=== PATIENT | male | born 1970 | race Caucasian/White ===

== ENCOUNTER → 2018-07-26 | Outpatient (CLI) | payer MEDICARE ==
[~2018-07-26] MED LIST: ISOVUE-370 76% 100ML VIAL (Q9967) As Ordered
[2018-07-26 11:50] LABS: BASO % 0.3 % (0.0-1.0); EOS % 0.3 % (0.0-3.0); HEMATOCRIT 41.9 % (42.0-52.0); IMMATURE GRANULOCYTE % 0.3 % (0-3.0); LYMPH # 2.7 10^3/uL (1.5-4.5); LYMPH % 28.6 % (24.0-44.0); MEAN CORPUSCULAR HEMOGLOBIN 30.5 pg (27.0-33.0); MEAN CORPUSCULAR VOLUME 98.4 fl (80.0-96.0); MONO # 0.5 10^3/uL (0.0-0.8); MONO % 5.4 % (0.0-5.0); NEUTROPHILS # 6.2 10^3/uL (1.8-7.7); NEUTROPHILS % 65.1 % (36.0-66.0); PLATELET COUNT, AUTOMATED 214 10^3/uL (150-450); RED BLOOD COUNT 4.26 10^6/uL (4.30-6.10); RED CELL DISTRIBUTION WIDTH 13.6 % (11.5-14.5); WHITE BLOOD COUNT 9.5 10^3/uL (4.0-10.0)
[2018-07-26 12:19] LABS: ERYTHROCYTE SEDIMENTATION RATE 32 mm/hr (0-15)
[2018-07-26 12:20] LABS: ALBUMIN 3.7 GM/DL (3.2-5.2); ALBUMIN/GLOBULIN RATIO 0.86 (1.00-1.93); ALKALINE PHOSPHATASE 146 U/L (45-117); ALT/SGPT 15 U/L (12-78); ANION GAP 6 MEQ/L (8-16); AST/SGOT 11 U/L (7-37); BILIRUBIN,TOTAL 0.3 MG/DL (0.2-1.0); BLOOD UREA NITROGEN 18 MG/DL (7-18); C REACTIVE PROTEIN QUANTITATIV 2.27 MG/DL (0.00-0.30); CALCIUM LEVEL 9.2 MG/DL (8.5-10.1); CARBON DIOXIDE LEVEL 24 MEQ/L (21-32); CHLORIDE LEVEL 109 MEQ/L (98-107); CREATININE FOR GFR 1.39 MG/DL (0.70-1.30); GLOMERULAR FILTRATION RATE 57.8 (>60); GLUCOSE, FASTING 90 MG/DL (70-100); POTASSIUM SERUM 3.7 MEQ/L (3.5-5.1); SODIUM LEVEL 139 MEQ/L (136-145)
== END ==
LOC: M RAD 11:25
DX: M51.26 Other intervertebral disc displacement, lumbar region (principal); M51.24 Other intervertebral disc displacement, thoracic region; M51.27 Other intervertebral disc displacement, lumbosacral region; M12.88 Other specific arthropathies, not elsewhere classified, other specified site; M54.41 Lumbago with sciatica, right side; Z96.89 Presence of other specified functional implants
CPT/HCPCS: Q9967

== ENCOUNTER → 2018-12-08 | Outpatient (CLI) | payer MEDICARE ==
[~2018-12-08] MED LIST changes: +AMIT25TA2 OR; -ISOVUE-370 76% 100ML VIAL (Q9967) As Ordered; +MELOPOW PO; +NEUR100C OR; +hydrocodone PO
--- NOTE | 2018-12-08 20:10 | REP ---
Low: Exertional chest pain. Technique: PA and lateral. Comparison: 08/18/2013. Findings: Mediastinum and cardiac silhouette are within normal limits and stable. Lung mayorga demonstrate chronic changes without acute consolidation, effusion, or pneumothorax. Impression: Chronic stable changes. No acute cardiopulmonary process or focal consolidation appreciated. Electronically Signed by Reg Costello MD 12/08/2018 08:01 P
--- NOTE | 2018-12-08 20:40 | REP ---
Clinical: Acute thoracic pain. Technique: AP, lateral, swimmers views of the thoracic spine. Findings: Chronic dextroconvex scoliosis and mild/moderate multilevel degenerative changes include endplate sclerosis and disc space narrowing. Alignment and kyphosis maintained. No acute fracture / compression injury or subluxation identified. Neural stimulator in the mid/lower thoracic epidural space. Impression: Mild/moderate multilevel degenerative changes. No acute fracture / compression injury or subluxation. Electronically Signed by Reg Costello MD 12/08/2018 08:32 P
== END ==
LOC: M ADAMS 16:09
PROVIDERS: ATTEND Physician Assistant
DX: R07.9 Chest pain, unspecified (principal); M41.9 Scoliosis, unspecified; M51.34 Other intervertebral disc degeneration, thoracic region
CPT/HCPCS: 71046; 72070; 80053; 80061; 82607; 82746; 84439; 84443; 85027; G0463

== ENCOUNTER → 2019-05-23 | Outpatient (REF) | payer MEDICARE ==
[2019-05-23 16:39] LABS: BASO % 0.5 % (0.0-1.0); EOS % 0.7 % (0.0-3.0); HEMOGLOBIN 13.1 g/dl (13.5-17.5); LYMPH # 2.2 10^3/uL (1.5-5.0); LYMPH % 37.5 % (24.0-44.0); MEAN CORPUSCULAR HEMOGLOBIN 30.4 pg (27.0-33.0); MEAN CORPUSCULAR HGB CONC 31.2 g/dl (32.0-36.5); MEAN CORPUSCULAR VOLUME 97.4 fl (80.0-96.0); MONO # 0.3 10^3/uL (0.0-0.8); MONO % 5.8 % (0.0-5.0); NEUTROPHILS # 3.2 10^3/uL (1.5-8.5); NEUTROPHILS % 55.3 % (36.0-66.0); PLATELET COUNT, AUTOMATED 237 10^3/uL (150-450); RED BLOOD COUNT 4.31 10^6/uL (4.30-6.10); WHITE BLOOD COUNT 5.7 10^3/uL (4.0-10.0)
[2019-05-23 16:56] LABS: APPEARANCE, URINE CLEAR (CLEAR); BACTERIA, URINE AUTO NEGATIVE (NEGATIVE); BILIRUBIN, URINE AUTO NEGATIVE (NEGATIVE); BLOOD, URINE BLOOD NEGATIVE (NEGATIVE); COLOR, URINE YELLOW (YELLOW); GLUCOSE, URINE (UA) AUTO NEGATIVE (NEGATIVE); KETONE, URINE AUTO NEGATIVE (NEGATIVE); LEUKOCYTE ESTERASE, URINE AUTO NEGATIVE (NEGATIVE); MUCUS, URINE SMALL (NEGATIVE); NITRITE, URINE AUTO NEGATIVE (NEGATIVE); PROTEIN, URINE AUTO NEGATIVE (NEGATIVE); RBC, URINE AUTO 0 /HPF (0-3); SPECIFIC GRAVITY URINE AUTO 1.006 (1.002-1.035); SQUAMOUS EPITHELIAL CELL UR AU 0 /HPF (0-6); UROBILINOGEN, URINE AUTO 0.2 mg/dL (0.0-2.0); WBC, URINE AUTO 0 /HPF (0-3)
[2019-05-23 17:07] LABS: ALBUMIN 3.8 GM/DL (3.2-5.2); ALT/SGPT 21 U/L (12-78); BILIRUBIN,TOTAL 0.3 MG/DL (0.2-1.0); BLOOD UREA NITROGEN 7 MG/DL (7-18); CALCIUM LEVEL 9.1 MG/DL (8.5-10.1); CARBON DIOXIDE LEVEL 26 MEQ/L (21-32); CHLORIDE LEVEL 104 MEQ/L (98-107); CREATININE FOR GFR 1.34 MG/DL (0.70-1.30); GLOMERULAR FILTRATION RATE > 60.0 (>56); GLUCOSE, FASTING 106 MG/DL (70-100); POTASSIUM SERUM 4.1 MEQ/L (3.5-5.1); SODIUM LEVEL 138 MEQ/L (136-145); TOTAL PROTEIN 7.6 GM/DL (6.4-8.2)
== END ==
LOC: M SFHCPLAZ 14:01
PROVIDERS: ATTEND Physician Assistant Medical
DX: N20.0 Calculus of kidney (principal); R30.0 Dysuria
CPT/HCPCS: 36415; 80053; 81001; 85025; G0463

== ENCOUNTER 2019-10-26 15:13 | Emergency (ER) | payer MEDICARE, OTHER ==
[~2019-10-26] VITALS: Ht 175.3 cm; Wt 63.5 kg
[2019-10-26] MEDS ORDERED: GABA800T4 (15:23)
[2019-10-26] MEDS ORDERED: SUMA100T2 (15:23)
[2019-10-26] MEDS ORDERED: AMIT100TA (15:23)
[2019-10-26] MEDS ORDERED: SUBO8MIS (15:23)
[2019-10-26] MEDS ORDERED: ALBU8.5H (15:23)
[2019-10-26] MEDS ORDERED: BUPR20DI3 (15:23)
--- NOTE | 2019-10-26 17:24 | REP ---
Clinical: Cough and dyspnea . Comparison: 12/08/2018 . Findings: The mediastinum and cardiac silhouette are stable and within normal limits for portable technique. The lung mayorga are clear without acute consolidation, effusion, or pneumothorax. Skeletal structures are intact. Epidural stimulator stable position. Impression: No acute cardiopulmonary process appreciated. Electronically Signed by Reg Costello MD 10/26/2019 05:16 P
[2019-10-26 17:27] LABS: BASO % 0.3 % (0.0-1.0); EOS # 0.1 10^3/uL (0.0-0.5); EOS % 0.5 % (0.0-3.0); HEMOGLOBIN 13.6 g/dl (13.5-17.5); LYMPH # 2.3 10^3/uL (1.5-5.0); LYMPH % 24.7 % (24.0-44.0); MEAN CORPUSCULAR HEMOGLOBIN 29.5 pg (27.0-33.0); MEAN CORPUSCULAR HGB CONC 30.9 g/dl (32.0-36.5); MEAN CORPUSCULAR VOLUME 95.4 fl (80.0-96.0); MONO # 0.5 10^3/uL (0.0-0.8); MONO % 5.3 % (0.0-5.0); NEUTROPHILS # 6.5 10^3/uL (1.5-8.5); PLATELET COUNT, AUTOMATED 242 10^3/uL (150-450); RED BLOOD COUNT 4.61 10^6/uL (4.30-6.10); WHITE BLOOD COUNT 9.4 10^3/uL (4.0-10.0)
[2019-10-26 17:55] LABS: INFLUENZA A AMPLIFICATION NEGATIVE (NEGATIVE); INFLUENZA B AMPLIFICATION NEGATIVE (NEGATIVE)
[2019-10-26 17:56] LABS: BLOOD UREA NITROGEN 8 MG/DL (7-18); CALCIUM LEVEL 8.6 MG/DL (8.5-10.1); CARBON DIOXIDE LEVEL 22 MEQ/L (21-32); CHLORIDE LEVEL 106 MEQ/L (98-107); CK-MB VALUE MASS < 1.0 NG/ML (<3.6); CPK CREATINE PHOSPHOKINASE 49 U/L (39-308); GLOMERULAR FILTRATION RATE > 60.0 (>56); GLUCOSE, FASTING 75 MG/DL (70-100); MB/CK RELATIVE INDEX 2.04 (< OR =4); POTASSIUM SERUM 4.3 MEQ/L (3.5-5.1); SODIUM LEVEL 138 MEQ/L (136-145); TROPONIN I < 0.02 NG/ML (< 0.10)
[2019-10-26] MEDS ORDERED: ISOVUE-370 76% 100ML VIAL (Q9967) As Ordered ONE (18:26)
[2019-10-26] MEDS ORDERED: methylPREDNISolone INJ 125 MG/2 ML VIAL (J2930) IV ONE (18:30)
--- NOTE | 2019-10-26 19:25 | REPVR ---
PROCEDURE INFORMATION: Exam: CT Angiography Chest With Contrast Exam date and time: 10/26/2019 6:31 PM Age: 49 years old Clinical indication: Shortness of breath; Additional info: SOB; R/O pe TECHNIQUE: Imaging protocol: Computed tomographic angiography of the chest with intravenous contrast. 3D rendering: MIP and/or 3D reconstructed images were created by the technologist. Radiation optimization: All CT scans at this facility use at least one of these dose optimization techniques: automated exposure control; mA and/or kV adjustment per patient size (includes targeted exams where dose is matched to clinical indication); or iterative reconstruction. Contrast material: ISOVUE 370; Contrast volume: 75 ml; Contrast route: IV; COMPARISON: CR PORTABLE CHEST X-RAY 10/26/2019 5:04 PM FINDINGS: Pulmonary arteries: There is opacification of the pulmonary arteries with no evidence of pulmonary embolus. Aorta: There is opacification of the aorta which appears intact. Lungs: Clear appearing lungs. Pleural space: There is no evidence of pneumothorax or pleural effusion. Heart: The heart is normal in size and there is no pericardial effusion. Kidneys and ureters: There is a 5 mm calcified stone upper pole right kidney and nonobstructive. Lymph nodes: There are moderate-sized lymph nodes along the trachea 3 of which measure approximately 2 cm each. The lymph nodes in the subcarinal location or 1 cm each. Bones/joints: There is no evidence of a fracture. A stimulator device is noted lower thoracic spinal canal. Soft tissues: Unremarkable. IMPRESSION: No evidence of pulmonary embolus. Electronically signed by: Josue Aden On 10/26/2019 19:25:08 PM
[2019-10-26 20:25] VITALS: O2SAT 95
[2019-10-26] MEDS ORDERED: PRED10TA2 PO (20:30)
[2019-10-26 20:33] VITALS: BP 178/91
--- NOTE | 2019-10-27 05:49 | ECGEPIP ---
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
== END 2019-10-26 20:50 | disposition home or self-care (01) ==
LOC: M ED 15:13
DX: J44.1 Chronic obstructive pulmonary disease with (acute) exacerbation (principal); Z79.899 Other long term (current) drug therapy; Z79.891 Long term (current) use of opiate analgesic; Z88.5 Allergy status to narcotic agent; F17.210 Nicotine dependence, cigarettes, uncomplicated
CPT/HCPCS: 71045; 71275; 80048; 82550; 82553; 84484; 85025; 87502; 93005; 93041; 94760; 96374; 99285; J2930; Q9967

== ENCOUNTER → 2020-11-05 | Outpatient (REF) | payer OTHER ==
[~2020-11-05] MED LIST changes: +ALBU8.5H; +AMIT100TA; +BUPR20DI3; +GABA800T4; +PRED10TA2 PO; +SUBO8MIS; +SUMA100T2
[2020-11-05 17:20] LABS: HEMOGLOBIN 12.7 g/dl (13.5-17.5); MEAN CORPUSCULAR HEMOGLOBIN 29.5 pg (27.0-33.0); MEAN CORPUSCULAR HGB CONC 30.2 g/dl (32.0-36.5); MEAN CORPUSCULAR VOLUME 97.7 fl (80.0-96.0); PLATELET COUNT, AUTOMATED 221 10^3/uL (150-450); WHITE BLOOD COUNT 5.6 10^3/uL (4.0-10.0)
[2020-11-05 17:51] LABS: ALBUMIN 3.7 GM/DL (3.2-5.2); ALT/SGPT 19 U/L (12-78); BILIRUBIN,TOTAL 0.5 MG/DL (0.2-1.0); BLOOD UREA NITROGEN 7 MG/DL (7-18); CALCIUM LEVEL 9.3 MG/DL (8.5-10.1); CARBON DIOXIDE LEVEL 26 MEQ/L (21-32); CHLORIDE LEVEL 107 MEQ/L (98-107); CHOLESTEROL LEVEL 220 MG/DL (<200); CHOLESTEROL RISK RATIO 4.313 (<5); CREATININE FOR GFR 1.28 MG/DL (0.70-1.30); FREE T4 0.95 NG/DL (0.76-1.46); GLOMERULAR FILTRATION RATE > 60.0 (>56); GLUCOSE, FASTING 73 MG/DL (70-100); HDL CHOLESTEROL 51 MG/DL (>40); LDL CHOLESTEROL 149 MG/DL (<100); NON-HDL-C 169 MG/DL; POTASSIUM SERUM 5.4 MEQ/L (3.5-5.1); SODIUM LEVEL 138 MEQ/L (136-145); THYROID STIMULATING HORMONE 0.725 uIU/ML (0.358-3.740); TOTAL PROTEIN 7.3 GM/DL (6.4-8.2); TRIGLYCERIDES LEVEL 98 MG/DL (<150)
== END ==
LOC: M SFHCADAM 15:01
PROVIDERS: ATTEND Family Medicine
DX: I73.9 Peripheral vascular disease, unspecified (principal); R06.00 Dyspnea, unspecified; Z79.899 Other long term (current) drug therapy
CPT/HCPCS: 80053; 80061; 84439; 84443; 85027; G0463

== ENCOUNTER → 2020-11-25 | Outpatient (CLI) | payer OTHER ==
--- NOTE | 2020-11-25 19:06 | REP ---
INDICATION: COPD. COMPARISON: Chest CT with IV contrast dated 10/26/2019. TECHNIQUE: Chest CT without IV contrast. FINDINGS: Low there are no infiltrates or pleural effusions. There are no lung nodules or masses. Is difficult to identify any bulla. I suspect there is borderline bronchiectasis. There are minor areas of dependent atelectasis in the lung bases. The lung mayorga are otherwise clear. There is no mediastinal or axillary lymph node enlargement. The study is insensitive for hilar lymph node enlargement in the absence of IV contrast. The unenhanced thoracic aorta is unremarkable. Cardiac size is normal. There is no pericardial effusion. The visualized unenhanced upper abdominal contents are unremarkable except for 2 or 3 tiny nonobstructive calculi in the upper pole of the right kidney. There are no adrenal masses. IMPRESSION: No bulla are identified. There are no infiltrates or pleural effusions. There are no nodules or masses. I suspect there is borderline bronchiectasis. Otherwise, negative CT study of the chest. <Electronically signed by Ivan Devine > 11/25/20 [id number]
== END ==
LOC: M RAD 18:12
PROVIDERS: ATTEND Family Medicine
DX: J44.9 Chronic obstructive pulmonary disease, unspecified (principal)

== ENCOUNTER → 2020-12-05 | Outpatient (CLI) | payer OTHER ==
--- NOTE | 2020-12-06 10:42 | ECHO ---
DATE OF PROCEDURE: 12/05/2020 Age: 50 Gender: Male Height: 175 cm Weight: 64 kg REFERRING PHYSICIAN: Mauricio Zamudio MD. INDICATION: Dyspnea. MEASUREMENTS: IVS 1.3 cm LV 5.3 cm LVPW 0.9 cm LA 4.1 cm Aorta 2.9 cm IVC 1.6 cm Mitral E wave velocity 203 Mitral A wave 215 E prime septal 6.0 E prime lateral 9.2. FINDINGS: This study is of fair technical quality with some difficult visualization. The patient is in sinus rhythm with ventricular rate around 90 beats per minute. Left ventricle is normal size and has hyperdynamic contractility. I estimate LVEF 70% to 75%. No segmental wall motion abnormalities are noted. Right ventricle was relatively poorly visualized, but it appears normal size and appears to have normal systolic function. Both atria are enlarged. Aortic valve is tricuspid, it is sclerotic, especially noncoronary cusps have significant calcifications, but mobility of cusps is preserved. There are prominent calcifications in the chordal apparatus and mitral leaflets. Based on poor quality 2D imaging, there is at least moderate mitral stenosis. Tricuspid valve appears normal. Pulmonic valve was not seen. No pericardial effusion is noted. Inferior vena cava is of normal size and appropriately collapses with inspiration, indicative of normal central venous pressure. Aortic root, aortic arch, and visualized segment of the abdominal aorta all appear normal. Doppler interrogation of the aortic valve reveals no significant stenosis or insufficiency. There is likely severe mitral insufficiency and at least moderate mitral stenosis. Peak gradient was 22 and mean gradient 12 mmHg. Moderate tricuspid insufficiency is noted. Calculated pulmonary artery pressure is approximately 70 mmHg corresponding to severe pulmonary hypertension. Evaluation of diastolic function is inconclusive discussed to underlying mitral stenosis. CONCLUSIONS: 1. Study is of fair technical quality, the patient is in sinus rhythm. 2. Normal LV size with mild LVH, estimated LVEF 70% to 75%. 3. Aortic sclerosis with no significant stenosis or insufficiency. 4. 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 5. Normal central venous pressure. 6. Severe pulmonary hypertension. COMMENTS: The patient has very significant mitral valvular disease. Further evaluation is recommended with either direct cardiac catheterization or first transesophageal echocardiogram with cardiac catheterization to follow in preparation for mitral valve surgery. [facility]
== END ==
LOC: M CARPUL 10:21
PROVIDERS: ATTEND Family Medicine
DX: R06.00 Dyspnea, unspecified (principal); I35.0 Nonrheumatic aortic (valve) stenosis; I27.20 Pulmonary hypertension, unspecified

== ENCOUNTER → 2021-01-01 | Outpatient (CLI) | payer OTHER ==
--- NOTE | 2021-01-01 11:18 | REP ---
INDICATION: ATH RITA ART OF EXT WI INTRMT SHELLY, AIDAN LEGS. COMPARISON: None. TECHNIQUE: Bilateral lower extremity arterial Doppler ultrasound. FINDINGS: Ankle brachial indices are normal measured at 1.23 on the right and 1.23 on the left. Minimal plaquing is seen bilaterally in the lower extremity arterial tree. Normal triphasic arterial Doppler waveforms are noted throughout bilaterally. There is no evidence of high-grade stenosis or occlusion on either side. Right lower extremity arterial Doppler velocity chart: Right [employer]ING [employer]ER PSV 150 cm/S Profundal 151 Proximal SFA 143 Mid SFA 103 Distal SFA 89 Popliteal 86 Proximal TLIA 76 Tibial-peroneal trunk 76 Proximal [facility] EPIDEMIOLOGIST 75 Distal [facility] EPIDEMIOLOGIST 87 Distal TILA 76 Left lower extremity arterial Doppler velocity chart: Left [employer]ING [employer] PSV 117 cm/S Profundal 116 Proximal SFA 129 Mid SFA 93 Distal SFA 83 Popliteal 89 Proximal TILA 61 Tibial-peroneal trunk 78 Proximal [facility] EPIDEMIOLOGIST 97 Distal [facility] EPIDEMIOLOGIST 75 Distal TILA 75 IMPRESSION: Minimal plaquing. No high-grade stenosis or occlusion. <Electronically signed by Arash Gonzalez > 01/01/21 [id number]
== END ==
LOC: M RAD 10:20
PROVIDERS: ATTEND Physician Assistant
DX: I70.213 Atherosclerosis of native arteries of extremities with intermittent claudication, bilateral legs (principal)

== ENCOUNTER → 2021-01-25 | Outpatient (CLI) | payer OTHER ==
[~2021-01-25] MED LIST changes: -ALBU8.5H; +ALBU8.5H INH; -AMIT100TA; +AMIT100TA PO; -GABA800T4; +GABA800T4 PO; -SUMA100T2; +SUMA100T2 PO
== END ==
LOC: M LABSMTC 10:32
PROVIDERS: ATTEND Anesthesiology
DX: Z01.818 Encounter for other preprocedural examination (principal); Z11.52 Encounter for screening for COVID-19

== ENCOUNTER 2021-01-29 06:05 | Day surgery (SDC) | payer OTHER ==
[~2021-01-29] VITALS: Ht 175.3 cm; Wt 63.4 kg
[~2021-01-29 06:05] MED LIST changes: +LR 1,000 ML IV ONE
[2021-01-29] MEDS ORDERED: LISI-898 PO (06:31)
[2021-01-29] MEDS ORDERED: ATOR80TA59 PO (06:31)
[2021-01-29] MEDS ORDERED: FLOV100A INH (06:31)
[2021-01-29] MEDS ORDERED: SPIR12.9 INH (06:31)
[2021-01-29] MEDS ORDERED: fentaNYL 100 MCG/2 ML INJECTION (J3010) As Ordered ONE (07:14)
[2021-01-29] MEDS ORDERED: LIDOCAINE 2% 100MG/5ML SDV (FOR ANES.) As Ordered ONE (07:14)
[2021-01-29] MEDS ORDERED: propofoL 200 MG/20 ML VIAL As Ordered ONE (07:15)
[2021-01-29] MEDS ORDERED: CETACAINE SPRAY 5GM As Ordered ONE (07:19)
[2021-01-29] MEDS ORDERED: LIDOCAINE VISCOUS 2% SOLN 15ML UDC As Ordered ONE (07:19)
[2021-01-29] MEDS ORDERED: GLYCOPYRROLATE INJ 0.2 MG/ML 2 ML VIAL As Ordered ONE (07:46)
[2021-01-29] MEDS ORDERED: VASOPRESSIN INJ 20 UNITS/ML VIAL As Ordered ONE (07:48)
[2021-01-29] MEDS ORDERED: ePHEDrine SULFATE 25 MG/5 ML(5MG/ML) SYRINGE As Ordered ONE (07:53)
[2021-01-29] MEDS ORDERED: LR 1,000 ML IV SCH (08:35)
[2021-01-29 08:36] VITALS: BP 104/58
--- NOTE | 2021-01-29 08:56 | ECGEPIP ---
[facility] Test Date: 2021-01-29 Pat Name: PRINCESS MONTES Department: Room: - Gender: Male Radio Installer: celso : 1970 Requested By: Toby Parish Order Number: [id number] Reading MD: Molina Howard Measurements Intervals [place] Rate: 61 P: 77 ID: [id number] QRS: 63 QRSD: 94 T: 64 QT: 396 QTc: 398 Interpretive Statements Normal sinus rhythm Possible Left atrial enlargement Similar to tracing done 10-26-19 Electronically Signed on 01-29-2021 8:55:51 EDT by Molina Howard
--- NOTE | 2021-01-29 18:45 | T-ECHO ---
TRANSESOPHAGEAL ECHO DATE: 01/29/2021 INDICATION: Mitral valve disease. Anesthesiology: Rosalio Soni CRNA BRIEF HISTORY: Mr. Andrews is a 50-year-old man who has had severe exertional dyspnea that has gotten much worse over the course of the last several months. He also has symptoms suggestive of PND. Cardiac catheterization revealed evidence for mild nonobstructive CAD and approximately moderate mitral stenosis, but left ventriculogram was not performed and consequently the severity of mitral insufficiency has remained uncertain. I discussed the nature of the procedure with the patient on an outpatient basis and he signed appropriate consent. The procedure was performed in the operating room. DESCRIPTION OF PROCEDURE: The patient presented in a fasting condition. After appropriate time-out was taken and all appropriate monitors were applied, his posterior pharynx was anesthetized using viscous Lidocaine and Cetacaine spray. He was then positioned in the left lateral decubitus position. Bite block and oxygen mask were placed. When anesthesiology administered sedation the probe was introduced into the esophagus and later the stomach without difficulty. After appropriate images were obtained it was withdrawn. There were no immediate complications, but the patient did have episodes of hypotension and a brief episode of bradycardia during the procedure. The patient recovered promptly in recovery. FINDINGS: Normal left ventricular systolic function with estimated LVEF 60% to 65%. I do not appreciate any segmental wall motion abnormalities. Also the right ventricle is of normal size and systolic function. Right atrium is normal size. Left atrium appears severely enlarged. Aortic valve is tricuspid. It has normal mobility and no significant functional abnormality. Tricuspid valve also appears anatomically normal. There is tricuspid insufficiency seen. Quality of signal was not sufficient to adequately estimate pulmonary artery pressure. Pulmonic valve was not well seen. Atrial septum is intact based on two-dimensional and color Doppler imaging. The left atrial appendage is free of thrombi. There is early systolic reversal of flow in the left, but not right-sided, pulmonary veins. The mitral valve appears severely thickened. There is restriction of leaflet motion and prolapse of anterior mitral leaflet. By color Doppler imaging, there is approximately moderate mitral insufficiency with several MR jets, but there is a flow reversal in the left lower pulmonary vein suggesting that the mitral insufficiency is potentially severe. The mean transmitral gradient is 7 and peak gradient 20 mmHg corresponding to moderate mitral stenosis. The aortic arch and visualized segment of descending aorta are indicative of atherosclerosis, even though there are no ulcerations or visible thrombi. CONCLUSION: 1. Preserved left ventricular systolic function. 2. Preserved right ventricular systolic function. 3. 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 Stenosis is likely moderate, insufficiency moderately severe or severe. 4. Left atrial appendage is free of thrombus. 5. Early systolic reversal of flow in the left-sided pulmonary veins. 6. Intact atrial septum. 7. Trace tricuspid insufficiency. 8. Competent aortic valve. 9. Atherosclerosis apparent in the thoracic aorta. The patient will be seen in follow-up next week to discuss further management. [facility]
== END 2021-01-29 09:00 | disposition home or self-care (01) ==
LOC: M SDC 06:05
PROVIDERS: ATTEND Internal Medicine Cardiovascular Disease
DX: I08.2 Rheumatic disorders of both aortic and tricuspid valves (principal); I70.0 Atherosclerosis of aorta; R06.09 Other forms of dyspnea; I25.10 Atherosclerotic heart disease of native coronary artery without angina pectoris; K21.9 Gastro-esophageal reflux disease without esophagitis; R06.02 Shortness of breath; M19.90 Unspecified osteoarthritis, unspecified site; G90.50 Complex regional pain syndrome I, unspecified; G43.909 Migraine, unspecified, not intractable, without status migrainosus; J44.9 Chronic obstructive pulmonary disease, unspecified; G47.9 Sleep disorder, unspecified; Z96.82 Presence of neurostimulator; Z87.442 Personal history of urinary calculi; F17.210 Nicotine dependence, cigarettes, uncomplicated; Z88.5 Allergy status to narcotic agent; Z79.899 Other long term (current) drug therapy; Z79.82 Long term (current) use of aspirin; Z79.51 Long term (current) use of inhaled steroids; Z79.891 Long term (current) use of opiate analgesic
CPT/HCPCS: 93005; 93312; 93320; 93325; J3010

== ENCOUNTER 2021-02-21 16:45 | Emergency (ER) | payer OTHER ==
[~2021-02-21] VITALS: Ht 175.3 cm; Wt 68.2 kg
[~2021-02-21 16:45] MED LIST changes: +ATOR80TA59 PO; +FLOV100A INH; +LISI-898 PO; -LR 1,000 ML IV ONE; +SPIR12.9 INH
[2021-02-21 16:46] VITALS: BP 135/94
[2021-02-21] MEDS ORDERED: ECOT81TA5 PO (16:53)
[2021-02-21] MEDS ORDERED: MORPHINE 4 MG/ML 1ML VIAL/SYRINGE (J2270) IV ONE (17:30)
--- NOTE | 2021-02-21 18:01 | REP ---
INDICATION: trauma. COMPARISON: None. TECHNIQUE: AP and lateral views of the left humerus are presented. FINDINGS: AP and latter views of the oral left humerus demonstrate normal bones, joints, and soft tissues. No fracture or subluxation is seen. No opaque foreign body noted. IMPRESSION: Negative left humerus series. <Electronically signed by Arash Gonzalez > 02/21/21 [id number]
--- NOTE | 2021-02-21 18:02 | REP ---
INDICATION: trauma. COMPARISON: None. TECHNIQUE: Four views of the left foot are presented. FINDINGS: Four views of the left foot demonstrate normal bones, joints, and soft tissues. No fracture or subluxation is seen. No opaque foreign body noted. There is plantar calcaneal spurring. IMPRESSION: Negative left foot series. Heel spurring. <Electronically signed by Arash Gonzalez > 02/21/21 [id number]
--- NOTE | 2021-02-21 18:03 | REP ---
INDICATION: trauma. COMPARISON: None. TECHNIQUE: Four views of the left ankle. FINDINGS: Four views of the left ankle demonstrate intact ankle mortise. Achilles calcaneal spurring is noted. No fracture is seen. There is a small bone island in the distal tibia. Joint spaces are preserved. IMPRESSION: No acute abnormality. Heel spurring. Otherwise negative. <Electronically signed by Arash Gonzalez > 02/21/21 [id number]
== END 2021-02-21 19:56 | disposition home or self-care (01) ==
LOC: M ED 16:45
DX: S93.402A Sprain of unspecified ligament of left ankle, initial encounter (principal); S40.022A Contusion of left upper arm, initial encounter; W17.89XA Other fall from one level to another, initial encounter; Y92.009 Unspecified place in unspecified non-institutional (private) residence as the place of occurrence of the external cause; Y93.89 Activity, other specified; Y99.8 Other external cause status; J44.9 Chronic obstructive pulmonary disease, unspecified; Z79.51 Long term (current) use of inhaled steroids; Z79.82 Long term (current) use of aspirin; Z79.899 Other long term (current) drug therapy; Z87.442 Personal history of urinary calculi; Z87.820 Personal history of traumatic brain injury; Z88.5 Allergy status to narcotic agent
CPT/HCPCS: 73060; 73610; 73630; 96374; 99284; J2270

== ENCOUNTER → 2021-06-20 | Outpatient (CLI) | payer OTHER ==
[~2021-06-20] MED LIST changes: +ECOT81TA5 PO
--- NOTE | 2021-06-20 10:17 | REP ---
INDICATION: RT GROIN PAIN, RT LEG PAIN, SWELLINGC COMPARISON: None. TECHNIQUE: Block scale and color Doppler evaluation using linear high frequency transducer. FINDINGS: Ultrasound examination of the right lower extremity deep venous structures from the common femoral vein through the calf/ankle to include the peroneal, and tibial veins demonstrates normal compressibility flow and wave patterns in response to respiration and augmentation. There is no evidence for deep venous thrombosis. Contralateral CFV is patent and normal. IMPRESSION: No evidence for deep venous thrombosis. <Electronically signed by Reg Costello > 06/20/21 [id number]
--- NOTE | 2021-06-20 10:19 | REP ---
INDICATION: RT GROIN PAIN, RT LEG PAIN, SWELLINGC COMPARISON: None. TECHNIQUE: Directed B-mode ultrasound examination using linear high-frequency transducer. FINDINGS: Directed ultrasound examination over the palpable mass in the right groin demonstrates 3.5 x 2.5 x 2.9 cm complex septated fluid collection suggesting hematoma and less likely abscess. Color evaluation demonstrates no vascularity or flow within the lesion. IMPRESSION: Complex septated fluid collection most compatible with hematoma. <Electronically signed by Reg Costello > 06/20/21 1016
== END ==
LOC: M RAD 09:23 → M LAB 09:23
PROVIDERS: ATTEND Physician Assistant
DX: R93.5 Abnormal findings on diagnostic imaging of other abdominal regions, including retroperitoneum (principal); R60.0 Localized edema; R22.9 Localized swelling, mass and lump, unspecified; I48.3 Typical atrial flutter; Z95.2 Presence of prosthetic heart valve

== ENCOUNTER → 2021-06-26 | Outpatient (CLI) | payer OTHER ==
[2021-06-26 17:22] LABS: BASO # 0.1 10^3/uL (0.0-0.2); BASO % 0.9 % (0.0-1.0); EOS # 0.1 10^3/uL (0.0-0.5); EOS % 1.7 % (0.0-3.0); HEMATOCRIT 42.5 % (42.0-52.0); HEMOGLOBIN 12.3 g/dl (13.5-17.5); LYMPH # 2.5 10^3/uL (1.5-5.0); LYMPH % 36.1 % (24.0-44.0); MEAN CORPUSCULAR HGB CONC 28.9 g/dl (32.0-36.5); MEAN CORPUSCULAR VOLUME 96.6 fl (80.0-96.0); MONO # 0.4 10^3/uL (0.0-0.8); MONO % 6.2 % (2.0-8.0); NEUTROPHILS # 3.8 10^3/uL (1.5-8.5); NEUTROPHILS % 54.8 % (36.0-66.0); PLATELET COUNT, AUTOMATED 245 10^3/uL (150-450); WHITE BLOOD COUNT 6.9 10^3/uL (4.0-10.0)
[2021-06-26 17:37] LABS: INR 1.34
[2021-06-26 17:40] LABS: ALBUMIN 3.4 GM/DL (3.2-5.2); BILIRUBIN,TOTAL 0.3 MG/DL (0.2-1.0); CALCIUM LEVEL 8.4 MG/DL (8.5-10.1); CREATININE FOR GFR 1.7 MG/DL (0.70-1.30); FREE T4 1.04 NG/DL (0.76-1.46); GLOMERULAR FILTRATION RATE 45.3 (>56); POTASSIUM SERUM 4.7 MEQ/L (3.5-5.1); THYROID STIMULATING HORMONE 2.14 uIU/ML (0.358-3.740); TOTAL PROTEIN 7.2 GM/DL (6.4-8.2)
== END ==
LOC: M PLALAB 14:44
PROVIDERS: ATTEND Physician Assistant
DX: I48.3 Typical atrial flutter (principal); R22.9 Localized swelling, mass and lump, unspecified; Z95.2 Presence of prosthetic heart valve; R60.0 Localized edema

== ENCOUNTER 2021-07-08 17:16 | Emergency (ER) | payer OTHER ==
[~2021-07-08] VITALS: Ht 175.3 cm; Wt 60.0 kg
--- OUTSIDE RECORDS SUMMARY | 2021-07-08 17:26 | CCD ---
Author Author [facility] Organization [facility] Address Unknown Phone Unavailable Care Team Providers Care Key Ringer Name Role Phone Lorie Zamudio Unavailable PROBLEMS Type Condition ICD9-CM Code [id number] Code Onset Dates Condition S tatus W/U Status Risk SNOMED Code Notes Problem Migraine with aura and with status migrainosus, not intractable G43.101 Active confirmed 2894353 Problem Suspected sleep apnea G47.30 Active confirmed 92391380 Problem Acute right-sided low back pain with right-sided sciatica M54.41 Active confirmed 041766635 Problem Anxiety and depression F41.8 Active confirmed 585985381 Problem DDD (degenerative disc disease), lumbar M51.36 Active confirmed 33867507 Problem Insomnia due to medical condition G47.01 Active confirmed [id number] Problem Complex regional pain syndrome type 1 of left lower ex tremity G90.522 Active confirmed [id number] As above, we are increasing the gabapentin dose Problem Cigarette nicotine dependence without complication F17.210 Active confirmed 49183501 Problem Other chronic pain G89.29 Active confirmed 8 4576494 Problem Mixed hyperlipidemia E78.2 Active confirmed 881814386 Problem Chronic obstructive pulmonary disease, unspecified COPD ty pe J44.9 Active confirmed 43425814 Problem Acquired hyperlipoproteinemia E78.5 Active confirm ed 3510107 Problem Pain in left knee M25.562 Active confirmed 3 5328251 Adrian will continue his current care with the orthopedic group and I will try to coordinate care as needed between the specialists Problem Kidney stones N20.0 Active confirmed 517566 07 Problem Low back pain M54.5 Active confirmed 790120 009 We have increased his gabapentin to 800 mg 3 times a day, and I encouraged Adrian to talk to his orthopedist about repairing her replacing the dorsal column stimulator when he sees them in a few weeks. In the meantime, I also encouraged him to use a hot tub that is available to him as often as possible and to do gentle stretching exercises of the back while in the hot tub. Since his right back pain is not Worker's Compensation related, I advised him to talk to his primary care provider to see if he can get some muscle relaxers for that Problem Medicare annual wellness visit, subsequent Z00.00 Active confirmed 580584641 Problem PAD (peripheral artery disease) I73.9 Active confi rmed 805778343 Problem Claudication of both lower extremities I73.9 A ctive confirmed 59859693 Problem Mitral stenosis with insufficiency, rheumatic I05. 2 Active confirmed 830985 ALLERGIES Allergen (clinical drug ingredient) Drug/Non Drug Allergy do cumented on EMR Reaction Allergy Type Onset Date Status Codeine Phosphate (For Allergies Use Only) Rash Drug Allergy Active varenicline Chantix([facility] Code:[address]-05) nightmares Drug Allergy Active ENCOUNTERS from 1968 to 2021-05-28 Encounter Location Date Provider Diagnosis [facility] [address] [place] [address] 15 May, 2021 Lorie Wetterhahn Migraine with aura and with status migra inosus, not intractable G43.101 and Low back pain M54.5 IMMUNIZATIONS Vaccine Route Administration Date Status Toradol 30mg/1mL Ketorolac IM Intramuscular Jul 26, 2018 Admi nistered Influenza 6mo & up Fluzone Unknown Oct 07, 2017 Other s Influenza 6mo & up Fluzone Unknown November 29, 2014 Refus ed SOCIAL HISTORY Tobacco Use: Social History Observation Description Date Details (start date - stop date) Current Smoker Sex Assigned At : Social History Observation Description Sex Assigned At Unknown Education: Question Answer Notes Level of Education: High School Audit Question Answer Notes Total Score: 0 Interpretation: Alcohol Education Drug and Alcohol Question Answer Notes Total Score: 0 Interpretation: No problems reported Alcohol Screening: Question Answer Notes Did you have a drink containing alcohol in the past year? No Points 0 Interpretation Negative BMI Care Goal Follow-Up Question Answer Notes Below Normal BMI Follow-Up Dietary education for weight gain Tobacco Use: Question Answer Notes Are you a: current smoker Smoking Cessation Information Given 04/27/2018 Patient counseled on the dangers of tobacco use and urged to quit: 11/05/2020 How many cigarettes a day do you smoke? 11-20 Are you interested in quitting? Not ready to quit Counseled the patient on smoking effects, education provided 11/05/2020 REASON FOR REFERRAL No Information VITAL SIGNS No information MEDICATIONS Medication SIG (Take, Route, Frequency, Duration) Notes Start Da te End Date Status Gabapentin 800 MG TAKE ONE TABLET BY MOUTH THREE TIMES A DAY for 30 Active SUMAtriptan Succinate 100 MG TAKE 1 TABLET BY MOUTH NEEDED FOR HEADACHE MAY REPEAT IN 2 HR X 1 IF NEED for 21 Active Buprenorphine HCl-Naloxone HCl 8-2 MG 1 tablet under t he tongue and allow to dissolve Sublingual 1 tab 3times a day 1/2 tab at bedtime (suboxone, for pain, not addiction) Active Flovent Diskus 100 MCG/BLIST 1 puff Inhalation Twice a day for 30 Day s Active Meloxicam 15 MG 1 tablet Orally Once a day Not-Taking Incruse Ellipta 62.5 MCG/INH 1 puff Inhalation Once a day for 30 Days Sep, Not-Taking Flomax 0.4 MG 1 capsule Orally Once a day for 30 day(s) May, Not-Taking Flovent HFA 110 MCG/ACT 1 puff Inhalation Twice a day for 30 day s Oct, Not-Taking Benzonatate 100 MG 1 - 2 capsules as needed Ora lly Three times a day as needed for cough for 5 days Dec, Active Pro Comfort Spacer Adult - as directed Spacer for Vent jones J44.9 as directed for 30 days Dec, Active Gabapentin 800 MG 1 tablet Orally Three times a day for 30 days Mar, Active ProAir HFA 108 (90 Base) MCG/ACT 1 puff as needed Inha lation every 4 hrs as needed for shortness of breath for 30 Days Active Imitrex 100 MG 1 tablet as needed prn heada rigo Orally Daily; may repeat 2 hours later x 1 for 21 Active Aspirin 81 MG 1 tablet Orally Once a day for 30 day(s) Oct, Active buPROPion HCl ER (SR) 100 MG 1 tablet in the morning O rally Once a day for 30 day(s) Nov, Active Spiriva Respimat 2.5 MCG/ACT 2 puffs Inhalation Once a day for 30 Day s Active Amitriptyline HCl 100 MG 1 tablet Orally Once a day for 30 Active Amoxicillin 875 MG 1 tablet Orally every 12 hrs for 10 day(s) Dec, Not-Taking Atorvastatin Calcium 80 MG 1 tablet Orally Once a day for 30 day (s) Nov, Active PROCEDURES No Information RESULTS No Results REASON FOR VISIT refills 1 med out MEDICAL (GENERAL) HISTORY Type Description Date Medical History Hyperlipidemia - has PAD, started statin 12/01 Medical History CLuster Migraines - Previous ly folllowed by local Neurology - Discharged from practice due to no-shows Medical History KIDNEY STONE Medical History pericarditis Medical History DDD/DJD - CT back 07/2018 sh owed multilevel discogenic changes unchanged c/w 11/2014, L5-S1 broad based annular bulge, minimal central canal stenosis, CT cannot R/O disc extrusion (Unable to get MRI due to Dorsal Column Stimulator) - Patient was referred to Neurosurgery locally, but appt kept getting pushed out so he did not bother to reschedule. Medical History regional complex pain syndro me (Sequela of Back injury from 2004) -also Worker's comp. 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 Medical History Nicotine Dependence Medical History COPD - Spirometry 10/02: FE V1 = 2.08 - 79% PREDICTED/FVC = 4.74 RATIO = 63% Medical History Echo 12/01: severe MR, at neo st moderate MS, EF 75%; Peak gradient was 22 and mean gradient 12 mmHg. Moderate tricuspid insufficiency is noted. Calculated pulmonary artery pressure is approximately 70 mmHg corresponding to severe pulmonary hypertension. Medical History PAD, saw vasc 12/01 Surgical History Ureterosopy/stone extraction ( multiple times) Surgical History lithotripsy Surgical History Dorsal column stimulator (Dr. Roland) 09/09 Surgical History Right and Left Leg broken bones 1978, 81 Surgical History Cysto right retrograde Pyelogram 03/24/13 Surgical History R hand pins Hospitalization History Kidney stones Hospitalization History surgery Goals Section No Information Health Concerns No Information MEDICAL EQUIPMENT No Information MENTAL STATUS No Information FUNCTIONAL STATUS No Information ASSESSMENTS Encounter Date Diagnosis Assessment Notes Treatment Notes Treatm ent Clinical Notes May, Migraine with aura and with status migrainosus, not intractable (ICD-10 - G43.101) May, Low back pain (ICD-10 - M54.5) PLAN OF TREATMENT Medication Medication Name Sig Start Date Stop Date Imitrex 100 MG 1 tablet as needed prn heada rigo Orally Daily; may repeat 2 hours later x 1 for 21 Amitriptyline HCl 100 MG 1 tablet Orally Once a day for 30 Flovent Diskus 100 MCG/BLIST 1 puff Inhalation Twice a day for 3 0 Days buPROPion HCl ER (SR) 100 MG 1 tablet in the morning O rally Once a day for 30 day(s) Nov, Gabapentin 800 MG TAKE ONE TABLET BY MOUTH THREE TIMES A DAY for 30 SUMAtriptan Succinate 100 MG TAKE 1 TABLET BY MOUTH NEEDED FOR HEADACHE MAY REPEAT IN 2 HR X 1 IF NEED for 21 Gabapentin 800 MG 1 tablet Orally Three times a day for 30 days Mar, ProAir HFA 108 (90 Base) MCG/ACT 1 puff as needed Inha lation every 4 hrs as needed for shortness of breath for 30 Days Atorvastatin Calcium 80 MG 1 tablet Orally Once a day for 30 day(s) Nov, Spiriva Respimat 2.5 MCG/ACT 2 puffs Inhalation Once a day for 3 0 Days Next Appt Details Provider Name:Lorie Zamudio, 2021-06 02:45:00 PM, [address], , [place], [address], Insurance Providers Payer Name Payer Address Payer Phone Insured Name Patient Relati onship to Insured Coverage Start Date Coverage End Date JANEL PEREZ [address] [address] [facility] [address] ADRIAN TAYLOR self
--- OUTSIDE RECORDS SUMMARY | 2021-07-08 17:26 | CCD ---
Author Author [facility] [employer] Organization [facility] [employer] [facility] Address Unknown Phone Unavailable Care Team Providers Care Building Engineer Name Role Phone Lorie Zamudio Unavailable PROBLEMS Type Condition ICD9-CM Code RWT38-DF Code Onset Dates Condition S tatus W/U Status Risk SNOMED Code Notes Problem Insomnia due to medical condition G47.01 Active confirmed [id number] Problem Acute right-sided low back pain with right-sided sciatica M54.41 Active confirmed 850417821 Problem Cigarette nicotine dependence without complication F17.210 Active confirmed 38160855 Problem DDD (degenerative disc disease), lumbar M51.36 Active confirmed 08269344 Problem Other chronic pain G89.29 Active confirmed 8 3854158 Problem Complex regional pain syndrome type 1 of left lower ex tremity G90.522 Active confirmed 273531134235405 As above, we are increasing the gabapentin dose Problem Pain in left knee M25.562 Active confirmed 3 8525287 Adrian will continue his current care with the orthopedic group and I will try to coordinate care as needed between the specialists Problem Low back pain M54.5 Active confirmed 893390 009 We have increased his gabapentin to [...] get some muscle relaxers for that Problem PAD (peripheral artery disease) I73.9 Active confi rmed 385007941 Problem Medicare annual wellness visit, subsequent Z00.00 Active confirmed 495149447 Problem Claudication of both lower extremities I73.9 A ctive confirmed 74600329 Problem Pacemaker Z95.0 Active confirmed 635622011 Problem Chronic obstructive pulmonary disease, unspecified COPD ty pe J44.9 Active confirmed 91682862 Problem Migraine with aura and with status migrainosus, not intractable G43.101 Active confirmed 9037584 Problem Typical atrial flutter I48.3 Active confirmed 009276837 Problem Mixed hyperlipidemia E78.2 Active confirmed 727339450 Problem Suspected sleep apnea G47.30 Active confirmed 96590108 Problem Anxiety and depression F41.8 Active confirmed 795387611 Problem Mitral stenosis with insufficiency, rheumatic I05. 2 Active confirmed 745673 Problem Acquired hyperlipoproteinemia E78.5 Active confirm ed 2511210 Problem Kidney stones N20.0 Active confirmed 708538 07 Problem H/O mitral valve replacement with mechanical valve Z95.2 Active confirmed 93868344027223 ALLERGIES Allergen (clinical drug ingredient) Drug/Non Drug Allergy do cumented on EMR Reaction Allergy Type Onset Date Status Codeine Phosphate (For Allergies Use Only) Rash Drug Allergy Active varenicline Chantix([facility] Code:[address]-02) nightmares Drug Allergy Active ENCOUNTERS from 1968 to 2021-06-25 Encounter Location Date Provider Diagnosis [facility] [address] [place] [address] Jun, 2021 Lorie Wetterhahn Tachycardia R00.0 ; Typical atrial flutt er I48.3 ; Lower extremity edema R60.0 ; H/O mitral valve replacement with mechanical valve Z95.2 ; Pacemaker Z95.0 and Subcutaneous nodule R22.9 IMMUNIZATIONS Vaccine Route Administration Date Status Toradol [...] REASON FOR REFERRAL No Information VITAL SIGNS Weight 141.4 lbs Jun, Height 69 in Jun, BMI 20.88 kg/m2 Jun, Heart Rate 130 /min Jun, Respiratory Rate 18 /min Jun, Temperature 98.7 degrees Fahrenheit Jun, Oximetry 94 Jun, Blood pressure systolic 110 mm Hg Jun, Blood pressure diastolic 60 mm Hg Jun, MEDICATIONS Medication SIG (Take, Route, Frequency, Duration) Notes Start Da te End Date Status Benzonatate 100 MG 1 - 2 capsules as needed Ora lly Three times a day as needed for cough for 5 days Dec, Active buPROPion HCl ER (SR) 100 MG 1 tablet in the morning O rally Once a day for 30 day(s) Nov, Active SUMAtriptan Succinate 100 MG TAKE 1 TABLET BY MOUTH NEEDED FOR HEADACHE MAY REPEAT IN 2 HR X 1 IF NEED for 21 Active Atorvastatin Calcium 80 MG 1 tablet Orally Once a day for 30 day (s) Nov, Active Gabapentin 800 MG TAKE ONE TABLET BY MOUTH THREE TIMES A DAY for 30 Active Buprenorphine HCl-Naloxone HCl 8-2 MG 1 tablet under t he tongue and allow to dissolve Sublingual 1 tab 3times a day 1/2 tab at bedtime (suboxone, for pain, not addiction) Active Pro Comfort Spacer Adult - as directed Spacer for Vent jones J44.9 as directed for 30 days Dec, Active ProAir HFA 108 (90 Base) MCG/ACT 1 puff as needed Inha lation every 4 hrs as needed for shortness of breath for 30 Days Active Warfarin Sodium 1 MG 1 tablet Orally Once a day for 30 day(s) Active Flovent Diskus 100 MCG/BLIST 1 puff Inhalation Twice a day for 30 Day s Active Gabapentin 800 MG 1 tablet Orally Three times a day for 30 days Mar, Active Imitrex 100 MG 1 tablet as needed prn heada rigo Orally Daily; may repeat 2 hours later x 1 for 21 Active Metoprolol Tartrate 25 MG 1 tablet with food Orally Twice a day for 30 day(s) Jun, Active Amitriptyline HCl 100 MG 1 tablet Orally Once a day for 30 Active PROCEDURES from 1968 to 2021-06-25 Procedure Date Ordered Result Body Site ELECTROCARDIOGRAM, COMPLETE EKG 2021-06-19 N/A RESULTS Component Value Reference Range [facility] US SOFT TISSUE Reviewed date:06/20/2021 16:51:31 Interpretation: Performing Lab[facility] ,[facility] [id number] US Duplex, Ext LOWER Veins, Unilat Reviewed date:06/20/2021 14:58:33 Interpretation: Performing Lab:[facility],rep ct ivnm], ,[facility] [address] REASON FOR VISIT FOLLOW UP MEDICAL (GENERAL) HISTORY Type Description Date Medical [...] Dependence - now on Seboxone prescribed by Kacey Armas 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 Medical History Nicotine Dependence Medical History COPD - Spirometry 10/02: FE V1 = 2.08 - 79% PREDICTED/FVC = 4.74 RATIO = 63% Medical History ?PAD, saw vasc 12/01- workup did not show significant PAD - Claudication symptoms [id number] with MVR Medical History Echo 12/01: severe MR, at neo st moderate MS, EF 75%; Peak gradient was 22 and mean gradient 12 mmHg. Moderate tricuspid insufficiency is noted. Calculated pulmonary artery pressure is approximately 70 mmHg corresponding to severe pulmonary hypertension. Medical History s/p Mechanical Mitral Valve Replacement - [facility] 04/2021 - now on Chronic Coumadin Surgical History Ureterosopy/stone extraction ( multiple times) Surgical History lithotripsy Surgical History Dorsal column stimulator (Dr. Roland) 09/09 Surgical History Right and Left Leg broken bones Surgical History Cysto right retrograde Pyelogram 03/24/13 Surgical History R hand pins Surgical History cardiac pacemeker Surgical History Mitral Valve Replacement 04/2021 Hospitalization History Kidney stones Hospitalization History surgery Goals Section No Information Health Concerns No Information MEDICAL EQUIPMENT No Information MENTAL STATUS No Information FUNCTIONAL STATUS No Information ASSESSMENTS Encounter Date Diagnosis Assessment Notes Treatment Notes Treatm ent Clinical Notes Jun, Typical atrial flutter (ICD-10 - I48.3) New onset. Spoke rey Parish who recommends initiating Metoprolol 25 BID as long as he is not symptommatic. He denies SOB or CP or lightheadedness currently. His tachycardia was an incidental finding on exam. He is already on COumadin. Start BB. F/U with Cardiology Wednesday. Get labs. He is advised to go to ER if symptoms develop Jun, Tachycardia (ICD-10 - R00.0) Jun, Lower extremity edema (ICD-10 - R60.0) Jun, H/O mitral valve replacement with mechanical valve (ICD-10 - Z95.2) Jun, Pacemaker (ICD-10 - Z95.0) Jun, Subcutaneous nodule (ICD-10 - R22.9) PLAN OF TREATMENT Medication Medication Name Sig Start Date Stop Date Metoprolol Tartrate 25 MG 1 tablet with food Orally Twice a day for 30 day(s) Jun, Treatment Notes Assessment Notes Clinical Notes Typical atrial flutter New onset. Spoke rey Parish who recommends initiating Metoprolol 25 BID as long as he is not symptommatic. He denies SOB or CP or lightheadedness currently. His tachycardia was an incidental finding on exam. He is already on COumadin. Start BB. F/U with Cardiology Wednesday. Get labs. He is advised to go to ER if symptoms develop Future Test Test Name Order Date CBC with Differential [id number] Comprehensive Metabolic Profile (CMP) [id number] FREE T4 & TSH PANEL [id number] PT-INR [id number] Next Appt Details prn Reason: Provider Name:Jennifer Buck, 2021-06-13 4 03:00:00 PM, [address] [place] [address], , [place], [address], Insurance Providers Payer Name Payer Address Payer Phone Insured Name Patient Relati onship to Insured Coverage Start Date Coverage End Date [employer]OTT[employer] ANA [address] [address] [facility] [id number] ADRIAN TAYLOR self
--- OUTSIDE RECORDS SUMMARY | 2021-07-08 17:26 | CCD ---
Author Author [facility] Organization [facility] Address Unknown Phone Unavailable Care Team Providers Care Monogram Machine Operator Name Role Phone Lorie Zamudio Unavailable PROBLEMS Type Condition ICD9-CM Code [id number] Code Onset Dates Condition S tatus W/U Status Risk SNOMED Code Notes Problem Migraine with aura and with status migrainosus, not intractable G43.101 Active confirmed 8837097 Problem Suspected sleep apnea G47.30 Active confirmed 70667357 Problem Acute right-sided low back pain with right-sided sciatica M54.41 Active confirmed 645742135 Problem Anxiety and depression F41.8 Active confirmed 361583658 Problem DDD (degenerative disc disease), lumbar M51.36 Active confirmed 28310731 Problem Insomnia due to medical condition G47.01 Active confirmed 61338897558479 Problem Complex regional pain syndrome type 1 of left lower ex tremity G90.522 Active confirmed [id number] As above, we are increasing the gabapentin dose Problem Cigarette nicotine dependence without complication F17.210 Active confirmed 19759890 Problem Other chronic pain G89.29 Active confirmed 8 3176745 Problem Mixed hyperlipidemia E78.2 Active confirmed 688059164 Problem Chronic obstructive pulmonary disease, unspecified COPD ty pe J44.9 Active confirmed 07395858 Problem Acquired hyperlipoproteinemia E78.5 Active confirm ed 4601385 Problem Pain in left knee M25.562 Active confirmed 3 2937818 Adrian will continue his current care with the orthopedic group and I will try to coordinate care as needed between the specialists Problem Kidney stones N20.0 Active confirmed 041017 07 Problem Low back pain M54.5 Active confirmed 539323 009 We have increased his gabapentin to [...] annual wellness visit, subsequent Z00.00 Active confirmed 796378453 Problem PAD (peripheral artery disease) I73.9 Active confi rmed 520964120 Problem Claudication of both lower extremities I73.9 A ctive confirmed 66030470 Problem Mitral stenosis with insufficiency, rheumatic I05. 2 Active confirmed 811942 ALLERGIES Allergen (clinical drug ingredient) Drug/Non Drug Allergy do cumented on EMR Reaction Allergy Type Onset Date Status Codeine Phosphate (For Allergies Use Only) Rash Drug Allergy Active varenicline Chantix([facility] Code:[address]-17) nightmares Drug Allergy Active ENCOUNTERS from 1968 to 2021-05-22 Encounter Location Date Provider Diagnosis [facility] [address] [place] [address] May, Lorie Zamudio IMMUNIZATIONS Vaccine Route Administration Date Status Toradol [...] Notes Start Da te End Date Status Meloxicam 15 MG 1 tablet Orally Once a day Not-Taking SUMAtriptan Succinate 100 MG TAKE 1 TABLET BY MOUTH NEEDED FOR HEADACHE MAY REPEAT IN 2 HR X 1 IF NEED for 21 Active Flomax 0.4 MG 1 capsule Orally Once a day for 30 day(s) May, Not-Taking buPROPion HCl ER (SR) 100 MG 1 tablet in the morning O rally Once a day for 30 day(s) Nov, Active Buprenorphine HCl-Naloxone HCl 8-2 MG 1 tablet under t he tongue and allow to dissolve Sublingual 1 tab 3times a day 1/2 tab at bedtime (suboxone, for pain, not addiction) Active Flovent HFA 110 MCG/ACT 1 puff Inhalation Twice a day for 30 day s Oct, Not-Taking Imitrex 100 MG 1 tablet as needed prn heada rigo Orally Daily; may repeat 2 hours later x 1 for 21 Active Pro Comfort Spacer Adult - as directed Spacer for Vent jones J44.9 as directed for 30 days Dec, Active Gabapentin 800 MG 1 tablet Orally Three times a day for 30 days Mar, Active ProAir HFA 108 (90 Base) MCG/ACT 1 puff as needed Inha lation every 4 hrs as needed for shortness of breath for 30 Days Active Flovent Diskus 100 MCG/BLIST 1 puff Inhalation Twice a day for 30 Day s Active Benzonatate 100 MG 1 - 2 capsules as needed Ora lly Three times a day as needed for cough for 5 days Dec, Active Aspirin 81 MG 1 tablet Orally Once a day for 30 day(s) Oct, Active Amoxicillin 875 MG 1 tablet Orally every 12 hrs for 10 day(s) Dec, Not-Taking Spiriva Respimat 2.5 MCG/ACT 2 puffs Inhalation Once a day for 30 Day s Active Amitriptyline HCl 100 MG 1 tablet Orally Once a day for 30 Active Incruse Ellipta 62.5 MCG/INH 1 puff Inhalation Once a day for 30 Days Sep, Not-Taking Atorvastatin Calcium 80 MG 1 tablet Orally Once a day for 30 day (s) Nov, Active PROCEDURES No Information RESULTS No Results REASON FOR VISIT requesting nurse call back MEDICAL (GENERAL) HISTORY Type Description Date Medical [...] - now on Seboxone prescribed by [facility] Dr. 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 - Followed by Neurosurgery in [place] ([facility]) - Had Dorsal Column Stimulator - [...] No Information FUNCTIONAL STATUS No Information ASSESSMENTS No Information PLAN OF TREATMENT Medication Medication Name Sig Start Date Stop Date Gabapentin 800 MG 1 tablet Orally Three times a day for 30 days Mar, Amitriptyline HCl 100 MG 1 tablet Orally Once a day for 30 buPROPion HCl ER (SR) 100 MG 1 tablet in the morning O rally Once a day for 30 day(s) Nov, Imitrex 100 MG 1 tablet as needed prn heada rigo Orally Daily; may repeat 2 hours later x 1 for 21 SUMAtriptan Succinate 100 MG TAKE 1 TABLET BY MOUTH NEEDED FOR HEADACHE MAY REPEAT IN 2 HR X 1 IF NEED for 21 ProAir HFA 108 (90 Base) MCG/ACT 1 puff as needed Inha lation every 4 hrs as needed for shortness of breath for 30 Days Flovent Diskus 100 MCG/BLIST 1 puff Inhalation Twice a day for 3 0 Days Atorvastatin Calcium 80 MG 1 tablet Orally Once a day for 30 day(s) Nov, Spiriva Respimat 2.5 MCG/ACT 2 puffs Inhalation Once a day for 3 0 Days Next Appt Details Provider Name:Lorie Zamudio, 2021-05 11:30:00 AM, [address] [address], , [place], [address], Insurance Providers Payer Name Payer Address Payer Phone Insured Name Patient Relati onship to Insured Coverage Start Date Coverage End Date [employer] [address] [address] [facility] [address] ADRIAN TAYLOR self
--- OUTSIDE RECORDS SUMMARY | 2021-07-08 17:26 | CCD ---
Author Author [facility] Organization [facility] Address Unknown Phone Unavailable Care Team Providers Care Sap Bobj Developer Name Role Phone Lorie Zamudio Unavailable PROBLEMS Type Condition ICD9-CM Code IOG21-OF Code Onset Dates Condition S tatus W/U Status Risk SNOMED Code Notes Problem Insomnia due to medical condition G47.01 Active confirmed [id number] Problem Acute right-sided low back pain with right-sided sciatica M54.41 Active confirmed 398610694 Problem Cigarette nicotine dependence without complication F17.210 Active confirmed 00067196 Problem DDD (degenerative disc disease), lumbar M51.36 Active confirmed 11708978 Problem Other chronic pain G89.29 Active confirmed 8 8826032 Problem Complex regional pain syndrome type 1 of left lower ex tremity G90.522 Active confirmed [id number] We will rest art hydrocodone/APAP and immediate release oxycodone and see if that combination helps Adrian when he runs out of the buprenorphine Problem Pain in left knee M25.562 Active confirmed 3 2752457 Adrian will continue his current care with the orthopedic group and I will try to coordinate care as needed between the specialists Problem Low back pain M54.5 Active confirmed 053580 009 We have increased his gabapentin to [...] (peripheral artery disease) I73.9 Active confi rmed 445347215 Problem Medicare annual wellness visit, subsequent Z00.00 Active confirmed 003464168 Problem Claudication of both lower extremities I73.9 A ctive confirmed 78393126 Problem Pacemaker Z95.0 Active confirmed 393173306 Problem Chronic obstructive pulmonary disease, unspecified COPD ty pe J44.9 Active confirmed 72980804 Problem Migraine with aura and with status migrainosus, not intractable G43.101 Active confirmed 4428858 Problem Typical atrial flutter I48.3 Active confirmed 723641102 Problem Mixed hyperlipidemia E78.2 Active confirmed 837053641 Problem Suspected sleep apnea G47.30 Active confirmed 70865220 Problem Anxiety and depression F41.8 Active confirmed 819266567 Problem Mitral stenosis with insufficiency, rheumatic I05. 2 Active confirmed 373406 Problem Acquired hyperlipoproteinemia E78.5 Active confirm ed 1198876 Problem Kidney stones N20.0 Active confirmed 135943 07 Problem H/O mitral valve replacement with mechanical valve Z95.2 Active confirmed 64366136493156 ALLERGIES Allergen (clinical drug ingredient) Drug/Non Drug Allergy do cumented on EMR Reaction Allergy Type Onset Date Status Codeine Phosphate (For Allergies Use Only) Rash Drug Allergy Active varenicline Chantix nightmares Drug Allergy Active ENCOUNTERS from 1968 to 2021-07-03 Encounter Location Date Provider Diagnosis [place] [id number] [place] [address] Jun, 2021 Lorie Zamudio IMMUNIZATIONS Vaccine Route Administration Date [...] Notes Start Da te End Date Status Warfarin Sodium 1 MG 1 tablet Orally Once a day for 30 day(s) Active oxyCODONE HCl 15 MG 1 tablet Orally Twice a day as needed, mdd=2 for 30 Days Jun, Active Atorvastatin Calcium 80 MG 1 tablet Orally Once a day for 30 day (s) Nov, Active Gabapentin 800 MG 1 tablet Orally 3 times a day Active buPROPion HCl ER (SR) 100 MG 1 tablet in the morning O rally Once a day for 30 day(s) Nov, Active Buprenorphine HCl-Naloxone HCl 8-2 MG 1 tablet under t he tongue and allow to dissolve Sublingual 4 times daily (suboxone, for pain, not addiction) Active Pro Comfort Spacer Adult - as directed Spacer for Vent jones J44.9 as directed for 30 days Dec, Active Benzonatate 100 MG 1 - 2 capsules as needed Ora lly Three times a day as needed for cough for 5 days Dec, Active Flovent Diskus 100 MCG/BLIST 1 puff Inhalation Twice a day for 30 Day s Active Metoprolol Tartrate 25 MG 1 tablet with food Orally Twice a day for 30 day(s) Jun, Active ProAir HFA 108 (90 Base) MCG/ACT 1 puff as needed Inha lation every 4 hrs as needed for shortness of breath for 30 Days Active Amitriptyline HCl 100 MG 1 tablet Orally Once a day for 30 Active Buprenorphine 20 MCG/HR 1 patch to skin Transdermal weekly Active HYDROcodone-Acetaminophen 10-325 MG 1 tablet as needed Orally 3 times a day, mdd=3 for 30 Days Jun, Active Imitrex 100 MG 1 tablet as needed prn heada rigo Orally Daily; may repeat 2 hours later x 1 for 21 Active PROCEDURES No Information RESULTS No Results REASON FOR VISIT US results MEDICAL (GENERAL) HISTORY Type Description Date Medical [...] 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 Medical History Nicotine Dependence Medical History COPD - Spirometry 10/02: FE V1 = 2.08 - 79% PREDICTED/FVC = 4.74 RATIO = 63% Medical History ?PAD, saw vasc 12/01- workup did not show significant PAD - Claudication symptoms [id number] with MVR Medical History Echo 12/01: severe MR, at neo st moderate MS, EF 75%; Peak gradient was 22 and mean gradient 12 mmHg. Moderate tricuspid insufficiency is noted. Calculated pulmonary artery pressure is approximately 70 mmHg corresponding to severe pulmonary hypertension. Medical History s/p Mechanical Mitral Valve Replacement - [facility] 04/2021 - now on Chronic Coumadin [...] Medication Name Sig Start Date Stop Date oxyCODONE HCl 15 MG 1 tablet Orally Twice a day as needed, m dd=2 for 30 Days Jun, HYDROcodone-Acetaminophen 10-325 MG 1 tablet as needed Orally 3 times a day, mdd=3 for 30 Days Jun, Next Appt Details Provider Name:Jennifer Buck, 2021-07-14 1 03:00:00 PM, [address] [facility], , [place], [address], Insurance Providers Payer Name Payer Address Payer Phone Insured Name Patient Relati onship to Insured Coverage Start Date Coverage End Date [facility] [address] [address] ADRIAN MONTES self
--- OUTSIDE RECORDS SUMMARY | 2021-07-08 17:26 | CCD ---
Author Author [facility] Organization [facility] Address Unknown Phone Unavailable Care Team Providers Care Scientific Manager Name Role Phone Jennifer Buck Unavailable PROBLEMS Type Condition ICD9-CM Code [id number] Code Onset Dates Condition S tatus W/U Status Risk SNOMED Code Notes Problem Insomnia due to medical condition G47.01 Active confirmed [id number] Problem Acute right-sided low back pain with right-sided sciatica M54.41 Active confirmed 153129872 Problem Cigarette nicotine dependence without complication F17.210 Active confirmed 27775818 Problem DDD (degenerative disc disease), lumbar M51.36 Active confirmed 76582985 Problem Other chronic pain G89.29 Active confirmed 8 9731153 Problem Complex regional pain syndrome type 1 of left lower ex tremity G90.522 Active confirmed 845059032332897 We will rest art hydrocodone/APAP and immediate release oxycodone and see if that combination helps Adrian when he runs out of the buprenorphine Problem Pain in left knee M25.562 Active confirmed 3 1313450 Adrian will continue his current care with the orthopedic group and I will try to coordinate care as needed between the specialists Problem Low back pain M54.5 Active confirmed 720832 009 We have increased his gabapentin to [...] (peripheral artery disease) I73.9 Active confi rmed 107632649 Problem Medicare annual wellness visit, subsequent Z00.00 Active confirmed 740862271 Problem Claudication of both lower extremities I73.9 A ctive confirmed 95163633 Problem Pacemaker Z95.0 Active confirmed 281994524 Problem Chronic obstructive pulmonary disease, unspecified COPD ty pe J44.9 Active confirmed 42682187 Problem Migraine with aura and with status migrainosus, not intractable G43.101 Active confirmed 7899916 Problem Typical atrial flutter I48.3 Active confirmed 384020472 Problem Mixed hyperlipidemia E78.2 Active confirmed 410463063 Problem Suspected sleep apnea G47.30 Active confirmed 89019286 Problem Anxiety and depression F41.8 Active confirmed 676803703 Problem Mitral stenosis with insufficiency, rheumatic I05. 2 Active confirmed 317270 Problem Acquired hyperlipoproteinemia E78.5 Active confirm ed 0140330 Problem Kidney stones N20.0 Active confirmed 776305 07 Problem H/O mitral valve replacement with mechanical valve Z95.2 Active confirmed 95050441494178 ALLERGIES Allergen (clinical drug ingredient) Drug/Non Drug Allergy do cumented on EMR Reaction Allergy Type Onset Date Status Codeine Phosphate (For Allergies Use Only) Rash Drug Allergy Active varenicline Chantix([facility] Code:[address]-92) nightmares Drug Allergy Active ENCOUNTERS from 1968 to 2021-06-30 Encounter Location Date Provider Diagnosis [place] [address] [facility] [phone] [place] [address] 14 Jun, 2021 Jennifer Heber Pain in left knee M25.562 ; Complex regional pain syndrome type 1 of left lower extremity G90.522 ; Other chronic pain G89.29 and Low back pain M54.5 IMMUNIZATIONS Vaccine [...] FOR REFERRAL No Information VITAL SIGNS Weight 138.0 lbs Jun, Height 69 in Jun, BMI 20.38 kg/m2 Jun, Heart Rate 117 /min Jun, Respiratory Rate 18 /min Jun, Temperature 98.0 degrees Fahrenheit Jun, Oximetry 96% Jun, Blood pressure systolic 114 mm Hg Jun, Blood pressure diastolic 64 mm Hg Jun, MEDICATIONS Medication SIG (Take, [...] Information RESULTS No Results REASON FOR VISIT check-up Comp, I-Stop #[id number], last filled 06/04/2021 MEDICAL (GENERAL) HISTORY Type Description Date Medical [...] 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 Medical History Nicotine Dependence Medical History COPD - Spirometry 10/02: FE V1 = 2.08 - 79% PREDICTED/FVC = 4.74 RATIO = 63% Medical History ?PAD, saw vasc 12/01- workup did not show significant PAD - Claudication symptoms [id number] with MVR Medical History Echo 12/01: severe MR, at neo st moderate MS, EF 75%; Peak gradient was 22 and mean gradient 12 mmHg. Moderate tricuspid insufficiency is noted. Calculated pulmonary artery pressure is approximately 70 mmHg corresponding to severe pulmonary hypertension. Medical History s/p Mechanical Mitral Valve Replacement - [facility] 04/2021 - now on Chronic Coumadin Surgical [...] Treatment Notes Treatm ent Clinical Notes Jun, Pain in left knee (ICD-10 - M25.562) Jun, Complex regional pain syndro me type 1 of left lower extremity (ICD- 10 - G90.522) We will restart hydrocodone/APAP and imm ediate release oxycodone and see if that combination helps Adrian when he runs out of the buprenorphine This report was requested by: Jennifer Buck | Reference #: [id number], dispensed buprenorphine film #112 on 06/04/2021 (28-day supply). Dispensed Butrans patch #4 (28-day supply) on 06/04/2021. Both prescribed by Dr. Armas Jun, Other chronic pain (ICD-10 - G89.29) Jun, Low back pain (ICD-10 - M54.5) PLAN OF TREATMENT Medication Medication Name Sig Start Date Stop Date oxyCODONE HCl 15 MG 1 tablet Orally Twice a day as needed, m dd=2 for 30 Days Jun, HYDROcodone-Acetaminophen 10-325 MG 1 tablet as needed Orally 3 times a day, mdd=3 for 30 Days Jun, Treatment Notes Assessment Notes Clinical Notes Complex regional pain syndrome type 1 of left lower extremit y This report was requested by: Jennifer Buck | Reference #: [id number], dispensed buprenorphine film #112 on 06/04/2021 (28-day supply). Dispensed Butrans patch #4 (28-day supply) on 06/04/2021. Both prescribed by Dr. Armas Next Appt Details 4 Weeks, 60 min Reason:w/c - CRPS Provider Name:Jennifer Buck, 1-11-1 1 03:00:00 PM, [address] [facility], , [place], [address], Follow Up:4 Weeks, 60 minw/c - CRPS Insurance Providers Payer Name Payer Address Payer Phone Insured Name Patient Relati onship to Insured Coverage Start Date Coverage End Date [facility] [employer] [address] [phone] ADRIAN MONTES self"
--- OUTSIDE RECORDS SUMMARY | 2021-07-08 17:26 | CCD | Continuity of Care Document ---
Author Author E Business Manager, Adrian Lee Organization Unknown Address Unknown Phone Unavailable Care Team Providers Care Belt Polisher Name Role Phone Rommel Parker MD, Hay Cohen Unavailable Jeovanny Corrigan MD Unavailable Problems No Problem Information Available Allergies and Adverse Reactions No Allergy Information Available Medications No Medication Information Available Social History No Social History Information Available Tobacco smoking consumption unknown Male Results No Known Results No Result Information Available Vital Signs No Vital Observation Information Available Advance Directives HIPAA - Patient specified Unknown. Payers [employer] Number: [id number] [address] [address] [place] [id number] tel: Adrian Andrews [address] [address] [place] tel:
--- OUTSIDE RECORDS SUMMARY | 2021-07-08 17:28 | CCD ---
Author Author [facility] Organization [facility] Address Unknown Phone Unavailable Care Team Providers Care Block Handler Name Role Phone Atwater, Chandler Unavailable Unavailable Atwater, Chandler Unavailable Unavailable Atwater, Chandler Unavailable Unavailable Atwater, Chandler Unavailable Unavailable Atwater, Chandler Unavailable Unavailable Atwater, Chandler Unavailable Unavailable Atwater, Chandler Unavailable Unavailable Atwater, Chandler Unavailable Unavailable Atwater, Chandler Unavailable Unavailable Atwater, Chandler Unavailable Unavailable Atwater, Chandler Unavailable Unavailable Atwater, Chandler Unavailable Unavailable Atwater, Chandler Unavailable Unavailable Atwater, Chandler Unavailable Unavailable Atwater, Chandler Unavailable Unavailable Atwater, Chandler Unavailable Unavailable Atwater, Chandler Unavailable Unavailable Atwater, Chandler Unavailable Unavailable Atwater, Chandler Unavailable Unavailable Atwater, Chandler Unavailable Unavailable Atwater, Chandler Unavailable Unavailable Atwater, Chandler Unavailable Unavailable Atwater, Chandler Unavailable Unavailable Atwater, Chandler Unavailable Unavailable Atwater, Chandler Unavailable Unavailable Atwater, Chandler Unavailable Unavailable Atwater, Chandler Unavailable Unavailable Atwater, Chandler Unavailable Unavailable Atwater, Chandler Unavailable Unavailable Atwater, Chandler Unavailable Unavailable Atwater, Chandler Unavailable Unavailable Atwater, Chandler Unavailable Unavailable Atwater, Chandler Unavailable Unavailable Atwater, Chandler Unavailable Unavailable Atwater, Chandler Unavailable Unavailable Atwater, Chandler Unavailable Unavailable Atwater, Chandler Unavailable Unavailable Atwater, Chandler Unavailable Unavailable Atwater, Chandler Unavailable Unavailable Atwater, Chandler Unavailable Unavailable Atwater, Chandler Unavailable Unavailable Atwater, Chandler Unavailable Unavailable Atwater, Chandler Unavailable Unavailable Atwater, Chandler Unavailable Unavailable Atwater, Chandler Unavailable Unavailable Atwater, Chandler Unavailable Unavailable Atwater, Chandler Unavailable Unavailable Atwater, Chandler Unavailable Unavailable Atwater, Chandler Unavailable Unavailable Atwater, Chandler Unavailable Unavailable Atwater, Chandler Unavailable Unavailable Atwater, Chandler Unavailable Unavailable Atwater, Chandler Unavailable Unavailable Atwater, Chandler Unavailable Unavailable Atwater, Chandler Unavailable Unavailable Atwater, Chandler Unavailable Unavailable Atwater, Chandler Unavailable Unavailable Atwater, Chandler Unavailable Unavailable Atwater, Chandler Unavailable Unavailable Atwater, Chandler Unavailable Unavailable Atwater, Chandler Unavailable Unavailable LATOYA HOUSE MD Unavailable Unavailable LATOYA HOUSE MD Unavailable Unavailable LATOYA HOUSE MD Unavailable Unavailable LATOYA HOUSE MD Unavailable Unavailable LATOYA HOUSE MD Unavailable Unavailable LATOYA HOUSE MD Unavailable Unavailable LATOYA HOUSE MD Unavailable Unavailable LATOYA HOUSE MD Unavailable Unavailable LATOYA HOUSE MD Unavailable Unavailable LATOYA HOUSE MD Unavailable Unavailable LATOYA HOUSE MD Unavailable Unavailable LATOYA HOUSE MD Unavailable Unavailable LATOYA HOUSE MD Unavailable Unavailable LATOYA HOUSE MD Unavailable Unavailable ALTOYA HOUSE MD Unavailable Unavailable LATOYA HOUSE MD Unavailable Unavailable LATOYA HOUSE MD Unavailable Unavailable LATOYA HOUSE MD Unavailable Unavailable LATOYA HOUSE MD Unavailable Unavailable LATOYA HOUSE MD Unavailable Unavailable LATOYA HOUSE MD Unavailable Unavailable LATOYA HOUSE MD Unavailable Unavailable LATOYA HOUSE MD Unavailable Unavailable LATOYA HOUSE MD Unavailable Unavailable LATOYA HOUSE MD Unavailable Unavailable LATOYA HOUSE MD Unavailable Unavailable LATOYA OHUSE MD Unavailable Unavailable LATOYA HOUSE MD Unavailable Unavailable LATOYA HOUSE MD Unavailable Unavailable LATOYA HOUSE MD Unavailable Unavailable Detor, M Keily DERMATOLOGY PROCEDURAL PHYSICIAN Unavailable Unavailable Detor, M Keily DERMATOLOGY PROCEDURAL PHYSICIAN Unavailable Unavailable Detor, M Keily DERMATOLOGY PROCEDURAL PHYSICIAN Unavailable Unavailable Detor, M Keily DERMATOLOGY PROCEDURAL PHYSICIAN Unavailable Unavailable Detor, M Keily DERMATOLOGY PROCEDURAL PHYSICIAN Unavailable Unavailable Detor, M Keily DERMATOLOGY PROCEDURAL PHYSICIAN Unavailable Unavailable Detor, M Keily DERMATOLOGY PROCEDURAL PHYSICIAN Unavailable Unavailable Detor, M Keily DERMATOLOGY PROCEDURAL PHYSICIAN Unavailable Unavailable Detor, M Keily DERMATOLOGY PROCEDURAL PHYSICIAN Unavailable Unavailable Detor, M Keily DERMATOLOGY PROCEDURAL PHYSICIAN Unavailable Unavailable Detor, M Keily DERMATOLOGY PROCEDURAL PHYSICIAN Unavailable Unavailable Detor, M Keily DERMATOLOGY PROCEDURAL PHYSICIAN Unavailable Unavailable Detor, M Keily DERMATOLOGY PROCEDURAL PHYSICIAN Unavailable Unavailable Detor, M Keily DERMATOLOGY PROCEDURAL PHYSICIAN Unavailable Unavailable Detor, M Keily DERMATOLOGY PROCEDURAL PHYSICIAN Unavailable Unavailable Detor, M Keily DERMATOLOGY PROCEDURAL PHYSICIAN Unavailable Unavailable Detor, M Keily DERMATOLOGY PROCEDURAL PHYSICIAN Unavailable Unavailable Detor, M Keily DERMATOLOGY PROCEDURAL PHYSICIAN Unavailable Unavailable Detor, M Keily DERMATOLOGY PROCEDURAL PHYSICIAN Unavailable Unavailable Detor, M Keily DERMATOLOGY PROCEDURAL PHYSICIAN Unavailable Unavailable Detor, M Keily DERMATOLOGY PROCEDURAL PHYSICIAN Unavailable Unavailable Detor, M Keily DERMATOLOGY PROCEDURAL PHYSICIAN Unavailable Unavailable Detor, M Keily DERMATOLOGY PROCEDURAL PHYSICIAN Unavailable Unavailable Detor, M Keily DERMATOLOGY PROCEDURAL PHYSICIAN Unavailable Unavailable Detor, M Keily DERMATOLOGY PROCEDURAL PHYSICIAN Unavailable Unavailable Detor, M Keily DERMATOLOGY PROCEDURAL PHYSICIAN Unavailable Unavailable Detor, M Keily DERMATOLOGY PROCEDURAL PHYSICIAN Unavailable Unavailable Detor, M Keily DERMATOLOGY PROCEDURAL PHYSICIAN Unavailable Unavailable Detor, M Keily DERMATOLOGY PROCEDURAL PHYSICIAN Unavailable Unavailable Detor, M Keily DERMATOLOGY PROCEDURAL PHYSICIAN Unavailable Unavailable Detor, M Keily DERMATOLOGY PROCEDURAL PHYSICIAN Unavailable Unavailable Detor, M Keily DERMATOLOGY PROCEDURAL PHYSICIAN Unavailable Unavailable Detor, M Keily DERMATOLOGY PROCEDURAL PHYSICIAN Unavailable Unavailable Detor, M Keily DERMATOLOGY PROCEDURAL PHYSICIAN Unavailable Unavailable Detor, M Keily DERMATOLOGY PROCEDURAL PHYSICIAN Unavailable Unavailable Detor, M Keily DERMATOLOGY PROCEDURAL PHYSICIAN Unavailable Unavailable Detor, M Keily DERMATOLOGY PROCEDURAL PHYSICIAN Unavailable Unavailable LUTZ, F FAITH Unavailable Unavailable Godwin, N Azalea PORK CUTLET MAKER Unavailable Unavailable Bruceton, N Azalea PORK CUTLET MAKER Unavailable Unavailable Godwin, N Azalea PORK CUTLET MAKER Unavailable Unavailable Bruceton, N Azalea PORK CUTLET MAKER Unavailable Unavailable Bruceton, N Azalea PORK CUTLET MAKER Unavailable Unavailable Bruceton, N Azalea PORK CUTLET MAKER Unavailable Unavailable Bruceton, N Azalea PORK CUTLET MAKER Unavailable Unavailable Bruceton, N Azalea PORK CUTLET MAKER Unavailable Unavailable Bruceton, N Azalea PORK CUTLET MAKER Unavailable Unavailable Bruceton, N Azalea PORK CUTLET MAKER Unavailable Unavailable Bruceton, N Azalea PORK CUTLET MAKER Unavailable Unavailable Godwin, N Azalea PORK CUTLET MAKER Unavailable Unavailable Bruceton, N Azalea PORK CUTLET MAKER Unavailable Unavailable Bruceton, N Azalea PORK CUTLET MAKER Unavailable Unavailable Bruceton, N Azalea PORK CUTLET MAKER Unavailable Unavailable Godwin, N Azalea PORK CUTLET MAKER Unavailable Unavailable Godwin, N Azalea PORK CUTLET MAKER Unavailable Unavailable Godwin, N Azalea PORK CUTLET MAKER Unavailable Unavailable Godwin, N Azalea PORK CUTLET MAKER Unavailable Unavailable Godwin, N Azalea PORK CUTLET MAKER Unavailable Unavailable Godwin, N Azalea PORK CUTLET MAKER Unavailable Unavailable Godwin, N Azaela PORK CUTLET MAKER Unavailable Unavailable Bruceton, N Azalea PORK CUTLET MAKER Unavailable Unavailable Bruceton, N Azalea PORK CUTLET MAKER Unavailable Unavailable Bruc[place], N Azalea PORK CUTLET MAKER Unavailable Unavailable Bruceton, N Azalea PORK CUTLET MAKER Unavailable Unavailable Godwin, N Azalea PORK CUTLET MAKER Unavailable Unavailable Godwin, N Azalea PORK CUTLET MAKER Unavailable Unavailable Godwin, N Azalea PORK CUTLET MAKER Unavailable Unavailable Godwin, N Azalea PORK CUTLET MAKER Unavailable Unavailable Godwin, N Azalea PORK CUTLET MAKER Unavailable Unavailable Godwin, N Azalea PORK CUTLET MAKER Unavailable Unavailable Godwin, N Azalea PORK CUTLET MAKER Unavailable Unavailable [place]ington, V JENNIFER PA-C Unavailable Unavailable Laurence, V JENNIFER PA-C Unavailable Unavailable [place], V JENNIFER PA-C Unavailable Unavailable Laurence, V JENNIFER PA-C Unavailable Unavailable Laurence, V JENNIFER PA-C Unavailable Unavailable Laurence, V JENNIFER PA-C Unavailable Unavailable [place], V JENNIFER PA-C Unavailable Unavailable Laurence, V JENNIFER PA-C Unavailable Unavailable [place], V JENNIFER PA-C Unavailable Unavailable Laurence, V JENNIFER PA-C Unavailable Unavailable [place], V JENNIFER PA-C Unavailable Unavailable Laurence, V JENNIFER PA-C Unavailable Unavailable [place], V JENNIFER PA-C Unavailable Unavailable Laurence, V JENNIFER PA-C Unavailable Unavailable Cooper, L Virginia RPA Unavailable Unavailable Cooper, L Virginia RPA Unavailable Unavailable Cooper, L Virginia RPA Unavailable Unavailable Cooper, L Virginia RPA Unavailable Unavailable Cooper, L [place] RPA Unavailable Unavailable Cooper, L Virginia RPA Unavailable Unavailable Cooper, L [place] RPA Unavailable Unavailable Cooper, L [place] RPA Unavailable Unavailable Cooper, L [place] RPA Unavailable Unavailable Cooper, L [place] RPA Unavailable Unavailable Cooper, L [place] RPA Unavailable Unavailable Cooper, L [place] RPA Unavailable Unavailable Cooper, L [place] RPA Unavailable Unavailable Cooper, L [place] RPA Unavailable Unavailable Cooper, L [place] RPA Unavailable Unavailable Cooper, L [place] RPA Unavailable Unavailable Cooper, L [place] RPA Unavailable Unavailable Cooper, L [place] RPA Unavailable Unavailable Cooper, L [place] RPA Unavailable Unavailable Cooper, L [place] RPA Unavailable Unavailable Cooper, L [place] RPA Unavailable Unavailable Cooper, L [place] RPA Unavailable Unavailable Cooper, L [place] RPA Unavailable Unavailable Cooper, L [place] RPA Unavailable Unavailable Cooper, L [place] RPA Unavailable Unavailable Cooper, L [place] RPA Unavailable Unavailable Cooper, L [place] RPA Unavailable Unavailable Cooper, L [place] RPA Unavailable Unavailable Cooper, L [place] RPA Unavailable Unavailable Cooper, L [place] RPA Unavailable Unavailable Cooper, L [place] RPA Unavailable Unavailable Cooper, L Virginia RPA Unavailable Unavailable Atwater, Chandler Unavailable Unavailable Atwater, Chandler Unavailable Unavailable Atwater, Chandler Unavailable Unavailable Atwater, Chandler Unavailable Unavailable Atwater, Chandler Unavailable Unavailable Atwater, Chandler Unavailable Unavailable Atwater, Chandler Unavailable Unavailable Atwater, Chandler Unavailable Unavailable Atwater, Chandler Unavailable Unavailable Atwater, Chandler Unavailable Unavailable Atwater, Chandler Unavailable Unavailable Atwater, Chandler Unavailable Unavailable Atwater, Chandler Unavailable Unavailable Atwater, Chandler Unavailable Unavailable Atwater, Chandler Unavailable Unavailable Atwater, Chandler Unavailable Unavailable Atwater, Chandler Unavailable Unavailable Atwater, Chandler Unavailable Unavailable Atwater, Chandler Unavailable Unavailable Atwater, Chandler Unavailable Unavailable Atwater, Chandler Unavailable Unavailable Atwater, Chandler Unavailable Unavailable Atwater, Chandler Unavailable Unavailable Atwater, Chandler Unavailable Unavailable Atwater, Chandler Unavailable Unavailable Atwater, Chandler Unavailable Unavailable Atwater, Chandler Unavailable Unavailable Atwater, Chandler Unavailable Unavailable Atwater, Chandler Unavailable Unavailable Atwater, Chandler Unavailable Unavailable Atwater, Chandler Unavailable Unavailable Atwater, Chandler Unavailable Unavailable Atwater, Chandler Unavailable Unavailable Atwater, Chandler Unavailable Unavailable Atwater, Chandler Unavailable Unavailable Atwater, Chandler Unavailable Unavailable Atwater, Chandler Unavailable Unavailable Atwater, Chandler Unavailable Unavailable Atwater, Chandler Unavailable Unavailable Atwater, Chandler Unavailable Unavailable Atwater, Chandler Unavailable Unavailable Atwater, Chandler Unavailable Unavailable Atwater, Chandler Unavailable Unavailable Atwater, Chandler Unavailable Unavailable Atwater, Chandler Unavailable Unavailable Atwater, Chandler Unavailable Unavailable Atwater, Chandler Unavailable Unavailable Atwater, Chandler Unavailable Unavailable Atwater, Chandler Unavailable Unavailable Atwater, Chandler Unavailable Unavailable Atwater, Chandler Unavailable Unavailable Atwater, Chandler Unavailable Unavailable Atwater, Chandler Unavailable Unavailable Atwater, Chandler Unavailable Unavailable Atwater, Chandler Unavailable Unavailable Atwater, Chandler Unavailable Unavailable Atwater, Chandler Unavailable Unavailable Atwater, Chandler Unavailable Unavailable Atwater, Chandler Unavailable Unavailable Atwater, Chandler Unavailable Unavailable Atwater, Chandler Unavailable Unavailable WetterhahnMauricio MD Unavailable Unavailable WetterhahnMauricio MD Unavailable Unavailable WetterhahnMauricio MD Unavailable Unavailable WetterhahnMauricio MD Unavailable Unavailable WetterhahnMauricio MD Unavailable Unavailable WetterhahnMauricio MD Unavailable Unavailable WetterhahnMauricio MD Unavailable Unavailable WetterhahnMauricio MD Unavailable Unavailable WetterhahnMauricio MD Unavailable Unavailable WetterhahnMauricio MD Unavailable Unavailable WetterhahnMauricio MD Unavailable Unavailable WetterhahnMauricio MD Unavailable Unavailable WetterhahnMauricio MD Unavailable Unavailable WetterhahnMauricio MD Unavailable Unavailable WetterhahnMauricio MD Unavailable Unavailable WetterhahnMauricio MD Unavailable Unavailable WetterhahnMauricio MD Unavailable Unavailable WetterhahnMauricio MD Unavailable Unavailable WetterhahnMauricio MD Unavailable Unavailable WetterhahnMauricio MD Unavailable Unavailable WetterhahnMauricio MD Unavailable Unavailable WetterhahnMauricio MD Unavailable Unavailable WetterhahnMauricio MD Unavailable Unavailable WetterhahnMauricio MD Unavailable Unavailable WetterhahnMauricio MD Unavailable Unavailable WetterhahnMauricio MD Unavailable Unavailable WetterhahnMauricio MD Unavailable Unavailable WetterhahnMauricio MD Unavailable Unavailable WetterhahnMauricio MD Unavailable Unavailable WetterhahnMauricio MD Unavailable Unavailable WetterhahnMauricio MD Unavailable Unavailable WetterhahnMauricio MD Unavailable Unavailable WetterhahnMauricio MD Unavailable Unavailable WetterhahnMauricio MD Unavailable Unavailable WetterhahnMauricio MD Unavailable Unavailable WetterhahnMauricio MD Unavailable Unavailable WetterhahnMauricio MD Unavailable Unavailable WetterhahnMauricio MD Unavailable Unavailable WetterhahnMauricio MD Unavailable Unavailable WetterhahnMauricio MD Unavailable Unavailable WetterhahnMauricio MD Unavailable Unavailable WetterhahnMauricio MD Unavailable Unavailable WetterhahnMauricio MD Unavailable Unavailable WetterhahnMauricio MD Unavailable Unavailable WetterhahnMauricio MD Unavailable Unavailable WetterhahnMauricio MD Unavailable Unavailable WetterhahnMauricio MD Unavailable Unavailable WetterhahnMauricio MD Unavailable Unavailable WetterhahnMauricio MD Unavailable Unavailable WetterhahnMauricio MD Unavailable Unavailable WetterhahnMauricio MD Unavailable Unavailable WetterhahnMauricio MD Unavailable Unavailable WetterhahnMauricio MD Unavailable Unavailable WetterhahnMauricio MD Unavailable Unavailable WetterhahnMauricio MD Unavailable Unavailable WetterhahnMauricio MD Unavailable Unavailable WetterhahnMauricio MD Unavailable Unavailable WetterhahnMauricio MD Unavailable Unavailable WetterhahnMauricio MD Unavailable Unavailable WetterhahnMauricio MD Unavailable Unavailable WetterhahnMauricio MD Unavailable Unavailable WetterhahnMauricio MD Unavailable Unavailable WetterhahnMauricio MD Unavailable Unavailable WetterhahnMauricio MD Unavailable Unavailable WetterhahnMauricio MD Unavailable Unavailable WetterhahnMauricio MD Unavailable Unavailable WetterhahnMauricio MD Unavailable Unavailable WetterhahnMauricio MD Unavailable Unavailable WetterhahnMauricio MD Unavailable Unavailable WetterhahnMauricio MD Unavailable Unavailable WetterhahnMauricio MD Unavailable Unavailable WetterhahnMauricio MD Unavailable Unavailable Carey MACEDO MD Unavailable Unavailable Carey MACEDO MD Unavailable Unavailable Carey MACEDO MD Unavailable Unavailable Carey MACEDO MD Unavailable Unavailable Toby Parish MD Unavailable Unavailable Toby Parish MD Unavailable Unavailable Toby Parish MD Unavailable Unavailable Toby Parish MD Unavailable Unavailable Toby Parish MD Unavailable Unavailable Toby Parish MD Unavailable Unavailable Toby Parish MD Unavailable Unavailable Toby Parish MD Unavailable Unavailable Toby Parish MD Unavailable Unavailable Toby Parish MD Unavailable Unavailable Toby Parish MD Unavailable Unavailable Toby Parish MD Unavailable Unavailable Toby Parish MD Unavailable Unavailable Toby Parish MD Unavailable Unavailable Toby Parish MD Unavailable Unavailable Toby Parish MD Unavailable Unavailable Toby Parish MD Unavailable Unavailable Toby Parish MD Unavailable Unavailable Toby Parish MD Unavailable Unavailable Toby Parish MD Unavailable Unavailable Toby Parish MD Unavailable Unavailable Toby Parish MD Unavailable Unavailable Toby Parish MD Unavailable Unavailable Toby Parish MD Unavailable Unavailable Toby Parish MD Unavailable Unavailable Toby Parish MD Unavailable Unavailable Toby Parish MD Unavailable Unavailable Toby Parish MD Unavailable Unavailable Toby Parish MD Unavailable Unavailable Toby Parish MD Unavailable Unavailable Toby Parish MD Unavailable Unavailable Toby Parish MD Unavailable Unavailable Toby Parish MD Unavailable Unavailable Toby Parish MD Unavailable Unavailable Toby Parish MD Unavailable Unavailable Toby Parish MD Unavailable Unavailable Toby Parish MD Unavailable Unavailable Toby Parish MD Unavailable Unavailable Toby Parish MD Unavailable Unavailable Toby Parish MD Unavailable Unavailable Toby Parish MD Unavailable Unavailable Toby Parish MD Unavailable Unavailable Toby Parish MD Unavailable Unavailable Toby Parish MD Unavailable Unavailable Toby Parish MD Unavailable Unavailable Toby Parish MD Unavailable Unavailable Toby Parish MD Unavailable Unavailable Toby Parish MD Unavailable Unavailable Toby Parish MD Unavailable Unavailable Toby Parish MD Unavailable Unavailable Toby Parish MD Unavailable Unavailable Toby Parish MD Unavailable Unavailable Toby Parish MD Unavailable Unavailable Toby Parish MD Unavailable Unavailable Toby Parish MD Unavailable Unavailable Toby Parish MD Unavailable Unavailable Toby Parish MD Unavailable Unavailable Toby Parish MD Unavailable Unavailable Re-disclosure Warning The records that you are about to access may contain information from federally-assisted alcohol or drug abuse programs. If such information is present, then the following federally mandated warning applies: This information has been disclosed to you from records protected by federal confidentiality rules (42 CFR part 2). The federal rules prohibit you from making any further disclosure of this information unless further disclosure is expressly permitted by the written consent of the person to whom it pertains or as otherwise permitted by 42 CFR part 2. A general authorization for the release of medical or other information is NOT sufficient for this purpose. The Federal rules restrict any use of the information to criminally investigate or prosecute any alcohol or drug abuse patient.The records that you are about to access may contain highly sensitive health information, the redisclosure of which is protected by Article 27-F of the [facility] Public Health law. If you continue you may have access to information: Regarding HIV / AIDS; Provided by facilities licensed or operated by the [facility] Office of Mental Health; or Provided by the [facility] Office for People With Developmental Disabilities. If such information is present, then the following [facility] mandated warning applies: This information has been disclosed to you from confidential records which are protected by state law. State law prohibits you from making any further disclosure of this information without the specific written consent of the person to whom it pertains, or as otherwise permitted by law. Any unauthorized further disclosure in violation of state law may result in a fine or assisted sentence or both. A general authorization for the release of medical or other information is NOT sufficient authorization for further disc losure. Allergies and Adverse Reactions Type Description Substance Reaction Status Data Source(s ) Propensity to adverse reactions CODEINE Codeine Rash Medium Ac tive [facility] Medium Encounters Encounter Providers Location Date Indications Data Source(s ) Out[place] [address] [facility] [address] 06/26/2021 12:00:00 AM EDT eCW1 ([facility]) Outpatient [email or web address]-[email or web address] 06/20/2021 01:01:19 PM EDT [facility] Unknown [address] [facility] [address] 06/20/2021 12:00:00 AM EDT eCW1 ([facility]) [place] [address] [facility] [address] 06/19/2021 12:00:00 AM EDT eCW1 ([facility]) Unknown [address] [facility] [address] 05/28/2021 12:00:00 AM EDT eCW1 ([facility]) BF-BF 05/21/2021 06:14:57 PM EDT [facility] Outpatient [email or web address] 05/21/2021 12:00:00 AM EDT [facility] Unknown [address] [facility] [address] 05/14/2021 12:00:00 AM EDT eCW1 ([facility]) Outpatient Referrer: Toby MOJICACT-SJP.SYR 04/14 11:34:18 AM EDT [facility] Outpatient Attender: Azalea LAMAR-SJP.KENNY 021 12:00:00 AM EDT - 04/28/2021 03:49:03 PM EDT [facility] Outpatient [email or web address] 04/28/2021 12:00:00 AM EDT [facility] Inpatient Admitter: Chandler CorriganReferrer: ROWAN Padilla MD [email or web address] 04/17/2021 07:21:51 AM EDT [facility] Inpatient Attender: Chandler CorriganAdmitter: Chandler Corrigan [id number] [id number] 04/17/2021 05:18:00 AM EDT - 04/23/2021 05:58:00 PM EDT [facility] Patient discharged. Outpatient Attender: Chandler CorriganReferrer: Chandler GARCIA -SJ.PL 04/14/2021 09:23:36 AM EDT - 04/14/2021 11:59:00 PM EDT [facility] Patient discharged. Outpatient Attender: Chandler CorriganReferrer: Chandler HARRIS -MOB.PAT 04/14/2021 08:39:44 AM EDT - 04/14/2021 10:06:57 AM EDT [facility] Outpatient Referrer: FAITH JA HARRIS-MOB.PAT 04/14/2021 08:25:17 AM EDT - 04/14/2021 08:25:24 AM EDT [facility] Outpatient Referrer: Keily MARTINEZ 04/08/2021 08:33:[address] [facility] Outpatient Attender: Chandler [email or web address].BAL 12:00:00 AM EDT - 04/07/2021 03:20:[facility] [address] [facility] [address] 03/04/2021 12:00:00 AM EDT eCW1 ([facility]) Outpatient RENEKENNY 02/07/2021 11:51:01 AM EDT [facility] Outpatient Attender: JENNIFER LAMAR-SJElvinKENNY 01:22:41 PM EDT - 02/06/2021 02:53:39 PM EDT [facility] Outpatient Attender: Virginia Shi/Edis/Kings/Robel fernandez 01/15/2021 01:00:00 PM EDT MEDENT ([facility], ) Outpatient Attender: JENNIFER LEMONSJErin.KENNY 11/2020 01:57:32 PM EDT - 01/13/2021 03:27:27 PM EDT [facility] Outpatient Attender: JNENIFER Kenferrer: Mercedes MOJICAKENNY-SJP.KENNY 01/06/2021 02:29:51 PM EDT - 01/06/2021 03:53:36 PM EDT [facility] Outpatient Attender: SUSAN HOUSE MDAdm itter: SUSAN HOUSE MDReferrer: Toby Parish MD [email or web address].CVAU 12/10/2020 09:18:00 AM EDT - 12/10/2020 04:58:00 PM EDT [facility] Patient discharged. Outpatient Attender: Toby Parish MD SJErin.KENNY-SJP.KENNY 11/12 12:00:00 AM EDT - 12/09/2020 11:50:14 AM EDT [facility] Outpatient [address] [address] 12/06/2020 12:00:00 AM EDT eCW1 ([facility]) Outpatient Attender: Virginia Shi/Edis/Kings/Robel fernandez 11/26/2020 01:45:00 PM EDT MEDENT ([facility] Unknown [address] [facility] [address] 11/08/2020 12:00:00 AM EST eCW1 ([facility]) Unknown [address] [facility] [address] 11/05/2020 12:00:00 AM EST eCW1 ([facility]) Outpatient [address] [facility] [address] 11/05/2020 12:00:00 AM EST eCW1 ([facility]) [place] [address] [facility] [place] [address] 11/04/2020 12:00:00 AM EST eCW1 ([facility]) Unknown [address] [facility] [address] 06/25/2020 12:00:00 AM EDT eCW1 ([facility]) Immunizations Vaccine Date Status Description Data Source(s) 207 12/18/2020 12:00:00 AM EDT completed <td I D="[id number]">Covid-19 (Moderna)</td><td>12/18/2020, 11/12/2020</td><td></td> [facility] COVID-19 VACCINE Moderna 12/18/2020 12:00:00 AM EDT completed NYSIIS Vaccine Series Complete: YESThis Data wa s Submitted to [facility] Via [employer]. 207 11/12/2020 12:00:00 AM EST completed <td I D="[id number]">Covid-19 (Moderna)</td><td>12/18/2020, 11/12/2020</td><td></td> [facility] COVID-19 VACCINE Moderna 11/12/2020 12:00:00 AM EST completed NYSIIS Vaccine Series Complete: NOThis Data was Submitted to [facility] Via [employer]. Medications Medication Brand Name Start Date Product Form Dose Route Admi nistrative Instructions Pharmacy Instructions Status Indications Reaction Description Data Source(s) Acetaminophen 325 MG / Hydrocodone Bitartrate 10 MG Or al Tablet 10-325 mg HYDROCODONE/ACETAMINOPHEN 06/26/2021 12:00:00 AM EDT tablet 90 TAKE ONE TABLET BY MOUTH THREE TIMES A DAY NEEDED MAXIMUM DAILY DOSE = 3 TAKE ONE TABLET BY MOUTH THREE TIMES A DAY NEEDED MAXIMUM DAILY DOSE = 3 SOLD: 06/26/2021 [facility] 15 mg 06/26/2021 12:00:00 AM EDT tablet 60 TAKE ONE TABLET BY MOUTH TWO TIMES A DAY NEEDED MAXIMUM DAILY DOSE = 2 TAKE ONE TABLET BY MOUTH TWO TIMES A DAY NEEDED MAXIMUM DAILY DOSE = 2 SOLD: 06/26/2021 [facility] Oxycodone Hydrochloride 15 MG Oral Tablet oxyCODONE HC l 15 MG oxyCODONE HCl 15 MG 06/26/2021 12:00:00 AM EDT 1.0 {tablet} activ e oxyCODONE HCl 15 MG eCW1 (Formerly [facility], 1928–1983) Acetaminophen 325 MG / Hydrocodone Robinson trate 10 MG Oral Tablet HYDROcodone- Acetaminophen 10-325 MG HYDROcodone-Acetaminophen 10-325 MG 06/26/2021 12:00:0 0 AM EDT 1.0 {tablet_as_needed} active HYDROcodone-Acetaminophen 10- 325 MG eCW1 (Formerly [facility], 1928–1983) Oxycodone Hydrochloride 15 MG Oral Tablet oxyCODONE HC l 15 MG oxyCODONE HCl 15 MG 06/26/2021 12:00:00 AM EDT 1.0 {tablet} activ e oxyCODONE HCl 15 MG eCW1 (Formerly [facility], 1928–1983) Acetaminophen 325 MG / Hydrocodone Robinson trate 10 MG Oral Tablet HYDROcodone- Acetaminophen 10-325 MG HYDROcodone-Acetaminophen 10-325 MG 06/26/2021 12:00:0 0 AM EDT 1.0 {tablet_as_needed} active HYDROcodone-Acetaminophen 10- 325 MG eCW1 (Formerly [facility], 1928–1983) 25 mg 06/20/2021 12:00:00 AM EDT tablet 60 TAKE ONE TABLET BY MOUTH TWICE A DAY TAKE ONE TABLET BY MOUTH TWICE A DAY SOLD: 06/24/2021 [facility] Metoprolol Tartrate 25 MG Oral Tablet Metoprolol Tartrate 25 MG 06/19/2021 12:00:00 AM EDT 1.0 {tablet_with_food} active Metoprolol Tartrate 25 MG eCW1 (Formerly [facility], 1928–1983) Metoprolol Tartrate 25 MG Oral Tablet Metoprolol Tartrate 25 MG 06/19/2021 12:00:00 AM EDT 1.0 {tablet_with_food} active Metoprolol Tartrate 25 MG eCW1 (Formerly [facility], 1928–1983) Metoprolol Tartrate 25 MG Oral Tablet Metoprolol Tartrate 25 MG 06/19/2021 12:00:00 AM EDT 1.0 {tablet_with_food} active Metoprolol Tartrate 25 MG eCW1 (Formerly [facility], [facility]–1983) 1 mg 06/13/2021 12:00:00 AM EDT tablet 60 TAKE ONE TABLET BY MOUTH EVERY DAY TAKE ONE TABLET BY MOUTH EVERY DAY SOLD: 06/14/2021 [facility] 20 mcg/hour 06/04/2021 12:00:00 AM EDT patch weekly 4 APPLY ONE PATCH TO SKIN ONCE WEEKLY, MAX OF 1 PATCH PER WEEK APPLY ONE PATCH TO SKIN ONCE WEEKLY, MAX OF 1 PATCH PER WEEK SOLD: 06/04/2021 [facility] 8-2 mg 06/04/2021 12:00:00 AM EDT film 112 DISSOLVE FOUR FILMS UNDER THE TONGUE EVERY ONCE DAILY, MAXIMUM DAILY DOSE = 4 FILMS DISSOLVE FOUR FILMS UNDER THE TONGUE EVERY ONCE DAILY, MAXIMUM DAILY DOSE = 4 FILMS SOLD: 06/04/2021 [facility] 100 mg 05/29/2021 12:00:00 AM EDT tablet 30 TAKE ONE TABLET BY MOUTH EVERY DAY TAKE ONE TABLET BY MOUTH EVERY DAY SOLD: 06/04/2021 [facility] gabapentin 800 MG Oral Tablet GABAPENTIN 05/26/2021 12:00:00 AM EDT ta blet 90 TAKE ONE TABLET BY MOUTH THREE TIMES A DAY TAKE ONE TABLET BY MOUTH THREE TIMES A DAY SOLD: 06/24/2021 [facility] gabapentin 800 MG Oral Tablet GABAPENTIN 05/26/2021 12:00:00 AM EDT ta blet 90 TAKE ONE TABLET BY MOUTH THREE TIMES A DAY TAKE ONE TABLET BY MOUTH THREE TIMES A DAY SOLD: 05/28/2021 [facility] 500 mg 05/22/2021 12:00:00 AM EDT capsule 32 TAKE ONE CAPSULE BY MOUTH FOUR TIMES A DAY TAKE ONE CAPSULE BY MOUTH FOUR TIMES A DAY SOLD: 05/22/2021 [facility] 500 mg 05/22/2021 12:00:00 AM EDT capsule 32 TAKE ONE CAPSULE BY MOUTH FOUR TIMES A DAY TAKE ONE CAPSULE BY MOUTH FOUR TIMES A DAY SOLD: 06/11/2021 [facility] 100 mg 05/15/2021 12:00:00 AM EDT tablet 20 TAKE ONE TABLET BY MOUTH NEEDED FOR HEADACHE MAY REPEAT ONCE IN TWO HOURS IF NEEDED TAKE ONE TABLET BY MOUTH NEEDED FOR HEADACHE MAY REPEAT ONCE IN TWO HOURS IF NEEDED SOLD: 05/18/2021 [facility] 100 mg 05/15/2021 12:00:00 AM EDT tablet 20 TAKE ONE TABLET BY MOUTH NEEDED FOR HEADACHE MAY REPEAT ONCE IN TWO HOURS IF NEEDED TAKE ONE TABLET BY MOUTH NEEDED FOR HEADACHE MAY REPEAT ONCE IN TWO HOURS IF NEEDED SOLD: 06/11/2021 [facility] 20 mcg/hour 05/08/2021 12:00:00 AM EDT patch weekly 4 APPLY 1 PATCH WEEKLY MAXIMUM DAILY DOSE = 1 PATCH WEEKLY APPLY 1 PATCH WEEKLY MAXIMUM DAILY DOSE = 1 PATCH WEEKLY SOLD: 05/08/2021 [facility] 8-2 mg 05/07/2021 12:00:00 AM EDT film [address] FOUR FILMS UNDER THE TONGUE EVERY DAY * MAXIMUM DAILY DOSE = 4 PLACE FOUR FILMS UNDER THE TONGUE EVERY DAY * MAXIMUM DAILY DOSE = 4 SOLD: 05/08/2021 [facility] 1 mg 04/25/2021 12:00:00 AM EDT tablet 60 TAKE ONE TABLET BY MOUTH EVERY DAY TAKE ONE TABLET BY MOUTH EVERY DAY SOLD: 04/25/2021 [facility] 1 mg 04/25/2021 12:00:00 AM EDT tablet 30 TAKE ONE TABLET BY MOUTH EVERY DAY TAKE ONE TABLET BY MOUTH EVERY DAY SOLD: 04/25/2021 [facility] 25 mg 04/25/2021 12:00:00 AM EDT tablet 30 TAKE 1/2 TABLET BY MOUTH ONCE DAILY TAKE 1/2 TABLET BY MOUTH ONCE DAILY SOLD: 04/25/2021 [facility] 324 mg (38 mg iron) 04/24/2021 12:00:00 AM EDT tablet 30 TAKE ONE TABLET BY MOUTH ONCE DAILY WITH BREAKFAST TAKE ONE TABLET BY MOUTH ONCE DAILY WITH BREAKFAST SOLD: 04/25/2021 [facility] Aspirin 81 MG Delayed Release Oral Tablet aspirin EC 8 1 MG EC tablet aspirin EC 81 MG EC tablet 04/24/2021 12:00:00 AM EDT 81 mg Oral ab orted Take 1 tablet (81 mg total) by mouth daily [facility] Daily Hoa (THERAGRAN) per tablet [id number] 04/24/2021 12:00:00 AM EDT 1 {tbl} Oral active Take 1 tablet by mouth d coreeny [facility] Folic Acid 1 MG Oral Tablet folic acid (FOLVITE) 1 MG tablet folic acid (FOLVITE) 1 MG tablet 04/24/2021 12:00:00 AM EDT 1 mg Oral active Take 1 tablet (1 mg total) by mouth daily [facility] Warfarin Sodium 2 MG Oral Tablet warfarin (COUMADIN) t ablet 1 mg warfarin (COUMADIN) tablet 1 mg 04/23/2021 05:00:00 PM EDT 1 mg Oral completed 1 mg, Oral, [id number], First dose on Wed04/23/21 at 1700, For 1 dose
For administration and preparation considerations, refer to [facility] in the Workplace Policy on Intranet.
[facility] Medication administered onsite Metoprolol Tartrate 25 MG Oral Tablet me toprolol tartrate (LOPRESSOR) tablet 12.5 mg metoprolol tartrate (LOPRESSOR) tablet 12.5 mg 11:00:00 AM EDT 12.5 mg Oral active 12.5 mg, Oral, 2 times daily, First dose on Wed04/23/21 at 1100
Hold for SBP less than 100, HR less than 60
[facility] Medication administered onsite Daily Hoa (THERAGRAN) 1 tablet [id number] 04/23/2021 09:00:00 AM EDT 1 {tbl} Oral active 1 tablet, Oral, Daily, First dose on Wed04/23/21 at 0900, Post-op [facility] Medication administered onsite Folic Acid 1 MG Oral Tablet folic acid (FOLVITE) table t 1 mg folic acid (FOLVITE) tablet 1 mg 04/23/2021 09:00:00 AM EDT 1 mg Oral active 1 mg, Oral, Daily, First dose on Wed04/23/21 at 0900, Post-op [facility] Medication administered onsite Warfarin Sodium 1 MG Oral Tablet warfarin (COUMADIN) 1 MG tablet warfarin (COUMADIN) 1 MG tablet 04/23/2021 12:00:00 AM EDT 1 mg Oral active Take 1 tablet (1 mg total) by mouth daily [facility] Metoprolol Tartrate 25 MG Oral Tablet me toprolol tartrate (LOPRESSOR) 25 MG tablet metoprolol tartrate (LOPRESSOR) 25 MG tablet 04/23/2021 12:0 0:00 AM EDT 12.5 mg Oral active Take 0.5 tablets (12.5 mg total) by mouth daily [facility] ferrous gluconate 324 MG Oral Tablet ferrous gluconate (FERGON) 324 MG tablet ferrous gluconate (FERGON) 324 MG tablet 04/23/2021 12:00:00 AM EDT 324 mg Oral active Take 1 tablet (324 m g total) by mouth daily with breakfast [facility] Acetaminophen 325 MG Oral Tablet acetaminophen (TYLENO L) 325 MG tablet acetaminophen (TYLENOL) 325 MG tablet 04/23/2021 12:00:00 AM EDT 65 0 mg Oral active Take 2 tablets (650 mg total) by mouth every 4 (four) hours as needed for pain [facility] heparin (porcine) injection 5,000 Units [id number] 04/22/20 10:00:00 PM EDT 5000 U Subcutaneous active 5,000 Units , Subcutaneous, Every 8 hours (scheduled), First dose on Wed04/22/21 at 2200, Post-op
Hold for platelet count less than 90,000, INR greater than or equal to 1.7 if receiving coumadin therapy
[facility] Medication administered onsite normal saline flush 0.9 % injection 3 mL [id number] 04/22/2021 09:00:00 PM EDT 3 mL Intravenous active 3 mL , Intravenous, PROTOCOL, First dose on Wed04/22/21 at 2100, Post-op
May convert IV to a saline lock when taking in good p.o. intake (minimally 600 mL).
[facility] Medication administered onsite ferrous gluconate 324 MG Oral Tablet ferrous gluconate (FERGON) tablet 324 mg ferrous gluconate (FERGON) tablet 324 mg 04/22/2021 09:00:00 PM EDT 324 mg Oral active 324 mg, Oral, 2 times daily, First dose on Wed04/22/21 at 2100, Post-op
Start when taking good p.o. intake.
[facility] Medication administered onsite Docusate Sodium 100 MG Oral Capsule docusate sodium (C OLACE) capsule 100 mg docusate sodium (COLACE) capsule 100 mg 04/22/2021 09:00:00 PM EDT 100 mg Oral active 100 mg, Oral, 2 times daily, First dose on Wed04/22/21 at 2100, Post-op
hold for loose stools
[facility] Medication administered onsite Magnesium Chloride 0.20307 MEQ/ML / Pota ssium Chloride 0.0497 MEQ/ML / Sodium Acetate 0.0163 MEQ/ML / Sodium Chloride 0.0899 MEQ/ML / Sodium gluconate 5.02 MG/ML Injectable Solution [Normosol-R] electrolyte-R (NORMOSOL-R/PLASMALYTE-R) solution electrolyte-R (NORMOSOL-R/PLASMALYTE-R) solution 04/22 07:00:00 PM EDT Intravenous active at 1 00 mL/hr, Intravenous, Continuous, Starting on Wed04/22/21 at 1900, PACU & Post-op [facility] Medication administered onsite POLYETHYLENE GLYCOL 3350 142 MG/ML Oral Solution polyethylene glycol (GLYCOLAX) packet 17 g polyethylene glycol (GLYCOLAX) packet 17 g 04/22/2021 07:00:00 PM EDT 17 g Oral active 17 g, Or al, Daily, First dose on Wed04/22/21 at 1900, Post-op
Start 2nd POD and continue until result.
[facility] Medication administered onsite acetaminophen (TYLENOL) 325 MG tablet 650 mg 06:22:28 PM EDT 650 mg Oral active [Order 1 S tart] Name: acetaminophen (TYLENOL) 325 MG tablet 650 mg Signed Summary: 650 mg, Oral, Every 4 hours PRN, fever, for temperature of 101 or greater. May also give for mild non-cardiac pain., St arting on Wed04/22/21 at 1822, Post-op
"Maximum dose of acetaminophen is 4,000 mg from all sources in 24 hours."
[Order 1 End] [Order 2 Start] Name: acetaminophen (TYLENOL) suppository 650 mg Signed Summary: 650 mg (1 suppository), Rectal, Every 4 hours PRN, fever, for temperature of 101 or greater. May also give for mild non-cardiac pain., Starting on Wed04/22/21 at 1822, Post-op [Order 2 End] [facility] Medication administered onsite potassium chloride SA (K-DUR,KLOR-CON) CR tablet 10 mEq [id number] 04/22/2021 06:22:27 PM EDT 10 meq Oral active 10 mEq, Oral, As needed, Serum K+ 3.9-4.1, Starting on Wed04/22/21 at 1822, Post-op
For serum creatinine (SCR) greater than 1.5
[facility] Medication administered onsite potassium chloride SA (K-DUR,KLOR-CON) CR tablet 20 mEq 6203 704/22/2021 06:22:27 PM EDT 20 meq Oral active 20 mEq, Oral, As needed, Serum K+ 3.5-3.8, Starting on Wed04/22/21 at 1822, Post-op
For serum creatinine (SCR) greater than 1.5
[facility] Medication administered onsite potassium chloride SA (K-DUR,KLOR-CON) CR tablet 20 mEq 6203 04/22/2021 06:22:27 PM EDT 20 meq Oral active 20 mEq, Oral, As needed, Serum K+ 3.9-4.1, Starting on Wed04/22/21 at 1822, Post-op
For serum creatinine (SCR) 0.8 to 1.5
[facility] Medication administered onsite ondansetron (ZOFRAN) injection 4 mg [id number] 04/22/2021 06:22:2 7 PM EDT 4 mg Intravenous active 4 mg, In travenous, Every 6 hours PRN, nausea, vomiting, Starting on Wed04/22/21 at 1822, Post-op
If no response in 15-30 minutes, give metoclopramide 10 mg IV x 1 then q6h prn N/V.
[facility] Medication administered onsite potassium chloride SA (K-DUR,KLOR-CON) CR tablet 40 mEq 6203 04/22/2021 06:22:27 PM EDT 40 meq Oral active 40 mEq, Oral, As needed, Serum K+ 3.5-3.8, Starting on Wed04/22/21 at 1822, Post-op
For serum creatinine (SCR) 0.8 to 1.5
[facility] Medication administered onsite 10 ML Atropine Sulfate 0.1 MG/ML Prefill ed Syringe atropine sulfate injection 0.5 mg atropine sulfate injection 0.5 mg 04/22/2021 06:22:26 PM EDT 0.5 mg active 0.5 mg, Intrave nous Push, Every 5 min PRN, other, As needed, for heart rate less than 60 BPM and the patient is hemodynamically unstable and/or SBP is less than 90mmHg, Starting on Wed04/22/21 at 1822, For 1 day, Post-op
Not to exceed a total of 3 mg or 0.04 mg/kg. Max of 6 doses
[facility] Medication administered onsite magnesium sulfate 1 g in dextrose 5% infusion (premix) 49829 [id number] 04/22/2021 06:22:26 PM EDT 1 g Intravenous active 1 g, Intravenous, at 200 mL/hr, As needed, serum Mg 1.9-2.1, Starting on Wed04/22/21 at 1822, Post-op
Give 1 grams magnesium sulfate IV x 1 run over 1 hour For serum creatinine (SCR) greater than 1.5
[facility] Medication administered onsite 50 ML Magnesium Sulfate 40 MG/ML Injecti on magnesium sulfate 2 g in sterile diluent magnesium sulfate 2 g in sterile diluent 04/22/2021 06:22:26 PM EDT 2 g Intravenous active 2 g, Int ravenous, at 50 mL/hr, As needed, serum Mg 1.5-1.8, Starting on Wed04/22/21 at 1822, Post-op
Give 2 grams magnesium sulfate IV x 1 run over 1 hour. For serum creatinine (SCR) greater than 1.5
[facility] Medication administered onsite 50 ML Magnesium Sulfate 40 MG/ML Injecti on magnesium sulfate 2 g in sterile diluent magnesium sulfate 2 g in sterile diluent 04/22/2021 06:22:26 PM EDT 2 g Intravenous active 2 g, Int ravenous, at 50 mL/hr, As needed, serum Mg 1.9-2.1, Starting on Wed04/22/21 at 1822, Post-op
Give 2 grams magnesium sulfate IV x 1 run over 1 hour. For serum creatinine (SCR) 0.8 to 1.5
[facility] Medication administered onsite 50 ML Magnesium Sulfate 40 MG/ML Injecti on magnesium sulfate 2 g in sterile diluent magnesium sulfate 2 g in sterile diluent 04/22/2021 06:22:26 PM EDT 2 g Intravenous active 2 g, Int ravenous, at 50 mL/hr, As needed, serum Mg 1.5-1.8, Starting on Wed04/22/21 at 1822, Post-op
Give 2 grams magnesium sulfate IV x 2 runs over 1 hour each. For serum creatinine (SCR) 0.8 to 1.5
[facility] Medication administered onsite Bisacodyl 10 MG Rectal Suppository bisacodyl (DULCOLAX ) suppository 10 mg bisacodyl (DULCOLAX) suppository 10 mg 04/22/2021 06:22:26 PM EDT 10 mg Rectal active 10 mg, Rectal, Daily PRN, constipation, Starting on Wed04/22/21 at 1822, Post-op
If polyethylene glycol not effective.
[facility] Medication administered onsite Nitroglycerin 0.4 MG Sublingual Tablet n itroglycerin (NITROSTAT) SL tablet 0.4 mg nitroglycerin (NITROSTAT) SL tablet 0.4 mg 04/22/2021 06:22:26 P M EDT 0.4 mg Sublingual active 0.4 mg, S ublingual, Every 5 min PRN, chest pain, Starting on Wed04/22/21 at 1822, Post-op
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 Notify MD/PA/[employer].
[facility] Medication administered onsite Aluminum Hydroxide 64 MG/ML Oral Suspens ion aluminum hydroxide (ALTERNAGEL) suspension 15 mL aluminum hydroxide (ALTERNAGEL) suspension 15 mL 04/22 06:22:26 PM EDT 15 mL Oral active 15 mL, Oral, Every 4 hours PRN, for indigestion/ gas, Starting on Wed04/22/21 at 1822, Post-op [facility] Medication administered onsite Albuterol 0.83 MG/ML Inhalant Solution a lbuterol (PROVENTIL) nebulizer solution 2.5 mg albuterol (PROVENTIL) nebulizer solution 2.5 mg 2020 06:22:25 PM EDT 2.5 mg active 2.5 mg, Nebulization, RT every 2 hours as needed, wheezing, shortness of breath, Starting on Wed04/22/21 at 1822, Post-op [facility] Medication administered onsite warfarin (COUMADIN) tablet 3 mg 04/19/2021 05:00:00 PM EDT 3 mg Oral completed 3 mg, Oral, WAR17, F irst dose on 04/19/21 at 1700, For 1 dose
For administration and preparation considerations, refer to [facility] in the Workplace Policy on Intranet.
[facility] Medication administered onsite gabapentin 800 MG Oral Tablet gabapentin (NEURONTIN) t ablet 400 mg gabapentin (NEURONTIN) tablet 400 mg 04/19/2021 03:00:00 PM EDT 400 mg Oral active 400 mg, Oral, 3 times daily, First dose (after last modification) on Wed04/19/21 at 1500 [facility] Medication administered onsite norepinephrine bitartrate (LEVOPHED) 4 m g in sodium chloride (NS) 0.9 % 250 mL infusion 04/19/2021 01:00:00 PM EDT ug/min Intravenous aborted 0-4 mcg/min (0-15 mL/hr), Intravenous, Continuous, Starting on Wed04/19/21 at 1300, Until Wed04/22/21 at 1822, at 0-15 mL/hr [facility] Medication administered onsite Buprenorphine 8 MG / Naloxone 2 MG Subli ngual Tablet buprenorphine HCl-naloxone HCl (SUBOXONE) 8-2 MG tablet 1 tablet buprenorphine HCl-naloxone HCl (SUBOXONE ) 8-2 MG tablet 1 tablet 04/19/2021 01:00:00 PM EDT 1 {tbl} Sublingual active 1 tablet, Sublingual , QIDSS, First dose (after last reorder) on 04/19/21 at 1300, For 7 days
Suboxone is for SUBLINGUAL administration only and should NOT be given at the same time as other po medications
[facility] Medication administered onsite albumin human 5 % bottle 12.5 g [id number] 04/19/2021 12:00:00 PM EDT 12.5 g Intravenous completed Systolic Hypotension 12. 5 g, Intravenous, Once, Indications: Systolic Hypotension, On 04/19/21 at 1200, For 1 dose [facility] Systolic Hypotension Medication administered onsite albumin human 5 % bottle 12.5 g [id number] 04/19/2021 11:00:00 AM EDT 12.5 g Intravenous completed Hypotension 12.5 g, Intr avenous, Once, Indications: Hypotension, On 04/19/21 at 1100, For 1 dose [facility] Hypotension Medication administered onsite POLYETHYLENE GLYCOL 3350 142 MG/ML Oral Solution polyethylene glycol (GLYCOLAX) packet 17 g polyethylene glycol (GLYCOLAX) packet 17 g 04/19/2021 09:00:00 AM EDT 17 g Oral aborted 17 g, Or al, Daily, First dose on 04/19/21 at 0900, PACU & Post-op
Starting 2nd POD, give every day until result
[facility] Medication administered onsite Amiodarone hydrochloride 200 MG Oral Tablet amiodarone (PACERONE) tablet 400 mg amiodarone (PACERONE) tablet 400 mg 04/19/2021 09:00:00 AM EDT 400 mg Oral aborted 400 mg, Oral, Daily, First d ose on 04/19/21 at 0900 [facility] Medication administered onsite Amlodipine 10 MG Oral Tablet amLODIPine (NORVASC) tabl et 10 mg amLODIPine (NORVASC) tablet 10 mg 04/19/2021 09:00:00 AM EDT 10 mg Oral aborted 10 mg, Oral, Daily, First dose on 04/19/21 at 0900 [facility] Medication administered onsite ferrous gluconate 324 MG Oral Tablet ferrous gluconate (FERGON) tablet 324 mg ferrous gluconate (FERGON) tablet 324 mg 04/19/2021 07:00:00 AM EDT 324 mg Oral aborted 324 mg, Oral, 2 times daily before meals, First dose on 04/19/21 at 0700, PACU & Post-op
Start POD #2
[facility] Medication administered onsite Amlodipine 10 MG Oral Tablet amLODIPine (NORVASC) tabl et 10 mg amLODIPine (NORVASC) tablet 10 mg 04/19/2021 12:00:00 AM EDT 10 mg Oral completed 10 mg, Oral, Once, On Wed04/19/21 at 0000, For 1 dose [facility] Medication administered onsite Lisinopril 10 MG Oral Tablet lisinopril (PRINIVIL,ZEST RIL) tablet 5 mg lisinopril (PRINIVIL,ZESTRIL) tablet 5 mg 04/18/2021 09:00:00 PM EDT 5 mg Oral completed 5 mg, Oral, Once, On Wed04/18/21 at 2100, For 1 dose [facility] Medication administered onsite Lisinopril 10 MG Oral Tablet lisinopril (PRINIVIL,ZEST RIL) tablet 5 mg lisinopril (PRINIVIL,ZESTRIL) tablet 5 mg 04/18/2021 07:00:00 PM EDT 5 mg Oral aborted 5 mg, Oral, Da lane, First dose on Wed04/18/21 at 1900
Hold for SBP <105
[facility] Medication administered onsite Warfarin Sodium 2 MG Oral Tablet warfarin (COUMADIN) t ablet 2 mg warfarin (COUMADIN) tablet 2 mg 04/18/2021 05:00:00 PM EDT 2 mg Oral completed 2 mg, Oral, WAR17, First dose on Wed04/18/21 at 1700, For 1 dose
For administration and preparation considerations, refer to [facility] Drugs in the Workplace Policy on Intranet.
[facility] Medication administered onsite albumin human 5 % bottle 12.5 g [id number] 04/18/2021 02:00:00 PM EDT 12.5 g Intravenous completed 12.5 g, Intra venous, Once, Indications: low urine output, On Wed04/18/21 at 1400, For 1 dose [facility] Medication administered onsite 168 HR Buprenorphine 0.01 MG/HR Transder mal Patch buprenorphine (BUTRANS) 10 MCG/HR 2 patch buprenorphine (BUTRANS) 10 MCG/HR 2 patch 04/18/2021 0 9:00:00 AM EDT 2 {patch} Topical active 2 patc h, Topical, Administer over 7 Days, Every 7 days, First dose on Wed04/18/21 at 0900, For 7 days
Apply 2 patches (10mcg/hr per patch) to make dose of 20mcg/hr
[facility] Medication administered onsite Ascorbic Acid 500 MG Oral Tablet ascorbic acid (VITAMI N C) tablet 500 mg ascorbic acid (VITAMIN C) tablet 500 mg 04/18/2021 09:00:00 AM EDT 500 mg Oral active 500 mg, Oral, Daily, First dose on Wed04/18/21 at 0900
Give PO/OG. Start first POD.
[facility] Medication administered onsite Docusate Sodium 100 MG Oral Capsule docusate sodium (C OLACE) capsule 100 mg docusate sodium (COLACE) capsule 100 mg 04/18/2021 09:00:00 AM EDT 100 mg Oral aborted 100 mg, Oral, Daily, First dose on Wed04/18/21 at 0900, PACU & Post-op
Give PO/OG. Start first POD
[facility] Medication administered onsite Folic Acid 1 MG Oral Tablet folic acid (FOLVITE) table t 1 mg folic acid (FOLVITE) tablet 1 mg 04/18/2021 09:00:00 AM EDT 1 mg Oral aborted 1 mg, Oral, Daily, First dose on Wed04/18/21 at 0900, PACU & Post-op
Give PO/OG. Start first POD
[facility] Medication administered onsite normal saline flush 0.9 % injection 3 mL [id number] 04/18/2021 09:00:00 AM EDT 3 mL Intravenous aborted 3 mL , Intravenous, PROTOCOL, First dose on Wed04/18/21 at 0900, PACU & Post-op
May convert to saline lock with minimally 600 ml PO intake on first POD; prior to transfer
[facility] Medication administered onsite Aspirin 81 MG Delayed Release Oral Tablet aspirin EC t ablet 81 mg aspirin EC tablet 81 mg 04/18/2021 09:00:00 AM EDT 81 mg Oral activ e 81 mg, Oral, Daily, First dose on Wed04/18/21 at 0900
Hold for platelet count less than 90,000. If OG tube in place, give non-enteric coated aspirin.
[facility] Medication administered onsite Famotidine 20 MG Oral Tablet famotidine (PEPCID) table t 20 mg famotidine (PEPCID) tablet 20 mg 04/18/2021 09:00:00 AM EDT 20 mg Oral active 20 mg, Oral, Daily, First dose (after last reorder) on Wed04/18/21 at 0900
Start after extubation Dose adjusted per pharmacy renal dosing protocol
[facility] Medication administered onsite heparin (porcine) injection 5,000 Units [id number] 04/18/20 06:00:00 AM EDT 5000 U Subcutaneous aborted 5,000 Units , Subcutaneous, Every 8 hours (scheduled), First dose on Wed04/18/21 at 0600, PACU & Post-op
Start first POD. Hold for platelet count less than 90,000, INR greater than or equal to 1.7 if receiving coumadin therapy.
[facility] Medication administered onsite Amitriptyline Hydrochloride 25 MG Oral T ablet amitriptyline (ELAVIL) tablet 100 mg amitriptyline (ELAVIL) tablet 100 mg 04/17/2021 09:00:00 PM EDT 100 mg Oral active 100 mg, Oral, Nightl y, First dose on Wed04/17/21 at 2100 [facility] Medication administered onsite atorvastatin 80 MG Oral Tablet atorvastatin (LIPITOR) tablet 80 mg atorvastatin (LIPITOR) tablet 80 mg 04/17/2021 09:00:00 PM EDT 80 mg Oral active 80 mg, Oral, Nightly, First dose on Gerri 04/17/21 at 2100 [facility] Medication administered onsite Mupirocin 0.02 MG/MG Topical Ointment mupirocin (BACTR OBAN) 2 % ointment mupirocin (BACTROBAN) 2 % ointment 04/17/2021 09:00:00 PM EDT Nasal completed Nasal, 2 times daily , 7 doses, First dose on Wed04/17/21 at 2100, Last dose on Wed04/20/21 at 2100 [facility] Medication administered onsite 60 ACTUAT mometasone furoate 0.2 MG/ACTU AT Dry Powder Inhaler mometasone furoate (ASMANEX) DPI 220 mcg/inh inhaler mometasone furoate (ASMANEX) DPI 220 mcg /inh inhaler 04/17/2021 08:00:00 PM EDT 1 {puff} Inhalation acti ve 1 puff, Inhalation, 2 times daily, First dose on Wed04/17/21 at 2000 [facility] Medication administered onsite Dexmedetomidine HCl 400 mcg in sodium chloride (NS) 0.9 % 10 0 mL infusion 04/17/2021 07:00:00 PM EDT ug/kg/h Intravenous aborted Post-op, 0.2- 0.7 mcg/kg/hr 64.9 kg (3.245-11.3575 mL/hr, rounded to 3.2-11.4 mL/hr), Intravenous, Continuous, Starting on Wed04/17/21 at 1900, Until Wed04/18/21 at 0539, at 3.2- 11.4 mL/hr [facility] Medication administered onsite ezetimibe 10 MG Oral Tablet ezetimibe (ZETIA) tablet 1 0 mg ezetimibe (ZETIA) tablet 10 mg 04/17/2021 06:00:00 PM EDT 10 mg Oral activ e 10 mg, Oral, Daily, First dose on Wed04/17/21 at 1800 [facility] Medication administered onsite Cefazolin 1000 MG Injection ceFAZolin (ANCEF) injectio n 1 g ceFAZolin (ANCEF) injection 1 g 04/17/2021 04:00:00 PM EDT 1 g Intravenous completed 1 g, Intravenous, Every 8 hours (relative), First dose on Wed04/17/21 at 1600, For 5 doses, PACU & Post-op
Not to exceed 48 hours from time of closure. Time of closure = 1055am Reconstitute with 10 ml sterile water for injection. Administer IV push over 3 minutes. Use within 1 hour of reconstitution
[facility] Medication administered onsite gabapentin 800 MG Oral Tablet gabapentin (NEURONTIN) t ablet 800 mg gabapentin (NEURONTIN) tablet 800 mg 04/17/2021 03:00:00 PM EDT 800 mg Oral aborted 800 mg, Oral, 3 times daily, First dose on Gerri 04/17/21 at 1500 [facility] Medication administered onsite amiodarone HCl 900 mg in dextrose 5 % 500 mL infusion 04/17/2021 02:00:00 PM EDT mg/min Intravenous aborted 0.5- 1 mg/min (16.6667-33.3333 mL/hr, rounded to 16.7-33.3 mL/hr), Intravenous, Continuous, Starting on Gerri 04/17/21 at 1400, Until 04/19/21 at 0624, at 16.7-33.3 mL/hr [facility] Medication administered onsite 3 ML Amiodarone hydrochloride 50 MG/ML I njection amiodarone (CORDARONE) injection SOLN 150 mg amiodarone (CORDARONE) injection SOLN 150 mg 02:00:00 PM EDT 150 mg Intravenous completed 150 mg, Intravenous, Once, On Gerri 04/17/21 at 1400, For 1 dose
Administer through 0.22 micron filter, mix in 100 mL D5W and infuse over 10 minutes
[facility] Medication administered onsite Ipratropium [place] 0.2 MG/ML Inhalant S olution ipratropium (ATROVENT) 0.02 % nebulizer solution 0.5 mg ipratropium (ATROVENT) 0.02 % nebulizer solution 0.5 mg 04/17/2021 12:00:00 PM EDT 0.5 mg active 0.5 mg, Nebulization, 4 times daily, First dose on Gerri 04/17/21 at 1200 [facility] Medication administered onsite Vitamin B 12 1 MG/ML Injectable Solution cyanocobalami n injection 1,000 mcg cyanocobalamin injection 1,000 mcg 04/17/2021 12:00:00 PM EDT 10 00 ug Subcutaneous completed 1,000 mcg, S ubcutaneous, Once, On Gerri 04/17/21 at 1200, For 1 dose, PACU & Post-op
DEEP SUBCUTANEOUS
[facility] Medication administered onsite Famotidine (PEPCID) injection 20 mg [id number] 04/17/2021 12:00:0 0 PM EDT 20 mg Intravenous aborted 20 mg, I ntravenous, Every 12 hours (scheduled), First dose on Gerri 04/17/21 at 1200, PACU & Post-op
D/C after extubation
[facility] Medication administered onsite niCARdipine (CARDENE) 50 mg/250 ml 0.9% NaCl infusion 04/17/2021 12:00:00 PM EDT mg/h Intravenous aborted PACU & Post-op, 0-15 mg/hr (0-75 mL/hr), Intravenous, Continuous, Starting on Gerri 04/17/21 at 1200, Until 04/19/21 at 1119, at 0-75 mL/hr [facility] Medication administered onsite Magnesium Chloride 0.77483 MEQ/ML / Pota ssium Chloride 0.0497 MEQ/ML / Sodium Acetate 0.0163 MEQ/ML / Sodium Chloride 0.0899 MEQ/ML / Sodium gluconate 5.02 MG/ML Injectable Solution [Normosol-R] electrolyte-R (NORMOSOL-R/PLASMALYTE-R) solution electrolyte-R (NORMOSOL-R/PLASMALYTE-R) solution 04/17 12:00:00 PM EDT Intravenous aborted at 0 -80 mL/hr, Intravenous, Continuous, Starting on Gerri 04/17/21 at 1200, Post-op
From 0600 first post-op day, adjust IV and PO intake so that total fluid intake is 2 liters in 24 hours
[facility] Medication administered onsite propofol (DIPRIVAN) infusion 10 mg/mL [id number] 04/17/2021 12:00 :00 PM EDT ug/kg/min Intravenous completed 0-25 mcg /kg/min 64.9 kg (0-9.735 mL/hr, rounded to 0-9.7 mL/hr), Intravenous, at 0-9.7 mL/hr, Continuous, Starting on Gerri 04/17/21 at 1200, For 2 hours, Post-op
Titrate to maintain target RASS score 0 to -2May give IV bolus of 0.5 mg/kg over 1 minute to maintain target sedation score. If needed may repeat x 1 in 10 minutes prn.PROPOFOL OFF 2 HOURS AFTER ADMISSION TO CVICU
[facility] Medication administered onsite Dexmedetomidine HCl 400 mcg in sodium chloride (NS) 0.9 % 10 0 mL infusion 04/17/2021 12:00:00 PM EDT ug/kg/h Intravenous complete d Post-op, 0.2-0.7 mcg/kg/hr 64.9 kg (3.245-11.3575 mL/hr, rounded to 3.2-11.4 mL/hr), Intravenous, Continuous, Starting on Gerri 04/17/21 at 1200, Until Gerri 04/17/21 at 1544, at 3.2- 11.4 mL/hr [facility] Medication administered onsite ondansetron (ZOFRAN) injection 4 mg [id number] 04/17/2021 11:12:1 7 AM EDT 4 mg Intravenous aborted 4 mg, In travenous, Every 6 hours PRN, nausea, vomiting, Starting on Gerri 04/17/21 at 1112, PACU & Post-op [facility] Medication administered onsite potassium chloride 20 mEq in 50 mL IVPB (CRITICAL CARE/PCU O NLY) [id number] 04/17/2021 11:12:17 AM EDT 20 meq Intravenous aborted 20 mEq, Intravenous, Administer over 60 Minutes, As needed, other, Starting on Gerri 04/17/21 at 1112, PACU & Post-op
For Serum K+ 3.5 to 3.8, give 20 meq for 2 doses, each dose over an hour through a central line For Serum K+ 3.9 to 4.1, give 20 meq for 1 dose, over 1 hour through a central line
[facility] Medication administered onsite Patient on Coumadin during hospitalizati on. (To order Coumadin on discharge click the don t prescribe button and go to new orders on discharge section. Coumadin can be ordered there. Alternatively, reconcile the pre admission Coumadin dose if it appears on the list below) drug or medication 04/17/2021 11:12:17 AM EDT 1 {each} active 1 each, Mi scellaneous, Daily Coumadin Notification (1000), Starting on Gerri 04/17/21 at 1112, Until Discontinued
Indication for Warfarin: Tissue Heart Valve
Target INR: 2 to 3 [facility] Medication administered onsite magnesium sulfate 1 g in dextrose 5% infusion (premix) 36040 [id number] 04/17/2021 11:12:16 AM EDT 1 g Intravenous aborted 1 g, Intravenous, Administer over 30 Minutes
As needed, for serum Mg+ 1.9 to 2.1, Starting on Gerri 04/17/21 at 1112, PACU & Post-op
Run over 30 minutes through a central line
[facility] Medication administered onsite 2 ML Midazolam 1 MG/ML Injection midazolam (VERSED) in jection 1 mg midazolam (VERSED) injection 1 mg 04/17/2021 11:12:16 AM EDT 1 mg Intraveno us aborted 1 mg, Intravenous, E very 30 min PRN, anxiety, sedation, Starting on Gerri 04/17/21 at 1112, For 7 days, PACU & Post-op
Target RASS -2 to +1 DISCONTINUE AFTER EXTUBATION
[facility] Medication administered onsite HYDROmorphone (DILAUDID) injection 0.5 mg [id number] 04/17/2021 11:12:16 AM EDT 0.5 mg Intravenous aborted 0.5 mg, Intravenous, Every 5 min PRN, severe pain (7-10), Starting on Gerri 04/17/21 at 1112, For 7 days
Indicated for patients less than 75 years of age and not frail patients. FOR EXTUBATED PATIENTS ONLY. DISCONTINUE 6 HOURS POST EXTUBATION. Maximum dose 2 mg.
[facility] Medication administered onsite fentaNYL Citrate (PF) (SUBLIMAZE) injection 25 mcg [id number] 04/17/2021 11:12:15 AM EDT 25 ug Intravenous aborted 25 mcg, Intravenous, Every 10 min PRN, moderate pain (4-6), Starting on Gerri 04/17/21 at 1112, For 7 days, PACU & Post-op
Maximum 10 doses in a 24-hour period. DISCONTINUE 6 HOURS POST EXTUBATION
[facility] Medication administered onsite HYDROmorphone (DILAUDID) injection 0.5 mg [id number] 04/17/2021 11:12:15 AM EDT 0.5 mg Intravenous aborted 0.5 mg, Intravenous, Every 10 min PRN, severe pain (7-10), Starting on Gerri 04/17/21 at 1112, For 7 days, PACU & Post- op
Indicated for patients less than 75 years of age and not frail patients. FOR INTUBATED PATIENTS ONLY. DISCONTINUE POST EXTUBATION. Maximum dose 3 mg.
[facility] Medication administered onsite Acetaminophen 325 MG Oral Tablet acetaminophen (TYLENO L) 325 MG tablet 650 mg acetaminophen (TYLENOL) 325 MG tablet 650 mg 04/17/2021 11:12:13 AM EDT 650 mg Oral aborted 650 mg, Or al, Every 4 hours PRN, headaches, and temp >101. Call MD/PA., Starting on Gerri 04/17/21 at 1112, PACU & Post-op
"Maximum dose of acetaminophen is 4,000 mg from all sources in 24 hours."
[facility] Medication administered onsite Metoprolol Tartrate 25 MG Oral Tablet me toprolol tartrate (LOPRESSOR) tablet 12.5 mg metoprolol tartrate (LOPRESSOR) tablet 12.5 mg 021 09:00:00 AM EDT 12.5 mg Oral aborted 12.5 mg, Oral, 2 times daily, First dose on Gerri 04/17/21 at 0900, Pre-op
Hold for HR < 60, or SBP <100
[facility] Medication administered onsite BUPIVACAINE 0.5% (Q-BALL) 330 mL drug or medication 04/17/2021 0 8:00:00 AM EDT 330 mL Topical active 330 mL, Topical, Continuous, Starting on Gerri 04/17/21 at 0800, Intra-op
Please indicate single or double lumen: Single Lumen [facility] Medication administered onsite heparin (porcine) injection 5,000 Units [id number] 04/17/20 06:00:00 AM EDT 5000 U Subcutaneous completed 5,000 Uni ts, Subcutaneous, Once, On Gerri 04/17/21 at 0600, For 1 dose, Pre-op
Once on admission. Hold for platelets < 90,000.
[facility] Medication administered onsite 2 % 04/16/2021 12:00:00 AM EDT ointment 22 APPLY WITH COTTON SWAB TO EACH NOSTRIL TWO TIMES A DAY, START FIVE DAYS PRIOR TO SURGERY APPLY WITH COTTON SWAB TO EACH NOSTRIL TWO TIMES A DAY, START FIVE DAYS PRIOR TO SURGERY SOLD: 04/16/2021 [facility] 20 mcg/hour 04/10/2021 12:00:00 AM EDT patch weekly 4 APPLY 1 PATCH TO SKIN ONCE WEEKLY, MAX 1 PATCH PER WEEK APPLY 1 PATCH TO SKIN ONCE WEEKLY, MAX 1 PATCH PER WEEK SOLD: 04/10/2021 [facility] 8-2 mg 04/06/2021 12:00:00 AM EDT film 112 DISSOLVE 4 FILMS UNDER THE SKIN ONCE DAILY, MAXIMUM DAILY DOSE = 4 FILMS DISSOLVE 4 FILMS UNDER THE SKIN ONCE DAILY, MAXIMUM DAILY DOSE = 4 FILMS SOLD: 04/06/2021 [facility] 20 mcg/hour 03/14/2021 12:00:00 AM EDT patch weekly 4 APPLY 1 PATCH TO SKIN ONCE WEEKLY, MAX OF 1 PATCH PER WEEK APPLY 1 PATCH TO SKIN ONCE WEEKLY, MAX O F 1 PATCH PER WEEK SOLD: 03/14/2021 [facility] 8-2 mg 03/09/2021 12:00:00 AM EDT film 112 DISSOLVE 4 FILMS ON THE TONGUE ONCE DAILY, MAXIMUM DAILY DOSE = 4 FILMS DISSOLVE 4 FILMS ON THE TONGUE ONCE DAILY, MAXIMUM DAILY DOSE = 4 FILMS SOLD: 03/10/2021 [facility] 10-200 mg 02/25/2021 12:00:00 AM EDT tablet 16 AFTER STOPPING BUPRENORPHINE, TAKE ONE TABLET BY MOUTH FOUR TIMES A DAY NEEDED FOR PAIN, MAXIMUM DAILY DOSE = 4 TABLETS AFTER STOPPING BUPRENORPHINE, TAKE ONE T ABLET BY MOUTH FOUR TIMES A DAY NEEDED FOR PAIN, MAXIMUM DAILY DOSE = 4 TABLETS SOLD: 02/25/2021 [facility] 20 mcg/hour 02/11/2021 12:00:00 AM EDT patch weekly 4 APPLY ONE PATCH TO THE SKIN ONCE WEEKLY MAXIMUM DAILY DOSE = 1/ 7 DAYS APPLY ONE PATCH TO THE SKIN ONCE WEEKLY MAXIMUM DAILY DOSE = 1/ 7 DAYS SOLD: 02/12/2021 [facility] 8-2 mg 02/10/2021 12:00:00 AM EDT film 112 DISSOLVE 4 FILMS UNDER TONGUE ONCE DAILY, MAXIMUM DAILY DOSE = 4 FILMS DISSOLVE 4 FILMS UNDER TONGUE ONCE DAILY, MAXIMUM DAILY DOSE = 4 FILMS SOLD: 02/10/2021 [facility] 10 mg 02/07/2021 12:00:00 AM EDT tablet 90 TAKE ONE TABLET BY MOUTH EVERY DAY TAKE ONE TABLET BY MOUTH EVERY DAY SOLD: 05/18/2021 [facility] 10 mg 02/07/2021 12:00:00 AM EDT tablet 90 TAKE ONE TABLET BY MOUTH EVERY DAY TAKE ONE TABLET BY MOUTH EVERY DAY SOLD: 02/14/2021 [facility] ezetimibe 10 MG Oral Tablet ezetimibe (ZETIA) 10 MG ta blet ezetimibe (ZETIA) 10 MG tablet 02/06/2021 12:00:00 AM EDT 10 mg Oral active Take 1 tablet (10 mg total) by mouth daily [facility] Furosemide 20 MG Oral Tablet furosemide (LASIX) 20 MG tablet furosemide (LASIX) 20 MG tablet 02/06/2021 12:00:00 AM EDT 20 mg Oral abort ed Take 1 tablet (20 mg total) by mouth daily [facility] 24 HR Nicotine 0.292 MG/HR Transdermal Patch nicotine (NICODERM CQ) 7 MG/24HR nicotine (NICODERM CQ) 7 MG/24HR 02/06/2021 12:00:00 AM EDT 1 {p atch} Transdermal aborted Place 1 patch on t he skin daily [facility] 20 mcg/hour 01/14/2021 12:00:00 AM EDT patch weekly 4 APPLY 1 PATCH TO SKIN ONCE WEEKLY, MAX OF 1 PATCH PER WEEK APPLY 1 PATCH TO SKIN ONCE WEEKLY, MAX O F 1 PATCH PER WEEK SOLD: 01/15/2021 [facility] 8-2 mg 01/13/2021 12:00:00 AM EDT film 112 DISSOLVE 4 FILMS UNDER THE TONGUE ONCE DAILY, MAXIMUM DAILY DOSE = 4 FILMS DISSOLVE 4 FILMS UNDER THE TONGUE ONCE DAILY, MAXIMUM DAILY DOSE = 4 FILMS SOLD: 01/14/2021 [facility] 5 mg 01/09/2021 12:00:00 AM EDT tablet 30 TAKE ONE TABLET BY MOUTH EVERY DAY TAKE ONE TABLET BY MOUTH EVERY DAY SOLD: 01/09/2021 [facility] Lisinopril 5 MG Oral Tablet lisinopril (PRINIVIL,ZESTR IL) 5 MG tablet lisinopril (PRINIVIL,ZESTRIL) 5 MG tablet 01/07/2021 12:00:00 AM EDT 5 mg Or al aborted Take 1 tablet (5 mg total) by mo azh daily [facility] 100 mg 12/26/2020 12:00:00 AM EDT tablet 30 TAKE ONE TABLET BY MOUTH EVERY DAY TAKE ONE TABLET BY MOUTH EVERY DAY SOLD: 12/26/2020 [facility] 100 mg 12/26/2020 12:00:00 AM EDT tablet 30 TAKE ONE TABLET BY MOUTH EVERY DAY TAKE ONE TABLET BY MOUTH EVERY DAY SOLD: 05/08/2021 [facility] 100 mg 12/26/2020 12:00:00 AM EDT tablet 30 TAKE ONE TABLET BY MOUTH EVERY DAY TAKE ONE TABLET BY MOUTH EVERY DAY SOLD: 04/02/2021 [facility] 100 mg 12/26/2020 12:00:00 AM EDT tablet 30 TAKE ONE TABLET BY MOUTH EVERY DAY TAKE ONE TABLET BY MOUTH EVERY DAY SOLD: 01/26/2021 [facility] 100 mg 12/26/2020 12:00:00 AM EDT tablet 30 TAKE ONE TABLET BY MOUTH EVERY DAY TAKE ONE TABLET BY MOUTH EVERY DAY SOLD: 02/28/2021 [facility] 20 mcg/hour 12/18/2020 12:00:00 AM EDT patch weekly 4 APPLY 1 PATCH ON SKIN ONCE A WEEK, TAKE OFF OLD PATCH WHEN REPLACING, MAX OF 1 PATCH PER WEEK APPLY 1 PATCH ON SKIN ONCE A WEEK, TAKE OFF OLD PATCH WHEN REPLACING, MAX OF 1 PATCH PER WEEK SOLD: 12/18/2020 [facility] 8-2 mg 12/17/2020 12:00:00 AM EDT film [address] 4 FILMS UNDER THE TONGUE DAILY MAXIMUM DAILY DOSE = [address] 4 FILMS UNDER THE TONGUE DAILY MAX IMUM DAILY DOSE = 4 STRIPS SOLD: 12/17/2020 [employer] iopamidol (ISOVUE-370) 76 % [id number] 12/10/2020 01:37:13 PM EDT active As needed, Starting 12/10/20 at 1337, Intra-Procedu re [facility] Medication administered onsite NITROGLYCERIN 0.4 MG/ML IV SOLN [id number] 12/10/2020 12:43:30 PM EDT active As needed, Starting Tue 12/10 at 1243, Intra-Procedure [facility] Medication administered onsite 1 ML heparin sodium, porcine 1000 UNT/ML Injection hep shanti (porcine) injection heparin (porcine) injection 12/10/2020 12:33:21 PM EDT active As needed, Starting 12/10/20 at 1233, Intra-Procedure [facility] Medication administered onsite lidocaine 1 % injection [id number] 12/10/2020 12:29:18 PM EDT active As needed, Starting 12/10/20 at 1229, Intra-Procedure [facility] Medication administered onsite 2 ML Midazolam 1 MG/ML Injection midazolam (VERSED) in jection midazolam (VERSED) injection 12/10/2020 12:28:40 PM EDT active As needed, Starting 12/10/20 at 1228, Intra-Procedure [facility] Medication administered onsite fentaNYL Citrate (PF) (SUBLIMAZE) injection [id number] 12/10/2020 12:28:26 PM EDT active As neede d, Starting 12/10/20 at 1228, Intra-Procedure [facility] Medication administered onsite sodium chloride 0.9% (NS) infusion [id number] 12/10/2020 10:00:00 AM EDT 100 mL/h Intravenous active at 100 m L/hr, 100 mL/hr, Intravenous, Continuous, Starting Wed12/10/20 at 1000, Pre-op [facility] Medication administered onsite normal saline flush 0.9 % injection 3 mL [id number] 12/10/2020 10:00:00 AM EDT 3 mL Intravenous active 3 mL , Intravenous, Every 8 hours (scheduled), First dose on Wed12/10/20 at 1000, Pre-op
Rapid push positive pressure flushing shall be performed with a 10 cc normal saline syringe to check the PATENCY of a PIV site prior to any infusion therapy initiation unless resistance is met.
[facility] Medication administered onsite 40 mg 12/10/2020 12:00:00 AM EDT tablet 30 TAKE ONE TABLET BY MOUTH ONCE DAILY TAKE ONE TABLET BY MOUTH ONCE DAILY SOLD: 12/14/2020 [employer] Aspirin 81 MG Delayed Release Oral Tablet aspirin EC 8 1 MG EC tablet aspirin EC 81 MG EC tablet 12/09/2020 12:00:00 AM EDT 81 mg Oral ab orted Take 1 tablet (81 mg total) by mouth daily [facility] Furosemide 40 MG Oral Tablet furosemide (LASIX) 40 MG tablet furosemide (LASIX) 40 MG tablet 12/09/2020 12:00:00 AM EDT 40 mg Oral activ e Take 1 tablet (40 mg total) by mouth daily [facility] 100 mg 12/07/2020 12:00:00 AM EDT tablet 20 TAKE 1 TABLET BY MOUTH NEEDED FOR HEADACHE MAY REPEAT IN 2 HR X 1 IF NEED TAKE 1 TABLET BY MOUTH NEEDED FOR HEADACHE MAY REPEAT IN 2 HR X 1 IF NEED SOLD: 12/08/2020 [employer] 100 mg 12/07/2020 12:00:00 AM EDT tablet 20 TAKE 1 TABLET BY MOUTH NEEDED FOR HEADACHE MAY REPEAT IN 2 HR X 1 IF NEED TAKE 1 TABLET BY MOUTH NEEDED FOR HEADACHE MAY REPEAT IN 2 HR X 1 IF NEED SOLD: 01/20/2021 [employer] gabapentin 800 MG Oral Tablet GABAPENTIN 12/07/2020 12:00:00 AM EDT ta blet 90 TAKE ONE TABLET BY MOUTH THREE TIMES A DAY TAKE ONE TABLET BY MOUTH THREE TIMES A DAY SOLD: 04/27/2021 [facility] 80 mg 12/07/2020 12:00:00 AM EDT tablet 30 TAKE ONE TABLET BY MOUTH EVERY DAY TAKE ONE TABLET BY MOUTH EVERY DAY SOLD: 02/28/2021 [facility] 80 mg 12/07/2020 12:00:00 AM EDT tablet 30 TAKE ONE TABLET BY MOUTH EVERY DAY TAKE ONE TABLET BY MOUTH EVERY DAY SOLD: 04/02/2021 [facility] gabapentin 800 MG Oral Tablet GABAPENTIN 12/07/2020 12:00:00 AM EDT ta blet 90 TAKE ONE TABLET BY MOUTH THREE TIMES A DAY TAKE ONE TABLET BY MOUTH THREE TIMES A DAY SOLD: 03/29/2021 [facility] 80 mg 12/07/2020 12:00:00 AM EDT tablet 30 TAKE ONE TABLET BY MOUTH EVERY DAY TAKE ONE TABLET BY MOUTH EVERY DAY SOLD: 06/11/2021 [facility] gabapentin 800 MG Oral Tablet GABAPENTIN 12/07/2020 12:00:00 AM EDT ta blet 90 TAKE ONE TABLET BY MOUTH THREE TIMES A DAY TAKE ONE TABLET BY MOUTH THREE TIMES A DAY SOLD: 03/04/2021 [facility] 80 mg 12/07/2020 12:00:00 AM EDT tablet 30 TAKE ONE TABLET BY MOUTH EVERY DAY TAKE ONE TABLET BY MOUTH EVERY DAY SOLD: 05/08/2021 [facility] 100 mg 12/07/2020 12:00:00 AM EDT tablet 20 TAKE 1 TABLET BY MOUTH NEEDED FOR HEADACHE MAY REPEAT IN 2 HR X 1 IF NEED TAKE 1 TABLET BY MOUTH NEEDED FOR HEADACHE MAY REPEAT IN 2 HR X 1 IF NEED SOLD: 03/21/2021 [facility] 100 mg 12/07/2020 12:00:00 AM EDT tablet sustained-releas e 12 hr 30 TAKE ONE TABLET BY MOUTH EVERY DAY IN THE MORNING TAKE ONE TABLET BY MOUTH EVERY DAY IN THE MORNING SOLD: 01/20/2021 [facility] gabapentin 800 MG Oral Tablet GABAPENTIN 12/07/2020 12:00:00 AM EDT ta blet 90 TAKE ONE TABLET BY MOUTH THREE TIMES A DAY TAKE ONE TABLET BY MOUTH THREE TIMES A DAY SOLD: 02/01/2021 [facility] 100 mg 12/07/2020 12:00:00 AM EDT tablet sustained-releas e 12 hr 30 TAKE ONE TABLET BY MOUTH EVERY DAY IN THE MORNING TAKE ONE TABLET BY MOUTH EVERY DAY IN THE MORNING SOLD: 02/28/2021 [facility] 100 mg 12/07/2020 12:00:00 AM EDT tablet sustained-releas e 12 hr 30 TAKE ONE TABLET BY MOUTH EVERY DAY IN THE MORNING TAKE ONE TABLET BY MOUTH EVERY DAY IN THE MORNING SOLD: 12/08/2020 [facility] 80 mg 12/07/2020 12:00:00 AM EDT tablet 30 TAKE ONE TABLET BY MOUTH EVERY DAY TAKE ONE TABLET BY MOUTH EVERY DAY SOLD: 12/08/2020 [facility] gabapentin 800 MG Oral Tablet GABAPENTIN 12/07/2020 12:00:00 AM EDT ta blet 90 TAKE ONE TABLET BY MOUTH THREE TIMES A DAY TAKE ONE TABLET BY MOUTH THREE TIMES A DAY SOLD: 01/03/2021 [facility] 100 mg 12/07/2020 12:00:00 AM EDT tablet 20 TAKE 1 TABLET BY MOUTH NEEDED FOR HEADACHE MAY REPEAT IN 2 HR X 1 IF NEED TAKE 1 TABLET BY MOUTH NEEDED FOR HEADACHE MAY REPEAT IN 2 HR X 1 IF NEED SOLD: 04/27/2021 [facility] gabapentin 800 MG Oral Tablet GABAPENTIN 12/07/2020 12:00:00 AM EDT ta blet 90 TAKE ONE TABLET BY MOUTH THREE TIMES A DAY TAKE ONE TABLET BY MOUTH THREE TIMES A DAY SOLD: 12/08/2020 [facility] atorvastatin 80 MG Oral Tablet Atorvastatin Calcium 80 MG Atorvastatin Calcium 80 MG 12/06/2020 12:00:00 AM EDT 1.0 {tablet} activ e Atorvastatin Calcium 80 MG eCW1 (Formerly [facility], 1928–1983) atorvastatin 80 MG Oral Tablet Atorvastatin Calcium 80 MG Atorvastatin Calcium 80 MG 12/06/2020 12:00:00 AM EDT 1.0 {tablet} activ e Atorvastatin Calcium 80 MG eCW1 (Formerly [facility], 1928–1983) atorvastatin 80 MG Oral Tablet Atorvastatin Calcium 80 MG Atorvastatin Calcium 80 MG 12/06/2020 12:00:00 AM EDT 1.0 {tablet} activ e Atorvastatin Calcium 80 MG eCW1 (Formerly [facility], 1928–1983) 12 HR Bupropion Hydrochloride 100 MG Ext ended Release Oral Tablet buPROPion HCl ER (SR) 100 MG buPROPion HCl ER (SR) 100 MG 12/06/2020 12:00:00 AM EDT 1.0 {tablet_in_the_morning} active buPROPio n HCl ER (SR) 100 MG eCW1 (Formerly [facility], 1928–1983) 12 HR Bupropion Hydrochloride 100 MG Ext ended Release Oral Tablet buPROPion HCl ER (SR) 100 MG buPROPion HCl ER (SR) 100 MG 12/06/2020 12:00:00 AM EDT 1.0 {tablet_in_the_morning} active buPROPio n HCl ER (SR) 100 MG eCW1 (Formerly [facility], 1928–1983) 12 HR Bupropion Hydrochloride 100 MG Ext ended Release Oral Tablet buPROPion HCl ER (SR) 100 MG buPROPion HCl ER (SR) 100 MG 12/06/2020 12:00:00 AM EDT 1.0 {tablet_in_the_morning} active buPROPio n HCl ER (SR) 100 MG eCW1 (Formerly [facility], 1928–1983) atorvastatin 80 MG Oral Tablet Atorvastatin Calcium 80 MG Atorvastatin Calcium 80 MG 12/06/2020 12:00:00 AM EDT 1.0 {tablet} activ e Atorvastatin Calcium 80 MG eCW1 (Formerly [facility], 1928–1983) atorvastatin 80 MG Oral Tablet Atorvastatin Calcium 80 MG Atorvastatin Calcium 80 MG 12/06/2020 12:00:00 AM EDT 1.0 {tablet} activ e Atorvastatin Calcium 80 MG eCW1 (Formerly [facility], 1928–1983) 12 HR Bupropion Hydrochloride 100 MG Ext ended Release Oral Tablet buPROPion HCl ER (SR) 100 MG buPROPion HCl ER (SR) 100 MG 12/06/2020 12:00:00 AM EDT 1.0 {tablet_in_the_morning} active buPROPio n HCl ER (SR) 100 MG eCW1 (Formerly [facility], 1928–1983) 12 HR Bupropion Hydrochloride 100 MG Ext ended Release Oral Tablet buPROPion (WELLBUTRIN SR) 100 MG 12 hr tablet buPROPion (WELLBUTRIN SR) 100 MG 12 hr tablet 12/06/2020 12:00:00 AM EDT aborted [facility] gabapentin 800 MG Oral Tablet gabapentin (NEURONTIN) 8 00 MG tablet gabapentin (NEURONTIN) 800 MG tablet 12/06/2020 12:00:00 AM EDT 800 mg Oral active Take 800 mg by mouth 3 (three) times a day [facility] atorvastatin 80 MG Oral Tablet atorvastatin (LIPITOR) 80 MG tablet atorvastatin (LIPITOR) 80 MG tablet 12/06/2020 12:00:00 AM EDT 80 mg Oral active Take 80 mg by mouth nightly [facility] Sumatriptan 100 MG Oral Tablet SUMAtriptan (IMITREX) 1 00 MG tablet SUMAtriptan (IMITREX) 100 MG tablet 12/06/2020 12:00:00 AM EDT 100 mg Oral active Take 100 mg by mouth once as needed (at onset of migraine. May repeat dose in 2 hours if needed. MDD : 2 tablets) [facility] albuterol (PROVENTIL HFA;VENTOLIN HFA) 108 (90 Base) M CG/ACT inhaler [id number] 12/06/2020 12:00:00 AM EDT 2 {puff} Inhalation active Inhale 2 puffs every 4 (four) hours as needed for wheezing [facility] 12 HR Bupropion Hydrochloride 100 MG Ext ended Release Oral Tablet buPROPion HCl ER (SR) 100 MG buPROPion HCl ER (SR) 100 MG 12/06/2020 12:00:00 AM EDT 1.0 {tablet_in_the_morning} active buPROPio n HCl ER (SR) 100 MG eCW1 (Formerly [facility], 1928–1983) atorvastatin 80 MG Oral Tablet Atorvastatin Calcium 80 MG Atorvastatin Calcium 80 MG 12/06/2020 12:00:00 AM EDT 1.0 {tablet} activ e Atorvastatin Calcium 80 MG eCW1 (Formerly [facility], 1928–1983) atorvastatin 80 MG Oral Tablet Atorvastatin Calcium 80 MG Atorvastatin Calcium 80 MG 12/06/2020 12:00:00 AM EDT 1.0 {tablet} activ e Atorvastatin Calcium 80 MG eCW1 (Formerly [facility], 1928–1983) 12 HR Bupropion Hydrochloride 100 MG Ext ended Release Oral Tablet BuPROPion HCl ER (SR) 100 MG BuPROPion HCl ER (SR) 100 MG 12/06/2020 12:00:00 AM EDT 1.0 {tablet_in_the_morning} active BuPROPio n HCl ER (SR) 100 MG eCW1 (Formerly [facility], 1928–1983) 12 HR Bupropion Hydrochloride 100 MG Ext ended Release Oral Tablet buPROPion HCl ER (SR) 100 MG buPROPion HCl ER (SR) 100 MG 12/06/2020 12:00:00 AM EDT 1.0 {tablet_in_the_morning} active buPROPio n HCl ER (SR) 100 MG eCW1 (Formerly [facility], 1928–1983) Amitriptyline Hydrochloride 100 MG Oral Tablet amitriptyline (ELAVIL) 100 MG tablet amitriptyline (ELAVIL) 100 MG tablet 11/25/2020 12:00:00 AM EDT 100 mg Oral active Take 100 mg by mouth nightly [facility] 20 mcg/hour 11/21/2020 12:00:00 AM EST patch weekly 4 APPLY ONE PATCH WEEKLY MAXIMUM DAILY DOSE = 1 PATCH PER WEEK APPLY ONE PATCH WEEKLY MAXIMUM DAILY DOS E = 1 PATCH PER WEEK SOLD: 11/21/2020 [facility] 168 HR Buprenorphine 0.02 MG/HR Transdermal Patch Bupr enorphine 20 MCG/HR PTWK Buprenorphine 20 MCG/HR PTWK 11/21/2020 12:00:00 AM EST [address] 20 mcg on the skin every 7 days on Wednesday [facility] 8-2 mg 11/19/2020 12:00:00 AM EST film [address]ACE FOUR FILMS UNDER THE TONGUE EVERY DAY MAXIMUM DAILY DOSE = 4 PLACE FOUR FILMS UNDER THE TONGUE EVERY DAY MAXIMUM DAILY DOSE = 4 SOLD: 11/19/2020 [facility] 2.5 mcg/actuation 11/06/2020 12:00:00 AM EST mist 4 INHALE TWO PUFFS BY MOUTH EVERY DAY INHALE TWO PUFFS BY MOUTH EVERY DAY SOLD: 11/13/2020 [facility] 100 mcg/actuation 11/06/2020 12:00:00 AM EST blister with de vice 60 INHALE ONE PUFF BY MOUTH TWICE A DAY INHALE ONE PUFF BY MOUTH TWICE A DAY SOLD: 02/14/2021 [facility] 100 mcg/actuation 11/06/2020 12:00:00 AM EST blister with de vice 60 INHALE ONE PUFF BY MOUTH TWICE A DAY INHALE ONE PUFF BY MOUTH TWICE A DAY SOLD: 11/13/2020 [facility] SPIRIVA RESPIMAT 2.5 MCG/ACT AERS [id number] 11/06/2020 12:00:00 AM EST 2 {puff} Inhalation active Inhale 2 puffs daily [facility] 28 ACTUAT Fluticasone propionate 0.1 MG/ ACTUAT Dry Powder Inhaler [Flovent] FLOVENT DISKUS 100 MCG/BLIST AEPB FLOVENT DISKUS 100 MCG/BLIST AEPB 11/06/2020 12:00:00 AM EST 1 {puff} Inhalation active Inhale 1 puff 2 (two) times a day [facility] 90 mcg/actuation 11/06/2020 12:00:00 AM EST HFA aerosol inha ler 8 INHALE ONE PUFF BY MOUTH EVERY 4 HOURS NEEDED FOR SHORTNESS OF BREATH INHALE ONE PUFF BY MOUTH EVERY 4 HOURS NEEDED FOR SHORTNESS OF BREATH SOLD: 11/13/2020 [facility] 90 mcg/actuation 11/06/2020 12:00:00 AM EST HFA aerosol inha ler 8 INHALE ONE PUFF BY MOUTH EVERY 4 HOURS NEEDED FOR SHORTNESS OF BREATH INHALE ONE PUFF BY MOUTH EVERY 4 HOURS NEEDED FOR SHORTNESS OF BREATH SOLD: 05/29/2021 [facility] 2.5 mcg/actuation 11/06/2020 12:00:00 AM EST mist 4 INHALE TWO PUFFS BY MOUTH EVERY DAY INHALE TWO PUFFS BY MOUTH EVERY DAY SOLD: 02/14/2021 [facility] 28 ACTUAT Fluticasone propionate 0.1 MG/ ACTUAT Dry Powder Inhaler [Flovent] Flovent Diskus 100 MCG/BLIST Flovent Diskus 100 MCG/BLIST 11/05/2020 12:00:00 AM EST 1.0 {puff} active Flovent Disku s 100 MCG/BLIST eCW1 (Formerly [facility], 1928–1983) Aspirin 81 MG Delayed Release Oral Tablet Aspirin 81 MG 11/05/2020 12:00:00 AM EST 1.0 {tablet} active Aspirin 81 MG eCW1 (Formerly [facility], 1928–1983) Aspirin 81 MG Delayed Release Oral Tablet Aspirin 81 MG 11/05/2020 12:00:00 AM EST 1.0 {tablet} active Aspirin 81 MG eCW1 (Formerly [facility], 1928–1983) Aspirin 81 MG Delayed Release Oral Tablet Aspirin 81 MG 11/05/2020 12:00:00 AM EST 1.0 {tablet} active Aspirin 81 MG eCW1 (Formerly [facility], 1928–1983) Aspirin 81 MG Delayed Release Oral Tablet Aspirin 81 MG 11/05/2020 12:00:00 AM EST 1.0 {tablet} active Aspirin 81 MG eCW1 (Formerly [facility], 1928–1983) Aspirin 81 MG Delayed Release Oral Tablet Aspirin 81 MG 11/05/2020 12:00:00 AM EST 1.0 {tablet} active Aspirin 81 MG eCW1 (Formerly [facility], 1928–1983) 28 ACTUAT Fluticasone propionate 0.1 MG/ ACTUAT Dry Powder Inhaler [Flovent] Flovent Diskus 100 MCG/BLIST Flovent Diskus 100 MCG/BLIST 11/05/2020 12:00:00 AM EST 1.0 {puff} active Flovent Disku s 100 MCG/BLIST eCW1 (Formerly [facility], 1928–1983) 28 ACTUAT tiotropium 0.0025 MG/ACTUAT Me tered Dose Inhaler [Spiriva] Spiriva Respimat 2.5 MCG/ACT Spiriva Respimat 2.5 MCG/ACT 11/05/2020 12:00:00 AM EST 2.0 {puffs} active Spiriva Respimat 2.5 MCG/ACT eCW1 (Formerly [facility], 1928–1983) 28 ACTUAT tiotropium 0.0025 MG/ACTUAT Me tered Dose Inhaler [Spiriva] Spiriva Respimat 2.5 MCG/ACT Spiriva Respimat 2.5 MCG/ACT 11/05/2020 12:00:00 AM EST 2.0 {puffs} active Spiriva Respimat 2.5 MCG/ACT eCW1 (Formerly [facility], 1928–1983) 28 ACTUAT Fluticasone propionate 0.1 MG/ ACTUAT Dry Powder Inhaler [Flovent] Flovent Diskus 100 MCG/BLIST Flovent Diskus 100 MCG/BLIST 11/05/2020 12:00:00 AM EST 1.0 {puff} active Flovent Disku s 100 MCG/BLIST eCW1 (Formerly [facility], 1928–1983) Aspirin 81 MG Delayed Release Oral Tablet Aspirin 81 MG 11/05/2020 12:00:00 AM EST 1.0 {tablet} active Aspirin 81 MG eCW1 (Formerly [facility], 1928–1983) Aspirin 81 MG Delayed Release Oral Tablet Aspirin 81 MG 11/05/2020 12:00:00 AM EST 1.0 {tablet} active Aspirin 81 MG eCW1 (Formerly [facility], 1928–1983) Aspirin 81 MG Delayed Release Oral Tablet Aspirin 81 MG 11/05/2020 12:00:00 AM EST 1.0 {tablet} active Aspirin 81 MG eCW1 (Formerly [facility], 1928–1983) 28 ACTUAT tiotropium 0.0025 MG/ACTUAT Me tered Dose Inhaler [Spiriva] Spiriva Respimat 2.5 MCG/ACT Spiriva Respimat 2.5 MCG/ACT 11/05/2020 12:00:00 AM EST 2.0 {puffs} active Spiriva Respimat 2.5 MCG/ACT eCW1 (Formerly [facility], 1928–1983) 28 ACTUAT tiotropium 0.0025 MG/ACTUAT Me tered Dose Inhaler [Spiriva] Spiriva Respimat 2.5 MCG/ACT Spiriva Respimat 2.5 MCG/ACT 11/05/2020 12:00:00 AM EST 2.0 {puffs} active Spiriva Respimat 2.5 MCG/ACT eCW1 (Formerly [facility], 1928–1983) 28 ACTUAT Fluticasone propionate 0.1 MG/ ACTUAT Dry Powder Inhaler [Flovent] Flovent Diskus 100 MCG/BLIST Flovent Diskus 100 MCG/BLIST 11/05/2020 12:00:00 AM EST 1.0 {puff} active Flovent Disku s 100 MCG/BLIST eCW1 (Formerly [facility], 1928–1983) 20 mcg/hour 10/23/2020 12:00:00 AM EST patch weekly 4 APPLY 1 PATCH WEEKLY MAXIMUM DAILY DOSE = 1 PATCH APPLY 1 PATCH WEEKLY MAXIMUM DAILY DOSE = 1 PATCH SOLD: 10/25/2020 [facility] 8-2 mg 10/22/2020 12:00:00 AM EST film [address]ACE FOUR FILMS UNDER THE TONGUE EVERY DAY MAXIMUM DAILY DOSE = 4 PLACE FOUR FILMS UNDER THE TONGUE EVERY DAY MAXIMUM DAILY DOSE = 4 SOLD: 10/22/2020 [facility] 20 mcg/hour 09/25/2020 12:00:00 AM EST patch weekly 4 APPLY ONE PATCH TO THE SKIN ONCE WEEKLY REMOVE OLD PATCH ON SAME DAY OF APPLICATION MAXIMUM DAILY DOSE = 1 PATCH PER WEEK APPLY ONE PATCH TO THE SKIN ONCE WEEKLY REMOVE OLD PATCH ON SAME DAY OF APPLICATION MAXIMUM DAILY DOSE = 1 PATCH PER WEEK SOLD: 09/26/2020 [facility] 8-2 mg 09/24/2020 12:00:00 AM EST film 112 [address]ACE 4 FILMS UNDER THE TONGUE DAILY MAXIMUM DAILY DOSE = 4 PLACE 4 FILMS UNDER THE TONGUE DAILY MAX IMUM DAILY DOSE = 4 SOLD: 09/24/2020 [facility] 8-2 mg 08/27/2020 12:00:00 AM EST film [address] FOUR FILMS UNDER THE TONGUE EVERY DAY MAXIMUM DAILY DOSE = 4 PLACE FOUR FILMS UNDER THE TONGUE EVERY DAY MAXIMUM DAILY DOSE = 4 SOLD: 08/27/2020 [facility] 20 mcg/hour 08/27/2020 12:00:00 AM EST patch weekly 4 APPLY 1 PATCH TO THE SKIN ONCE WEEKLY REMOVE OLD PATCH ON SAME DAY OF APPLICATION MAXIMUM DAILY DOSE = 1 APPLY 1 PATCH TO THE SKIN ONCE WEEKLY RE MOVE OLD PATCH ON SAME DAY OF APPLICATION MAXIMUM DAILY DOSE = 1 SOLD: 08/27/2020 [facility] 100 mg 08/19/2020 12:00:00 AM EST tablet 20 TAKE 1 TABLET BY MOUTH NEEDED FOR HEADACHE, MAY REPEAT ONCE IN 2 HOURS, MAXIMUM DAILY DOSE = 2 TABLETS TAKE 1 TABLET BY MOUTH NEEDED FOR HEADACHE, MAY REPEAT ONCE IN 2 HOURS, MAXIMUM DAILY DOSE = 2 TABLETS SOLD: 11/13/2020 [facility] 100 mg 08/19/2020 12:00:00 AM EST tablet 20 TAKE 1 TABLET BY MOUTH NEEDED FOR HEADACHE, MAY REPEAT ONCE IN 2 HOURS, MAXIMUM DAILY DOSE = 2 TABLETS TAKE 1 TABLET BY MOUTH NEEDED FOR HEADACHE, MAY REPEAT ONCE IN 2 HOURS, MAXIMUM DAILY DOSE = 2 TABLETS SOLD: 09/15/2020 [facility] 100 mg 08/19/2020 12:00:00 AM EST tablet 20 TAKE 1 TABLET BY MOUTH NEEDED FOR HEADACHE, MAY REPEAT ONCE IN 2 HOURS, MAXIMUM DAILY DOSE = 2 TABLETS TAKE 1 TABLET BY MOUTH NEEDED FOR HEADACHE, MAY REPEAT ONCE IN 2 HOURS, MAXIMUM DAILY DOSE = 2 TABLETS SOLD: 10/12/2020 [facility] 8-2 mg 07/30/2020 12:00:00 AM EST film 112 DISSOLVE FOUR FILMS UNDER THE TONGUE EVERY DAY, MAXIMUM DAILY DOSE = 4 FILMS DISSOLVE FOUR FILMS UNDER THE TONGUE EVERY DAY, MAXIMUM DAILY DOSE = 4 FILMS SOLD: 07/30/2020 [facility] 20 mcg/hour 07/24/2020 12:00:00 AM EST patch weekly 4 APPLY 1 PATCH TO SKIN ONCE WEEKLY, MAX OF 1 PATCH PER WEEK APPLY 1 PATCH TO SKIN ONCE WEEKLY, MAX O F 1 PATCH PER WEEK SOLD: 07/27/2020 [facility] 8-2 mg 07/02/2020 12:00:00 AM EDT film 112 DISSOLVE 4 FILMS UNDER THE TONGUE ONCE DAILY, MAXIMUM DAILY DOSE = 4 FILMS DISSOLVE 4 FILMS UNDER THE TONGUE ONCE DAILY, MAXIMUM DAILY DOSE = 4 FILMS SOLD: 07/02/2020 [facility] 100 mg 06/26/2020 12:00:00 AM EDT tablet 30 TAKE ONE TABLET BY MOUTH EVERY DAY TAKE ONE TABLET BY MOUTH EVERY DAY SOLD: 10/25/2020 [facility] 100 mg 06/26/2020 12:00:00 AM EDT tablet 30 TAKE ONE TABLET BY MOUTH EVERY DAY TAKE ONE TABLET BY MOUTH EVERY DAY SOLD: 09/26/2020 [facility] 100 mg 06/26/2020 12:00:00 AM EDT tablet 30 TAKE ONE TABLET BY MOUTH EVERY DAY TAKE ONE TABLET BY MOUTH EVERY DAY SOLD: 06/27/2020 [facility] 100 mg 06/26/2020 12:00:00 AM EDT tablet 30 TAKE ONE TABLET BY MOUTH EVERY DAY TAKE ONE TABLET BY MOUTH EVERY DAY SOLD: 07/28/2020 [facility] 100 mg 06/26/2020 12:00:00 AM EDT tablet 30 TAKE ONE TABLET BY MOUTH EVERY DAY TAKE ONE TABLET BY MOUTH EVERY DAY SOLD: 08/27/2020 [facility] gabapentin 800 MG Oral Tablet GABAPENTIN 06/26/2020 12:00:00 AM EDT ta blet 90 TAKE ONE TABLET BY MOUTH THREE TIMES A DAY TAKE ONE TABLET BY MOUTH THREE TIMES A DAY SOLD: 11/13/2020 [facility] gabapentin 800 MG Oral Tablet GABAPENTIN 06/26/2020 12:00:00 AM EDT ta blet 90 TAKE ONE TABLET BY MOUTH THREE TIMES A DAY TAKE ONE TABLET BY MOUTH THREE TIMES A DAY SOLD: 06/27/2020 [facility] gabapentin 800 MG Oral Tablet GABAPENTIN 06/26/2020 12:00:00 AM EDT ta blet 90 TAKE ONE TABLET BY MOUTH THREE TIMES A DAY TAKE ONE TABLET BY MOUTH THREE TIMES A DAY SOLD: 07/27/2020 [facility] gabapentin 800 MG Oral Tablet GABAPENTIN 06/26/2020 12:00:00 AM EDT ta blet 90 TAKE ONE TABLET BY MOUTH THREE TIMES A DAY TAKE ONE TABLET BY MOUTH THREE TIMES A DAY SOLD: 09/18/2020 [facility] 100 mg 06/26/2020 12:00:00 AM EDT tablet 30 TAKE ONE TABLET BY MOUTH EVERY DAY TAKE ONE TABLET BY MOUTH EVERY DAY SOLD: 11/25/2020 [facility] gabapentin 800 MG Oral Tablet GABAPENTIN 06/26/2020 12:00:00 AM EDT ta blet 90 TAKE ONE TABLET BY MOUTH THREE TIMES A DAY TAKE ONE TABLET BY MOUTH THREE TIMES A DAY SOLD: 10/13/2020 [facility] 20 mcg/hour 06/25/2020 12:00:00 AM EDT patch weekly 4 APPLY 1 PATCH WEEKLY * MAX DOSE = 1 PATCH PER WEEK APPLY 1 PATCH WEEKLY * MAX DOSE = 1 PATCH PER WEEK SOLD: 06/27/2020 [facility] 8-2 mg 06/05/2020 12:00:00 AM EDT film [address] PLACE FOUR FILMS UNDER THE TONGUE EVERY DAY * MAXIMUM DAILY DOSE = 4 PLACE FOUR FILMS UNDER THE TONGUE EVERY DAY * MAXIMUM DAILY DOSE = 4 SOLD: 06/05/2020 [facility] 20 mcg/hour 05/17/2020 12:00:00 AM EDT patch weekly 4 APPLY 1 PATCH WEEKLY MAXIMUM DAILY DOSE = 1 APPLY 1 PATCH WEEKLY MAXIMUM DAILY DOSE = 1 SOLD: 05/29/2020 [facility] 8-2 mg 05/08/2020 12:00:00 AM EDT film [address] FOUR FILMS UNDER THE TONGUE EVERY DAY MAXIMUM DAILY DOSE = 4 PLACE FOUR FILMS UNDER THE TONGUE EVERY DAY MAXIMUM DAILY DOSE = 4 SOLD: 05/08/2020 [facility] 100 mg 04/11/2020 12:00:00 AM EDT tablet 20 TAKE ONE TABLET BY MOUTH NEEDED FOR HEADACHE, MAY REPEAT ONCE IN 2 HOURS DIRECTED TAKE ONE TABLET BY MOUTH NEEDED FOR HEADACHE, MAY REPEAT ONCE IN 2 HOURS DIRECTED SOLD: 07/27/2020 [facility] 100 mg 04/11/2020 12:00:00 AM EDT tablet 20 TAKE ONE TABLET BY MOUTH NEEDED FOR HEADACHE, MAY REPEAT ONCE IN 2 HOURS DIRECTED TAKE ONE TABLET BY MOUTH NEEDED FOR HEADACHE, MAY REPEAT ONCE IN 2 HOURS DIRECTED SOLD: 06/17/2020 [facility] 100 mg 04/11/2020 12:00:00 AM EDT tablet 20 TAKE ONE TABLET BY MOUTH NEEDED FOR HEADACHE, MAY REPEAT ONCE IN 2 HOURS DIRECTED TAKE ONE TABLET BY MOUTH NEEDED FOR HEADACHE, MAY REPEAT ONCE IN 2 HOURS DIRECTED SOLD: 05/08/2020 [facility] gabapentin 800 MG Oral Tablet GABAPENTIN 03/26/2020 12:00:00 AM EDT ta blet 90 TAKE ONE TABLET BY MOUTH THREE TIMES A DAY TAKE ONE TABLET BY MOUTH THREE TIMES A DAY SOLD: 05/29/2020 [facility] 100 mg 12/14/2019 12:00:00 AM EDT tablet 30 TAKE ONE TABLET BY MOUTH EVERY DAY TAKE ONE TABLET BY MOUTH EVERY DAY SOLD: 05/29/2020 [facility] Ibuprofen 200 MG Oral Tablet ibuprofen (ADVIL,MOTRIN) 200 MG tablet ibuprofen (ADVIL,MOTRIN) 200 MG tablet 200 mg Oral aborted Take 200 mg by mouth every 8 (eight) hours as needed [facility] Hydrocodone Bitartrate 10 MG / Ibuprofen 200 MG Oral Tablet HYDROcodone- Ibuprofen 10-200 MG TABS HYDROcodone-Ibuprofen 10-200 MG TABS 1 {tbl} Oral aborted Take 1 tablet by mouth 4 (four) times a day as needed (for pain) [facility] Insurance Providers Payer name Policy type / Coverage type Policy ID Covered libertarian ID Covered libertarian's relationship to pedro Policy Pedro Plan Information [facility] () Workers Compensation [id number] Self [id number] [facility] Part B [id number] Self [id number] [facility] () Workers Compensation [id number] Self 6 [id number] [employer] ([employer]) () Workers Compensation [id number] Self [id number] [facility] () Workers Compensation [id number] Self 6 [id number] MEDICARE [id number] A MEDICARE [id number] Eugenia [id number] MEDICARE [id number] MEDICARE [id number] Eugenia [id number] [employer] MEDICARE [id number] Eugenia [id number] HUMANA [id number] xxxxxxxxx [id number] HUMANA [id number] Eugenia [id number] HUMANA [id number] Eugenia [id number] [employer] MEDICARE [id number] Eugenia [id number] [employer] MEDICARE [id number] xxxxxxxxx [phone] INSURANCE COVID-19 COVID Eugenia C OVID INSURANCE COVID-19 COVID Eugenia C OVID INSURANCE COVID-19 [id number] xOVID 2 [id number] INSURANCE COVID-19 [id number] xOVID 2 [id number] INSURANCE COVID-19 COVID Eugenia C OVID INSURANCE COVID-19 COVID Eugenia C OVID ANSI-Medicare Part B [id number] ANSI-Medicare Part B [id number] ANSI-Medicare Part B [id number] ANSI-Medicare Part B [id number] ANSI-Medicare Part B [id number] ANSI-Medicare Part B [id number] ANSI-Medicare Part B [id number] ANSI-Medicare Part B [id number] ANSI-Medicare Part B [id number] ANSI-Medicare Part B [id number] ANSI-Medicare Part B [id number] MEDICARE C [id number] S [id number] A HUMANA GOLD [id number] SP [id number] Medicare Medicare Primary [id number] Self HUMANA GOLD [id number] SP [id number] MEDICARE [id number] SP [id number] A [employer]MANA PPO [id number] SP [id number] MEDICARE [id number] SP [id number] [facility] INSURANCE FUND [id number] SP [id number] ANSI-Commercial [id number] ANSI-Medicare Part B [id number] ANSI-Commercial [id number] ANSI-Medicare Part B [id number] ANSI-Medicare Part B [id number] ANSI-Commercial [id number] Medicare [place] [id number] Self 3 [id number] ANSI-Commercial [id number] ANSI-Medicare Part B [id number] ANSI-Medicare Part B [id number] ANSI-Medicare Part B [id number] ANSI-Medicare Part B [id number] ANSI-Medicare Part B [id number] ANSI-Medicare Part B [id number] ANSI-Medicare Part B [id number] ANSI-Medicare Part B [id number] Problems, Conditions, and Diagnoses Code Display Name Description Problem Type Effective Dates Data Source(s) Z95.0 Presence of cardiac pacemaker Presence of cardiac pace maker Diagnosis 04/28/2021 02:44:50 PM EDT [facility] R09.89 Other specified symptoms and signs involving the circulatory and respiratory systems Other specified symptoms and signs invol Diagnosis 04/28/2021 02:44:50 PM EDT [facility] F17.200 Nicotine dependence, unspecified, uncomp licated Nicotine dependence, unspecified, uncomp Diagnosis 04/28/2021 02:44:50 PM EDT [facility] E78.00 Pure hypercholesterolemia, unspecified P ure hypercholesterolemia, unspecified Diagnosis 04/28/2021 02:44:50 PM EDT [facility] Z95.2 Presence of prosthetic heart valve Presence of p rosthetic heart valve Diagnosis 04/28/2021 02:44:50 PM EDT [facility] 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 Rheumatic mitral insuff iciency Diagnosis 04/17/2021 05:18:00 AM EDT [facility] U07.1 COVID-19 COVID-19 Diagnosis 04/14/2021 08:25:17 AM ED T [facility] 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 Rheumatic mitral stenosis with insuffici Diagnosis 04/07/2021 02:12:35 PM EDT [facility] Practices I73.9 Peripheral vascular disease, unspecified Peripheral vascular disease, unspecified Diagnosis 01/13/2021 01:57:32 PM EDT [facility] 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 Rheumatic mitral stenosis with insuffici Diagnosis 01/13/2021 01:57:32 PM EDT [facility] R06.02 Shortness of breath Shortness of breath Diagnosis 0 01/06/2021 02:29:51 PM EDT [facility] Z95.2 [id number] H/O mitral valve replacement with mecha nical valve Problem 06/19/2021 12:00:00 AM EDT eCW (Formerly [facility], 1928–1983) I48.3 [id number] Typical atrial flutter Problem 06/19/2021 12 :00:00 AM EDT eCW1 (Formerly [facility], [facility]–1983) Z95.0 [id number] Pacemaker Problem 06/19/2021 12:00:00 AM ED T eCW1 (Formerly [facility], [facility]–1983) Z95.0 Permanent cardiac pacemaker Permanent cardiac pacemake r [id number] 04/28/2021 12:00:00 AM EDT [facility] Z95.2 Mitral valve replacement Mitral valve replacement 6457 200004/26/2021 12:00:00 AM EDT [facility] I05.1 Rheumatic mitral regurgitation Rheumatic mitral regurg itation [id number] 12/09/2020 12:00:00 AM EDT [facility] R09.89 Right carotid bruit Right carotid bruit [id number] 0 12/09/2020 12:00:00 AM EDT [facility] F17.200 Smoker Smoker [id number] 12/09/2020 12:00:00 AM ED T [facility] E78.00 Hypercholesterolemia Hypercholesterolemia [id number] 12/09/2020 12:00:00 AM EDT [facility] I73.9 Peripheral vascular disease Peripheral vascular diseas e [id number] 12/09/2020 12:00:00 AM EDT [facility] R06.02 Shortness of breath Shortness of breath [id number] 0 12/09/2020 12:00:00 AM EDT [facility] 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 Rheumatic mitral stenosis with insufficiency [id number] 12/09/2020 12:00:00 AM EDT [facility] N20.0 [id number] Kidney stones Problem 12/06/2020 12:00:00 AM EDT eCW1 (Formerly [facility], [facility]–1983) E78.5 [id number] Acquired hyperlipoproteinemia Problem 2020 12:00:00 AM EDT eCW1 (Formerly [facility], [facility]–1983) I05.2 [id number] Mitral stenosis with insufficiency, rheum atic Problem 12/06/2020 12:00:00 AM EDT eCW1 (Formerly [facility], [facility]–1983) I73.9 [id number] Claudication of both lower extremities Pr oblem 11/05/2020 12:00:00 AM EST eCW1 (Formerly [facility], [facility]–1983) Z00.00 [id number] Medicare annual wellness visit, subsequen t Problem 11/05/2020 12:00:00 AM EST eCW1 (Formerly [facility], [facility]–1983) I73.9 Peripheral vascular disease PAD (peripheral artery dis ease) Problem 11/05/2020 12:00:00 AM EST eCW1 (Formerly [facility], [facility]–1983) Surgeries/Procedures Procedure Description Date Indications Data Source(s) ECG ROUTINE ECG W/LEAST 12 LDS W/I&R 06/19/2021 12:00: 00 AM EDT eCW1 (Formerly [facility], [facility]–1983) POCT AMB EKG <td>POCT AMB EKG</td><td>[place]</td><td>04/28/2021 3:53 PM EDT</td><td> Mitral valve replacement</td><td> </td> 04/28/2021 03:53:00 PM EDT Mitral valve replacement [facility] Mitral valve replacement XR CHEST PORTABLE <td>XR CHEST PORTABLE</td><t d>Pending Discharge</td><td>04/23/2021 5:03 PM EDT</td><td></td><td> </td> 04/23/2021 05:03:06 PM EDT [facility] XR CHEST PA AND LATERAL <td>XR CHEST PA AND LATERAL</td><td>Timed</td><td>04/23/2021 1:39 PM EDT</td><td></td><td> </td> 04/23/2021 01:39:13 PM EDT [facility] PROTHROMBIN TIME <td>PROTIME-INR</td><td>Rout ine</td><td>04/23/2021 12:12 PM EDT</td><td></td><td> </td> 04/23/2021 12:12:00 PM EDT [facility] BLOOD COUNT COMPLETE AUTOMATED <td>CBC</td><td>Timed</ td><td>04/23/2021 12:12 PM EDT</td><td></td><td> </td> 04/23/2021 12:12:00 PM EDT [facility] MAGNESIUM <td>MAGNESIUM</td><td>Timed< /td><td>04/23/2021 12:12 PM EDT</td><td></td><td> </td> 04/23/2021 12:12:00 PM EDT [facility] BASIC METABOLIC PANEL CALCIUM TOTAL <td>BASIC METABOLI C PANEL</td><td>Timed</td><td>04/23/2021 12:12 PM EDT</td><td></td><td> </td> 04/23/2021 12:12:00 PM EDT [facility] XR CHEST PA AND LATERAL <td>XR CHEST PA AND LATERAL</td><td>Routine</td><td>04/23/2021 8:01 AM EDT</td><td></td><td> </td> 04/23/2021 08:01:02 AM EDT [facility] ECG ROUTINE ECG W/LEAST 12 LDS TRCG ONLY W/O I&R <td>E CG 12- LEAD</td><td>Routine</td><td>04/23/2021 5:45 AM EDT</td><td></td><td></td> 04/23/2021 05:45:32 AM EDT [facility] XR CHEST PORTABLE <td>XR CHEST PORTABLE</td><t d>STAT</td><td>04/22/2021 6:39 PM EDT</td><td></td><td> </td> 04/22/2021 06:39:00 PM EDT [facility] FLUOROSCOPY SPX <1 HOUR PHYSICIAN TIME <td>XR FLUORO P ACEMAKER INSERT</td><td>STAT</td><td>04/22/2021 6:10 PM EDT</td><td></td><td> </td> 04/22/2021 06:10:22 PM EDT [facility] INSERTION, CARDIAC PACEMAKER, BIVENTRICULAR <td>INSERT ION, CARDIAC PACEMAKER, BIVENTRICULAR</td><td></td><td>04/22/2021 5:13 PM EDT</td><td> COMPLETE HEART BLOCK</td><td></td> 04/22/2021 05:13:00 PM EDT - 04/22/2021 06:45:00 PM EDT [facility] BLOOD TYPING ABO <td>TYPE AND SCREEN</td><td> Routine</td><td>04/22/2021 4:09 PM EDT</td><td></td><td> </td> 04/22/2021 04:09:00 PM EDT [facility] COVID/FLU AB/RSV PCR <td>COVID/FLU AB/RSV PCR</td ><td>STAT</td><td>04/22/2021 1:55 PM EDT</td><td></td><td> </td> 04/22/2021 01:55:00 PM EDT [facility] POTASSIUM SERUM PLASMA/WHOLE BLOOD <td>POTASSIUM</td>< td>STAT</td><td>04/22/2021 8:51 AM EDT</td><td></td><td> </td> 04/22/2021 08:51:00 AM EDT [facility] XR CHEST PORTABLE <td>XR CHEST PORTABLE</td><t d>Timed</td><td>04/22/2021 7:05 AM EDT</td><td></td><td> </td> 04/22/2021 07:05:10 AM EDT [facility] BLOOD COUNT COMPLETE AUTOMATED <td>CBC</td><td>Routine </td><td>04/22/2021 3:16 AM EDT</td><td></td><td> </td> 04/22/2021 03:16:00 AM EDT [facility] MAGNESIUM <td>MAGNESIUM</td><td>Routin e</td><td>04/22/2021 3:16 AM EDT</td><td></td><td> </td> 04/22/2021 03:16:00 AM EDT [facility] BASIC METABOLIC PANEL CALCIUM TOTAL <td>BASIC METABOLI C PANEL</td><td>Routine</td><td>04/22/2021 3:16 AM EDT</td><td></td><td> </td> 04/22/2021 03:16:00 AM EDT [facility] PROTHROMBIN TIME <td>PROTIME-INR</td><td>Rout ine</td><td>04/22/2021 3:09 AM EDT</td><td></td><td> </td> 04/22/2021 03:09:00 AM EDT [facility] PROTHROMBIN TIME <td>PROTIME-INR</td><td>Rout ine</td><td>04/21/2021 2:44 AM EDT</td><td></td><td> </td> 04/21/2021 02:44:00 AM EDT [facility] BLOOD COUNT COMPLETE AUTOMATED <td>CBC</td><td>Routine </td><td>04/21/2021 2:44 AM EDT</td><td></td><td> </td> 04/21/2021 02:44:00 AM EDT [facility] BASIC METABOLIC PANEL CALCIUM TOTAL <td>BASIC METABOLI C PANEL</td><td>Routine</td><td>04/21/2021 2:44 AM EDT</td><td></td><td> </td> 04/21/2021 02:44:00 AM EDT [facility] XR CHEST PORTABLE <td>XR CHEST PORTABLE</td><t d>Timed</td><td>04/20/2021 11:57 AM EDT</td><td></td><td> </td> 04/20/2021 11:57:44 AM EDT [facility] POTASSIUM SERUM PLASMA/WHOLE BLOOD <td>POTASSIUM</td><td>Routine</td><td>04/20/2021 11:12 AM EDT</td><td></td><td> </td> 04/20/2021 11:12:00 AM EDT [facility] GLUC BLD GLUC MNTR DEV CLEARED FDA SPEC HOME USE <td>P OCT GLUCOSE</td><td>Routine</td><td>04/20/2021 7:53 AM EDT</td><td></td><td> </td> 04/20/2021 07:53:00 AM EDT [facility] POTASSIUM SERUM PLASMA/WHOLE BLOOD <td>POTASSIUM</td>< td>STAT</td><td>04/20/2021 7:29 AM EDT</td><td></td><td> </td> 04/20/2021 07:29:00 AM EDT [facility] HEPATIC FUNCTION PANEL <td>HEPATIC FUNCTION PANEL</ td><td>Add- On</td><td>04/20/2021 7:29 AM EDT</td><td></td><td> </td> 04/20/2021 07:29:00 AM EDT [facility] PROTHROMBIN TIME <td>PROTIME-INR</td><td>Time d</td><td>04/20/2021 2:26 AM EDT</td><td></td><td> </td> 04/20/2021 02:26:00 AM EDT [facility] BLOOD COUNT COMPLETE AUTOMATED <td>CBC</td><td>Timed</ td><td>04/20/2021 2:26 AM EDT</td><td></td><td> </td> 04/20/2021 02:26:00 AM EDT [facility] MAGNESIUM <td>MAGNESIUM</td><td>Timed< /td><td>04/20/2021 2:26 AM EDT</td><td></td><td> </td> 04/20/2021 02:26:00 AM EDT [facility] CALCIUM IONIZED <td>CALCIUM, IONIZED</td><td >Timed</td><td>04/20/2021 2:26 AM EDT</td><td></td><td> </td> 04/20/2021 02:26:00 AM EDT [facility] BASIC METABOLIC PANEL CALCIUM TOTAL <td>BASIC METABOLI C PANEL</td><td>Timed</td><td>04/20/2021 2:26 AM EDT</td><td></td><td> </td> 04/20/2021 02:26:00 AM EDT [facility] GLUC BLD GLUC MNTR DEV CLEARED FDA SPEC HOME USE <td>P OCT GLUCOSE</td><td>Routine</td><td>04/19/2021 5:56 PM EDT</td><td></td><td> </td> 04/19/2021 05:56:00 PM EDT [facility] XR CHEST PORTABLE <td>XR CHEST PORTABLE</td><t d>Timed</td><td>04/19/2021 1:24 PM EDT</td><td></td><td> </td> 04/19/2021 01:24:15 PM EDT [facility] GLUC BLD GLUC MNTR DEV CLEARED FDA SPEC HOME USE <td>P OCT GLUCOSE</td><td>Routine</td><td>04/19/2021 1:00 PM EDT</td><td></td><td> </td> 04/19/2021 01:00:00 PM EDT [facility] GLUC BLD GLUC MNTR DEV CLEARED FDA SPEC HOME USE <td>P OCT GLUCOSE</td><td>Routine</td><td>04/19/2021 8:24 AM EDT</td><td></td><td> </td> 04/19/2021 08:24:00 AM EDT [facility] BASIC METABOLIC PANEL CALCIUM TOTAL <td>BASIC METABOLI C PANEL</td><td>Timed</td><td>04/19/2021 2:18 AM EDT</td><td></td><td> </td> 04/19/2021 02:18:00 AM EDT [facility] PROTHROMBIN TIME <td>PROTIME-INR</td><td>Time d</td><td>04/19/2021 2:18 AM EDT</td><td></td><td> </td> 04/19/2021 02:18:00 AM EDT [facility] BLOOD COUNT COMPLETE AUTOMATED <td>CBC</td><td>Timed</ td><td>04/19/2021 2:18 AM EDT</td><td></td><td> </td> 04/19/2021 02:18:00 AM EDT [facility] MAGNESIUM <td>MAGNESIUM</td><td>Timed< /td><td>04/19/2021 2:18 AM EDT</td><td></td><td> </td> 04/19/2021 02:18:00 AM EDT [facility] CALCIUM IONIZED <td>CALCIUM, IONIZED</td><td >Timed</td><td>04/19/2021 2:18 AM EDT</td><td></td><td> </td> 04/19/2021 02:18:00 AM EDT [facility] GLUC BLD GLUC MNTR DEV CLEARED FDA SPEC HOME USE <td>P OCT GLUCOSE</td><td>Routine</td><td>04/18/2021 6:40 PM EDT</td><td></td><td> </td> 04/18/2021 06:40:00 PM EDT [facility] GLUC BLD GLUC MNTR DEV CLEARED FDA SPEC HOME USE <td>P OCT GLUCOSE</td><td>Routine</td><td>04/18/2021 12:40 PM EDT</td><td></td><td> </td> 04/18/2021 12:40:00 PM EDT [facility] GLUC BLD GLUC MNTR DEV CLEARED FDA SPEC HOME USE <td>P OCT GLUCOSE</td><td>Routine</td><td>04/18/2021 9:44 AM EDT</td><td></td><td> </td> 04/18/2021 09:44:00 AM EDT [facility] POTASSIUM SERUM PLASMA/WHOLE BLOOD <td>POTASSIUM</td><td>Routine</td><td>04/18/2021 9:40 AM EDT</td><td></td><td> </td> 04/18/2021 09:40:00 AM EDT [facility] MAGNESIUM <td>MAGNESIUM</td><td>Routin e</td><td>04/18/2021 9:40 AM EDT</td><td></td><td> </td> 04/18/2021 09:40:00 AM EDT [facility] GLUC BLD GLUC MNTR DEV CLEARED FDA SPEC HOME USE <td>P OCT GLUCOSE</td><td>Routine</td><td>04/18/2021 6:07 AM EDT</td><td></td><td> </td> 04/18/2021 06:07:00 AM EDT [facility] GLUC BLD GLUC MNTR DEV CLEARED FDA SPEC HOME USE <td>P OCT GLUCOSE</td><td>Routine</td><td>04/18/2021 3:04 AM EDT</td><td></td><td> </td> 04/18/2021 03:04:00 AM EDT [facility] PROTHROMBIN TIME <td>PROTIME-INR</td><td>Time d</td><td>04/18/2021 3:00 AM EDT</td><td></td><td> </td> 04/18/2021 03:00:00 AM EDT [facility] BLOOD COUNT COMPLETE AUTOMATED <td>CBC</td><td>Timed</ td><td>04/18/2021 3:00 AM EDT</td><td></td><td> </td> 04/18/2021 03:00:00 AM EDT [facility] MAGNESIUM <td>MAGNESIUM</td><td>Timed< /td><td>04/18/2021 3:00 AM EDT</td><td></td><td> </td> 04/18/2021 03:00:00 AM EDT [facility] CALCIUM IONIZED <td>CALCIUM, IONIZED</td><td >Timed</td><td>04/18/2021 3:00 AM EDT</td><td></td><td> </td> 04/18/2021 03:00:00 AM EDT [facility] BASIC METABOLIC PANEL CALCIUM TOTAL <td>BASIC METABOLI C PANEL</td><td>Timed</td><td>04/18/2021 3:00 AM EDT</td><td></td><td> </td> 04/18/2021 03:00:00 AM EDT [facility] GLUC BLD GLUC MNTR DEV CLEARED FDA SPEC HOME USE <td>P OCT GLUCOSE</td><td>Routine</td><td>04/18/2021 12:29 AM EDT</td><td></td><td> </td> 04/18/2021 12:29:00 AM EDT [facility] GLUC BLD GLUC MNTR DEV CLEARED FDA SPEC HOME USE <td>P OCT GLUCOSE</td><td>Routine</td><td>04/17/2021 10:02 PM EDT</td><td></td><td> </td> 04/17/2021 10:02:00 PM EDT [facility] BLOOD COUNT COMPLETE AUTOMATED <td>CBC</td><td>STAT</t d><td>04/17/2021 9:03 PM EDT</td><td></td><td> </td> 04/17/2021 09:03:00 PM EDT [facility] POTASSIUM SERUM PLASMA/WHOLE BLOOD <td>POTASSIUM</td><td>Routine</td><td>04/17/2021 9:03 PM EDT</td><td></td><td> </td> 04/17/2021 09:03:00 PM EDT [facility] GLUC BLD GLUC MNTR DEV CLEARED FDA SPEC HOME USE <td>P OCT GLUCOSE</td><td>Routine</td><td>04/17/2021 7:57 PM EDT</td><td></td><td> </td> 04/17/2021 07:57:00 PM EDT [facility] GLUC BLD GLUC MNTR DEV CLEARED FDA SPEC HOME USE <td>P OCT GLUCOSE</td><td>Routine</td><td>04/17/2021 5:57 PM EDT</td><td></td><td> </td> 04/17/2021 05:57:00 PM EDT [facility] POC ARTERIAL BLOOD GAS <td>POC ARTERIAL BLOOD GAS</td><td>Routine</td><td>04/17/2021 5:18 PM EDT</td><td></td><td> </td> 04/17/2021 05:18:00 PM EDT [facility] GLUC BLD GLUC MNTR DEV CLEARED FDA SPEC HOME USE <td>P OCT GLUCOSE</td><td>Routine</td><td>04/17/2021 4:00 PM EDT</td><td></td><td> </td> 04/17/2021 04:00:00 PM EDT [facility] POTASSIUM SERUM PLASMA/WHOLE BLOOD <td>POTASSIUM</td>< td>STAT</td><td>04/17/2021 3:58 PM EDT</td><td></td><td> </td> 04/17/2021 03:58:00 PM EDT [facility] GLUC BLD GLUC MNTR DEV CLEARED FDA SPEC HOME USE <td>P OCT GLUCOSE</td><td>Routine</td><td>04/17/2021 2:28 PM EDT</td><td></td><td> </td> 04/17/2021 02:28:00 PM EDT [facility] GLUC BLD GLUC MNTR DEV CLEARED FDA SPEC HOME USE <td>P OCT GLUCOSE</td><td>Routine</td><td>04/17/2021 1:31 PM EDT</td><td></td><td> </td> 04/17/2021 01:31:00 PM EDT [facility] GLUC BLD GLUC MNTR DEV CLEARED FDA SPEC HOME USE <td>P OCT GLUCOSE</td><td>Routine</td><td>04/17/2021 12:30 PM EDT</td><td></td><td> </td> 04/17/2021 12:30:00 PM EDT [facility] POC CALCIUM BG <td>POC CALCIUM BG</td><td>R outine</td><td>04/17/2021 11:58 AM EDT</td><td></td><td> </td> 04/17/2021 11:58:00 AM EDT [facility] POC ARTERIAL BLOOD GAS <td>POC ARTERIAL BLOOD GAS</td><td>Routine</td><td>04/17/2021 11:52 AM EDT</td><td></td><td> </td> 04/17/2021 11:52:00 AM EDT [facility] XR CHEST PORTABLE <td>XR CHEST PORTABLE</td><t d>STAT</td><td>04/17/2021 11:45 AM EDT</td><td></td><td> </td> 04/17/2021 11:45:26 AM EDT [facility] ECG ROUTINE ECG W/LEAST 12 LDS TRCG ONLY W/O I&R <td>E CG 12- LEAD</td><td>Routine</td><td>04/17/2021 11:19 AM EDT</td><td></td><td></td> 04/17/2021 11:19:23 AM EDT [facility] GLUC BLD GLUC MNTR DEV CLEARED FDA SPEC HOME USE <td>P OCT GLUCOSE</td><td>Routine</td><td>04/17/2021 11:18 AM EDT</td><td></td><td> </td> 04/17/2021 11:18:00 AM EDT [facility] BLOOD COUNT COMPLETE AUTOMATED <td>CBC</td><td>STAT</t d><td>04/17/2021 11:16 AM EDT</td><td></td><td> </td> 04/17/2021 11:16:00 AM EDT [facility] MAGNESIUM <td>MAGNESIUM</td><td>STAT</ td><td>04/17/2021 11:16 AM EDT</td><td></td><td> </td> 04/17/2021 11:16:00 AM EDT [facility] CALCIUM IONIZED <td>CALCIUM, IONIZED</td><td >STAT</td><td>04/17/2021 11:16 AM EDT</td><td></td><td> </td> 04/17/2021 11:16:00 AM EDT [facility] BASIC METABOLIC PANEL CALCIUM TOTAL <td>BASIC METABOLI C PANEL</td><td>STAT</td><td>04/17/2021 11:16 AM EDT</td><td></td><td> </td> 04/17/2021 11:16:00 AM EDT [facility] POC ARTERIAL BLOOD GAS W LYTES <td>POC ARTERIAL BLOOD GAS W LYTES</td><td>Routine</td><td>04/17/2021 10:35 AM EDT</td><td></td><td> </td> 04/17/2021 10:35:00 AM EDT [facility] POC ACT <td>POC ACT</td><td>Routine< /td><td>04/17/2021 10:34 AM EDT</td><td></td><td> </td> 04/17/2021 10:34:00 AM EDT [facility] THROMBOPLASTIN TIME PARTIAL PLASMA/WHOLE BLOOD <td>APTT</td><td>Routine</td><td>04/17/2021 10:32 AM EDT</td><td></td><td> </td> 04/17/2021 10:32:00 AM EDT [facility] PROTHROMBIN TIME <td>PROTIME-INR</td><td>Rout ine</td><td>04/17/2021 10:32 AM EDT</td><td></td><td> </td> 04/17/2021 10:32:00 AM EDT [facility] POC ARTERIAL BLOOD GAS W LYTES <td>POC ARTERIAL BLOOD GAS W LYTES</td><td>Routine</td><td>04/17/2021 9:45 AM EDT</td><td></td><td> </td> 04/17/2021 09:45:00 AM EDT [facility] POC VENOUS BLOOD GAS W LYTES <td>POC VENOUS BLOOD GAS W LYTES</td><td>Routine</td><td>04/17/2021 9:41 AM EDT</td><td></td><td> </td> 04/17/2021 09:41:00 AM EDT [facility] POC ACT <td>POC ACT</td><td>Routine< /td><td>04/17/2021 9:40 AM EDT</td><td></td><td> </td> 04/17/2021 09:40:00 AM EDT [facility] POC VENOUS BLOOD GAS W LYTES <td>POC VENOUS BLOOD GAS W LYTES</td><td>Routine</td><td>04/17/2021 9:12 AM EDT</td><td></td><td> </td> 04/17/2021 09:12:00 AM EDT [facility] POC ACT <td>POC ACT</td><td>Routine< /td><td>04/17/2021 9:11 AM EDT</td><td></td><td> </td> 04/17/2021 09:11:00 AM EDT [facility] POC ARTERIAL BLOOD GAS W LYTES <td>POC ARTERIAL BLOOD GAS W LYTES</td><td>Routine</td><td>04/17/2021 8:44 AM EDT</td><td></td><td> </td> 04/17/2021 08:44:00 AM EDT [facility] POC ACT <td>POC ACT</td><td>Routine< /td><td>04/17/2021 8:43 AM EDT</td><td></td><td> </td> 04/17/2021 08:43:00 AM EDT [facility] LEVEL IV SURG PATHOLOGY GROSS&MICROSCOPIC EXAM <td>[facility] HISTOLOGY</td><td>Routine</td><td>04/17/2021 8:19 AM EDT</td><td></td><td> </td> 04/17/2021 08:19:00 AM EDT [facility] POC ARTERIAL BLOOD GAS W LYTES <td>POC ARTERIAL BLOOD GAS W LYTES</td><td>Routine</td><td>04/17/2021 7:45 AM EDT</td><td></td><td> </td> 04/17/2021 07:45:00 AM EDT [facility] POC ACT <td>POC ACT</td><td>Routine< /td><td>04/17/2021 7:44 AM EDT</td><td></td><td> </td> 04/17/2021 07:44:00 AM EDT [facility] REPAIR OR REPLACEMENT, MITRAL VALVE, MIN IMALLY INVASIVE, RIGHT THORACOTOMY APPROACH, USING HEARTPORT TECHNIQUE <td>REPAIR OR REPLACEMENT, MITRAL VALVE, MINIMALLY INVASIVE, RIGHT THORACOTOMY APPROACH, USING HEARTPORT TECHNIQUE</td><td></td><td>04/17/2021 7:24 AM EDT</td><td> Rheumatic mitral regurgitation</td><td></td> 04/17/2021 07:24:00 AM EDT - 04/17/2021 11:55:00 AM EDT Rheumatic mitral regurgitation [facility] Rheumatic mitral regurgitation ECG TRANSESOPHAG R-T 2D W/PRB IMG ACQUISJ I&R <td>ECHO CARDIOGRAM TRANSESOPHAGEAL</td><td>Routine</td><td>04/17/2021 7:21 AM EDT</td><td></td><td> </td> 04/17/2021 07:21:51 AM EDT [facility] GLUC BLD GLUC MNTR DEV CLEARED FDA SPEC HOME USE <td>P OCT GLUCOSE</td><td>Routine</td><td>04/17/2021 6:27 AM EDT</td><td></td><td> </td> 04/17/2021 06:27:00 AM EDT [facility] BLOOD TYPING ABO <td>PREPARE RBC</td><td>Rout ine</td><td>04/17/2021 12:01 AM EDT</td><td></td><td> </td> 04/17/2021 12:01:00 AM EDT [facility] ECG ROUTINE ECG W/LEAST 12 LDS TRCG ONLY W/O I&R <td>E CG 12- LEAD</td><td>Routine</td><td>04/14/2021 10:03 AM EDT</td><td> Rheumatic mitral regurgitation</td><td></td> 04/14/2021 10:03:21 AM EDT Rheumatic mitral regurgitation [facility] Rheumatic mitral regurgitation URNLS DIP STICK/TABLET RGNT AUTO W/O MICROSCOPY <td>UR INALYSIS W/O MICRO</td><td>Routine</td><td>04/14/2021 10:00 AM EDT</td><td> Rheumatic mitral regurgitation</td><td> </td> 04/14/2021 10:00:00 AM EDT Rheumatic mitral regurgitation [facility] Rheumatic mitral regurgitation ROOM TEMP AB SCREEN <td>ROOM TEMP AB SCREEN</td> <td>Routine</td><td>04/14/2021 9:40 AM EDT</td><td> Rheumatic mitral regurgitation</td><td> </td> 04/14/2021 09:40:00 AM EDT Rheumatic mitral regurgitation [facility] Rheumatic mitral regurgitation NT PRO BNP <td>NT PRO BNP</td><td>Routi ne</td><td>04/14/2021 9:40 AM EDT</td><td> Rheumatic mitral regurgitation</td><td> </td> 04/14/2021 09:40:00 AM EDT Rheumatic mitral regurgitation [facility] Rheumatic mitral regurgitation THROMBOPLASTIN TIME PARTIAL PLASMA/WHOLE BLOOD <td>APTT</td><td>Routine</td><td>04/14/2021 9:40 AM EDT</td><td> Rheumatic mitral regurgitation</td><td> </td> 04/14/2021 09:40:00 AM EDT Rheumatic mitral regurgitation [facility] Rheumatic mitral regurgitation PROTHROMBIN TIME <td>PROTIME-INR</td><td>Rout ine</td><td>04/14/2021 9:40 AM EDT</td><td> Rheumatic mitral regurgitation</td><td> </td> 04/14/2021 09:40:00 AM EDT Rheumatic mitral regurgitation [facility] Rheumatic mitral regurgitation BLOOD COUNT COMPLETE AUTO&AUTO DIFRNTL WBC COUNT <td>C BC AND DIFFERENTIAL</td><td>Routine</td><td>04/14/2021 9:40 AM EDT</td><td> Rheumatic mitral regurgitation</td><td> </td> 04/14/2021 09:40:00 AM EDT Rheumatic mitral regurgitation [facility] Rheumatic mitral regurgitation BLOOD TYPING ABO <td>TYPE AND SCREEN</td><td> Routine</td><td>04/14/2021 9:40 AM EDT</td><td> Rheumatic mitral regurgitation</td><td> </td> 04/14/2021 09:40:00 AM EDT Rheumatic mitral regurgitation [facility] Rheumatic mitral regurgitation HEMOGLOBIN GLYCOSYLATED A1C <td>HEMOGLOBIN A1C</td><td>Routine</td><td>04/14/2021 9:40 AM EDT</td><td> Rheumatic mitral regurgitation</td><td> </td> 04/14/2021 09:40:00 AM EDT Rheumatic mitral regurgitation [facility] Rheumatic mitral regurgitation COMPREHENSIVE METABOLIC PANEL <td>COMPREHENSIVE METABO LIC PANEL</td><td>Routine</td><td>04/14/2021 9:40 AM EDT</td><td> Rheumatic mitral regurgitation</td><td> </td> 04/14/2021 09:40:00 AM EDT Rheumatic mitral regurgitation [facility] Rheumatic mitral regurgitation POC ARTERIAL BLOOD GAS <td>POC ARTERIAL BLOOD GAS</td><td>Routine</td><td>04/14/2021 9:38 AM EDT</td><td></td><td> </td> 04/14/2021 09:38:00 AM EDT [facility] Bronchospasm Evaluation 03/20/2021 12:00:00 AM EDT [facility] ([facility]) Plethysmography Determination Lung Volumes & Per Airway Resi st 03/20/2021 12:00:00 AM EDT [facility] ([facility]) DIFFUSING CAPACITY 03/20/2021 12:00:00 AM EDT [facility] ([facility]) ECG ROUTINE ECG W/LEAST 12 LDS W/I&R <td>POCT AMB EKG</td><td>Routine</td><td>02/06/2021 5:47 PM EDT</td><td> Rheumatic mitral stenosis with insufficiency</td><td> </td> 02/06/2021 05:47:00 PM EDT Rheumatic mitral stenosis with insufficiency [facility] Rheumatic mitral stenosis with insuffici ency OFFICE OUTPATIENT VISIT 15 MINUTES 01/15/2021 12:00:00 AM EDT [facility] ([facility] ECG ROUTINE ECG W/LEAST 12 LDS W/I&R <td>POCT AMB EKG</td><td>Routine</td><td>01/06/2021</td><td> Shortness of breath</td><td> </td> 01/06/2021 12:00:00 AM EDT Shortness of breath [facility] Shortness of breath RADEX SPINE ENTIRE SURVEY STD ANTEROPOST&LAT <td>CARDI AC CATHETERIZATION</td><td>Routine</td><td>12/10/2020 1:25 PM EDT</td><td> Shortness of breath Rheumatic mitral regurgitation Rheumatic mitral stenosis with insufficiency Peripheral vascular disease Hypercholesterolemia Smoker Right carotid bruit</td><td> </td> 12/10/2020 05:25:21 PM EDT Right carotid bruitSmokerHypercholestero lemiaPeripheral vascular diseaseRheumatic mitral stenosis with insufficiencyRheumatic mitral regurgitationShortness of breath [facility] Right carotid bruit Smoker Hypercholesterolemia Peripheral vascular disease Rheumatic mitral stenosis with insuffici ency Rheumatic mitral regurgitation Shortness of breath COVID/FLU AB/RSV PCR <td>COVID/FLU AB/RSV PCR</td ><td>STAT</td><td>12/10/2020 9:50 AM EDT</td><td></td><td> </td> 12/10/2020 01:50:00 PM EDT [facility] BLOOD COUNT COMPLETE AUTOMATED <td>CBC</td><td>STAT</t d><td>12/10/2020 9:36 AM EDT</td><td></td><td> </td> 12/10/2020 01:36:00 PM EDT [facility] BASIC METABOLIC PANEL CALCIUM TOTAL <td>BASIC METABOLI C PANEL</td><td>STAT</td><td>12/10/2020 9:36 AM EDT</td><td></td><td> </td> 12/10/2020 01:36:00 PM EDT [facility] ECG ROUTINE ECG W/LEAST 12 LDS W/I&R <td>POCT AMB EKG</td><td>Routine</td><td>12/09/2020 10:59 AM EDT</td><td> Shortness of breath</td><td> </td> 12/09/2020 02:59:00 PM EDT Shortness of breath [facility] Shortness of breath OFFICE OUTPATIENT NEW 30 MINUTES 11/26/2020 12:00:00 A M EDT [facility] ([facility]) Results ID Date Data Source US Duplex, Ext LOWER Veins, Unilat 06/20/2021 12:00:00 AM ED T [facility] ([facility]) Name Value Range Interpretation Code Description Data Romi rce(s) Supporting Document(s) US Duplex, Ext LOWER Vein s, Unilat [facility] ([facility]) ID Date Data Source [id number] 05/21/2021 06:14:57 PM EDT [facility] INFORMATIONPatient MRN Name Date of Age Gend*PT [id number] Adrian Andrews 1970 50 years M ---PT Location Admission Date/Time Visit ID Attending Provider --- --- --- --- EPI ID CSN Admitting Provider [id number] ---Agree with the proposed plan. Name Value Range Interpretation Code Description Data Romi rce(s) Supporting Document(s) ID Date Data Source [id number] 05/08/2021 05:44:19 PM EDT [facility] NT INFORMATIONPatient MRN Name Date of Age Gend*PT [id number] Adrian Andrews 1970 50 years M IPPT Location Admission Date/Time Visit ID Attending [id number] 04/17/21 0518 --- --- EPI ID CSN Admitting Provider [id number] Chandler Corrigan MD([id number]) [place] [address] OPERATIVE REPORT OPNAME: ADRIAN ANDREWS#: [id number] #: [id number] ADMISSION DATE: 04/17/2021OB: 1970 SEX: M PT TYPE: I CardACCT #: [id number] CARE PHYSICIAN: MAURICIO JIMENEZHAFAIZADATE OF OPERATION: 04/17/2021REOPERATIVE DIAGNOSES:Severe symptomatic mitral stenosis and mitral regurgitation.POSTOPERATIVE DIAGNOSES:Severe symptomatic mitral stenosis and mitral regurgitation.PROCEDURE:Minimally invasive mitral valve replacement consisting of #29 MedtronicMosaic bioprosthetic valve.SURGEON:Chandler Corrigan MDASSISTANT:CARIN Carmona.ANESTHESIA:General endotracheal.ANESTHESIOLOGIST:Rowan Macedo MDINDICATIONS FOR PROCEDURE:Patient is a pleasant 50-year-old gentleman with a possible history ofrheumatic fever in the past, who has developed [place] Heart Associationclass III symptoms and was found tohave evidence of at least moderate mitral stenosis and qspihsdc-jt-lwvotrkjmpys regurgitation. This was clearly a mixed picture and likelyrheumatic in nature. He underwent cardiac catheterization that did not showcoronary artery disease. He had no atrial arrhythmias. I saw the patientin the office, reviewed his studies, felt that he had clear indication formitral valve surgery, even a replacement with his symptoms, I felt this wasessentially the only option for him. I did feel his valve most likelywould need to be replaced as it was rheumatic, thickened valve. 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 Thesubvalvular apparatus was completely fused. There were really no visiblechordae present, just 1 fused mass. We excised the anterior leaflet. Wedid preserve portion of the posterior leaflet within the valve sutures.The annulus sized for a 29 Medtronic Mosaic valve, which was appropriatefor the patient's body surface area. Postop ROBERT looked good with normal LVfunction and no MR visualized, normally functioning bioprosthetic valve.Pump time was 75 minutes, crossclamp time 57 minutes. We used del Nidocardioplegia with good arrest throughout the entire crossclamp.DESCRIPTION OF PROCEDURE:With the patient supine on the operating table and under generalendotracheal anesthesia, the chest, abdomen, and extremities were preppedwith ChloraPrep and draped in the usual sterile fashion. Incision was madefor a right mini thoracotomy. Concurrently, the right femoral artery andvein were superficially exposed for cardiopulmonary bypass. We gave fulldose heparin. We did open the pericardium and placed tack-up sutures.Cannulation was instituted under echo guidance. We placed a Cosgroveaortic crossclamp and gave 1 L of del Nido cardioplegia with good arrestthroughout the entire crossclamp. We opened the left atrium in theinteratrial groove, placed the self-retaining atrial retractor. We hadexcellent exposure of the mitral valve. We placed 2-0 Ti-Cron pledgetedsutures circumferentially around the mitral valve annulus. The anteriorleaflet was excised. Annulus sized for a 29 Medtronic Mosaic bioprostheticvalve. We preserved a portion of the posterior leaflet within the valvesutures. These were passed up through the #29 Mosaic valve. Valve wasseated and the sutures tied using the Cor-Knot device and then we placed awiggly drop in suction across the mitral valve to act as an LV vent andthen we placed the patient in Trendelenburg position and with the root venton and the LV vent off, the aortic crossclamp was released. The patientbegan to beat in a slow junctional rhythm. We placed atrial andventricular pacing wires, then the patient was AV sequentially paced andrapidly weaned off bypass on no inotropic support. Protamine was given toreverse the heparin. Hemostasis was secured. Again, we placed atrial andventricular pacing wire. Incisions were closed with Vicryl suture inlayers. Sterile dressing was applied. Sponge and needle counts werecorrect. I was present for the procedure. The patient was transported,intubated, and hemodynamically stable to the Cardiovascular Intensive CareUnit.KALLIE Valdes/NAVEEN Job #: [id number] DOC #: [id number]: Primary Care Physician Toby Parish MD Name Value Range Interpretation Code Description Data Romi rce(s) Supporting Document(s) ID Date Data Source [id number] 04/23/2021 05:06:19 PM EDT [address] [address]Zevcwcu Name: ADRIAN ANDREWSDOB: 1970Sex: MOrdering Provider: RALPH BENITEZuthmuzing Prov: RALPH FRANKLINReferring Provider: Procedure Performed: / XR CHEST PORTABLEExam Date: 04/23/2021 17:03MRN: [id number] Number: [id number] Class: InpatientAccount #: [id number] for Exam: F/U PneumothoraxTechnique: AP portable view obtained.Comparison: 04/23/2021Findings: Small right apical pneumothorax unchanged compared to prior exam.Small right pleural effusion. Airspace consolidation right lung base likely representing atelectasis. Small amount of atelectasis medial left lung base unchanged.Pacemaker unchanged.IMPRESSION: Small right apical pneumothorax unchanged compared to prior exam.Report electronically signed by: AZALEA BAL On 04/23/2021 5:06 PMWorkstation ID: [id number] Name Value Range Interpretation Code Description Data Romi rce(s) Supporting Document(s) ID Date Data Source [id number] 04/23/2021 03:35:06 PM EDT [facility] NT INFORMATIONPatient MRN Name Date of Age Gend*PT [id number] Adrian Andrews 1970 50 years M IPPT Location Admission Date/Time Visit ID Attending [id number] 04/17/21 0518 --- Chandler Corrigan MD([id number]) EPI ID CSN Admitting Provider [id number] Chandler Corrigan MD([id number]) Attestation signed by Rachel Drummond MD at 04/23/2021 3:35 PMI saw and evaluated the patient and reviewed the note. I agree with thehistory, physical and medical decision making.Signature: Rachel Drummond MDDate: April 23, 2021Time: 3:34 PM --Surgical Discharge SummaryPorterkevin Lee [facility] ElmerN: [id number] date: 04/17/2021dmitting Physician: PRESLEY Valdesischarge date and time:Discharge Orders Placed(From admission, onward) NoneDischarge Physician: Ike rAreaga Diagnosis: Rheumatic mitral regurgitationSecondary Diagnoses:Active Hospital Problems Diagnosis Date Noted Rheumatic mitral regurgitation 12/09/2020 Added automatically from request for surgery [id number] Hospital ProblemsNo resolved problems to display.Discharge Medications: See AVSIndication for Admission: Per H&P from 04/14/21, "50 years old white male whoreports increasing dyspnea on exertion over the last 18 months. He states hehad been evaluated by his PCP and had follow-up with different provider in theoffice who referred him to the emergency department. Patient then underwentadditional work-up. He underwent cardiac catheterization on 12/10/2020.Catheterization found minimal diffuse coronary artery disease. He hadtransesophageal echo on 01/29/2021. Echo estimates ejection fraction is 60 to65%. "The mitral valve appears severely thickened. There is restriction ofleaflet motion and prolapse of anterior mitral leaflet." The mean transmitralgradient is 7 and peak gradient 20 mmHg corresponding to moderate mitralstenosis. Patient reports dyspnea with minimal exertion such as gettingdressed, shortness of breath at rest, fatigue, and chest pain. He reports ofchest pain as pain, pressure, and tightness. He states these occur roxana th at restand with exertion. Symptoms are relieved with 2 to 4 minutes of rest andrelaxation.The patient met with Dr. Corrigan, options were discussed and they have elected tounder go REPAIR OR REPLACEMENT, MITRAL VALVE, MINIMALLY INVASIVE, RIGHTTHORACOTOMY APPROACH, USING HEARTPORT TECHNIQUE, TRANSESOPHAGEAL ECHOCARDIOGRAMon 04/17/2021."Hospital Course & Complications: The patient was taken to the OR on 04/17/21 forminimally invasive mitral valve replacement consisting of # 29 Medtronic Mosaicbioprosthetic valve and brought to CVICU postoperatively. The patient wasextubated, vasoactives were weaned as tolerated. Chest tubes remained d/t an airleak and PTX after a clamp trial. Drainage improved and air leak was not seen onPOD 5. Chest tubes were pulled and chest xray is pending discharge.The patient developed a high grade AV block, was pacer dependent, and went tothe OR for a permanent pacemaker implantation with Dr. Drummond on POD 5. Thepatient was then transferred to telemetry floor, cardiac meds were adjusted.Pacing wires were pulled on the day of discharge. O2 saturation was adequate onroom air, the patient was ambulating in halls with no assistance, and bowel andbladder function returned. Discharged to home in stable condition.The patient was started on coumadin for MVR. Coumadin doses were held for thelast 3 days for the pacemaker procedure. Pt will be restarted on 1 mg and havean INR draw on Wednesday 04/25. Dr. Fonseca office was notified to follow thecoumadin/INR.Pt was started on a low dose lopressor on day of discharge. Pts blood pressurewas in the low 100's. If patients blood pressure tolerates he will be sent homeon the low dose.They are to follow up with Dr. Corrigan in 1 week, with import export manager Dr. Parish in2-3 weeks, and with PCP in 3-4 weeks.Past Medical History:Past Medical History:Diagnosis Date Complex regional pain syndrome i of left lower limb COPD (chronic obstructive pulmonary disease) Coronary artery disease Per catheterization on 12/10/2020 "minimal diffuse coronary artery disease." Hyperlipidemia Migraines Nephrolithiasis Pericarditis 2010? Peripheral vascular disease 12/09/2020 Rheumatic mitral regurgitation Followed by Dr Parish Right carotid bruit 12/09/2020urgical Procedures:Procedure(s):INSERTION DUAL CHAMBER CARDIAC PACEMAKER (N/A)Significant Diagnostic Studies: Chest xray 5 aniya rs post chest tube removalSmall right apical pneumothorax measuring 1.5 cm at the apex. Small right pleural effusion unchangedTreatments: observationDischarge Exam:Vitals: Temp: [98 F-99.3 F] 99.1 FHeart Rate: [69-80] 71Resp: [11-40] 18BP: (92-119)/(59-75) 98/59Pleasant, comfortable, not in acute distress.Awake, alert, oriented times 3.Moves all extremities.Lungs: Clear to auscultation bilaterally.Heart: regular rate and rhythmAbdomen: Soft, nontender, bowel sounds present.Extremities: No edema.Wound/Incision: clean, dry and no drainage, prineo intactItems needing special attention:Coumadin/INR for MVRDischarged Condition:stableDisposition: Home or Self CareSignature: Adriana Montemayor PADate: April 23, 2021Time: 8:52 AM Name Value Range Interpretation Code Description Data Romi rce(s) Supporting Document(s) ID Date Data Source [id number] 04/23/2021 01:43:11 PM EDT [address] [address]Ryccaqe Name: ADRIAN SUMNERB: 1970Sex: MOrdering Provider: ADRIANA MONTEMAYORAuthorizing Prov: ADRIANA MONTEMAYORReferralexsandra Provider: Procedure Performed: / XR CHEST PA AND LATERALExam Date: 04/23/2021 13:39MRN: [id number] Number: [id number] Class: InpatientAccount #: [id number] for Exam: chest tube removal, PTXTechnique: PA and lateral views obtained.Comparison: 04/23/2021 0746 hoursFindings: Pacemaker in satisfactory position. Small right pleural effusion. Mild atelectasis medial left lung base unchanged. Right-sided chest tubes have been removed. Small right apical pneumothorax measuring 1.5 cm at the apex.IMPRESSION: Small right apical pneumothorax measuring 1.5 cm at the apex.Small right pleural effusion unchanged.Mild basilar atelectasis.Report electronically signed by: AZALEA BAL On 04/23/2021 1:43 PMWorkstation ID: [id number] - [id number] Name Value Range Interpretation Code Description Data Romi rce(s) Supporting Document(s) ID Date Data Source [id number] 04/23/2021 02:57:39 PM EDT [facility] Name Value Range Interpretation Code Description Data Romi rce(s) Supporting Document(s) MAGNESIUM 2.6 mg/dL (1.7-2.4) H [facility] ID Date Data Source [id number] 04/23/2021 02:57:39 PM EDT [facility] Name Value Range Interpretation Code Description Data Romi rce(s) Supporting Document(s) SODIUM 137 mmol/L (136-145) [facility] POTASSIUM 4.5 mmol/L (3.6-5.2) [facility] CHLORIDE 103 mmol/L (100-108) [facility] CO2 26 mmol/L (22-31) [facility] ANION GAP 8 mmol/L (7-16) [facility] UREA NITROGEN 12 mg/dL (7-24) [facility] CREATININE 1.11 mg/dL (0.80-1.30) [facility] BUN/CREAT RATIO 10.8 RATIO (10.0-20.0) [facility] GLUCOSE 74 mg/dL (70-99) [facility] CALCIUM 8.9 mg/dL (8.4-10.2) [facility] GFR >60 ml/min/1.73m2 (>59) [facility] GFR ( AMER) >60 ml/min/1.73m2 (>59) [facility] GFR INTERPRETATION [facility] --NORMAL KIDNEY FUNCTION OR MILD DISEASE - GFR >OR= 60CHRONIC KIDNEY DISEASE - GFR 15 - 59RENAL FAILURE - GFR <15 Est. GFR calculation based on the MDRDstudy equation, which assumes a steadystate for creatinine. Est. GFR should notbe used for medication dosing. ID Date Data Source [id number] 04/23/2021 02:22:41 PM EDT [facility] Name Value Range Interpretation Code Description Data Romi rce(s) Supporting Document(s) WBC 7.5 10*3/uL (4.1-11.0) [facility] RBC 3.70 10*6/uL (4.60-6.10) L [facility] HGB 11.1 g/dL (13.5-18.0) L [facility] HCT 33.9 % (41.0-53.0) L [facility] MCV 91.5 fL (80.0-95.0) [facility] MCH 29.8 pg (27.0-32.0) [facility] MCHC 32.6 g/dL (32.0-36.0) [facility] RDW 15.7 % (10.5-14.5) H [facility] PLT 171 10*3/uL (150-450) [facility] MPV 9.5 fL (7.1-10.7) [facility] ID Date Data Source [id number] 04/23/2021 02:15:53 PM EDT [facility] Name Value Range Interpretation Code Description Data Romi rce(s) Supporting Document(s) PT 13.4 s (9.2-11.9) H [facility] INR 1.30 [facility] SUGGESTED THERAPEUTIC RANGES USING INR F ORSTABILIZED ANTICOAGULATED PATIENTS:STANDARD DOSE THERAPY INR 2.0-3.0 DVT, PE, PREVENT DVT OR EMBOLISMHIGH DOSE THERAPY INR 2.5-3.5 PREVENT EMBOLISM FROM MECHANICAL HEART VALVE ID Date Data Source [id number] 04/23/2021 09:48:43 AM EDT [facility] Name Value Range Interpretation Code Description Data Romi rce(s) Supporting Document(s) EKG [facility] YARTBb2gFhZGKeLpq9WjGuMnCTSgNU9voln9U7B2jZOtW5LztVRgx1ziN8NkR3GoCHKrQWUWLM5GeTTg jb2 [file] mO+BNHRVibWTriD8eKdv1aY1a3Sa6StRPtzZ5TSvLg4G2mmdf0CBaFNVy6YlpP0ZolM6E3XlmyUZh+P[employer]KER [file] c0okW4u8fM2Fjuj+TEB17SeHhz9H63KOHUNiIu13nSZR1Ilqcx0qxrQMAYgJSDNLWrBtFMAKNDCRM+Сергей [file] digital marketing jG4jUgFabj3helC+W4cZW5pv1QNwQ0Gv5HF6S5CBgwpr8sEtFbXu8pDQ4wDbwWnhpgH+wq5zUjn3UjQu Et5afFg4CtcCDfoC+9PI+azUVznrWHoa/Z5t/a2iwSMssd4xCdier6E2cmBtkO7t9QSR0/ls+73FhVR2 1BU92/o723kS0xB869C83se/9rby1t+yqemLyc1Qkf [file] vihNCvF421aNDaDlybmLaNQ/s+R+gv3zhGrcS [file] MDAwMDAgbiAKMDAwMDAwMTQwNiAwMDAwMCBuIAowMD HuSQZ7NqSeEWRyPWNqOQ2dXrVpOBNpRUB9AMnvCZDjMEDbrkNTYRAgEGEyFZvuDZQxCCPpJGHxBBduGL OwUKGjXOV2IEYhQEQaVR6lXzXrSITwCQPiHNAcZaQ5HkOnWfWBpYLdkFmpxza6UMigE8o2XXXlLDriHX 0fsfHcQZIyZsxoFi9qcYB4LAPyWczFAl2Cv1ApykI9udPlUgSeKnGrCrjzKTSZKb== ID Date Data Source [id number] 04/23/2021 08:11:59 AM EDT [address] [address]Kqcykdy Name: ADRIAN SUMNERLadonna: 1970Sex: MOrdering Provider: ALVERTO Sneed Prov: ALVERTO Becker Provider: Procedure Performed: / XR CHEST PA AND LATERALExam Date: 04/23/2021 08:01MRN: [id number] Number: [id number] Class: InpatientAccount #: [id number] for Exam: ATX/effusionsTechnique: PA and lateral views obtained.Comparison: Portable chest x-ray April 22, 2021.Findings: The patient is status post right thoracotomy for open heart surgery. There are 2 right-sided chest tubes. There is a small right apex pneumothorax which is not seen on yesterday's exam. In retrospect. There is better aeration in both lung bases, greater on right than left. There is a small right pleural effusion. I think that there is a small left pleural effusion as well. The heart size is normal. There is a dorsal column stimulator unchanged in position. There is an atrial ventricular pacemaker unchanged in position. Free air is not seen beneath the diaphragms. Monitor wires are projected over the patient.IMPRESSION: Small right apex pneumothorax is not seen on yesterday's exam. Better aeration bilaterally with residual atelectasis and effusion. Continued follow-up is recommended. These findings were communicated via the departmental critical result protocol.Report electronically signed by: AZALEA PLAZA On 04/23/2021 8:11 AMWorkstation ID: [id number] Name Value Range Interpretation Code Description Data Romi rce(s) Supporting Document(s) ID Date Data Source [id number] 04/22/2021 06:41:59 PM EDT [address] [address]Smmiser Name: ADRIAN Jesus SUMNERB: 1970Sex: MOrdering Provider: ALVERTO Sneed Prov: ALVERTO Becker Provider: Procedure Performed: / XR CHEST PORTABLEExam Date: 04/22/2021 18:39MRN: [id number] Number: [id number] Class: InpatientAccount #: [id number] for Exam: in PACU- s/p PPMTechnique: AP portable view obtained.Comparison: 04/22/2021 0659 hoursFindings: Pacemaker appears be in satisfactory position. No pneumothorax. Right-sided chest tube in place. Mild bibasilar atelectasis. Mediastinum unrema rkable.IMPRESSION: Pacemaker appears to be in satisfactory position. No pneumothorax. Mild bibasilar atelectasis.Report electronically signed by: AZALEA BAL On 04/22/2021 6:41 PMWorkstation ID: [id number] - [id number] Name Value Range Interpretation Code Description Data Romi rce(s) Supporting Document(s) ID Date Data Source [id number] 04/22/2021 06:20:30 PM EDT [facility] NT INFORMATIONPatient MRN Name Date of Age Gend*PT [id number] Adrian Andrews 1970 50 years M IPPT Location Admission Date/Time Visit ID [facility] 0518 --- Chandler Corrigan MD([id number]) EPI ID CSN Admitting Provider [id number] Chandler Corrigan MD([id number])Permanent Pacemaker ImplantationCardiovascular and Thoracic Surgery Operative ReportDate of Procedure: 04/22/2021 Patient's PCP: URI HENDRICKSatient Name: Adrian Andrews 50 years maleDate of :1970MRN: [id number]: [id number]: [facility] Note Date and Time: 04/22/2021 6:17 PMDate of Admission: 04/17/2021 5:18 AMSurgeon(s): Surgeon(s):Gray Negrete Physician:Dr. Chioperative diagnoses:1. Post Mitral Surgery Third Degree AV BlockPostoperative diagnoses:1. Post Mitral Surgery Third Degree AV BlockProcedure:1. DDD Dual Chamber Pacemaker ImplantationSurgeon:Rachel Drummond MDAnesthesia:Peter Provider(s):Anesthesiologist: Nick Senior MD; YUNIOR JenkinsRNA: Mercedes Beltran CRNAEstimated Blood Loss:20 ccStaff:OR Central Office Operator Supervisor: Destinee Montemayor RN; Pepper Page RNRadiology Tech: Bernardo Bello Scrub Person: Jcarlos Patricia Nurse: Chayito Montes RNImplants:Medtronic Pacemaker Model Reny serial # [id number] was placedAtrial Lead Model # 4076-52 Serial Number [id number]: Threshold AF, Orzrzlzhh101 Ohms.Ventricular Lead Model # 4076-58 Serial Number [id number]: Threshold 0.75 V,Impedance 817 Ohms.Description of Procedure:After informed consent was obtained and the surgical site was confirmed, thepatient was brought into the operating room and placed supine on the operatingtable. The patient was then given preoperative antibiotics. After the inductionof general anesthesia, the patient had appropriate lines and monitoring devicesplaced by anesthesia. The patient was prepped with surgical prep and steriledrapes were applied.Two 18-gauge needles were used to cannulate subclavian vein, and guidewiresadvanced and positioned in the right atrium under Fluoroscopy. A subclavicularincision was made and the pacemaker pocket was created above the pectoralismuscle. Wires exteriorized through the incision.The wire was removed. The right ventricular lead was then placed through thesheath. It was positioned into the apex of the right ventricle. The lead wastested and noted to be in satisfactory position. It was noted to have goodpacing thresholds. The peel-away sheath was removed and the lead was suturedinto place.A second sheath was placed over the other wire. The atrial lead was then placedthrough the second sheath. It was positioned into the right atrial appendage. Itwas deployed. It was noted to have good pacing thresholds. The sheath wasremoved and the lead was sutured into place.The leads were connected to the pacemaker generator. The remaining portion ofthe lead were then coiled in the pocket the generator was placed in the pocket.The pacemaker was tested and the above values were found. A final look withfluoroscopy showed good placement of the leads. It also showed no pneumothorax.The pocket was then closed in layers of Polysorb. Dermabond applied. All sponge,needle, and instrument counts were correct. Patient tolerated the procedure welland transferred to recovery room in stable condition.Rachel Drummond MD [facility] FACSCardiovascular Thoracic Surgery04/22/2021, 6:17 PM Name Value Range Interpretation Code Description Data Romi rce(s) Supporting Document(s) ID Date Data Source [id number] 04/22/2021 06:13:55 PM EDT [address] [address]Ckkfgov Name: ADRIAN WADE: 1970Sex: MOrdering Provider: RACHEL DRUMMONDAuthorizing Prov: RACHEL DRUMMONDReferralexsandra Provider: Procedure Performed: / XR FLUORO PACEMAKER INSERTExam Date: 04/22/2021 18:10MRN: [id number] Number: [id number] Class: InpatientAccount #: [id number] for Exam: heart blockTechnique: Fluoroscopy with no digital spot images obtained.Fluoroscopy time: 103 SecondsNumber of Spot Images:Comparison: NoneFindings: Fluoroscopy performed during pacemaker insertion procedure.IMPRESSION: Fluoroscopy performed during pacemaker insertion procedure. One image obtained.Report electronically signed by: AZALEA BAL On 04/22/2021 6:13 PMWorkstation ID: [id number] Name Value Range Interpretation Code Description Data Romi rce(s) Supporting Document(s) ID Date Data Source [id number] 04/22/2021 04:45:15 PM EDT [facility] INFORMATIONPatient MRN Name Date of Age Gend*PT [id number] Adrian Andrews Jesus 1970 50 years M IPPT Location Admission Date/Time Visit ID Attending [id number] 04/17/21 0518 --- Chandler Corrigan MD([id number]) EPI ID CSN Admitting Provider [id number] Chandler Corrigan MD([id number])H&P and daily progress notes since admission reviewed. Changes to the patient'scondition since admission have been documented in the progress notes and noted.Rachel Drummond MD4:44 PM Name Value Range Interpretation Code Description Data Romi rce(s) Supporting Document(s) ID Date Data Source [id number] 04/22/2021 06:22:24 PM EDT [facility] SPEC EXP DATE 04/25/2021ATI ENT ABO/Rh O NEGATIVEANTIBODY SCREEN NEGATIVETESTING SITE PERFORMED AT [address] [place] [id number] BANK COMMENT BLOOD TYPE CONFIRMED. Name Value Range Interpretation Code Description Data Romi rce(s) Supporting Document(s) TYPE AND SCREEN [facility] ID Date Data Source [id number] 04/22/2021 01:55:00 PM [facility]T [facility] Name Value Range Interpretation Code Description Data Romi rce(s) Supporting Document(s) SARS coronavirus 2 RNA [Presence] in Res piratory specimen by LEON with probe detection NOT DETECTED NYSDOH This lab was reported by [facility]. ID Date Data Source [id number] 04/22/2021 04:27:15 PM EDT [facility] GARCIA Name Value Range Interpretation Code Description Data Romi rce(s) Supporting Document(s) SPECIMEN DESCRIPTION [facility] INFLUENZA A (NEG) [facility] [place] INFLUENZA B (NEG) [facility] Y RSV (NEG) [facility] COMMENT [facility] THE [place] FDA HAS MADE THIS TEST AVAILABL RENOER AN EMERGENCY USE AUTHORIZATION(EUA) FOR THE DETECTION AND/OR DIAGNOSISOF THE VIRUS THAT CAUSES COVID-19.PERFORMED AT [address] [place] [id number] COVID19 RESULT (NDET) [facility] THIS ASSAY AMPLIFIES AND DETECTSTHE TARG ET RNA USING REAL-TIME PCR.TESTING PERFORMED ON Patterns GENEXPERTNEGATIVE 2019_NCOV RT-PCR RESULTS DONOT PRECLUDE 2019_NCOV INFECTION ANDSHOULD NOT BE USED THE SOLE BASISFOR PATIENT MANAGEMENT DECISIONS. FIRST TEST [facility] EMPLOYED IN HLTHCARE [facility] SYMPTOMATIC [facility] Sharpe DATE OF SYMPT ONSET [facility] HOSPITALIZED [facility] ICU [facility] CONGREGATE CARE SET [facility] ID Date Data Source [id number] 04/22/2021 10:33:39 AM EDT [facility] [place] Name Value Range Interpretation Code Description Data Romi rce(s) Supporting Document(s) POTASSIUM 4.3 mmol/L (3.6-5.2) [facility] ID Date Data Source [id number] 04/22/2021 07:54:56 AM EDT [address] [address]Dphfqmg Name: ADRIAN SUMNERB: 1970Sex: MOrdering Provider: MAURICIO SAUCEDAAuthoantonio Prov: MAURICIO SAUCEDARefjosé antonio Provider: Procedure Performed: / XR CHEST PORTABLEExam Date: 04/22/2021 07:05MRN: [id number] Number: [id number] Class: InpatientAccount #: [id number] for Exam: PneumoniaTechnique: AP portable view obtained.Comparison: April 20, 2021 portable chest x-rayFindings: Right chest tubes unchanged in position. Tiny right apex pneumothorax again seen. Right jugular Cordis remains. Better aeration in both lung bases with persistent bilateral pleural effusions. Free air is not seen beneath the diaphragms. Temporary pacemaker wires and an epidural dorsal column stimulator are again seen.IMPRESSION: Improving consolidation. Stable tiny right pneumothorax. Right chest tubes remain. Continued follow-up is recommended.Report electronically signed by: AZALEA PLAZA On 04/22/2021 7:54 AMWorkstation ID: [id number] - [id number] Name Value Range Interpretation Code Description Data Romi rce(s) Supporting Document(s) ID Date Data Source [id number] 04/22/2021 04:41:34 AM EDT [facility] Name Value Range Interpretation Code Description Data Romi rce(s) Supporting Document(s) MAGNESIUM 2.0 mg/dL (1.7-2.4) [facility] ID Date Data Source [id number] 04/22/2021 04:41:34 AM EDT [facility] Name Value Range Interpretation Code Description Data Romi rce(s) Supporting Document(s) SODIUM 139 mmol/L (136-145) [facility] POTASSIUM 4.0 mmol/L (3.6-5.2) [facility] CHLORIDE 107 mmol/L (100-108) [facility] CO2 27 mmol/L (22-31) [facility] ANION GAP 5 mmol/L (7-16) L [facility] UREA NITROGEN 11 mg/dL (7-24) [facility] CREATININE 0.92 mg/dL (0.80-1.30) [facility] BUN/CREAT RATIO 12.0 RATIO (10.0-20.0) [facility] GLUCOSE 89 mg/dL (70-99) [facility] CALCIUM 8.4 mg/dL (8.4-10.2) [facility] GFR >60 ml/min/1.73m2 (>59) [facility] GFR ( AMER) >60 ml/min/1.73m2 (>59) [facility] GFR INTERPRETATION [facility] --NORMAL KIDNEY FUNCTION OR MILD DISEASE - GFR >OR= 60CHRONIC KIDNEY DISEASE - GFR 15 - 59RENAL FAILURE - GFR <15 Est. GFR calculation based on the MDRDstudy equation, which assumes a steadystate for creatinine. Est. GFR should notbe used for medication dosing. ID Date Data Source [id number] 04/22/2021 04:05:45 AM EDT [facility] Name Value Range Interpretation Code Description Data Romi rce(s) Supporting Document(s) WBC 6.9 10*3/uL (4.1-11.0) [facility] [place] RBC 3.27 10*6/uL (4.60-6.10) L [facility] HGB 9.8 g/dL (13.5-18.0) L [facility] HCT 30.0 % (41.0-53.0) L [facility] MCV 91.6 fL (80.0-95.0) [facility] MCH 30.0 pg (27.0-32.0) [facility] MCHC 32.7 g/dL (32.0-36.0) [facility] RDW 15.9 % (10.5-14.5) H [facility] PLT 127 10*3/uL (150-450) L [facility] MPV 8.8 fL (7.1-10.7) [facility] ID Date Data Source [id number] 04/22/2021 04:20:20 AM EDT [facility] Name Value Range Interpretation Code Description Data Romi rce(s) Supporting Document(s) PT 16.2 s (9.2-11.9) H [facility] INR 1.58 [facility] SUGGESTED THERAPEUTIC RANGES USING INR F ORSTABILIZED ANTICOAGULATED PATIENTS:STANDARD DOSE THERAPY INR 2.0-3.0 DVT, PE, PREVENT DVT OR EMBOLISMHIGH DOSE THERAPY INR 2.5-3.5 PREVENT EMBOLISM FROM MECHANICAL HEART VALVE ID Date Data Source [id number] 04/21/2021 04:14:38 AM EDT [facility] Name Value Range Interpretation Code Description Data Romi rce(s) Supporting Document(s) PT 29.8 s (9.2-11.9) H [facility] INR 3.02 [facility] SUGGESTED THERAPEUTIC RANGES USING INR F ORSTABILIZED ANTICOAGULATED PATIENTS:STANDARD DOSE THERAPY INR 2.0-3.0 DVT, PE, PREVENT DVT OR EMBOLISMHIGH DOSE THERAPY INR 2.5-3.5 PREVENT EMBOLISM FROM MECHANICAL HEART VALVE ID Date Data Source [id number] 04/21/2021 04:36:06 AM EDT [facility] Name Value Range Interpretation Code Description Data Romi rce(s) Supporting Document(s) SODIUM 138 mmol/L (136-145) [facility] POTASSIUM 4.2 mmol/L (3.6-5.2) [facility] CHLORIDE 105 mmol/L (100-108) [facility] CO2 26 mmol/L (22-31) [facility] ANION GAP 7 mmol/L (7-16) [facility] UREA NITROGEN 12 mg/dL (7-24) [facility] CREATININE 0.85 mg/dL (0.80-1.30) [facility] BUN/CREAT RATIO 14.1 RATIO (10.0-20.0) [facility] GLUCOSE 98 mg/dL (70-99) [facility] CALCIUM 8.0 mg/dL (8.4-10.2) L [facility] GFR >60 ml/min/1.73m2 (>59) [facility] GFR ( AMER) >60 ml/min/1.73m2 (>59) [facility] GFR INTERPRETATION [facility] --NORMAL KIDNEY FUNCTION OR MILD DISEASE - GFR >OR= 60CHRONIC KIDNEY DISEASE - GFR 15 - 59RENAL FAILURE - GFR <15 Est. GFR calculation based on the MDRDstudy equation, which assumes a steadystate for creatinine. Est. GFR should notbe used for medication dosing. ID Date Data Source [id number] 04/21/2021 04:08:43 AM EDT [facility] Name Value Range Interpretation Code Description Data Romi rce(s) Supporting Document(s) WBC 8.5 10*3/uL (4.1-11.0) [facility] [place] RBC 3.35 10*6/uL (4.60-6.10) L [facility] HGB 10.2 g/dL (13.5-18.0) L [facility] HCT 30.8 % (41.0-53.0) L [facility] MCV 92.1 fL (80.0-95.0) [facility] MCH 30.4 pg (27.0-32.0) [facility] MCHC 33.1 g/dL (32.0-36.0) [facility] RDW 16.5 % (10.5-14.5) H [facility] PLT 126 10*3/uL (150-450) L [facility] MPV 9.1 fL (7.1-10.7) [facility] ID Date Data Source [id number] 04/20/2021 12:04:24 PM EDT [address] [address]Tnaedks Name: ADRIAN SUMNERB: 1970Sex: MOrdering Provider: RON Renteria Prov: RON Ernst Provider: Procedure Performed: / XR CHEST PORTABLEExam Date: 04/20/2021 11:57MRN: [id number] Number: [id number] Class: InpatientAccount #: [id number] for Exam: ptx, CT to H2O sealTechnique: AP portable view obtained.Comparison: 04/19/2021Findings: Right- sided chest tube has been removed more superiorly. Right pneumothorax markedly smaller in size. There is still a tiny pneumothorax at the apex measuring only 6 mm.Bibasilar airspace consolidation mildly increased.Mediastinum unremarkable.IMPRESSION: Tiny residual right apical pneumothorax.Bibasilar airspace consolidation mildly increased most likely representing atelectasis. Pneumonia cannot be excluded.Report electronically signed by: AZALEA BAL On 04/20/2021 12:04 PMWorkstation ID: [id number] - [id number] Name Value Range Interpretation Code Description Data Romi rce(s) Supporting Document(s) ID Date Data Source [id number] 04/20/2021 12:37:07 PM EDT [facility] Name Value Range Interpretation Code Description Data Romi rce(s) Supporting Document(s) POTASSIUM 4.4 mmol/L (3.6-5.2) [facility] ID Date Data Source [id number] 04/20/2021 07:54:28 AM EDT [facility] Name Value Range Interpretation Code Description Data Romi rce(s) Supporting Document(s) POC NOVA GLU 115 mg/dL (70-99) H [facility] [place] PERFORMED BY [facility] ID Date Data Source [id number] 04/20/2021 09:26:51 AM EDT [facility] Name Value Range Interpretation Code Description Data Romi rce(s) Supporting Document(s) TOTAL PROTEIN 6.6 g/dL (6.4-8.2) [facility] ALBUMIN 3.0 g/dL (3.5-4.6) L [facility] GLOBULIN 3.6 g/dL (2.7-4.3) [facility] ALB/GLOB RATIO 0.8 RATIO [facility] BILIRUBIN,TOTAL 0.4 mg/dL (0.0-1.0) [facility] PLEASE NOTE:Total bilirubin results may be falselyelevated in patients taking Eltrombopag. BILIRUBIN,CONJUGATED 0.2 mg/dL (0.0-0.3) [facility] BILIRUBIN,UNCONJ. 0.2 mg/dL (0.0-0.7) [facility] ALKALINE PHOSPHATASE 77 U/L (45-117) [facility] AST (SGOT) 23 U/L (11-39) [facility] ALT (SGPT) 16 U/L (12-78) [facility] ID Date Data Source [id number] 04/20/2021 08:35:21 AM EDT [facility] Name Value Range Interpretation Code Description Data Romi rce(s) Supporting Document(s) POTASSIUM 3.9 mmol/L (3.6-5.2) [facility] ID Date Data Source [id number] 04/20/2021 03:54:21 AM EDT [facility] Name Value Range Interpretation Code Description Data Romi rce(s) Supporting Document(s) MAGNESIUM 2.4 mg/dL (1.7-2.4) [facility] ID Date Data Source [id number] 04/20/2021 03:54:21 AM EDT [facility] Name Value Range Interpretation Code Description Data Romi rce(s) Supporting Document(s) SODIUM 140 mmol/L (136-145) [facility] POTASSIUM 3.9 mmol/L (3.6-5.2) [facility] CHLORIDE 109 mmol/L (100-108) H [facility] CO2 28 mmol/L (22-31) [facility] ANION GAP 3 mmol/L (7-16) L [facility] UREA NITROGEN 19 mg/dL (7-24) [facility] CREATININE 0.84 mg/dL (0.80-1.30) [facility] BUN/CREAT RATIO 22.6 RATIO (10.0-20.0) H [facility] GLUCOSE 97 mg/dL (70-99) [facility] CALCIUM 7.9 mg/dL (8.4-10.2) L [facility] GFR >60 ml/min/1.73m2 (>59) [facility] GFR ( AMER) >60 ml/min/1.73m2 (>59) [facility] GFR INTERPRETATION [facility] --NORMAL KIDNEY FUNCTION OR MILD DISEASE - GFR >OR= 60CHRONIC KIDNEY DISEASE - GFR 15 - 59RENAL FAILURE - GFR <15 Est. GFR calculation based on the MDRDstudy equation, which assumes a steadystate for creatinine. Est. GFR should notbe used for medication dosing. ID Date Data Source [id number] 04/20/2021 03:35:37 AM EDT [facility] Name Value Range Interpretation Code Description Data Romi rce(s) Supporting Document(s) CALCIUM IONIZED 5.00 mg/dL (4.64-5.28) [facility] IONIZED CALCIUM NORMALIZED TO PH 7.40 AN D 37 DEGREES C. ID Date Data Source [id number] 04/20/2021 03:28:56 AM EDT [facility] Name Value Range Interpretation Code Description Data Romi rce(s) Supporting Document(s) PT 27.7 s (9.2-11.9) H [facility] INR 2.80 [facility] SUGGESTED THERAPEUTIC RANGES USING INR F ORSTABILIZED ANTICOAGULATED PATIENTS:STANDARD DOSE THERAPY INR 2.0-3.0 DVT, PE, PREVENT DVT OR EMBOLISMHIGH DOSE THERAPY INR 2.5-3.5 PREVENT EMBOLISM FROM MECHANICAL HEART VALVE ID Date Data Source [id number] 04/20/2021 02:59:42 AM EDT [facility] Name Value Range Interpretation Code Description Data Romi rce(s) Supporting Document(s) WBC 8.5 10*3/uL (4.1-11.0) [facility] [place] RBC 3.23 10*6/uL (4.60-6.10) L [facility] HGB 9.8 g/dL (13.5-18.0) L [facility] HCT 29.5 % (41.0-53.0) L [facility] MCV 91.2 fL (80.0-95.0) [facility] MCH 30.4 pg (27.0-32.0) [facility] MCHC 33.4 g/dL (32.0-36.0) [facility] RDW 16.1 % (10.5-14.5) H [facility] PLT 115 10*3/uL (150-450) L [facility] MPV 9.0 fL (7.1-10.7) [facility] ID Date Data Source [id number] 04/19/2021 05:57:39 PM EDT [facility] Name Value Range Interpretation Code Description Data Romi rce(s) Supporting Document(s) POC NOVA GLU 105 mg/dL (70-99) H [facility] [place] [facility] ID Date Data Source [id number] 04/19/2021 02:40:19 PM EDT [address] [address]Rcncgma Name: ADRIAN Lee TAISHAB: 1970Sex: MOrdering Provider: RON LINKAuthorimarta Prov: RON Ernst Provider: Procedure Performed: / XR CHEST PORTABLEExam Date: 04/19/2021 13:24MRN: [id number] Number: [id number] Class: InpatientAccount #: [id number] for Exam: PTX, CT clampedTechnique: AP portable view obtained.Comparison: 04/17/2021Findings: Right-sided chest tubes remain in place. Hazelhurst-Lissett catheter and nasogastric tube endotracheal tube been removed. There is now a large right-sided pneumothorax. Left lung is clear.IMPRESSION: New large right-sided pneumothorax status post chest tube clamping.Findings communicated utilizing critical results protocol.Report electronically signed by: GARCIA BLACKMAN On 04/19/2021 2:40 PMWorkstation ID: [id number] - [id number] Name Value Range Interpretation Code Description Data Romi rce(s) Supporting Document(s) ID Date Data Source [id number] 04/19/2021 01:02:28 PM EDT [facility] Name Value Range Interpretation Code Description Data Romi rce(s) Supporting Document(s) POC NOVA GLU 104 mg/dL (70-99) H [facility] [place] [facility] ID Date Data Source [id number] 04/19/2021 08:26:25 AM EDT [facility] Name Value Range Interpretation Code Description Data Romi rce(s) Supporting Document(s) POC NOVA GLU 109 mg/dL (70-99) H [facility] [place] [facility] ID Date Data Source [id number] 04/19/2021 03:22:11 AM EDT [facility] Name Value Range Interpretation Code Description Data Romi rce(s) Supporting Document(s) CALCIUM IONIZED 4.92 mg/dL (4.64-5.28) [facility] IONIZED CALCIUM NORMALIZED TO PH 7.40 AN D 37 DEGREES C. ID Date Data Source [id number] 04/19/2021 03:18:21 AM EDT [facility] Name Value Range Interpretation Code Description Data Romi rce(s) Supporting Document(s) MAGNESIUM 2.1 mg/dL (1.7-2.4) [facility] ID Date Data Source [id number] 04/19/2021 03:18:21 AM EDT [facility] Name Value Range Interpretation Code Description Data Romi rce(s) Supporting Document(s) SODIUM 134 mmol/L (136-145) L [facility] POTASSIUM 4.4 mmol/L (3.6-5.2) [facility] CHLORIDE 102 mmol/L (100-108) [facility] CO2 26 mmol/L (22-31) [facility] ANION GAP 6 mmol/L (7-16) L [facility] UREA NITROGEN 16 mg/dL (7-24) [facility] CREATININE 0.83 mg/dL (0.80-1.30) [facility] BUN/CREAT RATIO 19.3 RATIO (10.0-20.0) [facility] GLUCOSE 117 mg/dL (70-99) H [facility] CALCIUM 8.3 mg/dL (8.4-10.2) L [facility] GFR >60 ml/min/1.73m2 (>59) [facility] GFR ( AMER) >60 ml/min/1.73m2 (>59) [facility] GFR INTERPRETATION [facility] --NORMAL KIDNEY FUNCTION OR MILD DISEASE - GFR >OR= 60CHRONIC KIDNEY DISEASE - GFR 15 - 59RENAL FAILURE - GFR <15 Est. GFR calculation based on the MDRDstudy equation, which assumes a steadystate for creatinine. Est. GFR should notbe used for medication dosing. ID Date Data Source [id number] 04/19/2021 03:07:30 AM EDT [facility] Name Value Range Interpretation Code Description Data Romi rce(s) Supporting Document(s) PT 13.2 s (9.2-11.9) H [facility] INR 1.27 [facility] SUGGESTED THERAPEUTIC RANGES USING INR F ORSTABILIZED ANTICOAGULATED PATIENTS:STANDARD DOSE THERAPY INR 2.0-3.0 DVT, PE, PREVENT DVT OR EMBOLISMHIGH DOSE THERAPY INR 2.5-3.5 PREVENT EMBOLISM FROM MECHANICAL HEART VALVE ID Date Data Source [id number] 04/19/2021 02:58:50 AM EDT [facility] Name Value Range Interpretation Code Description Data Romi rce(s) Supporting Document(s) WBC 9.3 10*3/uL (4.1-11.0) [facility] [place] RBC 3.49 10*6/uL (4.60-6.10) L [facility] HGB 10.6 g/dL (13.5-18.0) L [facility] HCT 31.8 % (41.0-53.0) L [facility] MCV 91.1 fL (80.0-95.0) [facility] MCH 30.3 pg (27.0-32.0) [facility] MCHC 33.3 g/dL (32.0-36.0) [facility] RDW 16.0 % (10.5-14.5) H [facility] PLT 118 10*3/uL (150-450) L [facility] MPV 9.0 fL (7.1-10.7) [facility] ID Date Data Source [id number] 04/18/2021 06:41:39 PM EDT [facility] Name Value Range Interpretation Code Description Data Romi rce(s) Supporting Document(s) POC NOVA GLU 123 mg/dL (70-99) H [facility] [place] [facility] ID Date Data Source [id number] 04/18/2021 12:41:59 PM EDT [facility] Name Value Range Interpretation Code Description Data Romi rce(s) Supporting Document(s) POC NOVA GLU 121 mg/dL (70-99) H [facility] [place] [facility] ID Date Data Source [id number] 04/18/2021 09:52:51 AM EDT [facility] Name Value Range Interpretation Code Description Data Romi rce(s) Supporting Document(s) POC NOVA GLU 129 mg/dL (70-99) H [facility] [place] [facility] ID Date Data Source [id number] 04/18/2021 11:32:10 AM EDT [facility] Name Value Range Interpretation Code Description Data Romi rce(s) Supporting Document(s) MAGNESIUM 2.5 mg/dL (1.7-2.4) H [facility] ID Date Data Source [id number] 04/18/2021 11:32:10 AM EDT [facility] Name Value Range Interpretation Code Description Data Romi rce(s) Supporting Document(s) POTASSIUM 4.8 mmol/L (3.6-5.2) [facility] ID Date Data Source [id number] 04/18/2021 06:12:19 AM EDT [facility] Name Value Range Interpretation Code Description Data Romi rce(s) Supporting Document(s) POC NOVA GLU 152 mg/dL (70-99) H [facility] [place] [facility] ID Date Data Source [id number] 04/18/2021 03:08:33 AM EDT [facility] Name Value Range Interpretation Code Description Data Romi rce(s) Supporting Document(s) POC NOVA GLU 139 mg/dL (70-99) H [facility] [place] [facility] ID Date Data Source [id number] 04/18/2021 04:50:13 AM EDT [facility] Name Value Range Interpretation Code Description Data Romi rce(s) Supporting Document(s) CALCIUM IONIZED 4.84 mg/dL (4.64-5.28) [facility] IONIZED CALCIUM NORMALIZED TO PH 7.40 AN D 37 DEGREES C. ID Date Data Source [id number] 04/18/2021 04:44:33 AM EDT [facility] Name Value Range Interpretation Code Description Data Romi rce(s) Supporting Document(s) SODIUM 137 mmol/L (136-145) [facility] POTASSIUM 4.1 mmol/L (3.6-5.2) [facility] CHLORIDE 105 mmol/L (100-108) [facility] CO2 24 mmol/L (22-31) [facility] ANION GAP 8 mmol/L (7-16) [facility] UREA NITROGEN 14 mg/dL (7-24) [facility] CREATININE 0.84 mg/dL (0.80-1.30) [facility] BUN/CREAT RATIO 16.7 RATIO (10.0-20.0) [facility] GLUCOSE 121 mg/dL (70-99) H [facility] CALCIUM 7.9 mg/dL (8.4-10.2) L [facility] GFR >60 ml/min/1.73m2 (>59) [facility] GFR ( AMER) >60 ml/min/1.73m2 (>59) [facility] GFR INTERPRETATION [facility] --NORMAL KIDNEY FUNCTION OR MILD DISEASE - GFR >OR= 60CHRONIC KIDNEY DISEASE - GFR 15 - 59RENAL FAILURE - GFR <15 Est. GFR calculation based on the MDRDstudy equation, which assumes a steadystate for creatinine. Est. GFR should notbe used for medication dosing. ID Date Data Source [id number] 04/18/2021 04:44:33 AM EDT [facility] Name Value Range Interpretation Code Description Data Romi rce(s) Supporting Document(s) MAGNESIUM 2.0 mg/dL (1.7-2.4) [facility] ID Date Data Source [id number] 04/18/2021 04:13:28 AM EDT [facility] Name Value Range Interpretation Code Description Data Romi rce(s) Supporting Document(s) PT 12.1 s (9.2-11.9) H [facility] INR 1.16 [facility] SUGGESTED THERAPEUTIC RANGES USING INR F ORSTABILIZED ANTICOAGULATED PATIENTS:STANDARD DOSE THERAPY INR 2.0-3.0 DVT, PE, PREVENT DVT OR EMBOLISMHIGH DOSE THERAPY INR 2.5-3.5 PREVENT EMBOLISM FROM MECHANICAL HEART VALVE ID Date Data Source [id number] 04/18/2021 04:10:04 AM EDT [facility] Name Value Range Interpretation Code Description Data Romi rce(s) Supporting Document(s) WBC 8.1 10*3/uL (4.1-11.0) [facility] [place] RBC 3.49 10*6/uL (4.60-6.10) L [facility] HGB 10.5 g/dL (13.5-18.0) L [facility] HCT 32.0 % (41.0-53.0) L [facility] MCV 91.5 fL (80.0-95.0) [facility] MCH 30.1 pg (27.0-32.0) [facility] MCHC 32.9 g/dL (32.0-36.0) [facility] RDW 15.9 % (10.5-14.5) H [facility] PLT 130 10*3/uL (150-450) L [facility] MPV 8.6 fL (7.1-10.7) [facility] ID Date Data Source [id number] 04/18/2021 12:30:41 AM EDT [facility] Name Value Range Interpretation Code Description Data Romi rce(s) Supporting Document(s) POC NOVA GLU 130 mg/dL (70-99) H [facility] [place] [facility] BY [facility] ID Date Data Source [id number] 04/17/2021 10:03:38 PM EDT [facility] Name Value Range Interpretation Code Description Data Romi rce(s) Supporting Document(s) POC NOVA GLU 122 mg/dL (70-99) H [facility] ID Date Data Source [id number] 04/17/2021 10:32:33 PM EDT [facility] Name Value Range Interpretation Code Description Data Romi rce(s) Supporting Document(s) POTASSIUM 3.9 mmol/L (3.6-5.2) [facility] ID Date Data Source [id number] 04/17/2021 10:20:50 PM EDT [facility] Name Value Range Interpretation Code Description Data Rmoi rce(s) Supporting Document(s) WBC 7.3 10*3/uL (4.1-11.0) [facility] [place] RBC 3.51 10*6/uL (4.60-6.10) L [facility] HGB 10.5 g/dL (13.5-18.0) L [facility] HCT 32.4 % (41.0-53.0) L [facility] MCV 92.3 fL (80.0-95.0) [facility] MCH 29.9 pg (27.0-32.0) [facility] MCHC 32.4 g/dL (32.0-36.0) [facility] RDW 16.0 % (10.5-14.5) H [facility] PLT 134 10*3/uL (150-450) L [facility] MPV 8.7 fL (7.1-10.7) [facility] ID Date Data Source [id number] 04/17/2021 07:58:36 PM EDT [facility] Name Value Range Interpretation Code Description Data Romi rce(s) Supporting Document(s) POC NOVA GLU 133 mg/dL (70-99) H [facility] ID Date Data Source [id number] 04/17/2021 05:59:37 PM EDT [facility] Name Value Range Interpretation Code Description Data Romi rce(s) Supporting Document(s) POC NOVA GLU 136 mg/dL (70-99) H [facility] ID Date Data Source [id number] 04/17/2021 05:28:31 PM EDT [facility] Name Value Range Interpretation Code Description Data Romi rce(s) Supporting Document(s) POC SOURCE [facility] PUNCTURE SITE [facility] O2 THERAPY [facility] POC FIO2 40 [facility] KB TEST [facility] MODE [facility] PEEP/MAP 8 CM H2O [facility] PRESSURE SUPPORT 8 CM H2O [facility] SP RATE 17 BMP [facility] POC PH 7.37 pH (7.35-7.45) [facility] POC PCO2 40.3 MMHG (32.0-48.0) [facility] POC PO2 60 MMHG (83-108) L [facility] POC SAT O2 90 % (95-99) L [facility] POC BASE DEFICIT 2 MMOL/L (0-2) [facility] POC HCO3 23.1 MMOL/L (21.0-29.0) [facility] POC TOTAL CO2 24 MMOL/L (23.0-32.0) [facility] ID Date Data Source [id number] 04/17/2021 04:02:12 PM EDT [facility] Name Value Range Interpretation Code Description Data Romi rce(s) Supporting Document(s) POC NOVA GLU 131 mg/dL (70-99) H [facility] ID Date Data Source [id number] 04/17/2021 05:41:01 PM EDT [facility] Name Value Range Interpretation Code Description Data Romi rce(s) Supporting Document(s) POTASSIUM 4.6 mmol/L (3.6-5.2) [facility] ID Date Data Source [id number] 04/17/2021 02:30:31 PM EDT [facility] Name Value Range Interpretation Code Description Data Romi rce(s) Supporting Document(s) POC NOVA GLU 131 mg/dL (70-99) H [facility] [place] [facility] ID Date Data Source [id number] 04/17/2021 01:32:24 PM EDT [facility] Name Value Range Interpretation Code Description Data Romi rce(s) Supporting Document(s) POC NOVA GLU 112 mg/dL (70-99) H [facility] PERFORMED BY [facility] STA[facility] ID Date Data Source [id number] 04/17/2021 12:32:32 PM EDT [facility] Name Value Range Interpretation Code Description Data Romi rce(s) Supporting Document(s) POC NOVA GLU 115 mg/dL (70-99) H [facility] PERFORMED BY [facility] ID Date Data Source [id number] 04/17/2021 12:03:59 PM EDT [address] [id number] Name: ADRIAN SUMNERB: 1970Sex: MOrdering Provider: RON Renteria Prov: RON Ernst Provider: Procedure Performed: / XR CHEST PORTABLEExam Date: 04/17/2021 11:45MRN: [id number] Number: [id number] Class: InpatientAccount #: [id number] Exam: Evaluate for Hazelhurst Lissett catheter placement and/or endotracheal tubeTechnique: AP portable view obtained.Comparison: NoneFindings: The tip of the ET tube is 4.3 cm above the francine. The NG tube is coiled in the esophagus with its tip in the proximal esophagus. The tip of the Hazelhurst-Lissett catheter is in the proximal right pulmonary artery. Right-sided chest tubes are present. There is probable mild interstitial pulmonary edema. The lungs are otherwise clear. No pleural effusion or pneumothorax is seen. The cardiomediastinal silhouette is unremarkable.IMPRESSION: 1. NG tube is coiled in the esophagus. Repositioning is recommended.2. Appropriate positions of ET tube and Hazelhurst-Lissett catheter.3. Probable mild interstitial pulmonary edema.This finding was communicated via the departmental critical results reporting protocol.Report electronically signed by: MERCEDES PEÑA On 04/17/2021 12:03 PMWorkstation ID: [id number] Name Value Range Interpretation Code Description Data Romi rce(s) Supporting Document(s) ID Date Data Source [id number] 04/17/2021 12:03:01 PM EDT [facility] Name Value Range Interpretation Code Description Data Romi rce(s) Supporting Document(s) POC SOURCE [facility] CP BYPASS [facility] POC MIX BARRY PO2 46 mm[Hg] (35-45) H [facility] POC MIX BARRY SO2 77 % (60-80) [facility] P[facility] HCT 31 % (41.0-53.0) L [facility] ID Date Data Source [id number] 04/17/2021 12:03:01 PM EDT [facility] Name Value Range Interpretation Code Description Data Romi rce(s) Supporting Document(s) POC SOURCE [facility] PUNCTURE SITE [facility] O2 THERAPY [facility] POC FIO2 80 [facility] KB TEST [facility] MODE [facility] TIDAL VOLUME 550 mL [facility] RATE 18 BPM [facility] PEEP/MAP 10 CM H2O [facility] PRESSURE SUPPORT 12 CM H2O [facility] SP RATE 0 BMP [facility] POC PH 7.33 pH (7.35-7.45) L [facility] POC PCO2 51.0 MMHG (32.0-48.0) H [facility] POC PO2 228 MMHG (83-108) H [facility] POC SAT O2 100 % (95-99) H [facility] POC BASE EXCESS 0 MMOL/L (0-3) [facility] P[facility] HCO3 26.8 MMOL/L (21.0-29.0) [facility] POC TOTAL CO2 28 MMOL/L (23.0-32.0) [facility] ID Date Data Source [id number] 04/17/2021 11:30:10 AM EDT [facility] Name Value Range Interpretation Code Description Data Romi rce(s) Supporting Document(s) EKG [facility] BZOZSz8pWfPMSiOsv0JoFsEpBWCkRC5yjve3F9A9aEFiC1UirBChe2ktV5IcK5CfNQDvZUCIAR1IyRJb jb2 [file] rVUPN7tE9L8yW1EGl0b/1T7wYLUfX0H76fV+RUvKvbtpVDy74CHrDf6p0ai+J Carlos/dRUSX714M1P5/J [file] oFZyZz+VjNb6lkQiVlfu6Eiaifv1A8dww6fsLV/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 [file] AwMDAwMDEyOTcgMDAwMDAgbiAKMDAwMDAwMTQwNiAw UTPcUSCySKneIOYaLRE5ITQwVQTsXOLuLE2tEvWwPSVoWRW7EGemAEDfJFAfyjZZHAXdYEVcPVswLDQd UDSvMFYuICihQCAcGSPbVBV1VDTtVCHfVR6qNjPeVJNeEEJpWKYlQcA4HnHeBaQZrSYukIvlmsv3KEsl Y7u7YZMoEHblEZ3ljqFvGZUsYyxdMn0awKO3IWDaZnfZCg2Pv1KoeeC5hzRbFyTmOSw2YitsFQHIMe== ID Date Data Source [id number] 04/17/2021 11:14:48 AM EDT [facility] Name Value Range Interpretation Code Description Data Romi rce(s) Supporting Document(s) &PDF [facility] PJCHTt9sWyWMCiLm38/RUWdzGOXar0EcNAlwZPe3URwqWTRnW4NfrWlgUHTTByGuL3YVHZGjOSZuTSjd pYy [file] ICAgICAgICAgICAgICAgICAgICAgICAgICAgICAgICAgICAgICAgICAgICAgICAgICAgICAgICAgICAg ICAgICAgICAgICAgDQogICAgICAgICAgICAgICAgIC AgICAgICAgICAgICAgICAgICAgICAgICAgICAgICAgICAgICAgICAgICAgICAgICAgICAgICAgICAgIC AgICAgICAgICAgICAgICAgICAgICAgDQogICAgICAgICAgICAgICAgICAgICAgICAgICAgICAgICAgIC AgICAgICAgICAgICAgICAgICAgICAgICAgICAgICAg ICAgICAgICAgICAgICAgICAgICAgICAgICAgICAgICAgDQogICAgICAgICAgICAgICAgICAgICAgICAg ICAgICAgICAgICAgICAgICAgICAgICAgICAgICAgICAgICAgICAgICAgICAgICAgICAgICAgICAgICAg ICAgICAgICAgICAgICAgDQogICAgICAgICAgICAgIC AgICAgICAgICAgICAgICAgICAgICAgICAgICAgICAgICAgICAgICAgICAgICAgICAgICAgICAgICAgIC AgICAgICAgICAgICAgICAgICAgICAgICAgDQogICAgICAgICAgICAgICAgICAgICAgICAgICAgICAgIC AgICAgICAgICAgICAgICAgICAgICAgICAgICAgICAg ICAgICAgICAgICAgICAgICAgICAgICAgICAgICAgICAgICAgDQogICAgICAgICAgICAgICAgICAgICAg ICAgICAgICAgICAgICAgICAgICAgICAgICAgICAgICAgICAgICAgICAgICAgICAgICAgICAgICAgICAg ICAgICAgICAgICAgICAgICAgDQogICAgICAgICAgIC AgICAgICAgICAgICAgICAgICAgICAgICAgICAgICAgICAgICAgICAgICAgICAgICAgICAgICAgICAgIC AgICAgICAgICAgICAgICAgICAgICAgICAgICAgDQogICAgICAgICAgICAgICAgICAgICAgICAgICAgIC AgICAgICAgICAgICAgICAgICAgICAgICAgICAgICAg ICAgICAgICAgICAgICAgICAgICAgICAgICAgICAgICAgICAgICAgDQogICAgICAgICAgICAgICAgICAg ICAgICAgICAgICAgICAgICAgICAgICAgICAgICAgICAgICAgICAgICAgICAgICAgICAgICAgICAgICAg PNWrAUKxKPWuNWWxJBJfASVfGWBvHYm9U2zoSRUsCG CjVC1tPOj1Rt3+YMyCZkOnZFS2qjKkiA3NXS7ni7JoVJqpRPIpd9GnSWh6VU1BWIPlWZwyYY6TIRpttd 0RRIWeCMBxtYOAy7auUpGhXDG6MGWgPpngDF7LVKQvZ8eqixCbMWPzKCFVLFsjMJKMXCnrJPKISD3PZr NnF6SqoK39ASMWXe0+WDllcdOeIgeORpEtYETne2Cn IBz1PE7VVKNqZYtzAZ9WVTQcdR8bVYqgHT1TGbZmJCXbWGSJDgHoC22fgSMdVFh6U6UzHhQnFBQoMmco ZXMgPDwvTmFtZXMgWyBdDQogID4+ID4+RRvfGH4ZGRcvaeKxVKOuKs7JCWFjNYN4BWNfhPSjFoObMCIC ZLqkGJ8FfISwANM7iZ9hURurBTKpIUFxI2hEBqHpvI tjLJ13lVcxkxCvyQEpWGj+Dw5DIF0me7MiLLy0ghGmPPviEZS4HFdhAYHcPTZwLTCeSBC1SZT3IZNBWq WuENGuJUIzJMnsPBNgYKTljh9KBCUfZCHlKQY6UESbQKWyLZDzRWhdQQXqITXiEfW2NOQdJAWwPX7XMm UoPFXgBEWiODuuSTOrHEBvgz3IEVSsCSFoJfFqLOKo JWRnYVZoRUriRGDzKUXiEzShXOKcVROsXS4NTpZvCWSkQQJhHDrzAFEoTIKgxn2NTEKsKQRhUrV6LCZh BVDlHSRyWGboLVTlSTG0FAX7DYSuIMCrXN6EOeLqQLNmQXbzMgZwFFZfNFGmlj4QGGNeFRUaVPFnVJJx OTAaBUOqUSluVULgFQA7TcJ1PAPnUCUdAZ3CDpDyDB IqWEz3XODeBQMuTFMgly0QFRJcKWCqUOC2VJFzMEFcUFRiMEsuYREtLAR8ZVStXDQzHHHqQW9FOiXpFS GaKGc0SLnaJPFyBIJpcg5EXUIcHXYzKOfmJdSvWDXtIWJrLXykIMNaNIRgSHM5BJSfHRVhTJ2RWtKwWR NgRUMjXFRaWQPhLBNcbj6KLPTfCYNcUlA4VySoXJLz BACkJWmkBMBqEDHlCFXxLVOaWWNyQY4TJtYsENXzPfN6BsHfNKUaHVMyrd0ZKCLnKPCtMyIqPUMsAAGt WZRpFFo2haNrlQRyGYk2IS4XQ3UjujBqMrPIPa4Gx941WQZvSOLrCo3PN4rdAt7kCWTtBXJAPc3ISUg0 HhAzXDv7SBH9IGG5DFArKAl2HXH8LmYoF0O1HXG0Db I+SWv9VNRgFsP1PVS1HyXvXJO9KEleCOalPOU4Yqm4ZhYoRl4zJKAQXn3+DQpzdGFydHhyZWYNCjIyNj SwAIuoHHVNLe8A ID Date Data Source [id number] 04/17/2021 11:20:26 AM EDT [facility] Name Value Range Interpretation Code Description Data Romi rce(s) Supporting Document(s) POC NOVA GLU 73 mg/dL (70-99) [facility] ID Date Data Source [id number] 04/17/2021 12:39:18 PM EDT [facility] Name Value Range Interpretation Code Description Data Romi rce(s) Supporting Document(s) MAGNESIUM 3.8 mg/dL (1.7-2.4) H [facility] ID Date Data Source [id number] 04/17/2021 12:39:18 PM EDT [facility] Name Value Range Interpretation Code Description Data Romi rce(s) Supporting Document(s) SODIUM 143 mmol/L (136-145) [facility] POTASSIUM 4.4 mmol/L (3.6-5.2) [facility] CHLORIDE 111 mmol/L (100-108) H [facility] CO2 28 mmol/L (22-31) [facility] ANION GAP 4 mmol/L (7-16) L [facility] UREA NITROGEN 16 mg/dL (7-24) [facility] CREATININE 1.20 mg/dL (0.80-1.30) [facility] BUN/CREAT RATIO 13.3 RATIO (10.0-20.0) [facility] GLUCOSE 66 mg/dL (70-99) L [facility] CALCIUM 9.2 mg/dL (8.4-10.2) [facility] GFR >60 ml/min/1.73m2 (>59) [facility] GFR ( AMER) >60 ml/min/1.73m2 (>59) [facility] GFR INTERPRETATION [facility] --NORMAL KIDNEY FUNCTION OR MILD DISEASE - GFR >OR= 60CHRONIC KIDNEY DISEASE - GFR 15 - 59RENAL FAILURE - GFR <15 Est. GFR calculation based on the MDRDstudy equation, which assumes a steadystate for creatinine. Est. GFR should notbe used for medication dosing. ID Date Data Source [id number] 04/17/2021 12:27:17 PM EDT [facility] Name Value Range Interpretation Code Description Data Romi rce(s) Supporting Document(s) CALCIUM IONIZED 5.48 mg/dL (4.64-5.28) H [facility] IONIZED CALCIUM NORMALIZED TO PH 7.40 AN D 37 DEGREES C. ID Date Data Source [id number] 04/17/2021 12:17:31 PM EDT [facility] Name Value Range Interpretation Code Description Data Romi rce(s) Supporting Document(s) WBC 6.1 10*3/uL (4.1-11.0) [facility] RBC 3.03 10*6/uL (4.60-6.10) L [facility] HGB 9.1 g/dL (13.5-18.0) L [facility] HCT 27.6 % (41.0-53.0) L [facility] MCV 91.0 fL (80.0-95.0) [facility] MCH 29.9 pg (27.0-32.0) [facility] MCHC 32.9 g/dL (32.0-36.0) [facility] RDW 15.6 % (10.5-14.5) H [facility] PLT 122 10*3/uL (150-450) L [facility] MPV 8.4 fL (7.1-10.7) [facility] ID Date Data Source [id number] 04/17/2021 10:42:31 AM EDT [facility] Name Value Range Interpretation Code Description Data Romi rce(s) Supporting Document(s) POC SOURCE [facility] CP BYPASS [facility] POC PH 7.19 pH (7.35-7.45) L [facility] POC PCO2 64.2 MMHG (32.0-48.0) H [facility] POC PO2 99 MMHG (83-108) [facility] POC SAT O2 96 % (95-99) [facility] POC BASE DEFICIT 4 MMOL/L (0-2) H [facility] POC HCO3 24.4 MMOL/L (21.0-29.0) [facility] POC TOTAL CO2 26 MMOL/L (23.0-32.0) [facility] POC HCT 29 % (41.0-53.0) L [facility] POC SODIUM 139 MMOL/L (136-145) [facility] POC POTASSIUM 4.1 MMOL/L (3.6-5.2) [facility] POC IONIZED CALCIUM 6.3 MG/DL (4.6-5.3) H [facility] POC GLU 85 MG/DL (70-99) [facility] ID Date Data Source [id number] 04/17/2021 10:42:26 AM EDT [facility] Name Value Range Interpretation Code Description Data Roim rce(s) Supporting Document(s) POC ACT 109 s (80-140) [facility] ID Date Data Source [id number] 04/17/2021 12:24:25 PM EDT [facility] Name Value Range Interpretation Code Description Data Romi rce(s) Supporting Document(s) APTT 24.1 s (22.0-34.3) [facility] ID Date Data Source [id number] 04/17/2021 12:24:25 PM EDT [facility] Name Value Range Interpretation Code Description Data Romi rce(s) Supporting Document(s) PT 13.0 s (9.2-11.9) H [facility] INR 1.25 [facility] SUGGESTED THERAPEUTIC RANGES USING INR F ORSTABILIZED ANTICOAGULATED PATIENTS:STANDARD DOSE THERAPY INR 2.0-3.0 DVT, PE, PREVENT DVT OR EMBOLISMHIGH DOSE THERAPY INR 2.5-3.5 PREVENT EMBOLISM FROM MECHANICAL HEART VALVE ID Date Data Source [id number] 04/17/2021 09:54:59 AM EDT [facility] INFORMATIONPatient MRN Name Date of Age Gend*PT [id number] Adrian Andrews 1970 50 years M SDAPT Location Admission Date/Time Visit ID Attending Provider --- --- --- --- EPI ID CSN Admitting Provider [id number] ---AirwayPatient location during procedure: ORUrgency: electiveDifficult airway: noAdvanced airway equipment used: noStaffingPerformed by: Zoey MurilloleAnesthesiologist: Rowan Macedo MDIndications and Patient ConditionIndications for airway management: anesthesiaPreoxygenated: yesPatient position: sniffingIn-line stabilization: noMask ventilation: 0 - not attemptedFinal Airway/ApproachesFinal airway type: ETTNumber of attempts at final approach: 1Number of other approaches attempted: 0Final Airway DetailsFinal ETT airway: ETT - blockerCuffed: yesTechnique used for successful ETT placement: direct laryngoscopyCricoid pressure: yesRSI: noInsertion site: oralBlade type/size: MAC 3.5ETT size: 8.0 mmMeasured from: lipsETT to lips: 24 cmPlacement verified by: chest auscultation, bronchoscopy, + ETCO2 and palpationof cuffAuscultation: equal breath sounds bilateral and CTAGrade view: grade I - full view of glottis Name Value Range Interpretation Code Description Data Romi rce(s) Supporting Document(s) ID Date Data Source [id number] 04/17/2021 09:49:33 AM EDT [facility] Name Value Range Interpretation Code Description Data Romi rce(s) Supporting Document(s) POC SOURCE [facility] CP BYPASS [facility] POC PH 7.29 pH (7.35-7.45) L [facility] POC PCO2 48.7 MMHG (32.0-48.0) H [facility] POC PO2 306 MMHG (83-108) H [facility] POC SAT O2 100 % (95-99) H [facility] POC BASE DEFICIT 3 MMOL/L (0-2) H [facility] POC HCO3 23.2 MMOL/L (21.0-29.0) [facility] POC TOTAL CO2 25 MMOL/L (23.0-32.0) [facility] POC HCT 26 % (41.0-53.0) L [facility] POC SODIUM 134 MMOL/L (136-145) L [facility] POC POTASSIUM 5.0 MMOL/L (3.6-5.2) [facility] POC IONIZED CALCIUM 5.0 MG/DL (4.6-5.3) [facility] POC GLU 164 MG/DL (70-99) H [facility] ID Date Data Source [id number] 04/17/2021 09:49:28 AM EDT [facility] Name Value Range Interpretation Code Description Data Romi rce(s) Supporting Document(s) POC SOURCE [facility] CP BYPASS [facility] POC VENOUS PH 7.25 pH (7.33-7.43) L [facility] POC VENOUS PCO2 51.9 MM HG (38.0-50.0) H [facility] POC VENOUS PO2 49 MM HG (30-50) [facility] POC VENOUS SO2 77 % (60-85) [facility] POC VENOUS BASE DEFICIT 4 MMOL/L (0-2) H [facility] POC VENOUS HCO3 23.0 MMOL/L (23.0-27.0) [facility] POC VENOUS TOTAL CO2 25 MMOL/L (24-28) [facility] POC HCT 26 % (41.0-53.0) L [facility] POC SODIUM 133 MMOL/L (136-145) L [facility] POC POTASSIUM 5.0 MMOL/L (3.6-5.2) [facility] POC IONIZED CALCIUM 5.1 MG/DL (4.6-5.3) [facility] POC GLU 162 MG/DL (70-99) H [facility] ID Date Data Source [id number] 04/17/2021 09:49:23 AM EDT [facility] Name Value Range Interpretation Code Description Data Romi rce(s) Supporting Document(s) POC ACT 450 s (80-140) H [facility] ID Date Data Source [id number] 04/17/2021 09:16:57 AM EDT [facility] Name Value Range Interpretation Code Description Data Romi rce(s) Supporting Document(s) POC SOURCE [facility] CP BYPASS [facility] POC VENOUS PH 7.27 pH (7.33-7.43) L [facility] POC VENOUS PCO2 43.6 MM HG (38.0-50.0) [facility] POC VENOUS PO2 50 MM HG (30-50) [facility] POC VENOUS SO2 80 % (60-85) [facility] POC VENOUS BASE DEFICIT 7 MMOL/L (0-2) H [facility] POC VENOUS HCO3 19.8 MMOL/L (23.0-27.0) L [facility] POC VENOUS TOTAL CO2 21 MMOL/L (24-28) L [facility] POC HCT 22 % (41.0-53.0) L [facility] POC SODIUM 134 MMOL/L (136-145) L [facility] POC POTASSIUM 5.4 MMOL/L (3.6-5.2) H [facility] POC IONIZED CALCIUM 4.8 MG/DL (4.6-5.3) [facility] POC GLU 132 MG/DL (70-99) H [facility] ID Date Data Source [id number] 04/17/2021 09:23:22 AM EDT [facility] Name Value Range Interpretation Code Description Data Romi rce(s) Supporting Document(s) POC ACT 521 s (80-140) H [facility] ID Date Data Source [id number] 04/17/2021 08:50:23 AM EDT [facility] Name Value Range Interpretation Code Description Data Romi rce(s) Supporting Document(s) POC SOURCE [facility] CP BYPASS [facility] POC PH 7.23 pH (7.35-7.45) L [facility] POC PCO2 54.0 MMHG (32.0-48.0) H [facility] POC PO2 354 MMHG (83-108) H [facility] POC SAT O2 100 % (95-99) H [facility] POC BASE DEFICIT 5 MMOL/L (0-2) H [facility] POC HCO3 22.5 MMOL/L (21.0-29.0) [facility] POC TOTAL CO2 24 MMOL/L (23.0-32.0) [facility] POC HCT 32 % (41.0-53.0) L [facility] POC SODIUM 139 MMOL/L (136-145) [facility] POC POTASSIUM 4.3 MMOL/L (3.6-5.2) [facility] POC IONIZED CALCIUM 5.7 MG/DL (4.6-5.3) H [facility] POC GLU 114 MG/DL (70-99) H [facility] PER[facility] LAB [facility] ID Date Data Source [id number] 04/17/2021 09:06:52 AM EDT [facility] Name Value Range Interpretation Code Description Data Romi rce(s) Supporting Document(s) POC ACT 555 s (80-140) H [facility] PERFORMED BY [facility] STAFF ID Date Data Source [id number] 04/21/2021 05:07:45 PM EDT [facility] [place], [place] [address]Tel# Surgical Pathology ReportPatient Name: ADRIAN ANDREWS: 1970Accession #:[id number](s) ReceivedA: Mitral valve leafletsClinical Diagnosis and HistoryRheumatic mitral regurgitation and stenosisDIAGNOSISMITRAL VALVE, EXCISION: EXTENSIVE FIBROSIS, FUSED CHORDAE AND FOCAL CALCIFICATIONSCommentsThe section exhibits valvular changes consistent with and suggestive ofrheumatic valvulitis. Gross DescriptionReceived in formalin labeled "mitral valve leaflets" are two sharpe- white totan-yellow irregular fragments of valvular tissue with multiple thickenedfused chordae tendinea measuring up to 1.0 cm. The fragments measure 1.5x 0.5 x 0.5 cm and 2.5 x 2.5 x 0.8 cm. The fragments are seriallysectioned to show abundant myxoid change. No calcifications orvegetations are identified. Senior Program Planner sections are submitted as [id number] Reported: 2020Electronically Signed Out By Miller Lloyd MD [facility] [place] [address] [id number] component performed [facility], [facility], [address] [place] [address], [phone].Reported at [facility], [address] [place] [address], [phone]. This report may includeimmunohistochemical or in-situ hybridization results. Testing wasdeveloped and the performance characteristics determined by [employer] as required by CLIA '88. The FDA hasdetermined that approval for specific use is not necessary for clinicaluse. The quality of Hematoxylin and Eosin stains and as applicable, forall immunohistochemical and/or special stains, including positive andnegative controls, were reviewed and considered appropriate.ICD codes I05.2CPT codesA: 88789S Name Value Range Interpretation Code Description Data Romi rce(s) Supporting Document(s) ID Date Data Source [id number] 04/17/2021 07:55:57 AM EDT Lab [facility] Name Value Range Interpretation Code Description Data Romi rce(s) Supporting Document(s) POC SOURCE [facility] CP BYPASS [facility] [facility] P[facility] PH 7.27 pH (7.35-7.45) [facility] PCO2 44.8 MMHG (32.0-48.0) [facility] PO2 442 MMHG (83-108) [facility] SAT O2 100 % (95-99) [facility] P[facility] BASE DEFICIT 6 MMOL/L (0-2) [facility] P[facility] HCO3 20.6 MMOL/L (21.0-29.0) L [facility] P[facility] TOTAL CO2 22 MMOL/L (23.0-32.0) L [facility] PERFORMED BY [facility] POC HCT 33 % (41.0-53.0) L [facility] P[facility] SODIUM 139 MMOL/L (136-145) [facility] POTASSIUM 4.1 MMOL/L (3.6-5.2) [facility] P[facility] IONIZED CALCIUM 4.9 MG/DL (4.6-5.3) [facility] P[facility] GLU 92 MG/DL (70-99) [facility] PER[facility] LAB [facility] ID Date Data Source [id number] 04/17/2021 07:55:52 AM EDT [facility] Name Value Range Interpretation Code Description Data Romi rce(s) Supporting Document(s) POC ACT 136 s (80-140) [facility] ID Date Data Source [id number] 04/17/2021 07:18:08 AM EDT [facility] INFORMATIONPatient MRN Name Date of Age Gend*PT [id number] Adrian Andrews 1970 50 years M SDAPT Location Admission Date/Time Visit ID [facility] --- Chandler Corrigan MD([id number]) EPI ID CSN Admitting Provider [id number] Chandler Corrigan MD([id number])H&P reviewed. No changes Name Value Range Interpretation Code Description Data Romi rce(s) Supporting Document(s) ID Date Data Source [id number] 04/17/2021 06:32:20 AM EDT [facility] Name Value Range Interpretation Code Description Data Romi rce(s) Supporting Document(s) POC NOVA GLU 94 mg/dL (70-99) [facility] PERFORMED BY [facility] ID Date Data Source [id number] 04/17/2021 12:29:33 PM EDT [facility] SPEC EXP DATE 04/18/2021TEST ING SITE PERFORMED AT [address] [place] [address] [id number] NUMBER [id number] COMPONENT TYPE LEUKOPOOR RED CELLSUNIT DIVISION 00STATUS OF UNIT REL FROM ALLOCTRANSFUSION STATUS OK TO TRANSFUSECROSSMATCH RESULT COMPATIBLEUNIT NUMBER [id number] COMPONENT TYPE LEUKOPOOR RED CELLSUNIT DIVISION 00STATUS OF UNIT REL FROM ALLOCTRANSFUSION STATUS OK TO TRANSFUSECROSSMATCH RESULT COMPATIBLE Name Value Range Interpretation Code Description Data Romi rce(s) Supporting Document(s) TRANSFUSE RED CELLS [facility] TESTING SITE PERFORMED AT [address] [place] [address] [id number] ID Date Data Source [id number] 04/16/2021 09:44:31 AM EDT [facility] INFORMATIONPatient MRN Name Date of Age Gend*PT [id number] Adrian Andrews 1970 50 years M OPPT Location Admission Date/Time Visit ID Attending Provider --- --- --- Chandler Corrigan MD([id number]) EPI ID CSN Admitting Provider [id number] ---Addended by: JIA MCKEON on: 04/16/2021 09:44 AM Modules accepted: Orders Name Value Range Interpretation Code Description Data Romi rce(s) Supporting Document(s) ID Date Data Source [id number] 04/14/2021 11:55:35 AM EDT [facility] INFORMATIONPatient MRN Name Date of Age Gend*PT [id number] Adrian Andrews 1970 50 years M OPPT Location Admission Date/Time Visit ID Attending Provider --- --- --- Chandler Corrigan MD([id number]) EPI ID CSN Admitting Provider [id number] ---HISTORY PHYSICALName: Adrian Andrews : 1970 Sex: male Care Provider: [facility] Physician: Dr. CorriganInformant: The patient who is reliable.Chief Complaint: "I need heart surgery."HISTORY OF PRESENT ILLNESS: 50 years old white male who reports increasingdyspnea on exertion over the last 18 months. He states he had been evaluated byhis PCP and had follow-up with different provider in the office who referred himto the emergency department. Patient then underwent additional work-up. Heunderwent cardiac catheterization on 12/10/2020. Catheterization found minimaldiffuse coronary artery disease. He had transesophageal echo on 01/29/2021.Echo estimates ejection fraction is 60 to 65%. "The mitral valve appearsseverely thickened. There is restriction of leaflet motion and prolapse ofanterior mitral leaflet." The mean transmitral gradient is 7 and peak [id number] mmHg corresponding to moderate mitral stenosis. Patient reports dyspnea withminimal exertion such as getting dressed, shortness of breath at rest, fatigue,and chest pain. He reports of chest pain as pain, pressure, and tightness. Hestates these occur both at rest and with exertion. Symptoms are relieved with 2to 4 minutes of rest and relaxation.The patient met with Dr. Corrigan, options were discussed and they have elected tounder go REPAIR OR REPLACEMENT, MITRAL VALVE, MINIMALLY INVASIVE, RIGHTTHORACOTOMY APPROACH, USING HEARTPORT TECHNIQUE, TRANSESOPHAGEAL ECHOCARDIOGRAMon 04/17/2021.PAST MEDICAL HISTORY:Past Medical History:Diagnosis Date Complex regional pain syndrome i of left lower limb COPD (chronic obstructive pulmonary disease) Coronary artery disease Per catheterization on 12/10/2020 "minimal diffuse coronary artery disease." Hyperlipidemia Migraines Nephrolithiasis Pericarditis 2010? Peripheral vascular disease 12/09/2020 Rheumatic mitral regurgitation Followed by Dr Parish Right carotid bruit 12/09/2020AST SURGICAL HISTORY:Past Surgical History:Procedure Laterality Date APPENDECTOMY CARDIAC CATHETERIZATION Right 12/10/2020 Procedure: Right heart cath; Surgeon: Susan House MD; Laterality: Right;urgent cath CARDIAC CATHETERIZATION Left 12/10/2020 Procedure: Left heart cath; Surgeon: Susan House MD; Laterality: Left; FEMUR FRACTURE SURGERY Bilateral as a child INGUINAL HERNIA REPAIR Left LITHOTRIPSY multiple times SPINAL CORD STIMULATOR IMPLANT [address] [facility]:AllergiesAllergen Reactions Codeine RashMEDICATIONS:Prior to Admission medicationsMedication Sig Start Date End Date Taking? Authorizing Provideralbuterol (PROVENTIL HFA;VENTOLIN HFA) 108 (90 Base) MCG/ACT inhaler Inhale 2puffs every 4 (four) hours as needed for wheezing 12/06/20 HistoricalProvider, Iggymitriptyline (ELAVIL) 100 MG tablet Take 100 mg by mouth nightly 11/25/20Historical Provider, Iggytorvastatin (LIPITOR) 80 MG tablet Take 80 mg by mouth nightly 12/06/20Historical Provider, Buprenorphine 20 MCG/HR PTWK Place 20 mcg on the skin every 7 days on Wednesday11/21/20 Historical Provider, buprenorphine HCl-naloxone HCl (SUBOXONE) 8-[address] 1 tablet under thetongue 4 (four) times a day Managed by Dr. Chandler Basilio Historical Provider,ezetimibe (ZETIA) 10 MG tablet Take 1 tablet (10 mg total) by mouth daily02/06/21 Jennifer Dang PAFLOVENT DISKUS 100 MCG/BLIST AEPB Inhale 1 puff 2 (two) times a day 11/06/20Historical Provider, gabapentin (NEURONTIN) 800 MG tablet Take 800 mg by mouth 3 (three) times a day12/06/20 Historical Provider, HYDROcodone-Ibuprofen 10-200 MG TABS Take 1 tablet by mouth 4 (four) times a dayas needed (for pain) Historical Provider, DILIPPIRIVA RESPIMAT 2.5 MCG/ACT AERS Inhale 2 puffs daily 11/06/20 HistoricalProvider, MDSUMAtriptan (IMITREX) 100 MG tablet Take 100 mg by mouth once as needed (atonset of migraine. May repeat dose in 2 hours if needed. MDD : 2 tablets)12/06/20 Historical Provider, Iggyspirin EC 81 MG EC tablet Take 1 tablet (81 mg total) by mouth daily Voconsuelo Parish MDibuprofen (ADVIL,MOTRIN) 200 MG tablet Take 200 mg by mouth every 8 (eight)hours as needed 04/14/21 Historical Provider, DILIPocial HistoryTobacco Use Smoking status: Current Every Day Smoker Packs/day: 1.00 Years: 26.00 Pack years: 26.00 Types: Cigarettes Smokeless tobacco: Never UsedVaping Use Vaping Use: Never usedSubstance Use Topics Alcohol use: Not Currently Drug use: NeverFamily HistoryProblem Relation Age of Onset Heart disease Mother Heart attack FatherREVIEW OF SYSTEMS:Constitution: Weight stable. Denies fever or chills. Caffeine intake: 3-4cups/day. He has fatigue.HEENT: Denies any blurred vision, double vision, dizziness, tinnitus, dysphagiaor headaches.Respiratory: Reports shortness of breath at rest, and dyspnea with mi nimalexertion. Denies cough, yellow sputum production or wheezing.Cardiovascular: Reports chest pain, pressure and tightness as above. Denies anyparoxysmal nocturnal dyspnea or orthopnea.Muscle/Skeletal System: Reports chronic left leg, back, and left knee pain.Neurologic: Reports left leg, back, and left knee numbness and tingling.Reports left arm numbness, tingling. Denies any tremors or syncope.GI: Denies any nausea, vomiting, diarrhea, constipation or melena.: Denies any dysuria, hematuria or nocturia.Endocrine: Denies polyuria, polydipsia or polyphagia. Denies any heat or coldintolerance or night sweats.Hematology: Denies any bleeding or bruising tendencies.DNR Status: Full Code per the patient.HCP: Yes per patient.PHYSICAL EXAM:General: He is a 50 years old, pleasant white male, in no acute distress at timeof examination. Vitals on arrival to the office are BP 113/64 (BP Location:Right upper arm, Patient Position: Sitting) | Pulse 62 | Resp 18 | SpO2 97%There is no height or weight on file to calculate BMI..Skin is pink warm and dry.HEENT: He is normocephalic, atraumatic. [place] conjunctivae. Anicteric sclerae.Pupils are equal, round, reactive to light and accommodation. Extraocularmovements are intact. Ears: Without drainage or lesion. Mouth: Dentition is inpoor repair. He has a grade 1 airway. Neck is supple midline without cervicaladenopathy. There is no tonsillo pharyngeal congestion. Mucous membranes aremoist. There are no oral lesions. No jugular distention.CHEST/BREAST: A/P less than transverse. Breast exam declined.LUNGS: Clear to auscultation. No wheezes, rhonchi or aircraft seat upholsterer ckles.HEART: Rate rhythm regular. No murmur appreciated on exam. Right carotidbruit.ABDOMEN: Bowel sounds positive times four. Soft, non tender. No reboundtenderness. No hepatosplenomegaly. Negative CVAT.GENITAL/RECTAL: Deferred.MUSCLE/SKELETAL: Strength is 5/5. Dental [employer] are equal. Limited range of motion ofleft shoulder.NEUROLOGICALLY: Cranial nerves II through XII are grossly intact.VASCULAR: Pulses are symmetrical. Trace edema.Anesthesia complications: DeniesSteroid use: He denies any oral steroid therapy for three weeks or greaterwithin the last 3 months.[facility] Frailty Scale :: 5/10 Mildly Frail (more evident slowing and need help inhigh order IADLs (finances, transportation, heavy housework, medications).Typically, mild frailty progressively impairs shopping and walking outsidealone, meal preparation and housework).Stop Bang Questionnaire - Total Score:STOP-Bang Total Score: 5IMPRESSION and PLAN:Primary Diagnosis: Rheumatic mitral regurgitation Surgery as per .Secondary Diagnosis and Plan:1. CAD EKG obtained in Pre-Admission testing or external EKG within 6 months,Continuation of cardiac medications post-operatively based on clinical status2. COPD Monitor oxygen saturation Albuterol nebulizer as needed Continue homemedications when clinically appropriate3. GI prophylaxis Per surgeon4. DVT prophylaxis Early ambulation. Pneumatic compression device.Subcutaneous Heparin or LMW Heparin if clinically indicated5. Tobacco dependence Cigarettes Smoking cessation information givento patient including [facility] quit line. Nicotine replacement products ifindicated by the attending6. Complex regional pain syndromeBased on above medical co morbidities, length of stay may be prolonged greaterthan previously anticipated.ALLERGIES:Codeine04/14/2021 11:55 Redd Mckeon NP*This document or parts of this document, were dictated using Osmopure software. A reasonable attempt at proofreading has beenmade to minimize errors. Please call with any questions or corrections. Name Value Range Interpretation Code Description Data Romi rce(s) Supporting Document(s) ID Date Data Source [id number] 04/14/2021 10:27:00 AM EDT [facility]OUND CAROTID DUPLEXCLINICAL HISTORY: Pretesting. Repair or replacement, mitral valve, minimally invasive, right thoracotomy approach, rheumatic mitral regurgitation.COMPARISON: None available.FINDINGS: RIGHT:CCA PS: 101 cm/secICA PS: 150 cm/secICA ED: 56 cm/secECA PS: 171 cm/secVertebral: 76 cm/sec, antegradeRatio: ICA/CCA: 1.49ICA Stenosis: Less than 50%.Comments: Mild plaque at the carotid bulb.LEFT:CCA PS: 114 cm/secICA PS: 116 cm/secICA ED: 50 cm/secECA PS: 187 cm/secVertebral: 44 cm/sec, antegradeRatio: ICA/CCA: 1.4ICA Stenosis: Less t carlson 50%.Comments: Mild plaque at the carotid bulb.IMPRESSION: Less than 50% ICA stenosis bilaterally.Dictated by: MERCEDES PEÑA on 04/14/2021lectronically Signed by: MERCEDES PEÑA on 04/14/2021 03:16 PMTranscribed by: DIMITRY on 04/14/2021 02:05 PMCDS G code: ,CDS Modifier: ,cc: Name Value Range Interpretation Code Description Data Romi rce(s) Supporting Document(s) ID Date Data Source [id number] 04/14/2021 10:20:00 AM EDT [facility] C HEST WO IV CONTRASTCLINICAL HISTORY: Pretesting. Repair or replacement, mitral valve, minimally inasive, right thoracotomy approach, rheumatic mitral regurgitation.COMPARISON: None available.TECHNIQUE: Helical acquisition performed through the chest without intravenous contrast.FINDINGS: Lungs: Mild emphysema. Otherwise clear.Pleural space: No pleural effusion or pneumothorax.Mediastinum: Several mildly prominent mediastinal lymph nodes measuring up to 12 mm in short axis. No pericardial effusion.Bones: No acute abnormality.Soft tissues and upper abdomen: At least 3 small calculi in the right kidney which is not fully included in the iqxxr-rm-jkxi, the largest measuring 3 mm.IMPRESSION:1. Mild emphysema. No acute pulmonary abnormality.2. Several mildly prominent mediastinal lymph nodes measuring up to 12 mm in short axis, favored to be reactive. Consider follow-up CT in 3 months.3. At least 3 small calculi in the right kidney, not fully included in the zxgja-ou-mrog.Dictated by: MERCEDES PEÑA on 04/14/2021lectronically Signed by: MERCEDES PEÑA on 04/14/2021 01:56 PMTranscribed by: [email or web address] on 04/14/2021 01:56 PMCDS G code: ,CDS Modifier: ,cc: Name Value Range Interpretation Code Description Data Rmoi rce(s) Supporting Document(s) ID Date Data Source [id number] 04/14/2021 10:19:01 AM EDT [facility] Name Value Range Interpretation Code Description Data Romi rce(s) Supporting Document(s) EKG [facility] OJKYYi8yUtLJPgWjt2VlRmJjNWBrNN8vuhc5I6H0yTIbQ3QqkTVau1nhT3PaF4FrBJPsPXUBEM4PyCYs jb2 [file] qBuZLNVkqSZLNVmqydJMlmayNJOlmSzNZGkmSzNZms vWEVFugaWUzSng1WCqLya7DCd3Q1yi/7yYbTdz6mS+QdiUw5YmGFq4pQKmCNqAd2p49KZ9Fs0XSbDol2 F332G6DrMbUXTSsVGauaNTmdenpLzDYRqyifIJyklpV6TFdjGdbZRCqPXa4pFqaZt69eJ1RwCTn+plWb 4jf0in6pCbAqfLn+yayfp2y59n14ESRpi5Jqzs0jeo p0WJwDqLGxjPKKLL+U3I9au39B/SMMVjXCFkXBagHcjH5zUxfMlFnt0lsPylVkgcztW/vkMuV/OrPeRy aYinC01V1jUR0GrdvSvVxTMmYoivwN2J5CYy+6JfTpxq7nbA48Kd7bl+Xr0ZO0yQAhMktDe/jYNBAspg 3YSgSX4mSXgckqAQPjugBdlUdtmDPdkwTb4kjveOW2 3meb62wlnzDwzW6cxFpCrrvuzgamcYHG9sMMigo8xrxvqL8+dLl++Uq+ztR4Zrmd/xdOeRZahVUu/K9e 7DlWzO3K80q/SuelbwezSuq+t8i7n+K7otjw2UhAUFF9f4DPaPes0kC6zWra2kPhOa7Y5RZXgLf2V6AQ J1nTO/say/cZO6lHtRyQUZXV7aIaTPuo56rDYUPstj /8jjcw48LFnYvEhYAB4Fn8moK+wq8FK9NtSeLh4gOP/6L7lv4kFEdnBwjRdGXkpeTHXSkW5S77jX+J2O Ta2D627LLaEHLU66Lopsb0E3cr2oqU2hpvhq3u1yId2C4fxN9NR7Z4e0EfvUw9Om7veShe9zwxXJPHjh J9j9xhM5lOuJ4jXMrFl5zOXAEu3QvHnJW+f8KDq/сергей [file] 5PHl/DnyYd7E0Dx6fqP6MW5wO+AUeDkli1JK3iD+Сергей [file] biAKMDAwMDAwMDUyMyAwMDAwMCBuIAowMDAwMDAwNj EkZTFyATHvPJ7mRiIvEEUjWUJ6MPOyNWBhMYTkbkMKIGChAHAwRKp7TAVeHWOjIYYsIBodMSAiMSPpON M3CEIaUERbZS9hMrZiLWQfLUStWVLzAUAaREYbnbQOUCDoMHYoVMP9RXJqYIGfBLMoUEerFLAaWFAyKe r1HTVvDZPhIW1bCiEhJGOtVTB9GXRsSTDsQUKddpXT VCVrAPG7Fwh9AhTfOCKaFSQaIFxrVBUyNAKhOgT2TMJzISBcYT9rIqQkPIXlIBN5VrSrYXCyHBUhbgZG JPGaZMMtTSO8PgRlJIBbBJNmKQjtQNSwLQJgTHUtUMU4YLE8FEYcJqRcJWleEWVWUOzLC5BnepJfIkMA J9zxYd6rHoTrDNSNV4Kqs3BwLJNpXJKQYq6+AkI7WLI0fOHcKvr3RcOjZvwuVHFPDu== ID Date Data Source [id number] 04/15/2021 11:05:37 AM EDT [facility] SPECIMEN DESCRIPTION URINE, COLLE CTION METHOD NOT SPECIFIEDCULTURE RESULTS NO GROWTHREPORT STATUS FINAL 04/15/2021 Name Value Range Interpretation Code Description Data Romi rce(s) Supporting Document(s) ID Date Data Source [id number] 04/14/2021 12:33:31 PM EDT [facility] Name Value Range Interpretation Code Description Data Romi rce(s) Supporting Document(s) COLOR [facility] APPEARANCE [facility] SPEC GRAV URINE 1.020 (1.003-1.030) [facility] PH URINE 6.0 (5.0-7.5) [facility] LEUK ESTERASE (NEG) [facility] NITRITE URINE (NEG) [facility] PROTEIN URINE (NEG) [facility] GLUCOSE URINE (NEG) [facility] KETONE URINE (NEG) [facility] [place] STEPHEN UROBILINOGEN 0.2 mg/dL (0-1.0) [facility] BILIRUBIN URINE (NEG) [facility] BLOOD/HGB URINE (NEG) [facility] ID Date Data Source [id number] 04/14/2021 10:42:38 PM EDT [facility] Name Value Range Interpretation Code Description Data Romi rce(s) Supporting Document(s) ROOM TEMP AB SCREEN [facility] ROOM TEMP AB SCREEN NEGATIVE ID Date Data Source [id number] 04/14/2021 09:03:24 PM EDT [facility] SPEC EXP DATE 04/18/2021ATI ENT ABO/Rh O NEGATIVEANTIBODY SCREEN NEGATIVETESTING SITE PERFORMED AT [address] [place] [address] Name Value Range Interpretation Code Description Data Romi rce(s) Supporting Document(s) TYPE AND SCREEN [facility] ANTIBODY SCREEN NEGATIVE ID Date Data Source [id number] 04/14/2021 12:52:19 PM EDT [facility] Name Value Range Interpretation Code Description Data Romi rce(s) Supporting Document(s) HEMOGLOBIN A1C @ 5.3 % (4.0-6.0) [facility] GARCIA Performed using Siemens [place] immunoassa y.Care must be taken when interpreting QmJ7etwqgtta in patients with a hemoglobin variantor decreased erythrocyte lifespan. Values 5.7 - 6.4% suggest prediabetes.Values >=6.5% are diagnostic for diabetes.REFERENCE: DIABETES CARE 2018: 41(S13-S27). EST AVERAGE GLUCOSE 105 mg/dL [facility] ID Date Data Source [id number] 04/14/2021 12:48:58 PM EDT [facility] Name Value Range Interpretation Code Description Data Romi rce(s) Supporting Document(s) NT PRO BNP 1465 pg/mL (0-125) H [facility] ID Date Data Source [id number] 04/14/2021 12:48:58 PM EDT [facility] Name Value Range Interpretation Code Description Data Romi rce(s) Supporting Document(s) SODIUM 139 mmol/L (136-145) [facility] POTASSIUM 4.7 mmol/L (3.6-5.2) [facility] CHLORIDE 112 mmol/L (100-108) H [facility] CO2 19 mmol/L (22-31) L [facility] ANION GAP 8 mmol/L (7-16) [facility] UREA NITROGEN 22 mg/dL (7-24) [facility] CREATININE 1.37 mg/dL (0.80-1.30) H [facility] BUN/CREAT RATIO 16.1 RATIO (10.0-20.0) [facility] GLUCOSE 78 mg/dL (70-99) [facility] CALCIUM 8.2 mg/dL (8.4-10.2) L [facility] TOTAL PROTEIN 6.9 g/dL (6.4-8.2) [facility] ALBUMIN 3.7 g/dL (3.5-4.6) [facility] GLOBULIN 3.2 g/dL (2.7-4.3) [facility] ALB/GLOB RATIO 1.2 RATIO [facility] ALKALINE PHOSPHATASE 118 U/L (45-117) H [facility] BILIRUBIN,TOTAL 0.4 mg/dL (0.0-1.0) [facility] PLEASE NOTE:Total bilirubin results may be falselyelevated in patients taking Eltrombopag. AST (SGOT) 18 U/L (11-39) [facility] ALT (SGPT) 19 U/L (12-78) [facility] GFR 55 ml/min/1.73m2 (>59) L [facility] GFR ( AMER) >60 ml/min/1.73m2 (>59) [facility] GFR INTERPRETATION [facility] --NORMAL KIDNEY FUNCTION OR MILD DISEASE - GFR >OR= 60CHRONIC KIDNEY DISEASE - GFR 15 - 59RENAL FAILURE - GFR <15 Est. GFR calculation based on the MDRDstudy equation, which assumes a steadystate for creatinine. Est. GFR should notbe used for medication dosing. ID Date Data Source [id number] 04/14/2021 12:39:14 PM EDT [facility] Name Value Range Interpretation Code Description Data Romi rce(s) Supporting Document(s) APTT 31.3 s (22.0-34.3) [facility] ID Date Data Source [id number] 04/14/2021 12:39:14 PM EDT [facility] Name Value Range Interpretation Code Description Data Romi rce(s) Supporting Document(s) PT 11.3 s (9.2-11.9) [facility] INR 1.09 [facility] SUGGESTED THERAPEUTIC RANGES USING INR F ORSTABILIZED ANTICOAGULATED PATIENTS:STANDARD DOSE THERAPY INR 2.0-3.0 DVT, PE, PREVENT DVT OR EMBOLISMHIGH DOSE THERAPY INR 2.5-3.5 PREVENT EMBOLISM FROM MECHANICAL HEART VALVE ID Date Data Source [id number] 04/14/2021 12:23:49 PM EDT [facility] Name Value Range Interpretation Code Description Data Romi rce(s) Supporting Document(s) WBC 7.5 10*3/uL (4.1-11.0) [facility] [place] RBC 3.62 10*6/uL (4.60-6.10) L [facility] HGB 11.0 g/dL (13.5-18.0) L [facility] HCT 33.4 % (41.0-53.0) L [facility] MCV 92.2 fL (80.0-95.0) [facility] MCH 30.5 pg (27.0-32.0) [facility] MCHC 33.1 g/dL (32.0-36.0) [facility] RDW 16.3 % (10.5-14.5) H [facility] PLT 200 10*3/uL (150-450) [facility] MPV 8.8 fL (7.1-10.7) [facility] NEUT % 63.1 % (35.0-75.0) [facility] LYMPH % 29.0 % (16.0-52.0) [facility] MONO % 5.8 % (0.0-8.0) [facility] EOS % 1.4 % (0.0-5.0) [facility] BASO % 0.7 % (0.0-4.0) [facility] NEUT # 4.7 10*3/uL (1.8-7.7) [facility] LYMPH # 2.2 10*3/uL (1.2-4.8) [facility] MONO # 0.4 10*3/uL (0.0-0.8) [facility] Eosinophils [#/volume] in Blood by Automated count 0.1 10*3/uL (0.0-0 .5) [facility] BASO # 0.1 10*3/uL (0.0-0.2) [facility] ID Date Data Source [id number] 04/14/2021 09:42:49 AM EDT [facility] Name Value Range Interpretation Code Description Data Romi rce(s) Supporting Document(s) POC SOURCE [facility] PUNCTURE SITE [facility] O2 THERAPY [facility] KB TEST [facility] POC PH 7.27 pH (7.35-7.45) L [facility] POC PCO2 32.7 MMHG (32.0-48.0) [facility] POC PO2 89 MMHG (83-108) [facility] POC SAT O2 96 % (95-99) [facility] POC BASE DEFICIT 11 MMOL/L (0-2) H [facility] POC HCO3 15.1 MMOL/L (21.0-29.0) L [facility] POC TOTAL CO2 16 MMOL/L (23.0-32.0) L [facility] PERFORMED BY [facility]ICAL STAFF ID Date Data Source [id number] 04/15/2021 10:33:27 AM EDT [facility] Name Value Range Interpretation Code Description Data Romi rce(s) Supporting Document(s) SPECIMEN DESCRIPTION [facility] STAPH SCREEN RESULTS (ONEGSA) A [facility] COMMENT [facility] GENE TO DETECT STAPH AUREUS. (2) RT-P CR WAS PERFORMED FOR THE mecA AND SCCm[employer] GENES TO DETECT METHICILLIN RESISTANCE IN STAPH AUREUS. ID Date Data Source [id number] 04/14/2021 08:25:00 AM EDT [facility] Name Value Range Interpretation Code Description Data Romi rce(s) Supporting Document(s) SARS coronavirus 2 RNA [Presence] in Res piratory specimen by LEON with probe detection NOT DETECTED [facility] This lab was reported by [facility]. ID Date Data Source [id number] 04/15/2021 07:17:38 AM EDT [facility] Name Value Range Interpretation Code Description Data Romi rce(s) Supporting Document(s) SPECIMEN DESCRIPTION [facility] COVID 19 RESULT (NDET) [facility] NEGATIVE COVID-19 RESULTS DONOT PRECLUDE COVID-2019 INFECTION ANDSHOULD NOT BE USED THE SOLE BASISFOR PATIENT MANAGEMENT DECISIONS. COMMENT [facility] THE [place] FDA HAS MADE THIS TEST AVAILABL EUNDER AN EMERGENCY USE AUTHORIZATION(EUA) FOR THE DETECTION AND/OR DIAGNOSISOF THE VIRUS THAT CAUSES COVID-19.THIS ASSAY AMPLIFIES AND DETECTS TARGETDNA USING RHIA- MEDIATEDAMPLIFICATIONTESTING PERFORMED ON Fl[employer] FIRST TEST [facility] EMPLOYED IN HLTHCARE [facility] SYMPTOMATIC [facility] DATE OF SYMPT ONSET [facility] ICU [facility] CONGREGATE CARE SET [facility] ID Date Data Source [id number] 04/09/2021 06:14:43 PM EDT [facility] INFORMATIONPatient MRN Name Date of Age Gend*PT [id number] Adrian Andrews 1970 50 years M ---PT Location Admission Date/Time Visit ID Attending Provider --- --- --- --- EPI ID CSN Admitting Provider [id number] ---ConsultAssessment/Plan:50-year-old pleasant gentleman referred with 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 He is clearly symptomatic in terms of shortness of breath with lessthan ordinary activity. He does have mild COPD as well. He does have preservedleft ventricular function with moderate pulmonary hypertension. Cardiaccatheterization shows no coronary artery disease. I have reviewed his echo andfeel that his mitral valve will most likely need to be re placed it certainlydoes look like he probably has rheumatic pathology. There are no history ofatrial arrhythmias. He is a good candidate for minimally invasive approachwhich he strongly prefers. He does prefer a bioprosthetic valve for avoidanceof long-term Coumadin. He does understand that he will likely need areoperation in his lifetime and at this can probably be performed via atranscatheter approach. He overall understands the risk benefits andalternatives of surgery which is essentially medical therapy and wishes toproceed with surgery in the next few weeks.Subjective: Patient ID: Adrian Andrews is a 50 years maleData Review: Echo and cathNo flowsheet data found.Reason for Consultation: Moderate to severe mitral stenosis and regurgitationHPI 50-year-old pleasant gentleman referred with most likely rheumatic heartdisease with combined stenosis and insufficiency that is in the moderate tosevere category. He is clearly symptomatic in terms of shortness of breath withless than ordinary activity. He does have mild COPD as well. He does havepreserved left ventricular function with moderate pulmonary hypertension.Cardiac catheterization shows no coronary artery disease. He is a patient of [facility]. There is no history of atrial arrhythmias. He is being referred forconsideration of mitral valve surgery.The following portions of the patient's history were reviewed and updated asappropriate: allergies, current medications were reconciled with dischargemedications if applicable, past family history, past medical history, pastsocial history, past surgical history, problem list and nutrition. Encouragedregular exercise and healthy diet. BMI management plan discussed..Past Medical History:Diagnosis Date Complex regional pain syndrome i of left lower limb COPD (chronic obstructive pulmonary disease) Hyperlipidemia NephrolithiasisPast Surgical History:Procedure Laterality Date CARDIAC CATHETERIZATION Right 12/10/2020 Procedure: Right heart cath; Surgeo n: Susan House MD; Laterality: Right;urgent cath CARDIAC CATHETERIZATION Left 12/10/2020 Procedure: Left heart cath; Surgeon: Susan House MD; Laterality: Left; FEMUR FRACTURE SURGERY Bilateral as a child INGUINAL HERNIA REPAIR Left LITHOTRIPSY multiple times SPINAL CORD STIMULATOR IMPLANT 2011 Kevin Alexis StatusRelation Name Status Mother Alive Father DeceasedSocial HistorySocioeconomic History Marital status: Spouse name: None Number of children: 2 Years of education: None Highest education level: NoneOccupational History 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: 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 Use Smoking status: Current Every Day Smoker Packs/day: 1.00 Years: 26.00 Pack years: 26.00 Types: Cigarettes Smokeless tobacco: Never UsedSubstance and Sexual Activity Alcohol use: Not Currently Drug use: Never Sexual activity: NoneOther Topics Concern Bike Helmet Not Asked History of Falls Not Asked Self-Exams Not Asked Caffeine Concern Not Asked Hobby Hazards Not Asked Sleep Concern Not Asked Daily Calcium Supplement Not Asked Lead Exposure Not Asked Special Diet Not Asked Daily Vitamin D Supplement Not Asked Service Not Asked Stress Concern Not Asked Domestic Violence in home Not Asked Radon exposure Not Asked Weight Concern Not Asked Exercise Not Asked Seat Belt Not Asked Well water Not Asked Firearms in home Not AskedSocial History Narrative NoneSocial Determinants of HealthFinancial Resource Strain: Difficulty of Paying Living Expenses:Food Insecurity: Worried About Running Out of Food in the Last Year: Ran Out of Food in the Last Year:Transportation Needs: Lack of Transportation (Medical): Lack of Transportation (Non-Medical):Physical Activity: Days of Exercise per Week: Minutes of Exercise per Session:Stress: Feeling of Stress :Social Connections: Frequency of Communication with Friends and Family: Frequency of Social Gatherings with Friends and Family: Attends Restorationism Services: Active Member of Clubs or Organizations: Attends Club or Organization Meetings: Marital Status:Intimate Partner Violence: Fear of Current or Ex-Partner: Emotionally Abused: Physically Abused: Sexually Abused:Current Outpatient MedicationsMedication Sig Dispense Refill albuterol (PROVENTIL HFA;VENTOLIN HFA) 108 (90 Base) MCG/ACT inhaler as needed amitriptyline (ELAVIL) 100 MG tablet Take 100 mg by mouth daily aspirin EC 81 MG EC tablet Take 1 tablet (81 mg total) by mouth daily atorvastatin (LIPITOR) 80 MG tablet Take 1 tablet by mouth daily Buprenorphine 20 MCG/HR PTWK APPLY ONE PATCH WEEKLY MAXIMUM DAILY DOSE 1PATCH PER WEEK buprenorphine HCl-naloxone HCl (SUBOXONE) 8-2 MG SUBL 4 (four) times a dayManaged by Dr. Chandler Basilio ezetimibe (ZETIA) 10 MG tablet Take 1 tablet (10 mg total) by mouth daily 90tablet 3 FLOVENT DISKUS 100 MCG/BLIST AEPB INHALE ONE PUFF BY MOUTH TWICE A DAY gabapentin (NEURONTIN) 800 MG tablet 800 mg 3 (three) times a day ibuprofen (ADVIL,MOTRIN) 200 MG tablet Take 200 mg by mouth every 8 (eight)hours as needed SPIRIVA RESPIMAT 2.5 MCG/ACT AERS INHALE TWO PUFFS BY MOUTH EVERY DAY SUMAtriptan (IMITREX) 100 MG tablet as neededNo current facility- administered medications for this visit.AllergiesAllergen Reactions Codeine RashReview of SystemsConstitutional: Positive for activity change and fatigue.HENT: Negative.Eyes: Negative.Respiratory: Positive for apnea and shortness of breath.Cardiovascular: Positive for chest pain.Gastrointestinal: Negative.Endocrine: Negative.Genitourinary: Positive for frequency.Musculoskeletal: Negative.Skin: Negative.Allergic/Immunologic: Negative.Neurological: Negative.Hematological: Negative.Psychiatric/Behavioral: Negative.Objective:Vitals: BP 104/68 (BP Location: Left upper arm, Patient Position: Sitting) |Pulse 67 | Resp 16 | SpO2 99% Comment: room airPhysical ExamVitals and nursing note reviewed.Constitutional: Appearance: Normal appearance.HENT: Head: Normocephalic and atraumatic. Mouth/Throat: Mouth: Mucous membranes are moist.Eyes: Extraocular Movements: Extraocular movements intact. Pupils: Pupils are equal, round, and reactive to light.Cardiovascular: Rate and Rhythm: Normal rate. Heart sounds: Murmur heard.Pulmonary: Effort: Pulmonary effort is normal. Breath sounds: Normal breath sounds.Abdominal: General: Bowel sounds are normal. Palpations: Abdomen is soft.Musculoskeletal: General: Normal range of motion. Cervical back: Normal range of motion. Right lower leg: No edema. Left lower leg: No edema.Skin: General: Skin is warm and dry.Neurological: General: No focal deficit present. Mental Status: He is alert and oriented to person, place, and time.Psychiatric: Mood and Affect: Mood normal. Behavior: Behavior normal. Thought Content: Thought content normal. Judgment: Judgment normal. Name Value Range Interpretation Code Description Data Romi rce(s) Supporting Document(s) ID Date Data Source [id number] 02/12/2021 02:29:00 PM EDT [facility] FASTING: UNKNOWNReceived: 02/08/2021 at 08:04:00 QPT: [facility], [address], [address] [place], [address], Jose Valentine MD Received: 02/08/2021 at 08:04:00 AMD : [employer], [address], [place], [address], Danielito Baum M.D.,PhD Name Value Range Interpretation Code Description Data Romi rce(s) Supporting Document(s) Glucose [Mass/volume] in Serum or Plasma 85 mg/dL 65-99 Normal (applies to non- numeric results) [facility] Fasting reference interval Urea nitrogen [Mass/volume] in Serum or Plasma 11 mg/dL 7 -25 Normal (applies to non-numeric results) [facility] Creatinine [Mass/volume] in Serum or Plasma 1.14 mg/dL 0.70 -1.33 Normal (applies to non-numeric results) [facility] For patients >49 years of age, the refer ence limitfor Creatinine is approximately 13% higher for peopleidentified as -[place]. eGFR NON-AFR. [place] CITIZ[place] 74 mL/min/1.73m2 > OR = 60 Normal ( applies to non-numeric results) [facility] eGFR 85 mL/min/1.73m2 > OR = 60 Normal (a pplies to non-numeric results) [facility] Urea nitrogen/Creatinine [Mass Ratio] in Serum or Plasma NOT APPLICABLE (calc) 6-22 [facility] Sodium [Moles/volume] in Serum or Plasma 138 mmol/L 135-146 Normal (applies to non-numeric results) [facility] Potassium [Moles/volume] in Serum or Plasma 4.3 mmol/L 3.5- 5.3 Normal (applies to non-numeric results) [facility] Chloride [Moles/volume] in Serum or Plasma 108 mmol/L 98-11 0 Normal (applies to non-numeric results) [facility] Carbon dioxide, total [Moles/volume] in Serum or Plasma 22 mmol/ L 20-32 Normal (applies to non-numeric results) [facility] Calcium [Mass/volume] in Serum or Plasma 9.4 mg/dL 8.6-10. 3 Normal (applies to non-numeric results) [facility] ID Date Data Source [id number] 02/12/2021 02:29:00 PM EDT [facility] FASTING: UNKNOWNReceived: 02/08/2021 at 08:04:00 QPT: [facility], [address], [address] [place], [address], Jose Valentine MD Received: 02/08/2021 at 08:04:00 AMD : [employer], [address], [place], [address], Danielito Baum M.D.,PhD Name Value Range Interpretation Code Description Data Romi rce(s) Supporting Document(s) Natriuretic peptide.B prohormone N-Terminal [Mass/volu me] in Serum or Plasma 578 pg/mL Above high normal [facility] For Heart Failure (HF) diagnosis, refere nce ranges inpatients with dyspnea are based on Shana JL, Et al.Am Inocente Cardiol. 2018;71:2699-7577.18-49 years:<= 300 pg/mL Normal, HF unlikely>= 450 pg/mL High probability of HF50-75 years:<= 300 pg/mL Normal, HF unlikely>= 900 pg/mL High probability of HF>75 years:<= 300 pg/mL Normal, HF unlikely>= 1800 pg/mL High probability of HFFor patients with coronary heart disease, the optimalrisk category cut points for incident HF or CVD (<253 pg/mL men, <372 pg/mL women) are based onJayashreeland T, et al. J Am Inocente Cardiol. 2007:50:205-14.For patients with existing HF, the optimal riskcategory cut point for HF progression (<300 pg/mL) isbased on Nick KB, et al. Clin Biochem. 2010;43:1405-10.For additional information, please refer tohttp://education.YouView/faq/GCM455(This link is being provided for informational/educational purposes only.) Your request to have a duplicate copy faxed has been acknowledged. Queued to: [id number] COLLECTION DATE RECEIVED. WE HAVE USEDTHE DATE THE SPECIMEN WAS RECEIVED BY [facility] THE COLLECTION DATE. IF THISIS INCORRECT, PLEASE CONTACT CLIENT SERVICES.PHONE NUMBER: [phone] ID Date Data Source [id number] 01/24/2021 12:50:00 PM EDT [facility] Name Value Range Interpretation Code Description Data Romi rce(s) Supporting Document(s) SARS-CoV-2 (COVID-19) RNA [Presence] in Respiratory specimen by LEON with probe detection Not Detected [facility] This lab was ordered by [facility] and reported by [facility]. ID Date Data Source [id number] 12/10/2020 01:26:06 PM EDT [facility] Name Value Range Interpretation Code Description Data Romi rce(s) Supporting Document(s) &PDF [facility] BWWQBs7yDlXUToZh27/CKRtmJNUcr3VzRSkmKNe4CIsxDRWrW2HimFkpJVREPvAzV0NODXXvMOOkTSJq waW JrH7fizTRuqnMZv7Jvh8VpvDwyexsELlGsJa4PZfXkAZ0kip0FBXTjKV6lyy8ZJAR0JI6XfUd1YSSbO3 StWCMzGYBpr3WxDU6KKQ3ulAltLmJ5JZ2+BVcpHQX8orOooX8BPELdEPqdFeo1syH+C9Z01QHUZw7Zcy CLHmkqXNXzJIUZXGJnJOKRAQUWHRU9esVM/aRkx4Sa [file] [id number]QcHjNnWW8JZt5IPuI5HXK6lDFpYl0XOfC5DyGKDkGvJN9BWYe= ID Date Data Source [id number] 12/10/2020 01:27:46 PM EDT [facility]FORMATIONPatient MRN Name Date of Age Gend*PT [id number] Adrian Andrews 1970 50 years M HOPPT Location Admission Date/Time Visit ID Attending Provider12/10/20 0918 --- Susan House MD([id number]) EPI ID CSN Admitting Provider [id number] Susan House MD([id number])Pre-Procedure History and Physical:H&P reviewed. The patient was examined and there are no changes to the H&P.Risks/benefits and alternatives explained to patient/ and or family who iswilling to proceed.Specific risks explained include but are not limited to: contrast reaction,contrast induced nephropathy, vascular problems including stroke, CA and evendeath.Signature: Susan House II, MDInterventional CardiologyDate: December 10, 2020Time: 1:26 PM Name Value Range Interpretation Code Description Data Romi rce(s) Supporting Document(s) ID Date Data Source [id number] 12/10/2020 09:50:00 AM [facility]T [facility] Name Value Range Interpretation Code Description Data Romi rce(s) Supporting Document(s) SARS coronavirus 2 RNA [Presence] in Res piratory specimen by LEON with probe detection NOT DETECTED [facility] This lab was reported by [facility]. ID Date Data Source [id number] 12/10/2020 11:03:31 AM EDT [facility] Name Value Range Interpretation Code Description Data Romi rce(s) Supporting Document(s) SPECIMEN DESCRIPTION [facility] INFLUENZA A (NEG) [facility] INFLUENZA B (NEG) [facility] RSV (NEG) [facility] COMMENT [facility] THE U.[place] FDA HAS MADE THIS TEST AVAILABL EUNDER AN EMERGENCY USE AUTHORIZATION(EUA) FOR THE DETECTION AND/OR DIAGNOSISOF THE VIRUS THAT CAUSES COVID-19.PERFORMED AT [address] [place] [id number] COVID19 RESULT (NDET) [facility] THIS ASSAY AMPLIFIES AND DETECTSTHE TARG ET RNA USING REAL-TIME PCR.TESTING PERFORMED ON Patterns GENEXPERTNEGATIVE 2019_NCOV RT-PCR RESULTS DONOT PRECLUDE 2019_NCOV INFECTION ANDSHOULD NOT BE USED THE SOLE BASISFOR PATIENT MANAGEMENT DECISIONS. FIRST TEST [facility] EMPLOYED IN HLTHCARE [facility] SYMPTOMATIC [facility] [place] DATE OF SYMPT ONSET [facility] HOSPITALIZED [facility] [place] [facility] CONGREGATE CARE SET [facility] ID Date Data Source [id number] 12/10/2020 11:11:37 AM EDT [facility] Name Value Range Interpretation Code Description Data Romi rce(s) Supporting Document(s) SODIUM 140 mmol/L (136-145) [facility] POTASSIUM 4.4 mmol/L (3.6-5.2) [facility] CHLORIDE 108 mmol/L (100-108) [facility] CO2 27 mmol/L (22-31) [facility] ANION GAP 5 mmol/L (7-16) L [facility] UREA NITROGEN 7 mg/dL (7-24) [facility] CREATININE 1.40 mg/dL (0.80-1.30) H [facility] BUN/CREAT RATIO 5.0 RATIO (10.0-20.0) L [facility] GLUCOSE 79 mg/dL (70-99) [facility] CALCIUM 8.9 mg/dL (8.4-10.2) [facility] GFR 53 ml/min/1.73m2 (>59) L [facility] GFR ( AMER) >60 ml/min/1.73m2 (>59) [facility] GFR INTERPRETATION [facility] --NORMAL KIDNEY FUNCTION OR MILD DISEASE - GFR >OR= 60CHRONIC KIDNEY DISEASE - GFR 15 - 59RENAL FAILURE - GFR <15 Est. GFR calculation based on the MDRDstudy equation, which assumes a steadystate for creatinine. Est. GFR should notbe used for medication dosing. ID Date Data Source [id number] 12/10/2020 10:59:23 AM EDT [facility] Name Value Range Interpretation Code Description Data Romi rce(s) Supporting Document(s) WBC 5.2 10*3/uL (4.1-11.0) [facility] [place] RBC 3.93 10*6/uL (4.60-6.10) L [facility] HGB 12.3 g/dL (13.5-18.0) L [facility] [place] HCT 35.5 % (41.0-53.0) L [facility] [place] PERFORMED AT [address] [place] [address] [address] [place] [address] MCV 90.3 fL (80.0-95.0) [facility] MCH 31.2 pg (27.0-32.0) [facility] MCHC 34.5 g/dL (32.0-36.0) [facility] RDW 15.2 % (10.5-14.5) H [facility] [place] PLT 205 10*3/uL (150-450) [facility] MPV 8.0 fL (7.1-10.7) [facility] ID Date Data Source LIPID PANEL (CARDIAC RISK) 11/05/2020 12:00:00 AM EST eCW1 ( Formerly [facility], 1928[facility]1983) Name Value Range Interpretation Code Description Data Romi rce(s) Supporting Document(s) Cholesterol [Moles/volume] in Serum or Plasma 220 <200 CHOLESTEROL LEVEL eCW1 ([facility]ly [facility], [facility]–1983) Triglyceride [Mass/volume] in Serum or Plasma by calculation 98 <150 TRIGLYCERIDES LEVEL [facility] ([facility]ly [facility], [facility]) 4.313 <5 CHOLESTEROL RISK RATIO [facility] ([facility]) Cholesterol in HDL [Moles/volume] in Serum or Plasma 51 >40 HDL CHOLESTEROL eCW1 ([facility], [facility]1983) 169 NON-HDL-C eCW1 ([facility]) Cholesterol in LDL [Mass/volume] in Serum or Plasma by calculation 149 <100 LDL CHOLESTEROL eCW1 ([facility]ly [facility], [facility]) ID Date Data Source FREE T4 & TSH PANEL 11/05/2020 12:00:00 AM EST eCW1 (Counts include 234 beds at the [facility]) Name Value Range Interpretation Code Description Data Romi rce(s) Supporting Document(s) 0.725 0.358-3.740 THYROID STIMULATING HORM ONE eCW1 ([facility], [facility]1983) 0.95 0.76-1.46 FREE T4 eCW1 ([facility]) ID Date Data Source Comprehensive Metabolic Profile (CMP) 11/05/2020 12:00:00 AM EST eCW1 ([facility], [facility]) Name Value Range Interpretation Code Description Data Romi rce(s) Supporting Document(s) 73 70-100 GLUCOSE, FASTING eCW1 (Counts include 234 beds at the [facility]) 7 7-18 BLOOD UREA NITROGEN eCW1 ([facility]) 1.28 0.70-1.30 CREATININE FOR GFR eCW1 ([facility]) 107 98-107 CHLORIDE LEVEL eCW1 ([facility], [facility]–1983) > 60.0 >56 GLOMERULAR FILTRATION RATE eCW 1 ([facility], [facility]–1983) 138 136-145 SODIUM LEVEL eCW1 ([facility]ly [facility]) 5.4 3.5-5.1 POTASSIUM SERUM eCW1 ([facility]) 14 7-37 AST/SGOT eCW1 ([facility]) 135 45-117 ALKALINE PHOSPHATASE eCW1 ([facility]) 9.3 8.5-10.1 CALCIUM LEVEL eCW1 ([facility], [facility]) 26 21-32 CARBON DIOXIDE LEVEL eCW1 ([facility]) 19 12-78 ALT/SGPT eCW1 ([facility]) 7.3 6.4-8.2 TOTAL PROTEIN eCW1 ([facility], [facility]1983) 3.7 3.2-5.2 ALBUMIN eCW1 ([facility]) 1.0 ALBUMIN/GLOBULIN RATIO eCW1 ([facility]) 0.5 0.2-1.0 BILIRUBIN,TOTAL eCW1 ([facility]) ID Date Data Source CBC - Complete Blood Count 11/05/2020 12:00:00 AM EST eCW1 ( [facility], [facility]) Name Value Range Interpretation Code Description Data Romi rce(s) Supporting Document(s) 4.30 4.30-6.10 eCW1 ([facility]) 42.0 42.0-52.0 eCW1 ([facility]) 5.6 4.0-10.0 eCW1 ([facility]) 12.7 13.5-17.5 eCW1 ([facility]) 29.5 27.0-33.0 eCW1 ([facility]) 97.7 80.0-96.0 eCW1 ([facility]) 30.2 32.0-36.5 eCW1 ([facility]) 14.6 11.5-14.5 eCW1 ([facility]) 221 150-450 eCW1 ([facility]) Procedure Social History Code Duration Value Status Description Data Source(s ) Smoking 06/26/2021 12:00:00 AM EDT Current Smoker completed Curre nt Smoker eCW1 ([facility]ly [facility], [facility]) Smoking 06/26/2021 12:00:00 AM EDT Current Smoker completed Curre nt Smoker eCW1 ([facility]ly [facility], [facility]) Smoking 06/25/2021 12:00:00 AM EDT Current Smoker completed Curre nt Smoker eCW1 ([facility]ly [facility], [facility]1983) Alcohol intake 04/26/2021 12:00:00 AM EDT Ex-drinker (finding) comp leted Ex- drinker (finding) [facility] Alcohol intake 04/23/2021 12:00:00 AM EDT Ex-drinker (finding) comp leted Ex- drinker (finding) [facility] Alcohol intake 04/14/2021 12:00:00 AM EDT Ex-drinker (finding) comp leted Ex- drinker (finding) [facility] Alcohol intake 04/07/2021 12:00:00 AM EDT Ex-drinker (finding) comp leted Ex- drinker (finding) [facility] Tobacco use and exposure 02/06/2021 12:00:00 AM EDT Never used co mpleted Never used [facility] Cigarette pack-years 02/06/2021 12:00:00 AM EDT UNK completed [facility] Cigarettes smoked current (pack per day) - Reported 02/07/20 12:00:00 AM EDT UNK completed [facility] Smoking 02/06/2021 12:00:00 AM EDT Current every day smoker co mpleted Current every day smoker [facility] Alcohol intake 02/06/2021 12:00:00 AM EDT Ex-drinker (finding) comp leted Ex- drinker (finding) [facility] Alcohol intake 01/06/2021 12:00:00 AM EDT Ex-drinker (finding) comp leted Ex- drinker (finding) [facility] Alcohol intake 12/10/2020 12:00:00 AM EDT Not Currently completed [facility] Cigarette pack-years 12/10/2020 12:00:00 AM EDT UNK completed [facility] Cigarettes smoked current (pack per day) - Reported 12/11/19 12:00:00 AM EDT UNK completed [facility] Smoking 12/10/2020 12:00:00 AM EDT Former smoker completed Former smoker [facility] Alcohol intake 12/09/2020 12:00:00 AM EDT Not Currently completed [facility] Cigarette pack-years 12/09/2020 12:00:00 AM EDT UNK completed [facility] Cigarettes smoked current (pack per day) - Reported 12/10/19 12:00:00 AM EDT UNK completed [facility] Smoking 12/09/2020 12:00:00 AM EDT Former smoker completed Former smoker [facility] Smoking 12/06/2020 12:00:00 AM EDT Current Smoker completed Curre nt Smoker eCW1 (Formerly [facility], 1928–1983) Smoking 12/06/2020 12:00:00 AM EDT Current Smoker completed Curre nt Smoker eCW1 (Formerly [facility], [facility]1983) Smoking 12/06/2020 12:00:00 AM EDT Current Smoker completed Curre nt Smoker eCW1 ([facility]ly [facility], [facility]1983) Smoking 12/06/2020 12:00:00 AM EDT Current Smoker completed Curre nt Smoker eCW1 ([facility]ly [facility], [facility]1983) Smoking 11/05/2020 12:00:00 AM EST Current Smoker completed Curre nt Smoker eCW1 ([facility]ly [facility], [facility]1983) Smoking 11/05/2020 12:00:00 AM EST Current Smoker completed Curre nt Smoker eCW1 ([facility]ly [facility], [facility]) Smoking 11/05/2020 12:00:00 AM EST Current Smoker completed Curre nt Smoker eCW1 ([facility]ly [facility], [facility]) Smoking 11/05/2020 12:00:00 AM EST Current Smoker completed Curre nt Smoker eCW1 ([facility]ly [facility], [facility]) 12/09/2020 12:00:00 AM EDT Cigarette Smoker completed Cig arette Smoker [facility] 12/09/2020 12:00:00 AM EDT Current smoker completed Curre nt smoker [facility] 12/09/2020 12:00:00 AM EDT Cigarette Smoker completed Cig arette Smoker [facility] [facility] 12/09/2020 12:00:00 AM EDT Current smoker completed Curre nt smoker [facility] Vital Signs ID Date Data Source UNK Name Value Range Interpretation Code Description Data Source(s) Body weight 138.0 [lb_av] 138.0 [lb_av] eCW1 ([facility]) Body height 69 [in_i] 69 [in_i] eCW1 (Counts include 234 beds at the [facility]) Body mass index (BMI) [Ratio] 20.38 kg/m2 20.38 kg/m2 eCW1 (Formerly [facility], 1928–1983) Heart rate 117 /min 117 /min eCW1 ([facility]) Respiratory rate 18 /min 18 /min eCW1 (Formerly [facility]) Body temperature 98.0 [degF] 98.0 [degF] eCW1 ( Formerly [facility], 1928–1983) Systolic blood pressure 114 mm[Hg] 114 mm[Hg] e CW1 (Formerly [facility], 1928–1983) Diastolic blood pressure 64 mm[Hg] 64 mm[Hg] eCW1 (Formerly [facility], 1928–1983) Body weight 141.4 [lb_av] 141.4 [lb_av] eCW1 ([facility]) Body height 69 [in_i] 69 [in_i] eCW1 (Counts include 234 beds at the [facility]) Diastolic blood pressure 60 mm[Hg] 60 mm[Hg] eCW1 (Formerly [facility], 1928–1983) Body mass index (BMI) [Ratio] 20.88 kg/m2 20.88 kg/m2 eCW1 (Formerly [facility], 1928–1983) Heart rate 130 /min 130 /min eCW1 ([facility]) Respiratory rate 18 /min 18 /min eCW1 (Formerly [facility]) Body temperature 98.7 [degF] 98.7 [degF] eCW1 ( Formerly [facility], 1928–1983) Systolic blood pressure 110 mm[Hg] 110 mm[Hg] e CW1 (Formerly [facility], 1928–1983) Systolic blood pressure 100 mm[Hg] 100 mm[Hg] [facility] Heart rate 72 /min 72 /min [facility] Respiratory rate 16 /min 16 /min [facility] Body height 172.7 cm 172.7 cm [facility] Body weight 60.328 kg 60.328 kg [facility] Body mass index (BMI) [Ratio] 20.22 kg/m2 20.22 kg/m2 [facility] Diastolic blood pressure 60 mm[Hg] 60 mm[Hg] [facility] Body temperature 36.94 Yisel 36.94 Yisel [facility] Respiratory rate 18 /min 18 /min [facility] Oxygen saturation in Arterial blood by Pulse oximetry 92 % 92 % [facility] Systolic blood pressure 101 mm[Hg] 101 mm[Hg] [facility] Diastolic blood pressure 71 mm[Hg] 71 mm[Hg] [facility] Heart rate 69 /min 69 /min [facility] Body weight 61.8 kg 61.8 kg [facility] Body mass index (BMI) [Ratio] 20.12 kg/m2 20.12 kg/m2 [facility] Body height 175.3 cm 175.3 cm [facility] Systolic blood pressure 113 mm[Hg] 113 mm[Hg] [facility] Diastolic blood pressure 64 mm[Hg] 64 mm[Hg] [facility] Heart rate 62 /min 62 /min [facility] Respiratory rate 18 /min 18 /min [facility] Oxygen saturation in Arterial blood by Pulse oximetry 97 % 97 % [facility] Systolic blood pressure 104 mm[Hg] 104 mm[Hg] [facility] Diastolic blood pressure 68 mm[Hg] 68 mm[Hg] [facility] Heart rate 67 /min 67 /min [facility] Respiratory rate 16 /min 16 /min [facility] Oxygen saturation in Arterial blood by Pulse oximetry 99 % 99 % [facility] room air Systolic blood pressure 136 mm[Hg] 136 mm[Hg] [facility] Diastolic blood pressure 90 mm[Hg] 90 mm[Hg] [facility] Heart rate 69 /min 69 /min [facility] Body height 175.3 cm 175.3 cm [facility] Body weight 64.864 kg 64.864 kg [facility] Body mass index (BMI) [Ratio] 21.12 kg/m2 21.12 kg/m2 [facility] Oxygen saturation in Arterial blood by Pulse oximetry 99 % 99 % [facility] Heart rate 86 /min 86 /min [facility] ([facility] [place] body weight 160 [lb_av] 160 [lb_av] MEDEN T ([facility]) Body weight 65.318 kg 65.318 kg [facility] ([facility]) Body surface area Derived from formula 1.80 m2 1.80 m2 [facility] ([facility]) Body height 69 [in_i] 69 [in_i] [facility] ([facility]) 5'9" Body weight 144.00 [lb_av] 144.00 [lb_av] MEDEN T ([facility]) Body mass index (BMI) [Ratio] 21.3 kg/m2 21.3 k g/m2 [facility] ([facility]) Diastolic blood pressure 70 mm[Hg] 70 mm[Hg] MEDENT ([facility]) Systolic blood pressure 106 mm[Hg] 106 mm[Hg] M EDENT ([facility]) Body height 175.3 cm 175.3 cm [facility] Systolic blood pressure 136 mm[Hg] 136 mm[Hg] [facility] Diastolic blood pressure 80 mm[Hg] 80 mm[Hg] [facility] Heart rate 75 /min 75 /min [facility] Body weight 67.586 kg 67.586 kg [facility] Body mass index (BMI) [Ratio] 22.00 kg/m2 22.00 kg/m2 [facility] Oxygen saturation in Arterial blood by Pulse oximetry 97 % 97 % [facility] Respiratory rate 16 /min 16 /min [facility] Oxygen saturation in Arterial blood by Pulse oximetry 99 % 99 % [facility] Systolic blood pressure 120 mm[Hg] 120 mm[Hg] [facility] Diastolic blood pressure 72 mm[Hg] 72 mm[Hg] [facility] Heart rate 74 /min 74 /min [facility] Body temperature 36.39 Yisel 36.39 Yisel [facility] Body height 175.3 cm 175.3 cm [facility] Body weight 65.318 kg 65.318 kg [facility] Body mass index (BMI) [Ratio] 21.27 kg/m2 21.27 kg/m2 [facility] Systolic blood pressure 152 mm[Hg] 152 mm[Hg] [facility] Diastolic blood pressure 100 mm[Hg] 100 mm[Hg] [facility] Heart rate 81 /min 81 /min [facility] Body height 175.3 cm 175.3 cm [facility] Body weight 65.499 kg 65.499 kg [facility] Body mass index (BMI) [Ratio] 21.32 kg/m2 21.32 kg/m2 [facility] Oxygen saturation in Arterial blood by Pulse oximetry 98 % 98 % [facility] Body weight 143 [lb_av] 143 [lb_av] [facility] ([facility]) Body height 69 [in_i] 69 [in_i] eCW1 (Counts include 234 beds at the [facility]) Body mass index (BMI) [Ratio] 21.12 kg/m2 21.12 kg/m2 [facility] (Formerly [facility], 1928–1983) Heart rate 90 /min 90 /min W1 ([facility]) Respiratory rate 18 /min 18 /min W1 (Formerly [facility]) Body temperature 97.1 [degF] 97.1 [degF] W1 ( Formerly [facility], 1928–1983) Systolic blood pressure 144 mm[Hg] 144 mm[Hg] e CW1 (Formerly [facility], 1928–1983) Diastolic blood pressure 84 mm[Hg] 84 mm[Hg] eCW1 (Formerly [facility], 1928–1983) Systolic blood pressure 142 mm[Hg] 142 mm[Hg] M EDENT ([facility]) Diastolic blood pressure 70 mm[Hg] 70 mm[Hg] MEDENT ([facility]) Body height 69 [in_i] 69 [in_i] [facility] ([facility]) 5'9" Body weight 143.25 [lb_av] 143.25 [lb_av] MEDEN T ([facility]) Body mass index (BMI) [Ratio] 21.2 kg/m2 21.2 k g/m2 [facility]) [place] body weight 160 [lb_av] 160 [lb_av] MEDEN T ([facility]) Body weight 64.978 kg 64.978 kg [facility] ([facility]) Body surface area Derived from formula 1.79 m2 1.79 m2 [facility] ([facility]) Systolic blood pressure 128 mm[Hg] 128 mm[Hg] e CW1 (Formerly [facility], 1928–1983) Diastolic blood pressure 76 mm[Hg] 76 mm[Hg] eCW1 (Formerly [facility], 1928–1983) Respiratory rate 18 /min 18 /min eCW1 (Formerly [facility]) Body weight 148 [lb_av] 148 [lb_av] eCW1 ([facility]) Heart rate 85 /min 85 /min eCW1 ([facility]) Body height 69 [in_i] 69 [in_i] eCW1 (Counts include 234 beds at the [facility]) Body mass index (BMI) [Ratio] 21.85 kg/m2 21.85 kg/m2 eCW1 (Formerly [facility], 1928–1983) Body temperature 97.6 [degF] 97.6 [degF] eCW1 ( Formerly [facility], 1928–1983) Patient Treatment Plan of Care Planned Activity Planned Date Details Description Data Source (s) Oxycodone Hydrochloride 15 MG Oral Tablet 06/26/2021 12:00:00 AM ED T eCW1 (Formerly [facility], 1928–1983) Acetaminophen 325 MG / Hydrocodone Bitartrate 10 MG Or al Tablet 06/26/2021 12:00:00 AM EDT eCW1 ([facility]) Oxycodone Hydrochloride 15 MG Oral Tablet 06/26/2021 12:00:00 AM ED T eCW1 (Formerly [facility], 1928–1983) Acetaminophen 325 MG / Hydrocodone Bitartrate 10 MG Or al Tablet 06/26/2021 12:00:00 AM EDT eCW1 ([facility]) Metoprolol Tartrate 25 MG Oral Tablet 06/19/2021 12:00:00 AM EDT eCW1 (Formerly [facility], 1928–1983) Folic Acid 1 MG Oral Tablet 04/24/2021 12:00:00 AM EDT [facility] Daily Hao (THERAGRAN) per tablet 04/24/2021 12:00:00 AM EDT [facility] Aspirin 81 MG Delayed Release Oral Tablet 04/24/2021 12:00:00 AM ED T [facility] Warfarin Sodium 1 MG Oral Tablet 04/23/2021 12:00:00 AM EDT [facility] Metoprolol Tartrate 25 MG Oral Tablet 04/23/2021 12:00:00 AM EDT [facility] ferrous gluconate 324 MG Oral Tablet 04/23/2021 12:00:00 AM EDT [facility] Acetaminophen 325 MG Oral Tablet 04/23/2021 12:00:00 AM EDT [facility] Docusate Sodium 100 MG Oral Capsule 04/22/2021 09:00:00 PM EDT [facility] POLYETHYLENE GLYCOL 3350 142 MG/ML Oral Solution 04/22/2021 07:00:0 0 PM EDT [facility] ondansetron (ZOFRAN) injection 4 mg 04/22/2021 06:22:27 PM EDT [facility] potassium chloride SA (K-DUR,KLOR-CON) CR tablet 40 mE q 04/22/2021 06:22:27 PM EDT [facility] potassium chloride SA (K-DUR,KLOR-CON) CR tablet 20 mE q 04/22/2021 06:22:27 PM EDT [facility] potassium chloride SA (K-DUR,KLOR-CON) CR tablet 20 mE q 04/22/2021 06:22:27 PM EDT [facility] potassium chloride SA (K-DUR,KLOR-CON) CR tablet 10 mE q 04/22/2021 06:22:27 PM EDT [facility] 10 ML Atropine Sulfate 0.1 MG/ML Prefilled Syringe 04/22/2021 06 :22:26 PM EDT [facility] Aluminum Hydroxide 64 MG/ML Oral Suspension 04/22/2021 06:22:26 PM EDT [facility] Bisacodyl 10 MG Rectal Suppository 04/22/2021 06:22:26 PM EDT [facility] Nitroglycerin 0.4 MG Sublingual Tablet 04/22/2021 06:22:26 PM EDT [facility] 50 ML Magnesium Sulfate 40 MG/ML Injection 04/22/2021 06:22:26 PM E DT [facility] 50 ML Magnesium Sulfate 40 MG/ML Injection 04/22/2021 06:22:26 PM E DT [facility] 50 ML Magnesium Sulfate 40 MG/ML Injection 04/22/2021 06:22:26 PM E DT [facility] magnesium sulfate 1 g in dextrose 5% infusion (premix) 04/22/2021 06:22:26 PM EDT [facility] Albuterol 0.83 MG/ML Inhalant Solution 04/22/2021 06:22:25 PM EDT [facility] Patient on Coumadin during hospitalizati on. (To order Coumadin on discharge click the don t prescribe button and go to new orders on discharge section. Coumadin can be ordered there. Alternatively, reconcile the pre admission Coumadin dose if it appears on the list below) 04/17/2021 11:12:17 AM EDT [facility] ezetimibe 10 MG Oral Tablet 02/06/2021 12:00:00 AM EDT [facility] 24 HR Nicotine 0.292 MG/HR Transdermal Patch 02/06/2021 12:00:00 AM EDT [facility] Furosemide 20 MG Oral Tablet 02/06/2021 12:00:00 AM EDT [facility] Lisinopril 5 MG Oral Tablet 01/07/2021 12:00:00 AM EDT [facility] Aspirin 81 MG Delayed Release Oral Tablet 12/09/2020 12:00:00 AM ED T [facility] Furosemide 40 MG Oral Tablet 12/09/2020 12:00:00 AM EDT [facility] atorvastatin 80 MG Oral Tablet 12/06/2020 12:00:00 AM EDT eCW1 (Formerly [facility], 1928–1983) 12 HR Bupropion Hydrochloride 100 MG Extended Release Oral Tablet 12/06/2020 12:00:00 AM EDT eCW1 ([facility]) atorvastatin 80 MG Oral Tablet 12/06/2020 12:00:00 AM EDT eCW1 (Formerly [facility], 1928–1983) 12 HR Bupropion Hydrochloride 100 MG Extended Release Oral Tablet 12/06/2020 12:00:00 AM EDT eCW1 ([facility]) albuterol (PROVENTIL HFA;VENTOLIN HFA) 108 (90 Base) M CG/ACT inhaler 12/06/2020 12:00:00 AM EDT [facility] atorvastatin 80 MG Oral Tablet 12/06/2020 12:00:00 AM EDT [facility] gabapentin 800 MG Oral Tablet 12/06/2020 12:00:00 AM EDT [facility] Sumatriptan 100 MG Oral Tablet 12/06/2020 12:00:00 AM EDT [facility] atorvastatin 80 MG Oral Tablet 12/06/2020 12:00:00 AM EDT eCW1 (Formerly [facility], 1928–1983) 12 HR Bupropion Hydrochloride 100 MG Extended Release Oral Tablet 12/06/2020 12:00:00 AM EDT eCW1 ([facility]) 12 HR Bupropion Hydrochloride 100 MG Extended Release Oral Tablet 12/06/2020 12:00:00 AM EDT [facility] atorvastatin 80 MG Oral Tablet 12/06/2020 12:00:00 AM EDT eCW1 (Formerly [facility], 1928–1983) 12 HR Bupropion Hydrochloride 100 MG Extended Release Oral Tablet 12/06/2020 12:00:00 AM EDT eCW1 ([facility]) Amitriptyline Hydrochloride 100 MG Oral Tablet 11/25/2020 12:00:00 AM EDT [facility] 168 HR Buprenorphine 0.02 MG/HR Transdermal Patch 11/21/2020 12: 00:00 AM EST [facility] 28 ACTUAT Fluticasone propionate 0.1 MG/ACTUAT Dry Pow tasneem Inhaler [Flovent] 11/06/2020 12:00:00 AM EST [facility] SPIRIVA RESPIMAT 2.5 MCG/ACT AERS 11/06/2020 12:00:00 AM EST [facility] 28 ACTUAT tiotropium 0.0025 MG/ACTUAT Metered Dose Inh aler [Spiriva] 11/05/2020 12:00:00 AM EST eCW1 ([facility]) 28 ACTUAT Fluticasone propionate 0.1 MG/ACTUAT Dry Pow tasneem Inhaler [Flovent] 11/05/2020 12:00:00 AM EST eCW1 (Counts include 234 beds at the [facility]) Aspirin 81 MG Delayed Release Oral Tablet 11/05/2020 12:00:00 AM ES T eCW1 (Formerly [facility], 1928–1983) 28 ACTUAT tiotropium 0.0025 MG/ACTUAT Metered Dose Inh aler [Spiriva] 11/05/2020 12:00:00 AM EST eCW1 ([facility]) 28 ACTUAT Fluticasone propionate 0.1 MG/ACTUAT Dry Pow tasneem Inhaler [Flovent] 11/05/2020 12:00:00 AM EST eCW1 (Counts include 234 beds at the [facility]) Aspirin 81 MG Delayed Release Oral Tablet 11/05/2020 12:00:00 AM ES T eCW1 (Formerly [facility], 1928–1983) 28 ACTUAT tiotropium 0.0025 MG/ACTUAT Metered Dose Inh aler [Spiriva] 11/05/2020 12:00:00 AM EST eCW1 ([facility]) 28 ACTUAT Fluticasone propionate 0.1 MG/ACTUAT Dry Pow tasneem Inhaler [Flovent] 11/05/2020 12:00:00 AM EST eCW1 (Counts include 234 beds at the [facility]) Aspirin 81 MG Delayed Release Oral Tablet 11/05/2020 12:00:00 AM ES T eCW1 (Formerly [facility], 1928–1983) 28 ACTUAT tiotropium 0.0025 MG/ACTUAT Metered Dose Inh aler [Spiriva] 11/05/2020 12:00:00 AM EST eCW1 ([facility]) 28 ACTUAT Fluticasone propionate 0.1 MG/ACTUAT Dry Pow tasneem Inhaler [Flovent] 11/05/2020 12:00:00 AM EST eCW1 (Counts include 234 beds at the [facility]) Aspirin 81 MG Delayed Release Oral Tablet 11/05/2020 12:00:00 AM ES T eCW1 (Formerly [facility], [facility]–1983) Hydrocodone Bitartrate 10 MG / Ibuprofen 200 MG Oral Tablet [facility] Ibuprofen 200 MG Oral Tablet [facility]
[2021-07-08] MEDS ORDERED: ATOR80TA59 PO (17:29)
[2021-07-08] MEDS ORDERED: METO1TAB87 PO (17:29)
[2021-07-08 18:00] LABS: BASO % 0.5 % (0.0-1.0); EOS # 0.1 10^3/uL (0.0-0.5); EOS % 0.8 % (0.0-3.0); HEMATOCRIT 52.1 % (42.0-52.0); HEMOGLOBIN 15.8 g/dl (13.5-17.5); LYMPH # 3.1 10^3/uL (1.5-5.0); LYMPH % 34.5 % (24.0-44.0); MEAN CORPUSCULAR HEMOGLOBIN 28.1 pg (27.0-33.0); MEAN CORPUSCULAR HGB CONC 30.3 g/dl (32.0-36.5); MEAN CORPUSCULAR VOLUME 92.7 fl (80.0-96.0); MONO # 0.6 10^3/uL (0.0-0.8); MONO % 7.1 % (2.0-8.0); NEUTROPHILS % 56.8 % (36.0-66.0); PLATELET COUNT, AUTOMATED 280 10^3/uL (150-450); RED BLOOD COUNT 5.62 10^6/uL (4.30-6.10); WHITE BLOOD COUNT 8.9 10^3/uL (4.0-10.0)
--- OUTSIDE RECORDS SUMMARY | 2021-07-08 18:12 | CCD ---
Author Author [facility] Organization [facility] Address Unknown Phone Unavailable Care Team Providers Care Skiagrapher Name Role Phone Houck, Chandler Unavailable Unavailable Houck, Chandler Unavailable Unavailable Houck, Chandler Unavailable Unavailable Houck, Chandler Unavailable Unavailable Houck, Chandler Unavailable Unavailable Houck, Chandler Unavailable Unavailable Houck, Chandler Unavailable Unavailable Houck, Chandler Unavailable Unavailable Houck, Chandler Unavailable Unavailable Houck, Chandler Unavailable Unavailable Houck, Chandler Unavailable Unavailable Houck, Chandler Unavailable Unavailable Houck, Chandler Unavailable Unavailable Houck, Chandler Unavailable Unavailable Houck, Chandler Unavailable Unavailable Houck, Chandler Unavailable Unavailable Houck, Chandler Unavailable Unavailable Houck, Chandler Unavailable Unavailable Houck, Chandler Unavailable Unavailable Houck, Chandler Unavailable Unavailable Houck, Chandler Unavailable Unavailable Houck, Chandler Unavailable Unavailable Houck, Chandler Unavailable Unavailable Houck, Chandler Unavailable Unavailable Houck, Chandler Unavailable Unavailable Houck, Chandler Unavailable Unavailable Houck, Chandler Unavailable Unavailable Houck, Chandler Unavailable Unavailable Houck, Chandler Unavailable Unavailable Houck, Chandler Unavailable Unavailable Houck, Chandler Unavailable Unavailable Houck, Chandler Unavailable Unavailable Houck, Chandler Unavailable Unavailable Houck, Chandler Unavailable Unavailable Houck, Chandler Unavailable Unavailable Houck, Chandler Unavailable Unavailable Houck, Chandlre Unavailable Unavailable Houck, Chandler Unavailable Unavailable Houck, Chandler Unavailable Unavailable Houck, Chandler Unavailable Unavailable Houck, Chandler Unavailable Unavailable Houck, Chandler Unavailable Unavailable Houck, Chandler Unavailable Unavailable Houck, Chandler Unavailable Unavailable Houck, Chandler Unavailable Unavailable Houck, Chandler Unavailable Unavailable Houck, Chandler Unavailable Unavailable Houck, Chandler Unavailable Unavailable Houck, Chandler Unavailable Unavailable Houck, Chandler Unavailable Unavailable Houck, Chandler Unavailable Unavailable Houck, Chandler Unavailable Unavailable Houck, Chandler Unavailable Unavailable Houck, Chandler Unavailable Unavailable Houck, Chandler Unavailable Unavailable Houck, Chandler Unavailable Unavailable Houck, Chandler Unavailable Unavailable Houck, Chandler Unavailable Unavailable Houck, Chandler Unavailable Unavailable Houck, Chandler Unavailable Unavailable Houck, Chandler Unavailable Unavailable LATOYA HOUSE MD Unavailable [...] HOUSE MD Unavailable Unavailable Detor, M Keily FISHERIES TECHNICAL OFFICER Unavailable Unavailable Detor, M Keily FISHERIES TECHNICAL OFFICER Unavailable Unavailable Detor, M Keily FISHERIES TECHNICAL OFFICER Unavailable Unavailable Detor, M Keily FISHERIES TECHNICAL OFFICER Unavailable Unavailable Detor, M Keily FISHERIES TECHNICAL OFFICER Unavailable Unavailable Detor, M Keily FISHERIES TECHNICAL OFFICER Unavailable Unavailable Detor, M Keily FISHERIES TECHNICAL OFFICER Unavailable Unavailable Detor, M Keily FISHERIES TECHNICAL OFFICER Unavailable Unavailable Detor, M Keily FISHERIES TECHNICAL OFFICER Unavailable Unavailable Detor, M Keily FISHERIES TECHNICAL OFFICER Unavailable Unavailable Detor, M Keily FISHERIES TECHNICAL OFFICER Unavailable Unavailable Detor, M Keily FISHERIES TECHNICAL OFFICER Unavailable Unavailable Detor, M Keily FISHERIES TECHNICAL OFFICER Unavailable Unavailable Detor, M Keily FISHERIES TECHNICAL OFFICER Unavailable Unavailable Detor, M Keily FISHERIES TECHNICAL OFFICER Unavailable Unavailable Detor, M Keily FISHERIES TECHNICAL OFFICER Unavailable Unavailable Detor, M Keily FISHERIES TECHNICAL OFFICER Unavailable Unavailable Detor, M Keily FISHERIES TECHNICAL OFFICER Unavailable Unavailable Detor, M Keily FISHERIES TECHNICAL OFFICER Unavailable Unavailable Detor, M Keily FISHERIES TECHNICAL OFFICER Unavailable Unavailable Detor, M Keily FISHERIES TECHNICAL OFFICER Unavailable Unavailable Detor, M Keily FISHERIES TECHNICAL OFFICER Unavailable Unavailable Detor, M Keily FISHERIES TECHNICAL OFFICER Unavailable Unavailable Detor, M Keily FISHERIES TECHNICAL OFFICER Unavailable Unavailable Detor, M Keily FISHERIES TECHNICAL OFFICER Unavailable Unavailable Detor, M Keily FISHERIES TECHNICAL OFFICER Unavailable Unavailable Detor, M Keily FISHERIES TECHNICAL OFFICER Unavailable Unavailable Detor, M Keily FISHERIES TECHNICAL OFFICER Unavailable Unavailable Detor, M Keily FISHERIES TECHNICAL OFFICER Unavailable Unavailable Detor, M Keily FISHERIES TECHNICAL OFFICER Unavailable Unavailable Detor, M Keily FISHERIES TECHNICAL OFFICER Unavailable Unavailable Detor, M Keily FISHERIES TECHNICAL OFFICER Unavailable Unavailable Detor, M Keily FISHERIES TECHNICAL OFFICER Unavailable Unavailable Detor, M Keily FISHERIES TECHNICAL OFFICER Unavailable Unavailable Detor, M Keily FISHERIES TECHNICAL OFFICER Unavailable Unavailable Detor, M Keily FISHERIES TECHNICAL OFFICER Unavailable Unavailable Detor, M Keily FISHERIES TECHNICAL OFFICER Unavailable Unavailable LUTZ, F FAITH Unavailable Unavailable Godwin, N Azalea FURNACE TAPPER Unavailable Unavailable [place], N Azalea FURNACE TAPPER Unavailable Unavailable Godwin, N Azalea FURNACE TAPPER Unavailable Unavailable [place], N Azalea FURNACE TAPPER Unavailable Unavailable [place], N Azalea FURNACE TAPPER Unavailable Unavailable [place], N Azalea FURNACE TAPPER Unavailable Unavailable [place], N Azalea FURNACE TAPPER Unavailable Unavailable [place], N Azalea FURNACE TAPPER Unavailable Unavailable [place], N Azalea FURNACE TAPPER Unavailable Unavailable [place], N Azalea FURNACE TAPPER Unavailable Unavailable [place], N Azalea FURNACE TAPPER Unavailable Unavailable Godwin, N Azalea FURNACE TAPPER Unavailable Unavailable [place], N Azalea FURNACE TAPPER Unavailable Unavailable [place], N Azalea FURNACE TAPPER Unavailable Unavailable [place], N Azalea FURNACE TAPPER Unavailable Unavailable Godwin, N Azalea FURNACE TAPPER Unavailable Unavailable Godwin, N Azalea FURNACE TAPPER Unavailable Unavailable Godwin, N Azalea FURNACE TAPPER Unavailable Unavailable Godwin, N Azalea FURNACE TAPPER Unavailable Unavailable Godwin, N Azalea FURNACE TAPPER Unavailable Unavailable Godwin, N Azalea FURNACE TAPPER Unavailable Unavailable Godwin, N Azalea FURNACE TAPPER Unavailable Unavailable [place], N Azalea FURNACE TAPPER Unavailable Unavailable [place], N Azalea FURNACE TAPPER Unavailable Unavailable [place], N Azalea FURNACE TAPPER Unavailable Unavailable [place], N Azalea FURNACE TAPPER Unavailable Unavailable Godwin, N Azalea FURNACE TAPPER Unavailable Unavailable Godwin, N Azalea FURNACE TAPPER Unavailable Unavailable Godwin, N Azalea FURNACE TAPPER Unavailable Unavailable Godwin, N Azalea FURNACE TAPPER Unavailable Unavailable Godwin, N Azalea FURNACE TAPPER Unavailable Unavailable Godwin, N Azalea FURNACE TAPPER Unavailable Unavailable Godwin, N Azalea FURNACE TAPPER Unavailable Unavailable [place], V JENNIFER PA-C Unavailable Unavailable Laurence, V JENNIFER PA-C Unavailable Unavailable [place], V JENNIFER PA-C Unavailable Unavailable Laurence, V JENNIFER PA-C Unavailable Unavailable Laurence, V JENNIFER PA-C Unavailable Unavailable Laurence, V JENNIFER PA-C Unavailable Unavailable [place], V JENNIFER PA-C Unavailable Unavailable Laurence, V JENNIFER PA-C Unavailable Unavailable [place], V JENNIFER PA-C Unavailable Unavailable Laurence, V JENNIFER PA-C Unavailable Unavailable [place], V JENNIFER PA-C Unavailable Unavailable Laurence, V JENNIFER PA-C Unavailable Unavailable [place], V JENNIFER PA-C Unavailable Unavailable Laurence, V [...] Unavailable Cooper, L Virginia RPA Unavailable Unavailable Houck, Chandler Unavailable Unavailable Houck, Chandler Unavailable Unavailable Houck, Chandler Unavailable Unavailable Houck, Chandler Unavailable Unavailable Houck, Chandler Unavailable Unavailable Houck, Chandler Unavailable Unavailable Houck, Chandler Unavailable Unavailable Houck, Chandler Unavailable Unavailable Houck, Chandler Unavailable Unavailable Houck, Chandler Unavailable Unavailable Houck, Chandler Unavailable Unavailable Houck, Chandler Unavailable Unavailable Houck, Chandler Unavailable Unavailable Houck, Chandler Unavailable Unavailable Houck, Chandler Unavailable Unavailable Houck, Chandler Unavailable Unavailable Houck, Chandler Unavailable Unavailable Houck, Chandler Unavailable Unavailable Houck, Chandler Unavailable Unavailable Houck, Chandler Unavailable Unavailable Houck, Chandler Unavailable Unavailable Houck, Chandler Unavailable Unavailable Houck, Chandler Unavailable Unavailable Houck, Chandler Unavailable Unavailable Houck, Chandler Unavailable Unavailable Houck, Chandler Unavailable Unavailable Houck, Chandler Unavailable Unavailable Houck, Chandler Unavailable Unavailable Houck, Chandler Unavailable Unavailable Houck, Chandler Unavailable Unavailable Houck, Chandler Unavailable Unavailable Houck, Chandler Unavailable Unavailable Houck, Chandler Unavailable Unavailable Houck, Chandler Unavailable Unavailable Houck, Chandler Unavailable Unavailable Houck, Chandler Unavailable Unavailable Houck, Chandler Unavailable Unavailable Houck, Chandler Unavailable Unavailable Houck, Chandler Unavailable Unavailable Houck, Chandler Unavailable Unavailable Houck, Chandler Unavailable Unavailable Houck, Chandler Unavailable Unavailable Houck, Chandler Unavailable Unavailable Houck, Chandler Unavailable Unavailable Houck, Chandler Unavailable Unavailable Houck, Chandler Unavailable Unavailable Houck, Chandler Unavailable Unavailable Houck, Chandler Unavailable Unavailable Houck, Chandler Unavailable Unavailable Houck, Chandler Unavailable Unavailable Houck, Chandler Unavailable Unavailable Houck, Chandler Unavailable Unavailable Houck, Chandler Unavailable Unavailable Houck, Chandler Unavailable Unavailable Houck, Chandler Unavailable Unavailable Houck, Chandler Unavailable Unavailable Houck, Chandler Unavailable Unavailable Houck, Chandler Unavailable Unavailable Houck, Chandler Unavailable Unavailable Houck, Chandler Unavailable Unavailable Houck, Chandler Unavailable Unavailable WetterhahnMauricio MD Unavailable Unavailable [...] Unavailable Toby Parish MD Unavailable Unavailable Toby Praish MD Unavailable Unavailable Toby Parish MD Unavailable [...] is protected by Article 27-F of the [facility] Public Health law. If you continue you may have access to information: Regarding HIV / AIDS; Provided by facilities licensed or operated by the [facility] Office of Mental Health; or Provided by the [facility] Office for People With Developmental Disabilities. If such information is present, then the following [facility] mandated warning applies: This information has [...] law may result in a fine or usp sentence or both. A general authorization for the release of medical or other information is NOT sufficient authorization for further disc losure. Allergies and Adverse Reactions Type Description Substance Reaction Status Data Source(s ) Propensity to adverse reactions CODEINE Codeine Rash Medium Ac tive [facility] Medium Encounters Encounter Providers Location Date Indications Data Source(s ) [place] [address] [facility] [place] [address] 06/26/2021 12:00:00 AM EDT eCW1 ([facility]ly [facility]) Outpatient SJP.CT-SJP.SYR 06/20/2021 01:01:19 PM EDT [facility] Unknown [address] [facility] [facility] [place] [address] 06/20/2021 12:00:00 AM EDT eCW1 ([facility]ly [facility]) [place] [address] [facility] [place] [address] 06/19/2021 12:00:00 AM EDT eCW1 ([facility]) Unknown [address] [facility] [place] [address] 05/28/2021 12:00:00 AM EDT eCW1 ([facility]) BF-BF 05/21/2021 06:14:57 PM EDT [facility] Outpatient SJPGEOVANISJP.KENNY 05/21/2021 12:00:00 AM EDT [facility] Unknown [address] [facility] [place] [address] 05/14/2021 12:00:00 AM EDT eCW1 ([facility]) Outpatient Referrer: Toby MOJICACT-SJP.SYR 04/14 11:34:18 AM EDT [facility] Outpatient Attender: Azalea LAMAR-SJP.KENNY 021 12:00:00 AM EDT - 04/28/2021 03:49:[address] [facility] Outpatient IONSJP.KENNY 04/28/2021 12:00:00 AM EDT [facility] Inpatient Admitter: Chandler CorriganReferrer: ROWAN Padilla MD ES1-SJ.ANES 04/17/2021 07:21:[address] [facility] Inpatient Attender: Chandler CorriganAdmitter: Chandler Corrigan ES1 -[id number] 04/17/2021 05:18:00 AM EDT - 04/23/2021 05:58:00 PM EDT [facility] Patient discharged. Outpatient Attender: Chandler CorriganReferrer: Chandler GARCIA -SJ.PL 04/14/2021 09:23:36 AM EDT - 04/14/2021 11:59:00 PM EDT [facility] Patient discharged. Outpatient Attender: Chandler CorriganReferrer: Chandler HARRIS -MOB.PAT 04/14/2021 08:39:44 AM EDT - 04/14/2021 10:06:57 AM EDT [facility] Outpatient Referrer: FAITH JA HARRIS-MOB.PAT 04/14/2021 08:25:17 AM EDT - 04/14/2021 08:25:[address] [facility] Outpatient Referrer: Keily MARTINEZ 04/08/2021 08:33:19 A M EDT [facility] Outpatient Attender: Chandler KIMBALL.BAL 12:00:00 AM EDT - 04/07/2021 03:20:13 [facility] [address] [facility] [facility] [address], [facility] [address] 03/04/2021 12:00:00 AM EDT eCW1 ([facility]) Outpatient RENEKENNY 02/07/2021 11:51:01 AM EDT [facility] Outpatient Attender: JENNIFER LAMAR-SJElvinKENNY 01:22:41 PM EDT - 02/06/2021 02:53:39 PM EDT [facility] Outpatient Attender: Virginia Shi/Edis/Kings/Robel fernandez 01/15/2021 01:00:00 PM EDT [facility] ([facility] ) Outpatient Attender: JENNIFER LEMONSJErin.KNENY 11/2020 01:57:32 PM EDT - 01/13/2021 03:27:27 PM EDT [facility] Outpatient Attender: JENNIFER Kenferrer: Mercedes MOJICAKENNY-SJP.KENNY 01/06/2021 02:29:51 PM EDT - 01/06/2021 03:53:36 PM EDT [facility] Outpatient Attender: SUSAN HOUSE MDAdm itter: SUSAN HOUSE MDReferrer: Toby Parish MD ES1-SJ.CVAU 12/10/2020 09:18:00 AM EDT - 12/10/2020 04:58:00 PM EDT [facility] Patient discharged. Outpatient Attender: Toby Parish MD SJErin.KENNY-SJP.KENNY 11/12 12:00:00 AM EDT - 12/09/2020 11:50:14 AM EDT [facility] [place] [address] [facility] [place] [address] 12/06/2020 12:00:00 AM EDT eCW1 ([facility]) Outpatient Attender: [place] Shi/Edis/Kings/Robel fernandez 11/26/2020 01:45:00 PM EDT [facility] ([facility] [place] [address] [place] [address] 11/08/2020 12:00:00 AM EST eCW1 ([facility]) [place] [address] [facility] [place] [address] 11/05/2020 12:00:00 AM EST eCW1 ([facility]) [place]patient [address] [facility] [facility] [place] [address] 11/05/2020 12:00:00 AM EST eCW1 ([facility]) Unknown [address] [facility] [place] [address] 11/04/2020 12:00:00 AM EST eCW1 ([facility]) [place] [address] [facility] [place] [address] 06/25/2020 12:00:00 AM EDT eCW1 ([facility]) Immunizations Vaccine Date Status Description Data Source(s) 207 12/18/2020 12:00:00 AM EDT completed <td I D="[id number]">Covid-19 (Moderna)</td><td>12/18/2020, 11/12/2020</td><td></td> [facility] COVID-19 VACCINE Moderna 12/18/2020 12:00:00 AM EDT completed [facility]SIIS Vaccine Series Complete: YESThis Data wa s Submitted to [facility] Via [employer]. 207 11/12/2020 12:00:00 AM EST completed <td I D="[id number]">Covid-19 (Moderna)</td><td>12/18/2020, 11/12/2020</td><td></td> [facility] COVID-19 VACCINE Moderna 11/12/2020 12:00:00 AM EST completed [facility]SIIS Vaccine Series Complete: NOThis Data was Submitted to [facility] Via [employer]. Medications Medication Brand Name Start Date Product [...] activ e oxyCODONE HCl 15 MG eCW1 ([facility]) Acetaminophen 325 MG / Hydrocodone Robinson trate 10 MG Oral Tablet HYDROcodone- Acetaminophen 10-325 MG HYDROcodone-Acetaminophen 10-325 MG 06/26/2021 12:00:0 0 AM EDT 1.0 {tablet_as_needed} active HYDROcodone-Acetaminophen 10- 325 MG eCW1 ([facility]) Oxycodone Hydrochloride 15 MG Oral Tablet oxyCODONE HC l 15 MG oxyCODONE HCl 15 MG 06/26/2021 12:00:00 AM EDT 1.0 {tablet} activ e oxyCODONE HCl 15 MG eCW1 ([facility]) Acetaminophen 325 MG / Hydrocodone Robinson trate 10 MG Oral Tablet HYDROcodone- Acetaminophen 10-325 MG HYDROcodone-Acetaminophen 10-325 MG 06/26/2021 12:00:0 0 AM EDT 1.0 {tablet_as_needed} active HYDROcodone-Acetaminophen 10- 325 MG eCW1 ([facility]) 25 mg 06/20/2021 12:00:00 AM EDT tablet 60 TAKE ONE TABLET BY MOUTH TWICE A DAY TAKE ONE TABLET BY MOUTH TWICE A DAY SOLD: 06/24/2021 [employer] Metoprolol Tartrate 25 MG Oral Tablet Metoprolol Tartrate 25 MG 06/19/2021 12:00:00 AM EDT 1.0 {tablet_with_food} active Metoprolol Tartrate 25 MG eCW1 ([facility]) Metoprolol Tartrate 25 MG Oral Tablet Metoprolol Tartrate 25 MG 06/19/2021 12:00:00 AM EDT 1.0 {tablet_with_food} active Metoprolol Tartrate 25 MG eCW1 ([facility]) Metoprolol Tartrate 25 MG Oral Tablet Metoprolol Tartrate 25 MG 06/19/2021 12:00:00 AM EDT 1.0 {tablet_with_food} active Metoprolol Tartrate 25 MG eCW1 ([facility]) 1 mg 06/13/2021 12:00:00 AM EDT tablet [...] tablet (81 mg total) by mouth daily [facility] Daily Hoa (THERAGRAN) per tablet [id number] 04/24/2021 12:00:00 AM EDT 1 {tbl} Oral active Take 1 tablet by mouth d coreeny [facility] Folic Acid 1 MG Oral Tablet folic acid (FOLVITE) 1 MG tablet folic acid (FOLVITE) 1 MG tablet 04/24/2021 12:00:00 AM EDT 1 mg Oral active Take 1 tablet (1 mg total) by mouth daily [facility] Warfarin Sodium 2 MG Oral Tablet warfarin (COUMADIN) t ablet 1 mg warfarin (COUMADIN) tablet 1 mg 04/23/2021 05:00:00 PM EDT 1 mg Oral completed 1 mg, Oral, WAR17, First dose on Wed04/23/21 at 1700, For 1 dose
For administration and preparation considerations, refer to Hazardous Drugs in the Workplace Policy on Intr[employer].
[facility] Medication administered onsite Metoprolol Tartrate 25 MG Oral Tablet me toprolol tartrate (LOPRESSOR) tablet 12.5 mg metoprolol tartrate (LOPRESSOR) tablet 12.5 mg 11:00:00 AM EDT 12.5 mg Oral active 12.5 mg, Oral, 2 times daily, First dose on Wed04/23/21 at 1100
Hold for SBP less than 100, HR less than 60
[facility] Medication administered onsite Daily Hoa (THERAGRAN) 1 tablet [id number] 04/23/2021 09:00:00 AM EDT 1 {tbl} Oral active 1 tablet, Oral, Daily, First dose on Wed04/23/21 at 0900, Post-op [facility] Medication administered onsite Folic Acid 1 MG Oral Tablet folic acid (FOLVITE) table t 1 mg folic acid (FOLVITE) tablet 1 mg 04/23/2021 09:00:00 AM EDT 1 mg Oral active 1 mg, Oral, Daily, First dose on Wed04/23/21 at 0900, Post-op [facility] Medication administered onsite Warfarin Sodium 1 MG Oral Tablet warfarin (COUMADIN) 1 MG tablet warfarin (COUMADIN) 1 MG tablet 04/23/2021 12:00:00 AM EDT 1 mg Oral active Take 1 tablet (1 mg total) by mouth daily [facility] Metoprolol Tartrate 25 MG Oral Tablet me toprolol tartrate (LOPRESSOR) 25 MG tablet metoprolol tartrate (LOPRESSOR) 25 MG tablet 04/23/2021 12:0 0:00 AM EDT 12.5 mg Oral active Take 0.5 tablets (12.5 mg total) by mouth daily [facility] ferrous gluconate 324 MG Oral Tablet ferrous gluconate (FERGON) 324 MG tablet ferrous gluconate (FERGON) 324 MG tablet 04/23/2021 12:00:00 AM EDT 324 mg Oral active Take 1 tablet (324 m g total) by mouth daily with breakfast [facility] Acetaminophen 325 MG Oral Tablet acetaminophen (TYLENO L) 325 MG tablet acetaminophen (TYLENOL) 325 MG tablet 04/23/2021 12:00:00 AM EDT 65 0 mg Oral active Take 2 tablets (650 mg total) by mouth every 4 (four) hours as needed for pain [facility] heparin (porcine) injection 5,000 Units [id number] 04/22/20 10:00:00 PM EDT 5000 U Subcutaneous active 5,000 Units , Subcutaneous, Every 8 hours (scheduled), First dose on Wed04/22/21 at 2200, Post-op
Hold for platelet count less than 90,000, INR greater than or equal to 1.7 if receiving coumadin therapy
[facility] Medication administered onsite normal saline flush 0.9 % injection 3 mL [id number] 04/22/2021 09:00:00 PM EDT 3 mL Intravenous active 3 mL , Intravenous, PROTOCOL, First dose on Wed04/22/21 at 2100, Post-op
May convert IV to a saline lock when taking in good p.o. intake (minimally 600 mL).
[facility] Medication administered onsite ferrous gluconate 324 MG Oral Tablet ferrous gluconate (FERGON) tablet 324 mg ferrous gluconate (FERGON) tablet 324 mg 04/22/2021 09:00:00 PM EDT 324 mg Oral active 324 mg, Oral, 2 times daily, First dose on Wed04/22/21 at 2100, Post-op
Start when taking good p.o. intake.
[facility] Medication administered onsite Docusate Sodium 100 MG Oral Capsule docusate sodium (C OLACE) capsule 100 mg docusate sodium (COLACE) capsule 100 mg 04/22/2021 09:00:00 PM EDT 100 mg Oral active 100 mg, Oral, 2 times daily, First dose on Wed04/22/21 at 2100, Post-op
hold for loose stools
[facility] Medication administered onsite Magnesium Chloride 0.61113 MEQ/ML / Pota ssium Chloride 0.0497 MEQ/ML / Sodium Acetate 0.0163 MEQ/ML / Sodium Chloride 0.0899 MEQ/ML / Sodium gluconate 5.02 MG/ML Injectable Solution [Normosol-R] electrolyte-R (NORMOSOL-R/PLASMALYTE-R) solution electrolyte-R (NORMOSOL-R/PLASMALYTE-R) solution 04/22 07:00:00 PM EDT Intravenous active at 1 00 mL/hr, Intravenous, Continuous, Starting on Wed04/22/21 at 1900, PACU & Post-op [facility] Medication administered onsite POLYETHYLENE GLYCOL 3350 142 MG/ML Oral Solution polyethylene glycol (GLYCOLAX) packet 17 g polyethylene glycol (GLYCOLAX) packet 17 g 04/22/2021 07:00:00 PM EDT 17 g Oral active 17 g, Or al, Daily, First dose on Wed04/22/21 at 1900, Post-op
Start 2nd POD and continue until result.
[facility] Medication administered onsite acetaminophen (TYLENOL) 325 MG [...] Wed04/22/21 at 1822, Post-op [Order 2 End] [facility] Medication administered onsite potassium chloride SA (K-DUR,KLOR-CON) CR tablet 10 mEq [id number] 04/22/2021 06:22:27 PM EDT 10 meq Oral active 10 mEq, Oral, As needed, Serum K+ 3.9-4.1, Starting on Wed04/22/21 at 1822, Post-op
For serum creatinine (SCR) greater than 1.5
[facility] Medication administered onsite potassium chloride SA (K-DUR,KLOR-CON) CR tablet 20 mEq 6203 704/22/2021 06:22:27 PM EDT 20 meq Oral active 20 mEq, Oral, As needed, Serum K+ 3.5-3.8, Starting on Wed04/22/21 at 1822, Post-op
For serum creatinine (SCR) greater than 1.5
[facility] Medication administered onsite potassium chloride SA (K-DUR,KLOR-CON) CR tablet 20 mEq 6203 04/22/2021 06:22:27 PM EDT 20 meq Oral active 20 mEq, Oral, As needed, Serum K+ 3.9-4.1, Starting on Wed04/22/21 at 1822, Post-op
For serum creatinine (SCR) 0.8 to 1.5
[facility] Medication administered onsite ondansetron (ZOFRAN) injection 4 mg [id number] 04/22/2021 06:22:2 7 PM EDT 4 mg Intravenous active 4 mg, In travenous, Every 6 hours PRN, nausea, vomiting, Starting on Wed04/22/21 at 1822, Post-op
If no response in 15-30 minutes, give metoclopramide 10 mg IV x 1 then q6h prn N/V.
[facility] Medication administered onsite potassium chloride SA (K-DUR,KLOR-CON) CR tablet 40 mEq 6203 04/22/2021 06:22:27 PM EDT 40 meq Oral active 40 mEq, Oral, As needed, Serum K+ 3.5-3.8, Starting on Wed04/22/21 at 1822, Post-op
For serum creatinine (SCR) 0.8 to 1.5
[facility] Medication administered onsite 10 ML Atropine Sulfate [...] or 0.04 mg/kg. Max of 6 doses
[facility] Medication administered onsite magnesium sulfate 1 g in dextrose 5% infusion (premix) [id number] 04/22/2021 06:22:26 PM EDT 1 g Intravenous active 1 g, Intravenous, at 200 mL/hr, As needed, serum Mg 1.9-2.1, Starting on Wed04/22/21 at 1822, Post-op
Give 1 grams magnesium sulfate IV x 1 run over 1 hour For serum creatinine (SCR) greater than 1.5
[facility] Medication administered onsite 50 ML Magnesium Sulfate [...] For serum creatinine (SCR) greater than 1.5
[facility] Medication administered onsite 50 ML Magnesium Sulfate [...] For serum creatinine (SCR) 0.8 to 1.5
[facility] Medication administered onsite 50 ML Magnesium Sulfate [...] For serum creatinine (SCR) 0.8 to 1.5
[facility] Medication administered onsite Bisacodyl 10 MG Rectal Suppository bisacodyl (DULCOLAX ) suppository 10 mg bisacodyl (DULCOLAX) suppository 10 mg 04/22/2021 06:22:26 PM EDT 10 mg Rectal active 10 mg, Rectal, Daily PRN, constipation, Starting on Wed04/22/21 at 1822, Post-op
If polyethylene glycol not effective.
[facility] Medication administered onsite Nitroglycerin 0.4 MG Sublingual Tablet n itroglycerin (NITROSTAT) SL tablet 0.4 mg nitroglycerin (NITROSTAT) SL tablet 0.4 mg 04/22/2021 06:22:26 P M EDT 0.4 mg Sublingual active 0.4 mg, S ublingual, Every 5 min PRN, chest pain, Starting on Wed04/22/21 at 1822, Post-op
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 Notify MD/PA/FURNACE TAPPER.
[facility] Medication administered onsite Aluminum Hydroxide 64 MG/ML Oral Suspens ion aluminum hydroxide (ALTERNAGEL) suspension 15 mL aluminum hydroxide (ALTERNAGEL) suspension 15 mL 04/22 06:22:26 PM EDT 15 mL Oral active 15 mL, Oral, Every 4 hours PRN, for indigestion/ gas, Starting on Wed04/22/21 at 1822, Post-op [facility] Medication administered onsite Albuterol 0.83 MG/ML Inhalant Solution a lbuterol (PROVENTIL) nebulizer solution 2.5 mg albuterol (PROVENTIL) nebulizer solution 2.5 mg 2020 06:22:25 PM EDT 2.5 mg active 2.5 mg, Nebulization, RT every 2 hours as needed, wheezing, shortness of breath, Starting on Wed04/22/21 at 1822, Post-op [facility] Medication administered onsite warfarin (COUMADIN) tablet 3 mg 04/19/2021 05:00:00 PM EDT 3 mg Oral completed 3 mg, Oral, WAR17, F irst dose on 04/19/21 at 1700, For 1 dose
For administration and preparation considerations, refer to Hazardous Drugs in the Workplace Policy on Intran[employer].
[facility] Medication administered onsite gabapentin 800 MG Oral Tablet gabapentin (NEURONTIN) t ablet 400 mg gabapentin (NEURONTIN) tablet 400 mg 04/19/2021 03:00:00 PM EDT 400 mg Oral active 400 mg, Oral, 3 times daily, First dose (after last modification) on Wed04/19/21 at 1500 [facility] Medication administered onsite norepinephrine bitartrate (LEVOPHED) 4 m g in sodium chloride (NS) 0.9 % 250 mL infusion 04/19/2021 01:00:00 PM EDT ug/min Intravenous aborted 0-4 mcg/min (0-15 mL/hr), Intravenous, Continuous, Starting on Wed04/19/21 at 1300, Until Wed04/22/21 at 1822, at 0-15 mL/hr [facility] Medication administered onsite Buprenorphine 8 MG / [...] the same time as other po medications
[facility] Medication administered onsite albumin human 5 % bottle 12.5 g [id number] 04/19/2021 12:00:00 PM EDT 12.5 g Intravenous completed Systolic Hypotension 12. 5 g, Intravenous, Once, Indications: Systolic Hypotension, On 04/19/21 at 1200, For 1 dose [facility] Systolic Hypotension Medication administered onsite albumin human 5 % bottle 12.5 g [id number] 04/19/2021 11:00:00 AM EDT 12.5 g Intravenous completed Hypotension 12.5 g, Intr avenous, Once, Indications: Hypotension, On 04/19/21 at 1100, For 1 dose [facility] Hypotension Medication administered onsite POLYETHYLENE GLYCOL 3350 142 MG/ML Oral Solution polyethylene glycol (GLYCOLAX) packet 17 g polyethylene glycol (GLYCOLAX) packet 17 g 04/19/2021 09:00:00 AM EDT 17 g Oral aborted 17 g, Or al, Daily, First dose on 04/19/21 at 0900, PACU & Post-op
Starting 2nd POD, give every day until result
[facility] Medication administered onsite Amiodarone hydrochloride 200 MG Oral Tablet amiodarone (PACERONE) tablet 400 mg amiodarone (PACERONE) tablet 400 mg 04/19/2021 09:00:00 AM EDT 400 mg Oral aborted 400 mg, Oral, Daily, First d ose on 04/19/21 at 0900 [facility] Medication administered onsite Amlodipine 10 MG Oral Tablet amLODIPine (NORVASC) tabl et 10 mg amLODIPine (NORVASC) tablet 10 mg 04/19/2021 09:00:00 AM EDT 10 mg Oral aborted 10 mg, Oral, Daily, First dose on 04/19/21 at 0900 [facility] Medication administered onsite ferrous gluconate 324 MG Oral Tablet ferrous gluconate (FERGON) tablet 324 mg ferrous gluconate (FERGON) tablet 324 mg 04/19/2021 07:00:00 AM EDT 324 mg Oral aborted 324 mg, Oral, 2 times daily before meals, First dose on 04/19/21 at 0700, PACU & Post-op
Start POD #2
[facility] Medication administered onsite Amlodipine 10 MG Oral Tablet amLODIPine (NORVASC) tabl et 10 mg amLODIPine (NORVASC) tablet 10 mg 04/19/2021 12:00:00 AM EDT 10 mg Oral completed 10 mg, Oral, Once, On Wed04/19/21 at 0000, For 1 dose [facility] Medication administered onsite Lisinopril 10 MG Oral Tablet lisinopril (PRINIVIL,ZEST RIL) tablet 5 mg lisinopril (PRINIVIL,ZESTRIL) tablet 5 mg 04/18/2021 09:00:00 PM EDT 5 mg Oral completed 5 mg, Oral, Once, On Wed04/18/21 at 2100, For 1 dose [facility] Medication administered onsite Lisinopril 10 MG Oral Tablet lisinopril (PRINIVIL,ZEST RIL) tablet 5 mg lisinopril (PRINIVIL,ZESTRIL) tablet 5 mg 04/18/2021 07:00:00 PM EDT 5 mg Oral aborted 5 mg, Oral, Da lane, First dose on Wed04/18/21 at 1900
Hold for SBP <105
[facility] Medication administered onsite Warfarin Sodium 2 MG Oral Tablet warfarin (COUMADIN) t ablet 2 mg warfarin (COUMADIN) tablet 2 mg 04/18/2021 05:00:00 PM EDT 2 mg Oral completed 2 mg, Oral, WAR17, First dose on Wed04/18/21 at 1700, For 1 dose
For administration and preparation considerations, refer to Hazardous Drugs in the Workplace Policy on Intr[employer]et.
[facility] Medication administered onsite albumin human 5 % bottle 12.5 g [id number] 04/18/2021 02:00:00 PM EDT 12.5 g Intravenous completed 12.5 g, Intra venous, Once, Indications: low urine output, On Wed04/18/21 at 1400, For 1 dose [facility] Medication administered onsite 168 HR Buprenorphine 0.01 MG/HR Transder mal Patch buprenorphine (BUTRANS) 10 MCG/HR 2 patch buprenorphine (BUTRANS) 10 MCG/HR 2 patch 04/18/2021 0 9:00:00 AM EDT 2 {patch} Topical active 2 patc h, Topical, Administer over 7 Days, Every 7 days, First dose on Wed04/18/21 at 0900, For 7 days
Apply 2 patches (10mcg/hr per patch) to make dose of 20mcg/hr
[facility] Medication administered onsite Ascorbic Acid 500 MG Oral Tablet ascorbic acid (VITAMI N C) tablet 500 mg ascorbic acid (VITAMIN C) tablet 500 mg 04/18/2021 09:00:00 AM EDT 500 mg Oral active 500 mg, Oral, Daily, First dose on Wed04/18/21 at 0900
Give PO/OG. Start first POD.
[facility] Medication administered onsite Docusate Sodium 100 MG Oral Capsule docusate sodium (C OLACE) capsule 100 mg docusate sodium (COLACE) capsule 100 mg 04/18/2021 09:00:00 AM EDT 100 mg Oral aborted 100 mg, Oral, Daily, First dose on Wed04/18/21 at 0900, PACU & Post-op
Give PO/OG. Start first POD
[facility] Medication administered onsite Folic Acid 1 MG Oral Tablet folic acid (FOLVITE) table t 1 mg folic acid (FOLVITE) tablet 1 mg 04/18/2021 09:00:00 AM EDT 1 mg Oral aborted 1 mg, Oral, Daily, First dose on Wed04/18/21 at 0900, PACU & Post-op
Give PO/OG. Start first POD
[facility] Medication administered onsite normal saline flush 0.9 % injection 3 mL [id number] 04/18/2021 09:00:00 AM EDT 3 mL Intravenous aborted 3 mL , Intravenous, PROTOCOL, First dose on Wed04/18/21 at 0900, PACU & Post-op
May convert to saline lock with minimally 600 ml PO intake on first POD; prior to transfer
[facility] Medication administered onsite Aspirin 81 MG Delayed Release Oral Tablet aspirin EC t ablet 81 mg aspirin EC tablet 81 mg 04/18/2021 09:00:00 AM EDT 81 mg Oral activ e 81 mg, Oral, Daily, First dose on Wed04/18/21 at 0900
Hold for platelet count less than 90,000. If OG tube in place, give non-enteric coated aspirin.
[facility] Medication administered onsite Famotidine 20 MG Oral Tablet famotidine (PEPCID) table t 20 mg famotidine (PEPCID) tablet 20 mg 04/18/2021 09:00:00 AM EDT 20 mg Oral active 20 mg, Oral, Daily, First dose (after last reorder) on Wed04/18/21 at 0900
Start after extubation Dose adjusted per pharmacy renal dosing protocol
[facility] Medication administered onsite heparin (porcine) injection 5,000 Units [id number] 04/18/20 06:00:00 AM EDT 5000 U Subcutaneous aborted 5,000 Units , Subcutaneous, Every 8 hours (scheduled), First dose on Wed04/18/21 at 0600, PACU & Post-op
Start first POD. Hold for platelet count less than 90,000, INR greater than or equal to 1.7 if receiving coumadin therapy.
[facility] Medication administered onsite Amitriptyline Hydrochloride 25 MG Oral T ablet amitriptyline (ELAVIL) tablet 100 mg amitriptyline (ELAVIL) tablet 100 mg 04/17/2021 09:00:00 PM EDT 100 mg Oral active 100 mg, Oral, Nightl y, First dose on Wed04/17/21 at 2100 [facility] Medication administered onsite atorvastatin 80 MG Oral Tablet atorvastatin (LIPITOR) tablet 80 mg atorvastatin (LIPITOR) tablet 80 mg 04/17/2021 09:00:00 PM EDT 80 mg Oral active 80 mg, Oral, Nightly, First dose on Gerri 04/17/21 at 2100 [facility] Medication administered onsite Mupirocin 0.02 MG/MG Topical Ointment mupirocin (BACTR OBAN) 2 % ointment mupirocin (BACTROBAN) 2 % ointment 04/17/2021 09:00:00 PM EDT Nasal completed Nasal, 2 times daily , 7 doses, First dose on Wed04/17/21 at 2100, Last dose on Wed04/20/21 at 2100 [facility] Medication administered onsite 60 ACTUAT mometasone furoate 0.2 MG/ACTU AT Dry Powder Inhaler mometasone furoate (ASMANEX) DPI 220 mcg/inh inhaler mometasone furoate (ASMANEX) DPI 220 mcg /inh inhaler 04/17/2021 08:00:00 PM EDT 1 {puff} Inhalation acti ve 1 puff, Inhalation, 2 times daily, First dose on Wed04/17/21 at 2000 [facility] Medication administered onsite Dexmedetomidine HCl 400 mcg in sodium chloride (NS) 0.9 % 10 0 mL infusion 04/17/2021 07:00:00 PM EDT ug/kg/h Intravenous aborted Post-op, 0.2- 0.7 mcg/kg/hr 64.9 kg (3.245-11.3575 mL/hr, rounded to 3.2-11.4 mL/hr), Intravenous, Continuous, Starting on Wed04/17/21 at 1900, Until Wed04/18/21 at 0539, at 3.2- 11.4 mL/hr [facility] Medication administered onsite ezetimibe 10 MG Oral Tablet ezetimibe (ZETIA) tablet 1 0 mg ezetimibe (ZETIA) tablet 10 mg 04/17/2021 06:00:00 PM EDT 10 mg Oral activ e 10 mg, Oral, Daily, First dose on Wed04/17/21 at 1800 [facility] Medication administered onsite Cefazolin 1000 MG Injection [...] minutes. Use within 1 hour of reconstitution
[facility] Medication administered onsite gabapentin 800 MG Oral Tablet gabapentin (NEURONTIN) t ablet 800 mg gabapentin (NEURONTIN) tablet 800 mg 04/17/2021 03:00:00 PM EDT 800 mg Oral aborted 800 mg, Oral, 3 times daily, First dose on Gerri 04/17/21 at 1500 [facility] Medication administered onsite amiodarone HCl 900 mg in dextrose 5 % 500 mL infusion 04/17/2021 02:00:00 PM EDT mg/min Intravenous aborted 0.5- 1 mg/min (16.6667-33.3333 mL/hr, rounded to 16.7-33.3 mL/hr), Intravenous, Continuous, Starting on Gerri 04/17/21 at 1400, Until 04/19/21 at 0624, at 16.7-33.3 mL/hr [facility] Medication administered onsite 3 ML Amiodarone hydrochloride 50 MG/ML I njection amiodarone (CORDARONE) injection SOLN 150 mg amiodarone (CORDARONE) injection SOLN 150 mg 02:00:00 PM EDT 150 mg Intravenous completed 150 mg, Intravenous, Once, On Gerri 04/17/21 at 1400, For 1 dose
Administer through 0.22 micron filter, mix in 100 mL D5W and infuse over 10 minutes
[facility] Medication administered onsite Ipratropium Ribera 0.2 MG/ML Inhalant S olution ipratropium (ATROVENT) 0.02 % nebulizer solution 0.5 mg ipratropium (ATROVENT) 0.02 % nebulizer solution 0.5 mg 04/17/2021 12:00:00 PM EDT 0.5 mg active 0.5 mg, Nebulization, 4 times daily, First dose on Gerri 04/17/21 at 1200 [facility] Medication administered onsite Vitamin B 12 1 MG/ML Injectable Solution cyanocobalami n injection 1,000 mcg cyanocobalamin injection 1,000 mcg 04/17/2021 12:00:00 PM EDT 10 00 ug Subcutaneous completed 1,000 mcg, S ubcutaneous, Once, On Gerri 04/17/21 at 1200, For 1 dose, PACU & Post-op
DEEP SUBCUTANEOUS
[facility] Medication administered onsite Famotidine (PEPCID) injection 20 mg [id number] 04/17/2021 12:00:0 0 PM EDT 20 mg Intravenous aborted 20 mg, I ntravenous, Every 12 hours (scheduled), First dose on Gerri 04/17/21 at 1200, PACU & Post-op
D/C after extubation
[facility] Medication administered onsite niCARdipine (CARDENE) 50 mg/250 ml 0.9% NaCl infusion 04/17/2021 12:00:00 PM EDT mg/h Intravenous aborted PACU & Post-op, 0-15 mg/hr (0-75 mL/hr), Intravenous, Continuous, Starting on Gerri 04/17/21 at 1200, Until 04/19/21 at 1119, at 0-75 mL/hr [facility] Medication administered onsite Magnesium Chloride 0.10057 MEQ/ML / Pota ssium Chloride 0.0497 MEQ/ML [...] intake is 2 liters in 24 hours
[facility] Medication administered onsite propofol (DIPRIVAN) infusion 10 mg/mL [id number] 04/17/2021 12:00 :00 PM EDT ug/kg/min Intravenous [...] OFF 2 HOURS AFTER ADMISSION TO CVICU
[facility] Medication administered onsite Dexmedetomidine HCl 400 mcg in sodium chloride (NS) 0.9 % 10 0 mL infusion 04/17/2021 12:00:00 PM EDT ug/kg/h Intravenous complete d Post-op, 0.2-0.7 mcg/kg/hr 64.9 kg (3.245-11.3575 mL/hr, rounded to 3.2-11.4 mL/hr), Intravenous, Continuous, Starting on Gerri 04/17/21 at 1200, Until Gerri 04/17/21 at 1544, at 3.2- 11.4 mL/hr [facility] Medication administered onsite ondansetron (ZOFRAN) injection 4 mg [id number] 04/17/2021 11:12:1 7 AM EDT 4 mg Intravenous aborted 4 mg, In travenous, Every 6 hours PRN, nausea, vomiting, Starting on Gerri 04/17/21 at 1112, PACU & Post-op [facility] Medication administered onsite potassium chloride 20 mEq in 50 mL IVPB (CRITICAL CARE/PCU O NLY) [id number] 04/17/2021 11:12:17 AM EDT 20 meq Intravenous [...] over 1 hour through a central line
[facility] Medication administered onsite Patient on Coumadin during [...] Heart Valve
Target INR: 2 to 3 [facility] Medication administered onsite magnesium sulfate 1 g in dextrose 5% infusion (premix) 63564 -[id number] 04/17/2021 11:12:16 AM EDT 1 g Intravenous aborted 1 g, Intravenous, Administer over 30 Minutes
As needed, for serum Mg+ 1.9 to 2.1, Starting on Gerri 04/17/21 at 1112, PACU & Post-op
Run over 30 minutes through a central line
[facility] Medication administered onsite 2 ML Midazolam 1 MG/ML Injection midazolam (VERSED) in jection 1 mg midazolam (VERSED) injection 1 mg 04/17/2021 11:12:16 AM EDT 1 mg Intraveno us aborted 1 mg, Intravenous, E very 30 min PRN, anxiety, sedation, Starting on Gerri 04/17/21 at 1112, For 7 days, PACU & Post-op
Target RASS -2 to +1 DISCONTINUE AFTER EXTUBATION
[facility] Medication administered onsite HYDROmorphone (DILAUDID) injection 0.5 mg [id number] 04/17/2021 11:12:16 AM EDT 0.5 mg Intravenous aborted 0.5 mg, Intravenous, Every 5 min PRN, severe pain (7-10), Starting on Gerri 04/17/21 at 1112, For 7 days
Indicated for patients less than 75 years of age and not frail patients. FOR EXTUBATED PATIENTS ONLY. DISCONTINUE 6 HOURS POST EXTUBATION. Maximum dose 2 mg.
[facility] Medication administered onsite fentaNYL Citrate (PF) (SUBLIMAZE) injection 25 mcg [id number] 04/17/2021 11:12:15 AM EDT 25 ug Intravenous aborted 25 mcg, Intravenous, Every 10 min PRN, moderate pain (4-6), Starting on Gerri 04/17/21 at 1112, For 7 days, PACU & Post-op
Maximum 10 doses in a 24-hour period. DISCONTINUE 6 HOURS POST EXTUBATION
[facility] Medication administered onsite HYDROmorphone (DILAUDID) injection 0.5 mg [id number] 04/17/2021 11:12:15 AM EDT 0.5 mg Intravenous aborted 0.5 mg, Intravenous, Every 10 min PRN, severe pain (7-10), Starting on Gerri 04/17/21 at 1112, For 7 days, PACU & Post- op
Indicated for patients less than 75 years of age and not frail patients. FOR INTUBATED PATIENTS ONLY. DISCONTINUE POST EXTUBATION. Maximum dose 3 mg.
[facility] Medication administered onsite Acetaminophen 325 MG Oral [...] mg from all sources in 24 hours."
[facility] Medication administered onsite Metoprolol Tartrate 25 MG Oral Tablet me toprolol tartrate (LOPRESSOR) tablet 12.5 mg metoprolol tartrate (LOPRESSOR) tablet 12.5 mg 021 09:00:00 AM EDT 12.5 mg Oral aborted 12.5 mg, Oral, 2 times daily, First dose on Gerri 04/17/21 at 0900, Pre-op
Hold for HR < 60, or SBP <100
[facility] Medication administered onsite BUPIVACAINE 0.5% (Q-BALL) 330 mL drug or medication 04/17/2021 0 8:00:00 AM EDT 330 mL Topical active 330 mL, Topical, Continuous, Starting on Gerri 04/17/21 at 0800, Intra-op
Please indicate single or double lumen: Single Lumen [facility] Medication administered onsite heparin (porcine) injection 5,000 Units [id number] 04/17/20 06:00:00 AM EDT 5000 U Subcutaneous completed 5,000 Uni ts, Subcutaneous, Once, On Gerri 04/17/21 at 0600, For 1 dose, Pre-op
Once on admission. Hold for platelets < 90,000.
[facility] Medication administered onsite 2 % 04/16/2021 12:00:00 [...] DAILY DOSE = 4 FILMS SOLD: 03/10/2021 [facility] 10-200 mg 02/25/2021 12:00:00 AM EDT tablet 16 AFTER STOPPING BUPRENORPHINE, TAKE ONE TABLET BY MOUTH FOUR TIMES A DAY NEEDED FOR PAIN, MAXIMUM DAILY DOSE = 4 TABLETS AFTER STOPPING BUPRENORPHINE, TAKE ONE T ABLET BY MOUTH FOUR TIMES A DAY NEEDED FOR PAIN, MAXIMUM DAILY DOSE = 4 TABLETS SOLD: 02/25/2021 [facility] 20 mcg/hour 02/11/2021 12:00:00 AM EDT patch weekly 4 APPLY ONE PATCH TO THE SKIN ONCE WEEKLY MAXIMUM DAILY DOSE = 1/ 7 DAYS APPLY ONE PATCH TO THE SKIN ONCE WEEKLY MAXIMUM DAILY DOSE = 1/ 7 DAYS SOLD: 02/12/2021 [facility] 8-2 mg 02/10/2021 12:00:00 AM EDT film 112 DISSOLVE 4 FILMS UNDER TONGUE ONCE DAILY, MAXIMUM DAILY DOSE = 4 FILMS DISSOLVE 4 FILMS UNDER TONGUE ONCE DAILY, MAXIMUM DAILY DOSE = 4 FILMS SOLD: 02/10/2021 [facility] 10 mg 02/07/2021 12:00:00 AM EDT tablet 90 TAKE ONE TABLET BY MOUTH EVERY DAY TAKE ONE TABLET BY MOUTH EVERY DAY SOLD: 05/18/2021 [facility] 10 mg 02/07/2021 12:00:00 AM EDT tablet 90 TAKE ONE TABLET BY MOUTH EVERY DAY TAKE ONE TABLET BY MOUTH EVERY DAY SOLD: 02/14/2021 [facility] ezetimibe 10 MG Oral Tablet ezetimibe (ZETIA) 10 MG ta blet ezetimibe (ZETIA) 10 MG tablet 02/06/2021 12:00:00 AM EDT 10 mg Oral active Take 1 tablet (10 mg total) by mouth daily [facility] Furosemide 20 MG Oral Tablet furosemide (LASIX) 20 MG tablet furosemide (LASIX) 20 MG tablet 02/06/2021 12:00:00 AM EDT 20 mg Oral abort ed Take 1 tablet (20 mg total) by mouth daily [facility] 24 HR Nicotine 0.292 MG/HR Transdermal Patch nicotine (NICODERM CQ) 7 MG/24HR nicotine (NICODERM CQ) 7 MG/24HR 02/06/2021 12:00:00 AM EDT 1 {p atch} Transdermal aborted Place 1 patch on t he skin daily [facility] 20 mcg/hour 01/14/2021 12:00:00 AM EDT patch [...] 1 tablet (5 mg total) by mo ksh daily [facility] 100 mg 12/26/2020 12:00:00 AM EDT tablet [...] DAILY DOSE = 4 STRIPS SOLD: 12/17/2020 [facility] iopamidol (ISOVUE-370) 76 % [id number] 12/10/2020 01:37:13 PM EDT active As needed, Starting 12/10/20 at 1337, Intra-Procedu re [facility] Medication administered onsite NITROGLYCERIN 0.4 MG/ML IV SOLN [id number] 12/10/2020 12:43:30 PM EDT active As needed, Starting Tue 12/10 at 1243, Intra-Procedure [facility] Medication administered onsite 1 ML heparin sodium, porcine 1000 UNT/ML Injection hep shanti (porcine) injection heparin (porcine) injection 12/10/2020 12:33:21 PM EDT active As needed, Starting 12/10/20 at 1233, Intra-Procedure [facility] Medication administered onsite lidocaine 1 % injection [id number] 12/10/2020 12:29:18 PM EDT active As needed, Starting 12/10/20 at 1229, Intra-Procedure [facility] Medication administered onsite 2 ML Midazolam 1 MG/ML Injection midazolam (VERSED) in jection midazolam (VERSED) injection 12/10/2020 12:28:40 PM EDT active As needed, Starting 12/10/20 at 1228, Intra-Procedure [facility] Medication administered onsite fentaNYL Citrate (PF) (SUBLIMAZE) injection [id number] 12/10/2020 12:28:26 PM EDT active As neede d, Starting 12/10/20 at 1228, Intra-Procedure [facility] Medication administered onsite sodium chloride 0.9% (NS) infusion [id number] 12/10/2020 10:00:00 AM EDT 100 mL/h Intravenous active at 100 m L/hr, 100 mL/hr, Intravenous, Continuous, Starting Wed12/10/20 at 1000, Pre-op [facility] Medication administered onsite normal saline flush 0.9 % injection 3 mL [id number] 12/10/2020 10:00:00 AM EDT 3 mL Intravenous active 3 mL , Intravenous, Every 8 hours (scheduled), First dose on Wed12/10/20 at 1000, Pre-op
Rapid push positive pressure flushing shall be performed with a 10 cc normal saline syringe to check the PATENCY of a PIV site prior to any infusion therapy initiation unless resistance is met.
[facility] Medication administered onsite 40 mg 12/10/2020 12:00:00 AM EDT tablet 30 TAKE ONE TABLET BY MOUTH ONCE DAILY TAKE ONE TABLET BY MOUTH ONCE DAILY SOLD: 12/14/2020 [facility] Aspirin 81 MG Delayed Release Oral Tablet aspirin EC 8 1 MG EC tablet aspirin EC 81 MG EC tablet 12/09/2020 12:00:00 AM EDT 81 mg Oral ab orted Take 1 tablet (81 mg total) by mouth daily [facility] Furosemide 40 MG Oral Tablet furosemide (LASIX) 40 MG tablet furosemide (LASIX) 40 MG tablet 12/09/2020 12:00:00 AM EDT 40 mg Oral activ e Take 1 tablet (40 mg total) by mouth daily [facility] 100 mg 12/07/2020 12:00:00 AM EDT tablet 20 TAKE 1 TABLET BY MOUTH NEEDED FOR HEADACHE MAY REPEAT IN 2 HR X 1 IF NEED TAKE 1 TABLET BY MOUTH NEEDED FOR HEADACHE MAY REPEAT IN 2 HR X 1 IF NEED SOLD: 12/08/2020 [facility] 100 mg 12/07/2020 12:00:00 AM EDT tablet 20 TAKE 1 TABLET BY MOUTH NEEDED FOR HEADACHE MAY REPEAT IN 2 HR X 1 IF NEED TAKE 1 TABLET BY MOUTH NEEDED FOR HEADACHE MAY REPEAT IN 2 HR X 1 IF NEED SOLD: 01/20/2021 [facility] gabapentin 800 MG Oral Tablet GABAPENTIN 12/07/2020 [...] activ e Atorvastatin Calcium 80 MG eCW1 ([facility]) atorvastatin 80 MG Oral Tablet Atorvastatin Calcium 80 MG Atorvastatin Calcium 80 MG 12/06/2020 12:00:00 AM EDT 1.0 {tablet} activ e Atorvastatin Calcium 80 MG eCW1 ([facility]) atorvastatin 80 MG Oral Tablet Atorvastatin Calcium 80 MG Atorvastatin Calcium 80 MG 12/06/2020 12:00:00 AM EDT 1.0 {tablet} activ e Atorvastatin Calcium 80 MG eCW1 ([facility]) 12 HR Bupropion Hydrochloride 100 MG Ext ended Release Oral Tablet buPROPion HCl ER (SR) 100 MG buPROPion HCl ER (SR) 100 MG 12/06/2020 12:00:00 AM EDT 1.0 {tablet_in_the_morning} active buPROPio n HCl ER (SR) 100 MG eCW1 ([facility]) 12 HR Bupropion Hydrochloride 100 MG Ext ended Release Oral Tablet buPROPion HCl ER (SR) 100 MG buPROPion HCl ER (SR) 100 MG 12/06/2020 12:00:00 AM EDT 1.0 {tablet_in_the_morning} active buPROPio n HCl ER (SR) 100 MG eCW1 ([facility]) 12 HR Bupropion Hydrochloride 100 MG Ext ended Release Oral Tablet buPROPion HCl ER (SR) 100 MG buPROPion HCl ER (SR) 100 MG 12/06/2020 12:00:00 AM EDT 1.0 {tablet_in_the_morning} active buPROPio n HCl ER (SR) 100 MG eCW1 ([facility]) atorvastatin 80 MG Oral Tablet Atorvastatin Calcium 80 MG Atorvastatin Calcium 80 MG 12/06/2020 12:00:00 AM EDT 1.0 {tablet} activ e Atorvastatin Calcium 80 MG eCW1 ([facility]) atorvastatin 80 MG Oral Tablet Atorvastatin Calcium 80 MG Atorvastatin Calcium 80 MG 12/06/2020 12:00:00 AM EDT 1.0 {tablet} activ e Atorvastatin Calcium 80 MG eCW1 ([facility]) 12 HR Bupropion Hydrochloride 100 MG Ext ended Release Oral Tablet buPROPion HCl ER (SR) 100 MG buPROPion HCl ER (SR) 100 MG 12/06/2020 12:00:00 AM EDT 1.0 {tablet_in_the_morning} active buPROPio n HCl ER (SR) 100 MG eCW1 ([facility]) 12 HR Bupropion Hydrochloride 100 MG Ext ended Release Oral Tablet buPROPion (WELLBUTRIN SR) 100 MG 12 hr tablet buPROPion (WELLBUTRIN SR) 100 MG 12 hr tablet 12/06/2020 12:00:00 AM EDT aborted [facility] gabapentin 800 MG Oral Tablet gabapentin (NEURONTIN) 8 00 MG tablet gabapentin (NEURONTIN) 800 MG tablet 12/06/2020 12:00:00 AM EDT 800 mg Oral active Take 800 mg by mouth 3 (three) times a day [facility] atorvastatin 80 MG Oral Tablet atorvastatin (LIPITOR) 80 MG tablet atorvastatin (LIPITOR) 80 MG tablet 12/06/2020 12:00:00 AM EDT 80 mg Oral active Take 80 mg by mouth nightly [facility] Sumatriptan 100 MG Oral Tablet SUMAtriptan (IMITREX) 1 00 MG tablet SUMAtriptan (IMITREX) 100 MG tablet 12/06/2020 12:00:00 AM EDT 100 mg Oral active Take 100 mg by mouth once as needed (at onset of migraine. May repeat dose in 2 hours if needed. MDD : 2 tablets) [facility] albuterol (PROVENTIL HFA;VENTOLIN HFA) 108 (90 Base) M CG/ACT inhaler [id number] 12/06/2020 12:00:00 AM EDT 2 {puff} Inhalation active Inhale 2 puffs every 4 (four) hours as needed for wheezing [facility] 12 HR Bupropion Hydrochloride 100 MG Ext ended Release Oral Tablet buPROPion HCl ER (SR) 100 MG buPROPion HCl ER (SR) 100 MG 12/06/2020 12:00:00 AM EDT 1.0 {tablet_in_the_morning} active buPROPio n HCl ER (SR) 100 MG eCW1 ([facility]) atorvastatin 80 MG Oral Tablet Atorvastatin Calcium 80 MG Atorvastatin Calcium 80 MG 12/06/2020 12:00:00 AM EDT 1.0 {tablet} activ e Atorvastatin Calcium 80 MG eCW1 ([facility]) atorvastatin 80 MG Oral Tablet Atorvastatin Calcium 80 MG Atorvastatin Calcium 80 MG 12/06/2020 12:00:00 AM EDT 1.0 {tablet} activ e Atorvastatin Calcium 80 MG eCW1 ([facility]) 12 HR Bupropion Hydrochloride 100 MG Ext ended Release Oral Tablet BuPROPion HCl ER (SR) 100 MG BuPROPion HCl ER (SR) 100 MG 12/06/2020 12:00:00 AM EDT 1.0 {tablet_in_the_morning} active BuPROPio n HCl ER (SR) 100 MG eCW1 ([facility]) 12 HR Bupropion Hydrochloride 100 MG Ext ended Release Oral Tablet buPROPion HCl ER (SR) 100 MG buPROPion HCl ER (SR) 100 MG 12/06/2020 12:00:00 AM EDT 1.0 {tablet_in_the_morning} active buPROPio n HCl ER (SR) 100 MG eCW1 ([facility]) Amitriptyline Hydrochloride 100 MG Oral Tablet amitriptyline (ELAVIL) 100 MG tablet amitriptyline (ELAVIL) 100 MG tablet 11/25/2020 12:00:00 AM EDT 100 mg Oral active Take 100 mg by mouth nightly [facility] 20 mcg/hour 11/21/2020 12:00:00 AM EST patch [...] the skin every 7 days on Wednesday [facility] 8-2 mg 11/19/2020 12:00:00 AM EST film [...] [facility] SPIRIVA RESPIMAT 2.5 MCG/ACT AERS [id number] 11/06/2020 12:00:00 AM EST 2 {puff} Inhalation active Inhale 2 puffs daily [facility] 28 ACTUAT Fluticasone propionate 0.1 MG/ ACTUAT Dry Powder Inhaler [Flovent] FLOVENT DISKUS 100 MCG/BLIST AEPB FLOVENT DISKUS 100 MCG/BLIST AEPB 11/06/2020 12:00:00 AM EST 1 {puff} Inhalation active Inhale 1 puff 2 (two) times a day [facility] 90 mcg/actuation 11/06/2020 12:00:00 AM EST HFA [...] active Flovent Disku s 100 MCG/BLIST eCW1 ([facility]) Aspirin 81 MG Delayed Release Oral Tablet Aspirin 81 MG 11/05/2020 12:00:00 AM EST 1.0 {tablet} active Aspirin 81 MG eCW1 ([facility]) Aspirin 81 MG Delayed Release Oral Tablet Aspirin 81 MG 11/05/2020 12:00:00 AM EST 1.0 {tablet} active Aspirin 81 MG eCW1 ([facility]) Aspirin 81 MG Delayed Release Oral Tablet Aspirin 81 MG 11/05/2020 12:00:00 AM EST 1.0 {tablet} active Aspirin 81 MG eCW1 ([facility]) Aspirin 81 MG Delayed Release Oral Tablet Aspirin 81 MG 11/05/2020 12:00:00 AM EST 1.0 {tablet} active Aspirin 81 MG eCW1 ([facility]) Aspirin 81 MG Delayed Release Oral Tablet Aspirin 81 MG 11/05/2020 12:00:00 AM EST 1.0 {tablet} active Aspirin 81 MG eCW1 ([facility]) 28 ACTUAT Fluticasone propionate 0.1 MG/ ACTUAT Dry Powder Inhaler [Flovent] Flovent Diskus 100 MCG/BLIST Flovent Diskus 100 MCG/BLIST 11/05/2020 12:00:00 AM EST 1.0 {puff} active Flovent Disku s 100 MCG/BLIST eCW1 ([facility]) 28 ACTUAT tiotropium 0.0025 MG/ACTUAT Me tered Dose Inhaler [Spiriva] Spiriva Respimat 2.5 MCG/ACT Spiriva Respimat 2.5 MCG/ACT 11/05/2020 12:00:00 AM EST 2.0 {puffs} active Spiriva Respimat 2.5 MCG/ACT eCW1 ([facility]) 28 ACTUAT tiotropium 0.0025 MG/ACTUAT Me tered Dose Inhaler [Spiriva] Spiriva Respimat 2.5 MCG/ACT Spiriva Respimat 2.5 MCG/ACT 11/05/2020 12:00:00 AM EST 2.0 {puffs} active Spiriva Respimat 2.5 MCG/ACT eCW1 ([facility]) 28 ACTUAT Fluticasone propionate 0.1 MG/ ACTUAT Dry Powder Inhaler [Flovent] Flovent Diskus 100 MCG/BLIST Flovent Diskus 100 MCG/BLIST 11/05/2020 12:00:00 AM EST 1.0 {puff} active Flovent Disku s 100 MCG/BLIST eCW1 ([facility]) Aspirin 81 MG Delayed Release Oral Tablet Aspirin 81 MG 11/05/2020 12:00:00 AM EST 1.0 {tablet} active Aspirin 81 MG eCW1 ([facility]) Aspirin 81 MG Delayed Release Oral Tablet Aspirin 81 MG 11/05/2020 12:00:00 AM EST 1.0 {tablet} active Aspirin 81 MG eCW1 ([facility]) Aspirin 81 MG Delayed Release Oral Tablet Aspirin 81 MG 11/05/2020 12:00:00 AM EST 1.0 {tablet} active Aspirin 81 MG eCW1 ([facility]) 28 ACTUAT tiotropium 0.0025 MG/ACTUAT Me tered Dose Inhaler [Spiriva] Spiriva Respimat 2.5 MCG/ACT Spiriva Respimat 2.5 MCG/ACT 11/05/2020 12:00:00 AM EST 2.0 {puffs} active Spiriva Respimat 2.5 MCG/ACT eCW1 ([facility]) 28 ACTUAT tiotropium 0.0025 MG/ACTUAT Me tered Dose Inhaler [Spiriva] Spiriva Respimat 2.5 MCG/ACT Spiriva Respimat 2.5 MCG/ACT 11/05/2020 12:00:00 AM EST 2.0 {puffs} active Spiriva Respimat 2.5 MCG/ACT eCW1 ([facility]) 28 ACTUAT Fluticasone propionate 0.1 MG/ ACTUAT Dry Powder Inhaler [Flovent] Flovent Diskus 100 MCG/BLIST Flovent Diskus 100 MCG/BLIST 11/05/2020 12:00:00 AM EST 1.0 {puff} active Flovent Disku s 100 MCG/BLIST eCW1 ([facility]) 20 mcg/hour 10/23/2020 12:00:00 AM EST patch [...] mouth every 8 (eight) hours as needed [facility] Hydrocodone Bitartrate 10 MG / Ibuprofen 200 MG Oral Tablet HYDROcodone- Ibuprofen 10-200 MG TABS HYDROcodone-Ibuprofen 10-200 MG TABS 1 {tbl} Oral aborted Take 1 tablet by mouth 4 (four) times a day as needed (for pain) [facility] Insurance Providers Payer name Policy type / Coverage type Policy ID Covered constitution party ID Covered constitution party's relationship to pedro Policy Pedro Plan Information [facility] [employer] [facility] () Workers Compensation [id number] Self [id number] [facility] Part B [id number] Self [id number] [facility] [employer] [facility] () Workers Compensation [id number] Self [id number] [employer]) () Workers Compensation [id number] Self [id number] [facility] () Workers Compensation [id number] Self 6 [id number] MEDICARE [id number] A MEDICARE [id number] Eugenia [id number] MEDICARE [id number] MEDICARE [id number] Eugenia [id number] HUMANA MEDICARE [id number] Eugenia [id number] HUMANA [id number] xxxxxxxxx [id number] HUMANA [id number] Eugenia [id number] HUMANA [id number] Eugenia [id number] HUMANA MEDICARE [id number] Eugenia [id number] HUMANA MEDICARE [id number] xxxxxxxxx [phone] INSURANCE COVID-19 COVID Eugenia C OVID INSURANCE COVID-19 COVID Eugenia C OVID INSURANCE COVID-19 [id number] xOVID 2 [id number] INSURANCE COVID-19 [id number] xOVID 2 [id number] INSURANCE COVID-19 COVID Eugenia C OVID INSURANCE COVID-19 COVID Eugenia C OVID ANSI-Medicare Part B [id number] ANSI-Medicare Part B [id number] ANSI-Medicare Part B [id number] ANSI-Medicare Part B [id number] ANSI-Medicare Part B [id number] ANSI-Medicare Part B [id number] ANSI-Medicare Part B [id number] ANSI-Medicare Part B [id number] ANSI-Medicare Part B [id number] ANSI-Medicare Part B [id number] ANSI-Medicare Part B [id number] MEDICARE C [id number] S [id number] A HUMANA GOLD [id number] SP [id number] Medicare Medicare Primary [id number] Self HUMANA GOLD [id number] SP [id number] MEDICARE [id number] SP [id number] A HUMANA PPO [id number] SP [id number] MEDICARE [id number] SP [id number] [facility]MERLY [facility] INSURANCE FUND [id number] SP [id number] ANSI-Commercial [id number] ANSI-Medicare Part B [id number] ANSI-Commercial [id number] ANSI-Medicare Part B [id number] ANSI-Medicare Part B [id number] ANSI-Commercial [id number] [place] [id number] Self 3 [id number] ANSI-Commercial [id number] ANSI-Medicare Part B [id number] ANSI-Medicare Part B [id number] ANSI-Medicare Part B [id number] ANSI-Medicare Part B [id number] ANSI-Medicare Part B [id number] ANSI-Medicare Part B [id number] ANSI-Medicare Part B [id number] ANSI-Medicare Part B [id number] Problems, Conditions, and Diagnoses Code Display Name Description Problem Type Effective Dates Data Source(s) Z95.0 Presence of cardiac pacemaker Presence of cardiac pace maker Diagnosis 04/28/2021 02:44:50 PM EDT [facility] R09.89 Other specified symptoms and signs involving the circulatory and respiratory systems Other specified symptoms and signs invol Diagnosis 04/28/2021 02:44:50 PM EDT [facility] F17.200 Nicotine dependence, unspecified, uncomp licated Nicotine dependence, unspecified, uncomp Diagnosis 04/28/2021 02:44:50 PM EDT [facility] E78.00 Pure hypercholesterolemia, unspecified P ure hypercholesterolemia, unspecified Diagnosis 04/28/2021 02:44:50 PM EDT [facility] Z95.2 Presence of prosthetic heart valve Presence of p rosthetic heart valve Diagnosis 04/28/2021 02:44:[address] 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 Rheumatic mitral stenosis with insuffici Diagnosis 01/13/2021 01:57:32 PM EDT [facility] R06.02 Shortness of breath Shortness of breath Diagnosis 0 01/06/2021 02:29:51 PM EDT [facility] Z95.2 [id number] H/O mitral valve replacement with mecha nical valve Problem 06/19/2021 12:00:00 AM EDT eCW ([facility]) I48.3 [id number] Typical atrial flutter Problem 06/19/2021 12 :00:00 AM EDT eCW1 ([facility]) Z95.0 [id number] Pacemaker Problem 06/19/2021 12:00:00 AM ED T eCW1 ([facility]) Z95.0 Permanent cardiac pacemaker Permanent cardiac pacemake r [id number] 04/28/2021 12:00:00 AM EDT [facility] Z95.2 Mitral valve replacement Mitral valve replacement 6457 200004/26/2021 12:00:00 AM EDT [facility] I05.1 Rheumatic mitral regurgitation Rheumatic mitral regurg itation [id number] 12/09/2020 12:00:00 AM EDT [facility] R09.89 Right carotid bruit Right carotid bruit [id number] 0 12/09/2020 12:00:00 AM EDT [facility] F17.200 Smoker Smoker [id number] 12/09/2020 12:00:00 AM ED T [facility] E78.00 Hypercholesterolemia Hypercholesterolemia [id number] 12/09/2020 12:00:00 AM EDT [facility] I73.9 Peripheral vascular disease Peripheral vascular diseas e [id number] 12/09/2020 12:00:00 AM EDT [facility] R06.02 Shortness of breath Shortness of breath [id number] 0 12/09/2020 12:00:00 AM EDT [facility] 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 Rheumatic mitral stenosis with insufficiency [id number] 12/09/2020 12:00:00 AM EDT [facility] N20.0 [id number] Kidney stones Problem 12/06/2020 12:00:00 AM EDT eCW1 ([facility]) E78.5 [id number] Acquired hyperlipoproteinemia Problem 2020 12:00:00 AM EDT eCW1 ([facility]) I05.2 [id number] Mitral stenosis with insufficiency, rheum atic Problem 12/06/2020 12:00:00 AM EDT eCW1 ([facility]) I73.9 [id number] Claudication of both lower extremities Pr oblem 11/05/2020 12:00:00 AM EST eCW1 ([facility]) Z00.00 [id number] Medicare annual wellness visit, subsequen t Problem 11/05/2020 12:00:00 AM EST eCW1 ([facility]) I73.9 Peripheral vascular disease PAD (peripheral artery dis ease) Problem 11/05/2020 12:00:00 AM EST eCW1 ([facility]) Surgeries/Procedures Procedure Description Date Indications Data Source(s) ECG ROUTINE ECG W/LEAST 12 LDS W/I&R 06/19/2021 12:00: 00 AM EDT eCW1 ([facility]) POCT AMB EKG <td>POCT AMB EKG</td><td>[place]</td><td>04/28/2021 3:53 PM EDT</td><td> Mitral valve replacement</td><td> </td> 04/28/2021 03:53:00 PM EDT Mitral valve replacement [facility] Mitral valve replacement XR CHEST PORTABLE <td>XR CHEST PORTABLE</td><t d>Pending Discharge</td><td>04/23/2021 5:03 PM EDT</td><td></td><td> </td> 04/23/2021 05:03:06 PM EDT [facility] XR CHEST PA AND LATERAL <td>XR CHEST PA AND LATERAL</td><td>Timed</td><td>04/23/2021 1:39 PM EDT</td><td></td><td> </td> 04/23/2021 01:39:13 PM EDT [facility] PROTHROMBIN TIME <td>PROTIME-INR</td><td>Rout ine</td><td>04/23/2021 12:12 PM EDT</td><td></td><td> </td> 04/23/2021 12:12:00 PM EDT [facility] BLOOD COUNT COMPLETE AUTOMATED <td>CBC</td><td>Timed</ td><td>04/23/2021 12:12 PM EDT</td><td></td><td> </td> 04/23/2021 12:12:00 PM EDT [facility] MAGNESIUM <td>MAGNESIUM</td><td>Timed< /td><td>04/23/2021 12:12 PM EDT</td><td></td><td> </td> 04/23/2021 12:12:00 PM EDT [facility] BASIC METABOLIC PANEL CALCIUM TOTAL <td>BASIC METABOLI C PANEL</td><td>Timed</td><td>04/23/2021 12:12 PM EDT</td><td></td><td> </td> 04/23/2021 12:12:00 PM EDT [facility] XR CHEST PA AND LATERAL <td>XR CHEST PA AND LATERAL</td><td>Routine</td><td>04/23/2021 8:01 AM EDT</td><td></td><td> </td> 04/23/2021 08:01:02 AM EDT [facility] ECG ROUTINE ECG W/LEAST 12 LDS TRCG ONLY W/O I&R <td>E CG 12- LEAD</td><td>Routine</td><td>04/23/2021 5:45 AM EDT</td><td></td><td></td> 04/23/2021 05:45:[address] [facility] XR CHEST PORTABLE <td>XR CHEST PORTABLE</td><t d>STAT</td><td>04/22/2021 6:39 PM EDT</td><td></td><td> </td> 04/22/2021 06:39:00 PM EDT [facility] FLUOROSCOPY SPX <1 HOUR PHYSICIAN TIME <td>XR FLUORO P ACEMAKER INSERT</td><td>STAT</td><td>04/22/2021 6:10 PM EDT</td><td></td><td> </td> 04/22/2021 06:10:22 PM EDT [facility] INSERTION, CARDIAC PACEMAKER, BIVENTRICULAR <td>INSERT ION, CARDIAC PACEMAKER, BIVENTRICULAR</td><td></td><td>04/22/2021 5:13 PM EDT</td><td> COMPLETE HEART BLOCK</td><td></td> 04/22/2021 05:13:00 PM EDT - 04/22/2021 06:45:00 PM EDT [facility] BLOOD TYPING ABO <td>TYPE AND SCREEN</td><td> Routine</td><td>04/22/2021 4:09 PM EDT</td><td></td><td> </td> 04/22/2021 04:09:00 PM EDT [facility] COVID/FLU AB/RSV PCR <td>COVID/FLU AB/RSV PCR</td ><td>STAT</td><td>04/22/2021 1:55 PM EDT</td><td></td><td> </td> 04/22/2021 01:55:00 PM EDT [facility] POTASSIUM SERUM PLASMA/WHOLE BLOOD <td>POTASSIUM</td>< td>STAT</td><td>04/22/2021 8:51 AM EDT</td><td></td><td> </td> 04/22/2021 08:51:00 AM EDT [facility] XR CHEST PORTABLE <td>XR CHEST PORTABLE</td><t d>Timed</td><td>04/22/2021 7:05 AM EDT</td><td></td><td> </td> 04/22/2021 07:05:10 AM EDT [facility] BLOOD COUNT COMPLETE AUTOMATED <td>CBC</td><td>Routine </td><td>04/22/2021 3:16 AM EDT</td><td></td><td> </td> 04/22/2021 03:16:00 AM EDT [facility] MAGNESIUM <td>MAGNESIUM</td><td>Routin e</td><td>04/22/2021 3:16 AM EDT</td><td></td><td> </td> 04/22/2021 03:16:00 AM EDT [facility] BASIC METABOLIC PANEL CALCIUM TOTAL <td>BASIC METABOLI C PANEL</td><td>Routine</td><td>04/22/2021 3:16 AM EDT</td><td></td><td> </td> 04/22/2021 03:16:00 AM EDT [facility] PROTHROMBIN TIME <td>PROTIME-INR</td><td>Rout ine</td><td>04/22/2021 3:09 AM EDT</td><td></td><td> </td> 04/22/2021 03:09:00 AM EDT [facility] PROTHROMBIN TIME <td>PROTIME-INR</td><td>Rout ine</td><td>04/21/2021 2:44 AM EDT</td><td></td><td> </td> 04/21/2021 02:44:00 AM EDT [facility] BLOOD COUNT COMPLETE AUTOMATED <td>CBC</td><td>Routine </td><td>04/21/2021 2:44 AM EDT</td><td></td><td> </td> 04/21/2021 02:44:00 AM EDT [facility] BASIC METABOLIC PANEL CALCIUM TOTAL <td>BASIC METABOLI C PANEL</td><td>Routine</td><td>04/21/2021 2:44 AM EDT</td><td></td><td> </td> 04/21/2021 02:44:00 AM EDT [facility] XR CHEST PORTABLE <td>XR CHEST PORTABLE</td><t d>Timed</td><td>04/20/2021 11:57 AM EDT</td><td></td><td> </td> 04/20/2021 11:57:44 AM EDT [facility] POTASSIUM SERUM PLASMA/WHOLE BLOOD <td>POTASSIUM</td><td>Routine</td><td>04/20/2021 11:12 AM EDT</td><td></td><td> </td> 04/20/2021 11:12:00 AM EDT [facility] GLUC BLD GLUC MNTR DEV CLEARED FDA SPEC HOME USE <td>P OCT GLUCOSE</td><td>Routine</td><td>04/20/2021 7:53 AM EDT</td><td></td><td> </td> 04/20/2021 07:53:00 AM EDT [facility] POTASSIUM SERUM PLASMA/WHOLE BLOOD <td>POTASSIUM</td>< td>STAT</td><td>04/20/2021 7:29 AM EDT</td><td></td><td> </td> 04/20/2021 07:29:00 AM EDT [facility] HEPATIC FUNCTION PANEL <td>HEPATIC FUNCTION PANEL</ td><td>Add- On</td><td>04/20/2021 7:29 AM EDT</td><td></td><td> </td> 04/20/2021 07:29:00 AM EDT [facility] PROTHROMBIN TIME <td>PROTIME-INR</td><td>Time d</td><td>04/20/2021 2:26 AM EDT</td><td></td><td> </td> 04/20/2021 02:26:00 AM EDT [facility] BLOOD COUNT COMPLETE AUTOMATED <td>CBC</td><td>Timed</ td><td>04/20/2021 2:26 AM EDT</td><td></td><td> </td> 04/20/2021 02:26:00 AM EDT [facility] MAGNESIUM <td>MAGNESIUM</td><td>Timed< /td><td>04/20/2021 2:26 AM EDT</td><td></td><td> </td> 04/20/2021 02:26:00 AM EDT [facility] CALCIUM IONIZED <td>CALCIUM, IONIZED</td><td >Timed</td><td>04/20/2021 2:26 AM EDT</td><td></td><td> </td> 04/20/2021 02:26:00 AM EDT [facility] BASIC METABOLIC PANEL CALCIUM TOTAL <td>BASIC METABOLI C PANEL</td><td>Timed</td><td>04/20/2021 2:26 AM EDT</td><td></td><td> </td> 04/20/2021 02:26:00 AM EDT [facility] GLUC BLD GLUC MNTR DEV CLEARED FDA SPEC HOME USE <td>P OCT GLUCOSE</td><td>Routine</td><td>04/19/2021 5:56 PM EDT</td><td></td><td> </td> 04/19/2021 05:56:00 PM EDT [facility] XR CHEST PORTABLE <td>XR CHEST PORTABLE</td><t d>Timed</td><td>04/19/2021 1:24 PM EDT</td><td></td><td> </td> 04/19/2021 01:24:15 PM EDT [facility] GLUC BLD GLUC MNTR DEV CLEARED FDA SPEC HOME USE <td>P OCT GLUCOSE</td><td>Routine</td><td>04/19/2021 1:00 PM EDT</td><td></td><td> </td> 04/19/2021 01:00:00 PM EDT [facility] GLUC BLD GLUC MNTR DEV CLEARED FDA SPEC HOME USE <td>P OCT GLUCOSE</td><td>Routine</td><td>04/19/2021 8:24 AM EDT</td><td></td><td> </td> 04/19/2021 08:24:00 AM EDT [facility] BASIC METABOLIC PANEL CALCIUM TOTAL <td>BASIC METABOLI C PANEL</td><td>Timed</td><td>04/19/2021 2:18 AM EDT</td><td></td><td> </td> 04/19/2021 02:18:00 AM EDT [facility] PROTHROMBIN TIME <td>PROTIME-INR</td><td>Time d</td><td>04/19/2021 2:18 AM EDT</td><td></td><td> </td> 04/19/2021 02:18:00 AM EDT [facility] BLOOD COUNT COMPLETE AUTOMATED <td>CBC</td><td>Timed</ td><td>04/19/2021 2:18 AM EDT</td><td></td><td> </td> 04/19/2021 02:18:00 AM EDT [facility] MAGNESIUM <td>MAGNESIUM</td><td>Timed< /td><td>04/19/2021 2:18 AM EDT</td><td></td><td> </td> 04/19/2021 02:18:00 AM EDT [facility] CALCIUM IONIZED <td>CALCIUM, IONIZED</td><td >Timed</td><td>04/19/2021 2:18 AM EDT</td><td></td><td> </td> 04/19/2021 02:18:00 AM EDT [facility] GLUC BLD GLUC MNTR DEV CLEARED FDA SPEC HOME USE <td>P OCT GLUCOSE</td><td>Routine</td><td>04/18/2021 6:40 PM EDT</td><td></td><td> </td> 04/18/2021 06:40:00 PM EDT [facility] GLUC BLD GLUC MNTR DEV CLEARED FDA SPEC HOME USE <td>P OCT GLUCOSE</td><td>Routine</td><td>04/18/2021 12:40 PM EDT</td><td></td><td> </td> 04/18/2021 12:40:00 PM EDT [facility] GLUC BLD GLUC MNTR DEV CLEARED FDA SPEC HOME USE <td>P OCT GLUCOSE</td><td>Routine</td><td>04/18/2021 9:44 AM EDT</td><td></td><td> </td> 04/18/2021 09:44:00 AM EDT [facility] POTASSIUM SERUM PLASMA/WHOLE BLOOD <td>POTASSIUM</td><td>Routine</td><td>04/18/2021 9:40 AM EDT</td><td></td><td> </td> 04/18/2021 09:40:00 AM EDT [facility] MAGNESIUM <td>MAGNESIUM</td><td>Routin e</td><td>04/18/2021 9:40 AM EDT</td><td></td><td> </td> 04/18/2021 09:40:00 AM EDT [facility] GLUC BLD GLUC MNTR DEV CLEARED FDA SPEC HOME USE <td>P OCT GLUCOSE</td><td>Routine</td><td>04/18/2021 6:07 AM EDT</td><td></td><td> </td> 04/18/2021 06:07:00 AM EDT [facility] GLUC BLD GLUC MNTR DEV CLEARED FDA SPEC HOME USE <td>P OCT GLUCOSE</td><td>Routine</td><td>04/18/2021 3:04 AM EDT</td><td></td><td> </td> 04/18/2021 03:04:00 AM EDT [facility] PROTHROMBIN TIME <td>PROTIME-INR</td><td>Time d</td><td>04/18/2021 3:00 AM EDT</td><td></td><td> </td> 04/18/2021 03:00:00 AM EDT [facility] BLOOD COUNT COMPLETE AUTOMATED <td>CBC</td><td>Timed</ td><td>04/18/2021 3:00 AM EDT</td><td></td><td> </td> 04/18/2021 03:00:00 AM EDT [facility] MAGNESIUM <td>MAGNESIUM</td><td>Timed< /td><td>04/18/2021 3:00 AM EDT</td><td></td><td> </td> 04/18/2021 03:00:00 AM EDT [facility] CALCIUM IONIZED <td>CALCIUM, IONIZED</td><td >Timed</td><td>04/18/2021 3:00 AM EDT</td><td></td><td> </td> 04/18/2021 03:00:00 AM EDT [facility] BASIC METABOLIC PANEL CALCIUM TOTAL <td>BASIC METABOLI C PANEL</td><td>Timed</td><td>04/18/2021 3:00 AM EDT</td><td></td><td> </td> 04/18/2021 03:00:00 AM EDT [facility] GLUC BLD GLUC MNTR DEV CLEARED FDA SPEC HOME USE <td>P OCT GLUCOSE</td><td>Routine</td><td>04/18/2021 12:29 AM EDT</td><td></td><td> </td> 04/18/2021 12:29:00 AM EDT [facility] GLUC BLD GLUC MNTR DEV CLEARED FDA SPEC HOME USE <td>P OCT GLUCOSE</td><td>Routine</td><td>04/17/2021 10:02 PM EDT</td><td></td><td> </td> 04/17/2021 10:02:00 PM EDT [facility] BLOOD COUNT COMPLETE AUTOMATED <td>CBC</td><td>STAT</t d><td>04/17/2021 9:03 PM EDT</td><td></td><td> </td> 04/17/2021 09:03:00 PM EDT [facility] POTASSIUM SERUM PLASMA/WHOLE BLOOD <td>POTASSIUM</td><td>Routine</td><td>04/17/2021 9:03 PM EDT</td><td></td><td> </td> 04/17/2021 09:03:00 PM EDT [facility] GLUC BLD GLUC MNTR DEV CLEARED FDA SPEC HOME USE <td>P OCT GLUCOSE</td><td>Routine</td><td>04/17/2021 7:57 PM EDT</td><td></td><td> </td> 04/17/2021 07:57:00 PM EDT [facility] GLUC BLD GLUC MNTR DEV CLEARED FDA SPEC HOME USE <td>P OCT GLUCOSE</td><td>Routine</td><td>04/17/2021 5:57 PM EDT</td><td></td><td> </td> 04/17/2021 05:57:00 PM EDT [facility] POC ARTERIAL BLOOD GAS <td>POC ARTERIAL BLOOD GAS</td><td>Routine</td><td>04/17/2021 5:18 PM EDT</td><td></td><td> </td> 04/17/2021 05:18:00 PM EDT [facility] GLUC BLD GLUC MNTR DEV CLEARED FDA SPEC HOME USE <td>P OCT GLUCOSE</td><td>Routine</td><td>04/17/2021 4:00 PM EDT</td><td></td><td> </td> 04/17/2021 04:00:00 PM EDT [facility] POTASSIUM SERUM PLASMA/WHOLE BLOOD <td>POTASSIUM</td>< td>STAT</td><td>04/17/2021 3:58 PM EDT</td><td></td><td> </td> 04/17/2021 03:58:00 PM EDT [facility] GLUC BLD GLUC MNTR DEV CLEARED FDA SPEC HOME USE <td>P OCT GLUCOSE</td><td>Routine</td><td>04/17/2021 2:28 PM EDT</td><td></td><td> </td> 04/17/2021 02:28:00 PM EDT [facility] GLUC BLD GLUC MNTR DEV CLEARED FDA SPEC HOME USE <td>P OCT GLUCOSE</td><td>Routine</td><td>04/17/2021 1:31 PM EDT</td><td></td><td> </td> 04/17/2021 01:31:00 PM EDT [facility] GLUC BLD GLUC MNTR DEV CLEARED FDA SPEC HOME USE <td>P OCT GLUCOSE</td><td>Routine</td><td>04/17/2021 12:30 PM EDT</td><td></td><td> </td> 04/17/2021 12:30:00 PM EDT [facility] POC CALCIUM BG <td>POC CALCIUM BG</td><td>R outine</td><td>04/17/2021 11:58 AM EDT</td><td></td><td> </td> 04/17/2021 11:58:00 AM EDT [facility] POC ARTERIAL BLOOD GAS <td>POC ARTERIAL BLOOD GAS</td><td>Routine</td><td>04/17/2021 11:52 AM EDT</td><td></td><td> </td> 04/17/2021 11:52:00 AM EDT [facility] XR CHEST PORTABLE <td>XR CHEST PORTABLE</td><t d>STAT</td><td>04/17/2021 11:45 AM EDT</td><td></td><td> </td> 04/17/2021 11:45:26 AM EDT [facility] ECG ROUTINE ECG W/LEAST 12 LDS TRCG ONLY W/O I&R <td>E CG 12- LEAD</td><td>Routine</td><td>04/17/2021 11:19 AM EDT</td><td></td><td></td> 04/17/2021 11:19:[address] [facility] GLUC BLD GLUC MNTR DEV CLEARED FDA SPEC HOME USE <td>P OCT GLUCOSE</td><td>Routine</td><td>04/17/2021 11:18 AM EDT</td><td></td><td> </td> 04/17/2021 11:18:00 AM EDT [facility] BLOOD COUNT COMPLETE AUTOMATED <td>CBC</td><td>STAT</t d><td>04/17/2021 11:16 AM EDT</td><td></td><td> </td> 04/17/2021 11:16:00 AM EDT [facility] MAGNESIUM <td>MAGNESIUM</td><td>STAT</ td><td>04/17/2021 11:16 AM EDT</td><td></td><td> </td> 04/17/2021 11:16:00 AM EDT [facility] CALCIUM IONIZED <td>CALCIUM, IONIZED</td><td >STAT</td><td>04/17/2021 11:16 AM EDT</td><td></td><td> </td> 04/17/2021 11:16:00 AM EDT [facility] BASIC METABOLIC PANEL CALCIUM TOTAL <td>BASIC METABOLI C PANEL</td><td>STAT</td><td>04/17/2021 11:16 AM EDT</td><td></td><td> </td> 04/17/2021 11:16:00 AM EDT [facility] POC ARTERIAL BLOOD GAS W LYTES <td>POC ARTERIAL BLOOD GAS W LYTES</td><td>Routine</td><td>04/17/2021 10:35 AM EDT</td><td></td><td> </td> 04/17/2021 10:35:00 AM EDT [facility] POC ACT <td>POC ACT</td><td>Routine< /td><td>04/17/2021 10:34 AM EDT</td><td></td><td> </td> 04/17/2021 10:34:00 AM EDT [facility] THROMBOPLASTIN TIME PARTIAL PLASMA/WHOLE BLOOD <td>APTT</td><td>Routine</td><td>04/17/2021 10:32 AM EDT</td><td></td><td> </td> 04/17/2021 10:32:00 AM EDT [facility] PROTHROMBIN TIME <td>PROTIME-INR</td><td>Rout ine</td><td>04/17/2021 10:32 AM EDT</td><td></td><td> </td> 04/17/2021 10:32:00 AM EDT [facility] POC ARTERIAL BLOOD GAS W LYTES <td>POC ARTERIAL BLOOD GAS W LYTES</td><td>Routine</td><td>04/17/2021 9:45 AM EDT</td><td></td><td> </td> 04/17/2021 09:45:00 AM EDT [facility] POC VENOUS BLOOD GAS W LYTES <td>POC VENOUS BLOOD GAS W LYTES</td><td>Routine</td><td>04/17/2021 9:41 AM EDT</td><td></td><td> </td> 04/17/2021 09:41:00 AM EDT [facility] POC ACT <td>POC ACT</td><td>Routine< /td><td>04/17/2021 9:40 AM EDT</td><td></td><td> </td> 04/17/2021 09:40:00 AM EDT [facility] POC VENOUS BLOOD GAS W LYTES <td>POC VENOUS BLOOD GAS W LYTES</td><td>Routine</td><td>04/17/2021 9:12 AM EDT</td><td></td><td> </td> 04/17/2021 09:12:00 AM EDT [facility] POC ACT <td>POC ACT</td><td>Routine< /td><td>04/17/2021 9:11 AM EDT</td><td></td><td> </td> 04/17/2021 09:11:00 AM EDT [facility] POC ARTERIAL BLOOD GAS W LYTES <td>POC ARTERIAL BLOOD GAS W LYTES</td><td>Routine</td><td>04/17/2021 8:44 AM EDT</td><td></td><td> </td> 04/17/2021 08:44:00 AM EDT [facility] POC ACT <td>POC ACT</td><td>Routine< /td><td>04/17/2021 8:43 AM EDT</td><td></td><td> </td> 04/17/2021 08:43:00 AM EDT [facility] LEVEL IV SURG PATHOLOGY GROSS&MICROSCOPIC EXAM <td>[facility] HISTOLOGY</td><td>Routine</td><td>04/17/2021 8:19 AM EDT</td><td></td><td> </td> 04/17/2021 08:19:00 AM EDT [facility] POC ARTERIAL BLOOD GAS W LYTES <td>POC ARTERIAL BLOOD GAS W LYTES</td><td>Routine</td><td>04/17/2021 7:45 AM EDT</td><td></td><td> </td> 04/17/2021 07:45:00 AM EDT [facility] POC ACT <td>POC ACT</td><td>Routine< /td><td>04/17/2021 7:44 AM EDT</td><td></td><td> </td> 04/17/2021 07:44:00 AM EDT [facility] REPAIR OR REPLACEMENT, MITRAL VALVE, MIN IMALLY INVASIVE, RIGHT THORACOTOMY APPROACH, USING HEARTPORT TECHNIQUE <td>REPAIR OR REPLACEMENT, MITRAL VALVE, MINIMALLY INVASIVE, RIGHT THORACOTOMY APPROACH, USING HEARTPORT TECHNIQUE</td><td></td><td>04/17/2021 7:24 AM EDT</td><td> Rheumatic mitral regurgitation</td><td></td> 04/17/2021 07:24:00 AM EDT - 04/17/2021 11:55:00 AM EDT Rheumatic mitral regurgitation [facility] Rheumatic mitral regurgitation ECG TRANSESOPHAG R-T 2D W/PRB IMG ACQUISJ I&R <td>ECHO CARDIOGRAM TRANSESOPHAGEAL</td><td>Routine</td><td>04/17/2021 7:21 AM EDT</td><td></td><td> </td> 04/17/2021 07:21:51 AM EDT [facility] GLUC BLD GLUC MNTR DEV CLEARED FDA SPEC HOME USE <td>P OCT GLUCOSE</td><td>Routine</td><td>04/17/2021 6:27 AM EDT</td><td></td><td> </td> 04/17/2021 06:27:00 AM EDT [facility] BLOOD TYPING ABO <td>PREPARE RBC</td><td>Rout ine</td><td>04/17/2021 12:01 AM EDT</td><td></td><td> </td> 04/17/2021 12:01:00 AM EDT [facility] ECG ROUTINE ECG W/LEAST 12 LDS TRCG ONLY W/O I&R <td>E CG 12- LEAD</td><td>Routine</td><td>04/14/2021 10:03 AM EDT</td><td> Rheumatic mitral regurgitation</td><td></td> 04/14/2021 10:03:21 AM EDT Rheumatic mitral regurgitation [facility] Rheumatic mitral regurgitation URNLS DIP STICK/TABLET RGNT AUTO W/O MICROSCOPY <td>UR INALYSIS W/O MICRO</td><td>Routine</td><td>04/14/2021 10:00 AM EDT</td><td> Rheumatic mitral regurgitation</td><td> </td> 04/14/2021 10:00:00 AM EDT Rheumatic mitral regurgitation [facility] Rheumatic mitral regurgitation ROOM TEMP AB SCREEN <td>ROOM TEMP AB SCREEN</td> <td>Routine</td><td>04/14/2021 9:40 AM EDT</td><td> Rheumatic mitral regurgitation</td><td> </td> 04/14/2021 09:40:00 AM EDT Rheumatic mitral regurgitation [facility] Rheumatic mitral regurgitation NT PRO BNP <td>NT PRO BNP</td><td>Routi ne</td><td>04/14/2021 9:40 AM EDT</td><td> Rheumatic mitral regurgitation</td><td> </td> 04/14/2021 09:40:00 AM EDT Rheumatic mitral regurgitation [facility] Rheumatic mitral regurgitation THROMBOPLASTIN TIME PARTIAL PLASMA/WHOLE BLOOD <td>APTT</td><td>Routine</td><td>04/14/2021 9:40 AM EDT</td><td> Rheumatic mitral regurgitation</td><td> </td> 04/14/2021 09:40:00 AM EDT Rheumatic mitral regurgitation [facility] Rheumatic mitral regurgitation PROTHROMBIN TIME <td>PROTIME-INR</td><td>Rout ine</td><td>04/14/2021 9:40 AM EDT</td><td> Rheumatic mitral regurgitation</td><td> </td> 04/14/2021 09:40:00 AM EDT Rheumatic mitral regurgitation [facility] Rheumatic mitral regurgitation BLOOD COUNT COMPLETE AUTO&AUTO DIFRNTL WBC COUNT <td>C BC AND DIFFERENTIAL</td><td>Routine</td><td>04/14/2021 9:40 AM EDT</td><td> Rheumatic mitral regurgitation</td><td> </td> 04/14/2021 09:40:00 AM EDT Rheumatic mitral regurgitation [facility] Rheumatic mitral regurgitation BLOOD TYPING ABO <td>TYPE AND SCREEN</td><td> Routine</td><td>04/14/2021 9:40 AM EDT</td><td> Rheumatic mitral regurgitation</td><td> </td> 04/14/2021 09:40:00 AM EDT Rheumatic mitral regurgitation [facility] Rheumatic mitral regurgitation HEMOGLOBIN GLYCOSYLATED A1C <td>HEMOGLOBIN A1C</td><td>Routine</td><td>04/14/2021 9:40 AM EDT</td><td> Rheumatic mitral regurgitation</td><td> </td> 04/14/2021 09:40:00 AM EDT Rheumatic mitral regurgitation [facility] Rheumatic mitral regurgitation COMPREHENSIVE METABOLIC PANEL <td>COMPREHENSIVE METABO LIC PANEL</td><td>Routine</td><td>04/14/2021 9:40 AM EDT</td><td> Rheumatic mitral regurgitation</td><td> </td> 04/14/2021 09:40:00 AM EDT Rheumatic mitral regurgitation [facility] Rheumatic mitral regurgitation POC ARTERIAL BLOOD GAS <td>POC ARTERIAL BLOOD GAS</td><td>Routine</td><td>04/14/2021 9:38 AM EDT</td><td></td><td> </td> 04/14/2021 09:38:00 AM EDT [facility] Bronchospasm Evaluation 03/20/2021 12:00:00 AM EDT [facility] ([facility]) Plethysmography Determination Lung Volumes & Per Airway Resi st 03/20/2021 12:00:00 AM EDT [facility] ([facility]) DIFFUSING CAPACITY 03/20/2021 12:00:00 AM EDT [facility] ([facility]) ECG ROUTINE ECG W/LEAST 12 LDS W/I&R <td>POCT AMB EKG</td><td>Routine</td><td>02/06/2021 5:47 PM EDT</td><td> Rheumatic mitral stenosis with insufficiency</td><td> </td> 02/06/2021 05:47:00 PM EDT Rheumatic mitral stenosis with insufficiency [facility] Rheumatic mitral stenosis with insuffici ency OFFICE OUTPATIENT VISIT 15 MINUTES 01/15/2021 12:00:00 AM EDT [facility] ([facility] ECG ROUTINE ECG W/LEAST 12 LDS W/I&R <td>POCT AMB EKG</td><td>Routine</td><td>01/06/2021</td><td> Shortness of breath</td><td> </td> 01/06/2021 12:00:00 AM EDT Shortness of breath [facility] Shortness of breath RADEX SPINE ENTIRE SURVEY STD ANTEROPOST&LAT <td>CARDI AC CATHETERIZATION</td><td>Routine</td><td>12/10/2020 1:25 PM EDT</td><td> Shortness of breath Rheumatic mitral regurgitation Rheumatic mitral stenosis with insufficiency Peripheral vascular disease Hypercholesterolemia Smoker Right carotid bruit</td><td> </td> 12/10/2020 05:25:21 PM EDT Right carotid bruitSmokerHypercholestero lemiaPeripheral vascular diseaseRheumatic mitral stenosis with insufficiencyRheumatic mitral regurgitationShortness of breath [facility] Right carotid bruit Smoker Hypercholesterolemia Peripheral vascular disease Rheumatic mitral stenosis with insuffici ency Rheumatic mitral regurgitation Shortness of breath COVID/FLU AB/RSV PCR <td>COVID/FLU AB/RSV PCR</td ><td>STAT</td><td>12/10/2020 9:50 AM EDT</td><td></td><td> </td> 12/10/2020 01:50:00 PM EDT [facility] BLOOD COUNT COMPLETE AUTOMATED <td>CBC</td><td>STAT</t d><td>12/10/2020 9:36 AM EDT</td><td></td><td> </td> 12/10/2020 01:36:00 PM EDT [facility] BASIC METABOLIC PANEL CALCIUM TOTAL <td>BASIC METABOLI C PANEL</td><td>STAT</td><td>12/10/2020 9:36 AM EDT</td><td></td><td> </td> 12/10/2020 01:36:00 PM EDT [facility] ECG ROUTINE ECG W/LEAST 12 LDS W/I&R <td>POCT AMB EKG</td><td>Routine</td><td>12/09/2020 10:59 AM EDT</td><td> Shortness of breath</td><td> </td> 12/09/2020 02:59:00 PM EDT Shortness of breath [facility] Shortness of breath OFFICE OUTPATIENT NEW 30 MINUTES 11/26/2020 12:00:00 A M EDT [facility] ([facility]) Results ID Date Data Source US Duplex, Ext LOWER Veins, Unilat 06/20/2021 12:00:00 AM ED T [facility] ([facility]) Name Value Range Interpretation Code Description Data Romi rce(s) Supporting Document(s) US Duplex, Ext LOWER Vein s, Unilat [facility] ([facility]) ID Date Data Source [id number] 05/21/2021 06:14:57 PM [facility]T [facility] INFORMATIONPatient MRN Name Date of Age Gend*PT [id number] Adrian Andrews 1970 50 years M ---PT Location Admission Date/Time Visit ID Attending Provider --- --- --- --- EPI ID CSN Admitting Provider [id number] ---Agree with the proposed plan. Name Value Range Interpretation Code Description Data Romi rce(s) Supporting Document(s) ID Date Data Source [id number] 05/08/2021 05:44:19 PM EDT [facility] INFORMATIONPatient MRN Name Date of Age Gend*PT [id number] Adrian Andrews 1970 50 years M IPPT Location Admission Date/Time Visit ID Attending [id number] 04/17/21 0518 --- --- EPI ID CSN Admitting Provider [id number] Chandler Corrigan MD([id number]) [place] [address] OPERATIVE REPORT OPNAME: ADRIAN ANDREWS#: [id number] #: [id number] ADMISSION DATE: 04/17/2021OB: 1970 SEX: M PT TYPE: I CardACCT #: [id number] CARE PHYSICIAN: MAURICIO JIMENEZHAFAIZADATE OF OPERATION: 04/17/2021REOPERATIVE DIAGNOSES:Severe symptomatic mitral stenosis and mitral regurgitation.POSTOPERATIVE DIAGNOSES:Severe symptomatic mitral stenosis and mitral regurgitation.PROCEDURE:Minimally invasive mitral valve replacement consisting of #29 MedtronicMosaic bioprosthetic valve.SURGEON:Chandler Corrigan MDASSISTANT:CARIN Carmona.ANESTHESIA:General endotracheal.ANESTHESIOLOGIST:Rowan Macedo MDINDICATIONS FOR PROCEDURE:Patient is a pleasant 50-year-old gentleman with a possible history ofrheumatic fever in the past, who has developed [place] Heart Associationclass III symptoms and was found tohave evidence of at least moderate mitral stenosis and lsrdexbp-jq-eefimrrnqydu regurgitation. This was clearly a mixed picture [...] the Cardiovascular Intensive CareUnit.KALLIE Valdes/NAVEEN Job #: [id number] DOC #: [id number]: Primary Care Physician Toby Parish MD Name Value Range Interpretation Code Description Data Romi rce(s) Supporting Document(s) ID Date Data Source [id number] 04/23/2021 05:06:19 PM EDT [address] [address]Tqvqdyx Name: ADRIAN ANDREWSDOB: 1970Sex: MOrdering Provider: RALPH BENITEZuthmuzing Prov: RALPH FRANKLINReferring Provider: Procedure Performed: / XR CHEST PORTABLEExam Date: 04/23/2021 17:03MRN: [id number] Number: [id number] Class: InpatientAccount #: [id number] for Exam: F/U PneumothoraxTechnique: AP portable view obtained.Comparison: 04/23/2021Findings: Small right apical pneumothorax unchanged compared to prior exam.Small right pleural effusion. Airspace consolidation right lung base likely representing atelectasis. Small amount of atelectasis medial left lung base unchanged.Pacemaker unchanged.IMPRESSION: Small right apical pneumothorax unchanged compared to prior exam.Report electronically signed by: AZALEA BAL On 04/23/2021 5:06 PMWorkstation ID: [id number] Name Value Range Interpretation Code Description Data Romi rce(s) Supporting Document(s) ID Date Data Source [id number] 04/23/2021 03:35:06 PM EDT [facility] NT INFORMATIONPatient MRN Name Date of Age Gend*PT [id number] Adrian Andrews 1970 50 years M IPPT Location Admission Date/Time Visit ID Attending [id number] 04/17/21 0518 --- Chandler Corrigan MD([id number]) EPI ID CSN Admitting Provider [id number] Chandler Corrigan MD([id number]) Attestation signed by Rachel Drummond MD at 04/23/2021 3:35 PMI saw and evaluated the patient and reviewed the note. I agree with thehistory, physical and medical decision making.Signature: Rachel Drummond MDDate: April 23, 2021Time: 3:34 PM --Surgical Discharge SummaryPorterkevin Lee Christian Health Care CenterN: [id number] date: 04/17/2021dmitting Physician: PRESLEY Valdesischarge date and time:Discharge Orders Placed(From admission, onward) NoneDischarge Physician: Ike Arreaga Diagnosis: Rheumatic mitral regurgitationSecondary Diagnoses:Active Hospital Problems Diagnosis Date Noted Rheumatic mitral regurgitation 12/09/2020 Added automatically from request for surgery [id number] Hospital ProblemsNo resolved problems to display.Discharge Medications: [...] with Dr. Corrigan in 1 week, with [facility] Parish in2-3 weeks, and with PCP [...] rce(s) Supporting Document(s) ID Date Data Source [id number] 04/23/2021 01:43:11 PM EDT [address] [address]Mofphfx Name: ADRIAN SUMNERB: 1970Sex: MOrdering Provider: ADRIANA MONTEMAYORAuthorizing Prov: ADRIANA MONTEMAYORReferralexsandra Provider: Procedure Performed: / XR CHEST PA AND LATERALExam Date: 04/23/2021 13:39MRN: [id number] Number: [id number] Class: InpatientAccount #: [id number] for Exam: chest tube removal, PTXTechnique: PA [...] AZALEA BAL On 04/23/2021 1:43 PMWorkstation ID: [id number] Name Value Range Interpretation Code Description Data Romi rce(s) Supporting Document(s) ID Date Data Source [id number] 04/23/2021 02:57:39 PM EDT [facility] Name Value Range Interpretation Code Description Data Romi rce(s) Supporting Document(s) MAGNESIUM 2.6 mg/dL (1.7-2.4) H [facility] ID Date Data Source [id number] 04/23/2021 02:57:39 PM EDT [facility] Name Value Range Interpretation Code Description Data Romi rce(s) Supporting Document(s) SODIUM 137 mmol/L (136-145) [facility] POTASSIUM 4.5 mmol/L (3.6-5.2) [facility] CHLORIDE 103 mmol/L (100-108) [facility] CO2 26 mmol/L (22-31) [facility] ANION GAP 8 mmol/L (7-16) [facility] UREA NITROGEN 12 mg/dL (7-24) [facility] CREATININE 1.11 mg/dL (0.80-1.30) [facility] BUN/CREAT RATIO 10.8 RATIO (10.0-20.0) [facility] GLUCOSE 74 mg/dL (70-99) [facility] CALCIUM 8.9 mg/dL (8.4-10.2) [facility] GFR >60 ml/min/1.73m2 (>59) [facility] GFR ( AMER) >60 ml/min/1.73m2 (>59) [facility] GFR INTERPRETATION [facility] --NORMAL KIDNEY FUNCTION OR MILD DISEASE - GFR >OR= 60CHRONIC KIDNEY DISEASE - GFR 15 - 59RENAL FAILURE - GFR <15 Est. GFR calculation based on the MDRDstudy equation, which assumes a steadystate for creatinine. Est. GFR should notbe used for medication dosing. ID Date Data Source [id number] 04/23/2021 02:22:41 PM EDT [facility] Name Value Range Interpretation Code Description Data Romi rce(s) Supporting Document(s) WBC 7.5 10*3/uL (4.1-11.0) [facility] RBC 3.70 10*6/uL (4.60-6.10) L [facility] HGB 11.1 g/dL (13.5-18.0) L [facility] HCT 33.9 % (41.0-53.0) [facility] MCV 91.5 fL (80.0-95.0) [facility] MCH 29.8 pg (27.0-32.0) [facility] MCHC 32.6 g/dL (32.0-36.0) [facility] RDW 15.7 % (10.5-14.5) H [facility] PLT 171 10*3/uL (150-450) [facility] MPV 9.5 fL (7.1-10.7) [facility] ID Date Data Source [id number] 04/23/2021 02:15:53 PM EDT [facility] Name Value Range Interpretation Code Description Data Romi rce(s) Supporting Document(s) PT 13.4 s (9.2-11.9) H [facility] INR 1.30 [facility] SUGGESTED THERAPEUTIC RANGES USING INR F ORSTABILIZED ANTICOAGULATED PATIENTS:STANDARD DOSE THERAPY INR 2.0-3.0 DVT, PE, PREVENT DVT OR EMBOLISMHIGH DOSE THERAPY INR 2.5-3.5 PREVENT EMBOLISM FROM MECHANICAL HEART VALVE ID Date Data Source [id number] 04/23/2021 09:48:43 AM EDT [facility] Name Value Range Interpretation Code Description Data Romi rce(s) Supporting Document(s) EKG [facility] JJEWWv4zUbMDPkDrv1BbIhBxFNMbHE5hreb5V5M7wUGyJ0CbnVSsd7mrE6DzN0AkUZDwQRULKM4NbQVm jb2 [file] mO+NXTMWviCOaqS9hRxz5sL5r1Ct8WfZEzuQ5GKrVi9K8mtrv8GQfDNWe9EazY5XyoJ3O4AoxlTUs+FURNACE TAPPER [file] x1rhO6m0bV9Lhyl+QLZ47QfIur4Y92VRAVMvFv80mRBJ2Jiesl9pqbNUUBoOAPAFKyOkELJKSRTHU+Сергей [file] [employer] gF4gGfJgdq9zwuL+V4rPV9ru7ZCqM4Jc7AV6T2DQvpji1sRqRpBd2cTU6tCvdDaajdX+yc8qUtm6TsBs Wc9dkNg9KfnGSizQ+9PI+azUVznrWHoa/Z5t/m1qbKSheh2fQbobi9D0meHyyY4h0JYJ6/ls+86IbUR3 1BU92/k300oJ5sW290Q85gg/9rby1t+gfhpKqi3Ylk [file] rsrCEnS298wUPhRsgahDwSQ/s+R+rm1avItyN [file] MDAwMDAgbiAKMDAwMDAwMTQwNiAwMDAwMCBuIAowMD IqVEH7WlTpTBAqUZViUJ1dIpQaZOKdLRE2ZFftVADlKKLzvpLJVCUcXGJuDLrgPJIwURZyTELjVVmdMM QuQEIdQVW7EFRgOTWwPT5eJuJvCBBzSVVcJNJpXkR0AeDuFqMMsUZmcBdalbp2WXotJ6u1NXRoHVpeWH 6iykUkGLHkMkpjTd0laZS5HZBzCdzBXh4Hm8DhybY5giSiOzVrCrSuHxbwQEHSBd== ID Date Data Source [id number] 04/23/2021 08:11:59 AM EDT [address] [id number] Name: ADRIAN SUMNERLadonna: 1970Sex: MOrdering Provider: ALVERTO Sneed Prov: ALVERTO Becker Provider: Procedure Performed: / XR CHEST PA AND LATERALExam Date: 04/23/2021 08:01MRN: [id number] Number: [id number] Class: InpatientAccount #: [id number] for Exam: ATX/effusionsTechnique: PA and lateral views [...] AZALEA PLAZA On 04/23/2021 8:11 AMWorkstation ID: [id number] - PS360 Name Value Range Interpretation Code Description Data Romi rce(s) Supporting Document(s) ID Date Data Source [id number] 04/22/2021 06:41:59 PM EDT [address] [id number] Name: ADRIAN Jesus SUMNERB: 1970Sex: MOrdering Provider: ALVERTO Sneed Prov: ALVERTO Becker Provider: Procedure Performed: / XR CHEST PORTABLEExam Date: 04/22/2021 18:39MRN: [id number] Number: [id number] Class: InpatientAccount #: [id number] for Exam: in PACU- s/p PPMTechnique: AP portable view obtained.Comparison: 04/22/2021 0659 hoursFindings: Pacemaker appears be in satisfactory position. No pneumothorax. Right-sided chest tube in place. Mild bibasilar atelectasis. Mediastinum unrema rkable.IMPRESSION: Pacemaker appears to be in satisfactory position. No pneumothorax. Mild bibasilar atelectasis.Report electronically signed by: AZALEA BAL On 04/22/2021 6:41 PMWorkstation ID: [id number] - PS360 Name Value Range Interpretation Code Description Data Romi rce(s) Supporting Document(s) ID Date Data Source [id number] 04/22/2021 06:20:30 PM EDT [facility] NT INFORMATIONPatient MRN Name Date of Age Gend*PT [id number] Adrian Andrews 1970 50 years M IPPT Location Admission Date/Time [facility] ID [facility] --- Chandler Corrigan MD([id number]) EPI ID CSN Admitting Provider [id number] Cahndler Corrigan MD([id number])Permanent Pacemaker ImplantationCardiovascular and Thoracic Surgery Operative ReportDate of Procedure: 04/22/2021 Patient's PCP: URI HENDRICKSatient Name: Adrian Andrews 50 years maleDate of :1970MRN: [id number]: [id number]: [facility] [place] Note Date and Time: 04/22/2021 6:17 PMDate of Admission: 04/17/2021 5:18 AMSurgeon(s): Surgeon(s):Gray Negrete Physician:Dr. Chioperative diagnoses:1. Post Mitral Surgery Third Degree AV BlockPostoperative diagnoses:1. Post Mitral Surgery Third Degree AV BlockProcedure:1. DDD Dual Chamber Pacemaker ImplantationSurgeon:Rachel Drummond MDAnesthesia:Peter Provider(s):Anesthesiologist: Nick Senior MD; YUNIOR JenkinsRNA: Mercedes Beltran CRNAEstimated Blood Loss:20 ccStaff:OR Ocean Clam Boat Captain: Destinee Montemayor RN; Pepper Page RNRadiology Tech: Bernardo Bello Scrub Person: Jcarlos Patricia Nurse: Chayito Montes RNImplants:Medtronic Pacemaker Model Reny serial # [id number] was placedAtrial Lead Model # 4076-52 Serial Number [id number]: Threshold AF, [id number] Ohms.Ventricular Lead Model # 4076-58 Serial Number [id number]: Threshold 0.75 V,Impedance 817 Ohms.Description of Procedure:After [...] recovery room in stable condition.Rachel Drummond MD [facility] FACSCardiovascular Thoracic Surgery04/22/2021, 6:17 PM Name Value Range Interpretation Code Description Data Romi rce(s) Supporting Document(s) ID Date Data Source [id number] 04/22/2021 06:13:55 PM EDT [address] [id number] Name: ADRIAN WAED: 1970Sex: MOrdering Provider: RACHEL DRUMMONDAuthorizing Prov: RACHEL DRUMMONDReferralexsandra Provider: Procedure Performed: / XR FLUORO PACEMAKER INSERTExam Date: 04/22/2021 18:10MRN: [id number] Number: [id number] Class: InpatientAccount #: [id number] for Exam: heart blockTechnique: Fluoroscopy with no digital spot images obtained.Fluoroscopy time: 103 SecondsNumber of Spot Images:Comparison: NoneFindings: Fluoroscopy performed during pacemaker insertion procedure.IMPRESSION: Fluoroscopy performed during pacemaker insertion procedure. One image obtained.Report electronically signed by: AZALEA BAL On 04/22/2021 6:13 PMWorkstation ID: [id number] - [id number] Name Value Range Interpretation Code Description Data Romi rce(s) Supporting Document(s) ID Date Data Source [id number] 04/22/2021 04:45:15 PM EDT [facility] NT INFORMATIONPatient MRN Name Date of Age Gend*PT [id number] Adrian Andrews Jesus 1970 50 years M IPPT Location Admission Date/Time Visit ID Attending [id number] 04/17/21 0518 --- Chandler Corrigan MD([id number]) EPI ID CSN Admitting Provider [id number] Chandler Corrigan MD([id number])H&P and daily progress notes since admission reviewed. Changes to the patient'scondition since admission have been documented in the progress notes and noted.Rachel Drummond MD4:44 PM Name Value Range Interpretation Code Description Data Romi rce(s) Supporting Document(s) ID Date Data Source [id number] 04/22/2021 06:22:24 PM EDT Lab [facility] SPEC EXP DATE 04/25/2021ATI ENT ABO/Rh O NEGATIVEANTIBODY SCREEN NEGATIVETESTING SITE PERFORMED AT [address] [place] [id number] BANK COMMENT BLOOD TYPE CONFIRMED. Name Value Range Interpretation Code Description Data Romi rce(s) Supporting Document(s) TYPE AND SCREEN [facility] ID Date Data Source [id number] 04/22/2021 01:55:00 PM EDT [facility] Name Value Range Interpretation Code Description Data Romi rce(s) Supporting Document(s) SARS coronavirus 2 RNA [Presence] in Res piratory specimen by LEON with probe detection NOT DETECTED [facility] This lab was reported by [facility]. ID Date Data Source [id number] 04/22/2021 04:27:15 PM EDT Lab [facility] sunny GARCIA Name Value Range Interpretation Code Description Data Romi rce(s) Supporting Document(s) SPECIMEN DESCRIPTION [facility] INFLUENZA A (NEG) [facility] [place] INFLUENZA B (NEG) [facility] Y RSV (NEG) [facility] COMMENT [facility] THE [place] FDA HAS MADE THIS TEST AVAILABL RENOER AN EMERGENCY USE AUTHORIZATION(EUA) FOR THE DETECTION AND/OR DIAGNOSISOF THE VIRUS THAT CAUSES COVID-19.PERFORMED AT [address] [place] [id number] COVID19 RESULT (NDET) [facility] THIS ASSAY AMPLIFIES AND DETECTSTHE TARG ET RNA USING REAL-TIME PCR.TESTING PERFORMED ON [employer] GENEXPERTNEGATIVE 2019_NCOV RT-PCR RESULTS DONOT PRECLUDE 2019_NCOV INFECTION ANDSHOULD NOT BE USED THE SOLE BASISFOR PATIENT MANAGEMENT DECISIONS. FIRST TEST [facility] EMPLOYED IN HLTHCARE [facility] SYMPTOMATIC [facility] [place] DATE OF SYMPT ONSET [facility] HOSPITALIZED [facility] ICU [facility] CONGREGATE CARE SET [facility] ID Date Data Source [id number] 04/22/2021 10:33:39 AM EDT [facility] GARCIA Name Value Range Interpretation Code Description Data Romi rce(s) Supporting Document(s) POTASSIUM 4.3 mmol/L (3.6-5.2) [facility] ID Date Data Source [id number] 04/22/2021 07:54:56 AM EDT [address] [id number] Name: ADRIAN SUMNERB: 1970Sex: MOrdering Provider: MAURICIO SAUCEDAAuthoantonio Prov: MAURICIO SAUCEDARefjosé antonio Provider: Procedure Performed: / XR CHEST PORTABLEExam Date: 04/22/2021 07:05MRN: [id number] Number: [id number] Class: InpatientAccount #: [id number] for Exam: PneumoniaTechnique: AP portable view obtained.Comparison: [...] AZALEA PLAZA On 04/22/2021 7:54 AMWorkstation ID: [id number] - [id number] Name Value Range Interpretation Code Description Data Romi rce(s) Supporting Document(s) ID Date Data Source [id number] 04/22/2021 04:41:34 AM EDT [facility] Name Value Range Interpretation Code Description Data Romi rce(s) Supporting Document(s) MAGNESIUM 2.0 mg/dL (1.7-2.4) [facility] ID Date Data Source [id number] 04/22/2021 04:41:34 AM EDT [facility] Name Value Range Interpretation Code Description Data Romi rce(s) Supporting Document(s) SODIUM 139 mmol/L (136-145) [facility] POTASSIUM 4.0 mmol/L (3.6-5.2) [facility] CHLORIDE 107 mmol/L (100-108) [facility] CO2 27 mmol/L (22-31) [facility] ANION GAP 5 mmol/L (7-16) L [facility] UREA NITROGEN 11 mg/dL (7-24) [facility] CREATININE 0.92 mg/dL (0.80-1.30) [facility] BUN/CREAT RATIO 12.0 RATIO (10.0-20.0) [facility] GLUCOSE 89 mg/dL (70-99) [facility] CALCIUM 8.4 mg/dL (8.4-10.2) [facility] GFR >60 ml/min/1.73m2 (>59) [facility] GFR ( AMER) >60 ml/min/1.73m2 (>59) [facility] GFR INTERPRETATION [facility] --NORMAL KIDNEY FUNCTION OR MILD DISEASE - GFR >OR= 60CHRONIC KIDNEY DISEASE - GFR 15 - 59RENAL FAILURE - GFR <15 Est. GFR calculation based on the MDRDstudy equation, which assumes a steadystate for creatinine. Est. GFR should notbe used for medication dosing. ID Date Data Source [id number] 04/22/2021 04:05:45 AM EDT [facility] Name Value Range Interpretation Code Description Data Romi rce(s) Supporting Document(s) WBC 6.9 10*3/uL (4.1-11.0) [facility] [place] RBC 3.27 10*6/uL (4.60-6.10) L [facility] HGB 9.8 g/dL (13.5-18.0) L [facility] HCT 30.0 % (41.0-53.0) L [facility] MCV 91.6 fL (80.0-95.0) [facility] MCH 30.0 pg (27.0-32.0) [facility] MCHC 32.7 g/dL (32.0-36.0) [facility] RDW 15.9 % (10.5-14.5) H [facility] PLT 127 10*3/uL (150-450) L [facility] MPV 8.8 fL (7.1-10.7) [facility] ID Date Data Source [id number] 04/22/2021 04:20:20 AM EDT [facility] Name Value Range Interpretation Code Description Data Romi rce(s) Supporting Document(s) PT 16.2 s (9.2-11.9) H [facility] INR 1.58 [facility] SUGGESTED THERAPEUTIC RANGES USING INR F ORSTABILIZED ANTICOAGULATED PATIENTS:STANDARD DOSE THERAPY INR 2.0-3.0 DVT, PE, PREVENT DVT OR EMBOLISMHIGH DOSE THERAPY INR 2.5-3.5 PREVENT EMBOLISM FROM MECHANICAL HEART VALVE ID Date Data Source [id number] 04/21/2021 04:14:38 AM EDT [facility] Name Value Range Interpretation Code Description Data Romi rce(s) Supporting Document(s) PT 29.8 s (9.2-11.9) H [facility] INR 3.02 [facility] SUGGESTED THERAPEUTIC RANGES USING INR F ORSTABILIZED ANTICOAGULATED PATIENTS:STANDARD DOSE THERAPY INR 2.0-3.0 DVT, PE, PREVENT DVT OR EMBOLISMHIGH DOSE THERAPY INR 2.5-3.5 PREVENT EMBOLISM FROM MECHANICAL HEART VALVE ID Date Data Source [id number] 04/21/2021 04:36:06 AM EDT [facility] Name Value Range Interpretation Code Description Data Romi rce(s) Supporting Document(s) SODIUM 138 mmol/L (136-145) [facility] POTASSIUM 4.2 mmol/L (3.6-5.2) [facility] CHLORIDE 105 mmol/L (100-108) [facility] CO2 26 mmol/L (22-31) [facility] ANION GAP 7 mmol/L (7-16) [facility] UREA NITROGEN 12 mg/dL (7-24) [facility] CREATININE 0.85 mg/dL (0.80-1.30) [facility] BUN/CREAT RATIO 14.1 RATIO (10.0-20.0) [facility] GLUCOSE 98 mg/dL (70-99) [facility] CALCIUM 8.0 mg/dL (8.4-10.2) L [facility] GFR >60 ml/min/1.73m2 (>59) [facility] GFR ( AMER) >60 ml/min/1.73m2 (>59) [facility] GFR INTERPRETATION [facility] --NORMAL KIDNEY FUNCTION OR MILD DISEASE - GFR >OR= 60CHRONIC KIDNEY DISEASE - GFR 15 - 59RENAL FAILURE - GFR <15 Est. GFR calculation based on the MDRDstudy equation, which assumes a steadystate for creatinine. Est. GFR should notbe used for medication dosing. ID Date Data Source [id number] 04/21/2021 04:08:43 AM EDT [facility] Name Value Range Interpretation Code Description Data Romi rce(s) Supporting Document(s) WBC 8.5 10*3/uL (4.1-11.0) [facility] [place] RBC 3.35 10*6/uL (4.60-6.10) L [facility] HGB 10.2 g/dL (13.5-18.0) L [facility] HCT 30.8 % (41.0-53.0) L [facility] MCV 92.1 fL (80.0-95.0) [facility] MCH 30.4 pg (27.0-32.0) [facility] MCHC 33.1 g/dL (32.0-36.0) [facility] RDW 16.5 % (10.5-14.5) H [facility] PLT 126 10*3/uL (150-450) L [facility] MPV 9.1 fL (7.1-10.7) [facility] ID Date Data Source [id number] 04/20/2021 12:04:24 PM EDT [address] [id number] Name: ADRIAN SUMNERB: 1970Sex: MOrdering Provider: RON Renteria Prov: RON Ernst Provider: Procedure Performed: / XR CHEST PORTABLEExam Date: 04/20/2021 11:57MRN: [id number] Number: [id number] Class: InpatientAccount #: [id number] for Exam: ptx, CT to H2O sealTechnique: [...] AZALEA BAL On 04/20/2021 12:04 PMWorkstation ID: [id number] - [id number] Name Value Range Interpretation Code Description Data Romi rce(s) Supporting Document(s) ID Date Data Source [id number] 04/20/2021 12:37:07 PM EDT [facility] Name Value Range Interpretation Code Description Data Romi rce(s) Supporting Document(s) POTASSIUM 4.4 mmol/L (3.6-5.2) [facility] ID Date Data Source [id number] 04/20/2021 07:54:28 AM EDT [facility] Name Value Range Interpretation Code Description Data Romi rce(s) Supporting Document(s) POC NOVA GLU 115 mg/dL (70-99) H [facility] [place] PERFORMED BY [facility] ID Date Data Source [id number] 04/20/2021 09:26:51 AM EDT [facility] Name Value Range Interpretation Code Description Data Romi rce(s) Supporting Document(s) TOTAL PROTEIN 6.6 g/dL (6.4-8.2) [facility] ALBUMIN 3.0 g/dL (3.5-4.6) L [facility] GLOBULIN 3.6 g/dL (2.7-4.3) [facility] ALB/GLOB RATIO 0.8 RATIO [facility] BILIRUBIN,TOTAL 0.4 mg/dL (0.0-1.0) [facility] PLEASE NOTE:Total bilirubin results may be falselyelevated in patients taking Eltrombopag. BILIRUBIN,CONJUGATED 0.2 mg/dL (0.0-0.3) [facility] BILIRUBIN,UNCONJ. 0.2 mg/dL (0.0-0.7) [facility] ALKALINE PHOSPHATASE 77 U/L (45-117) [facility] AST (SGOT) 23 U/L (11-39) [facility] ALT (SGPT) 16 U/L (12-78) [facility] ID Date Data Source [id number] 04/20/2021 08:35:21 AM EDT [facility] Name Value Range Interpretation Code Description Data Romi rce(s) Supporting Document(s) POTASSIUM 3.9 mmol/L (3.6-5.2) [facility] ID Date Data Source [id number] 04/20/2021 03:54:21 AM EDT [facility] Name Value Range Interpretation Code Description Data Romi rce(s) Supporting Document(s) MAGNESIUM 2.4 mg/dL (1.7-2.4) [facility] ID Date Data Source [id number] 04/20/2021 03:54:21 AM EDT [facility] Name Value Range Interpretation Code Description Data Romi rce(s) Supporting Document(s) SODIUM 140 mmol/L (136-145) [facility] POTASSIUM 3.9 mmol/L (3.6-5.2) [facility] CHLORIDE 109 mmol/L (100-108) H [facility] CO2 28 mmol/L (22-31) [facility] ANION GAP 3 mmol/L (7-16) L [facility] UREA NITROGEN 19 mg/dL (7-24) [facility] CREATININE 0.84 mg/dL (0.80-1.30) [facility] BUN/CREAT RATIO 22.6 RATIO (10.0-20.0) H [facility] GLUCOSE 97 mg/dL (70-99) [facility] CALCIUM 7.9 mg/dL (8.4-10.2) L [facility] GFR >60 ml/min/1.73m2 (>59) [facility] GFR ( AMER) >60 ml/min/1.73m2 (>59) [facility] GFR INTERPRETATION [facility] --NORMAL KIDNEY FUNCTION OR MILD DISEASE - GFR >OR= 60CHRONIC KIDNEY DISEASE - GFR 15 - 59RENAL FAILURE - GFR <15 Est. GFR calculation based on the MDRDstudy equation, which assumes a steadystate for creatinine. Est. GFR should notbe used for medication dosing. ID Date Data Source [id number] 04/20/2021 03:35:37 AM EDT [facility] Name Value Range Interpretation Code Description Data Romi rce(s) Supporting Document(s) CALCIUM IONIZED 5.00 mg/dL (4.64-5.28) [facility] IONIZED CALCIUM NORMALIZED TO PH 7.40 AN D 37 DEGREES C. ID Date Data Source [id number] 04/20/2021 03:28:56 AM EDT [facility] Name Value Range Interpretation Code Description Data Romi rce(s) Supporting Document(s) PT 27.7 s (9.2-11.9) H [facility] INR 2.80 [facility] SUGGESTED THERAPEUTIC RANGES USING INR F ORSTABILIZED ANTICOAGULATED PATIENTS:STANDARD DOSE THERAPY INR 2.0-3.0 DVT, PE, PREVENT DVT OR EMBOLISMHIGH DOSE THERAPY INR 2.5-3.5 PREVENT EMBOLISM FROM MECHANICAL HEART VALVE ID Date Data Source [id number] 04/20/2021 02:59:42 AM EDT [facility] Name Value Range Interpretation Code Description Data Romi rce(s) Supporting Document(s) WBC 8.5 10*3/uL (4.1-11.0) [facility] [place] RBC 3.23 10*6/uL (4.60-6.10) L [facility] HGB 9.8 g/dL (13.5-18.0) L [facility] HCT 29.5 % (41.0-53.0) L [facility] MCV 91.2 fL (80.0-95.0) [facility] MCH 30.4 pg (27.0-32.0) [facility] MCHC 33.4 g/dL (32.0-36.0) [facility] RDW 16.1 % (10.5-14.5) H [facility] PLT 115 10*3/uL (150-450) L [facility] MPV 9.0 fL (7.1-10.7) [facility] ID Date Data Source [id number] 04/19/2021 05:57:39 PM EDT [facility] Name Value Range Interpretation Code Description Data Romi rce(s) Supporting Document(s) POC NOVA GLU 105 mg/dL (70-99) H [facility] [place] [facility]FOR[facility] BY [facility] ID Date Data Source [id number] 04/19/2021 02:40:19 PM EDT [address] [id number] Name: ADRIAN Lee TAISHAB: 1970Sex: MOrdering Provider: RON LINKAuthorimarta Prov: RON Ernst Provider: Procedure Performed: / XR CHEST PORTABLEExam Date: 04/19/2021 13:24MRN: [id number] Number: [id number] Class: InpatientAccount #: [id number] for Exam: PTX, CT clampedTechnique: AP portable view obtained.Comparison: 04/17/2021Findings: Right-sided chest tubes remain in place. Clyman-Lissett catheter and nasogastric tube endotracheal tube been removed. There is now a large right-sided pneumothorax. Left lung is clear.IMPRESSION: New large right-sided pneumothorax status post chest tube clamping.Findings communicated utilizing critical results protocol.Report electronically signed by: GARCIA BLACKMAN On 04/19/2021 2:40 PMWorkstation ID: [id number] - [id number] Name Value Range Interpretation Code Description Data Romi rce(s) Supporting Document(s) ID Date Data Source [id number] 04/19/2021 01:02:28 PM EDT [facility] Name Value Range Interpretation Code Description Data Romi rce(s) Supporting Document(s) POC NOVA GLU 104 mg/dL (70-99) H [facility] [place] [facility] BY [facility] ID Date Data Source [id number] 04/19/2021 08:26:25 AM EDT [facility] Name Value Range Interpretation Code Description Data Romi rce(s) Supporting Document(s) POC NOVA GLU 109 mg/dL (70-99) H [facility] [place] [facility] ID Date Data Source [id number] 04/19/2021 03:22:11 AM EDT [facility] Name Value Range Interpretation Code Description Data Romi rce(s) Supporting Document(s) CALCIUM IONIZED 4.92 mg/dL (4.64-5.28) [facility] IONIZED CALCIUM NORMALIZED TO PH 7.40 AN D 37 DEGREES C. ID Date Data Source [id number] 04/19/2021 03:18:21 AM EDT [facility] Name Value Range Interpretation Code Description Data Romi rce(s) Supporting Document(s) MAGNESIUM 2.1 mg/dL (1.7-2.4) [facility] ID Date Data Source [id number] 04/19/2021 03:18:21 AM EDT [facility] Name Value Range Interpretation Code Description Data Romi rce(s) Supporting Document(s) SODIUM 134 mmol/L (136-145) L [facility] POTASSIUM 4.4 mmol/L (3.6-5.2) [facility] CHLORIDE 102 mmol/L (100-108) [facility] CO2 26 mmol/L (22-31) [facility] ANION GAP 6 mmol/L (7-16) L [facility] UREA NITROGEN 16 mg/dL (7-24) [facility] CREATININE 0.83 mg/dL (0.80-1.30) [facility] BUN/CREAT RATIO 19.3 RATIO (10.0-20.0) [facility] GLUCOSE 117 mg/dL (70-99) H [facility] CALCIUM 8.3 mg/dL (8.4-10.2) L [facility] GFR >60 ml/min/1.73m2 (>59) [facility] GFR ( AMER) >60 ml/min/1.73m2 (>59) [facility] GFR INTERPRETATION [facility] --NORMAL KIDNEY FUNCTION OR MILD DISEASE - GFR >OR= 60CHRONIC KIDNEY DISEASE - GFR 15 - 59RENAL FAILURE - GFR <15 Est. GFR calculation based on the MDRDstudy equation, which assumes a steadystate for creatinine. Est. GFR should notbe used for medication dosing. ID Date Data Source [id number] 04/19/2021 03:07:30 AM EDT [facility] Name Value Range Interpretation Code Description Data Romi rce(s) Supporting Document(s) PT 13.2 s (9.2-11.9) H [facility] INR 1.27 [facility] SUGGESTED THERAPEUTIC RANGES USING INR F ORSTABILIZED ANTICOAGULATED PATIENTS:STANDARD DOSE THERAPY INR 2.0-3.0 DVT, PE, PREVENT DVT OR EMBOLISMHIGH DOSE THERAPY INR 2.5-3.5 PREVENT EMBOLISM FROM MECHANICAL HEART VALVE ID Date Data Source [id number] 04/19/2021 02:58:50 AM EDT [facility] Name Value Range Interpretation Code Description Data Romi rce(s) Supporting Document(s) WBC 9.3 10*3/uL (4.1-11.0) [facility] [place] RBC 3.49 10*6/uL (4.60-6.10) L [facility] HGB 10.6 g/dL (13.5-18.0) L [facility] HCT 31.8 % (41.0-53.0) L [facility] MCV 91.1 fL (80.0-95.0) [facility] MCH 30.3 pg (27.0-32.0) [facility] MCHC 33.3 g/dL (32.0-36.0) [facility] RDW 16.0 % (10.5-14.5) H [facility] PLT 118 10*3/uL (150-450) L [facility] MPV 9.0 fL (7.1-10.7) [facility] ID Date Data Source [id number] 04/18/2021 06:41:39 PM EDT [facility] Name Value Range Interpretation Code Description Data Romi rce(s) Supporting Document(s) POC NOVA GLU 123 mg/dL (70-99) H [facility] [place] [facility] ID Date Data Source [id number] 04/18/2021 12:41:59 PM EDT [facility] Name Value Range Interpretation Code Description Data Romi rce(s) Supporting Document(s) POC NOVA GLU 121 mg/dL (70-99) H [facility] [place] [facility] ID Date Data Source [id number] 04/18/2021 09:52:51 AM EDT [facility] Name Value Range Interpretation Code Description Data Romi rce(s) Supporting Document(s) POC NOVA GLU 129 mg/dL (70-99) H [facility] [place] [facility] ID Date Data Source [id number] 04/18/2021 11:32:10 AM EDT [facility] Name Value Range Interpretation Code Description Data Romi rce(s) Supporting Document(s) MAGNESIUM 2.5 mg/dL (1.7-2.4) H [facility] ID Date Data Source [id number] 04/18/2021 11:32:10 AM EDT [facility] Name Value Range Interpretation Code Description Data Romi rce(s) Supporting Document(s) POTASSIUM 4.8 mmol/L (3.6-5.2) [facility] ID Date Data Source [id number] 04/18/2021 06:12:19 AM EDT [facility] Name Value Range Interpretation Code Description Data Romi rce(s) Supporting Document(s) POC NOVA GLU 152 mg/dL (70-99) H [facility] [place] [facility] ID Date Data Source [id number] 04/18/2021 03:08:33 AM EDT [facility] Name Value Range Interpretation Code Description Data Romi rce(s) Supporting Document(s) POC NOVA GLU 139 mg/dL (70-99) H [facility] [place] [facility] ID Date Data Source [id number] 04/18/2021 04:50:13 AM EDT [facility] Name Value Range Interpretation Code Description Data Romi rce(s) Supporting Document(s) CALCIUM IONIZED 4.84 mg/dL (4.64-5.28) [facility] IONIZED CALCIUM NORMALIZED TO PH 7.40 AN D 37 DEGREES C. ID Date Data Source [id number] 04/18/2021 04:44:33 AM EDT [facility] Name Value Range Interpretation Code Description Data Romi rce(s) Supporting Document(s) SODIUM 137 mmol/L (136-145) [facility] POTASSIUM 4.1 mmol/L (3.6-5.2) [facility] CHLORIDE 105 mmol/L (100-108) [facility] CO2 24 mmol/L (22-31) [facility] ANION GAP 8 mmol/L (7-16) [facility] UREA NITROGEN 14 mg/dL (7-24) [facility] CREATININE 0.84 mg/dL (0.80-1.30) [facility] BUN/CREAT RATIO 16.7 RATIO (10.0-20.0) [facility] GLUCOSE 121 mg/dL (70-99) H [facility] CALCIUM 7.9 mg/dL (8.4-10.2) L [facility] GFR >60 ml/min/1.73m2 (>59) [facility] GFR ( AMER) >60 ml/min/1.73m2 (>59) [facility] GFR INTERPRETATION [facility] --NORMAL KIDNEY FUNCTION OR MILD DISEASE - GFR >OR= 60CHRONIC KIDNEY DISEASE - GFR 15 - 59RENAL FAILURE - GFR <15 Est. GFR calculation based on the MDRDstudy equation, which assumes a steadystate for creatinine. Est. GFR should notbe used for medication dosing. ID Date Data Source [id number] 04/18/2021 04:44:33 AM EDT [facility] Name Value Range Interpretation Code Description Data Romi rce(s) Supporting Document(s) MAGNESIUM 2.0 mg/dL (1.7-2.4) [facility] ID Date Data Source [id number] 04/18/2021 04:13:28 AM EDT [facility] Name Value Range Interpretation Code Description Data Romi rce(s) Supporting Document(s) PT 12.1 s (9.2-11.9) H [facility] INR 1.16 [facility] SUGGESTED THERAPEUTIC RANGES USING INR F ORSTABILIZED ANTICOAGULATED PATIENTS:STANDARD DOSE THERAPY INR 2.0-3.0 DVT, PE, PREVENT DVT OR EMBOLISMHIGH DOSE THERAPY INR 2.5-3.5 PREVENT EMBOLISM FROM MECHANICAL HEART VALVE ID Date Data Source [id number] 04/18/2021 04:10:04 AM EDT [facility] Name Value Range Interpretation Code Description Data Romi rce(s) Supporting Document(s) WBC 8.1 10*3/uL (4.1-11.0) [facility] [place] RBC 3.49 10*6/uL (4.60-6.10) L [facility] HGB 10.5 g/dL (13.5-18.0) L [facility] HCT 32.0 % (41.0-53.0) L [facility] MCV 91.5 fL (80.0-95.0) [facility] MCH 30.1 pg (27.0-32.0) [facility] MCHC 32.9 g/dL (32.0-36.0) [facility] RDW 15.9 % (10.5-14.5) H [facility] PLT 130 10*3/uL (150-450) L [facility] MPV 8.6 fL (7.1-10.7) [facility] ID Date Data Source [id number] 04/18/2021 12:30:41 AM EDT [facility] Name Value Range Interpretation Code Description Data Romi rce(s) Supporting Document(s) POC NOVA GLU 130 mg/dL (70-99) H [facility] [place] [facility] ID Date Data Source [id number] 04/17/2021 10:03:38 PM EDT [facility] Name Value Range Interpretation Code Description Data Romi rce(s) Supporting Document(s) POC NOVA GLU 122 mg/dL (70-99) H [facility] [place] [facility] CLINICAL STAFF ID Date Data Source [id number] 04/17/2021 10:32:33 PM EDT [facility] Name Value Range Interpretation Code Description Data Romi rce(s) Supporting Document(s) POTASSIUM 3.9 mmol/L (3.6-5.2) [facility] ID Date Data Source [id number] 04/17/2021 10:20:50 PM EDT [facility] Name Value Range Interpretation Code Description Data Romi rce(s) Supporting Document(s) WBC 7.3 10*3/uL (4.1-11.0) [facility] RBC 3.51 10*6/uL (4.60-6.10) L [facility] HGB 10.5 g/dL (13.5-18.0) L [facility] HCT 32.4 % (41.0-53.0) L [facility] MCV 92.3 fL (80.0-95.0) [facility] MCH 29.9 pg (27.0-32.0) [facility] MCHC 32.4 g/dL (32.0-36.0) [facility] RDW 16.0 % (10.5-14.5) H [facility] PLT 134 10*3/uL (150-450) L [facility] MPV 8.7 fL (7.1-10.7) [facility] ID Date Data Source [id number] 04/17/2021 07:58:36 PM EDT [facility] Name Value Range Interpretation Code Description Data Romi rce(s) Supporting Document(s) POC NOVA GLU 133 mg/dL (70-99) H [facility] CLINICAL STAFF ID Date Data Source [id number] 04/17/2021 05:59:37 PM EDT [facility] Name Value Range Interpretation Code Description Data Romi rce(s) Supporting Document(s) POC NOVA GLU 136 mg/dL (70-99) H [facility] CLINICAL STAFF ID Date Data Source [id number] 04/17/2021 05:28:31 PM EDT [facility] Name Value Range Interpretation Code Description Data Romi rce(s) Supporting Document(s) POC SOURCE [facility] PUNCTURE SITE [facility] O2 THERAPY [facility] POC FIO2 40 [facility] KB TEST [facility] MODE [facility] PEEP/MAP 8 CM H2O [facility] PRESSURE SUPPORT 8 CM H2O [facility] SP RATE 17 BMP [facility] POC PH 7.37 pH (7.35-7.45) [facility] POC PCO2 40.3 MMHG (32.0-48.0) [facility] POC PO2 60 MMHG (83-108) L [facility] POC SAT O2 90 % (95-99) L [facility] POC BASE DEFICIT 2 MMOL/L (0-2) [facility] POC HCO3 23.1 MMOL/L (21.0-29.0) [facility] POC TOTAL CO2 24 MMOL/L (23.0-32.0) [facility] CLINICAL STAFF ID Date Data Source [id number] 04/17/2021 04:02:12 PM EDT [facility] Name Value Range Interpretation Code Description Data Romi rce(s) Supporting Document(s) POC NOVA GLU 131 mg/dL (70-99) H [facility] CLINICAL STAFF ID Date Data Source [id number] 04/17/2021 05:41:01 PM EDT [facility] Name Value Range Interpretation Code Description Data Romi rce(s) Supporting Document(s) POTASSIUM 4.6 mmol/L (3.6-5.2) [facility] ID Date Data Source [id number] 04/17/2021 02:30:31 PM EDT [facility] Name Value Range Interpretation Code Description Data Romi rce(s) Supporting Document(s) POC NOVA GLU 131 mg/dL (70-99) H [facility] CLINICAL STAFF ID Date Data Source [id number] 04/17/2021 01:32:24 PM EDT [facility] Name Value Range Interpretation Code Description Data Romi rce(s) Supporting Document(s) POC NOVA GLU 112 mg/dL (70-99) H [facility] PERFOR[facility] BY [facility] CLINICAL STAFF ID Date Data Source [id number] 04/17/2021 12:32:32 PM EDT [facility] Name Value Range Interpretation Code Description Data Romi rce(s) Supporting Document(s) POC NOVA GLU 115 mg/dL (70-99) H [facility] PERFOR[facility] CLINICAL STAFF ID Date Data Source [id number] 04/17/2021 12:03:59 PM EDT [address] [address]Beqcict Name: ADRIAN SUMNERB: 1970Sex: MOrdering Provider: RON Renteria Prov: RON Ernst Provider: Procedure Performed: / XR CHEST PORTABLEExam Date: 04/17/2021 11:45MRN: [id number] Number: [id number] Class: InpatientAccount #: [id number] for Exam: Evaluate for Clyman Lissett catheter placement and/or endotracheal tubeTechnique: AP portable view obtained.Comparison: NoneFindings: The tip of the ET tube is 4.3 cm above the francine. The NG tube is coiled in the esophagus with its tip in the proximal esophagus. The tip of the Clyman-Lissett catheter is in the proximal right pulmonary artery. Right-sided chest tubes are present. There is probable mild interstitial pulmonary edema. The lungs are otherwise clear. No pleural effusion or pneumothorax is seen. The cardiomediastinal silhouette is unremarkable.IMPRESSION: 1. NG tube is coiled in the esophagus. Repositioning is recommended.2. Appropriate positions of ET tube and Clyman-Lissett catheter.3. Probable mild interstitial pulmonary edema.This finding was communicated via the departmental critical results reporting protocol.Report electronically signed by: MERCEDES PEÑA On 04/17/2021 12:03 PMWorkstation ID: [id number] Name Value Range Interpretation Code Description Data Romi rce(s) Supporting Document(s) ID Date Data Source [id number] 04/17/2021 12:03:01 PM EDT [facility] Name Value Range Interpretation Code Description Data Romi rce(s) Supporting Document(s) POC SOURCE [facility] CP BYPASS [facility] POC MIX BARRY PO2 46 mm[Hg] (35-45) H [facility] POC MIX BARRY SO2 77 % (60-80) [facility] P[facility] HCT 31 % (41.0-53.0) L [facility] ID Date Data Source [id number] 04/17/2021 12:03:01 PM EDT [facility] Name Value Range Interpretation Code Description Data Romi rce(s) Supporting Document(s) POC SOURCE [facility] PUNCTURE SITE [facility] O2 THERAPY [facility] POC FIO2 80 [facility] KB TEST [facility] MODE [facility] TIDAL VOLUME 550 mL [facility] RATE 18 BPM [facility] PEEP/MAP 10 CM H2O [facility] PRESSURE SUPPORT 12 CM H2O [facility] SP RATE 0 BMP [facility] POC PH 7.33 pH (7.35-7.45) L [facility] POC PCO2 51.0 MMHG (32.0-48.0) H [facility] POC PO2 228 MMHG (83-108) H [facility] POC SAT O2 100 % (95-99) H [facility] POC BASE EXCESS 0 MMOL/L (0-3) [facility] P[facility] HCO3 26.8 MMOL/L (21.0-29.0) [facility] POC TOTAL CO2 28 MMOL/L (23.0-32.0) [facility] CLINICAL STAFF ID Date Data Source [id number] 04/17/2021 11:30:10 AM EDT [facility] Name Value Range Interpretation Code Description Data Romi rce(s) Supporting Document(s) EKG [facility] REQIBe2uXsBUSqPbw5IzKdKwWUMfXQ9eqmn3P4Z6aOWoX5OolHLya1gfP9DyM3QpFUSiQTXJTD9QtVTt jb2 [file] wKUKR8eT4F3xM2QNx3j/8G4cASZgQ0N98vH+QDsXpvuoZZk47RNnYg7z4io+J Carlos/rYETA884F8V7/J [file] oFZyZz+EjSl9xrZnYxko6Bcbvgr9K8nay2zzCI/program evaluation consultant [file] AwMDAwMDEyOTcgMDAwMDAgbiAKMDAwMDAwMTQwNiAw SFOhRCXbHHcpZUVbCLW6IDFbGWKbZGZyTL8mYpCpSVGuDUL3OIgiURVfLFDpprWXWXOqPNMxBVmqSTDd HIYwWXMfKOqxBRRaXQWlIVN6DMLhDMWyNA6aFpAuTOWxOXLcNRKtFeH9OfNaUjQNpOVoePnfaal0ZRns J7z6GMRzOXsvXL8aduTkQYHpBiucEi8npNO8KUUkHjtBHh0Zq1UqiqC6xfLzRuCdTJs9JfcaCHMBGf== ID Date Data Source [id number] 04/17/2021 11:14:48 AM EDT [facility] Name Value Range Interpretation Code Description Data Romi rce(s) Supporting Document(s) &PDF [facility] VHROVm6wXdHFAfWf39/XQPmlGZRjf3NzBYfeEAe0HKqbLNSwW5FlhFbiPLLQMzDmV3LSUDObJBXjDOwa pYy [file] ICAgICAgICAgICAgICAgICAgICAgICAgICAgICAgICAgICAgICAgICAgICAgICAgICAgICAgICAgICAg ICAgICAgICAgICAgDQogICAgICAgICAgICAgICAgIC AgICAgICAgICAgICAgICAgICAgICAgICAgICAgICAgICAgICAgICAgICAgICAgICAgICAgICAgICAgIC AgICAgICAgICAgICAgICAgICAgICAgDQogICAgICAgICAgICAgICAgICAgICAgICAgICAgICAgICAgIC AgICAgICAgICAgICAgICAgICAgICAgICAgICAgICAg ICAgICAgICAgICAgICAgICAgICAgICAgICAgICAgICAgDQogICAgICAgICAgICAgICAgICAgICAgICAg ICAgICAgICAgICAgICAgICAgICAgICAgICAgICAgICAgICAgICAgICAgICAgICAgICAgICAgICAgICAg ICAgICAgICAgICAgICAgDQogICAgICAgICAgICAgIC AgICAgICAgICAgICAgICAgICAgICAgICAgICAgICAgICAgICAgICAgICAgICAgICAgICAgICAgICAgIC AgICAgICAgICAgICAgICAgICAgICAgICAgDQogICAgICAgICAgICAgICAgICAgICAgICAgICAgICAgIC AgICAgICAgICAgICAgICAgICAgICAgICAgICAgICAg ICAgICAgICAgICAgICAgICAgICAgICAgICAgICAgICAgICAgDQogICAgICAgICAgICAgICAgICAgICAg ICAgICAgICAgICAgICAgICAgICAgICAgICAgICAgICAgICAgICAgICAgICAgICAgICAgICAgICAgICAg ICAgICAgICAgICAgICAgICAgDQogICAgICAgICAgIC AgICAgICAgICAgICAgICAgICAgICAgICAgICAgICAgICAgICAgICAgICAgICAgICAgICAgICAgICAgIC AgICAgICAgICAgICAgICAgICAgICAgICAgICAgDQogICAgICAgICAgICAgICAgICAgICAgICAgICAgIC AgICAgICAgICAgICAgICAgICAgICAgICAgICAgICAg ICAgICAgICAgICAgICAgICAgICAgICAgICAgICAgICAgICAgICAgDQogICAgICAgICAgICAgICAgICAg ICAgICAgICAgICAgICAgICAgICAgICAgICAgICAgICAgICAgICAgICAgICAgICAgICAgICAgICAgICAg JMLuZZHgLMZeXOEjVPNoYJAfBOPqOTd6A2svIGRbCS UrYM6yGDq3Ls6+CDqYOgLtVYB9otWslW1ABY8vz8NuUWwzOTCqw1JyHJy2XX1ZDPQkSVxpCA9FWNheys 3VXPUeJALsrIEUm1dnPmZeDQS5MNLxYkdoIK5XXSJnL2bhtmWqXVFjOHMSCPlmQXGXIIzlAJAQIU5DXf CsX5TpnL66WDHNHg6+OLcdfwTjGxvNEuSdMYMyc2Ru CXl6TF7MWFKlAZsnPX5DINHfkT9cTQrgIG7YDnUwQHYdWMVQVvUtR89szWFjTPg8E9WeFxVdENEhVfav ZXMgPDwvTmFtZXMgWyBdDQogID4+ID4+LRneYH1RLSrcxgAkALZyWc5OOLRyXCO2IPRozFAdEkLsEHVO KJqcSL9EfBNeDGR0vN0sALzgKHWiZMVeU0fCTwXdeO izJP44hMvicoHcgZNhXWs+Bv0ROW2vr8NvLBa8qrViCOqiXNE0LAzhYSHaQUUgNVSnBLC3GMX3SUFXFb EmXHSdOXHvTQwpVKEiTQDtmg7LCUOsMDLcNPD9IJJxKNSbLFTmAAtmJSQxKWShVuV5XFZiCMHtWH6EEi TsLEPhEEUcGXouLULiJBUaqy7YVOAoJEMhHkQaXPEn QFDlNYZfWPkmOFOtYHDjMqUkJDStYEMpFM4VRpWrYSOaBGViMCvgDMFoFGIfob8HXHOgSVLeAvW6CADm XGKqHGGiKJpuCALnRND4SHI1SHIeBJNmEW8CHdLeOKBoQCrqOrBpWKKnBPRwiw7TZJBiDFUeREFtAZZl TDClCLUuGAefISRzBEX9RuU0GFWwOXWnVW8JGkBsQB IhBZm8KRZoHLGlYFWwnc7CFUGuCDSaGDF0ELIcQAPeYXWhZNjmFSOgYMA0VGIrAJGmUDUrOC4HAkFtBK HeDJs0GPzvQYHkDWFazy2ZWIQxZRSbHYiiQfBgCZRkTMHiYPluJETyMMBiNEP4ZOEfXPDpES1DCeVzIB XwOQGtBACsTRDrJQAygh2KTRAjQATnWfL8LoCnHFPa EAXrKSwbOCCvLJPqDZKpYNXyXJQoZE8IOdIxNQVdQaW7HkVaVUHbBXQzsi9TAAHlLBAwHbLjEKOeBTXj CHXbAKb8pwKoyAQmYLc8VJ5JG4HwskSbSvRJOp1Gq520MCAxRACrAo8IU6zgJd2bAPSpAJJZKw8GOMo7 KgNxNHu2JSJ4JBP7GRVyMRs1GIE4FvGdF7P7FSO8Go I+ORo9JJZmKoG9PSI6GtHkNQG3IBppLEucSWR2Rzv4OzSzQg0dPQSJUi8+DQpzdGFydHhyZWYNCjIyNj ZkNEefNNIIQl7X ID Date Data Source [id number] 04/17/2021 11:20:26 AM EDT [facility] Name Value Range Interpretation Code Description Data Romi rce(s) Supporting Document(s) POC NOVA GLU 73 mg/dL (70-99) [facility] CLINICAL STAFF ID Date Data Source [id number] 04/17/2021 12:39:18 PM EDT [facility] Name Value Range Interpretation Code Description Data Romi rce(s) Supporting Document(s) MAGNESIUM 3.8 mg/dL (1.7-2.4) H [facility] ID Date Data Source [id number] 04/17/2021 12:39:18 PM EDT [facility] Name Value Range Interpretation Code Description Data Romi rce(s) Supporting Document(s) SODIUM 143 mmol/L (136-145) [facility] POTASSIUM 4.4 mmol/L (3.6-5.2) [facility] CHLORIDE 111 mmol/L (100-108) H [facility] CO2 28 mmol/L (22-31) [facility] ANION GAP 4 mmol/L (7-16) L [facility] UREA NITROGEN 16 mg/dL (7-24) [facility] CREATININE 1.20 mg/dL (0.80-1.30) [facility] BUN/CREAT RATIO 13.3 RATIO (10.0-20.0) [facility] GLUCOSE 66 mg/dL (70-99) L [facility] CALCIUM 9.2 mg/dL (8.4-10.2) [facility] GFR >60 ml/min/1.73m2 (>59) [facility] GFR ( AMER) >60 ml/min/1.73m2 (>59) [facility] GFR INTERPRETATION [facility] --NORMAL KIDNEY FUNCTION OR MILD DISEASE - GFR >OR= 60CHRONIC KIDNEY DISEASE - GFR 15 - 59RENAL FAILURE - GFR <15 Est. GFR calculation based on the MDRDstudy equation, which assumes a steadystate for creatinine. Est. GFR should notbe used for medication dosing. ID Date Data Source [id number] 04/17/2021 12:27:17 PM EDT [facility] Name Value Range Interpretation Code Description Data Romi rce(s) Supporting Document(s) CALCIUM IONIZED 5.48 mg/dL (4.64-5.28) H [facility] IONIZED CALCIUM NORMALIZED TO PH 7.40 AN D 37 DEGREES C. ID Date Data Source [id number] 04/17/2021 12:17:31 PM EDT [facility] Name Value Range Interpretation Code Description Data Romi rce(s) Supporting Document(s) WBC 6.1 10*3/uL (4.1-11.0) [facility] RBC 3.03 10*6/uL (4.60-6.10) L [facility] HGB 9.1 g/dL (13.5-18.0) L [facility] HCT 27.6 % (41.0-53.0) L [facility] MCV 91.0 fL (80.0-95.0) [facility] MCH 29.9 pg (27.0-32.0) [facility] MCHC 32.9 g/dL (32.0-36.0) [facility] RDW 15.6 % (10.5-14.5) H [facility] PLT 122 10*3/uL (150-450) L [facility] MPV 8.4 fL (7.1-10.7) [facility] ID Date Data Source [id number] 04/17/2021 10:42:31 AM EDT [facility] Name Value Range Interpretation Code Description Data Romi rce(s) Supporting Document(s) POC SOURCE [facility] CP BYPASS [facility] POC PH 7.19 pH (7.35-7.45) L [facility] POC PCO2 64.2 MMHG (32.0-48.0) H [facility] POC PO2 99 MMHG (83-108) [facility] POC SAT O2 96 % (95-99) [facility] POC BASE DEFICIT 4 MMOL/L (0-2) H [facility] POC HCO3 24.4 MMOL/L (21.0-29.0) [facility] POC TOTAL CO2 26 MMOL/L (23.0-32.0) [facility] CLINICAL STAFF POC HCT 29 % (41.0-53.0) L [facility] POC SODIUM 139 MMOL/L (136-145) [facility] POC POTASSIUM 4.1 MMOL/L (3.6-5.2) [facility] POC IONIZED CALCIUM 6.3 MG/DL (4.6-5.3) H [facility] POC GLU 85 MG/DL (70-99) [facility] PER[facility] ID Date Data Source [id number] 04/17/2021 10:42:26 AM EDT [facility] Name Value Range Interpretation Code Description Data Romi rce(s) Supporting Document(s) POC ACT 109 s (80-140) [facility] CLINICAL STAFF ID Date Data Source [id number] 04/17/2021 12:24:25 PM EDT [facility] Name Value Range Interpretation Code Description Data Romi rce(s) Supporting Document(s) APTT 24.1 s (22.0-34.3) [facility] ID Date Data Source [id number] 04/17/2021 12:24:25 PM EDT [facility] Name Value Range Interpretation Code Description Data Romi rce(s) Supporting Document(s) PT 13.0 s (9.2-11.9) H [facility] INR 1.25 [facility] SUGGESTED THERAPEUTIC RANGES USING INR F ORSTABILIZED ANTICOAGULATED PATIENTS:STANDARD DOSE THERAPY INR 2.0-3.0 DVT, PE, PREVENT DVT OR EMBOLISMHIGH DOSE THERAPY INR 2.5-3.5 PREVENT EMBOLISM FROM MECHANICAL HEART VALVE ID Date Data Source [id number] 04/17/2021 09:54:59 AM EDT [facility] INFORMATIONPatient MRN Name Date of Age Gend*PT [id number] Adrian Andrews 1970 50 years M SDAPT Location Admission Date/Time Visit ID Attending Provider --- --- --- --- EPI ID CSN Admitting Provider [id number] ---AirwayPatient location during procedure: ORUrgency: electiveDifficult airway: [...] rce(s) Supporting Document(s) ID Date Data Source [id number] 04/17/2021 09:49:33 AM EDT [facility] Name Value Range Interpretation Code Description Data Romi rce(s) Supporting Document(s) POC SOURCE [facility] CP BYPASS [facility] POC PH 7.29 pH (7.35-7.45) L [facility] POC PCO2 48.7 MMHG (32.0-48.0) H [facility] POC PO2 306 MMHG (83-108) H [facility] POC SAT O2 100 % (95-99) H [facility] POC BASE DEFICIT 3 MMOL/L (0-2) H [facility] POC HCO3 23.2 MMOL/L (21.0-29.0) [facility] POC TOTAL CO2 25 MMOL/L (23.0-32.0) [facility] CLINICAL STAFF POC HCT 26 % (41.0-53.0) L [facility] POC SODIUM 134 MMOL/L (136-145) L [facility] POC POTASSIUM 5.0 MMOL/L (3.6-5.2) [facility] POC IONIZED CALCIUM 5.0 MG/DL (4.6-5.3) [facility] POC GLU 164 MG/DL (70-99) H [facility] ID Date Data Source [id number] 04/17/2021 09:49:28 AM EDT [facility] Name Value Range Interpretation Code Description Data Romi rce(s) Supporting Document(s) POC SOURCE [facility] CP BYPASS [facility] POC VENOUS PH 7.25 pH (7.33-7.43) L [facility] POC VENOUS PCO2 51.9 MM HG (38.0-50.0) H [facility] POC VENOUS PO2 49 MM HG (30-50) [facility] POC VENOUS SO2 77 % (60-85) [facility] POC VENOUS BASE DEFICIT 4 MMOL/L (0-2) H [facility] POC VENOUS HCO3 23.0 MMOL/L (23.0-27.0) [facility] POC VENOUS TOTAL CO2 25 MMOL/L (24-28) [facility] CLINICAL STAFF POC HCT 26 % (41.0-53.0) L [facility] POC SODIUM 133 MMOL/L (136-145) L [facility] POC POTASSIUM 5.0 MMOL/L (3.6-5.2) [facility] POC IONIZED CALCIUM 5.1 MG/DL (4.6-5.3) [facility] POC GLU 162 MG/DL (70-99) H [facility] ID Date Data Source [id number] 04/17/2021 09:49:23 AM EDT [facility] Name Value Range Interpretation Code Description Data Romi rce(s) Supporting Document(s) POC ACT 450 s (80-140) H [facility] CLINICAL STAFF ID Date Data Source [id number] 04/17/2021 09:16:57 AM EDT [facility] Name Value Range Interpretation Code Description Data Romi rce(s) Supporting Document(s) POC SOURCE [facility] CP BYPASS [facility] POC VENOUS PH 7.27 pH (7.33-7.43) L [facility] POC VENOUS PCO2 43.6 MM HG (38.0-50.0) [facility] POC VENOUS PO2 50 MM HG (30-50) [facility] POC VENOUS SO2 80 % (60-85) [facility] POC VENOUS BASE DEFICIT 7 MMOL/L (0-2) H [facility] POC VENOUS HCO3 19.8 MMOL/L (23.0-27.0) L [facility] POC VENOUS TOTAL CO2 21 MMOL/L (24-28) L [facility] CLINICAL STAFF POC HCT 22 % (41.0-53.0) L [facility] POC SODIUM 134 MMOL/L (136-145) L [facility] POC POTASSIUM 5.4 MMOL/L (3.6-5.2) H [facility] POC IONIZED CALCIUM 4.8 MG/DL (4.6-5.3) [facility] POC GLU 132 MG/DL (70-99) H [facility] PER[facility] ID Date Data Source [id number] 04/17/2021 09:23:22 AM EDT [facility] Name Value Range Interpretation Code Description Data Romi rce(s) Supporting Document(s) POC ACT 521 s (80-140) H [facility] CLINICAL STAFF ID Date Data Source [id number] 04/17/2021 08:50:23 AM EDT [facility] Name Value Range Interpretation Code Description Data Romi rce(s) Supporting Document(s) POC SOURCE [facility] CP BYPASS [facility] POC PH 7.23 pH (7.35-7.45) L [facility] POC PCO2 54.0 MMHG (32.0-48.0) H [facility] POC PO2 354 MMHG (83-108) H [facility] POC SAT O2 100 % (95-99) H [facility] POC BASE DEFICIT 5 MMOL/L (0-2) H [facility] POC HCO3 22.5 MMOL/L (21.0-29.0) [facility] POC TOTAL CO2 24 MMOL/L (23.0-32.0) [facility] CLINICAL STAFF POC HCT 32 % (41.0-53.0) L [facility] POC SODIUM 139 MMOL/L (136-145) [facility] POC POTASSIUM 4.3 MMOL/L (3.6-5.2) [facility] POC IONIZED CALCIUM 5.7 MG/DL (4.6-5.3) H [facility] POC GLU 114 MG/DL (70-99) H [facility] PER[facility] ID Date Data Source [id number] 04/17/2021 09:06:52 AM EDT [facility] Name Value Range Interpretation Code Description Data Romi rce(s) Supporting Document(s) POC ACT 555 s (80-140) H [facility] CLINICAL STAFF ID Date Data Source [id number] 04/21/2021 05:07:45 PM EDT [facility] [place], [place] [address]Tel# Surgical Pathology ReportPatient Name: ADRIAN ANDREWS: 1970Accession #:[id number](s) ReceivedA: Mitral valve leafletsClinical Diagnosis and HistoryRheumatic [...] myxoid change. No calcifications orvegetations are identified. County Administrator sections are submitted as A1.smmlmr/skl Reported: 2020Electronically Signed Out By Miller Lloyd MD [facility] [place] [address] [id number] component performed at [facility]ProntoForms[facility], Histopathology, [address] [place] [address], [phone].Reported at [facility], [address] [place] [address], [id number]. This report may includeimmunohistochemical or in-situ hybridization results. Testing wasdeveloped and the performance characteristics determined by [employer] as required by CLIA '88. The FDA hasdetermined that approval for specific use is not necessary for clinicaluse. The quality of Hematoxylin and Eosin stains and as applicable, forall immunohistochemical and/or special stains, including positive andnegative controls, were reviewed and considered appropriate.ICD codes I05.2CPT codesA: 45756K Name Value Range Interpretation Code Description Data Romi rce(s) Supporting Document(s) ID Date Data Source [id number] 04/17/2021 07:55:57 AM EDT Lab [facility] Name Value Range Interpretation Code Description Data Romi rce(s) Supporting Document(s) POC SOURCE [facility] CP BYPASS [facility] P[facility] PH 7.27 pH (7.35-7.45) L [facility] P[facility] PCO2 44.8 MMHG (32.0-48.0) [facility] P[facility] PO2 442 MMHG (83-108) H [facility] P[facility] SAT O2 100 % (95-99) H [facility] POC BASE DEFICIT 6 MMOL/L (0-2) H [facility] POC HCO3 20.6 MMOL/L (21.0-29.0) L [facility] POC TOTAL CO2 22 MMOL/L (23.0-32.0) L [facility] PERFORMED BY [facility] POC HCT 33 % (41.0-53.0) L [facility] POC SODIUM 139 MMOL/L (136-145) [facility] P[facility] POTASSIUM 4.1 MMOL/L (3.6-5.2) [facility] P[facility] IONIZED CALCIUM 4.9 MG/DL (4.6-5.3) [facility] POC GLU 92 MG/DL (70-99) [facility] PER[facility] ID Date Data Source [id number] 04/17/2021 07:55:52 AM EDT [facility] Name Value Range Interpretation Code Description Data Romi rce(s) Supporting Document(s) POC ACT 136 s (80-140) [facility] BY [facility] ID Date Data Source [id number] 04/17/2021 07:18:08 AM EDT [facility] NT INFORMATIONPatient MRN Name Date of Age Gend*PT [id number] Adrian Andrews 1970 50 years M SDAPT Location Admission Date/Time [facility] --- Chandler Corrigan MD([id number]) EPI ID CSN Admitting Provider [id number] Chandler Corrigan MD([id number])H&P reviewed. No changes Name Value Range Interpretation Code Description Data Romi rce(s) Supporting Document(s) ID Date Data Source [id number] 04/17/2021 06:32:20 AM EDT [facility] Name Value Range Interpretation Code Description Data Romi rce(s) Supporting Document(s) POC NOVA GLU 94 mg/dL (70-99) [facility] PERFORMED BY [facility] ID Date Data Source [id number] 04/17/2021 12:29:33 PM EDT [facility] SPEC EXP DATE 04/18/2021TEST ING SITE PERFORMED AT [address] [place] [id number] NUMBER [id number] COMPONENT TYPE LEUKOPOOR RED CELLSUNIT DIVISION 00STATUS OF UNIT REL FROM ALLOCTRANSFUSION STATUS OK TO TRANSFUSECROSSMATCH RESULT COMPATIBLEUNIT NUMBER [id number] COMPONENT TYPE LEUKOPOOR RED CELLSUNIT DIVISION 00STATUS OF UNIT REL FROM ALLOCTRANSFUSION STATUS OK TO TRANSFUSECROSSMATCH RESULT COMPATIBLE Name Value Range Interpretation Code Description Data Romi rce(s) Supporting Document(s) TRANSFUSE RED CELLS [facility] TESTING SITE PERFORMED AT [address] [place] [id number] ID Date Data Source [id number] 04/16/2021 09:44:31 AM EDT [facility] [facility] CenterPATI NT INFORMATIONPatient MRN Name Date of Age Gend*PT [id number] Adrian Andrews 1970 50 years M OPPT Location Admission Date/Time Visit ID Attending Provider --- --- --- Chandler Corrigan MD([id number]) EPI ID CSN Admitting Provider [id number] ---Addended by: JIA MCKEON on: 04/16/2021 09:44 AM Modules accepted: Orders Name Value Range Interpretation Code Description Data Romi rce(s) Supporting Document(s) ID Date Data Source [id number] 04/14/2021 11:55:35 AM EDT [facility]FORMATIONPatient MRN Name Date of Age Gend*PT [id number] Adrian Andrews 1970 50 years M OPPT Location Admission Date/Time Visit ID Attending Provider --- --- --- Chandler Corrigan MD([id number]) EPI ID CSN Admitting Provider [id number] ---HISTORY PHYSICALName: Adrian Andrews : 1970 Sex: male Care Provider[facility] Physician: Dr. CorriganInformant: The patient who is [...] mean transmitral gradient is 7 and peak eqpkocqa81 mmHg corresponding to moderate mitral stenosis. 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 Roland [facility]GIES:AllergiesAllergen Reactions Codeine RashMEDICATIONS:Prior to Admission medicationsMedication Sig [...] warm and dry.HEENT: He is normocephalic, atraumatic. [place] conjunctivae. Anicteric sclerae.Pupils are equal, round, reactive [...] Clear to auscultation. 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 No murmur appreciated on exam. Right carotidbruit.ABDOMEN: Bowel sounds positive times four. Soft, non tender. No reboundtenderness. No hepatosplenomegaly. Negative CVAT.GENITAL/RECTAL: Deferred.MUSCLE/SKELETAL: Strength is 5/5. Fighting Vehicle Systems Maintainer are equal. Limited range of motion ofleft shoulder.NEUROLOGICALLY: Cranial nerves II through XII are grossly intact.VASCULAR: Pulses are symmetrical. Trace edema.Anesthesia complications: DeniesSteroid use: He denies any oral steroid therapy for three weeks or greaterwithin the last 3 months.[facility] Frailty Scale :: 5/10 Mildly Frail [...] Cigarettes Smoking cessation information givento patient including [facility] quit line. Nicotine replacement products ifindicated by the attending6. Complex regional pain syndromeBased on above medical co morbidities, length of stay may be prolonged greaterthan previously anticipated.ALLERGIES:Codeine04/14/2021 11:55 Redd Mckeon NP*This document or parts of this document, were dictated using [employer] software. A reasonable attempt at proofreading has beenmade to minimize errors. Please call with any questions or corrections. Name Value Range Interpretation Code Description Data Romi rce(s) Supporting Document(s) ID Date Data Source [id number] 04/14/2021 10:27:00 AM EDT [facility] CAROTID DUPLEXCLINICAL HISTORY: Pretesting. Repair [...] rce(s) Supporting Document(s) ID Date Data Source [id number] 04/14/2021 10:20:00 AM EDT [facility] C HEST WO IV CONTRASTCLINICAL HISTORY: [...] which is not fully included in the kbdun-xv-dfou, the largest measuring 3 mm.IMPRESSION:1. Mild emphysema. No acute pulmonary abnormality.2. Several mildly prominent mediastinal lymph nodes measuring up to 12 mm in short axis, favored to be reactive. Consider follow-up CT in 3 months.3. At least 3 small calculi in the right kidney, not fully included in the mtgse-rf-nsgv.Dictated by: MERCEDES PEÑA on 04/14/2021lectronically Signed by: MERCEDES PEÑA on 04/14/2021 01:56 PMTranscribed by: kulwinder on 04/14/2021 01:56 PMCDS G code: ,CDS Modifier: ,cc: Name Value Range Interpretation Code Description Data Romi rce(s) Supporting Document(s) ID Date Data Source [id number] 04/14/2021 10:19:01 AM EDT [facility] Name Value Range Interpretation Code Description Data Romi rce(s) Supporting Document(s) EKG [facility] IHMEMh7kXoBNYvKmt1JwYsFhZHQzMQ0vold5H5F2wMDxE6AumSWmu1uhP3CoF6QwFDYlZXCENV8AyMTg jb2 [file] qBuZLNVkqSZLNVmqydJMlmayNJOlmSzNZGkmSzNZms qJOHSuiqVHdUuf3QYsOdp2VBs5P1tv/4tTyKgy9aG+RrjDn4PeTBv0iSQjSFjGs7p95PB2Mi7AYeQxt0 C564X2OrTmPRHSbBIocmQUoezyxBvNYCuepiXYzotiD0GSsxQptGXKbGCf4cHzbKv83aF2LdUTj+plWb 7nu0ub1jMtDnlBf+zbsva7c79i95KBIop8Juyp2hlg r8HCrXkIWxuXXECJ+A0J3zy44F/XKWLtFGIwFXxoHdtV9pQffKsVbh9gxVmqIxtamtU/vkMuV/OrPeRy sWdqC34B1aRT3BbyyInZqIHsWilreZ5Z8YZr+0QcErwl9eqN61Xs9gm+Lp2TC3iQNoCbtRc/jYNBAspg 0UKgTF9wOEpcqtDKEtbrWfoWgzhVPnwtIr4tjudPK2 7vsa21wvnnBtaV3erFeUfssdgopaeTGQ2zKUuvl6punsbW0+dLl++Uq+nrS3Szrh/xdOeRZahVUu/K9e 3CrIeV8R16h/SuelbwezSuq+t8i7n+S8dvvo7CzIKGV7c9NAqBfs5yP3yYif9jOpEt9C3YVBgGj1Z0OT J1nTO/say/qRX1fBzOeNHGXB4vNyTLvq13lCQGArsu /8lvru28UOrNlCdZSP5Qk9qtA+tw4MK4ZmCcWa1tLX/3K3yc5fIHtzQglQrLAwwdCSPEgK3B63tR+J2O Pu7O549IDrWHMH00Xypgb3D5ub3gmR6hjfyr8l3lOf3R7atG7LM1H9o7PsiMh4Iu5txHar0myfMGACma H3b9umP2aWcY6sPGjWf0yTMQYu0ItOlIJ+f8KDq/сергей [file] 5PHl/FuzHp4E4Vm8fkJ8CU0gE+BZgByzb9PO3oZ+Сергей [file] biAKMDAwMDAwMDUyMyAwMDAwMCBuIAowMDAwMDAwNj UzJJMuCCDlKT4wFqTtSWEcNDE7CXGsHFLbVISefhLWHJMyVWWzBGe1LSTrCINkITLiLDvbSQKsFGQfDY K3OCSeLRKiPN9sLgMvHIToWRQtLSUiIVBnQNLjqwWECPCeODIkNAW5GYAzGGFbIHPlKLoyYZHrKTKyIo h2ZOVdDCYgAY8dTyCbTVQyAVW4PHHyDFDyZNWeqyOP ZHVgJQE2Kek1GrZsVVUeYINsNAluMSDyTYJnJjV5ODXaXLYjOB4fTtOoZEDkJCW1YbLxFDDmJANacqVY WNYkIICfDQK5WcBgORLtUSOhAItzUALgKHRuVZUqIHK4BAG0FBLmQdJeBDcjUUWUDBvOW0FbanPeYtOO G2jxCw5bAnFpYLAEM8Oeo2VlTWDvGLSWAw3+JgM9DWJ0iXIrXbb1AgKhUxlmUSOWDo== ID Date Data Source [id number] 04/15/2021 11:05:37 AM EDT [facility] SPECIMEN DESCRIPTION URINE, COLLE CTION METHOD NOT SPECIFIEDCULTURE RESULTS NO GROWTHREPORT STATUS FINAL 04/15/2021 Name Value Range Interpretation Code Description Data Romi rce(s) Supporting Document(s) ID Date Data Source [id number] 04/14/2021 12:33:31 PM EDT [facility] Name Value Range Interpretation Code Description Data Romi rce(s) Supporting Document(s) COLOR [facility] APPEARANCE [facility] SPEC GRAV URINE 1.020 (1.003-1.030) [facility] PH URINE 6.0 (5.0-7.5) [facility] LEUK ESTERASE (NEG) [facility] NITRITE URINE (NEG) [facility] PROTEIN URINE (NEG) [facility] GLUCOSE URINE (NEG) [facility] KETONE URINE (NEG) [facility] [place] STEPHEN UROBILINOGEN 0.2 mg/dL (0-1.0) [facility] C ZAFAR BILIRUBIN URINE (NEG) [facility] BLOOD/HGB URINE (NEG) [facility] ID Date Data Source [id number] 04/14/2021 10:42:38 PM EDT [facility] Name Value Range Interpretation Code Description Data Romi rce(s) Supporting Document(s) ROOM TEMP AB SCREEN [facility] ROOM TEMP AB SCREEN NEGATIVE ID Date Data Source [id number] 04/14/2021 09:03:24 PM EDT [facility] SPEC EXP DATE 04/18/2021ATI ENT ABO/Rh O NEGATIVEANTIBODY SCREEN NEGATIVETESTING SITE PERFORMED AT [address] [place] [address] Name Value Range Interpretation Code Description Data Romi rce(s) Supporting Document(s) TYPE AND SCREEN [facility] ANTIBODY SCREEN NEGATIVE ID Date Data Source [id number] 04/14/2021 12:52:19 PM EDT [facility] Name Value Range Interpretation Code Description Data Romi rce(s) Supporting Document(s) HEMOGLOBIN A1C @ 5.3 % (4.0-6.0) [facility] sunny GARCIA Performed using Siemens [place] immunoassa y.Care must be taken when interpreting UmZ7lxgtnxqj in patients with a hemoglobin variantor decreased erythrocyte lifespan. Values 5.7 - 6.4% suggest prediabetes.Values >=6.5% are diagnostic for diabetes.REFERENCE: DIABETES CARE 2018: 41(S13-S27). EST AVERAGE GLUCOSE 105 mg/dL [facility] ID Date Data Source [id number] 04/14/2021 12:48:58 PM EDT [facility] Name Value Range Interpretation Code Description Data Romi rce(s) Supporting Document(s) NT PRO BNP 1465 pg/mL (0-125) H [facility] Y ID Date Data Source [id number] 04/14/2021 12:48:58 PM EDT [facility] Name Value Range Interpretation Code Description Data Romi rce(s) Supporting Document(s) SODIUM 139 mmol/L (136-145) [facility] POTASSIUM 4.7 mmol/L (3.6-5.2) [facility] CHLORIDE 112 mmol/L (100-108) H [facility] CO2 19 mmol/L (22-31) L [facility] ANION GAP 8 mmol/L (7-16) [facility] UREA NITROGEN 22 mg/dL (7-24) [facility] CREATININE 1.37 mg/dL (0.80-1.30) H [facility] BUN/CREAT RATIO 16.1 RATIO (10.0-20.0) [facility] GLUCOSE 78 mg/dL (70-99) [facility] CALCIUM 8.2 mg/dL (8.4-10.2) L [facility] TOTAL PROTEIN 6.9 g/dL (6.4-8.2) [facility] ALBUMIN 3.7 g/dL (3.5-4.6) [facility] GLOBULIN 3.2 g/dL (2.7-4.3) [facility] ALB/GLOB RATIO 1.2 RATIO [facility] ALKALINE PHOSPHATASE 118 U/L (45-117) H [facility] BILIRUBIN,TOTAL 0.4 mg/dL (0.0-1.0) [facility] PLEASE NOTE:Total bilirubin results may be falselyelevated in patients taking Eltrombopag. AST (SGOT) 18 U/L (11-39) [facility] ALT (SGPT) 19 U/L (12-78) [facility] GFR 55 ml/min/1.73m2 (>59) L [facility] GFR ( AMER) >60 ml/min/1.73m2 (>59) [facility] GFR INTERPRETATION [facility] --NORMAL KIDNEY FUNCTION OR MILD DISEASE - GFR >OR= 60CHRONIC KIDNEY DISEASE - GFR 15 - 59RENAL FAILURE - GFR <15 Est. GFR calculation based on the MDRDstudy equation, which assumes a steadystate for creatinine. Est. GFR should notbe used for medication dosing. ID Date Data Source [id number] 04/14/2021 12:39:14 PM EDT [facility] Name Value Range Interpretation Code Description Data Romi rce(s) Supporting Document(s) APTT 31.3 s (22.0-34.3) [facility] ID Date Data Source [id number] 04/14/2021 12:39:14 PM EDT [facility] Name Value Range Interpretation Code Description Data Romi rce(s) Supporting Document(s) PT 11.3 s (9.2-11.9) [facility] INR 1.09 [facility] SUGGESTED THERAPEUTIC RANGES USING INR F ORSTABILIZED ANTICOAGULATED PATIENTS:STANDARD DOSE THERAPY INR 2.0-3.0 DVT, PE, PREVENT DVT OR EMBOLISMHIGH DOSE THERAPY INR 2.5-3.5 PREVENT EMBOLISM FROM MECHANICAL HEART VALVE ID Date Data Source [id number] 04/14/2021 12:23:49 PM EDT [facility] Name Value Range Interpretation Code Description Data Romi rce(s) Supporting Document(s) WBC 7.5 10*3/uL (4.1-11.0) [facility] [place] RBC 3.62 10*6/uL (4.60-6.10) L [facility] HGB 11.0 g/dL (13.5-18.0) L [facility] HCT 33.4 % (41.0-53.0) L [facility] MCV 92.2 fL (80.0-95.0) [facility] MCH 30.5 pg (27.0-32.0) [facility] MCHC 33.1 g/dL (32.0-36.0) [facility] RDW 16.3 % (10.5-14.5) H [facility] PLT 200 10*3/uL (150-450) [facility] MPV 8.8 fL (7.1-10.7) [facility] NEUT % 63.1 % (35.0-75.0) [facility] LYMPH % 29.0 % (16.0-52.0) [facility] MONO % 5.8 % (0.0-8.0) [facility] EOS % 1.4 % (0.0-5.0) [facility] BASO % 0.7 % (0.0-4.0) [facility] NEUT # 4.7 10*3/uL (1.8-7.7) [facility] LYMPH # 2.2 10*3/uL (1.2-4.8) [facility] MONO # 0.4 10*3/uL (0.0-0.8) [facility] Eosinophils [#/volume] in Blood by Automated count 0.1 10*3/uL (0.0-0 .5) [facility] BASO # 0.1 10*3/uL (0.0-0.2) [facility] ID Date Data Source [id number] 04/14/2021 09:42:49 AM EDT [facility] Name Value Range Interpretation Code Description Data Romi rce(s) Supporting Document(s) POC SOURCE [facility] PUNCTURE SITE [facility] O2 THERAPY [facility] KB TEST [facility] POC PH 7.27 pH (7.35-7.45) L [facility] POC PCO2 32.7 MMHG (32.0-48.0) [facility] POC PO2 89 MMHG (83-108) [facility] POC SAT O2 96 % (95-99) [facility] POC BASE DEFICIT 11 MMOL/L (0-2) H [facility] POC HCO3 15.1 MMOL/L (21.0-29.0) L [facility] POC TOTAL CO2 16 MMOL/L (23.0-32.0) L [facility] PERFORMED BY [facility] CLINICAL STAFF ID Date Data Source [id number] 04/15/2021 10:33:27 AM EDT [facility] Name Value Range Interpretation Code Description Data Romi rce(s) Supporting Document(s) SPECIMEN DESCRIPTION [facility] STAPH SCREEN RESULTS (ONEGSA) A [facility] COMMENT [facility] RIC GENE TO DETECT STAPH AUREUS. [...] [place] This lab was reported by [facility]. ID Date Data Source [id number] 04/15/2021 07:17:38 AM EDT [facility] Name Value Range Interpretation Code Description Data Romi rce(s) Supporting Document(s) SPECIMEN DESCRIPTION [facility] COVID 19 RESULT (NDET) [facility] o f [facility] NEGATIVE COVID-19 RESULTS DONOT PRECLUDE COVID-2019 INFECTION ANDSHOULD NOT BE USED THE SOLE BASISFOR PATIENT MANAGEMENT DECISIONS. COMMENT [facility] THE U.S. 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 ON Siemens FIRST TEST [facility] EMPLOYED IN HLTHCARE Lab [facility] of [facility] SYMPTOMATIC [facility] RIC Sharpe DATE OF SYMPT ONSET [facility] HOSPITALIZED [facility] ICU [facility] CONGREGATE CARE SET [facility] ID Date Data Source [id number] 04/09/2021 06:14:43 PM EDT [facility] INFORMATIONPatient MRN Name Date of Age Gend*PT [id number] Adrian Andrews 1970 50 years M ---PT Location Admission Date/Time Visit ID Attending Provider --- --- --- --- EPI ID CSN Admitting Provider [id number] ---ConsultAssessment/Plan:50-year-old pleasant gentleman referred with most likely [...] None Highest education level: NoneOccupational History 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 Smoking status: Current Every [...] Social Gatherings with Friends and Family: Attends Rastafarian Services: Active Member of Clubs or Organizations: [...] rce(s) Supporting Document(s) ID Date Data Source [id number] 02/12/2021 02:29:00 PM EDT [facility] FASTING: UNKNOWNReceived: 02/08/2021 at 08:04:00 QPT: [facility], [address], [address] [place], [address], Jose Valentine MD Received: 02/08/2021 at 08:04:00 AMD : [employer], [address], [place], [address], Danielito Baum M.D.,PhD Name Value Range Interpretation [...] is approximately 13% higher for peopleidentified as -[place]ai[place]ese. eGFR NON-AFR. CITIZEN OF [place] 74 mL/min/1.73m2 > OR = 60 Normal [...] results) [facility] ID Date Data Source [id number] 02/12/2021 02:29:00 PM EDT [facility] FASTING: UNKNOWNReceived: 02/08/2021 at 08:04:00 QPT: [facility], [address], [address] [place], [address], Jose Valentine MD Received: 02/08/2021 at 08:04:00 AMD : [employer], [address], [place], [address], Danielito Baum M.D.,PhD Name Value Range Interpretation Code Description Data Romi rce(s) Supporting Document(s) Natriuretic peptide.B prohormone N-Terminal [Mass/volu me] in Serum or Plasma 578 pg/mL Above high normal [facility] For Heart Failure (HF) diagnosis, refere nce ranges inpatients with dyspnea are based on Shana JL, Et al.Am Inocente Cardiol. 2018;71:1104-9898.18-49 years:<= 300 pg/mL Normal, HF unlikely>= 450 [...] Clin Biochem. 2010;43:1405-10.For additional information, please refer tohttp://education.Work4ce.me/faq/HRK961(This link is being provided for informational/educational purposes only.) Your request to have a duplicate copy faxed has been acknowledged. Queued to: [id number] COLLECTION DATE RECEIVED. WE HAVE USEDTHE DATE THE SPECIMEN WAS [facility] THE COLLECTION DATE. IF THISIS INCORRECT, PLEASE CONTACT CLIENT SERVICES.PHONE NUMBER: [phone] ID Date Data Source [id number] 01/24/2021 12:50:00 PM EDT [facility] Name Value Range Interpretation Code Description Data Romi rce(s) Supporting Document(s) SARS-CoV-2 (COVID-19) RNA [Presence] in Respiratory specimen by LEON with probe detection Not Detected [facility] This lab was ordered by [facility] and reported by [facility]. ID Date Data Source [id number] 12/10/2020 01:26:06 PM EDT [facility] Name Value Range Interpretation Code Description Data Romi rce(s) Supporting Document(s) &PDF [facility] RZNTDz7fWqEVZzQw79/TACpcJESyx1CnAJtaKYd1KPanKLNcZ6UicBtqJKXDWrGgQ5UAUPAlBKOyQAPj waW WzV5cuvLWsbxOAo8Nnn2WzwXofwcmHNsQrTs6KKrWtBW3hbu1FWTDjXT9duf4WZOC2KC8AbXc5RWWpT6 UiDOFvCIBie8FnWN1NTR6elTsyZsH7CH9+FXqfIJR3iiGifH0GSUSyBIbhOdn7osX+V0Z62DEDYk5Sxy VKKyqqPQViICXROEAyCREGLJAOCPK2coSI/vIme7To [file] B7FbKxRpNkchNgU2PYjzKyDzAvEyBqMaVH0BBg5SXeL7XGF4nSRwUm8DLnX8YnDTJgSlHI8NIUt= ID Date Data Source [id number] 12/10/2020 01:27:46 PM EDT [facility] INFORMATIONPatient MRN Name Date of Age Gend*PT [id number] Adrian Andrews 1970 50 years M HOPPT Location Admission Date/Time Visit ID Attending Provider12/10/20 0918 --- Susan House MD([id number]) EPI ID CSN Admitting Provider [id number] Susan House MD([id number])Pre-Procedure History and Physical:H&P reviewed. The patient was examined and there are no changes to the H&P.Risks/benefits and alternatives explained to patient/ and or family who iswilling to proceed.Specific risks explained include but are not limited to: contrast reaction,contrast induced nephropathy, vascular problems including stroke, WI and evendeath.Signature: Susan House II, MDInterventional CardiologyDate: December 10, 2020Time: 1:26 PM Name Value Range Interpretation Code Description Data Romi rce(s) Supporting Document(s) ID Date Data Source [id number] 12/10/2020 09:50:00 AM EDT [facility] Name Value Range Interpretation Code Description Data Romi rce(s) Supporting Document(s) SARS coronavirus 2 RNA [Presence] in Res piratory specimen by LEON with probe detection NOT DETECTED [facility] This lab was reported by [facility]. ID Date Data Source [id number] 12/10/2020 11:03:31 AM EDT [facility] Name Value Range Interpretation Code Description Data Romi rce(s) Supporting Document(s) SPECIMEN DESCRIPTION Lab [facility] n[facility] of [facility] INFLUENZA A (NEG) [facility] INFLUENZA B (NEG) [facility] RSV (NEG) [facility] COMMENT [facility] THE U.[place]. FDA HAS MADE THIS TEST AVAILABL EUNDER AN EMERGENCY USE AUTHORIZATION(EUA) FOR THE DETECTION AND/OR DIAGNOSISOF THE VIRUS THAT CAUSES COVID-19.PERFORMED AT [address] [place] [address] COVID19 RESULT (NDET) [facility] THIS ASSAY AMPLIFIES AND DETECTSTHE TARG ET RNA USING REAL-TIME PCR.TESTING PERFORMED ON [employer] GENEXPERTNEGATIVE 2019_NCOV RT-PCR RESULTS DONOT PRECLUDE 2019_NCOV INFECTION ANDSHOULD NOT BE USED THE SOLE BASISFOR PATIENT MANAGEMENT DECISIONS. FIRST TEST [facility] EMPLOYED IN HLTHCARE [facility] SYMPTOMATIC [facility] CN Y DATE OF SYMPT ONSET [facility] HOSPITALIZED [facility] [place] ICU [facility] CONGREGATE CARE SET [facility] ID Date Data Source [id number] 12/10/2020 11:11:37 AM EDT [facility] Name Value Range Interpretation Code Description Data Romi rce(s) Supporting Document(s) SODIUM 140 mmol/L (136-145) [facility] POTASSIUM 4.4 mmol/L (3.6-5.2) [facility] CHLORIDE 108 mmol/L (100-108) [facility] CO2 27 mmol/L (22-31) [facility] ANION GAP 5 mmol/L (7-16) L [facility] UREA NITROGEN 7 mg/dL (7-24) [facility] CREATININE 1.40 mg/dL (0.80-1.30) H [facility] BUN/CREAT RATIO 5.0 RATIO (10.0-20.0) L [facility] GLUCOSE 79 mg/dL (70-99) [facility] CALCIUM 8.9 mg/dL (8.4-10.2) [facility] GFR 53 ml/min/1.73m2 (>59) L [facility] GFR ( AMER) >60 ml/min/1.73m2 (>59) [facility] GFR INTERPRETATION [facility] --NORMAL KIDNEY FUNCTION OR MILD DISEASE - GFR >OR= 60CHRONIC KIDNEY DISEASE - GFR 15 - 59RENAL FAILURE - GFR <15 Est. GFR calculation based on the MDRDstudy equation, which assumes a steadystate for creatinine. Est. GFR should notbe used for medication dosing. ID Date Data Source [id number] 12/10/2020 10:59:23 AM EDT [facility] Name Value Range Interpretation Code Description Data Romi rce(s) Supporting Document(s) WBC 5.2 10*3/uL (4.1-11.0) [facility] [place] RBC 3.93 10*6/uL (4.60-6.10) L [facility] HGB 12.3 g/dL (13.5-18.0) L [facility] HCT 35.5 % (41.0-53.0) L [facility] Y PERFORMED AT [address] [place] [address] N [place] [address] MCV 90.3 fL (80.0-95.0) [facility] MCH 31.2 pg (27.0-32.0) [facility] MCHC 34.5 g/dL (32.0-36.0) [facility] RDW 15.2 % (10.5-14.5) H [facility] PLT 205 10*3/uL (150-450) [facility] MPV 8.0 fL (7.1-10.7) [facility] ID Date Data Source LIPID PANEL (CARDIAC RISK) 11/05/2020 12:00:00 AM EST eCW1 ( [facility]) Name Value Range Interpretation Code Description Data Romi rce(s) Supporting Document(s) Cholesterol [Moles/volume] in Serum or Plasma 220 <200 CHOLESTEROL LEVEL eCW1 ([facility]) Triglyceride [Mass/volume] in Serum or Plasma by calculation 98 <150 TRIGLYCERIDES LEVEL [facility] ([facility]) 4.313 <5 CHOLESTEROL RISK RATIO [facility] ([facility]) Cholesterol in HDL [Moles/volume] in Serum or Plasma 51 >40 HDL CHOLESTEROL eCW1 ([facility]) 169 NON-HDL-C eCW1 ([facility]) Cholesterol in LDL [Mass/volume] in Serum or Plasma by calculation 149 <100 LDL CHOLESTEROL eCW1 ([facility]) ID Date Data Source FREE T4 & TSH PANEL 11/05/2020 12:00:00 AM EST eCW1 ([facility]) Name Value Range Interpretation Code Description Data Romi rce(s) Supporting Document(s) 0.725 0.358-3.740 THYROID STIMULATING HORM ONE eCW1 ([facility]) 0.95 0.76-1.46 FREE T4 eCW1 ([facility]) ID Date Data Source Comprehensive Metabolic Profile (CMP) 11/05/2020 12:00:00 AM EST eCW1 ([facility]) Name Value Range Interpretation Code Description Data Romi rce(s) Supporting Document(s) 73 70-100 GLUCOSE, FASTING eCW1 ([facility]) 7 7-18 BLOOD UREA NITROGEN eCW1 ([facility]) 1.28 0.70-1.30 CREATININE FOR GFR eCW1 ([facility]) 107 98-107 CHLORIDE LEVEL eCW1 ([facility]) > 60.0 >56 GLOMERULAR FILTRATION RATE eCW 1 ([facility]) 138 136-145 SODIUM LEVEL eCW1 ([facility]) 5.4 3.5-5.1 POTASSIUM SERUM eCW1 ([facility]) 14 7-37 AST/SGOT eCW1 ([facility]) 135 45-117 ALKALINE PHOSPHATASE eCW1 ([facility]) 9.3 8.5-10.1 CALCIUM LEVEL eCW1 ([facility]) 26 21-32 CARBON DIOXIDE LEVEL eCW1 ([facility]) 19 12-78 ALT/SGPT eCW1 ([facility]) 7.3 6.4-8.2 TOTAL PROTEIN eCW1 ([facility]) 3.7 3.2-5.2 ALBUMIN eCW1 ([facility]) 1.0 ALBUMIN/GLOBULIN RATIO eCW1 ([facility]) 0.5 0.2-1.0 BILIRUBIN,TOTAL eCW1 ([facility]) ID Date Data Source CBC - Complete Blood Count 11/05/2020 12:00:00 AM EST eCW1 ( [facility]) Name Value Range Interpretation Code Description Data Romi rce(s) Supporting Document(s) 4.30 4.30-6.10 eCW1 ([facility]) 42.0 42.0-52.0 eCW1 ([facility]) 5.6 4.0-10.0 eCW1 ([facility]) 12.7 13.5-17.5 eCW1 ([facility]) 29.5 27.0-33.0 eCW1 ([facility]) 97.7 80.0-96.0 eCW1 ([facility]) 30.2 32.0-36.5 eCW1 ([facility]) 14.6 11.5-14.5 eCW1 ([facility]) 221 150-450 eCW1 (Formerly [facility]) Procedure Social History Code Duration Value Status Description Data Source(s ) Smoking 06/26/2021 12:00:00 AM EDT Current Smoker completed Curre nt Smoker eCW1 ([facility]) Smoking 06/26/2021 12:00:00 AM EDT Current Smoker completed Curre nt Smoker eCW1 ([facility]) Smoking 06/25/2021 12:00:00 AM EDT Current Smoker completed Curre nt Smoker eCW1 ([facility]) Alcohol intake 04/26/2021 12:00:00 AM EDT Ex-drinker (finding) comp leted Ex- drinker (finding) [facility] Alcohol intake 04/23/2021 12:00:00 AM EDT Ex-drinker (finding) comp leted Ex- drinker (finding) [facility] Alcohol intake 04/14/2021 12:00:00 AM EDT Ex-drinker (finding) comp leted Ex- drinker (finding) [facility] Alcohol intake 04/07/2021 12:00:00 AM EDT Ex-drinker (finding) comp leted Ex- drinker (finding) [facility] Tobacco use and exposure 02/06/2021 12:00:00 AM EDT Never used co mpleted Never used [facility] Cigarette pack-years 02/06/2021 12:00:00 AM EDT UNK completed [facility] Cigarettes smoked current (pack per day) - Reported 02/07/20 12:00:00 AM EDT UNK completed [facility] Smoking 02/06/2021 12:00:00 AM EDT Current every day smoker co mpleted Current every day smoker [facility] Alcohol intake 02/06/2021 12:00:00 AM EDT Ex-drinker (finding) comp leted Ex- drinker (finding) [facility] Alcohol intake 01/06/2021 12:00:00 AM EDT Ex-drinker (finding) comp leted Ex- drinker (finding) [facility] Alcohol intake 12/10/2020 12:00:00 AM EDT Not Currently completed [facility] Cigarette pack-years 12/10/2020 12:00:00 AM EDT UNK completed [facility] Cigarettes smoked current (pack per day) - Reported 12/11/19 12:00:00 AM EDT UNK completed [facility] Smoking 12/10/2020 12:00:00 AM EDT Former smoker completed Former smoker [facility] Alcohol intake 12/09/2020 12:00:00 AM EDT Not Currently completed [facility] Cigarette pack-years 12/09/2020 12:00:00 AM EDT UNK completed [facility] Cigarettes smoked current (pack per day) - Reported 12/10/19 12:00:00 AM EDT UNK completed [facility] Smoking 12/09/2020 12:00:00 AM EDT Former smoker completed Former smoker [facility] Smoking 12/06/2020 12:00:00 AM EDT Current Smoker completed Curre nt Smoker eCW1 ([facility]) Smoking 12/06/2020 12:00:00 AM EDT Current Smoker completed Curre nt Smoker eCW1 ([facility]) Smoking 12/06/2020 12:00:00 AM EDT Current Smoker completed Curre nt Smoker eCW1 ([facility]) Smoking 12/06/2020 12:00:00 AM EDT Current Smoker completed Curre nt Smoker eCW1 ([facility]) Smoking 11/05/2020 12:00:00 AM EST Current Smoker completed Curre nt Smoker eCW1 ([facility]) Smoking 11/05/2020 12:00:00 AM EST Current Smoker completed Curre nt Smoker eCW1 ([facility]) Smoking 11/05/2020 12:00:00 AM EST Current Smoker completed Curre nt Smoker eCW1 ([facility]) Smoking 11/05/2020 12:00:00 AM EST Current Smoker completed Curre nt Smoker eCW1 ([facility]) 12/09/2020 12:00:00 AM EDT Cigarette Smoker completed Cig arette Smoker [facility] 12/09/2020 12:00:00 AM EDT Current smoker completed Curre nt smoker [facility] 12/09/2020 12:00:00 AM EDT Cigarette Smoker completed Cig arette Smoker [facility] 12/09/2020 12:00:00 AM EDT Current smoker completed Curre nt smoker [facility] Vital Signs ID Date Data Source UNK Name Value Range Interpretation Code Description Data Source(s) Body weight 138.0 [lb_av] 138.0 [lb_av] eCW1 ([facility]) Body height 69 [in_i] 69 [in_i] eCW1 ([facility]) Body mass index (BMI) [Ratio] 20.38 kg/m2 20.38 kg/m2 eCW1 ([facility]) Heart rate 117 /min 117 /min eCW1 ([facility]) Respiratory rate 18 /min 18 /min eCW1 ([facility]) Body temperature 98.0 [degF] 98.0 [degF] eCW1 ( [facility]) Systolic blood pressure 114 mm[Hg] 114 mm[Hg] e CW1 ([facility]) Diastolic blood pressure 64 mm[Hg] 64 mm[Hg] eCW1 ([facility]) Body weight 141.4 [lb_av] 141.4 [lb_av] eCW1 ([facility]) Diastolic blood pressure 60 mm[Hg] 60 mm[Hg] eCW1 ([facility]) Body height 69 [in_i] 69 [in_i] eCW1 ([facility]) Body mass index (BMI) [Ratio] 20.88 kg/m2 20.88 kg/m2 eCW1 ([facility]) Heart rate 130 /min 130 /min eCW1 ([facility]) Respiratory rate 18 /min 18 /min eCW1 ([facility]) Body temperature 98.7 [degF] 98.7 [degF] eCW1 ( [facility]) Systolic blood pressure 110 mm[Hg] 110 mm[Hg] e CW1 ([facility]) Systolic blood pressure 100 mm[Hg] 100 mm[Hg] [facility] Diastolic blood pressure 60 mm[Hg] 60 mm[Hg] [facility] Respiratory rate 16 /min 16 /min [facility] Body height 172.7 cm 172.7 cm [facility] Body weight 60.328 kg 60.328 kg [facility] Heart rate 72 /min 72 /min [facility] Body mass index (BMI) [Ratio] 20.22 kg/m2 20.22 kg/m2 [facility] Systolic blood pressure 101 mm[Hg] 101 mm[Hg] [facility] Diastolic blood pressure 71 mm[Hg] 71 mm[Hg] [facility] Heart rate 69 /min 69 /min [facility] Body temperature 36.[address] [facility] Respiratory rate 18 /min 18 /min [facility] Oxygen saturation in Arterial blood by Pulse oximetry 92 % 92 % [facility] Body weight 61.8 kg 61.8 kg [facility] Body mass index (BMI) [Ratio] 20.12 kg/m2 20.12 kg/m2 [facility] Body height 175.3 cm 175.3 cm [facility] Systolic blood pressure 113 mm[Hg] 113 mm[Hg] [facility] Diastolic blood pressure 64 mm[Hg] 64 mm[Hg] [facility] Heart rate 62 /min 62 /min [facility] Respiratory rate 18 /min 18 /min [facility] Oxygen saturation in Arterial blood by Pulse oximetry 97 % 97 % [facility] Systolic blood pressure 104 mm[Hg] 104 mm[Hg] [facility] Diastolic blood pressure 68 mm[Hg] 68 mm[Hg] [facility] Heart rate 67 /min 67 /min [facility] Respiratory rate 16 /min 16 /min [facility] Oxygen saturation in Arterial blood by Pulse oximetry 99 % 99 % [facility] room air Systolic blood pressure 136 mm[Hg] 136 mm[Hg] [facility] Diastolic blood pressure 90 mm[Hg] 90 mm[Hg] [facility] Heart rate 69 /min 69 /min [facility] Body height 175.3 cm 175.3 cm [facility] Body weight 64.864 kg 64.864 kg [facility] Body mass index (BMI) [Ratio] 21.12 kg/m2 21.12 kg/m2 [facility] Oxygen saturation in Arterial blood by Pulse oximetry 99 % 99 % [facility] Body height 69 [in_i] 69 [in_i] [facility] ([facility], ) 5'9" Heart rate 86 /min 86 /min [facility] ([facility]) Body surface area Derived from formula 1.80 m2 1.80 m2 [facility] ([facility]) [place] body weight 160 [lb_av] 160 [lb_av] MEDEN T ([facility]) Body weight 65.318 kg 65.318 kg [facility] ([facility]) Body weight 144.00 [lb_av] 144.00 [lb_av] MEDEN T ([facility]) Body mass index (BMI) [Ratio] 21.3 kg/m2 21.3 k g/m2 [facility] ([facility]) Diastolic blood pressure 70 mm[Hg] 70 mm[Hg] [facility] Systolic blood pressure 106 mm[Hg] 106 mm[Hg] [facility] Body weight 67.586 kg 67.586 kg [facility] Systolic blood pressure 136 mm[Hg] 136 mm[Hg] [facility] Diastolic blood pressure 80 mm[Hg] 80 mm[Hg] [facility] Heart rate 75 /min 75 /min [facility] Oxygen saturation in Arterial blood by Pulse oximetry 97 % 97 % [facility] Body height 175.3 cm 175.3 cm [facility] Body mass index (BMI) [Ratio] 22.00 kg/m2 22.00 kg/m2 [facility] Oxygen saturation in Arterial blood by Pulse oximetry 99 % 99 % [facility] Systolic blood pressure 120 mm[Hg] 120 mm[Hg] [facility] Diastolic blood pressure 72 mm[Hg] 72 mm[Hg] [facility] Heart rate 74 /min 74 /min [facility] Body temperature 36.[address] [facility] Respiratory rate 16 /min 16 /min [facility] Body height 175.3 cm 175.3 cm [facility] Body weight 65.318 kg 65.318 kg [facility] Body mass index (BMI) [Ratio] 21.27 kg/m2 21.27 kg/m2 [facility] Systolic blood pressure 152 mm[Hg] 152 mm[Hg] [facility] Diastolic blood pressure 100 mm[Hg] 100 mm[Hg] [facility] Heart rate 81 /min 81 /min [facility] Body height 175.3 cm 175.3 cm [facility] Body weight 65.499 kg 65.499 kg [facility] Body mass index (BMI) [Ratio] 21.32 kg/m2 21.32 kg/m2 [facility] Oxygen saturation in Arterial blood by Pulse oximetry 98 % 98 % [facility] Body weight 143 [lb_av] 143 [lb_av] [facility] ([facility]) Body height 69 [in_i] 69 [in_i] eCW1 ([facility]) Body mass index (BMI) [Ratio] 21.12 kg/m2 21.12 kg/m2 [facility] ([facility]) Heart rate 90 /min 90 /min W1 ([facility]) Respiratory rate 18 /min 18 /min W1 ([facility]) Body temperature 97.1 [degF] 97.1 [degF] W1 ( [facility]) Systolic blood pressure 144 mm[Hg] 144 mm[Hg] e CW1 ([facility]) Diastolic blood pressure 84 mm[Hg] 84 mm[Hg] eCW1 ([facility]) Systolic blood pressure 142 mm[Hg] 142 mm[Hg] M EDENT ([facility] ) Diastolic blood pressure 70 mm[Hg] 70 mm[Hg] MEDENT ([facility]) Body height 69 [in_i] 69 [in_i] [facility] 5'9" Body weight 143.25 [lb_av] 143.25 [lb_av] MEDEN T ([facility]) Body mass index (BMI) [Ratio] 21.2 kg/m2 21.2 k g/m2 [facility] ([facility]) [place] body weight 160 [lb_av] 160 [lb_av] MEDEN T ([facility]) Body weight 64.978 kg 64.978 kg [facility] ([facility]) Body surface area Derived from formula 1.79 m2 1.79 m2 [facility] ([facility]) Diastolic blood pressure 76 mm[Hg] 76 mm[Hg] eCW1 ([facility]) Heart rate 85 /min 85 /min eCW1 ([facility]) Respiratory rate 18 /min 18 /min eCW1 ([facility]) Body weight 148 [lb_av] 148 [lb_av] eCW1 ([facility]) Body height 69 [in_i] 69 [in_i] eCW1 ([facility]) Body temperature 97.6 [degF] 97.6 [degF] eCW1 ( [facility]) Body mass index (BMI) [Ratio] 21.85 kg/m2 21.85 kg/m2 eCW1 ([facility]) Systolic blood pressure 128 mm[Hg] 128 mm[Hg] e CW1 ([facility]) Patient Treatment Plan of Care Planned Activity Planned Date Details Description Data Source (s) Oxycodone Hydrochloride 15 MG Oral Tablet 06/26/2021 12:00:00 AM ED T eCW1 ([facility]) Acetaminophen 325 MG / Hydrocodone Bitartrate 10 MG Or al Tablet 06/26/2021 12:00:00 AM EDT eCW1 (Formerly [facility]) Oxycodone Hydrochloride 15 MG Oral Tablet 06/26/2021 12:00:00 AM ED T eCW1 ([facility]) Acetaminophen 325 MG / Hydrocodone Bitartrate 10 MG Or al Tablet 06/26/2021 12:00:00 AM EDT eCW1 (Formerly [facility]) Metoprolol Tartrate 25 MG Oral Tablet 06/19/2021 12:00:00 AM EDT eCW1 ([facility]) Folic Acid 1 MG Oral Tablet 04/24/2021 12:00:00 AM EDT [facility] Daily Hoa (THERAGRAN) per tablet 04/24/2021 12:00:00 AM EDT [facility] Aspirin 81 MG Delayed Release Oral Tablet 04/24/2021 12:00:00 AM ED T [facility] Warfarin Sodium 1 MG Oral Tablet 04/23/2021 12:00:00 AM EDT [facility] Metoprolol Tartrate 25 MG Oral Tablet 04/23/2021 12:00:00 AM EDT [facility] ferrous gluconate 324 MG Oral Tablet 04/23/2021 12:00:00 AM EDT [facility] Acetaminophen 325 MG Oral Tablet 04/23/2021 12:00:00 AM EDT [facility] Docusate Sodium 100 MG Oral Capsule 04/22/2021 09:00:00 PM EDT [facility] POLYETHYLENE GLYCOL 3350 142 MG/ML Oral Solution 04/22/2021 07:00:0 0 PM EDT [facility] ondansetron (ZOFRAN) injection 4 mg 04/22/2021 06:22:27 PM EDT [facility] potassium chloride SA (K-DUR,KLOR-CON) CR tablet 40 mE q 04/22/2021 06:22:27 PM EDT [facility] potassium chloride SA (K-DUR,KLOR-CON) CR tablet 20 mE q 04/22/2021 06:22:27 PM EDT [facility] potassium chloride SA (K-DUR,KLOR-CON) CR tablet 20 mE q 04/22/2021 06:22:27 PM EDT [facility] potassium chloride SA (K-DUR,KLOR-CON) CR tablet 10 mE q 04/22/2021 06:22:27 PM EDT [facility] 10 ML Atropine Sulfate 0.1 MG/ML Prefilled Syringe 04/22/2021 06 :22:26 PM EDT [facility] Aluminum Hydroxide 64 MG/ML Oral Suspension 04/22/2021 06:22:26 PM EDT [facility] Bisacodyl 10 MG Rectal Suppository 04/22/2021 06:22:26 PM EDT [facility] Nitroglycerin 0.4 MG Sublingual Tablet 04/22/2021 06:22:26 PM EDT [facility] 50 ML Magnesium Sulfate 40 MG/ML Injection 04/22/2021 06:22:26 PM E DT [facility] 50 ML Magnesium Sulfate 40 MG/ML Injection 04/22/2021 06:22:26 PM E DT [facility] 50 ML Magnesium Sulfate 40 MG/ML Injection 04/22/2021 06:22:26 PM E DT [facility] magnesium sulfate 1 g in dextrose 5% infusion (premix) 04/22/2021 06:22:26 PM EDT [facility] Albuterol 0.83 MG/ML Inhalant Solution 04/22/2021 06:22:25 PM EDT [facility] Patient on Coumadin during hospitalizati on. (To order Coumadin on discharge click the don t prescribe button and go to new orders on discharge section. Coumadin can be ordered there. Alternatively, reconcile the pre admission Coumadin dose if it appears on the list below) 04/17/2021 11:12:17 AM EDT [facility] ezetimibe 10 MG Oral Tablet 02/06/2021 12:00:00 AM EDT [facility] 24 HR Nicotine 0.292 MG/HR Transdermal Patch 02/06/2021 12:00:00 AM EDT [facility] Furosemide 20 MG Oral Tablet 02/06/2021 12:00:00 AM EDT [facility] Lisinopril 5 MG Oral Tablet 01/07/2021 12:00:00 AM EDT [facility] Aspirin 81 MG Delayed Release Oral Tablet 12/09/2020 12:00:00 AM ED T [facility] Furosemide 40 MG Oral Tablet 12/09/2020 12:00:00 AM EDT [facility] atorvastatin 80 MG Oral Tablet 12/06/2020 12:00:00 AM EDT eCW1 ([facility]) 12 HR Bupropion Hydrochloride 100 MG Extended Release Oral Tablet 12/06/2020 12:00:00 AM EDT eCW1 ([facility]) atorvastatin 80 MG Oral Tablet 12/06/2020 12:00:00 AM EDT eCW1 ([facility]) 12 HR Bupropion Hydrochloride 100 MG Extended Release Oral Tablet 12/06/2020 12:00:00 AM EDT eCW1 ([facility]) albuterol (PROVENTIL HFA;VENTOLIN HFA) 108 (90 Base) M CG/ACT inhaler 12/06/2020 12:00:00 AM EDT [facility] atorvastatin 80 MG Oral Tablet 12/06/2020 12:00:00 AM EDT [facility] gabapentin 800 MG Oral Tablet 12/06/2020 12:00:00 AM EDT [facility] Sumatriptan 100 MG Oral Tablet 12/06/2020 12:00:00 AM EDT [facility] atorvastatin 80 MG Oral Tablet 12/06/2020 12:00:00 AM EDT eCW1 ([facility]) 12 HR Bupropion Hydrochloride 100 MG Extended Release Oral Tablet 12/06/2020 12:00:00 AM EDT eCW1 ([facility]) 12 HR Bupropion Hydrochloride 100 MG Extended Release Oral Tablet 12/06/2020 12:00:00 AM EDT [facility] atorvastatin 80 MG Oral Tablet 12/06/2020 12:00:00 AM EDT eCW1 ([facility]) 12 HR Bupropion Hydrochloride 100 MG Extended Release Oral Tablet 12/06/2020 12:00:00 AM EDT eCW1 ([facility]) Amitriptyline Hydrochloride 100 MG Oral Tablet 11/25/2020 12:00:00 AM EDT [facility] 168 HR Buprenorphine 0.02 MG/HR Transdermal Patch 11/21/2020 12: 00:00 AM EST [facility] 28 ACTUAT Fluticasone propionate 0.1 MG/ACTUAT Dry Pow tasneem Inhaler [Flovent] 11/06/2020 12:00:00 AM EST [facility] SPIRIVA RESPIMAT 2.5 MCG/ACT AERS 11/06/2020 12:00:00 AM EST [facility] 28 ACTUAT tiotropium 0.0025 MG/ACTUAT Metered Dose Inh aler [Spiriva] 11/05/2020 12:00:00 AM EST eCW1 ([facility]) 28 ACTUAT Fluticasone propionate 0.1 MG/ACTUAT Dry Pow tasneem Inhaler [Flovent] 11/05/2020 12:00:00 AM EST eCW1 ([facility]) Aspirin 81 MG Delayed Release Oral Tablet 11/05/2020 12:00:00 AM ES T eCW1 ([facility]) 28 ACTUAT tiotropium 0.0025 MG/ACTUAT Metered Dose Inh aler [Spiriva] 11/05/2020 12:00:00 AM EST eCW1 ([facility]) 28 ACTUAT Fluticasone propionate 0.1 MG/ACTUAT Dry Pow tasneem Inhaler [Flovent] 11/05/2020 12:00:00 AM EST eCW1 ([facility]) Aspirin 81 MG Delayed Release Oral Tablet 11/05/2020 12:00:00 AM ES T eCW1 ([facility]) 28 ACTUAT tiotropium 0.0025 MG/ACTUAT Metered Dose Inh aler [Spiriva] 11/05/2020 12:00:00 AM EST eCW1 ([facility]) 28 ACTUAT Fluticasone propionate 0.1 MG/ACTUAT Dry Pow tasneem Inhaler [Flovent] 11/05/2020 12:00:00 AM EST eCW1 ([facility]) Aspirin 81 MG Delayed Release Oral Tablet 11/05/2020 12:00:00 AM ES T eCW1 ([facility]) 28 ACTUAT tiotropium 0.0025 MG/ACTUAT Metered Dose Inh aler [Spiriva] 11/05/2020 12:00:00 AM EST eCW1 ([facility]) 28 ACTUAT Fluticasone propionate 0.1 MG/ACTUAT Dry Pow tasneem Inhaler [Flovent] 11/05/2020 12:00:00 AM EST eCW1 ([facility]) Aspirin 81 MG Delayed Release Oral Tablet 11/05/2020 12:00:00 AM ES T eCW1 ([facility]) Hydrocodone Bitartrate 10 MG / Ibuprofen 200 MG Oral Tablet [facility] Ibuprofen 200 MG Oral Tablet [facility]
[2021-07-08 18:23] LABS: ALBUMIN 4.2 GM/DL (3.2-5.2); ALT/SGPT 38 U/L (12-78); BILIRUBIN,DIRECT < 0.1 MG/DL (0.0-0.2); BILIRUBIN,TOTAL 0.5 MG/DL (0.2-1.0); BLOOD UREA NITROGEN 16 MG/DL (7-18); CARBON DIOXIDE LEVEL 25 MEQ/L (21-32); CHLORIDE LEVEL 110 MEQ/L (98-107); CREATININE FOR GFR 1.28 MG/DL (0.70-1.30); GLOMERULAR FILTRATION RATE > 60.0 (>56); GLUCOSE, FASTING 114 MG/DL (70-100); LIPASE 180 U/L (73-393); POTASSIUM SERUM 5.5 MEQ/L (3.5-5.1); SODIUM LEVEL 136 MEQ/L (136-145)
[2021-07-08 18:24] LABS: INR 1.17; PARTIAL THROMBOPLASTIN TIME 37.1 SECONDS (25.9-37.0); PROTHROMBIN TIME 15.3 SECONDS (12.7-14.5)
--- NOTE | 2021-07-08 18:27 | REP ---
INDICATION: CHEST PAIN. COMPARISON: Portable chest, 10/26/2019 TECHNIQUE: Upright AP portable chest image was obtained. FINDINGS: There is again noted an intrathecal stimulator centered at the T8-9 level. There has been interval dual lead pacemaker placement and, apparent coronary artery bypass graft surgery. The heart size is normal. The lungs are clear. The upper abdominal bowel gas pattern is normal. There are no bony abnormalities of the chest. IMPRESSION: 1. Status post interval CABG surgery and pacemaker placement. 2. No evidence of acute cardiopulmonary pathology. 3. Other findings as noted. <Electronically signed by Matt Zaidi > 07/08/21 [id number]
[2021-07-08] MEDS ORDERED: METOPROLOL TART 25 MG TABLET PO ONE (18:30)
[2021-07-08] MEDS: METOPROLOL 5 MG/5 ML VIAL IV SCH ×3 (18:58→19:36)
[2021-07-08] MEDS ORDERED: AMITRIPTYLINE 50 MG TAB PO STA (19:26)
[2021-07-08 19:31] LABS: CK-MB VALUE MASS 2.1 NG/ML (<3.6); CPK CREATINE PHOSPHOKINASE 101 U/L (39-308); MB/CK RELATIVE INDEX 2.08 (< OR =4); TROPONIN I 0.03 NG/ML (< 0.10)
[2021-07-08] MEDS ORDERED: AMIODARONE HCL 150 MG in IV 1 EA IV STA (19:41)
[2021-07-08] MEDS ORDERED: CARD40TA PO (20:06)
[2021-07-08 20:17] VITALS: BP 138/81
[2021-07-08 20:19] VITALS: BP 138/81
[2021-07-08 21:47] LABS: CK-MB VALUE MASS 1.9 NG/ML (<3.6); MB/CK RELATIVE INDEX 3.52 (< OR =4); TROPONIN I 0.04 NG/ML (< 0.10)
[2021-07-09] MEDS ORDERED: OXYC-1 PO (13:58)
[2021-07-09] MEDS ORDERED: WARF4TAB52 PO (13:58)
[2021-07-09] MEDS ORDERED: GABA800T4 PO (13:58)
[2021-07-09] MEDS ORDERED: HYDR-3719 PO (13:58)
[2021-07-09] MEDS ORDERED: SUMA100T2 PO (13:58)
[2021-07-09] MEDS ORDERED: FERR32TA PO (15:03)
[2021-07-09] MEDS ORDERED: CARD40TA PO (17:19)
[2021-07-09] MEDS ORDERED: FERR325T3 PO (17:19)
--- NOTE | 2021-07-10 19:56 | ECGEPIP ---
[facility] - ED Test Date: 2021-07-08 Pat Name: PRINCESS MONTES Department: Room: - Gender: Male Manager Pe: REFUGIO : 1970 Requested By: Jese Hedrick Order Number: [id number] Reading MD: Noelle Whitmore Measurements Intervals [place] Rate: 146 P: 68 [place]: QRS: 66 QRSD: 76 T: 140 QT: 136 QTc: 211 Interpretive Statements Atrial flutter with 2:1 AV conduction Anterior infarct, possible, clinical correlation 01/29/21 sinus rhythm Electronically Signed on 07-10-2021 19:56:33 EDT by Noelle Whitmore
== END 2021-07-08 20:35 | disposition home or self-care (01) ==
LOC: M ED 17:16
DX: I48.92 Unspecified atrial flutter (principal); J44.9 Chronic obstructive pulmonary disease, unspecified; Z79.899 Other long term (current) drug therapy; Z79.01 Long term (current) use of anticoagulants; Z95.0 Presence of cardiac pacemaker; Z95.1 Presence of aortocoronary bypass graft; Z88.5 Allergy status to narcotic agent; Z87.891 Personal history of nicotine dependence

== ENCOUNTER 2021-07-09 13:47 | Inpatient (IN) | payer OTHER ==
[~2021-07-09] VITALS: Ht 175.3 cm; Wt 98.5 kg
[~2021-07-09 13:47] MED LIST changes: +CARD40TA PO; +METO1TAB87 PO
--- OUTSIDE RECORDS SUMMARY | 2021-07-09 13:57 | CCD ---
Author Author [facility] Organization [facility] Address Unknown Phone Unavailable Care Team Providers Care Bilingual Call Center Representative Name Role Phone [place], Chandler Unavailable Unavailable [place], Chandler Unavailable Unavailable [place], Chandler Unavailable Unavailable [place], Chandler Unavailable Unavailable [place], Chandler Unavailable Unavailable [place], Chandler Unavailable Unavailable [place], Chandler Unavailable Unavailable [place], Chandler Unavailable Unavailable [place], Chandler Unavailable Unavailable [place], Chandler Unavailable Unavailable [place], Chandler Unavailable Unavailable [place], Chandler Unavailable Unavailable [place], Chandler Unavailable Unavailable [place], Chandler Unavailable Unavailable [place], Chandler Unavailable Unavailable [place], Chandler Unavailable Unavailable [place], Chandler Unavailable Unavailable [place], Chandler Unavailable Unavailable [place], Chandler Unavailable Unavailable [place], Chandler Unavailable Unavailable [place], Chandler Unavailable Unavailable [place], Chandler Unavailable Unavailable [place], Chandler Unavailable Unavailable [place], Chandler Unavailable Unavailable [place], Chandler Unavailable Unavailable [place], Chandler Unavailable Unavailable [place], Chandler Unavailable Unavailable [place], Chandler Unavailable Unavailable [place], Chandler Unavailable Unavailable [place], Chandler Unavailable Unavailable [place], Chandler Unavailable Unavailable [place], Chandler Unavailable Unavailable [place], Chandler Unavailable Unavailable [place], Chandler Unavailable Unavailable [place], Chandler Unavailable Unavailable [place], Chandler Unavailable Unavailable [place], Chandler Unavailable Unavailable [place], Chandler Unavailable Unavailable [place], Chandler Unavailable Unavailable [place], Chandler Unavailable Unavailable [place], Chandler Unavailable Unavailable [place], Chandler Unavailable Unavailable [place], Chandler Unavailable Unavailable [place], Chandler Unavailable Unavailable [place], Chandler Unavailable Unavailable [place], Chandler Unavailable Unavailable [place], Chandler Unavailable Unavailable [place], Chandler Unavailable Unavailable [place], Chandler Unavailable Unavailable [place], Chandler Unavailable Unavailable [place], Chandler Unavailable Unavailable [place], Chandler Unavailable Unavailable [place], Chandler Unavailable Unavailable [place], Chandler Unavailable Unavailable [place], Chandler Unavailable Unavailable [place], Chandler Unavailable Unavailable [place], Chandler Unavailable Unavailable [place], Chadnler Unavailable Unavailable [place], Chandler Unavailable Unavailable [place], Chandler Unavailable Unavailable [place], Chandler Unavailable Unavailable LATOYA HOUSE MD Unavailable [...] HOUSE MD Unavailable Unavailable Detor, M Keily MILITARY SOURCE OPERATIONS SPECIALIST Unavailable Unavailable Detor, M Keily MILITARY SOURCE OPERATIONS SPECIALIST Unavailable Unavailable Detor, M Keily MILITARY SOURCE OPERATIONS SPECIALIST Unavailable Unavailable Detor, M Keily MILITARY SOURCE OPERATIONS SPECIALIST Unavailable Unavailable Detor, M Keily MILITARY SOURCE OPERATIONS SPECIALIST Unavailable Unavailable Detor, M Keily MILITARY SOURCE OPERATIONS SPECIALIST Unavailable Unavailable Detor, M Keily MILITARY SOURCE OPERATIONS SPECIALIST Unavailable Unavailable Detor, M Keily MILITARY SOURCE OPERATIONS SPECIALIST Unavailable Unavailable Detor, M Keily MILITARY SOURCE OPERATIONS SPECIALIST Unavailable Unavailable Detor, M Keily MILITARY SOURCE OPERATIONS SPECIALIST Unavailable Unavailable Detor, M Keily MILITARY SOURCE OPERATIONS SPECIALIST Unavailable Unavailable Detor, M Keily MILITARY SOURCE OPERATIONS SPECIALIST Unavailable Unavailable Detor, M Keily MILITARY SOURCE OPERATIONS SPECIALIST Unavailable Unavailable Detor, M Keily MILITARY SOURCE OPERATIONS SPECIALIST Unavailable Unavailable Detor, M Keily MILITARY SOURCE OPERATIONS SPECIALIST Unavailable Unavailable Detor, M Keily MILITARY SOURCE OPERATIONS SPECIALIST Unavailable Unavailable Detor, M Keily MILITARY SOURCE OPERATIONS SPECIALIST Unavailable Unavailable Detor, M Keily MILITARY SOURCE OPERATIONS SPECIALIST Unavailable Unavailable Detor, M Keily MILITARY SOURCE OPERATIONS SPECIALIST Unavailable Unavailable Detor, M Keily MILITARY SOURCE OPERATIONS SPECIALIST Unavailable Unavailable Detor, M Keily MILITARY SOURCE OPERATIONS SPECIALIST Unavailable Unavailable Detor, M Keily MILITARY SOURCE OPERATIONS SPECIALIST Unavailable Unavailable Detor, M Keily MILITARY SOURCE OPERATIONS SPECIALIST Unavailable Unavailable Detor, M Keily MILITARY SOURCE OPERATIONS SPECIALIST Unavailable Unavailable Detor, M Keily MILITARY SOURCE OPERATIONS SPECIALIST Unavailable Unavailable Detor, M Keily MILITARY SOURCE OPERATIONS SPECIALIST Unavailable Unavailable Detor, M Keily MILITARY SOURCE OPERATIONS SPECIALIST Unavailable Unavailable Detor, M Keily MILITARY SOURCE OPERATIONS SPECIALIST Unavailable Unavailable Detor, M Keily MILITARY SOURCE OPERATIONS SPECIALIST Unavailable Unavailable Detor, M Keily MILITARY SOURCE OPERATIONS SPECIALIST Unavailable Unavailable Detor, M Keily MILITARY SOURCE OPERATIONS SPECIALIST Unavailable Unavailable Detor, M Keily MILITARY SOURCE OPERATIONS SPECIALIST Unavailable Unavailable Detor, M Keily MILITARY SOURCE OPERATIONS SPECIALIST Unavailable Unavailable Detor, M Keily MILITARY SOURCE OPERATIONS SPECIALIST Unavailable Unavailable Detor, M Keily MILITARY SOURCE OPERATIONS SPECIALIST Unavailable Unavailable Detor, M Keily MILITARY SOURCE OPERATIONS SPECIALIST Unavailable Unavailable Detor, M Keily MILITARY SOURCE OPERATIONS SPECIALIST Unavailable Unavailable Simeon CORRIGAN Unavailable Unavailable [place], V JENNIFER PA-C Unavailable Unavailable Laurence, V JENNIFER PA-C Unavailable Unavailable [place], V JENNIFER PA-C Unavailable Unavailable [place], V JENNIFER PA-C Unavailable Unavailable [place], V JENNIFER PA-C Unavailable Unavailable [place], V JENNIFER PA-C Unavailable Unavailable [place], V JENNIFER PA-C Unavailable Unavailable [place], V JENNIFER PA-C Unavailable Unavailable [place], V JENNIFER PA-C Unavailable Unavailable [place], V JENNIFER PA-C Unavailable Unavailable [place], V JENNIFER PA-C Unavailable Unavailable Laurence, V JENNIFER PA-C Unavailable Unavailable [place], V JENNIFER PA-C Unavailable Unavailable Laurence, V JENNIFER PA-C Unavailable Unavailable Godwin, N Azalea SHIP SURVEYOR Unavailable Unavailable [place], N Azalea SHIP SURVEYOR Unavailable Unavailable Godwin, N Azalea SHIP SURVEYOR Unavailable Unavailable [place], N Azalea SHIP SURVEYOR Unavailable Unavailable [place], N Azalea SHIP SURVEYOR Unavailable Unavailable [place], N Azalea SHIP SURVEYOR Unavailable Unavailable Godwin, N Azalea SHIP SURVEYOR Unavailable Unavailable [place], N Azalea SHIP SURVEYOR Unavailable Unavailable [place], N Azalea SHIP SURVEYOR Unavailable Unavailable Godwin, N Azalea SHIP SURVEYOR Unavailable Unavailable Godwin, N Azalea SHIP SURVEYOR Unavailable Unavailable [place], N Azalea SHIP SURVEYOR Unavailable Unavailable [place], N Azalea SHIP SURVEYOR Unavailable Unavailable [place], N Azalea SHIP SURVEYOR Unavailable Unavailable [place], N Azalea SHIP SURVEYOR Unavailable Unavailable Godwin, N Azalea SHIP SURVEYOR Unavailable Unavailable [place], N Azalea SHIP SURVEYOR Unavailable Unavailable Godwin, N Azalea SHIP SURVEYOR Unavailable Unavailable [place], N Azalea SHIP SURVEYOR Unavailable Unavailable [place], N Azalea SHIP SURVEYOR Unavailable Unavailable [place], N Azalea SHIP SURVEYOR Unavailable Unavailable [place], N Azalea SHIP SURVEYOR Unavailable Unavailable Godwin, N Azalea SHIP SURVEYOR Unavailable Unavailable Godwin, N Azalea SHIP SURVEYOR Unavailable Unavailable [place], N Azalea SHIP SURVEYOR Unavailable Unavailable [place], N Azalea SHIP SURVEYOR Unavailable Unavailable [place], N Azalea SHIP SURVEYOR Unavailable Unavailable [place], N Azalea SHIP SURVEYOR Unavailable Unavailable [place], N Azalea SHIP SURVEYOR Unavailable Unavailable Godwin, N Azalea SHIP SURVEYOR Unavailable Unavailable Godwin, N Azalea SHIP SURVEYOR Unavailable Unavailable Godwin, N Azalea SHIP SURVEYOR Unavailable Unavailable [place], N Azalea SHIP SURVEYOR Unavailable Unavailable Cooper, L Virginia RPA Unavailable [...] Unavailable Cooper, L Virginia RPA Unavailable Unavailable [place], Chandler Unavailable Unavailable [place], Chandler Unavailable Unavailable [place], Chandler Unavailable Unavailable [place], Chandler Unavailable Unavailable [place], Chandler Unavailable Unavailable [place], Chandler Unavailable Unavailable [place], [place] Unavailable Unavailable [place], Chandler Unavailable Unavailable [place], [place] Unavailable Unavailable [place], Chandler Unavailable Unavailable [place], [place] Unavailable Unavailable [place], Chandler Unavailable Unavailable [place], [place] Unavailable Unavailable [place], [place] Unavailable Unavailable [place], Chandler Unavailable Unavailable [place], Chandler Unavailable Unavailable [place], Chandler Unavailable Unavailable [place], Chandler Unavailable Unavailable [place], Chandler Unavailable Unavailable [place], Chandler Unavailable Unavailable [place], Chandler Unavailable Unavailable [place], Chandler Unavailable Unavailable [place], Chandler Unavailable Unavailable [place], Chandler Unavailable Unavailable [place], Chandler Unavailable Unavailable [place], [place] Unavailable Unavailable [place], Chandler Unavailable Unavailable [place], [place] Unavailable Unavailable [place], Chandler Unavailable Unavailable [place], [place] Unavailable Unavailable [place], Chandler Unavailable Unavailable [place], [place] Unavailable Unavailable [place], Chandler Unavailable Unavailable [place], Chandler Unavailable Unavailable [place], Chandler Unavailable Unavailable [place], Chandler Unavailable Unavailable [place], Chandler Unavailable Unavailable [place], Chandler Unavailable Unavailable [place], [place] Unavailable Unavailable [place], Chandler Unavailable Unavailable [place], Chandler Unavailable Unavailable [place], Chandler Unavailable Unavailable [place], Chandler Unavailable Unavailable [place], Chandler Unavailable Unavailable [place], Chandler Unavailable Unavailable [place], Chandler Unavailable Unavailable [place], Chandler Unavailable Unavailable [place], Chandler Unavailable Unavailable [place], Chandler Unavailable Unavailable [place], Chandler Unavailable Unavailable [place], Chandler Unavailable Unavailable [place], Chandler Unavailable Unavailable [place], Chandler Unavailable Unavailable [place], [place] Unavailable Unavailable [place], Chandler Unavailable Unavailable [place], Chandler Unavailable Unavailable [place], Chandler Unavailable Unavailable [place], [place] Unavailable Unavailable [place], Chandler Unavailable Unavailable [place], Chandler Unavailable Unavailable [place], Chandler Unavailable Unavailable WetterhahnMauricio MD Unavailable Unavailable [...] MD Unavailable Unavailable WetterhahnMauricio MD Unavailable Unavailable WetterhahnMauricoi MD Unavailable Unavailable WetterhahnMauricio MD Unavailable Unavailable [...] Unavailable Unavailable Toby Parish MD Unavailable Unavailable Slezka, Vojtech MD Unavailable Unavailable Toby Parish MD Unavailable [...] is protected by Article 27-F of the [facility] Public Health law. If you continue you may have access to information: Regarding HIV / AIDS; Provided by facilities licensed or operated by the [facility] Office of Mental Health; or Provided by the [facility] Office for People With Developmental Disabilities. If such information is present, then the following [facility] mandated warning applies: This information has [...] law may result in a fine or chcf sentence or both. A general authorization for the release of medical or other information is NOT sufficient authorization for further disc losure. Allergies and Adverse Reactions Type Description Substance Reaction Status Data Source(s ) Propensity to adverse reactions CODEINE Codeine Rash Medium Ac tive [facility] Medium Encounters Encounter Providers Location Date Indications Data Source(s ) Outpatient Attender: JENNIFER BETH.KENNY-SJP.KENNY 10:55:35 AM EDT [facility] Outpatient Attender: JENNIFER LAMAR-SJP.KENNY 12:00:00 AM EDT [facility] Outpatient [address] [place] [address] 06/26/2021 12:00:00 AM EDT eCW1 ([facility]) Outpatient SJP.CT-SJP.SYR 06/20/2021 01:01:19 PM EDT [facility] Unknown [address] [facility] [place] [address] 06/20/2021 12:00:00 AM EDT eCW1 ([facility]) Outpatient [address] [facility] [place] [address] 06/19/2021 12:00:00 AM EDT eCW1 ([facility]) Unknown [address] [facility] [place] [address] 05/28/2021 12:00:00 AM EDT eCW1 ([facility]) BF-BF 05/21/2021 06:14:57 PM EDT [facility] Outpatient SJP.KENNY-SJP.KENNY 05/21/2021 12:00:00 AM EDT [facility] Unknown [address] [facility] [place] [address] 05/14/2021 12:00:00 AM EDT eCW1 ([facility]) Outpatient Referrer: Toby MOJICACT-SJP.SYR 04/14 11:34:18 AM EDT [facility] Outpatient Attender: Azalea HUFFP.KENNY-SJP.KENNY 021 12:00:00 AM EDT - 04/28/2021 03:49:03 PM EDT [facility] Outpatient SJPMaria CKENNY-SJP.KENNY 04/28/2021 12:00:00 AM EDT [facility] Inpatient Admitter: Chandler CorriganReferrer: ROWAN Padilla MD ES1-SJ.ANES 04/17/2021 07:21:51 AM EDT [facility] Inpatient Attender: Chandler CorriganAdmitter: Chandler Corrigan ES1 -D4CVS 04/17/2021 05:18:00 AM EDT - 04/23/2021 05:58:00 PM EDT [facility] Patient discharged. Outpatient Attender: Chandler CorriganReferrer: Chandler Corrigan ES1 -SJ.PL 04/14/2021 09:23:36 AM EDT - 04/14/2021 11:59:00 PM EDT [facility] Patient discharged. Outpatient Attender: Chandler CorriganReferrer: Chanlder Corrigan MOB -MOB.PAT 04/14/2021 08:39:44 AM EDT - 04/14/2021 10:06:57 AM EDT [facility] Outpatient Referrer: FAITH CORRIGAN MOB-MOB.PAT 04/14/2021 08:25:17 AM EDT - 04/14/2021 08:25:24 AM EDT [facility] Outpatient Referrer: Keily Block MILITARY SOURCE OPERATIONS SPECIALIST 04/08/2021 08:33:19 A M EDT [facility] Outpatient Attender: Chandler KIMBALL.CSA 12:00:00 AM EDT - 04/07/2021 03:20:13 [facility] [address] [place] [address] 03/04/2021 12:00:00 AM EDT eCW1 ([facility]) Outpatient WILLARD-KIRIT.KENNY 02/07/2021 11:51:01 AM EDT [facility] Outpatient Attender: JENNIFER LAMAR-SJErin.KENNY 01:22:41 PM EDT - 02/06/2021 02:53:39 PM EDT [facility] Outpatient Attender: Virginia Shi/Edis/Kings/Robel fernandez 01/15/2021 01:00:00 PM EDT [facility] ([facility]) Outpatient Attender: JENNIFER BETH.KENNY-SJP.KENNY 11/2020 01:57:32 PM EDT - 01/13/2021 03:27:27 PM EDT [facility] Outpatient Attender: JENNIFER Kenferrer: Mercedes Zamudio MD SJP.KENNY-SJP.KENNY 01/06/2021 02:29:51 PM EDT - 01/06/2021 03:53:36 PM EDT [facility] Outpatient Attender: SUSAN HOUSE MDAdm itter: SUSAN HOUSE MDReferrer: Toby Parish MD ES1-SJ.CVAU 12/10/2020 09:18:00 AM EDT - 12/10/2020 04:58:00 PM EDT [facility] Patient discharged. Outpatient Attender: Toby Parish MD SJP.KENNY-SJP.KENNY 11/12 12:00:00 AM EDT - 12/09/2020 11:50:14 AM EDT [facility] Outpatient [address] [facility] [facility] [address] [place] [address] 12/06/2020 12:00:00 AM EDT eCW1 ([facility]) Outpatient Attender: [place] Shi/Edis/Kings/Robel fernandez 11/26/2020 01:45:00 PM EDT [facility] ([facility] ) Unknown [address] [facility] [facility] [place] [place] [address] 11/08/2020 12:00:00 AM EST eCW1 ([facility]) Unknown [address] [facility] [place] [address] 11/05/2020 12:00:00 AM EST eCW1 ([facility]) Outpatient [address] [facility] [place] [address] 11/05/2020 12:00:00 AM EST eCW1 ([facility]) Unknown [address] [facility] [place] [place] [address] 11/04/2020 12:00:00 AM EST eCW1 ([facility]) Unknown [address] [facility] [place] [address] 06/25/2020 12:00:00 AM EDT eCW1 ([facility]) Immunizations Vaccine Date Status Description Data Source(s) 12/18/2020 12:00:00 AM EDT completed <td I D="[id number]">Covid-19 (Moderna)</td><td>12/18/2020, 11/12/2020</td><td></td> [facility] COVID-19 VACCINE Moderna 12/18/2020 12:00:00 AM EDT completed NYSIIS Vaccine Series Complete: YESThis Data wa s Submitted to [facility] Via [employer] 11/12/2020 12:00:00 AM EST completed <td I D="[id number]">Covid-19 (Moderna)</td><td>12/18/2020, 11/12/2020</td><td></td> [facility] COVID-19 VACCINE Moderna 11/12/2020 12:00:00 AM EST completed NYSIIS Vaccine Series Complete: NOThis Data was Submitted to [facility] Via [employer] Medications Medication Brand Name Start Date Product [...] activ e oxyCODONE HCl 15 MG eCW1 ([facility]) Acetaminophen 325 MG / Hydrocodone Robinson trate 10 MG Oral Tablet HYDROcodone- Acetaminophen 10-325 MG HYDROcodone-Acetaminophen 10-325 MG 06/26/2021 12:00:0 0 AM EDT 1.0 {tablet_as_needed} active HYDROcodone-Acetaminophen 10- 325 MG eCW1 ([facility]) Oxycodone Hydrochloride 15 MG Oral Tablet oxyCODONE HC l 15 MG oxyCODONE HCl 15 MG 06/26/2021 12:00:00 AM EDT 1.0 {tablet} activ e oxyCODONE HCl 15 MG eCW1 ([facility]) Acetaminophen 325 MG / Hydrocodone Robinson trate 10 MG Oral Tablet HYDROcodone- Acetaminophen 10-325 MG HYDROcodone-Acetaminophen 10-325 MG 06/26/2021 12:00:0 0 AM EDT 1.0 {tablet_as_needed} active HYDROcodone-Acetaminophen 10- 325 MG eCW1 ([facility]) 25 mg 06/20/2021 12:00:00 AM EDT tablet 60 TAKE ONE TABLET BY MOUTH TWICE A DAY TAKE ONE TABLET BY MOUTH TWICE A DAY SOLD: 06/24/2021 [facility] Metoprolol Tartrate 25 MG Oral Tablet Metoprolol Tartrate 25 MG 06/19/2021 12:00:00 AM EDT 1.0 {tablet_with_food} active Metoprolol Tartrate 25 MG eCW1 ([facility]) Metoprolol Tartrate 25 MG Oral Tablet Metoprolol Tartrate 25 MG 06/19/2021 12:00:00 AM EDT 1.0 {tablet_with_food} active Metoprolol Tartrate 25 MG eCW1 ([facility]) Metoprolol Tartrate 25 MG Oral Tablet Metoprolol Tartrate 25 MG 06/19/2021 12:00:00 AM EDT 1.0 {tablet_with_food} active Metoprolol Tartrate 25 MG eCW1 ([facility]) 1 mg 06/13/2021 12:00:00 AM EDT tablet [...] IN TWO HOURS IF NEEDED SOLD: 05/18/2021 [facility] 100 mg 05/15/2021 12:00:00 AM EDT [...] tablet (81 mg total) by mouth daily [facility] Daily Hoa (THERAGRAN) per tablet [id number] 04/24/2021 12:00:00 AM EDT 1 {tbl} Oral active Take 1 tablet by mouth d aily [facility] Folic Acid 1 MG Oral Tablet folic acid (FOLVITE) 1 MG tablet folic acid (FOLVITE) 1 MG tablet 04/24/2021 12:00:00 AM EDT 1 mg Oral active Take 1 tablet (1 mg total) by mouth daily [facility] Warfarin Sodium 2 MG Oral Tablet warfarin (COUMADIN) t ablet 1 mg warfarin (COUMADIN) tablet 1 mg 04/23/2021 05:00:00 PM EDT 1 mg Oral completed 1 mg, Oral, [id number], First dose on Wed04/23/21 at 1700, For 1 dose
For administration and preparation considerations, refer to Hazardous Drugs in the Workplace Policy on Intranet.
[facility] Medication administered onsite Metoprolol Tartrate 25 MG Oral Tablet me toprolol tartrate (LOPRESSOR) tablet 12.5 mg metoprolol tartrate (LOPRESSOR) tablet 12.5 mg 11:00:00 AM EDT 12.5 mg Oral active 12.5 mg, Oral, 2 times daily, First dose on Wed04/23/21 at 1100
Hold for SBP less than 100, HR less than 60
[facility] Medication administered onsite Daily Hoa (THERAGRAN) 1 tablet 12210-382-05 04/23/2021 09:00:00 AM EDT 1 {tbl} Oral active 1 tablet, Oral, Daily, First dose on Wed04/23/21 at 0900, Post-op [facility] Medication administered onsite Folic Acid 1 MG Oral Tablet folic acid (FOLVITE) table t 1 mg folic acid (FOLVITE) tablet 1 mg 04/23/2021 09:00:00 AM EDT 1 mg Oral active 1 mg, Oral, Daily, First dose on Wed04/23/21 at 0900, Post-op [facility] Medication administered onsite Warfarin Sodium 1 MG Oral Tablet warfarin (COUMADIN) 1 MG tablet warfarin (COUMADIN) 1 MG tablet 04/23/2021 12:00:00 AM EDT 1 mg Oral active Take 1 tablet (1 mg total) by mouth daily [facility] Metoprolol Tartrate 25 MG Oral Tablet me toprolol tartrate (LOPRESSOR) 25 MG tablet metoprolol tartrate (LOPRESSOR) 25 MG tablet 04/23/2021 12:0 0:00 AM EDT 12.5 mg Oral active Take 0.5 tablets (12.5 mg total) by mouth daily [facility] ferrous gluconate 324 MG Oral Tablet ferrous gluconate (FERGON) 324 MG tablet ferrous gluconate (FERGON) 324 MG tablet 04/23/2021 12:00:00 AM EDT 324 mg Oral active Take 1 tablet (324 m g total) by mouth daily with breakfast [facility] Acetaminophen 325 MG Oral Tablet acetaminophen (TYLENO L) 325 MG tablet acetaminophen (TYLENOL) 325 MG tablet 04/23/2021 12:00:00 AM EDT 65 0 mg Oral active Take 2 tablets (650 mg total) by mouth every 4 (four) hours as needed for pain [facility] heparin (porcine) injection 5,000 Units [id number] 04/22/20 10:00:00 PM EDT 5000 U Subcutaneous active 5,000 Units , Subcutaneous, Every 8 hours (scheduled), First dose on Wed04/22/21 at 2200, Post-op
Hold for platelet count less than 90,000, INR greater than or equal to 1.7 if receiving coumadin therapy
[facility] Medication administered onsite normal saline flush 0.9 % injection 3 mL [id number] 04/22/2021 09:00:00 PM EDT 3 mL Intravenous active 3 mL , Intravenous, PROTOCOL, First dose on Wed04/22/21 at 2100, Post-op
May convert IV to a saline lock when taking in good p.o. intake (minimally 600 mL).
[facility] Medication administered onsite ferrous gluconate 324 MG Oral Tablet ferrous gluconate (FERGON) tablet 324 mg ferrous gluconate (FERGON) tablet 324 mg 04/22/2021 09:00:00 PM EDT 324 mg Oral active 324 mg, Oral, 2 times daily, First dose on Wed04/22/21 at 2100, Post-op
Start when taking good p.o. intake.
[facility] Medication administered onsite Docusate Sodium 100 MG Oral Capsule docusate sodium (C OLACE) capsule 100 mg docusate sodium (COLACE) capsule 100 mg 04/22/2021 09:00:00 PM EDT 100 mg Oral active 100 mg, Oral, 2 times daily, First dose on Wed04/22/21 at 2100, Post-op
hold for loose stools
[facility] Medication administered onsite Magnesium Chloride 0.98323 MEQ/ML / Pota ssium Chloride 0.0497 MEQ/ML / Sodium Acetate 0.0163 MEQ/ML / Sodium Chloride 0.0899 MEQ/ML / Sodium gluconate 5.02 MG/ML Injectable Solution [Normosol-R] electrolyte-R (NORMOSOL-R/PLASMALYTE-R) solution electrolyte-R (NORMOSOL-R/PLASMALYTE-R) solution 04/22 07:00:00 PM EDT Intravenous active at 1 00 mL/hr, Intravenous, Continuous, Starting on Wed04/22/21 at 1900, PACU & Post-op [facility] [facility] Medication administered onsite POLYETHYLENE GLYCOL 3350 142 MG/ML Oral Solution polyethylene glycol (GLYCOLAX) packet 17 g polyethylene glycol (GLYCOLAX) packet 17 g 04/22/2021 07:00:00 PM EDT 17 g Oral active 17 g, Or al, Daily, First dose on Wed04/22/21 at 1900, Post-op
Start 2nd POD and continue until result.
[facility] Medication administered onsite acetaminophen (TYLENOL) 325 [...] Wed04/22/21 at 1822, Post-op [Order 2 End] [facility] Medication administered onsite potassium chloride SA (K-DUR,KLOR-CON) CR tablet 10 mEq 6203 704/22/2021 06:22:27 PM EDT 10 meq Oral active 10 mEq, Oral, As needed, Serum K+ 3.9-4.1, Starting on Wed04/22/21 at 1822, Post-op
For serum creatinine (SCR) greater than 1.5
[facility] Medication administered onsite potassium chloride SA (K-DUR,KLOR-CON) CR tablet 20 mEq 6203 704/22/2021 06:22:27 PM EDT 20 meq Oral active 20 mEq, Oral, As needed, Serum K+ 3.5-3.8, Starting on Wed04/22/21 at 1822, Post-op
For serum creatinine (SCR) greater than 1.5
[facility] Medication administered onsite potassium chloride SA (K-DUR,KLOR-CON) CR tablet 20 mEq 6203 04/22/2021 06:22:27 PM EDT 20 meq Oral active 20 mEq, Oral, As needed, Serum K+ 3.9-4.1, Starting on Wed04/22/21 at 1822, Post-op
For serum creatinine (SCR) 0.8 to 1.5
[facility] Medication administered onsite ondansetron (ZOFRAN) injection 4 mg [id number] 04/22/2021 06:22:2 7 PM EDT 4 mg Intravenous active 4 mg, In travenous, Every 6 hours PRN, nausea, vomiting, Starting on Wed04/22/21 at 1822, Post-op
If no response in 15-30 minutes, give metoclopramide 10 mg IV x 1 then q6h prn N/V.
[facility] Medication administered onsite potassium chloride SA (K-DUR,KLOR-CON) CR tablet 40 mEq 6203 704/22/2021 06:22:27 PM EDT 40 meq Oral active 40 mEq, Oral, As needed, Serum K+ 3.5-3.8, Starting on Wed04/22/21 at 1822, Post-op
For serum creatinine (SCR) 0.8 to 1.5
[facility] Medication administered onsite 10 ML Atropine [...] or 0.04 mg/kg. Max of 6 doses
[facility] Medication administered onsite magnesium sulfate 1 g in dextrose 5% infusion (premix) 57017 -[id number] 04/22/2021 06:22:26 PM EDT 1 g Intravenous active 1 g, Intravenous, at 200 mL/hr, As needed, serum Mg 1.9-2.1, Starting on Wed04/22/21 at 1822, Post-op
Give 1 grams magnesium sulfate IV x 1 run over 1 hour For serum creatinine (SCR) greater than 1.5
[facility] Medication administered onsite 50 ML Magnesium [...] For serum creatinine (SCR) greater than 1.5
[facility] Medication administered onsite 50 ML Magnesium [...] For serum creatinine (SCR) 0.8 to 1.5
[facility] Medication administered onsite 50 ML Magnesium [...] For serum creatinine (SCR) 0.8 to 1.5
[facility] Medication administered onsite Bisacodyl 10 MG Rectal Suppository bisacodyl (DULCOLAX ) suppository 10 mg bisacodyl (DULCOLAX) suppository 10 mg 04/22/2021 06:22:26 PM EDT 10 mg Rectal active 10 mg, Rectal, Daily PRN, constipation, Starting on Wed04/22/21 at 1822, Post-op
If polyethylene glycol not effective.
[facility] Medication administered onsite Nitroglycerin 0.4 MG Sublingual Tablet n itroglycerin (NITROSTAT) SL tablet 0.4 mg nitroglycerin (NITROSTAT) SL tablet 0.4 mg 04/22/2021 06:22:26 P M EDT 0.4 mg Sublingual active 0.4 mg, S ublingual, Every 5 min PRN, chest pain, Starting on Wed04/22/21 at 1822, Post-op
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 Notify MD/PA/SHIP SURVEYOR.
[facility] Medication administered onsite Aluminum Hydroxide 64 MG/ML Oral Suspens ion aluminum hydroxide (ALTERNAGEL) suspension 15 mL aluminum hydroxide (ALTERNAGEL) suspension 15 mL 04/22 06:22:26 PM EDT 15 mL Oral active 15 mL, Oral, Every 4 hours PRN, for indigestion/ gas, Starting on Wed04/22/21 at 1822, Post-op [facility] Medication administered onsite Albuterol 0.83 MG/ML Inhalant Solution a lbuterol (PROVENTIL) nebulizer solution 2.5 mg albuterol (PROVENTIL) nebulizer solution 2.5 mg 2020 06:22:25 PM EDT 2.5 mg active 2.5 mg, Nebulization, RT every 2 hours as needed, wheezing, shortness of breath, Starting on Wed04/22/21 at 1822, Post-op [facility] Medication administered onsite warfarin (COUMADIN) tablet 3 mg 04/19/2021 05:00:00 PM EDT 3 mg Oral completed 3 mg, Oral, [id number], F irst dose on 04/19/21 at 1700, For 1 dose
For administration and preparation considerations, refer to Hazardous Drugs in the Workplace Policy on Intranet.
[facility] Medication administered onsite gabapentin 800 MG Oral Tablet gabapentin (NEURONTIN) t ablet 400 mg gabapentin (NEURONTIN) tablet 400 mg 04/19/2021 03:00:00 PM EDT 400 mg Oral active 400 mg, Oral, 3 times daily, First dose (after last modification) on Wed04/19/21 at 1500 [facility] Medication administered onsite norepinephrine bitartrate (LEVOPHED) 4 m g in sodium chloride (NS) 0.9 % 250 mL infusion 04/19/2021 01:00:00 PM EDT ug/min Intravenous aborted 0-4 mcg/min (0-15 mL/hr), Intravenous, Continuous, Starting on Wed04/19/21 at 1300, Until Wed04/22/21 at 1822, at 0-15 mL/hr [facility] Medication administered onsite Buprenorphine 8 MG [...] the same time as other po medications
[facility] Medication administered onsite albumin human 5 % bottle 12.5 g [id number] 04/19/2021 12:00:00 PM EDT 12.5 g Intravenous completed Systolic Hypotension 12. 5 g, Intravenous, Once, Indications: Systolic Hypotension, On 04/19/21 at 1200, For 1 dose [facility] Systolic Hypotension Medication administered onsite albumin human 5 % bottle 12.5 g [id number] 04/19/2021 11:00:00 AM EDT 12.5 g Intravenous completed Hypotension 12.5 g, Intr avenous, Once, Indications: Hypotension, On 04/19/21 at 1100, For 1 dose [facility] Hypotension Medication administered onsite POLYETHYLENE GLYCOL 3350 142 MG/ML Oral Solution polyethylene glycol (GLYCOLAX) packet 17 g polyethylene glycol (GLYCOLAX) packet 17 g 04/19/2021 09:00:00 AM EDT 17 g Oral aborted 17 g, Or al, Daily, First dose on 04/19/21 at 0900, PACU & Post-op
Starting 2nd POD, give every day until result
[facility] Medication administered onsite Amiodarone hydrochloride 200 MG Oral Tablet amiodarone (PACERONE) tablet 400 mg amiodarone (PACERONE) tablet 400 mg 04/19/2021 09:00:00 AM EDT 400 mg Oral aborted 400 mg, Oral, Daily, First d ose on 04/19/21 at 0900 [facility] Medication administered onsite Amlodipine 10 MG Oral Tablet amLODIPine (NORVASC) tabl et 10 mg amLODIPine (NORVASC) tablet 10 mg 04/19/2021 09:00:00 AM EDT 10 mg Oral aborted 10 mg, Oral, Daily, First dose on 04/19/21 at 0900 [facility] Medication administered onsite ferrous gluconate 324 MG Oral Tablet ferrous gluconate (FERGON) tablet 324 mg ferrous gluconate (FERGON) tablet 324 mg 04/19/2021 07:00:00 AM EDT 324 mg Oral aborted 324 mg, Oral, 2 times daily before meals, First dose on Wed04/19/21 at 0700, PACU & Post-op
Start POD #2
[facility] Medication administered onsite Amlodipine 10 MG Oral Tablet amLODIPine (NORVASC) tabl et 10 mg amLODIPine (NORVASC) tablet 10 mg 04/19/2021 12:00:00 AM EDT 10 mg Oral completed 10 mg, Oral, Once, On Wed04/19/21 at 0000, For 1 dose [facility] Medication administered onsite Lisinopril 10 MG Oral Tablet lisinopril (PRINIVIL,ZEST RIL) tablet 5 mg lisinopril (PRINIVIL,ZESTRIL) tablet 5 mg 04/18/2021 09:00:00 PM EDT 5 mg Oral completed 5 mg, Oral, Once, On Wed04/18/21 at 2100, For 1 dose [facility] Medication administered onsite Lisinopril 10 MG Oral Tablet lisinopril (PRINIVIL,ZEST RIL) tablet 5 mg lisinopril (PRINIVIL,ZESTRIL) tablet 5 mg 04/18/2021 07:00:00 PM EDT 5 mg Oral aborted 5 mg, Oral, Da lane, First dose on Wed04/18/21 at 1900
Hold for SBP <105
[facility] Medication administered onsite Warfarin Sodium 2 MG Oral Tablet warfarin (COUMADIN) t ablet 2 mg warfarin (COUMADIN) tablet 2 mg 04/18/2021 05:00:00 PM EDT 2 mg Oral completed 2 mg, Oral, WAR17, First dose on Wed04/18/21 at 1700, For 1 dose
For administration and preparation considerations, refer to Hazardous Drugs in the Workplace Policy on Intranet.
[facility] Medication administered onsite albumin human 5 % bottle 12.5 g [id number] 04/18/2021 02:00:00 PM EDT 12.5 g Intravenous completed 12.5 g, Intra venous, Once, Indications: low urine output, On Wed04/18/21 at 1400, For 1 dose [facility] Medication administered onsite 168 HR Buprenorphine [...] per patch) to make dose of 20mcg/hr
[facility] Medication administered onsite Ascorbic Acid 500 MG Oral Tablet ascorbic acid (VITAMI N C) tablet 500 mg ascorbic acid (VITAMIN C) tablet 500 mg 04/18/2021 09:00:00 AM EDT 500 mg Oral active 500 mg, Oral, Daily, First dose on Wed04/18/21 at 0900
Give PO/OG. Start first POD.
[facility] Medication administered onsite Docusate Sodium 100 MG Oral Capsule docusate sodium (C OLACE) capsule 100 mg docusate sodium (COLACE) capsule 100 mg 04/18/2021 09:00:00 AM EDT 100 mg Oral aborted 100 mg, Oral, Daily, First dose on Wed04/18/21 at 0900, PACU & Post-op
Give PO/OG. Start first POD
[facility] Medication administered onsite Folic Acid 1 MG Oral Tablet folic acid (FOLVITE) table t 1 mg folic acid (FOLVITE) tablet 1 mg 04/18/2021 09:00:00 AM EDT 1 mg Oral aborted 1 mg, Oral, Daily, First dose on Wed04/18/21 at 0900, PACU & Post-op
Give PO/OG. Start first POD
[facility] Medication administered onsite normal saline flush 0.9 % injection 3 mL [id number] 04/18/2021 09:00:00 AM EDT 3 mL Intravenous aborted 3 mL , Intravenous, PROTOCOL, First dose on Wed04/18/21 at 0900, PACU & Post-op
May convert to saline lock with minimally 600 ml PO intake on first POD; prior to transfer
[facility] Medication administered onsite Aspirin 81 MG Delayed Release Oral Tablet aspirin EC t ablet 81 mg aspirin EC tablet 81 mg 04/18/2021 09:00:00 AM EDT 81 mg Oral activ e 81 mg, Oral, Daily, First dose on Wed04/18/21 at 0900
Hold for platelet count less than 90,000. If OG tube in place, give non-enteric coated aspirin.
[facility] Medication administered onsite Famotidine 20 MG Oral Tablet famotidine (PEPCID) table t 20 mg famotidine (PEPCID) tablet 20 mg 04/18/2021 09:00:00 AM EDT 20 mg Oral active 20 mg, Oral, Daily, First dose (after last reorder) on Wed04/18/21 at 0900
Start after extubation Dose adjusted per pharmacy renal dosing protocol
[facility] Medication administered onsite heparin (porcine) injection 5,000 Units [id number] 04/18/20 06:00:00 AM EDT 5000 U Subcutaneous aborted 5,000 Units , Subcutaneous, Every 8 hours (scheduled), First dose on Wed04/18/21 at 0600, PACU & Post-op
Start first POD. Hold for platelet count less than 90,000, INR greater than or equal to 1.7 if receiving coumadin therapy.
[facility] Medication administered onsite Amitriptyline Hydrochloride 25 MG Oral T ablet amitriptyline (ELAVIL) tablet 100 mg amitriptyline (ELAVIL) tablet 100 mg 04/17/2021 09:00:00 PM EDT 100 mg Oral active 100 mg, Oral, Nightl y, First dose on Gerri 04/17/21 at 2100 [facility] Medication administered onsite atorvastatin 80 MG Oral Tablet atorvastatin (LIPITOR) tablet 80 mg atorvastatin (LIPITOR) tablet 80 mg 04/17/2021 09:00:00 PM EDT 80 mg Oral active 80 mg, Oral, Nightly, First dose on Wed04/17/21 at 2100 [facility] Medication administered onsite Mupirocin 0.02 MG/MG Topical Ointment mupirocin (BACTR OBAN) 2 % ointment mupirocin (BACTROBAN) 2 % ointment 04/17/2021 09:00:00 PM EDT Nasal completed Nasal, 2 times daily , 7 doses, First dose on Wed04/17/21 at 2100, Last dose on Wed04/20/21 at 2100 [facility] Medication administered onsite 60 ACTUAT mometasone furoate 0.2 MG/ACTU AT Dry Powder Inhaler mometasone furoate (ASMANEX) DPI 220 mcg/inh inhaler mometasone furoate (ASMANEX) DPI 220 mcg /inh inhaler 04/17/2021 08:00:00 PM EDT 1 {puff} Inhalation acti ve 1 puff, Inhalation, 2 times daily, First dose on Wed04/17/21 at 2000 [facility] Medication administered onsite Dexmedetomidine HCl 400 mcg in sodium chloride (NS) 0.9 % 10 0 mL infusion 04/17/2021 07:00:00 PM EDT ug/kg/h Intravenous aborted Post-op, 0.2- 0.7 mcg/kg/hr 64.9 kg (3.245-11.3575 mL/hr, rounded to 3.2-11.4 mL/hr), Intravenous, Continuous, Starting on Wed04/17/21 at 1900, Until Wed04/18/21 at 0539, at 3.2- 11.4 mL/hr [facility] Medication administered onsite ezetimibe 10 MG Oral Tablet ezetimibe (ZETIA) tablet 1 0 mg ezetimibe (ZETIA) tablet 10 mg 04/17/2021 06:00:00 PM EDT 10 mg Oral activ e 10 mg, Oral, Daily, First dose on Wed04/17/21 at 1800 [facility] Medication administered onsite Cefazolin 1000 MG Injection ceFAZolin (ANCEF) injectio n 1 g ceFAZolin (ANCEF) injection 1 g 04/17/2021 04:00:00 PM EDT 1 g Intravenous completed 1 g, Intravenous, Every 8 hours (relative), First dose on Gerri 04/17/21 at 1600, For 5 doses, PACU & Post-op
Not to exceed 48 hours from time of closure. Time of closure = 1055am Reconstitute with 10 ml sterile water for injection. Administer IV push over 3 minutes. Use within 1 hour of reconstitution
[facility] Medication administered onsite gabapentin 800 MG Oral Tablet gabapentin (NEURONTIN) t ablet 800 mg gabapentin (NEURONTIN) tablet 800 mg 04/17/2021 03:00:00 PM EDT 800 mg Oral aborted 800 mg, Oral, 3 times daily, First dose on Gerri 04/17/21 at 1500 [facility] Medication administered onsite amiodarone HCl 900 mg in dextrose 5 % 500 mL infusion 04/17/2021 02:00:00 PM EDT mg/min Intravenous aborted 0.5- 1 mg/min (16.6667-33.3333 mL/hr, rounded to 16.7-33.3 mL/hr), Intravenous, Continuous, Starting on Gerri 04/17/21 at 1400, Until 04/19/21 at 0624, at 16.7-33.3 mL/hr [facility] Medication administered onsite 3 ML Amiodarone hydrochloride 50 MG/ML I njection amiodarone (CORDARONE) injection SOLN 150 mg amiodarone (CORDARONE) injection SOLN 150 mg 02:00:00 PM EDT 150 mg Intravenous completed 150 mg, Intravenous, Once, On Gerri 04/17/21 at 1400, For 1 dose
Administer through 0.22 micron filter, mix in 100 mL D5W and infuse over 10 minutes
[facility] Medication administered onsite Ipratropium Manquin 0.2 MG/ML Inhalant S olution ipratropium (ATROVENT) 0.02 % nebulizer solution 0.5 mg ipratropium (ATROVENT) 0.02 % nebulizer solution 0.5 mg 04/17/2021 12:00:00 PM EDT 0.5 mg active 0.5 mg, Nebulization, 4 times daily, First dose on Gerri 04/17/21 at 1200 [facility] Medication administered onsite Vitamin B 12 1 MG/ML Injectable Solution cyanocobalami n injection 1,000 mcg cyanocobalamin injection 1,000 mcg 04/17/2021 12:00:00 PM EDT 10 00 ug Subcutaneous completed 1,000 mcg, S ubcutaneous, Once, On Gerri 04/17/21 at 1200, For 1 dose, PACU & Post-op
DEEP SUBCUTANEOUS
[facility] Medication administered onsite Famotidine (PEPCID) injection 20 mg [id number] 04/17/2021 12:00:0 0 PM EDT 20 mg Intravenous aborted 20 mg, I ntravenous, Every 12 hours (scheduled), First dose on Gerri 04/17/21 at 1200, PACU & Post-op
D/C after extubation
[facility] Medication administered onsite niCARdipine (CARDENE) 50 mg/250 ml 0.9% NaCl infusion 04/17/2021 12:00:00 PM EDT mg/h Intravenous aborted PACU & Post-op, 0-15 mg/hr (0-75 mL/hr), Intravenous, Continuous, Starting on Gerri 04/17/21 at 1200, Until 04/19/21 at 1119, at 0-75 mL/hr [facility] Medication administered onsite Magnesium Chloride 0.74642 MEQ/ML / Pota ssium Chloride 0.0497 MEQ/ML [...] intake is 2 liters in 24 hours
[facility] Medication administered onsite propofol (DIPRIVAN) infusion 10 mg/mL [id number] 04/17/2021 12:00 :00 PM EDT ug/kg/min Intravenous [...] OFF 2 HOURS AFTER ADMISSION TO CVICU
[facility] Medication administered onsite Dexmedetomidine HCl 400 mcg in sodium chloride (NS) 0.9 % 10 0 mL infusion 04/17/2021 12:00:00 PM EDT ug/kg/h Intravenous complete d Post-op, 0.2-0.7 mcg/kg/hr 64.9 kg (3.245-11.3575 mL/hr, rounded to 3.2-11.4 mL/hr), Intravenous, Continuous, Starting on Gerri 04/17/21 at 1200, Until Gerri 04/17/21 at 1544, at 3.2- 11.4 mL/hr [facility] Medication administered onsite ondansetron (ZOFRAN) injection 4 mg [id number] 04/17/2021 11:12:1 7 AM EDT 4 mg Intravenous aborted 4 mg, In travenous, Every 6 hours PRN, nausea, vomiting, Starting on Gerri 04/17/21 at 1112, PACU & Post-op [facility] Medication administered onsite potassium chloride 20 mEq in 50 mL IVPB (CRITICAL CARE/PCU O NLY) [id number] 04/17/2021 11:12:17 AM EDT 20 meq Intravenous [...] over 1 hour through a central line
[facility] Medication administered onsite Patient on Coumadin [...] Heart Valve
Target INR: 2 to 3 [facility] Medication administered onsite magnesium sulfate 1 g in dextrose 5% infusion (premix) 27472 -108-01 04/17/2021 11:12:16 AM EDT 1 g Intravenous aborted 1 g, Intravenous, Administer over 30 Minutes
As needed, for serum Mg+ 1.9 to 2.1, Starting on Gerri 04/17/21 at 1112, PACU & Post-op
Run over 30 minutes through a central line
[facility] Medication administered onsite 2 ML Midazolam 1 MG/ML Injection midazolam (VERSED) in jection 1 mg midazolam (VERSED) injection 1 mg 04/17/2021 11:12:16 AM EDT 1 mg Intraveno us aborted 1 mg, Intravenous, E very 30 min PRN, anxiety, sedation, Starting on Gerri 04/17/21 at 1112, For 7 days, PACU & Post-op
Target RASS -2 to +1 DISCONTINUE AFTER EXTUBATION
[facility] Medication administered onsite HYDROmorphone (DILAUDID) injection 0.5 mg [id number] 04/17/2021 11:12:16 AM EDT 0.5 mg Intravenous aborted 0.5 mg, Intravenous, Every 5 min PRN, severe pain (7-10), Starting on Gerri 04/17/21 at 1112, For 7 days
Indicated for patients less than 75 years of age and not frail patients. FOR EXTUBATED PATIENTS ONLY. DISCONTINUE 6 HOURS POST EXTUBATION. Maximum dose 2 mg.
[facility] Medication administered onsite fentaNYL Citrate (PF) (SUBLIMAZE) injection 25 mcg [id number] 04/17/2021 11:12:15 AM EDT 25 ug Intravenous aborted 25 mcg, Intravenous, Every 10 min PRN, moderate pain (4-6), Starting on Gerri 04/17/21 at 1112, For 7 days, PACU & Post-op
Maximum 10 doses in a 24-hour period. DISCONTINUE 6 HOURS POST EXTUBATION
[facility] Medication administered onsite HYDROmorphone (DILAUDID) injection 0.5 mg [id number] 04/17/2021 11:12:15 AM EDT 0.5 mg Intravenous aborted 0.5 mg, Intravenous, Every 10 min PRN, severe pain (7-10), Starting on Gerri 04/17/21 at 1112, For 7 days, PACU & Post- op
Indicated for patients less than 75 years of age and not frail patients. FOR INTUBATED PATIENTS ONLY. DISCONTINUE POST EXTUBATION. Maximum dose 3 mg.
[facility] Medication administered onsite Acetaminophen 325 MG [...] mg from all sources in 24 hours."
[facility] Medication administered onsite Metoprolol Tartrate 25 MG Oral Tablet me toprolol tartrate (LOPRESSOR) tablet 12.5 mg metoprolol tartrate (LOPRESSOR) tablet 12.5 mg 021 09:00:00 AM EDT 12.5 mg Oral aborted 12.5 mg, Oral, 2 times daily, First dose on Gerri 04/17/21 at 0900, Pre-op
Hold for HR < 60, or SBP <100
[facility] Medication administered onsite BUPIVACAINE 0.5% (Q-BALL) 330 mL drug or medication 04/17/2021 0 8:00:00 AM EDT 330 mL Topical active 330 mL, Topical, Continuous, Starting on Gerri 04/17/21 at 0800, Intra-op
Please indicate single or double lumen: Single Lumen [facility] Medication administered onsite heparin (porcine) injection 5,000 Units [id number] 04/17/20 21 06:00:00 AM EDT 5000 U Subcutaneous completed 5,000 Uni ts, Subcutaneous, Once, On Gerri 04/17/21 at 0600, For 1 dose, Pre-op
Once on admission. Hold for platelets < 90,000.
[facility] Medication administered onsite 2 % 04/16/2021 12:00:00 AM EDT ointment 22 APPLY WITH COTTON SWAB TO EACH NOSTRIL TWO TIMES A DAY, START FIVE DAYS PRIOR TO SURGERY APPLY WITH COTTON SWAB TO EACH NOSTRIL TWO TIMES A DAY, START FIVE DAYS PRIOR TO SURGERY SOLD: 04/16/2021 [facility] 20 mcg/hour 04/10/2021 12:00:00 AM EDT patch weekly 4 APPLY 1 PATCH TO SKIN ONCE WEEKLY, MAX 1 PATCH PER WEEK APPLY 1 PATCH TO SKIN ONCE WEEKLY, MAX 1 PATCH PER WEEK SOLD: 04/10/2021 [facility] 8-2 mg 04/06/2021 12:00:00 AM EDT film 112 DISSOLVE 4 FILMS UNDER THE SKIN ONCE DAILY, MAXIMUM DAILY DOSE = 4 FILMS DISSOLVE 4 FILMS UNDER THE SKIN ONCE DAILY, MAXIMUM DAILY DOSE = 4 FILMS SOLD: 04/06/2021 [facility] 20 mcg/hour 03/14/2021 12:00:00 AM EDT [...] DAILY DOSE = 4 FILMS SOLD: 03/10/2021 [facility] 10-200 mg 02/25/2021 12:00:00 AM EDT tablet 16 AFTER STOPPING BUPRENORPHINE, TAKE ONE TABLET BY MOUTH FOUR TIMES A DAY NEEDED FOR PAIN, MAXIMUM DAILY DOSE = 4 TABLETS AFTER STOPPING BUPRENORPHINE, TAKE ONE T ABLET BY MOUTH FOUR TIMES A DAY NEEDED FOR PAIN, MAXIMUM DAILY DOSE = 4 TABLETS SOLD: 02/25/2021 [facility] 20 mcg/hour 02/11/2021 12:00:00 AM EDT patch weekly 4 APPLY ONE PATCH TO THE SKIN ONCE WEEKLY MAXIMUM DAILY DOSE = 1/ 7 DAYS APPLY ONE PATCH TO THE SKIN ONCE WEEKLY MAXIMUM DAILY DOSE = 1/ 7 DAYS SOLD: 02/12/2021 [facility] 8-2 mg 02/10/2021 12:00:00 AM EDT film 112 DISSOLVE 4 FILMS UNDER TONGUE ONCE DAILY, MAXIMUM DAILY DOSE = 4 FILMS DISSOLVE 4 FILMS UNDER TONGUE ONCE DAILY, MAXIMUM DAILY DOSE = 4 FILMS SOLD: 02/10/2021 [facility] 10 mg 02/07/2021 12:00:00 AM EDT tablet 90 TAKE ONE TABLET BY MOUTH EVERY DAY TAKE ONE TABLET BY MOUTH EVERY DAY SOLD: 05/18/2021 [facility] 10 mg 02/07/2021 12:00:00 AM EDT tablet 90 TAKE ONE TABLET BY MOUTH EVERY DAY TAKE ONE TABLET BY MOUTH EVERY DAY SOLD: 02/14/2021 [facility] ezetimibe 10 MG Oral Tablet ezetimibe (ZETIA) 10 MG ta blet ezetimibe (ZETIA) 10 MG tablet 02/06/2021 12:00:00 AM EDT 10 mg Oral active Take 1 tablet (10 mg total) by mouth daily [facility] Furosemide 20 MG Oral Tablet furosemide (LASIX) 20 MG tablet furosemide (LASIX) 20 MG tablet 02/06/2021 12:00:00 AM EDT 20 mg Oral abort ed Take 1 tablet (20 mg total) by mouth daily [facility] 24 HR Nicotine 0.292 MG/HR Transdermal Patch nicotine (NICODERM CQ) 7 MG/24HR nicotine (NICODERM CQ) 7 MG/24HR 02/06/2021 12:00:00 AM EDT 1 {p atch} Transdermal aborted Place 1 patch on t he skin daily [facility] 20 mcg/hour 01/14/2021 12:00:00 AM EDT [...] DAILY DOSE = 4 FILMS SOLD: 01/14/2021 [facility] 5 mg 01/09/2021 12:00:00 AM EDT tablet 30 TAKE ONE TABLET BY MOUTH EVERY DAY TAKE ONE TABLET BY MOUTH EVERY DAY SOLD: 01/09/2021 [facility] Lisinopril 5 MG Oral Tablet lisinopril (PRINIVIL,ZESTR IL) 5 MG tablet lisinopril (PRINIVIL,ZESTRIL) 5 MG tablet 01/07/2021 12:00:00 AM EDT 5 mg Or al aborted Take 1 tablet (5 mg total) by mo uth daily [facility] 100 mg 12/26/2020 12:00:00 AM EDT [...] OF 1 PATCH PER WEEK SOLD: 12/18/2020 [facility] 8-2 mg 12/17/2020 12:00:00 AM EDT film [address] 4 FILMS UNDER THE TONGUE DAILY MAXIMUM DAILY DOSE = [address] 4 FILMS UNDER THE TONGUE DAILY MAX IMUM DAILY DOSE = 4 STRIPS SOLD: 12/17/2020 [facility] iopamidol (ISOVUE-370) 76 % [id number] 12/10/2020 01:37:13 PM EDT active As needed, Starting Wed12/10/20 at 1337, Intra-Procedu re [facility] Medication administered onsite NITROGLYCERIN 0.4 MG/ML IV SOLN [id number] 12/10/2020 12:43:30 PM EDT active As needed, Starting 12/10 at 1243, Intra-Procedure [facility] Medication administered onsite 1 ML heparin sodium, porcine 1000 UNT/ML Injection hep shanti (porcine) injection heparin (porcine) injection 12/10/2020 12:33:21 PM EDT active As needed, Starting Wed12/10/20 at 1233, Intra-Procedure [facility] Medication administered onsite lidocaine 1 % injection [id number] 12/10/2020 12:29:18 PM EDT active As needed, Starting Wed12/10/20 at 1229, Intra-Procedure [facility] Medication administered onsite 2 ML Midazolam 1 MG/ML Injection midazolam (VERSED) in jection midazolam (VERSED) injection 12/10/2020 12:28:40 PM EDT active As needed, Starting Wed12/10/20 at 1228, Intra-Procedure [facility] Medication administered onsite fentaNYL Citrate (PF) (SUBLIMAZE) injection 2930-6221-07 12/10/2020 12:28:26 PM EDT active As neede d, Starting Wed12/10/20 at 1228, Intra-Procedure [facility] Medication administered onsite sodium chloride 0.9% (NS) infusion 6406-3513-90 12/10/2020 10:00:00 AM EDT 100 mL/h Intravenous active at 100 m L/hr, 100 mL/hr, Intravenous, Continuous, Starting Wed12/10/20 at 1000, Pre-op [facility] Medication administered onsite normal saline flush 0.9 % injection 3 mL 32199-442-22 12/10/2020 10:00:00 AM EDT 3 mL Intravenous active 3 mL , Intravenous, Every 8 hours (scheduled), First dose on Wed12/10/20 at 1000, Pre-op
Rapid push positive pressure flushing shall be performed with a 10 cc normal saline syringe to check the PATENCY of a PIV site prior to any infusion therapy initiation unless resistance is met.
[facility] Medication administered onsite 40 mg 12/10/2020 12:00:00 AM EDT tablet 30 TAKE ONE TABLET BY MOUTH ONCE DAILY TAKE ONE TABLET BY MOUTH ONCE DAILY SOLD: 12/14/2020 [facility] Aspirin 81 MG Delayed Release Oral Tablet aspirin EC 8 1 MG EC tablet aspirin EC 81 MG EC tablet 12/09/2020 12:00:00 AM EDT 81 mg Oral ab orted Take 1 tablet (81 mg total) by mouth daily [facility] Furosemide 40 MG Oral Tablet furosemide (LASIX) 40 MG tablet furosemide (LASIX) 40 MG tablet 12/09/2020 12:00:00 AM EDT 40 mg Oral activ e Take 1 tablet (40 mg total) by mouth daily [facility] 100 mg 12/07/2020 12:00:00 AM EDT tablet 20 TAKE 1 TABLET BY MOUTH NEEDED FOR HEADACHE MAY REPEAT IN 2 HR X 1 IF NEED TAKE 1 TABLET BY MOUTH NEEDED FOR HEADACHE MAY REPEAT IN 2 HR X 1 IF NEED SOLD: 12/08/2020 [facility] 100 mg 12/07/2020 12:00:00 AM EDT tablet 20 TAKE 1 TABLET BY MOUTH NEEDED FOR HEADACHE MAY REPEAT IN 2 HR X 1 IF NEED TAKE 1 TABLET BY MOUTH NEEDED FOR HEADACHE MAY REPEAT IN 2 HR X 1 IF NEED SOLD: 01/20/2021 [facility] gabapentin 800 MG Oral Tablet [...] activ e Atorvastatin Calcium 80 MG eCW1 ([facility]) atorvastatin 80 MG Oral Tablet Atorvastatin Calcium 80 MG Atorvastatin Calcium 80 MG 12/06/2020 12:00:00 AM EDT 1.0 {tablet} activ e Atorvastatin Calcium 80 MG eCW1 ([facility]) atorvastatin 80 MG Oral Tablet Atorvastatin Calcium 80 MG Atorvastatin Calcium 80 MG 12/06/2020 12:00:00 AM EDT 1.0 {tablet} activ e Atorvastatin Calcium 80 MG eCW1 ([facility]) 12 HR Bupropion Hydrochloride 100 MG Ext ended Release Oral Tablet buPROPion HCl ER (SR) 100 MG buPROPion HCl ER (SR) 100 MG 12/06/2020 12:00:00 AM EDT 1.0 {tablet_in_the_morning} active buPROPio n HCl ER (SR) 100 MG eCW1 ([facility]) 12 HR Bupropion Hydrochloride 100 MG Ext ended Release Oral Tablet buPROPion HCl ER (SR) 100 MG buPROPion HCl ER (SR) 100 MG 12/06/2020 12:00:00 AM EDT 1.0 {tablet_in_the_morning} active buPROPio n HCl ER (SR) 100 MG eCW1 ([facility]) 12 HR Bupropion Hydrochloride 100 MG Ext ended Release Oral Tablet buPROPion HCl ER (SR) 100 MG buPROPion HCl ER (SR) 100 MG 12/06/2020 12:00:00 AM EDT 1.0 {tablet_in_the_morning} active buPROPio n HCl ER (SR) 100 MG eCW1 ([facility]) atorvastatin 80 MG Oral Tablet Atorvastatin Calcium 80 MG Atorvastatin Calcium 80 MG 12/06/2020 12:00:00 AM EDT 1.0 {tablet} activ e Atorvastatin Calcium 80 MG eCW1 ([facility]) atorvastatin 80 MG Oral Tablet Atorvastatin Calcium 80 MG Atorvastatin Calcium 80 MG 12/06/2020 12:00:00 AM EDT 1.0 {tablet} activ e Atorvastatin Calcium 80 MG eCW1 ([facility]) 12 HR Bupropion Hydrochloride 100 MG Ext ended Release Oral Tablet buPROPion HCl ER (SR) 100 MG buPROPion HCl ER (SR) 100 MG 12/06/2020 12:00:00 AM EDT 1.0 {tablet_in_the_morning} active buPROPio n HCl ER (SR) 100 MG eCW1 ([facility]) 12 HR Bupropion Hydrochloride 100 MG Ext ended Release Oral Tablet buPROPion (WELLBUTRIN SR) 100 MG 12 hr tablet buPROPion (WELLBUTRIN SR) 100 MG 12 hr tablet 12/06/2020 12:00:00 AM EDT aborted [facility] gabapentin 800 MG Oral Tablet gabapentin (NEURONTIN) 8 00 MG tablet gabapentin (NEURONTIN) 800 MG tablet 12/06/2020 12:00:00 AM EDT 800 mg Oral active Take 800 mg by mouth 3 (three) times a day [facility] atorvastatin 80 MG Oral Tablet atorvastatin (LIPITOR) 80 MG tablet atorvastatin (LIPITOR) 80 MG tablet 12/06/2020 12:00:00 AM EDT 80 mg Oral active Take 80 mg by mouth nightly [facility] Sumatriptan 100 MG Oral Tablet SUMAtriptan (IMITREX) 1 00 MG tablet SUMAtriptan (IMITREX) 100 MG tablet 12/06/2020 12:00:00 AM EDT 100 mg Oral active Take 100 mg by mouth once as needed (at onset of migraine. May repeat dose in 2 hours if needed. MDD : 2 tablets) [facility] albuterol (PROVENTIL HFA;VENTOLIN HFA) 108 (90 Base) M CG/ACT inhaler [id number] 12/06/2020 12:00:00 AM EDT 2 {puff} Inhalation active Inhale 2 puffs every 4 (four) hours as needed for wheezing [facility] 12 HR Bupropion Hydrochloride 100 MG Ext ended Release Oral Tablet buPROPion HCl ER (SR) 100 MG buPROPion HCl ER (SR) 100 MG 12/06/2020 12:00:00 AM EDT 1.0 {tablet_in_the_morning} active buPROPio n HCl ER (SR) 100 MG eCW1 ([facility]) atorvastatin 80 MG Oral Tablet Atorvastatin Calcium 80 MG Atorvastatin Calcium 80 MG 12/06/2020 12:00:00 AM EDT 1.0 {tablet} activ e Atorvastatin Calcium 80 MG eCW1 ([facility]) atorvastatin 80 MG Oral Tablet Atorvastatin Calcium 80 MG Atorvastatin Calcium 80 MG 12/06/2020 12:00:00 AM EDT 1.0 {tablet} activ e Atorvastatin Calcium 80 MG eCW1 ([facility]) 12 HR Bupropion Hydrochloride 100 MG Ext ended Release Oral Tablet BuPROPion HCl ER (SR) 100 MG BuPROPion HCl ER (SR) 100 MG 12/06/2020 12:00:00 AM EDT 1.0 {tablet_in_the_morning} active BuPROPio n HCl ER (SR) 100 MG eCW1 ([facility]) 12 HR Bupropion Hydrochloride 100 MG Ext ended Release Oral Tablet buPROPion HCl ER (SR) 100 MG buPROPion HCl ER (SR) 100 MG 12/06/2020 12:00:00 AM EDT 1.0 {tablet_in_the_morning} active buPROPio n HCl ER (SR) 100 MG eCW1 ([facility]) Amitriptyline Hydrochloride 100 MG Oral Tablet amitriptyline (ELAVIL) 100 MG tablet amitriptyline (ELAVIL) 100 MG tablet 11/25/2020 12:00:00 AM EDT 100 mg Oral active Take 100 mg by mouth nightly [facility] 20 mcg/hour 11/21/2020 12:00:00 AM EST patch weekly 4 APPLY ONE PATCH WEEKLY MAXIMUM DAILY DOSE = 1 PATCH PER WEEK APPLY ONE PATCH WEEKLY MAXIMUM DAILY DOS E = 1 PATCH PER WEEK SOLD: 11/21/2020 [facility] 168 HR Buprenorphine 0.02 MG/HR Transdermal Patch Bupr enorphine 20 MCG/HR PTWK Buprenorphine 20 MCG/HR PTWK 11/21/2020 12:00:00 AM EST 20 [address] 20 mcg on the skin every 7 days on Wednesday [facility] 8-2 mg 11/19/2020 12:00:00 AM EST [...] [facility] SPIRIVA RESPIMAT 2.5 MCG/ACT AERS [id number] 11/06/2020 12:00:00 AM EST 2 {puff} Inhalation active Inhale 2 puffs daily [facility] 28 ACTUAT Fluticasone propionate 0.1 MG/ ACTUAT Dry Powder Inhaler [Flovent] FLOVENT DISKUS 100 MCG/BLIST AEPB FLOVENT DISKUS 100 MCG/BLIST AEPB 11/06/2020 12:00:00 AM EST 1 {puff} Inhalation active Inhale 1 puff 2 (two) times a day [facility] 90 mcg/actuation 11/06/2020 12:00:00 AM EST [...] active Flovent Disku s 100 MCG/BLIST eCW1 ([facility]) Aspirin 81 MG Delayed Release Oral Tablet Aspirin 81 MG 11/05/2020 12:00:00 AM EST 1.0 {tablet} active Aspirin 81 MG eCW1 ([facility]) Aspirin 81 MG Delayed Release Oral Tablet Aspirin 81 MG 11/05/2020 12:00:00 AM EST 1.0 {tablet} active Aspirin 81 MG eCW1 ([facility]) Aspirin 81 MG Delayed Release Oral Tablet Aspirin 81 MG 11/05/2020 12:00:00 AM EST 1.0 {tablet} active Aspirin 81 MG eCW1 ([facility]) Aspirin 81 MG Delayed Release Oral Tablet Aspirin 81 MG 11/05/2020 12:00:00 AM EST 1.0 {tablet} active Aspirin 81 MG eCW1 ([facility]) Aspirin 81 MG Delayed Release Oral Tablet Aspirin 81 MG 11/05/2020 12:00:00 AM EST 1.0 {tablet} active Aspirin 81 MG eCW1 ([facility]) 28 ACTUAT Fluticasone propionate 0.1 MG/ ACTUAT Dry Powder Inhaler [Flovent] Flovent Diskus 100 MCG/BLIST Flovent Diskus 100 MCG/BLIST 11/05/2020 12:00:00 AM EST 1.0 {puff} active Flovent Disku s 100 MCG/BLIST eCW1 ([facility]) 28 ACTUAT tiotropium 0.0025 MG/ACTUAT Me tered Dose Inhaler [Spiriva] Spiriva Respimat 2.5 MCG/ACT Spiriva Respimat 2.5 MCG/ACT 11/05/2020 12:00:00 AM EST 2.0 {puffs} active Spiriva Respimat 2.5 MCG/ACT eCW1 ([facility]) 28 ACTUAT tiotropium 0.0025 MG/ACTUAT Me tered Dose Inhaler [Spiriva] Spiriva Respimat 2.5 MCG/ACT Spiriva Respimat 2.5 MCG/ACT 11/05/2020 12:00:00 AM EST 2.0 {puffs} active Spiriva Respimat 2.5 MCG/ACT eCW1 ([facility]) 28 ACTUAT Fluticasone propionate 0.1 MG/ ACTUAT Dry Powder Inhaler [Flovent] Flovent Diskus 100 MCG/BLIST Flovent Diskus 100 MCG/BLIST 11/05/2020 12:00:00 AM EST 1.0 {puff} active Flovent Disku s 100 MCG/BLIST eCW1 ([facility]) Aspirin 81 MG Delayed Release Oral Tablet Aspirin 81 MG 11/05/2020 12:00:00 AM EST 1.0 {tablet} active Aspirin 81 MG eCW1 ([facility]) Aspirin 81 MG Delayed Release Oral Tablet Aspirin 81 MG 11/05/2020 12:00:00 AM EST 1.0 {tablet} active Aspirin 81 MG eCW1 ([facility]) Aspirin 81 MG Delayed Release Oral Tablet Aspirin 81 MG 11/05/2020 12:00:00 AM EST 1.0 {tablet} active Aspirin 81 MG eCW1 ([facility]) 28 ACTUAT tiotropium 0.0025 MG/ACTUAT Me tered Dose Inhaler [Spiriva] Spiriva Respimat 2.5 MCG/ACT Spiriva Respimat 2.5 MCG/ACT 11/05/2020 12:00:00 AM EST 2.0 {puffs} active Spiriva Respimat 2.5 MCG/ACT eCW1 ([facility]) 28 ACTUAT tiotropium 0.0025 MG/ACTUAT Me tered Dose Inhaler [Spiriva] Spiriva Respimat 2.5 MCG/ACT Spiriva Respimat 2.5 MCG/ACT 11/05/2020 12:00:00 AM EST 2.0 {puffs} active Spiriva Respimat 2.5 MCG/ACT eCW1 ([facility]) 28 ACTUAT Fluticasone propionate 0.1 MG/ ACTUAT Dry Powder Inhaler [Flovent] Flovent Diskus 100 MCG/BLIST Flovent Diskus 100 MCG/BLIST 11/05/2020 12:00:00 AM EST 1.0 {puff} active Flovent Disku s 100 MCG/BLIST eCW1 ([facility]) 20 mcg/hour 10/23/2020 12:00:00 AM EST patch [...] F 1 PATCH PER WEEK SOLD: 07/27/2020 [facility] 8-2 mg 07/02/2020 12:00:00 AM EDT [...] MOUTH THREE TIMES A DAY SOLD: 11/13/2020 [facility] gabapentin 800 MG Oral Tablet [...] DOSE = 1 SOLD: 05/29/2020 [facility] 100 mg 04/11/2020 12:00:00 AM [...] 2 HOURS DIRECTED SOLD: 06/17/2020 [facility] gabapentin 800 MG Oral Tablet GABAPENTIN 03/26/2020 12:00:00 AM EDT ta blet 90 TAKE ONE TABLET BY MOUTH THREE TIMES A DAY TAKE ONE TABLET BY MOUTH THREE TIMES A DAY SOLD: 05/29/2020 [facility] 100 mg 12/14/2019 12:00:00 AM EDT tablet 30 TAKE ONE TABLET BY MOUTH EVERY DAY TAKE ONE TABLET BY MOUTH EVERY DAY SOLD: 05/29/2020 [facility] Ibuprofen 200 MG Oral Tablet ibuprofen (ADVIL,MOTRIN) 200 MG tablet ibuprofen (ADVIL,MOTRIN) 200 MG tablet 200 mg Oral aborted Take 200 mg by mouth every 8 (eight) hours as needed [facility] Hydrocodone Bitartrate 10 MG / Ibuprofen 200 MG Oral Tablet HYDROcodone- Ibuprofen 10-200 MG TABS HYDROcodone-Ibuprofen 10-200 MG TABS 1 {tbl} Oral aborted Take 1 tablet by mouth 4 (four) times a day as needed (for pain) [facility] Insurance Providers Payer name Policy type / Coverage type Policy ID Covered constitution party ID Covered constitution party's relationship to pedro Policy Pedro Plan Information [facility] [employer] [facility] () Workers Compensation [id number] Self [id number] [facility] Part B [id number] Self [id number] [facility] () Workers Compensation [id number] Self [id number] [employer] [employer] () Workers Compensation [id number] Self [id number] [facility] () Workers Compensation [id number] Self [id number] MEDICARE [id number] Eugenia [id number] MEDICARE [id number] A MEDICARE [id number] MEDICARE [id number] Eugenia [id number] HUMANA [id number] xxxxxxxxx [id number] HUMANA MEDICARE [id number] xxxxxxxxx [id number] HUMANA [id number] Eugenia [id number] HUMANA MEDICARE [id number] Eugenia [id number] HUMANA MEDICARE [id number] Eugenia [id number] HUMANA [id number] Eugenia [id number] INSURANCE COVID-19 COVID Eugenia C OVID INSURANCE COVID-19 COVID Eugenia C OVID INSURANCE COVID-19 [id number] xOVID 2 [id number] INSURANCE COVID-19 COVID Eugenia C OVID INSURANCE COVID-19 COVID Eugenia C OVID INSURANCE COVID-19 [id number] xOVID 2 [id number] ANSI-Medicare Part B [id number] ANSI-Medicare Part B [id number] ANSI-Medicare Part B [id number] ANSI-Medicare Part B [id number] ANSI-Medicare Part B [id number] ANSI-Medicare Part B [id number] ANSI-Medicare Part B [id number] ANSI-Medicare Part B [id number] ANSI-Medicare Part B [id number] ANSI-Medicare Part B [id number] ANSI-Medicare Part B [id number] MEDICARE C [id number] S [id number] A HUMANA GOLD [id number] SP [id number] Medicare Medicare Primary [id number] Self HUMANA GOLD [id number] SP [id number] [facility] [id number] SP [id number] MEDICARE [id number] SP [id number] A HUMANA PPO [id number] SP [id number] MEDICARE [id number] SP [id number] ANSI-Commercial [id number] ANSI-Medicare Part B [id number] ANSI-Commercial [id number] ANSI-Medicare Part B [id number] ANSI-Medicare Part B [id number] ANSI-Commercial [id number] Medicare [place] Primary [id number] Self 3 [id number] ANSI-Commercial [id number] ANSI-Medicare Part B [id number] ANSI-Medicare Part B [id number] ANSI-Medicare Part B [id number] ANSI-Medicare Part B [id number] ANSI-Medicare Part B [id number] ANSI-Medicare Part B [id number] ANSI-Medicare Part B [id number] ANSI-Medicare Part B [id number] Problems, Conditions, and Diagnoses Code Display Name Description Problem Type Effective Dates Data Source(s) I48.3 Typical atrial flutter Typical atrial flutter Diagnosi s 07/08/2021 03:24:34 PM EDT [facility] Z95.0 Presence of cardiac pacemaker Presence of cardiac pace maker Diagnosis 04/28/2021 02:44:50 PM EDT [facility] R09.89 Other specified symptoms and signs involving the circulatory and respiratory systems Other specified symptoms and signs invol Diagnosis 04/28/2021 02:44:50 PM EDT [facility] F17.200 Nicotine dependence, unspecified, uncomp licated Nicotine dependence, unspecified, uncomp Diagnosis 04/28/2021 02:44:50 PM EDT [facility] E78.00 Pure hypercholesterolemia, unspecified P ure hypercholesterolemia, unspecified Diagnosis 04/28/2021 02:44:50 PM EDT [facility] Z95.2 Presence of prosthetic heart valve Presence of p rosthetic heart valve Diagnosis 04/28/2021 02:44:50 PM EDT [facility] 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 Rheumatic mitral insuff iciency Diagnosis 04/17/2021 05:18:00 AM EDT [facility] U07.1 COVID-19 COVID-19 Diagnosis 04/14/2021 08:25:17 AM ED T [facility] 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 Rheumatic mitral stenosis with insuffici Diagnosis 04/07/2021 02:12:35 PM EDT [facility] I73.9 Peripheral vascular disease, unspecified Peripheral vascular disease, unspecified Diagnosis 01/13/2021 01:57:32 PM EDT [facility] 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 Rheumatic mitral stenosis with insuffici Diagnosis 01/13/2021 01:57:32 PM EDT [facility] R06.02 Shortness of breath Shortness of breath Diagnosis 0 01/06/2021 02:29:51 PM EDT [facility] Z95.2 [id number] H/O mitral valve replacement with mecha nical valve Problem 06/19/2021 12:00:00 AM EDT [facility] ([facility]) I48.3 [id number] Typical atrial flutter Problem 06/19/2021 12 :00:00 AM EDT [facility] ([facility]) Z95.0 [id number] Pacemaker Problem 06/19/2021 12:00:00 AM ED T [facility] ([facility]) Z95.0 Permanent cardiac pacemaker Permanent cardiac pacemake r [id number] 04/28/2021 12:00:00 AM EDT [facility] Z95.2 Mitral valve replacement Mitral valve replacement 6457 200004/26/2021 12:00:00 AM EDT [facility] I05.1 Rheumatic mitral regurgitation Rheumatic mitral regurg itation [id number] 12/09/2020 12:00:00 AM EDT [facility] R09.89 Right carotid bruit Right carotid bruit [id number] 0 12/09/2020 12:00:00 AM EDT [facility] F17.200 Smoker Smoker [id number] 12/09/2020 12:00:00 AM ED T [facility] E78.00 Hypercholesterolemia Hypercholesterolemia [id number] 12/09/2020 12:00:00 AM EDT [facility] I73.9 Peripheral vascular disease Peripheral vascular diseas e [id number] 12/09/2020 12:00:00 AM EDT [facility] R06.02 Shortness of breath Shortness of breath [id number] 0 12/09/2020 12:00:00 AM EDT [facility] 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 Rheumatic mitral stenosis with insufficiency [id number] 12/09/2020 12:00:00 AM EDT [facility] N20.0 [id number] Kidney stones Problem 12/06/2020 12:00:00 AM EDT eCW1 ([facility]) E78.5 [id number] Acquired hyperlipoproteinemia Problem 2020 12:00:00 AM EDT eCW1 ([facility]) I05.2 [id number] Mitral stenosis with insufficiency, rheum atic Problem 12/06/2020 12:00:00 AM EDT eCW1 ([facility]) I73.9 [id number] Claudication of both lower extremities Pr oblem 11/05/2020 12:00:00 AM EST eCW1 ([facility]) Z00.00 [id number] Medicare annual wellness visit, subsequen t Problem 11/05/2020 12:00:00 AM EST eCW1 ([facility]) I73.9 Peripheral vascular disease PAD (peripheral artery dis ease) Problem 11/05/2020 12:00:00 AM EST eCW1 ([facility]) Surgeries/Procedures Procedure Description Date Indications Data Source(s) ECG ROUTINE ECG W/LEAST 12 LDS W/I&R 06/19/2021 12:00: 00 AM EDT eCW1 ([facility]) POCT AMB EKG <td>POCT AMB EKG</td><td>Rou twan</td><td>04/28/2021 3:53 PM EDT</td><td> Mitral valve replacement</td><td> </td> 04/28/2021 03:53:00 PM EDT Mitral valve replacement [facility] Mitral valve replacement XR CHEST PORTABLE <td>XR CHEST PORTABLE</td><t d>Pending Discharge</td><td>04/23/2021 5:03 PM EDT</td><td></td><td> </td> 04/23/2021 05:03:06 PM EDT [facility] XR CHEST PA AND LATERAL <td>XR CHEST PA AND LATERAL</td><td>Timed</td><td>04/23/2021 1:39 PM EDT</td><td></td><td> </td> 04/23/2021 01:39:13 PM EDT [facility] PROTHROMBIN TIME <td>PROTIME-INR</td><td>Rout ine</td><td>04/23/2021 12:12 PM EDT</td><td></td><td> </td> 04/23/2021 12:12:00 PM EDT [facility] BLOOD COUNT COMPLETE AUTOMATED <td>CBC</td><td>Timed</ td><td>04/23/2021 12:12 PM EDT</td><td></td><td> </td> 04/23/2021 12:12:00 PM EDT [facility] MAGNESIUM <td>MAGNESIUM</td><td>Timed< /td><td>04/23/2021 12:12 PM EDT</td><td></td><td> </td> 04/23/2021 12:12:00 PM EDT [facility] BASIC METABOLIC PANEL CALCIUM TOTAL <td>BASIC METABOLI C PANEL</td><td>Timed</td><td>04/23/2021 12:12 PM EDT</td><td></td><td> </td> 04/23/2021 12:12:00 PM EDT [facility] XR CHEST PA AND LATERAL <td>XR CHEST PA AND LATERAL</td><td>Routine</td><td>04/23/2021 8:01 AM EDT</td><td></td><td> </td> 04/23/2021 08:01:02 AM EDT [facility] ECG ROUTINE ECG W/LEAST 12 LDS TRCG ONLY W/O I&R <td>E CG 12- LEAD</td><td>Routine</td><td>04/23/2021 5:45 AM EDT</td><td></td><td></td> 04/23/2021 05:45:32 AM EDT [facility] XR CHEST PORTABLE <td>XR CHEST PORTABLE</td><t d>STAT</td><td>04/22/2021 6:39 PM EDT</td><td></td><td> </td> 04/22/2021 06:39:00 PM EDT [facility] FLUOROSCOPY SPX <1 HOUR PHYSICIAN TIME <td>XR FLUORO P ACEMAKER INSERT</td><td>STAT</td><td>04/22/2021 6:10 PM EDT</td><td></td><td> </td> 04/22/2021 06:10:22 PM EDT [facility] INSERTION, CARDIAC PACEMAKER, BIVENTRICULAR <td>INSERT ION, CARDIAC PACEMAKER, BIVENTRICULAR</td><td></td><td>04/22/2021 5:13 PM EDT</td><td> COMPLETE HEART BLOCK</td><td></td> 04/22/2021 05:13:00 PM EDT - 04/22/2021 06:45:00 PM EDT [facility] BLOOD TYPING ABO <td>TYPE AND SCREEN</td><td> Routine</td><td>04/22/2021 4:09 PM EDT</td><td></td><td> </td> 04/22/2021 04:09:00 PM EDT [facility] COVID/FLU AB/RSV PCR <td>COVID/FLU AB/RSV PCR</td ><td>STAT</td><td>04/22/2021 1:55 PM EDT</td><td></td><td> </td> 04/22/2021 01:55:00 PM EDT [facility] POTASSIUM SERUM PLASMA/WHOLE BLOOD <td>POTASSIUM</td>< td>STAT</td><td>04/22/2021 8:51 AM EDT</td><td></td><td> </td> 04/22/2021 08:51:00 AM EDT [facility] XR CHEST PORTABLE <td>XR CHEST PORTABLE</td><t d>Timed</td><td>04/22/2021 7:05 AM EDT</td><td></td><td> </td> 04/22/2021 07:05:10 AM EDT [facility] BLOOD COUNT COMPLETE AUTOMATED <td>CBC</td><td>Routine </td><td>04/22/2021 3:16 AM EDT</td><td></td><td> </td> 04/22/2021 03:16:00 AM EDT [facility] MAGNESIUM <td>MAGNESIUM</td><td>Routin e</td><td>04/22/2021 3:16 AM EDT</td><td></td><td> </td> 04/22/2021 03:16:00 AM EDT [facility] BASIC METABOLIC PANEL CALCIUM TOTAL <td>BASIC METABOLI C PANEL</td><td>Routine</td><td>04/22/2021 3:16 AM EDT</td><td></td><td> </td> 04/22/2021 03:16:00 AM EDT [facility] PROTHROMBIN TIME <td>PROTIME-INR</td><td>Rout ine</td><td>04/22/2021 3:09 AM EDT</td><td></td><td> </td> 04/22/2021 03:09:00 AM EDT [facility] PROTHROMBIN TIME <td>PROTIME-INR</td><td>Rout ine</td><td>04/21/2021 2:44 AM EDT</td><td></td><td> </td> 04/21/2021 02:44:00 AM EDT [facility] BLOOD COUNT COMPLETE AUTOMATED <td>CBC</td><td>Routine </td><td>04/21/2021 2:44 AM EDT</td><td></td><td> </td> 04/21/2021 02:44:00 AM EDT [facility] BASIC METABOLIC PANEL CALCIUM TOTAL <td>BASIC METABOLI C PANEL</td><td>Routine</td><td>04/21/2021 2:44 AM EDT</td><td></td><td> </td> 04/21/2021 02:44:00 AM EDT [facility] XR CHEST PORTABLE <td>XR CHEST PORTABLE</td><t d>Timed</td><td>04/20/2021 11:57 AM EDT</td><td></td><td> </td> 04/20/2021 11:57:44 AM EDT [facility] POTASSIUM SERUM PLASMA/WHOLE BLOOD <td>POTASSIUM</td><td>Routine</td><td>04/20/2021 11:12 AM EDT</td><td></td><td> </td> 04/20/2021 11:12:00 AM EDT [facility] GLUC BLD GLUC MNTR DEV CLEARED FDA SPEC HOME USE <td>P OCT GLUCOSE</td><td>Routine</td><td>04/20/2021 7:53 AM EDT</td><td></td><td> </td> 04/20/2021 07:53:00 AM EDT [facility] POTASSIUM SERUM PLASMA/WHOLE BLOOD <td>POTASSIUM</td>< td>STAT</td><td>04/20/2021 7:29 AM EDT</td><td></td><td> </td> 04/20/2021 07:29:00 AM EDT [facility] HEPATIC FUNCTION PANEL <td>HEPATIC FUNCTION PANEL</ td><td>Add- On</td><td>04/20/2021 7:29 AM EDT</td><td></td><td> </td> 04/20/2021 07:29:00 AM EDT [facility] PROTHROMBIN TIME <td>PROTIME-INR</td><td>Time d</td><td>04/20/2021 2:26 AM EDT</td><td></td><td> </td> 04/20/2021 02:26:00 AM EDT [facility] BLOOD COUNT COMPLETE AUTOMATED <td>CBC</td><td>Timed</ td><td>04/20/2021 2:26 AM EDT</td><td></td><td> </td> 04/20/2021 02:26:00 AM EDT [facility] MAGNESIUM <td>MAGNESIUM</td><td>Timed< /td><td>04/20/2021 2:26 AM EDT</td><td></td><td> </td> 04/20/2021 02:26:00 AM EDT [facility] CALCIUM IONIZED <td>CALCIUM, IONIZED</td><td >Timed</td><td>04/20/2021 2:26 AM EDT</td><td></td><td> </td> 04/20/2021 02:26:00 AM EDT [facility] BASIC METABOLIC PANEL CALCIUM TOTAL <td>BASIC METABOLI C PANEL</td><td>Timed</td><td>04/20/2021 2:26 AM EDT</td><td></td><td> </td> 04/20/2021 02:26:00 AM EDT [facility] GLUC BLD GLUC MNTR DEV CLEARED FDA SPEC HOME USE <td>P OCT GLUCOSE</td><td>Routine</td><td>04/19/2021 5:56 PM EDT</td><td></td><td> </td> 04/19/2021 05:56:00 PM EDT [facility] XR CHEST PORTABLE <td>XR CHEST PORTABLE</td><t d>Timed</td><td>04/19/2021 1:24 PM EDT</td><td></td><td> </td> 04/19/2021 01:24:15 PM EDT [facility] GLUC BLD GLUC MNTR DEV CLEARED FDA SPEC HOME USE <td>P OCT GLUCOSE</td><td>Routine</td><td>04/19/2021 1:00 PM EDT</td><td></td><td> </td> 04/19/2021 01:00:00 PM EDT [facility] GLUC BLD GLUC MNTR DEV CLEARED FDA SPEC HOME USE <td>P OCT GLUCOSE</td><td>Routine</td><td>04/19/2021 8:24 AM EDT</td><td></td><td> </td> 04/19/2021 08:24:00 AM EDT [facility] BASIC METABOLIC PANEL CALCIUM TOTAL <td>BASIC METABOLI C PANEL</td><td>Timed</td><td>04/19/2021 2:18 AM EDT</td><td></td><td> </td> 04/19/2021 02:18:00 AM EDT [facility] PROTHROMBIN TIME <td>PROTIME-INR</td><td>Time d</td><td>04/19/2021 2:18 AM EDT</td><td></td><td> </td> 04/19/2021 02:18:00 AM EDT [facility] BLOOD COUNT COMPLETE AUTOMATED <td>CBC</td><td>Timed</ td><td>04/19/2021 2:18 AM EDT</td><td></td><td> </td> 04/19/2021 02:18:00 AM EDT [facility] MAGNESIUM <td>MAGNESIUM</td><td>Timed< /td><td>04/19/2021 2:18 AM EDT</td><td></td><td> </td> 04/19/2021 02:18:00 AM EDT [facility] CALCIUM IONIZED <td>CALCIUM, IONIZED</td><td >Timed</td><td>04/19/2021 2:18 AM EDT</td><td></td><td> </td> 04/19/2021 02:18:00 AM EDT [facility] GLUC BLD GLUC MNTR DEV CLEARED FDA SPEC HOME USE <td>P OCT GLUCOSE</td><td>Routine</td><td>04/18/2021 6:40 PM EDT</td><td></td><td> </td> 04/18/2021 06:40:00 PM EDT [facility] GLUC BLD GLUC MNTR DEV CLEARED FDA SPEC HOME USE <td>P OCT GLUCOSE</td><td>Routine</td><td>04/18/2021 12:40 PM EDT</td><td></td><td> </td> 04/18/2021 12:40:00 PM EDT [facility] GLUC BLD GLUC MNTR DEV CLEARED FDA SPEC HOME USE <td>P OCT GLUCOSE</td><td>Routine</td><td>04/18/2021 9:44 AM EDT</td><td></td><td> </td> 04/18/2021 09:44:00 AM EDT [facility] POTASSIUM SERUM PLASMA/WHOLE BLOOD <td>POTASSIUM</td><td>Routine</td><td>04/18/2021 9:40 AM EDT</td><td></td><td> </td> 04/18/2021 09:40:00 AM EDT [facility] MAGNESIUM <td>MAGNESIUM</td><td>Routin e</td><td>04/18/2021 9:40 AM EDT</td><td></td><td> </td> 04/18/2021 09:40:00 AM EDT [facility] GLUC BLD GLUC MNTR DEV CLEARED FDA SPEC HOME USE <td>P OCT GLUCOSE</td><td>Routine</td><td>04/18/2021 6:07 AM EDT</td><td></td><td> </td> 04/18/2021 06:07:00 AM EDT [facility] GLUC BLD GLUC MNTR DEV CLEARED FDA SPEC HOME USE <td>P OCT GLUCOSE</td><td>Routine</td><td>04/18/2021 3:04 AM EDT</td><td></td><td> </td> 04/18/2021 03:04:00 AM EDT [facility] PROTHROMBIN TIME <td>PROTIME-INR</td><td>Time d</td><td>04/18/2021 3:00 AM EDT</td><td></td><td> </td> 04/18/2021 03:00:00 AM EDT [facility] BLOOD COUNT COMPLETE AUTOMATED <td>CBC</td><td>Timed</ td><td>04/18/2021 3:00 AM EDT</td><td></td><td> </td> 04/18/2021 03:00:00 AM EDT [facility] MAGNESIUM <td>MAGNESIUM</td><td>Timed< /td><td>04/18/2021 3:00 AM EDT</td><td></td><td> </td> 04/18/2021 03:00:00 AM EDT [facility] CALCIUM IONIZED <td>CALCIUM, IONIZED</td><td >Timed</td><td>04/18/2021 3:00 AM EDT</td><td></td><td> </td> 04/18/2021 03:00:00 AM EDT [facility] BASIC METABOLIC PANEL CALCIUM TOTAL <td>BASIC METABOLI C PANEL</td><td>Timed</td><td>04/18/2021 3:00 AM EDT</td><td></td><td> </td> 04/18/2021 03:00:00 AM EDT [facility] GLUC BLD GLUC MNTR DEV CLEARED FDA SPEC HOME USE <td>P OCT GLUCOSE</td><td>Routine</td><td>04/18/2021 12:29 AM EDT</td><td></td><td> </td> 04/18/2021 12:29:00 AM EDT [facility] GLUC BLD GLUC MNTR DEV CLEARED FDA SPEC HOME USE <td>P OCT GLUCOSE</td><td>Routine</td><td>04/17/2021 10:02 PM EDT</td><td></td><td> </td> 04/17/2021 10:02:00 PM EDT [facility] BLOOD COUNT COMPLETE AUTOMATED <td>CBC</td><td>STAT</t d><td>04/17/2021 9:03 PM EDT</td><td></td><td> </td> 04/17/2021 09:03:00 PM EDT [facility] POTASSIUM SERUM PLASMA/WHOLE BLOOD <td>POTASSIUM</td><td>Routine</td><td>04/17/2021 9:03 PM EDT</td><td></td><td> </td> 04/17/2021 09:03:00 PM EDT [facility] GLUC BLD GLUC MNTR DEV CLEARED FDA SPEC HOME USE <td>P OCT GLUCOSE</td><td>Routine</td><td>04/17/2021 7:57 PM EDT</td><td></td><td> </td> 04/17/2021 07:57:00 PM EDT [facility] GLUC BLD GLUC MNTR DEV CLEARED FDA SPEC HOME USE <td>P OCT GLUCOSE</td><td>Routine</td><td>04/17/2021 5:57 PM EDT</td><td></td><td> </td> 04/17/2021 05:57:00 PM EDT [facility] POC ARTERIAL BLOOD GAS <td>POC ARTERIAL BLOOD GAS</td><td>Routine</td><td>04/17/2021 5:18 PM EDT</td><td></td><td> </td> 04/17/2021 05:18:00 PM EDT [facility] GLUC BLD GLUC MNTR DEV CLEARED FDA SPEC HOME USE <td>P OCT GLUCOSE</td><td>Routine</td><td>04/17/2021 4:00 PM EDT</td><td></td><td> </td> 04/17/2021 04:00:00 PM EDT [facility] POTASSIUM SERUM PLASMA/WHOLE BLOOD <td>POTASSIUM</td>< td>STAT</td><td>04/17/2021 3:58 PM EDT</td><td></td><td> </td> 04/17/2021 03:58:00 PM EDT [facility] GLUC BLD GLUC MNTR DEV CLEARED FDA SPEC HOME USE <td>P OCT GLUCOSE</td><td>Routine</td><td>04/17/2021 2:28 PM EDT</td><td></td><td> </td> 04/17/2021 02:28:00 PM EDT [facility] GLUC BLD GLUC MNTR DEV CLEARED FDA SPEC HOME USE <td>P OCT GLUCOSE</td><td>Routine</td><td>04/17/2021 1:31 PM EDT</td><td></td><td> </td> 04/17/2021 01:31:00 PM EDT [facility] GLUC BLD GLUC MNTR DEV CLEARED FDA SPEC HOME USE <td>P OCT GLUCOSE</td><td>Routine</td><td>04/17/2021 12:30 PM EDT</td><td></td><td> </td> 04/17/2021 12:30:00 PM EDT [facility] POC CALCIUM BG <td>POC CALCIUM BG</td><td>R outine</td><td>04/17/2021 11:58 AM EDT</td><td></td><td> </td> 04/17/2021 11:58:00 AM EDT [facility] POC ARTERIAL BLOOD GAS <td>POC ARTERIAL BLOOD GAS</td><td>Routine</td><td>04/17/2021 11:52 AM EDT</td><td></td><td> </td> 04/17/2021 11:52:00 AM EDT [facility] XR CHEST PORTABLE <td>XR CHEST PORTABLE</td><t d>STAT</td><td>04/17/2021 11:45 AM EDT</td><td></td><td> </td> 04/17/2021 11:45:26 AM EDT [facility] ECG ROUTINE ECG W/LEAST 12 LDS TRCG ONLY W/O I&R <td>E CG 12- LEAD</td><td>Routine</td><td>04/17/2021 11:19 AM EDT</td><td></td><td></td> 04/17/2021 11:19:23 AM EDT [facility] GLUC BLD GLUC MNTR DEV CLEARED FDA SPEC HOME USE <td>P OCT GLUCOSE</td><td>Routine</td><td>04/17/2021 11:18 AM EDT</td><td></td><td> </td> 04/17/2021 11:18:00 AM EDT [facility] BLOOD COUNT COMPLETE AUTOMATED <td>CBC</td><td>STAT</t d><td>04/17/2021 11:16 AM EDT</td><td></td><td> </td> 04/17/2021 11:16:00 AM EDT [facility] MAGNESIUM <td>MAGNESIUM</td><td>STAT</ td><td>04/17/2021 11:16 AM EDT</td><td></td><td> </td> 04/17/2021 11:16:00 AM EDT [facility] CALCIUM IONIZED <td>CALCIUM, IONIZED</td><td >STAT</td><td>04/17/2021 11:16 AM EDT</td><td></td><td> </td> 04/17/2021 11:16:00 AM EDT [facility] BASIC METABOLIC PANEL CALCIUM TOTAL <td>BASIC METABOLI C PANEL</td><td>STAT</td><td>04/17/2021 11:16 AM EDT</td><td></td><td> </td> 04/17/2021 11:16:00 AM EDT [facility] POC ARTERIAL BLOOD GAS W LYTES <td>POC ARTERIAL BLOOD GAS W LYTES</td><td>Routine</td><td>04/17/2021 10:35 AM EDT</td><td></td><td> </td> 04/17/2021 10:35:00 AM EDT [facility] POC ACT <td>POC ACT</td><td>Routine< /td><td>04/17/2021 10:34 AM EDT</td><td></td><td> </td> 04/17/2021 10:34:00 AM EDT [facility] THROMBOPLASTIN TIME PARTIAL PLASMA/WHOLE BLOOD <td>APTT</td><td>Routine</td><td>04/17/2021 10:32 AM EDT</td><td></td><td> </td> 04/17/2021 10:32:00 AM EDT [facility] PROTHROMBIN TIME <td>PROTIME-INR</td><td>Rout ine</td><td>04/17/2021 10:32 AM EDT</td><td></td><td> </td> 04/17/2021 10:32:00 AM EDT [facility] POC ARTERIAL BLOOD GAS W LYTES <td>POC ARTERIAL BLOOD GAS W LYTES</td><td>Routine</td><td>04/17/2021 9:45 AM EDT</td><td></td><td> </td> 04/17/2021 09:45:00 AM EDT [facility] POC VENOUS BLOOD GAS W LYTES <td>POC VENOUS BLOOD GAS W LYTES</td><td>Routine</td><td>04/17/2021 9:41 AM EDT</td><td></td><td> </td> 04/17/2021 09:41:00 AM EDT [facility] POC ACT <td>POC ACT</td><td>Routine< /td><td>04/17/2021 9:40 AM EDT</td><td></td><td> </td> 04/17/2021 09:40:00 AM EDT [facility] POC VENOUS BLOOD GAS W LYTES <td>POC VENOUS BLOOD GAS W LYTES</td><td>Routine</td><td>04/17/2021 9:12 AM EDT</td><td></td><td> </td> 04/17/2021 09:12:00 AM EDT [facility] POC ACT <td>POC ACT</td><td>Routine< /td><td>04/17/2021 9:11 AM EDT</td><td></td><td> </td> 04/17/2021 09:11:00 AM EDT [facility] POC ARTERIAL BLOOD GAS W LYTES <td>POC ARTERIAL BLOOD GAS W LYTES</td><td>Routine</td><td>04/17/2021 8:44 AM EDT</td><td></td><td> </td> 04/17/2021 08:44:00 AM EDT [facility] POC ACT <td>POC ACT</td><td>Routine< /td><td>04/17/2021 8:43 AM EDT</td><td></td><td> </td> 04/17/2021 08:43:00 AM EDT [facility] LEVEL IV SURG PATHOLOGY GROSS&MICROSCOPIC EXAM <td>[facility] HISTOLOGY</td><td>Routine</td><td>04/17/2021 8:19 AM EDT</td><td></td><td> </td> 04/17/2021 08:19:00 AM EDT [facility] POC ARTERIAL BLOOD GAS W LYTES <td>POC ARTERIAL BLOOD GAS W LYTES</td><td>Routine</td><td>04/17/2021 7:45 AM EDT</td><td></td><td> </td> 04/17/2021 07:45:00 AM EDT [facility] POC ACT <td>POC ACT</td><td>Routine< /td><td>04/17/2021 7:44 AM EDT</td><td></td><td> </td> 04/17/2021 07:44:00 AM EDT [facility] REPAIR OR REPLACEMENT, MITRAL VALVE, MIN IMALLY INVASIVE, RIGHT THORACOTOMY APPROACH, USING HEARTPORT TECHNIQUE <td>REPAIR OR REPLACEMENT, MITRAL VALVE, MINIMALLY INVASIVE, RIGHT THORACOTOMY APPROACH, USING HEARTPORT TECHNIQUE</td><td></td><td>04/17/2021 7:24 AM EDT</td><td> Rheumatic mitral regurgitation</td><td></td> 04/17/2021 07:24:00 AM EDT - 04/17/2021 11:55:00 AM EDT Rheumatic mitral regurgitation [facility] Rheumatic mitral regurgitation ECG TRANSESOPHAG R-T 2D W/PRB IMG ACQUISJ I&R <td>ECHO CARDIOGRAM TRANSESOPHAGEAL</td><td>Routine</td><td>04/17/2021 7:21 AM EDT</td><td></td><td> </td> 04/17/2021 07:21:51 AM EDT [facility] GLUC BLD GLUC MNTR DEV CLEARED FDA SPEC HOME USE <td>P OCT GLUCOSE</td><td>Routine</td><td>04/17/2021 6:27 AM EDT</td><td></td><td> </td> 04/17/2021 06:27:00 AM EDT [facility] BLOOD TYPING ABO <td>PREPARE RBC</td><td>Rout ine</td><td>04/17/2021 12:01 AM EDT</td><td></td><td> </td> 04/17/2021 12:01:00 AM EDT [facility] ECG ROUTINE ECG W/LEAST 12 LDS TRCG ONLY W/O I&R <td>E CG 12- LEAD</td><td>Routine</td><td>04/14/2021 10:03 AM EDT</td><td> Rheumatic mitral regurgitation</td><td></td> 04/14/2021 10:03:21 AM EDT Rheumatic mitral regurgitation [facility] Rheumatic mitral regurgitation URNLS DIP STICK/TABLET RGNT AUTO W/O MICROSCOPY <td>UR INALYSIS W/O MICRO</td><td>Routine</td><td>04/14/2021 10:00 AM EDT</td><td> Rheumatic mitral regurgitation</td><td> </td> 04/14/2021 10:00:00 AM EDT Rheumatic mitral regurgitation [facility] Rheumatic mitral regurgitation ROOM TEMP AB SCREEN <td>ROOM TEMP AB SCREEN</td> <td>Routine</td><td>04/14/2021 9:40 AM EDT</td><td> Rheumatic mitral regurgitation</td><td> </td> 04/14/2021 09:40:00 AM EDT Rheumatic mitral regurgitation [facility] Rheumatic mitral regurgitation NT PRO BNP <td>NT PRO BNP</td><td>Routi ne</td><td>04/14/2021 9:40 AM EDT</td><td> Rheumatic mitral regurgitation</td><td> </td> 04/14/2021 09:40:00 AM EDT Rheumatic mitral regurgitation [facility] Rheumatic mitral regurgitation THROMBOPLASTIN TIME PARTIAL PLASMA/WHOLE BLOOD <td>APTT</td><td>Routine</td><td>04/14/2021 9:40 AM EDT</td><td> Rheumatic mitral regurgitation</td><td> </td> 04/14/2021 09:40:00 AM EDT Rheumatic mitral regurgitation [facility] Rheumatic mitral regurgitation PROTHROMBIN TIME <td>PROTIME-INR</td><td>Rout ine</td><td>04/14/2021 9:40 AM EDT</td><td> Rheumatic mitral regurgitation</td><td> </td> 04/14/2021 09:40:00 AM EDT Rheumatic mitral regurgitation [facility] Rheumatic mitral regurgitation BLOOD COUNT COMPLETE AUTO&AUTO DIFRNTL WBC COUNT <td>C BC AND DIFFERENTIAL</td><td>Routine</td><td>04/14/2021 9:40 AM EDT</td><td> Rheumatic mitral regurgitation</td><td> </td> 04/14/2021 09:40:00 AM EDT Rheumatic mitral regurgitation [facility] Rheumatic mitral regurgitation BLOOD TYPING ABO <td>TYPE AND SCREEN</td><td> Routine</td><td>04/14/2021 9:40 AM EDT</td><td> Rheumatic mitral regurgitation</td><td> </td> 04/14/2021 09:40:00 AM EDT Rheumatic mitral regurgitation [facility] Rheumatic mitral regurgitation HEMOGLOBIN GLYCOSYLATED A1C <td>HEMOGLOBIN A1C</td><td>Routine</td><td>04/14/2021 9:40 AM EDT</td><td> Rheumatic mitral regurgitation</td><td> </td> 04/14/2021 09:40:00 AM EDT Rheumatic mitral regurgitation [facility] Rheumatic mitral regurgitation COMPREHENSIVE METABOLIC PANEL <td>COMPREHENSIVE METABO LIC PANEL</td><td>Routine</td><td>04/14/2021 9:40 AM EDT</td><td> Rheumatic mitral regurgitation</td><td> </td> 04/14/2021 09:40:00 AM EDT Rheumatic mitral regurgitation [facility] Rheumatic mitral regurgitation POC ARTERIAL BLOOD GAS <td>POC ARTERIAL BLOOD GAS</td><td>Routine</td><td>04/14/2021 9:38 AM EDT</td><td></td><td> </td> 04/14/2021 09:38:00 AM EDT [facility] Bronchospasm Evaluation 03/20/2021 12:00:00 AM EDT [facility] ([facility]) Plethysmography Determination Lung Volumes & Per Airway Resi st 03/20/2021 12:00:00 AM EDT [facility] ([facility]) DIFFUSING CAPACITY 03/20/2021 12:00:00 AM EDT [facility] ([facility]) ECG ROUTINE ECG W/LEAST 12 LDS W/I&R <td>POCT AMB EKG</td><td>Routine</td><td>02/06/2021 5:47 PM EDT</td><td> Rheumatic mitral stenosis with insufficiency</td><td> </td> 02/06/2021 05:47:00 PM EDT Rheumatic mitral stenosis with insufficiency [facility] Rheumatic mitral stenosis with insuffici ency OFFICE OUTPATIENT VISIT 15 MINUTES 01/15/2021 12:00:00 AM EDT [facility] ([facility] ECG ROUTINE ECG W/LEAST 12 LDS W/I&R <td>POCT AMB EKG</td><td>Routine</td><td>01/06/2021</td><td> Shortness of breath</td><td> </td> 01/06/2021 12:00:00 AM EDT Shortness of breath [facility] Shortness of breath RADEX SPINE ENTIRE SURVEY STD ANTEROPOST&LAT <td>CARDI AC CATHETERIZATION</td><td>Routine</td><td>12/10/2020 1:25 PM EDT</td><td> Shortness of breath Rheumatic mitral regurgitation Rheumatic mitral stenosis with insufficiency Peripheral vascular disease Hypercholesterolemia Smoker Right carotid bruit</td><td> </td> 12/10/2020 05:25:21 PM EDT Right carotid bruitSmokerHypercholestero lemiaPeripheral vascular diseaseRheumatic mitral stenosis with insufficiencyRheumatic mitral regurgitationShortness of breath [facility] Right carotid bruit Smoker Hypercholesterolemia Peripheral vascular disease Rheumatic mitral stenosis with insuffici ency Rheumatic mitral regurgitation Shortness of breath COVID/FLU AB/RSV PCR <td>COVID/FLU AB/RSV PCR</td ><td>STAT</td><td>12/10/2020 9:50 AM EDT</td><td></td><td> </td> 12/10/2020 01:50:00 PM EDT [facility] BLOOD COUNT COMPLETE AUTOMATED <td>CBC</td><td>STAT</t d><td>12/10/2020 9:36 AM EDT</td><td></td><td> </td> 12/10/2020 01:36:00 PM EDT [facility] BASIC METABOLIC PANEL CALCIUM TOTAL <td>BASIC METABOLI C PANEL</td><td>STAT</td><td>12/10/2020 9:36 AM EDT</td><td></td><td> </td> 12/10/2020 01:36:00 PM EDT [facility] ECG ROUTINE ECG W/LEAST 12 LDS W/I&R <td>POCT AMB EKG</td><td>Routine</td><td>12/09/2020 10:59 AM EDT</td><td> Shortness of breath</td><td> </td> 12/09/2020 02:59:00 PM EDT Shortness of breath [facility] Shortness of breath OFFICE OUTPATIENT NEW 30 MINUTES 11/26/2020 12:00:00 A M EDT [facility] ([facility]) Results ID Date Data Source US Duplex, Ext LOWER Veins, Unilat 06/20/2021 12:00:00 AM ED T eC ([facility]) Name Value Range Interpretation Code Description Data Romi rce(s) Supporting Document(s) US Duplex, Ext LOWER Vein s, Unilat [facility] ([facility]) ID Date Data Source [id number] 05/21/2021 06:14:57 PM [facility] INFORMATIONPatient MRN Name Date of Age Gend*PT [id number] AndrewsAdrian 1970 50 years M ---PT Location Admission Date/Time Visit ID Attending Provider --- --- --- --- EPI ID CSN Admitting Provider [id number] ---Agree with the proposed plan. Name Value Range Interpretation Code Description Data Romi rce(s) Supporting Document(s) ID Date Data Source [id number] 05/08/2021 05:44:19 PM EDT [facility] INFORMATIONPatient MRN Name Date of Age Gend*PT [id number] Adrian Andrews 1970 50 years M IPPT Location Admission Date/Time Visit ID Attending [id number] 04/17/21 0518 --- --- EPI ID CSN Admitting Provider [id number] [phone] Chandler Corrigan MD([id number]) [place] [address] OPERATIVE REPORT OPNAME: ADRIAN ANDREWS#: [id number] #: [id number] ADMISSION DATE: 04/17/2021OB: 1970 SEX: M PT TYPE: I CardACCT #: [id number] CARE PHYSICIAN: MAURICIO JIMENEZHAHNDATE OF OPERATION: 04/17/2021REOPERATIVE DIAGNOSES:Severe symptomatic mitral stenosis and mitral regurgitation.POSTOPERATIVE DIAGNOSES:Severe symptomatic mitral stenosis and mitral regurgitation.PROCEDURE:Minimally invasive mitral valve replacement consisting of #29 MedtronicMosaic bioprosthetic valve.SURGEON:Chandler Corrigan MDASSISTANT:CARIN Carmona.ANESTHESIA:General endotracheal.ANESTHESIOLOGIST:Rowan Macedo MDINDICATIONS FOR PROCEDURE:Patient is a pleasant 50-year-old gentleman with a possible history ofrheumatic fever in the past, who has developed [place] Heart Associationclass III symptoms and was found tohave evidence of at least moderate mitral stenosis and mxglvhxh-gp-lyikxvtugblb regurgitation. This was clearly a mixed picture [...] the Cardiovascular Intensive CareUnit.KALLIE Valdes/NAVEEN Job #: [id number] DOC #: [id number]: Primary Care Physician Toby Parish MD Name Value Range Interpretation Code Description Data Romi rce(s) Supporting Document(s) ID Date Data Source [id number] 04/23/2021 05:06:19 PM EDT [address] [address]Mqolpdg Name: ADRIAN Jesus SIMONDOB: 1970Sex: MOrdering Provider: RALPH BENITEZuthmuzing Prov: RALPH FRANKLINReferralexsandra Provider: Procedure Performed: / XR CHEST PORTABLEExam Date: 04/23/2021 17:03MRN: [id number] Number: [id number] Class: InpatientAccount #: [id number] for Exam: F/U PneumothoraxTechnique: AP portable view obtained.Comparison: 04/23/2021Findings: Small right apical pneumothorax unchanged compared to prior exam.Small right pleural effusion. Airspace consolidation right lung base likely representing atelectasis. Small amount of atelectasis medial left lung base unchanged.Pacemaker unchanged.IMPRESSION: Small right apical pneumothorax unchanged compared to prior exam.Report electronically signed by: AZALEA BAL On 04/23/2021 5:06 PMWorkstation ID: [id number] Name Value Range Interpretation Code Description Data Romi rce(s) Supporting Document(s) ID Date Data Source [id number] 04/23/2021 03:35:06 PM EDT [facility] INFORMATIONPatient MRN Name Date of Age Gend*PT [id number] Adrian Andrews 1970 50 years M IPPT Location Admission Date/Time Visit ID Attending [id number] 04/17/21 0518 --- Chandler Corrigan MD([id number]) EPI ID CSN Admitting Provider [id number] [id number] Chandler Corrigan MD([id number]) Attestation signed by Rachel Drummond MD at 04/23/2021 3:35 PMI saw and evaluated the patient and reviewed the note. I agree with thehistory, physical and medical decision making.Signature: Rachel Drummond MDDate: April 23, 2021Time: 3:34 PM --Surgical Discharge SummaryAdrian Lee [facility] CenterN: [id number] date: 04/17/2021dmitting Physician: PRESLEY Valdesischarge date and time:Discharge Orders Placed(From admission, onward) NoneDischarge Physician: Ike Arreaga Diagnosis: Rheumatic mitral regurgitationSecondary Diagnoses:Active Hospital Problems Diagnosis Date Noted Rheumatic mitral regurgitation 12/09/2020 Added automatically from request for surgery [id number] ProblemsNo resolved problems to display.Discharge Medications: [...] with Dr. Corrigan in 1 week, with senior principal process engineer Dr. Parish in2-3 weeks, and with PCP [...] rce(s) Supporting Document(s) ID Date Data Source [id number] 04/23/2021 01:43:11 PM EDT [address] [address]Ehodfkf Name: ADRIAN SUMNERB: 1970Sex: MOrdering Provider: ADRIANA MONTEMAYORAuthorizing Prov: ADRIANA MONTEMAYORReferralexsandra Provider: Procedure Performed: / XR CHEST PA AND LATERALExam Date: 04/23/2021 13:39MRN: [id number] Number: [id number] Class: InpatientAccount #: [id number] for Exam: chest tube removal, PTXTechnique: PA [...] AZALEA BAL On 04/23/2021 1:43 PMWorkstation ID: [id number] - [id number] Name Value Range Interpretation Code Description Data Romi rce(s) Supporting Document(s) ID Date Data Source [id number] 04/23/2021 02:57:39 PM EDT [facility] Name Value Range Interpretation Code Description Data Romi rce(s) Supporting Document(s) MAGNESIUM 2.6 mg/dL (1.7-2.4) H [facility] ID Date Data Source [id number] 04/23/2021 02:57:39 PM EDT [facility] Name Value Range Interpretation Code Description Data Romi rce(s) Supporting Document(s) SODIUM 137 mmol/L (136-145) [facility] POTASSIUM 4.5 mmol/L (3.6-5.2) [facility] CHLORIDE 103 mmol/L (100-108) [facility] CO2 26 mmol/L (22-31) [facility] ANION GAP 8 mmol/L (7-16) [facility] UREA NITROGEN 12 mg/dL (7-24) [facility] CREATININE 1.11 mg/dL (0.80-1.30) [facility] BUN/CREAT RATIO 10.8 RATIO (10.0-20.0) [facility] GLUCOSE 74 mg/dL (70-99) [facility] CALCIUM 8.9 mg/dL (8.4-10.2) [facility] GFR >60 ml/min/1.73m2 (>59) [facility] GFR ( AMER) >60 ml/min/1.73m2 (>59) [facility] GFR INTERPRETATION [facility] --NORMAL KIDNEY FUNCTION OR MILD DISEASE - GFR >OR= 60CHRONIC KIDNEY DISEASE - GFR 15 - 59RENAL FAILURE - GFR <15 Est. GFR calculation based on the MDRDstudy equation, which assumes a steadystate for creatinine. Est. GFR should notbe used for medication dosing. ID Date Data Source [id number] 04/23/2021 02:22:41 PM EDT [facility] Name Value Range Interpretation Code Description Data Romi rce(s) Supporting Document(s) WBC 7.5 10*3/uL (4.1-11.0) [facility] [place] RBC 3.70 10*6/uL (4.60-6.10) L [facility] HGB 11.1 g/dL (13.5-18.0) L [facility] HCT 33.9 % (41.0-53.0) L [facility] MCV 91.5 fL (80.0-95.0) [facility] MCH 29.8 pg (27.0-32.0) [facility] MCHC 32.6 g/dL (32.0-36.0) [facility] RDW 15.7 % (10.5-14.5) H [facility] PLT 171 10*3/uL (150-450) [facility] MPV 9.5 fL (7.1-10.7) [facility] ID Date Data Source [id number] 04/23/2021 02:15:53 PM EDT [facility] Name Value Range Interpretation Code Description Data Romi rce(s) Supporting Document(s) PT 13.4 s (9.2-11.9) H [facility] INR 1.30 [facility] SUGGESTED THERAPEUTIC RANGES USING INR F ORSTABILIZED ANTICOAGULATED PATIENTS:STANDARD DOSE THERAPY INR 2.0-3.0 DVT, PE, PREVENT DVT OR EMBOLISMHIGH DOSE THERAPY INR 2.5-3.5 PREVENT EMBOLISM FROM MECHANICAL HEART VALVE ID Date Data Source [id number] 04/23/2021 09:48:43 AM EDT [facility] Name Value Range Interpretation Code Description Data Romi rce(s) Supporting Document(s) EKG [facility] OJNHGw7sOyLWUaDar3XfJcNoZVKwLM4ttrr2P4K8vHBlA3GljRTup4ieC2TmY6AeOZMzHPOVFF5DcVGl jb2 [file] mO+YVOXFmpRFdeH4bAye1yB9w0Di5YvYQatA4GYbVj2X7berz7IYoNCNj3VbsV1EmrE9F0CqahHFy+SHIP SURVEYOR [file] j7rwG9a0fP0Vnfa+HCY38ZsNrt7Z03LMQPEdTk60eGKK6Jgpyx4mdbCDNYeDBJJYTaSnJBKKDCJVM+Сергей [file] information technology lT3jRqFsfm5kvjL+Z2xYJ6my4HWsP1Ws0YP6W8DIypio0nBkXiBl6uFE2wRhnHfgdlC+bx3rBqy3ZeKv Gh3gmFe9BjyDWdgZ+9PI+azUVznrWHoa/Z5t/i3rvWYotw1tAsofq8N8mgSbiR2t7DZO8/ls+42YlPS0 1BU92/u954fG7uA972Q99yt/9rby1t+tjihFna9Hec [file] bvhOYiX565eOPiCrcphBaPQ/s+R+wp9fwVxhG [file] MDAwMDAgbiAKMDAwMDAwMTQwNiAwMDAwMCBuIAowMD OkEND8VeJwNZRbWLInRP6kVrOhLZIhTHK7TGpjWSNhDFXzhzZINLYvWCAzYDogKHHoWUYiCWPfJSfbEG HxGAXdOGO7UOZbOHHaYH3kZnStZCXxYDLqNIFiRzP8WbTzWnHWjXNyxPluknv7DSucX4h6TRWcNJsyDY 7tjlNsQFIxYfwvHn9kpXD0MWNeDmaAGd1Qo1FvmqY7unVhQlLtZoGdXjtuNZQUZm== ID Date Data Source [id number] 04/23/2021 08:11:59 AM EDT [address] [address]Ljjjkyh Name: ADRIAN ANDREWSWAN: 1970Sex: MOrdering Provider: ALVERTO Sneed Prov: ALVERTO Becker Provider: Procedure Performed: / XR CHEST PA AND LATERALExam Date: 04/23/2021 08:01MRN: [id number] Number: [id number] Class: InpatientAccount #: [id number] for Exam: ATX/effusionsTechnique: PA and lateral views [...] AZALEA PLAZA On 04/23/2021 8:11 AMWorkstation ID: [id number] - [id number] Name Value Range Interpretation Code Description Data Romi rce(s) Supporting Document(s) ID Date Data Source [id number] 04/22/2021 06:41:59 PM EDT [address] [address]Tfojjew Name: ADRIAN SUMNERB: 1970Sex: MOrdering Provider: ALVERTO Sneed Prov: ALVERTO Becker Provider: Procedure Performed: / XR CHEST PORTABLEExam Date: 04/22/2021 18:39MRN: [id number] Number: [id number] Class: InpatientAccount #: [id number] for Exam: in PACU- s/p PPMTechnique: AP portable view obtained.Comparison: 04/22/2021 0659 hoursFindings: Pacemaker appears be in satisfactory position. No pneumothorax. Right-sided chest tube in place. Mild bibasilar atelectasis. Mediastinum unrema rkable.IMPRESSION: Pacemaker appears to be in satisfactory position. No pneumothorax. Mild bibasilar atelectasis.Report electronically signed by: AZALEA BAL On 04/22/2021 6:41 PMWorkstation ID: [id number] - [id number] Name Value Range Interpretation Code Description Data Romi rce(s) Supporting Document(s) ID Date Data Source [id number] 04/22/2021 06:20:30 PM EDT [facility] INFORMATIONPatient MRN Name Date of Age Gend*PT [id number] Adrian Andrews 1970 50 years M IPPT Location Admission Date/Time Visit ID [facility] 0518 --- Chandler Corrigan MD([id number]) EPI ID CSN Admitting Provider [id number] Chandler Corrigan MD([id number])Permanent Pacemaker ImplantationCardiovascular and Thoracic Surgery Operative ReportDate of Procedure: 04/22/2021 Patient's PCP: URI HENDRICKSatient Name: Adrian Andrews 50 years maleDate of :1970MRN: [id number]: [id number]: [facility] Note Date and Time: 04/22/2021 6:17 PMDate of Admission: 04/17/2021 5:18 AMSurgeon(s): Surgeon(s):Gray Negrete Physician:Dr. Chioperative diagnoses:1. Post Mitral Surgery Third Degree AV BlockPostoperative diagnoses:1. Post Mitral Surgery Third Degree AV BlockProcedure:1. DDD Dual Chamber Pacemaker ImplantationSurgeon:Rachel Drummond MDAnesthesia:Peter Provider(s):Anesthesiologist: Nick Senior MD; YUNIOR JenkinsRNA: Mercedes Beltran CRNAEstimated Blood Loss:20 ccStaff:OR Tube Test Technician: Destinee Montemayor RN; Pepper Page RNRadiology Tech: Bernardo Bello Scrub Person: Jcarlos Patricia Nurse: Chayito Montes RNImplants:Medtronic Pacemaker Model [place] serial # [id number] was placedAtrial Lead Model # 4076-52 Serial Number [id number]: Threshold AF, Iahuslcgu775 Ohms.Ventricular Lead Model # 4076-58 Serial Number [id number]: Threshold 0.75 V,Impedance 817 Ohms.Description of Procedure:After [...] recovery room in stable condition.Rachel Drummond MD [facility] FACSCardiovascular Thoracic Surgery04/22/2021, 6:17 PM Name Value Range Interpretation Code Description Data Romi rce(s) Supporting Document(s) ID Date Data Source [id number] 04/22/2021 06:13:55 PM EDT [address] [address]Ilpeihh Name: ADRIAN WADE: 1970Sex: MOrdering Provider: RACHEL DRUMMONDAuthorizing Prov: RACHEL DRUMMONDReferralexsandra Provider: Procedure Performed: / XR FLUORO PACEMAKER INSERTExam Date: 04/22/2021 18:10MRN: [id number] Number: [id number] Class: InpatientAccount #: [id number] for Exam: heart blockTechnique: Fluoroscopy with no digital spot images obtained.Fluoroscopy time: 103 SecondsNumber of Spot Images:Comparison: NoneFindings: Fluoroscopy performed during pacemaker insertion procedure.IMPRESSION: Fluoroscopy performed during pacemaker insertion procedure. One image obtained.Report electronically signed by: AZALEA BAL On 04/22/2021 6:13 PMWorkstation ID: [id number] - PS360 Name Value Range Interpretation Code Description Data Romi rce(s) Supporting Document(s) ID Date Data Source [id number] 04/22/2021 04:45:15 PM EDT [facility]PAT[facility] NT INFORMATIONPatient MRN Name Date of Age Gend*PT [id number] Adrian Andrews Jesus 1970 50 years M IPPT Location Admission Date/Time Visit ID Attending [id number] 04/17/21 0518 --- Chandler Corrigan MD([id number]) EPI ID CSN Admitting Provider [id number] Chandler Corrigan MD([id number])H&P and daily progress notes since admission reviewed. Changes to the patient'scondition since admission have been documented in the progress notes and noted.Rachel Drummond MD4:44 PM Name Value Range Interpretation Code Description Data Romi rce(s) Supporting Document(s) ID Date Data Source [id number] 04/22/2021 06:22:24 PM EDT [facility] SPEC EXP DATE 04/25/2021ATI ENT ABO/Rh O NEGATIVEANTIBODY SCREEN NEGATIVETESTING SITE PERFORMED AT [address] [place] [address]MMWKT BANK COMMENT BLOOD TYPE CONFIRMED. Name Value Range Interpretation Code Description Data Romi rce(s) Supporting Document(s) TYPE AND SCREEN [facility] ID Date Data Source [id number] 04/22/2021 01:55:00 PM EDT [facility] Name Value Range Interpretation Code Description Data Romi rce(s) Supporting Document(s) SARS coronavirus 2 RNA [Presence] in Res piratory specimen by LEON with probe detection NOT DETECTED [facility] This lab was reported by [facility]. ID Date Data Source [id number] 04/22/2021 04:27:15 PM EDT [facility] Name Value Range Interpretation Code Description Data Romi rce(s) Supporting Document(s) SPECIMEN DESCRIPTION [facility] INFLUENZA A (NEG) [facility] INFLUENZA B (NEG) [facility] RSV (NEG) [facility] COMMENT [facility] THE [place] FDA HAS MADE THIS TEST AVAILABL EUNDER AN EMERGENCY USE AUTHORIZATION(EUA) FOR THE DETECTION AND/OR DIAGNOSISOF THE VIRUS THAT CAUSES COVID-19.PERFORMED AT [address] [place] [address] COVID19 RESULT (NDET) [facility] THIS ASSAY AMPLIFIES AND DETECTSTHE TARG ET RNA USING REAL-TIME PCR.TESTING PERFORMED ON [facility] GENEXPERTNEGATIVE 2019_NCOV RT-PCR RESULTS DONOT PRECLUDE 2019_NCOV INFECTION ANDSHOULD NOT BE USED THE SOLE BASISFOR PATIENT MANAGEMENT DECISIONS. FIRST TEST [facility] EMPLOYED IN HLTHCARE [facility] SYMPTOMATIC [facility] DATE OF SYMPT ONSET [facility] HOS[facility]ED [facility] ICU [facility] CONGREGATE CARE SET [facility] ID Date Data Source [id number] 04/22/2021 10:33:39 AM EDT [facility] Name Value Range Interpretation Code Description Data Romi rce(s) Supporting Document(s) POTASSIUM 4.3 mmol/L (3.6-5.2) [facility] ID Date Data Source [id number] 04/22/2021 07:54:56 AM EDT [address] [address]Amygmte Name: ADRIAN SUMNERB: 1970Sex: MOrdering Provider: MAURICIO Chen Prov: MAURICIO SAUCEDAReferralexsandra Provider: Procedure Performed: / XR CHEST PORTABLEExam Date: 04/22/2021 07:05MRN: [id number] Number: [id number] Class: InpatientAccount #: [id number] for Exam: PneumoniaTechnique: AP portable view obtained.Comparison: [...] AZALEA PLAZA On 04/22/2021 7:54 AMWorkstation ID: [id number] - [id number] Name Value Range Interpretation Code Description Data Romi rce(s) Supporting Document(s) ID Date Data Source [id number] 04/22/2021 04:41:34 AM EDT [facility] Name Value Range Interpretation Code Description Data Romi rce(s) Supporting Document(s) MAGNESIUM 2.0 mg/dL (1.7-2.4) [facility] ID Date Data Source [id number] 04/22/2021 04:41:34 AM EDT [facility] Name Value Range Interpretation Code Description Data Romi rce(s) Supporting Document(s) SODIUM 139 mmol/L (136-145) [facility] POTASSIUM 4.0 mmol/L (3.6-5.2) [facility] CHLORIDE 107 mmol/L (100-108) [facility] CO2 27 mmol/L (22-31) [facility] ANION GAP 5 mmol/L (7-16) L [facility] UREA NITROGEN 11 mg/dL (7-24) [facility] CREATININE 0.92 mg/dL (0.80-1.30) [facility] BUN/CREAT RATIO 12.0 RATIO (10.0-20.0) [facility] GLUCOSE 89 mg/dL (70-99) [facility] CALCIUM 8.4 mg/dL (8.4-10.2) [facility] GFR >60 ml/min/1.73m2 (>59) [facility] GFR ( AMER) >60 ml/min/1.73m2 (>59) [facility] GFR INTERPRETATION [facility] --NORMAL KIDNEY FUNCTION OR MILD DISEASE - GFR >OR= 60CHRONIC KIDNEY DISEASE - GFR 15 - 59RENAL FAILURE - GFR <15 Est. GFR calculation based on the MDRDstudy equation, which assumes a steadystate for creatinine. Est. GFR should notbe used for medication dosing. ID Date Data Source [id number] 04/22/2021 04:05:45 AM EDT [facility] Name Value Range Interpretation Code Description Data Romi rce(s) Supporting Document(s) WBC 6.9 10*3/uL (4.1-11.0) [facility] [place] RBC 3.27 10*6/uL (4.60-6.10) L [facility] HGB 9.8 g/dL (13.5-18.0) L [facility] HCT 30.0 % (41.0-53.0) L [facility] MCV 91.6 fL (80.0-95.0) [facility] MCH 30.0 pg (27.0-32.0) [facility] MCHC 32.7 g/dL (32.0-36.0) [facility] RDW 15.9 % (10.5-14.5) H [facility] PLT 127 10*3/uL (150-450) L [facility] MPV 8.8 fL (7.1-10.7) [facility] ID Date Data Source [id number] 04/22/2021 04:20:20 AM EDT [facility] Name Value Range Interpretation Code Description Data Romi rce(s) Supporting Document(s) PT 16.2 s (9.2-11.9) H [facility] INR 1.58 [facility] SUGGESTED THERAPEUTIC RANGES USING INR F ORSTABILIZED ANTICOAGULATED PATIENTS:STANDARD DOSE THERAPY INR 2.0-3.0 DVT, PE, PREVENT DVT OR EMBOLISMHIGH DOSE THERAPY INR 2.5-3.5 PREVENT EMBOLISM FROM MECHANICAL HEART VALVE ID Date Data Source [id number] 04/21/2021 04:14:38 AM EDT [facility] Name Value Range Interpretation Code Description Data Romi rce(s) Supporting Document(s) PT 29.8 s (9.2-11.9) H [facility] INR 3.02 [facility] SUGGESTED THERAPEUTIC RANGES USING INR F ORSTABILIZED ANTICOAGULATED PATIENTS:STANDARD DOSE THERAPY INR 2.0-3.0 DVT, PE, PREVENT DVT OR EMBOLISMHIGH DOSE THERAPY INR 2.5-3.5 PREVENT EMBOLISM FROM MECHANICAL HEART VALVE ID Date Data Source [id number] 04/21/2021 04:36:06 AM EDT [facility] Name Value Range Interpretation Code Description Data Romi rce(s) Supporting Document(s) SODIUM 138 mmol/L (136-145) [facility] POTASSIUM 4.2 mmol/L (3.6-5.2) [facility] CHLORIDE 105 mmol/L (100-108) [facility] CO2 26 mmol/L (22-31) [facility] ANION GAP 7 mmol/L (7-16) [facility] UREA NITROGEN 12 mg/dL (7-24) [facility] CREATININE 0.85 mg/dL (0.80-1.30) [facility] BUN/CREAT RATIO 14.1 RATIO (10.0-20.0) [facility] GLUCOSE 98 mg/dL (70-99) [facility] CALCIUM 8.0 mg/dL (8.4-10.2) L [facility] GFR >60 ml/min/1.73m2 (>59) [facility] GFR ( AMER) >60 ml/min/1.73m2 (>59) [facility] GFR INTERPRETATION [facility] --NORMAL KIDNEY FUNCTION OR MILD DISEASE - GFR >OR= 60CHRONIC KIDNEY DISEASE - GFR 15 - 59RENAL FAILURE - GFR <15 Est. GFR calculation based on the MDRDstudy equation, which assumes a steadystate for creatinine. Est. GFR should notbe used for medication dosing. ID Date Data Source [id number] 04/21/2021 04:08:43 AM EDT [facility] Name Value Range Interpretation Code Description Data Romi rce(s) Supporting Document(s) WBC 8.5 10*3/uL (4.1-11.0) [facility] [place] RBC 3.35 10*6/uL (4.60-6.10) L [facility] HGB 10.2 g/dL (13.5-18.0) L [facility] HCT 30.8 % (41.0-53.0) L [facility] MCV 92.1 fL (80.0-95.0) [facility] MCH 30.4 pg (27.0-32.0) [facility] MCHC 33.1 g/dL (32.0-36.0) [facility] RDW 16.5 % (10.5-14.5) H [facility] PLT 126 10*3/uL (150-450) L [facility] MPV 9.1 fL (7.1-10.7) [facility] ID Date Data Source [id number] 04/20/2021 12:04:24 PM EDT [address] [address] Name: ADRIAN SUMNERB: 1970Sex: MOrdering Provider: RON Renteria Prov: RON Ernst Provider: Procedure Performed: / XR CHEST PORTABLEExam Date: 04/20/2021 11:57MRN: [id number] Number: [id number] Class: InpatientAccount #: [id number] for Exam: ptx, CT to H2O sealTechnique: [...] AZALEA BAL On 04/20/2021 12:04 PMWorkstation ID: [id number] - [id number] Name Value Range Interpretation Code Description Data Romi rce(s) Supporting Document(s) ID Date Data Source [id number] 04/20/2021 12:37:07 PM EDT [facility] Name Value Range Interpretation Code Description Data Romi rce(s) Supporting Document(s) POTASSIUM 4.4 mmol/L (3.6-5.2) [facility] ID Date Data Source [id number] 04/20/2021 07:54:28 AM EDT [facility] Name Value Range Interpretation Code Description Data Romi rce(s) Supporting Document(s) POC NOVA GLU 115 mg/dL (70-99) H [facility] [place] [facility] CLINICAL STAFF ID Date Data Source [id number] 04/20/2021 09:26:51 AM EDT [facility] Name Value Range Interpretation Code Description Data Romi rce(s) Supporting Document(s) TOTAL PROTEIN 6.6 g/dL (6.4-8.2) [facility] ALBUMIN 3.0 g/dL (3.5-4.6) L [facility] GLOBULIN 3.6 g/dL (2.7-4.3) [facility] ALB/GLOB RATIO 0.8 RATIO [facility] BILIRUBIN,TOTAL 0.4 mg/dL (0.0-1.0) [facility] PLEASE NOTE:Total bilirubin results may be falselyelevated in patients taking Eltrombopag. BILIRUBIN,CONJUGATED 0.2 mg/dL (0.0-0.3) [facility] BILIRUBIN,UNCONJ. 0.2 mg/dL (0.0-0.7) [facility] ALKALINE PHOSPHATASE 77 U/L (45-117) [facility] AST (SGOT) 23 U/L (11-39) [facility] ALT (SGPT) 16 U/L (12-78) [facility] ID Date Data Source [id number] 04/20/2021 08:35:21 AM EDT [facility] Name Value Range Interpretation Code Description Data Romi rce(s) Supporting Document(s) POTASSIUM 3.9 mmol/L (3.6-5.2) [facility] ID Date Data Source [id number] 04/20/2021 03:54:21 AM EDT [facility] Name Value Range Interpretation Code Description Data Romi rce(s) Supporting Document(s) MAGNESIUM 2.4 mg/dL (1.7-2.4) [facility] ID Date Data Source [id number] 04/20/2021 03:54:21 AM EDT [facility] Name Value Range Interpretation Code Description Data Romi rce(s) Supporting Document(s) SODIUM 140 mmol/L (136-145) [facility] POTASSIUM 3.9 mmol/L (3.6-5.2) [facility] CHLORIDE 109 mmol/L (100-108) H [facility] CO2 28 mmol/L (22-31) [facility] ANION GAP 3 mmol/L (7-16) L [facility] UREA NITROGEN 19 mg/dL (7-24) [facility] CREATININE 0.84 mg/dL (0.80-1.30) [facility] BUN/CREAT RATIO 22.6 RATIO (10.0-20.0) H [facility] GLUCOSE 97 mg/dL (70-99) [facility] CALCIUM 7.9 mg/dL (8.4-10.2) L [facility] GFR >60 ml/min/1.73m2 (>59) [facility] GFR ( AMER) >60 ml/min/1.73m2 (>59) [facility] GFR INTERPRETATION [facility] --NORMAL KIDNEY FUNCTION OR MILD DISEASE - GFR >OR= 60CHRONIC KIDNEY DISEASE - GFR 15 - 59RENAL FAILURE - GFR <15 Est. GFR calculation based on the MDRDstudy equation, which assumes a steadystate for creatinine. Est. GFR should notbe used for medication dosing. ID Date Data Source [id number] 04/20/2021 03:35:37 AM EDT [facility] Name Value Range Interpretation Code Description Data Romi rce(s) Supporting Document(s) CALCIUM IONIZED 5.00 mg/dL (4.64-5.28) [facility] IONIZED CALCIUM NORMALIZED TO PH 7.40 AN D 37 DEGREES C. ID Date Data Source [id number] 04/20/2021 03:28:56 AM EDT [facility] Name Value Range Interpretation Code Description Data Romi rce(s) Supporting Document(s) PT 27.7 s (9.2-11.9) H [facility] INR 2.80 [facility] SUGGESTED THERAPEUTIC RANGES USING INR F ORSTABILIZED ANTICOAGULATED PATIENTS:STANDARD DOSE THERAPY INR 2.0-3.0 DVT, PE, PREVENT DVT OR EMBOLISMHIGH DOSE THERAPY INR 2.5-3.5 PREVENT EMBOLISM FROM MECHANICAL HEART VALVE ID Date Data Source [id number] 04/20/2021 02:59:42 AM EDT [facility] Name Value Range Interpretation Code Description Data Romi rce(s) Supporting Document(s) WBC 8.5 10*3/uL (4.1-11.0) [facility] [place] [facility] [place] RBC 3.23 10*6/uL (4.60-6.10) L [facility] HGB 9.8 g/dL (13.5-18.0) L [facility] HCT 29.5 % (41.0-53.0) L [facility] MCV 91.2 fL (80.0-95.0) [facility] MCH 30.4 pg (27.0-32.0) [facility] MCHC 33.4 g/dL (32.0-36.0) [facility] RDW 16.1 % (10.5-14.5) H [facility] PLT 115 10*3/uL (150-450) L [facility] MPV 9.0 fL (7.1-10.7) [facility] ID Date Data Source [id number] 04/19/2021 05:57:39 PM EDT [facility] Name Value Range Interpretation Code Description Data Romi rce(s) Supporting Document(s) POC NOVA GLU 105 mg/dL (70-99) H [facility] [place] [facility] [place] [facility] CLINICAL STAFF ID Date Data Source [id number] 04/19/2021 02:40:19 PM EDT [address] [address]Rz[place]us Name: ADRIAN Lee TAISHAB: 1970Sex: MOrdering Provider: RON LINKAuthorimarta Prov: RON Ernst Provider: Procedure Performed: / XR CHEST PORTABLEExam Date: 04/19/2021 13:24MRN: [id number] Number: [id number] Class: InpatientAccount #: [id number] for Exam: PTX, CT clampedTechnique: AP portable view obtained.Comparison: 04/17/2021Findings: Right-sided chest tubes remain in place. [place] catheter and nasogastric tube endotracheal tube been removed. There is now a large right-sided pneumothorax. Left lung is clear.IMPRESSION: New large right-sided pneumothorax status post chest tube clamping.Findings communicated utilizing critical results protocol.Report electronically signed by: GARCIA BLACKMAN On 04/19/2021 2:40 PMWorkstation ID: [id number] - [id number] Name Value Range Interpretation Code Description Data Romi rce(s) Supporting Document(s) ID Date Data Source [id number] 04/19/2021 01:02:28 PM EDT [facility] Name Value Range Interpretation Code Description Data Romi rce(s) Supporting Document(s) POC NOVA GLU 104 mg/dL (70-99) H [facility] [place] [facility] CLINICAL STAFF ID Date Data Source [id number] 04/19/2021 08:26:25 AM EDT [facility] Name Value Range Interpretation Code Description Data Romi rce(s) Supporting Document(s) POC NOVA GLU 109 mg/dL (70-99) H [facility] [place] [facility] CLINICAL STAFF ID Date Data Source [id number] 04/19/2021 03:22:11 AM EDT [facility] Name Value Range Interpretation Code Description Data Romi rce(s) Supporting Document(s) CALCIUM IONIZED 4.92 mg/dL (4.64-5.28) [facility] IONIZED CALCIUM NORMALIZED TO PH 7.40 AN D 37 DEGREES C. ID Date Data Source [id number] 04/19/2021 03:18:21 AM EDT [facility] Name Value Range Interpretation Code Description Data Roim rce(s) Supporting Document(s) MAGNESIUM 2.1 mg/dL (1.7-2.4) [facility] ID Date Data Source [id number] 04/19/2021 03:18:21 AM EDT [facility] Name Value Range Interpretation Code Description Data Romi rce(s) Supporting Document(s) SODIUM 134 mmol/L (136-145) L [facility] POTASSIUM 4.4 mmol/L (3.6-5.2) [facility] CHLORIDE 102 mmol/L (100-108) [facility] CO2 26 mmol/L (22-31) [facility] ANION GAP 6 mmol/L (7-16) L [facility] UREA NITROGEN 16 mg/dL (7-24) [facility] CREATININE 0.83 mg/dL (0.80-1.30) [facility] BUN/CREAT RATIO 19.3 RATIO (10.0-20.0) [facility] GLUCOSE 117 mg/dL (70-99) [facility] CALCIUM 8.3 mg/dL (8.4-10.2) [facility] GFR >60 ml/min/1.73m2 (>59) [facility] GFR ( AMER) >60 ml/min/1.73m2 (>59) [facility] GFR INTERPRETATION [facility] --NORMAL KIDNEY FUNCTION OR MILD DISEASE - GFR >OR= 60CHRONIC KIDNEY DISEASE - GFR 15 - 59RENAL FAILURE - GFR <15 Est. GFR calculation based on the MDRDstudy equation, which assumes a steadystate for creatinine. Est. GFR should notbe used for medication dosing. ID Date Data Source [id number] 04/19/2021 03:07:30 AM EDT [facility] Name Value Range Interpretation Code Description Data Romi rce(s) Supporting Document(s) PT 13.2 s (9.2-11.9) [facility] INR 1.27 [facility] SUGGESTED THERAPEUTIC RANGES USING INR F ORSTABILIZED ANTICOAGULATED PATIENTS:STANDARD DOSE THERAPY INR 2.0-3.0 DVT, PE, PREVENT DVT OR EMBOLISMHIGH DOSE THERAPY INR 2.5-3.5 PREVENT EMBOLISM FROM MECHANICAL HEART VALVE ID Date Data Source [id number] 04/19/2021 02:58:50 AM EDT [facility] Name Value Range Interpretation Code Description Data Romi rce(s) Supporting Document(s) WBC 9.3 10*3/uL (4.1-11.0) [facility] RBC 3.49 10*6/uL (4.60-6.10) [facility] HGB 10.6 g/dL (13.5-18.0) [facility] HCT 31.8 % (41.0-53.0) [facility] MCV 91.1 fL (80.0-95.0) [facility] MCH 30.3 pg (27.0-32.0) [facility] MCHC 33.3 g/dL (32.0-36.0) [facility] RDW 16.0 % (10.5-14.5) [facility] PLT 118 10*3/uL (150-450) [facility] MPV 9.0 fL (7.1-10.7) [facility] ID Date Data Source [id number] 04/18/2021 06:41:39 PM EDT [facility] Name Value Range Interpretation Code Description Data Romi rce(s) Supporting Document(s) POC NOVA GLU 123 mg/dL (70-99) [facility] CLINICAL STAFF ID Date Data Source [id number] 04/18/2021 12:41:59 PM EDT [facility] Name Value Range Interpretation Code Description Data Romi rce(s) Supporting Document(s) POC NOVA GLU 121 mg/dL (70-99) [facility] CLINICAL STAFF ID Date Data Source [id number] 04/18/2021 09:52:51 AM EDT [facility] Name Value Range Interpretation Code Description Data Romi rce(s) Supporting Document(s) POC NOVA GLU 129 mg/dL (70-99) [facility] CLINICAL STAFF ID Date Data Source [id number] 04/18/2021 11:32:10 AM EDT [facility] Name Value Range Interpretation Code Description Data Romi rce(s) Supporting Document(s) MAGNESIUM 2.5 mg/dL (1.7-2.4) [facility] ID Date Data Source [id number] 04/18/2021 11:32:10 AM EDT [facility] Name Value Range Interpretation Code Description Data Romi rce(s) Supporting Document(s) POTASSIUM 4.8 mmol/L (3.6-5.2) [facility] ID Date Data Source [id number] 04/18/2021 06:12:19 AM EDT [facility] Name Value Range Interpretation Code Description Data Romi rce(s) Supporting Document(s) POC NOVA GLU 152 mg/dL (70-99) [facility] CLINICAL STAFF ID Date Data Source [id number] 04/18/2021 03:08:33 AM EDT [facility] Name Value Range Interpretation Code Description Data Romi rce(s) Supporting Document(s) POC NOVA GLU 139 mg/dL (70-99) [facility] CLINICAL STAFF ID Date Data Source [id number] 04/18/2021 04:50:13 AM EDT [facility] Name Value Range Interpretation Code Description Data Romi rce(s) Supporting Document(s) CALCIUM IONIZED 4.84 mg/dL (4.64-5.28) [facility] IONIZED CALCIUM NORMALIZED TO PH 7.40 AN D 37 DEGREES C. ID Date Data Source [id number] 04/18/2021 04:44:33 AM EDT [facility] Name Value Range Interpretation Code Description Data Romi rce(s) Supporting Document(s) SODIUM 137 mmol/L (136-145) [facility] POTASSIUM 4.1 mmol/L (3.6-5.2) [facility] CHLORIDE 105 mmol/L (100-108) [facility] CO2 24 mmol/L (22-31) [facility] ANION GAP 8 mmol/L (7-16) [facility] UREA NITROGEN 14 mg/dL (7-24) [facility] CREATININE 0.84 mg/dL (0.80-1.30) [facility] BUN/CREAT RATIO 16.7 RATIO (10.0-20.0) [facility] GLUCOSE 121 mg/dL (70-99) [facility] CALCIUM 7.9 mg/dL (8.4-10.2) [facility] GFR >60 ml/min/1.73m2 (>59) [facility] GFR ( AMER) >60 ml/min/1.73m2 (>59) [facility] GFR INTERPRETATION [facility] --NORMAL KIDNEY FUNCTION OR MILD DISEASE - GFR >OR= 60CHRONIC KIDNEY DISEASE - GFR 15 - 59RENAL FAILURE - GFR <15 Est. GFR calculation based on the MDRDstudy equation, which assumes a steadystate for creatinine. Est. GFR should notbe used for medication dosing. ID Date Data Source [id number] 04/18/2021 04:44:33 AM EDT [facility] Name Value Range Interpretation Code Description Data Romi rce(s) Supporting Document(s) MAGNESIUM 2.0 mg/dL (1.7-2.4) [facility] ID Date Data Source [id number] 04/18/2021 04:13:28 AM EDT [facility] Name Value Range Interpretation Code Description Data Romi rce(s) Supporting Document(s) PT 12.1 s (9.2-11.9) [facility] INR 1.16 [facility] SUGGESTED THERAPEUTIC RANGES USING INR F ORSTABILIZED ANTICOAGULATED PATIENTS:STANDARD DOSE THERAPY INR 2.0-3.0 DVT, PE, PREVENT DVT OR EMBOLISMHIGH DOSE THERAPY INR 2.5-3.5 PREVENT EMBOLISM FROM MECHANICAL HEART VALVE ID Date Data Source [id number] 04/18/2021 04:10:04 AM EDT [facility] Name Value Range Interpretation Code Description Data Romi rce(s) Supporting Document(s) WBC 8.1 10*3/uL (4.1-11.0) [facility] RBC 3.49 10*6/uL (4.60-6.10) L [facility] HGB 10.5 g/dL (13.5-18.0) [facility] HCT 32.0 % (41.0-53.0) [facility] MCV 91.5 fL (80.0-95.0) [facility] MCH 30.1 pg (27.0-32.0) [facility] MCHC 32.9 g/dL (32.0-36.0) [facility] RDW 15.9 % (10.5-14.5) [facility] PLT 130 10*3/uL (150-450) [facility] MPV 8.6 fL (7.1-10.7) [facility] ID Date Data Source [id number] 04/18/2021 12:30:41 AM EDT [facility] Name Value Range Interpretation Code Description Data Romi rce(s) Supporting Document(s) POC NOVA GLU 130 mg/dL (70-99) [facility] CLINICAL STAFF ID Date Data Source [id number] 04/17/2021 10:03:38 PM EDT [facility] Name Value Range Interpretation Code Description Data Romi rce(s) Supporting Document(s) POC NOVA GLU 122 mg/dL (70-99) [facility] CLINICAL STAFF ID Date Data Source [id number] 04/17/2021 10:32:33 PM EDT [facility] Name Value Range Interpretation Code Description Data Romi rce(s) Supporting Document(s) POTASSIUM 3.9 mmol/L (3.6-5.2) [facility] ID Date Data Source [id number] 04/17/2021 10:20:50 PM EDT [facility] Name Value Range Interpretation Code Description Data Romi rce(s) Supporting Document(s) WBC 7.3 10*3/uL (4.1-11.0) [facility] RBC 3.51 10*6/uL (4.60-6.10) L [facility] HGB 10.5 g/dL (13.5-18.0) L [facility] HCT 32.4 % (41.0-53.0) [facility] MCV 92.3 fL (80.0-95.0) [facility] MCH 29.9 pg (27.0-32.0) [facility] MCHC 32.4 g/dL (32.0-36.0) [facility] RDW 16.0 % (10.5-14.5) [facility] PLT 134 10*3/uL (150-450) [facility] MPV 8.7 fL (7.1-10.7) [facility] ID Date Data Source [id number] 04/17/2021 07:58:36 PM EDT [facility] Name Value Range Interpretation Code Description Data Romi rce(s) Supporting Document(s) POC NOVA GLU 133 mg/dL (70-99) [facility] CLINICAL STAFF ID Date Data Source [id number] 04/17/2021 05:59:37 PM EDT [facility] Name Value Range Interpretation Code Description Data Romi rce(s) Supporting Document(s) POC NOVA GLU 136 mg/dL (70-99) [facility] CLINICAL STAFF ID Date Data Source [id number] 04/17/2021 05:28:31 PM EDT [facility] Name Value Range Interpretation Code Description Data Romi rce(s) Supporting Document(s) POC SOURCE [facility] PUNCTURE SITE [facility] O2 THERAPY [facility] POC FIO2 40 [facility] KB TEST [facility] MODE [facility] PEEP/MAP 8 CM H2O [facility] PRESSURE SUPPORT 8 CM H2O [facility] SP RATE 17 BMP [facility] POC PH 7.37 pH (7.35-7.45) [facility] POC PCO2 40.3 MMHG (32.0-48.0) [facility] POC PO2 60 MMHG (83-108) L [facility] POC SAT O2 90 % (95-99) L [facility] POC BASE DEFICIT 2 MMOL/L (0-2) [facility] POC HCO3 23.1 MMOL/L (21.0-29.0) [facility] POC TOTAL CO2 24 MMOL/L (23.0-32.0) [facility] CLINICAL STAFF ID Date Data Source [id number] 04/17/2021 04:02:12 PM EDT [facility] Name Value Range Interpretation Code Description Data Romi rce(s) Supporting Document(s) POC NOVA GLU 131 mg/dL (70-99) [facility] CLINICAL STAFF ID Date Data Source [id number] 04/17/2021 05:41:01 PM EDT [facility] Name Value Range Interpretation Code Description Data Romi rce(s) Supporting Document(s) POTASSIUM 4.6 mmol/L (3.6-5.2) [facility] ID Date Data Source [id number] 04/17/2021 02:30:31 PM EDT [facility] Name Value Range Interpretation Code Description Data Romi rce(s) Supporting Document(s) POC NOVA GLU 131 mg/dL (70-99) [facility] CLINICAL STAFF ID Date Data Source [id number] 04/17/2021 01:32:24 PM EDT [facility] Name Value Range Interpretation Code Description Data Romi rce(s) Supporting Document(s) POC NOVA GLU 112 mg/dL (70-99) [facility] PERFOR[facility] BY [facility] CLINICAL STAFF ID Date Data Source [id number] 04/17/2021 12:32:32 PM EDT [facility] Name Value Range Interpretation Code Description Data Romi rce(s) Supporting Document(s) POC NOVA GLU 115 mg/dL (70-99) [facility] [place] [facility] CLINICAL STAFF ID Date Data Source [id number] 04/17/2021 12:03:59 PM EDT [address] [address]Jaejxoa Name: ADRIAN SUMNERB: 1970Sex: MOrdering Provider: RON Renteria Prov: RON LINKRefjosé antonio Provider: Procedure Performed: / XR CHEST PORTABLEExam Date: 04/17/2021 11:45MRN: [id number] Number: [id number] Class: InpatientAccount #: [id number] for Exam: Evaluate for [place] Lissett catheter placement and/or endotracheal tubeTechnique: AP portable view obtained.Comparison: NoneFindings: The tip of the ET tube is 4.3 cm above the francine. The NG tube is coiled in the esophagus with its tip in the proximal esophagus. The tip of the [place]-Liss[place] catheter is in the proximal right pulmonary artery. Right-sided chest tubes are present. There is probable mild interstitial pulmonary edema. The lungs are otherwise clear. No pleural effusion or pneumothorax is seen. The cardiomediastinal silhouette is unremarkable.IMPRESSION: 1. NG tube is coiled in the esophagus. Repositioning is recommended.2. Appropriate positions of ET tube and [place]-Lissett catheter.3. Probable mild interstitial pulmonary edema.This finding was communicated via the departmental critical results reporting protocol.Report electronically signed by: MERCEDES PEÑA On 04/17/2021 12:03 PMWorkstation ID: [id number] Name Value Range Interpretation Code Description Data Romi rce(s) Supporting Document(s) ID Date Data Source [id number] 04/17/2021 12:03:01 PM EDT [facility] Name Value Range Interpretation Code Description Data Romi rce(s) Supporting Document(s) POC SOURCE [facility] CP BYPASS [facility] POC MIX BARRY PO2 46 mm[Hg] (35-45) H [facility] POC MIX BARRY SO2 77 % (60-80) [facility] P[facility] HCT 31 % (41.0-53.0) [facility] ID Date Data Source [id number] 04/17/2021 12:03:01 PM EDT [facility] Name Value Range Interpretation Code Description Data Romi rce(s) Supporting Document(s) POC SOURCE [facility] PUNCTURE SITE [facility] O2 THERAPY [facility] POC FIO2 80 [facility] KB TEST [facility] MODE [facility] TIDAL VOLUME 550 mL [facility] RATE 18 BPM [facility] PEEP/MAP 10 CM H2O [facility] PRESSURE SUPPORT 12 CM H2O [facility] SP RATE 0 BMP [facility] POC PH 7.33 pH (7.35-7.45) L [facility] POC PCO2 51.0 MMHG (32.0-48.0) H [facility] POC PO2 228 MMHG (83-108) H [facility] POC SAT O2 100 % (95-99) H [facility] POC BASE EXCESS 0 MMOL/L (0-3) [facility] POC HCO3 26.8 MMOL/L (21.0-29.0) [facility] POC TOTAL CO2 28 MMOL/L (23.0-32.0) [facility] CLINICAL STAFF ID Date Data Source [id number] 04/17/2021 11:30:10 AM EDT [facility] Name Value Range Interpretation Code Description Data Romi rce(s) Supporting Document(s) EKG [facility] FMSSIk1yBfPTOfYhz9PzIsTrRUBjPG7wcel5O8V1tPAiE8UtsDGxz9gcV7ZjG3GvLNYpZZHSGE3DyWBz jb2 [file] kVASM1cA7F1vH4EEq2n/4X0lIFMdJ9Y24aQ+AOsFajycIQt89TLyEm6x4uv+J Carlos/xVDGM357A7U3/J [file] oFZyZz+UgMb9tiLdItft2Hqmegn9P5mnn0etPV/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 [file] AwMDAwMDEyOTcgMDAwMDAgbiAKMDAwMDAwMTQwNiAw ZAHjTAHfHZclRCRsLUB0WRMcZIMnMJWmPW6kZnKeFNKfNBY6QWuhFPDzATYwzqPJEMXzHTTaMRgsYNSb SDPcUKDrNSfbPCRkITUuKLG6XMKvVWUzXM8xEmMyGUWkORMtTPEvYgI2LqUdKzJEwSBxkYsouje8MWtr Z7b7LCJhLRshSV1xfbDwABKiZznoBw3lxZE0GAWeWbkSFg2Je7OvzmW0veMbQcLiNSh3WzdaTVVORr== ID Date Data Source [id number] 04/17/2021 11:14:48 AM EDT [facility] Name Value Range Interpretation Code Description Data Romi rce(s) Supporting Document(s) &PDF [facility] YIQYXq5mFeCJMjEc51/YEGtbBPSrj6FqCJraYUi6MPjcHRYsL7DpsHrcOHCUZiEbB2ZYQBJhZJSoAXeq pYy [file] ICAgICAgICAgICAgICAgICAgICAgICAgICAgICAgICAgICAgICAgICAgICAgICAgICAgICAgICAgICAg ICAgICAgICAgICAgDQogICAgICAgICAgICAgICAgIC AgICAgICAgICAgICAgICAgICAgICAgICAgICAgICAgICAgICAgICAgICAgICAgICAgICAgICAgICAgIC AgICAgICAgICAgICAgICAgICAgICAgDQogICAgICAgICAgICAgICAgICAgICAgICAgICAgICAgICAgIC AgICAgICAgICAgICAgICAgICAgICAgICAgICAgICAg ICAgICAgICAgICAgICAgICAgICAgICAgICAgICAgICAgDQogICAgICAgICAgICAgICAgICAgICAgICAg ICAgICAgICAgICAgICAgICAgICAgICAgICAgICAgICAgICAgICAgICAgICAgICAgICAgICAgICAgICAg ICAgICAgICAgICAgICAgDQogICAgICAgICAgICAgIC AgICAgICAgICAgICAgICAgICAgICAgICAgICAgICAgICAgICAgICAgICAgICAgICAgICAgICAgICAgIC AgICAgICAgICAgICAgICAgICAgICAgICAgDQogICAgICAgICAgICAgICAgICAgICAgICAgICAgICAgIC AgICAgICAgICAgICAgICAgICAgICAgICAgICAgICAg ICAgICAgICAgICAgICAgICAgICAgICAgICAgICAgICAgICAgDQogICAgICAgICAgICAgICAgICAgICAg ICAgICAgICAgICAgICAgICAgICAgICAgICAgICAgICAgICAgICAgICAgICAgICAgICAgICAgICAgICAg ICAgICAgICAgICAgICAgICAgDQogICAgICAgICAgIC AgICAgICAgICAgICAgICAgICAgICAgICAgICAgICAgICAgICAgICAgICAgICAgICAgICAgICAgICAgIC AgICAgICAgICAgICAgICAgICAgICAgICAgICAgDQogICAgICAgICAgICAgICAgICAgICAgICAgICAgIC AgICAgICAgICAgICAgICAgICAgICAgICAgICAgICAg ICAgICAgICAgICAgICAgICAgICAgICAgICAgICAgICAgICAgICAgDQogICAgICAgICAgICAgICAgICAg ICAgICAgICAgICAgICAgICAgICAgICAgICAgICAgICAgICAgICAgICAgICAgICAgICAgICAgICAgICAg TEGxOIYrMYUjRRObWRNfWYXvVFQbCKw5Q0uvLRJjYA NaBG6dAVo4Pn8+PXhDKlTmJWA7woPegP2VHQ8up6ToFUqgAUObb8BxBGi9IL4IPIJgTJvgGC3BDWkurw 5GRPRqDZCwiXNRs0syZuRiGHW0JROzUkwuUH7SZXKeG8mmwhWiPNFyBEQQJJaaKSTMNKtiJJAYNP4LXl WtA4KnlP37FVWGHd5+RIpjlrQtMrqXSbUxZQAgy0Td IRo5WU4RXULzFXlwIV0QIYRgtN8qQUxgIT3EQpLhUSJdCWJNGcKwG16rvRIaLMi1I8FjOkGsMFMsFlwm ZXMgPDwvTmFtZXMgWyBdDQogID4+ID4+QKqbLA5XLZipvfQiCVDpWs0LWKZwVUE4RCEuxUMxQzLdCFSL NRkmSX9WsXNoZNB9pS4tILjjDMZcTSCsS4oLBsLftZ gsBJ47mYstlkIjjWFoVEa+Cn6EZL2hn7KwVOd6caHgYYgcTDY3MZjzFNLoYDDqAXByTNB4TQP0XOLJEr IgGVYfZTVxMXvrDNFkXKAvhf8ZKFLzECFxTTO8HTMzWIJpYVVaFOrkKGPlMXKuQuG0YFAlDQLsBV9PEh UvFKTeOUCeMOspPFGsMLCglf5UREStPBBxSwZwAJHx KNFuRHMqJRtnUDGhFPYxPcXqSCKzLFNcVC1JVgKlRXMfBUMfEXwsFRZvJFJzuo2EMAZkQCJyJtC2CQVx YMIbCFTnCGpmLZCvXYB8JQR7CROaJXRgKC9CExUmRPIjMTcpUbFlZRXzICGtvw1FXSTxEDNcRQRoMHZr FXYaUVReDNoeIRNxWPA9GzP0JBQaHZJlYF0SNsHdAS JzRUd0JZMfRYBkIMHydr7LRWXpRCYgPXT0XOAjTXZjWJKdBZryLZAvMPS8VAQcMVWbNGFfXS5ICbPfFE MjSXd9SPrlGZKcIUPaok6DQRUoXTBqMIhmUlMbQMFeFXBzMVuzCQMqQALjPPK0JRJtLBIuEW1NRpPdAN AiNTWpRNVrGAAsTHYtnz7AYXOaSUFnKeG9ByBhCTPs DRAlWKlwPBVgLXRtXBHeDDFiDPGtAP1AGuDuEVMmVvE5ZzTiQODgHVOipx8LZLVxLPEsTvJcWBQcHHDq GMSmGIr8yhSnfHLfNRi0YC2EU4UcqrAdDlIHCz1Xe933ISWfOBNyNs9IP7ldGb3lUYEePZZYJc3NJLq8 VcOuOVk8TCS5WHQ7MNSfCHs6IFF9VwFjR3N2WCP2Mo I+GBp7FRUsHcN7AIA7MzEvBHY7ORraGWlxABW2Dsq1WvRsYj1vCZBJZx7+DQpzdGFydHhyZWYNCjIyNj VhSLvrHZTJSq1N ID Date Data Source [id number] 04/17/2021 11:20:26 AM EDT [facility] Name Value Range Interpretation Code Description Data Romi rce(s) Supporting Document(s) POC NOVA GLU 73 mg/dL (70-99) [facility] CLINICAL STAFF ID Date Data Source [id number] 04/17/2021 12:39:18 PM EDT [facility] Name Value Range Interpretation Code Description Data Romi rce(s) Supporting Document(s) MAGNESIUM 3.8 mg/dL (1.7-2.4) H [facility] ID Date Data Source [id number] 04/17/2021 12:39:18 PM EDT [facility] Name Value Range Interpretation Code Description Data Romi rce(s) Supporting Document(s) SODIUM 143 mmol/L (136-145) [facility] POTASSIUM 4.4 mmol/L (3.6-5.2) [facility] CHLORIDE 111 mmol/L (100-108) H [facility] CO2 28 mmol/L (22-31) [facility] ANION GAP 4 mmol/L (7-16) L [facility] UREA NITROGEN 16 mg/dL (7-24) [facility] CREATININE 1.20 mg/dL (0.80-1.30) [facility] BUN/CREAT RATIO 13.3 RATIO (10.0-20.0) [facility] GLUCOSE 66 mg/dL (70-99) L [facility] CALCIUM 9.2 mg/dL (8.4-10.2) [facility] GFR >60 ml/min/1.73m2 (>59) [facility] GFR ( AMER) >60 ml/min/1.73m2 (>59) [facility] GFR INTERPRETATION [facility] --NORMAL KIDNEY FUNCTION OR MILD DISEASE - GFR >OR= 60CHRONIC KIDNEY DISEASE - GFR 15 - 59RENAL FAILURE - GFR <15 Est. GFR calculation based on the MDRDstudy equation, which assumes a steadystate for creatinine. Est. GFR should notbe used for medication dosing. ID Date Data Source [id number] 04/17/2021 12:27:17 PM EDT [facility] Name Value Range Interpretation Code Description Data Romi rce(s) Supporting Document(s) CALCIUM IONIZED 5.48 mg/dL (4.64-5.28) H [facility] IONIZED CALCIUM NORMALIZED TO PH 7.40 AN D 37 DEGREES C. ID Date Data Source [id number] 04/17/2021 12:17:31 PM EDT [facility] Name Value Range Interpretation Code Description Data Romi rce(s) Supporting Document(s) WBC 6.1 10*3/uL (4.1-11.0) [facility] RBC 3.03 10*6/uL (4.60-6.10) L [facility] HGB 9.1 g/dL (13.5-18.0) L [facility] HCT 27.6 % (41.0-53.0) L [facility] MCV 91.0 fL (80.0-95.0) [facility] MCH 29.9 pg (27.0-32.0) [facility] MCHC 32.9 g/dL (32.0-36.0) [facility] RDW 15.6 % (10.5-14.5) H [facility] PLT 122 10*3/uL (150-450) L [facility] MPV 8.4 fL (7.1-10.7) [facility] ID Date Data Source [id number] 04/17/2021 10:42:31 AM EDT [facility] Name Value Range Interpretation Code Description Data Romi rce(s) Supporting Document(s) POC SOURCE [facility] CP BYPASS [facility] POC PH 7.19 pH (7.35-7.45) L [facility] POC PCO2 64.2 MMHG (32.0-48.0) H [facility] POC PO2 99 MMHG (83-108) [facility] POC SAT O2 96 % (95-99) [facility] POC BASE DEFICIT 4 MMOL/L (0-2) H [facility] POC HCO3 24.4 MMOL/L (21.0-29.0) [facility] POC TOTAL CO2 26 MMOL/L (23.0-32.0) [facility] CLINICAL STAFF POC HCT 29 % (41.0-53.0) L [facility] POC SODIUM 139 MMOL/L (136-145) [facility] POC POTASSIUM 4.1 MMOL/L (3.6-5.2) [facility] POC IONIZED CALCIUM 6.3 MG/DL (4.6-5.3) [facility] POC GLU 85 MG/DL (70-99) [facility] PER[facility] ID Date Data Source [id number] 04/17/2021 10:42:26 AM EDT [facility] Name Value Range Interpretation Code Description Data Romi rce(s) Supporting Document(s) POC ACT 109 s (80-140) [facility] CLINICAL STAFF ID Date Data Source [id number] 04/17/2021 12:24:25 PM EDT [facility] Name Value Range Interpretation Code Description Data Romi rce(s) Supporting Document(s) APTT 24.1 s (22.0-34.3) [facility] ID Date Data Source [id number] 04/17/2021 12:24:25 PM EDT [facility] Name Value Range Interpretation Code Description Data Romi rce(s) Supporting Document(s) PT 13.0 s (9.2-11.9) H [facility] INR 1.25 [facility] SUGGESTED THERAPEUTIC RANGES USING INR F ORSTABILIZED ANTICOAGULATED PATIENTS:STANDARD DOSE THERAPY INR 2.0-3.0 DVT, PE, PREVENT DVT OR EMBOLISMHIGH DOSE THERAPY INR 2.5-3.5 PREVENT EMBOLISM FROM MECHANICAL HEART VALVE ID Date Data Source [id number] 04/17/2021 09:54:59 AM [facility]T [facility] INFORMATIONPatient MRN Name Date of Age Gend*PT [id number] Adrian Andrews 1970 50 years M SDAPT Location Admission Date/Time Visit ID Attending Provider --- --- --- --- EPI ID CSN Admitting Provider [id number] ---AirwayPatient location during procedure: ORUrgency: electiveDifficult airway: [...] rce(s) Supporting Document(s) ID Date Data Source [id number] 04/17/2021 09:49:33 AM EDT [facility] Name Value Range Interpretation Code Description Data Romi rce(s) Supporting Document(s) POC SOURCE [facility] CP BYPASS [facility] POC PH 7.29 pH (7.35-7.45) L [facility] POC PCO2 48.7 MMHG (32.0-48.0) H [facility] POC PO2 306 MMHG (83-108) H [facility] POC SAT O2 100 % (95-99) H [facility] POC BASE DEFICIT 3 MMOL/L (0-2) H [facility] POC HCO3 23.2 MMOL/L (21.0-29.0) [facility] POC TOTAL CO2 25 MMOL/L (23.0-32.0) [facility] BY [facility] POC HCT 26 % (41.0-53.0) L [facility] POC SODIUM 134 MMOL/L (136-145) L [facility] POC POTASSIUM 5.0 MMOL/L (3.6-5.2) [facility] POC IONIZED CALCIUM 5.0 MG/DL (4.6-5.3) [facility] POC GLU 164 MG/DL (70-99) H [facility] ID Date Data Source [id number] 04/17/2021 09:49:28 AM EDT [facility] Name Value Range Interpretation Code Description Data Romi rce(s) Supporting Document(s) POC SOURCE [facility] CP BYPASS [facility] POC VENOUS PH 7.25 pH (7.33-7.43) L [facility] POC VENOUS PCO2 51.9 MM HG (38.0-50.0) H [facility] PO2 49 MM HG (30-50) [facility] POC VENOUS SO2 77 % (60-85) [facility] POC VENOUS BASE DEFICIT 4 MMOL/L (0-2) H [facility] P[facility] VENOUS HCO3 23.0 MMOL/L (23.0-27.0) [facility] P[facility] VEN[facility] TOTAL CO2 25 MMOL/L (24-28) [facility] POC HCT 26 % (41.0-53.0) L [facility] POC SODIUM 133 MMOL/L (136-145) L [facility] POC POTASSIUM 5.0 MMOL/L (3.6-5.2) [facility] POC IONIZED CALCIUM 5.1 MG/DL (4.6-5.3) [facility] POC GLU 162 MG/DL (70-99) H [facility] [facility] ID Date Data Source [id number] 04/17/2021 09:49:23 AM EDT [facility] Name Value Range Interpretation Code Description Data Romi rce(s) Supporting Document(s) POC ACT 450 s (80-140) H [facility] PERFORMED BY [facility] CLINICAL STAFF ID Date Data Source [id number] 04/17/2021 09:16:57 AM EDT [facility] Name Value Range Interpretation Code Description Data Romi rce(s) Supporting Document(s) POC SOURCE [facility] CP BYPASS [facility] POC VENOUS PH 7.27 pH (7.33-7.43) L [facility] POC VENOUS PCO2 43.6 MM HG (38.0-50.0) [facility] POC [facility]ENOUS PO2 50 MM HG (30-50) [facility] POC VENOUS SO2 80 % (60-85) [facility] POC VENOUS BASE DEFICIT 7 MMOL/L (0-2) H [facility] POC VENOUS HCO3 19.8 MMOL/L (23.0-27.0) L [facility] POC VENOUS TOTAL CO2 21 MMOL/L (24-28) L [facility] BY [facility] CLINICAL STAFF POC HCT 22 % (41.0-53.0) L [facility] POC SODIUM 134 MMOL/L (136-145) L [facility] POC POTASSIUM 5.4 MMOL/L (3.6-5.2) H [facility] POC IONIZED CALCIUM 4.8 MG/DL (4.6-5.3) [facility] POC GLU 132 MG/DL (70-99) H [facility] PER[facility] LAB [facility] [place] [facility] ID Date Data Source [id number] 04/17/2021 09:23:22 AM EDT [facility] Name Value Range Interpretation Code Description Data Romi rce(s) Supporting Document(s) POC ACT 521 s (80-140) H [facility]FORMED BY [facility] CLINICAL STAFF ID Date Data Source [id number] 04/17/2021 08:50:23 AM EDT [facility] Name Value Range Interpretation Code Description Data Romi rce(s) Supporting Document(s) POC SOURCE [facility] CP BYPASS [facility] POC PH 7.23 pH (7.35-7.45) L [facility] POC PCO2 54.0 MMHG (32.0-48.0) H [facility] POC PO2 354 MMHG (83-108) H [facility] POC SAT O2 100 % (95-99) H [facility] POC BASE DEFICIT 5 MMOL/L (0-2) H [facility] POC HCO3 22.5 MMOL/L (21.0-29.0) [facility] POC TOTAL CO2 24 MMOL/L (23.0-32.0) [facility] [place] [facility] PERFORMED BY [facility] CLINICAL STAFF POC HCT 32 % (41.0-53.0) L [facility] POC SODIUM 139 MMOL/L (136-145) [facility] POC POTASSIUM 4.3 MMOL/L (3.6-5.2) [facility] POC IONIZED CALCIUM 5.7 MG/DL (4.6-5.3) H [facility] POC GLU 114 MG/DL (70-99) H [facility] [place] [facility] ID Date Data Source [id number] 04/17/2021 09:06:52 AM EDT [facility] Name Value Range Interpretation Code Description Data Romi rce(s) Supporting Document(s) POC ACT 555 s (80-140) H [facility]FOR[facility] BY [facility] CLINICAL STAFF ID Date Data Source [id number] 04/21/2021 05:07:45 PM EDT [facility] [place], [place] [address]Tel# Surgical Pathology ReportPatient Name: ADRIAN ANDREWS: 1970Accession #:[id number](s) ReceivedA: Mitral valve leafletsClinical Diagnosis and HistoryRheumatic [...] myxoid change. No calcifications orvegetations are identified. Psychiatric Aide Instructor sections are submitted as A1.smmlmr/skl Reported: 2020Electronically Signed Out By Miller Lloyd MD [facility] [place] [address] [id number] component performed at [facility], [facility], [address] [place] [address], [address].Reported at [facility], [address] [place] [address], [address]. This report may includeimmunohistochemical or in-situ hybridization results. Testing wasdeveloped and the performance characteristics determined by [facility] as required by CLIA '88. The FDA hasdetermined that approval for specific use is not necessary for clinicaluse. The quality of Hematoxylin and Eosin stains and as applicable, forall immunohistochemical and/or special stains, including positive andnegative controls, were reviewed and considered appropriate.ICD codes I05.2CPT codesA: 20104I Name Value Range Interpretation Code Description Data Romi rce(s) Supporting Document(s) ID Date Data Source [id number] 04/17/2021 07:55:57 AM EDT [facility] Name Value Range Interpretation Code Description Data Romi rce(s) Supporting Document(s) POC SOURCE [facility] CP BYPASS [facility] POC PH 7.27 pH (7.35-7.45) L [facility] POC PCO2 44.8 MMHG (32.0-48.0) [facility] POC PO2 442 MMHG (83-108) H [facility] POC SAT O2 100 % (95-99) H [facility] POC BASE DEFICIT 6 MMOL/L (0-2) H [facility] POC HCO3 20.6 MMOL/L (21.0-29.0) L [facility] POC TOTAL CO2 22 MMOL/L (23.0-32.0) L [facility] [place] [facility]FORMED BY [facility] CLINICAL STAFF POC HCT 33 % (41.0-53.0) L [facility] POC SODIUM 139 MMOL/L (136-145) [facility] POC POTASSIUM 4.1 MMOL/L (3.6-5.2) [facility] POC IONIZED CALCIUM 4.9 MG/DL (4.6-5.3) [facility] POC GLU 92 MG/DL (70-99) [facility] [place] [facility] ID Date Data Source [id number] 04/17/2021 07:55:52 AM EDT [facility] Name Value Range Interpretation Code Description Data Romi rce(s) Supporting Document(s) POC ACT 136 s (80-140) [facility]FOR[facility] BY [facility] CLINICAL STAFF ID Date Data Source [id number] 04/17/2021 07:18:08 AM EDT [facility] NT INFORMATIONPatient MRN Name Date of Age Gend*PT [id number] Adrian Andrews 1970 50 years M SDAPT Location Admission Date/Time Visit ID [facility]18 --- Chandler Corrigan MD([id number]) EPI ID CSN Admitting Provider [id number] Chandler Corrigan MD([id number])H&P reviewed. No changes Name Value Range Interpretation Code Description Data Romi rce(s) Supporting Document(s) ID Date Data Source [id number] 04/17/2021 06:32:20 AM EDT [facility] Name Value Range Interpretation Code Description Data Romi rce(s) Supporting Document(s) POC NOVA GLU 94 mg/dL (70-99) [facility] [place] [facility]EN PERFORMED BY [facility] CLINICAL STAFF ID Date Data Source [id number] 04/17/2021 12:29:33 PM EDT [facility] [place] [facility] GARCIA SPEC EXP DATE 04/18/2021TEST ING SITE PERFORMED AT [address] [place] [id number] NUMBER [id number] COMPONENT TYPE LEUKOPOOR RED CELLSUNIT DIVISION 00STATUS OF UNIT REL FROM ALLOCTRANSFUSION STATUS OK TO TRANSFUSECROSSMATCH RESULT COMPATIBLEUNIT NUMBER [id number] COMPONENT TYPE LEUKOPOOR RED CELLSUNIT DIVISION 00STATUS OF UNIT REL FROM ALLOCTRANSFUSION STATUS OK TO TRANSFUSECROSSMATCH RESULT COMPATIBLE Name Value Range Interpretation Code Description Data Romi rce(s) Supporting Document(s) TRANSFUSE RED CELLS [facility] TESTING SITE PERFORMED AT [address] [place] [id number] ID Date Data Source [id number] 04/16/2021 09:44:31 AM EDT [facility] NT INFORMATIONPatient MRN Name Date of Age Gend*PT [id number] Adrian Andrews 1970 50 years M OPPT Location Admission Date/Time Visit ID Attending Provider --- --- --- Chandler Corrigan MD([id number]) EPI ID CSN Admitting Provider [id number] ---Addended by: JIA MCKEON on: 04/16/2021 09:44 AM Modules accepted: Orders Name Value Range Interpretation Code Description Data Romi rce(s) Supporting Document(s) ID Date Data Source [id number] 04/14/2021 11:55:35 AM EDT [facility] NT INFORMATIONPatient MRN Name Date of Age Gend*PT [id number] Adrian Andrews 1970 50 years M OPPT Location Admission Date/Time Visit ID Attending Provider --- --- --- Chandler Corrigan MD([id number]) EPI ID CSN Admitting Provider [id number] ---HISTORY PHYSICALName: Adrian Andrews : 1970 Sex: male Care Provider: [facility] Physician: Dr. CorriganInformant: The patient who is [...] mean transmitral gradient is 7 and peak vvyqwaej37 mmHg corresponding to moderate mitral stenosis. 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 Roland, [place] [facility] SystemERGIES:AllergiesAllergen Reactions Codeine RashMEDICATIONS:Prior to Admission medicationsMedication Sig [...] every 7 days on Wednesday11/21/20 Historical Provider, Loboprenorphine HCl-naloxone HCl (SUBOXONE) 8-[address] [...] tablet (81 mg total) by mouth daily Toby Parish MDibuprofen (ADVIL,MOTRIN) 200 MG tablet Take [...] warm and dry.HEENT: He is normocephalic, atraumatic. Clanton conjunctivae. Anicteric sclerae.Pupils are equal, round, reactive [...] Clear to auscultation. No wheezes, rhonchi or cracking still operator ckles.HEART: Rate rhythm regular. No murmur appreciated on exam. Right carotidbruit.ABDOMEN: Bowel sounds positive times four. Soft, non tender. No reboundtenderness. No hepatosplenomegaly. Negative CVAT.GENITAL/RECTAL: Deferred.MUSCLE/SKELETAL: Strength is 5/5. Clinical Documentation Developer are equal. Limited range of motion ofleft shoulder.NEUROLOGICALLY: Cranial nerves II through XII are grossly intact.VASCULAR: Pulses are symmetrical. Trace edema.Anesthesia complications: DeniesSteroid use: He denies any oral steroid therapy for three weeks or greaterwithin the last 3 months.[facility] Frailty Scale :: 5/10 Mildly Frail (more [...] Cigarettes Smoking cessation information givento patient including [facility] quit line. Nicotine replacement products ifindicated by the attending6. Complex regional pain syndromeBased on above medical co morbidities, length of stay may be prolonged greaterthan previously anticipated.ALLERGIES:Codeine04/14/2021 11:55 Redd Mckeon NP*This document or parts of this document, were dictated using Lesson Prep software. A reasonable attempt at proofreading has beenmade to minimize errors. Please call with any questions or corrections. Name Value Range Interpretation Code Description Data Romi rce(s) Supporting Document(s) ID Date Data Source [id number] 04/14/2021 10:27:00 AM EDT [facility] ULTR ASOUND CAROTID DUPLEXCLINICAL HISTORY: Pretesting. Repair [...] rce(s) Supporting Document(s) ID Date Data Source [id number] 04/14/2021 10:20:00 AM EDT [facility] CT C HEST WO IV CONTRASTCLINICAL HISTORY: [...] which is not fully included in the ccirh-bo-spys, the largest measuring 3 mm.IMPRESSION:1. Mild emphysema. No acute pulmonary abnormality.2. Several mildly prominent mediastinal lymph nodes measuring up to 12 mm in short axis, favored to be reactive. Consider follow-up CT in 3 months.3. At least 3 small calculi in the right kidney, not fully included in the utrts-dr-tscp.Dictated by: MERCEDES PEÑA on 04/14/2021lectronically Signed by: MERCEDES PEÑA on 04/14/2021 01:56 PMTranscribed by: [email or web address] on 04/14/2021 01:56 PMCDS G code: ,CDS Modifier: ,cc: Name Value Range Interpretation Code Description Data Romi rce(s) Supporting Document(s) ID Date Data Source [id number] 04/14/2021 10:19:01 AM EDT [facility] Name Value Range Interpretation Code Description Data Romi rce(s) Supporting Document(s) EKG [facility] WSUOGq7fJoJHIoAuo1PtKxAeZELiWU4ukjf7G9H2mSFaB1SyqFRpm9roZ2OgC8BmOLYpBPJFEM6DoPIl jb2 [file] qBuZLNVkqSZLNVmqydJMlmayNJOlmSzNZGkmSzNZms hOYXGmlzCLwGmu4XTeBen3TBf6A4rr/5rVxJbq0zY+OwfEw6NqZVg8qEVcTKzKd8m86PW8Se3ZMzVbr6 N794I6FbWtXIUJlXSlmxNBadeejWaBWPtdvtIZzpjfC9SXonGalHVIoTNl1eYwvAk53mJ1WaBYu+plWb 8pf7bx6rKxFzkVe+awfmo4f43p63BEWlh7Ywgr6cap v1DCfTlHZfnBBVAH+G0Q5cl37A/CMOEjQNChHFcsDzaK9kCgcHlVhs6ovOjoHzxgaiZ/vkMuV/OrPeRy qCaeA75S6aTX0AfgdUwHoCKuGqpptV6Z0FDa+0StSayb4wtD40Jk6td+Zy4BU3rHQzKmjAy/jYNBAspg 0KNqBS8yDPcipxPSNwpgZdmIoseWIihjIj3yoelKE9 6kcg02aimnZlnP1udGtCoeisczpatLFW0xAYedy3qxlvpN7+dLl++Uq+nlH0Pdpq/xdOeRZahVUu/K9e 5VwPsX3F69n/SuelbwezSuq+t8i7n+U2oeeq2BsOJIA7c3REbFuu2xZ0nVss3hNmQl5Z8VWAsIs3M1YL J1nTO/say/gBY0cGlUyMMCUU1kAkMAov32hIEDYomk /2mvxk93HLrTbWkLFG9Jp5gyF+ua7OV8FbIbDc0sSY/1L2cy5hDYslWzsTpFBwujPJEXeQ5Q32lB+J2O Rc1N302SBkIIYV46Kkywv2S6cb1gnN2hvnjy5m2uZo1C3sgW0VM5Y0a3QmrTq0Wh4ccHby0cdzXUYSed Z8q1txM9xMxM2wEEcXt3aNONRs4JzSnBD+f8KDq/сергей [file] 5PHl/FjxKc4O9Qc2dvO3NV7aK+ZUeDjer7BM3bF+Сергей [file] biAKMDAwMDAwMDUyMyAwMDAwMCBuIAowMDAwMDAwNj DnAPGiLQFmQZ2oDdDsOACfZEC8ATZuDTLyJOQhurULJOHrIIVnJKq0CPKzYDMqPMDhGLqkSSJsDYCpQI H3TBEkGVOcVP8lBrIeGPFwBVPrOSZqWAMkCWUqtnIEELOsMBTrYRE8BNHdZRFiODXrLBflCLQtAWGgLb q1OFPuVXNjUI3sQaLgABBfAXE1YJGkQTOsKOEjdeNT OYSlMUT9Dfc2XsOeGGRkBCTqOOatYTQhYITtZpI8NGEvWYDrPD9tCyDaOOCvHLD3XhQwVMEdXEQnfjYQ UCSjQVNzMOB1IrYgEQBlPVCxGCnzJAHrQMWuNENhJWC7EZY9ANGoCpVkYXfeMUJTHJfNS4YcupDvYwDV Q4weVd7kOoHeSIOQF2Fre5HiIRDjWLHDSg0+BpU4KSW4jNYfAnb7LjWfEvxsOESEFq== ID Date Data Source [id number] 04/15/2021 11:05:37 AM EDT [facility] [place] [facility] SPECIMEN DESCRIPTION URINE, COLLE CTION METHOD NOT SPECIFIEDCULTURE RESULTS NO GROWTHREPORT STATUS FINAL 04/15/2021 Name Value Range Interpretation Code Description Data Romi rce(s) Supporting Document(s) ID Date Data Source [id number] 04/14/2021 12:33:31 PM EDT [facility] Name Value Range Interpretation Code Description Data Romi rce(s) Supporting Document(s) COLOR [facility] APPEARANCE [facility] SPEC GRAV URINE 1.020 (1.003-1.030) [facility] PH URINE 6.0 (5.0-7.5) [facility] [place] [facility] LEUK ESTERASE (NEG) [facility] NITRITE URINE (NEG) [facility] PROTEIN URINE (NEG) [facility] GLUCOSE URINE (NEG) [facility] KETONE URINE (NEG) [facility] [place] [facility] STEPHEN UROBILINOGEN 0.2 mg/dL (0-1.0) [facility] [place] [facility] ZAFAR BILIRUBIN URINE (NEG) [facility] [place] [facility] BLOOD/HGB URINE (NEG) [facility] [place] [facility] ID Date Data Source [id number] 04/14/2021 10:42:38 PM EDT [facility] Name Value Range Interpretation Code Description Data Romi rce(s) Supporting Document(s) ROOM TEMP AB SCREEN [facility] ROOM TEMP AB SCREEN NEGATIVE ID Date Data Source [id number] 04/14/2021 09:03:24 PM EDT [facility] [place] [facility] SPEC EXP DATE 04/18/2021ATI ENT ABO/Rh O NEGATIVEANTIBODY SCREEN NEGATIVETESTING SITE PERFORMED AT [address] [place] [id number] Name Value Range Interpretation Code Description Data Romi rce(s) Supporting Document(s) TYPE AND SCREEN [facility] [place] [facility] ANTIBODY SCREEN NEGATIVE ID Date Data Source [id number] 04/14/2021 12:52:19 PM EDT [facility] Name Value Range Interpretation Code Description Data Romi rce(s) Supporting Document(s) HEMOGLOBIN A1C @ 5.3 % (4.0-6.0) [facility] [place] [facility] GARCIA Performed using Siemens [place] immunoassa y.Care must be taken when interpreting GbX9qjzvwykd in patients with a hemoglobin variantor decreased erythrocyte lifespan. Values 5.7 - 6.4% suggest prediabetes.Values >=6.5% are diagnostic for diabetes.REFERENCE: DIABETES CARE 2018: 41(S13-S27). EST AVERAGE GLUCOSE 105 mg/dL [facility] ID Date Data Source [id number] 04/14/2021 12:48:58 PM EDT [facility] Name Value Range Interpretation Code Description Data Romi rce(s) Supporting Document(s) NT PRO BNP 1465 pg/mL (0-125) H [facility] [place] [facility] ID Date Data Source [id number] 04/14/2021 12:48:58 PM EDT [facility] Name Value Range Interpretation Code Description Data Romi rce(s) Supporting Document(s) SODIUM 139 mmol/L (136-145) [facility] POTASSIUM 4.7 mmol/L (3.6-5.2) [facility] CHLORIDE 112 mmol/L (100-108) H [facility] CO2 19 mmol/L (22-31) L [facility] ANION GAP 8 mmol/L (7-16) [facility] UREA NITROGEN 22 mg/dL (7-24) [facility] CREATININE 1.37 mg/dL (0.80-1.30) H [facility] BUN/CREAT RATIO 16.1 RATIO (10.0-20.0) [facility] GLUCOSE 78 mg/dL (70-99) [facility] CALCIUM 8.2 mg/dL (8.4-10.2) L [facility] TOTAL PROTEIN 6.9 g/dL (6.4-8.2) [facility] ALBUMIN 3.7 g/dL (3.5-4.6) [facility] GLOBULIN 3.2 g/dL (2.7-4.3) [facility] ALB/GLOB RATIO 1.2 RATIO [facility] ALKALINE PHOSPHATASE 118 U/L (45-117) H [facility] BILIRUBIN,TOTAL 0.4 mg/dL (0.0-1.0) [facility] [place] [facility] PLEASE NOTE:Total bilirubin results may be falselyelevated in patients taking Eltrombopag. AST (SGOT) 18 U/L (11-39) [facility] ALT (SGPT) 19 U/L (12-78) [facility] GFR 55 ml/min/1.73m2 (>59) L [facility] GFR ( AMER) >60 ml/min/1.73m2 (>59) [facility] GFR INTERPRETATION [facility] --NORMAL KIDNEY FUNCTION OR MILD DISEASE - GFR >OR= 60CHRONIC KIDNEY DISEASE - GFR 15 - 59RENAL FAILURE - GFR <15 Est. GFR calculation based on the MDRDstudy equation, which assumes a steadystate for creatinine. Est. GFR should notbe used for medication dosing. ID Date Data Source [id number] 04/14/2021 12:39:14 PM EDT [facility] Name Value Range Interpretation Code Description Data Romi rce(s) Supporting Document(s) APTT 31.3 s (22.0-34.3) [facility] [place] [facility] ID Date Data Source [id number] 04/14/2021 12:39:14 PM EDT [facility] Name Value Range Interpretation Code Description Data Romi rce(s) Supporting Document(s) PT 11.3 s (9.2-11.9) [facility] INR 1.09 [facility] SUGGESTED THERAPEUTIC RANGES USING INR F ORSTABILIZED ANTICOAGULATED PATIENTS:STANDARD DOSE THERAPY INR 2.0-3.0 DVT, PE, PREVENT DVT OR EMBOLISMHIGH DOSE THERAPY INR 2.5-3.5 PREVENT EMBOLISM FROM MECHANICAL HEART VALVE ID Date Data Source [id number] 04/14/2021 12:23:49 PM EDT [facility] [place] [facility] Name Value Range Interpretation Code Description Data Romi rce(s) Supporting Document(s) WBC 7.5 10*3/uL (4.1-11.0) [facility] [place] [facility] [place] RBC 3.62 10*6/uL (4.60-6.10) L [facility] HGB 11.0 g/dL (13.5-18.0) L [facility] [place] [facility] HCT 33.4 % (41.0-53.0) L [facility] MCV 92.2 fL (80.0-95.0) [facility] MCH 30.5 pg (27.0-32.0) [facility] MCHC 33.1 g/dL (32.0-36.0) [facility] RDW 16.3 % (10.5-14.5) H [facility] PLT 200 10*3/uL (150-450) [facility] MPV 8.8 fL (7.1-10.7) [facility] NEUT % 63.1 % (35.0-75.0) [facility] LYMPH % 29.0 % (16.0-52.0) [facility] MONO % 5.8 % (0.0-8.0) [facility] EOS % 1.4 % (0.0-5.0) [facility] BASO % 0.7 % (0.0-4.0) [facility] NEUT # 4.7 10*3/uL (1.8-7.7) [facility] LYMPH # 2.2 10*3/uL (1.2-4.8) [facility] MONO # 0.4 10*3/uL (0.0-0.8) [facility] Eosinophils [#/volume] in Blood by Automated count 0.1 10*3/uL (0.0-0 .5) [facility] BASO # 0.1 10*3/uL (0.0-0.2) [facility] [place] [facility] ID Date Data Source [id number] 04/14/2021 09:42:49 AM EDT [facility] Name Value Range Interpretation Code Description Data Romi rce(s) Supporting Document(s) POC SOURCE [facility] PUNCTURE SITE [facility] O2 THERAPY [facility] KB TEST [facility] POC PH 7.27 pH (7.35-7.45) L [facility] POC PCO2 32.7 MMHG (32.0-48.0) [facility] POC PO2 89 MMHG (83-108) [facility] POC SAT O2 96 % (95-99) [facility] POC BASE DEFICIT 11 MMOL/L (0-2) H [facility] POC HCO3 15.1 MMOL/L (21.0-29.0) L [facility] POC TOTAL CO2 16 MMOL/L (23.0-32.0) L [facility] [place] [facility] PERFORMED BY [facility] CLINICAL STAFF ID Date Data Source [id number] 04/15/2021 10:33:27 AM EDT [facility] Name Value Range Interpretation Code Description Data Romi rce(s) Supporting Document(s) SPECIMEN DESCRIPTION [facility] STAPH SCREEN RESULTS (ONEGSA) A [facility] COMMENT [facility] GENE TO DETECT STAPH AUREUS. (2) RT-P [...] [place] This lab was reported by [facility]. ID Date Data Source [id number] 04/15/2021 07:17:38 AM EDT [facility] [place] [facility] GARCIA Name Value Range Interpretation Code Description Data Romi rce(s) Supporting Document(s) SPECIMEN DESCRIPTION [facility] COVID 19 RESULT (NDET) [facility] [place] [facility] NEGATIVE COVID-19 RESULTS DONOT PRECLUDE COVID-2019 INFECTION ANDSHOULD NOT BE USED THE SOLE BASISFOR PATIENT MANAGEMENT DECISIONS. COMMENT [facility] [place] [facility] THE [place] FDA HAS MADE THIS TEST AVAILABL EUNDER AN EMERGENCY USE AUTHORIZATION(EUA) FOR THE DETECTION AND/OR DIAGNOSISOF THE VIRUS THAT CAUSES COVID-19.THIS ASSAY AMPLIFIES AND DETECTS TARGETDNA USING SIZE STAMPER- MEDIATEDAMPLIFICATIONTESTING PERFORMED ON [email or web address] FIRST TEST [facility] EMPLOYED IN HLTHCARE [facility] SYMPTOMATIC [facility] Sharpe DATE OF SYMPT ONSET [facility] HOSPITALIZED [facility] ICU [facility] [place] [facility] CONGREGATE CARE SET [facility] ID Date Data Source [id number] 04/09/2021 06:14:43 PM EDT [facility]FORMATIONPatient MRN Name Date of Age Gend*PT [id number] Adrian Andrews 1970 50 years M ---PT Location Admission Date/Time Visit ID Attending Provider --- --- --- --- EPI ID CSN Admitting Provider [id number] ---ConsultAssessment/Plan:50-year-old pleasant gentleman referred with most likely [...] None Highest education level: NoneOccupational History Occupation: [employer] Comment: 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 Use Smoking status: Current Every [...] Social Gatherings with Friends and Family: Attends [employer] Services: Active Member of Clubs or Organizations: [...] rce(s) Supporting Document(s) ID Date Data Source [id number] 02/12/2021 02:29:00 PM EDT [facility] FASTING: UNKNOWNReceived: 02/08/2021 at 08:04:00 QPT: [facility], [address], [address] [place], [address], Jose Valentine MD Received: 02/08/2021 at 08:04:00 AMD : [facility], [address], [place], [address], Danielito Baum M.D.,PhD Name Value Range Interpretation [...] is approximately 13% higher for peopleidentified as -Turkmen. eGFR NON-AFR. CHINESE 74 mL/min/1.73m2 > OR = 60 Normal [...] results) [facility] ID Date Data Source [id number] 02/12/2021 02:29:00 PM EDT [facility] FASTING: UNKNOWNReceived: 02/08/2021 at 08:04:00 QPT: [facility], [address], [address] [place], [address], Jose Valentine MD Received: 02/08/2021 at 08:04:00 AMD : [facility], [address], [place], [address], Danielito Baum M.D.,PhD Name Value Range Interpretation Code Description Data Romi rce(s) Supporting Document(s) Natriuretic peptide.B prohormone N-Terminal [Mass/volu me] in Serum or Plasma 578 pg/mL Above high normal [facility] For Heart Failure (HF) diagnosis, refere nce ranges inpatients with dyspnea are based on Shana JL, Et al.Am [employer] Cardiol. 2018;71:6626-1166.18-49 years:<= 300 pg/mL Normal, HF unlikely>= 450 [...] Clin Biochem. 2010;43:1405-10.For additional information, please refer [email or web address](This link is being provided for informational/educational purposes only.) Your request to have a duplicate copy faxed has been acknowledged. Queued to: [id number] COLLECTION DATE RECEIVED. WE HAVE USEDTHE DATE THE SPECIMEN WAS RECEIVED BY [facility] THE COLLECTION DATE. IF THISIS INCORRECT, PLEASE CONTACT CLIENT SERVICES.PHONE NUMBER: [phone] ID Date Data Source [id number] 01/24/2021 12:50:00 PM EDT [facility] Name Value Range Interpretation Code Description Data Romi rce(s) Supporting Document(s) SARS-CoV-2 (COVID-19) RNA [Presence] in Respiratory specimen by LEON with probe detection Not Detected [facility] This lab was ordered by [facility] and reported by [employer]. 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 The patient was examined and there are no changes to the H&P.Risks/benefits and alternatives explained to patient/ and or family who iswilling to proceed.Specific risks explained include but are not limited to: contrast reaction,contrast induced nephropathy, vascular problems including stroke, [place] and evendeath.Signature: Susan House II, MDInterventional CardiologyDate: December 10, 2020Time: 1:26 PM Name Value Range Interpretation Code Description Data Romi rce(s) Supporting Document(s) ID Date Data Source [id number] 12/10/2020 09:50:00 AM [facility]T [facility] Name Value Range Interpretation Code Description Data Romi rce(s) Supporting Document(s) SARS coronavirus 2 RNA [Presence] in Res piratory specimen by LEON with probe detection NOT DETECTED [facility] This lab was reported by [facility]. ID Date Data Source [id number] 12/10/2020 11:03:31 AM EDT [facility] [place] [facility] Name Value Range Interpretation Code Description Data Romi rce(s) Supporting Document(s) SPECIMEN DESCRIPTION Lab [facility]ia n[facility] of [facility] INFLUENZA A (NEG) [facility] [place] of [facility] INFLUENZA B (NEG) [facility] [place] of [facility] RSV (NEG) [facility] [place] of [facility] COMMENT [facility] [place] of [facility] THE [place] FDA HAS MADE THIS TEST AVAILABL EUNDER AN EMERGENCY USE AUTHORIZATION(EUA) FOR THE DETECTION AND/OR DIAGNOSISOF THE VIRUS THAT CAUSES COVID-19.PERFORMED AT [address] [place] [id number] COVID19 RESULT (NDET) [facility] [place] of [facility] THIS ASSAY AMPLIFIES AND DETECTSTHE TARG ET RNA USING REAL-TIME PCR.TESTING PERFORMED ON [facility] GENEXPERTNEGATIVE 2019_NCOV RT-PCR RESULTS DONOT PRECLUDE 2019_NCOV INFECTION ANDSHOULD NOT BE USED THE SOLE BASISFOR PATIENT MANAGEMENT DECISIONS. FIRST TEST [facility] [place] of [facility] EMPLOYED IN HLTHCARE Lab [facility] of [place] SYMPTOMATIC [facility] [place] [facility] [place] DATE OF SYMPT ONSET Lab [facility] of [place] HOSPITALIZED [facility] [place] of [place] ICU [facility] [place] [facility] [place] CONGREGATE CARE SET Lab [facility] [place] [facility] [place] [facility] [place] ID Date Data Source [id number] 12/10/2020 11:11:37 AM EDT [facility] [place] [facility] [place] Name Value Range Interpretation Code Description Data Romi rce(s) Supporting Document(s) SODIUM 140 mmol/L (136-145) [facility] [place] [facility] [place] POTASSIUM 4.4 mmol/L (3.6-5.2) [facility] [place] [facility] [place] CHLORIDE 108 mmol/L (100-108) [facility] [place] [facility] [place] CO2 27 mmol/L (22-31) [facility] [place] [facility] [place] ANION GAP 5 mmol/L (7-16) L [facility] [place] [facility] [place] UREA NITROGEN 7 mg/dL (7-24) [facility] [place] [facility] [place] CREATININE 1.40 mg/dL (0.80-1.30) H [facility] [place] [facility] [place] BUN/CREAT RATIO 5.0 RATIO (10.0-20.0) L [facility] [place] [facility] [place] GLUCOSE 79 mg/dL (70-99) [facility] [place] [facility] [place] CALCIUM 8.9 mg/dL (8.4-10.2) [facility] [place] [facility] [place] GFR 53 ml/min/1.73m2 (>59) L [facility] [place] [facility] [place] GFR ( AMER) >60 ml/min/1.73m2 (>59) [facility] [place] [facility] [place] GFR INTERPRETATION Lab [facility] of [place] --NORMAL KIDNEY FUNCTION OR MILD DISEASE - GFR >OR= 60CHRONIC KIDNEY DISEASE - GFR 15 - 59RENAL FAILURE - GFR <15 Est. GFR calculation based on the MDRDstudy equation, which assumes a steadystate for creatinine. Est. GFR should notbe used for medication dosing. ID Date Data Source [id number] 12/10/2020 10:59:23 AM EDT [facility] [place] [facility] [place] Name Value Range Interpretation Code Description Data Romi rce(s) Supporting Document(s) WBC 5.2 10*3/uL (4.1-11.0) [facility] [place] of [place] RBC 3.93 10*6/uL (4.60-6.10) L [facility] [place] [facility] [place] HGB 12.3 g/dL (13.5-18.0) L [facility] [place] [facility] [place] HCT 35.5 % (41.0-53.0) L [facility] [place] [facility] [place] PERFORMED AT [address] [place] [address] [place] [address] MCV 90.3 fL (80.0-95.0) [facility] [place] [facility] [place] MCH 31.2 pg (27.0-32.0) [facility] [place] [facility] [place] MCHC 34.5 g/dL (32.0-36.0) [facility] [place] [facility] [place] RDW 15.2 % (10.5-14.5) H [facility] [place] [facility] [place] PLT 205 10*3/uL (150-450) [facility] [place] [facility] [place] MPV 8.0 fL (7.1-10.7) [facility] [place] [facility] [place] ID Date Data Source LIPID PANEL (CARDIAC RISK) 11/05/2020 12:00:00 AM EST eCW1 ( [facility]) Name Value Range Interpretation Code Description Data Romi rce(s) Supporting Document(s) Cholesterol [Moles/volume] in Serum or Plasma 220 <200 CHOLESTEROL LEVEL [facility] ([facility]) Triglyceride [Mass/volume] in Serum or Plasma by calculation 98 <150 TRIGLYCERIDES LEVEL [facility] ([facility]) 4.313 <5 CHOLESTEROL RISK RATIO eCW ([facility]) Cholesterol in HDL [Moles/volume] in Serum or Plasma 51 >40 HDL CHOLESTEROL eCW1 ([facility]) 169 NON-HDL-C eCW1 ([facility]) Cholesterol in LDL [Mass/volume] in Serum or Plasma by calculation 149 <100 LDL CHOLESTEROL eCW1 ([facility]) ID Date Data Source FREE T4 & TSH PANEL 11/05/2020 12:00:00 AM EST eCW1 ([facility]) Name Value Range Interpretation Code Description Data Romi rce(s) Supporting Document(s) 0.725 0.358-3.740 THYROID STIMULATING HORM ONE eCW1 ([facility]) 0.95 0.76-1.46 FREE T4 eCW1 ([facility]) ID Date Data Source Comprehensive Metabolic Profile (CMP) 11/05/2020 12:00:00 AM EST eCW1 ([facility]) Name Value Range Interpretation Code Description Data Romi rce(s) Supporting Document(s) 73 70-100 GLUCOSE, FASTING eCW1 ([facility]) 7 7-18 BLOOD UREA NITROGEN eCW1 ([facility]) 1.28 0.70-1.30 CREATININE FOR GFR eCW1 ([facility]) 107 98-107 CHLORIDE LEVEL eCW1 ([facility]) > 60.0 >56 GLOMERULAR FILTRATION RATE eCW 1 ([facility]) 138 136-145 SODIUM LEVEL eCW1 ([facility]) 5.4 3.5-5.1 POTASSIUM SERUM eCW1 ([facility]) 14 7-37 AST/SGOT eCW1 ([facility]) 135 45-117 ALKALINE PHOSPHATASE eCW1 ([facility]) 9.3 8.5-10.1 CALCIUM LEVEL eCW1 ([facility]) 26 21-32 CARBON DIOXIDE LEVEL eCW1 ([facility]) 19 12-78 ALT/SGPT eCW1 ([facility]) 7.3 6.4-8.2 TOTAL PROTEIN eCW1 ([facility]) 3.7 3.2-5.2 ALBUMIN eCW1 ([facility]) 1.0 ALBUMIN/GLOBULIN RATIO eCW1 ([facility]) 0.5 0.2-1.0 BILIRUBIN,TOTAL eCW1 ([facility]) ID Date Data Source CBC - Complete Blood Count 11/05/2020 12:00:00 AM EST eCW1 ( [facility]) Name Value Range Interpretation Code Description Data Romi rce(s) Supporting Document(s) 4.30 4.30-6.10 eCW1 ([facility]) 42.0 42.0-52.0 eCW1 ([facility]) 5.6 4.0-10.0 eCW1 ([facility]) 12.7 13.5-17.5 eCW1 ([facility]) 29.5 27.0-33.0 eCW1 ([facility]) 97.7 80.0-96.0 eCW1 ([facility]) 30.2 32.0-36.5 eCW1 ([facility]) 14.6 11.5-14.5 eCW1 ([facility]) 221 150-450 eCW1 ([facility]) Procedure Social History Code Duration Value Status Description Data Source(s ) Smoking 06/26/2021 12:00:00 AM EDT Current Smoker completed Curre nt Smoker eCW1 ([facility]) Smoking 06/26/2021 12:00:00 AM EDT Current Smoker completed Curre nt Smoker eCW1 ([facility]) Smoking 06/25/2021 12:00:00 AM EDT Current Smoker completed Curre nt Smoker eCW1 ([facility]) Alcohol intake 04/26/2021 12:00:00 AM EDT Ex-drinker (finding) comp leted Ex- drinker (finding) [facility] Alcohol intake 04/23/2021 12:00:00 AM EDT Ex-drinker (finding) comp leted Ex- drinker (finding) [facility] Alcohol intake 04/14/2021 12:00:00 AM EDT Ex-drinker (finding) comp leted Ex- drinker (finding) [facility] Alcohol intake 04/07/2021 12:00:00 AM EDT Ex-drinker (finding) comp leted Ex- drinker (finding) [facility] Tobacco use and exposure 02/06/2021 12:00:00 AM EDT Never used co mpleted Never used [facility] Cigarette pack-years 02/06/2021 12:00:00 AM EDT UNK completed [facility] Cigarettes smoked current (pack per day) - Reported 02/07/20 12:00:00 AM EDT UNK completed [facility] Smoking 02/06/2021 12:00:00 AM EDT Current every day smoker co mpleted Current every day smoker [facility] Alcohol intake 02/06/2021 12:00:00 AM EDT Ex-drinker (finding) comp leted Ex- drinker (finding) [facility] Alcohol intake 01/06/2021 12:00:00 AM EDT Ex-drinker (finding) comp leted Ex- drinker (finding) [facility] Alcohol intake 12/10/2020 12:00:00 AM EDT Not Currently completed [facility] Cigarette pack-years 12/10/2020 12:00:00 AM EDT UNK completed [facility] Cigarettes smoked current (pack per day) - Reported 12/11/19 12:00:00 AM EDT UNK completed [facility] Smoking 12/10/2020 12:00:00 AM EDT Former smoker completed Former smoker [facility] Alcohol intake 12/09/2020 12:00:00 AM EDT Not Currently completed [facility] Cigarette pack-years 12/09/2020 12:00:00 AM EDT UNK completed [facility] Cigarettes smoked current (pack per day) - Reported 12/10/19 12:00:00 AM EDT UNK completed [facility] Smoking 12/09/2020 12:00:00 AM EDT Former smoker completed Former smoker [facility] Smoking 12/06/2020 12:00:00 AM EDT Current Smoker completed Curre nt Smoker eCW1 ([facility]) Smoking 12/06/2020 12:00:00 AM EDT Current Smoker completed Curre nt Smoker eCW1 ([facility]) Smoking 12/06/2020 12:00:00 AM EDT Current Smoker completed Curre nt Smoker eCW1 ([facility]) Smoking 12/06/2020 12:00:00 AM EDT Current Smoker completed Curre nt Smoker eCW1 ([facility]) Smoking 11/05/2020 12:00:00 AM EST Current Smoker completed Curre nt Smoker eCW1 ([facility]) Smoking 11/05/2020 12:00:00 AM EST Current Smoker completed Curre nt Smoker eCW1 ([facility]) Smoking 11/05/2020 12:00:00 AM EST Current Smoker completed Curre nt Smoker eCW1 ([facility]) Smoking 11/05/2020 12:00:00 AM EST Current Smoker completed Curre nt Smoker eCW1 ([facility]) 12/09/2020 12:00:00 AM EDT Cigarette Smoker completed Cig arette Smoker [facility] 12/09/2020 12:00:00 AM EDT Current smoker completed Curre nt smoker [facility] 12/09/2020 12:00:00 AM EDT Cigarette Smoker completed Cig arette Smoker [facility] 12/09/2020 12:00:00 AM EDT Current smoker completed Curre nt smoker [facility] Vital Signs ID Date Data Source UNK Name Value Range Interpretation Code Description Data Source(s) Body weight 138.0 [lb_av] 138.0 [lb_av] eCW1 ([facility]) Body height 69 [in_i] 69 [in_i] eCW1 ([facility]) Body mass index (BMI) [Ratio] 20.38 kg/m2 20.38 kg/m2 eCW1 ([facility]) Heart rate 117 /min 117 /min eCW1 ([facility]) Respiratory rate 18 /min 18 /min eCW1 ([facility]) Body temperature 98.0 [degF] 98.0 [degF] eCW1 ( [facility]) Systolic blood pressure 114 mm[Hg] 114 mm[Hg] e CW1 ([facility]) Diastolic blood pressure 64 mm[Hg] 64 mm[Hg] eCW1 ([facility]) Body weight 141.4 [lb_av] 141.4 [lb_av] eCW1 ([facility]) Diastolic blood pressure 60 mm[Hg] 60 mm[Hg] eCW1 ([facility]) Body height 69 [in_i] 69 [in_i] eCW1 ([facility]) Body mass index (BMI) [Ratio] 20.88 kg/m2 20.88 kg/m2 eCW1 ([facility]) Heart rate 130 /min 130 /min eCW1 ([facility]) Respiratory rate 18 /min 18 /min eCW1 ([facility]) Body temperature 98.7 [degF] 98.7 [degF] eCW1 ( [facility]) Systolic blood pressure 110 mm[Hg] 110 mm[Hg] e CW1 ([facility]) Systolic blood pressure 100 mm[Hg] 100 mm[Hg] [facility] Respiratory rate 16 /min 16 /min [facility] Body height 172.7 cm 172.7 cm [facility] Body weight 60.328 kg 60.328 kg [facility] Body mass index (BMI) [Ratio] 20.22 kg/m2 20.22 kg/m2 [facility] Heart rate 72 /min 72 /min [facility] Diastolic blood pressure 60 mm[Hg] 60 mm[Hg] [facility] Systolic blood pressure 101 mm[Hg] 101 mm[Hg] [facility] Diastolic blood pressure 71 mm[Hg] 71 mm[Hg] [facility] Heart rate 69 /min 69 /min [facility] Body temperature 36.94 Yisel 36.94 Yisel [facility] Respiratory rate 18 /min 18 /min [facility] Oxygen saturation in Arterial blood by Pulse oximetry 92 % 92 % [facility] Body weight 61.8 kg 61.8 kg [facility] Body mass index (BMI) [Ratio] 20.12 kg/m2 20.12 kg/m2 [facility] Body height 175.3 cm 175.3 cm [facility] Systolic blood pressure 113 mm[Hg] 113 mm[Hg] [facility] Diastolic blood pressure 64 mm[Hg] 64 mm[Hg] [facility] Heart rate 62 /min 62 /min [facility] Respiratory rate 18 /min 18 /min [facility] Oxygen saturation in Arterial blood by Pulse oximetry 97 % 97 % [facility] Systolic blood pressure 104 mm[Hg] 104 mm[Hg] [facility] Diastolic blood pressure 68 mm[Hg] 68 mm[Hg] [facility] Heart rate 67 /min 67 /min [facility] Respiratory rate 16 /min 16 /min [facility] Oxygen saturation in Arterial blood by Pulse oximetry 99 % 99 % [facility] room air Systolic blood pressure 136 mm[Hg] 136 mm[Hg] [facility] Diastolic blood pressure 90 mm[Hg] 90 mm[Hg] [facility] Heart rate 69 /min 69 /min [facility] Body height 175.3 cm 175.3 cm [facility] Body weight 64.864 kg 64.864 kg [facility] Body mass index (BMI) [Ratio] 21.12 kg/m2 21.12 kg/m2 [facility] Oxygen saturation in Arterial blood by Pulse oximetry 99 % 99 % [facility] [place] body weight 160 [lb_av] 160 [lb_av] MEDEN T ([facility], ) Body height 69 [in_i] 69 [in_i] [facility] 5'9" Body weight 144.00 [lb_av] 144.00 [lb_av] MEDEN T ([facility], ) Body mass index (BMI) [Ratio] 21.3 kg/m2 21.3 k g/m2 [facility] ([facility], ) Heart rate 86 /min 86 /min [facility] ([facility], ) Body surface area Derived from formula 1.80 m2 1.80 m2 [facility] ([facility], ) Body weight 65.318 kg 65.318 kg [facility] ([facility], ) Diastolic blood pressure 70 mm[Hg] 70 mm[Hg] [facility] Systolic blood pressure 106 mm[Hg] 106 mm[Hg] [facility] Systolic blood pressure 136 mm[Hg] 136 mm[Hg] [facility] Diastolic blood pressure 80 mm[Hg] 80 mm[Hg] [facility] Heart rate 75 /min 75 /min [facility] Body height 175.3 cm 175.3 cm [facility] Body weight 67.586 kg 67.586 kg [facility] Body mass index (BMI) [Ratio] 22.00 kg/m2 22.00 kg/m2 [facility] Oxygen saturation in Arterial blood by Pulse oximetry 97 % 97 % [facility] Respiratory rate 16 /min 16 /min [facility] Oxygen saturation in Arterial blood by Pulse oximetry 99 % 99 % [facility] Systolic blood pressure 120 mm[Hg] 120 mm[Hg] [facility] Diastolic blood pressure 72 mm[Hg] 72 mm[Hg] [facility] Heart rate 74 /min 74 /min [facility] Body temperature 36.39 Yisel 36.39 Yisel [facility] Body height 175.3 cm 175.3 cm [facility] Body weight 65.318 kg 65.318 kg [facility] Body mass index (BMI) [Ratio] 21.27 kg/m2 21.27 kg/m2 [facility] Systolic blood pressure 152 mm[Hg] 152 mm[Hg] [facility] Diastolic blood pressure 100 mm[Hg] 100 mm[Hg] [facility] Heart rate 81 /min 81 /min [facility] Body height 175.3 cm 175.3 cm [facility] Body weight 65.499 kg 65.499 kg [facility] Body mass index (BMI) [Ratio] 21.32 kg/m2 21.32 kg/m2 [facility] Oxygen saturation in Arterial blood by Pulse oximetry 98 % 98 % [facility] Body weight 143 [lb_av] 143 [lb_av] [facility] ([facility]) Body height 69 [in_i] 69 [in_i] W1 ([facility]) Body mass index (BMI) [Ratio] 21.12 kg/m2 21.12 kg/m2 [facility] ([facility]) Heart rate 90 /min 90 /min W1 ([facility]) Respiratory rate 18 /min 18 /min W1 ([facility]) Body temperature 97.1 [degF] 97.1 [degF] W1 ( [facility]) Systolic blood pressure 144 mm[Hg] 144 mm[Hg] e CW1 ([facility]) Diastolic blood pressure 84 mm[Hg] 84 mm[Hg] eCW1 ([facility]) Systolic blood pressure 142 mm[Hg] 142 mm[Hg] M EDENT ([facility]) Diastolic blood pressure 70 mm[Hg] 70 mm[Hg] MEDENT ([facility]) Body height 69 [in_i] 69 [in_i] [facility] ([facility]) 5'9" Body weight 143.25 [lb_av] 143.25 [lb_av] MEDEN T ([facility]) Body mass index (BMI) [Ratio] 21.2 kg/m2 21.2 k g/m2 [facility] ([facility]) [place] body weight 160 [lb_av] 160 [lb_av] MEDEN T ([facility]) Body weight 64.978 kg 64.978 kg [facility] ([facility]) Body surface area Derived from formula 1.79 m2 1.79 m2 [facility] ([facility]) Systolic blood pressure 128 mm[Hg] 128 mm[Hg] e CW1 ([facility]) Respiratory rate 18 /min 18 /min eCW1 ([facility]) Diastolic blood pressure 76 mm[Hg] 76 mm[Hg] eCW1 ([facility]) Body weight 148 [lb_av] 148 [lb_av] eCW1 ([facility]) Body temperature 97.6 [degF] 97.6 [degF] eCW1 ( [facility]) Body height 69 [in_i] 69 [in_i] eCW1 ([facility]) Body mass index (BMI) [Ratio] 21.85 kg/m2 21.85 kg/m2 eCW1 ([facility]) Heart rate 85 /min 85 /min eCW1 ([facility]) Patient Treatment Plan of Care Planned Activity Planned Date Details Description Data Source (s) Oxycodone Hydrochloride 15 MG Oral Tablet 06/26/2021 12:00:00 AM ED T eCW1 ([facility]) Acetaminophen 325 MG / Hydrocodone Bitartrate 10 MG Or al Tablet 06/26/2021 12:00:00 AM EDT eCW1 ([facility]) Oxycodone Hydrochloride 15 MG Oral Tablet 06/26/2021 12:00:00 AM ED T eCW1 ([facility]) Acetaminophen 325 MG / Hydrocodone Bitartrate 10 MG Or al Tablet 06/26/2021 12:00:00 AM EDT eCW1 ([facility]) Metoprolol Tartrate 25 MG Oral Tablet 06/19/2021 12:00:00 AM EDT eCW1 ([facility]) Folic Acid 1 MG Oral Tablet 04/24/2021 12:00:00 AM EDT [facility] Daily Hoa (THERAGRAN) per tablet 04/24/2021 12:00:00 AM EDT [facility] Aspirin 81 MG Delayed Release Oral Tablet 04/24/2021 12:00:00 AM ED T [facility] Warfarin Sodium 1 MG Oral Tablet 04/23/2021 12:00:00 AM EDT [facility] Metoprolol Tartrate 25 MG Oral Tablet 04/23/2021 12:00:00 AM EDT [facility] ferrous gluconate 324 MG Oral Tablet 04/23/2021 12:00:00 AM EDT [facility] Acetaminophen 325 MG Oral Tablet 04/23/2021 12:00:00 AM EDT [facility] Docusate Sodium 100 MG Oral Capsule 04/22/2021 09:00:00 PM EDT [facility] POLYETHYLENE GLYCOL 3350 142 MG/ML Oral Solution 04/22/2021 07:00:0 0 PM EDT [facility] ondansetron (ZOFRAN) injection 4 mg 04/22/2021 06:22:27 PM EDT [facility] potassium chloride SA (K-DUR,KLOR-CON) CR tablet 40 mE q 04/22/2021 06:22:27 PM EDT [facility] potassium chloride SA (K-DUR,KLOR-CON) CR tablet 20 mE q 04/22/2021 06:22:27 PM EDT [facility] potassium chloride SA (K-DUR,KLOR-CON) CR tablet 20 mE q 04/22/2021 06:22:27 PM EDT [facility] potassium chloride SA (K-DUR,KLOR-CON) CR tablet 10 mE q 04/22/2021 06:22:27 PM EDT [facility] 10 ML Atropine Sulfate 0.1 MG/ML Prefilled Syringe 04/22/2021 06 :22:26 PM EDT [facility] Aluminum Hydroxide 64 MG/ML Oral Suspension 04/22/2021 06:22:26 PM EDT [facility] Bisacodyl 10 MG Rectal Suppository 04/22/2021 06:22:26 PM EDT [facility] Nitroglycerin 0.4 MG Sublingual Tablet 04/22/2021 06:22:26 PM EDT [facility] 50 ML Magnesium Sulfate 40 MG/ML Injection 04/22/2021 06:22:26 PM E DT [facility] 50 ML Magnesium Sulfate 40 MG/ML Injection 04/22/2021 06:22:26 PM E DT [facility] 50 ML Magnesium Sulfate 40 MG/ML Injection 04/22/2021 06:22:26 PM E DT [facility] magnesium sulfate 1 g in dextrose 5% infusion (premix) 04/22/2021 06:22:26 PM EDT [facility] Albuterol 0.83 MG/ML Inhalant Solution 04/22/2021 06:22:25 PM EDT [facility] Patient on Coumadin during hospitalizati on. (To order Coumadin on discharge click the don t prescribe button and go to new orders on discharge section. Coumadin can be ordered there. Alternatively, reconcile the pre admission Coumadin dose if it appears on the list below) 04/17/2021 11:12:17 AM EDT [facility] ezetimibe 10 MG Oral Tablet 02/06/2021 12:00:00 AM EDT [facility] 24 HR Nicotine 0.292 MG/HR Transdermal Patch 02/06/2021 12:00:00 AM EDT [facility] Furosemide 20 MG Oral Tablet 02/06/2021 12:00:00 AM EDT [facility] Lisinopril 5 MG Oral Tablet 01/07/2021 12:00:00 AM EDT [facility] Aspirin 81 MG Delayed Release Oral Tablet 12/09/2020 12:00:00 AM ED T [facility] Furosemide 40 MG Oral Tablet 12/09/2020 12:00:00 AM EDT [facility] atorvastatin 80 MG Oral Tablet 12/06/2020 12:00:00 AM EDT eCW1 ([facility]) 12 HR Bupropion Hydrochloride 100 MG Extended Release Oral Tablet 12/06/2020 12:00:00 AM EDT eCW1 ([facility]) atorvastatin 80 MG Oral Tablet 12/06/2020 12:00:00 AM EDT eCW1 ([facility]) 12 HR Bupropion Hydrochloride 100 MG Extended Release Oral Tablet 12/06/2020 12:00:00 AM EDT eCW1 ([facility]) albuterol (PROVENTIL HFA;VENTOLIN HFA) 108 (90 Base) M CG/ACT inhaler 12/06/2020 12:00:00 AM EDT [facility] atorvastatin 80 MG Oral Tablet 12/06/2020 12:00:00 AM EDT [facility] gabapentin 800 MG Oral Tablet 12/06/2020 12:00:00 AM EDT [facility] Sumatriptan 100 MG Oral Tablet 12/06/2020 12:00:00 AM EDT [facility] atorvastatin 80 MG Oral Tablet 12/06/2020 12:00:00 AM EDT eCW1 ([facility]) 12 HR Bupropion Hydrochloride 100 MG Extended Release Oral Tablet 12/06/2020 12:00:00 AM EDT eCW1 ([facility]) 12 HR Bupropion Hydrochloride 100 MG Extended Release Oral Tablet 12/06/2020 12:00:00 AM EDT [facility] atorvastatin 80 MG Oral Tablet 12/06/2020 12:00:00 AM EDT eCW1 ([facility]) 12 HR Bupropion Hydrochloride 100 MG Extended Release Oral Tablet 12/06/2020 12:00:00 AM EDT eCW1 ([facility]) Amitriptyline Hydrochloride 100 MG Oral Tablet 11/25/2020 12:00:00 AM EDT [facility] 168 HR Buprenorphine 0.02 MG/HR Transdermal Patch 11/21/2020 12: 00:00 AM EST [facility] 28 ACTUAT Fluticasone propionate 0.1 MG/ACTUAT Dry Pow tasneem Inhaler [Flovent] 11/06/2020 12:00:00 AM EST [facility] SPIRIVA RESPIMAT 2.5 MCG/ACT AERS 11/06/2020 12:00:00 AM EST [facility] 28 ACTUAT tiotropium 0.0025 MG/ACTUAT Metered Dose Inh aler [Spiriva] 11/05/2020 12:00:00 AM EST eCW1 ([facility]) 28 ACTUAT Fluticasone propionate 0.1 MG/ACTUAT Dry Pow tasneem Inhaler [Flovent] 11/05/2020 12:00:00 AM EST eCW1 ([facility]) Aspirin 81 MG Delayed Release Oral Tablet 11/05/2020 12:00:00 AM ES T eCW1 ([facility]) 28 ACTUAT tiotropium 0.0025 MG/ACTUAT Metered Dose Inh aler [Spiriva] 11/05/2020 12:00:00 AM EST eCW1 ([facility]) 28 ACTUAT Fluticasone propionate 0.1 MG/ACTUAT Dry Pow tasneem Inhaler [Flovent] 11/05/2020 12:00:00 AM EST eCW1 ([facility]) Aspirin 81 MG Delayed Release Oral Tablet 11/05/2020 12:00:00 AM ES T eCW1 ([facility]) 28 ACTUAT tiotropium 0.0025 MG/ACTUAT Metered Dose Inh aler [Spiriva] 11/05/2020 12:00:00 AM EST eCW1 ([facility]) 28 ACTUAT Fluticasone propionate 0.1 MG/ACTUAT Dry Pow tasneem Inhaler [Flovent] 11/05/2020 12:00:00 AM EST eCW1 ([facility]) Aspirin 81 MG Delayed Release Oral Tablet 11/05/2020 12:00:00 AM ES T eCW1 ([facility]) 28 ACTUAT tiotropium 0.0025 MG/ACTUAT Metered Dose Inh aler [Spiriva] 11/05/2020 12:00:00 AM EST eCW1 ([facility]) 28 ACTUAT Fluticasone propionate 0.1 MG/ACTUAT Dry Pow tasneem Inhaler [Flovent] 11/05/2020 12:00:00 AM EST eCW1 ([facility]) Aspirin 81 MG Delayed Release Oral Tablet 11/05/2020 12:00:00 AM ES T eCW1 ([facility]) Hydrocodone Bitartrate 10 MG / Ibuprofen 200 MG Oral Tablet [facility] Ibuprofen 200 MG Oral Tablet [facility]
[2021-07-09] MEDS ORDERED: WARF4TAB52 PO (13:58)
[2021-07-09] MEDS ORDERED: OXYC-1 PO (13:58)
[2021-07-09] MEDS ORDERED: GABA800T4 PO (13:58)
[2021-07-09] MEDS ORDERED: HYDR-3719 PO (13:58)
[2021-07-09] MEDS ORDERED: SUMA100T2 PO (13:58)
[2021-07-09] MEDS ORDERED: METOPROLOL TART 50 MG TAB PO SCH (14:00)
[2021-07-09] MEDS ORDERED: NORCO, ANEXSIA 5/325MG TABLET (HYDROcodone/ACETAMINOPHEN) PO ONE (14:35)
[2021-07-09] MEDS ORDERED: METOPROLOL TART 25 MG TABLET PO ONE (14:35)
[2021-07-09 14:40] LABS: BASO # 0.1 10^3/uL (0.0-0.2); BASO % 0.8 % (0.0-1.0); EOS # 0.1 10^3/uL (0.0-0.5); EOS % 0.7 % (0.0-3.0); HEMOGLOBIN 15.6 g/dl (13.5-17.5); LYMPH # 3.2 10^3/uL (1.5-5.0); LYMPH % 33.7 % (24.0-44.0); MEAN CORPUSCULAR HEMOGLOBIN 28.5 pg (27.0-33.0); MEAN CORPUSCULAR HGB CONC 30.6 g/dl (32.0-36.5); MEAN CORPUSCULAR VOLUME 93.2 fl (80.0-96.0); MONO # 0.5 10^3/uL (0.0-0.8); MONO % 5.6 % (2.0-8.0); NEUTROPHILS # 5.6 10^3/uL (1.5-8.5); NEUTROPHILS % 58.9 % (36.0-66.0); PLATELET COUNT, AUTOMATED 276 10^3/uL (150-450); RED BLOOD COUNT 5.47 10^6/uL (4.30-6.10); WHITE BLOOD COUNT 9.5 10^3/uL (4.0-10.0)
[2021-07-09] MEDS: METOPROLOL 5 MG/5 ML VIAL IV SCH ×3 (14:47→15:05)
[2021-07-09 15:02] LABS: INR 1.19; PROTHROMBIN TIME 15.6 SECONDS (12.7-14.5)
[2021-07-09 15:03] LABS: PARTIAL THROMBOPLASTIN TIME 37.1 SECONDS (25.9-37.0)
[2021-07-09] MEDS ORDERED: FERR32TA PO (15:03)
[2021-07-09 15:14] LABS: BLOOD UREA NITROGEN 19 MG/DL (7-18); CALCIUM LEVEL 9.7 MG/DL (8.5-10.1); CARBON DIOXIDE LEVEL 23 MEQ/L (21-32); CHLORIDE LEVEL 110 MEQ/L (98-107); CK-MB VALUE MASS 2.3 NG/ML (<3.6); CPK CREATINE PHOSPHOKINASE 48 U/L (39-308); CREATININE FOR GFR 1.57 MG/DL (0.70-1.30); GLOMERULAR FILTRATION RATE 49.6 (>56); GLUCOSE, FASTING 112 MG/DL (70-100); MB/CK RELATIVE INDEX 4.79 (< OR =4); POTASSIUM SERUM 4.1 MEQ/L (3.5-5.1); SODIUM LEVEL 136 MEQ/L (136-145); TROPONIN I < 0.02 NG/ML (< 0.10)
--- OUTSIDE RECORDS SUMMARY | 2021-07-09 15:40 | CCD ---
Author Author [facility] Organization [facility] Address Unknown Phone Unavailable Care Team Providers Care Automotive Brake Adjuster Name Role Phone Palmerton, Chandler Unavailable Unavailable Palmerton, Chandler Unavailable Unavailable Palmerton, Chandler Unavailable Unavailable Palmerton, Chandler Unavailable Unavailable Palmerton, Chandler Unavailable Unavailable Palmerton, Chandler Unavailable Unavailable Palmerton, Chandler Unavailable Unavailable Palmerton, Chandler Unavailable Unavailable Palmerton, Chandler Unavailable Unavailable Palmerton, Chandler Unavailable Unavailable Palmerton, Chandler Unavailable Unavailable Palmerton, Chandler Unavailable Unavailable Palmerton, Chandler Unavailable Unavailable Palmerton, Chandler Unavailable Unavailable Palmerton, Chandler Unavailable Unavailable Palmerton, Chandler Unavailable Unavailable Palmerton, Chandler Unavailable Unavailable Palmerton, Chandler Unavailable Unavailable Palmerton, Chandler Unavailable Unavailable Palmerton, Chandler Unavailable Unavailable Palmerton, Chandler Unavailable Unavailable Palmerton, Chandler Unavailable Unavailable Palmerton, Chandler Unavailable Unavailable Palmerton, Chandler Unavailable Unavailable Palmerton, Chandler Unavailable Unavailable Palmerton, Chandler Unavailable Unavailable Palmerton, Chandler Unavailable Unavailable Palmerton, Chandler Unavailable Unavailable Palmerton, Chandler Unavailable Unavailable Palmerton, Chandler Unavailable Unavailable Palmerton, Chandler Unavailable Unavailable Palmerton, Chandler Unavailable Unavailable Palmerton, Chandler Unavailable Unavailable Palmerton, Chandler Unavailable Unavailable Palmerton, Chandler Unavailable Unavailable Palmerton, Chandler Unavailable Unavailable Palmerton, Chandler Unavailable Unavailable Palmerton, Chandler Unavailable Unavailable Palmerton, Chandler Unavailable Unavailable Palmerton, Chandler Unavailable Unavailable Palmerton, Chandler Unavailable Unavailable Palmerton, Chandler Unavailable Unavailable Palmerton, Chandler Unavailable Unavailable Palmerton, Chandler Unavailable Unavailable Palmerton, Chandler Unavailable Unavailable Palmerton, Chandler Unavailable Unavailable Palmerton, Chandler Unavailable Unavailable Palmerton, Chandler Unavailable Unavailable Palmerton, Chandler Unavailable Unavailable Palmerton, Chandler Unavailable Unavailable Palmerton, Chandler Unavailable Unavailable Palmerton, Chandler Unavailable Unavailable Palmerton, Chandler Unavailable Unavailable Palmerton, Chandler Unavailable Unavailable Palmerton, Chandler Unavailable Unavailable Palmerton, Chandler Unavailable Unavailable Palmerton, Chandler Unavailable Unavailable Palmerton, Chandler Unavailable Unavailable Palmerton, Chandler Unavailable Unavailable Palmerton, Chandler Unavailable Unavailable Palmerton, Chandler Unavailable Unavailable LATOYA HOUSE MD Unavailable [...] HOUSE MD Unavailable Unavailable Detor, M Keily HEAD GAUGE UNIT OPERATOR Unavailable Unavailable Detor, M Keily HEAD GAUGE UNIT OPERATOR Unavailable Unavailable Detor, M Keily HEAD GAUGE UNIT OPERATOR Unavailable Unavailable Detor, M Keily HEAD GAUGE UNIT OPERATOR Unavailable Unavailable Detor, M Keily HEAD GAUGE UNIT OPERATOR Unavailable Unavailable Detor, M Keily HEAD GAUGE UNIT OPERATOR Unavailable Unavailable Detor, M Keily HEAD GAUGE UNIT OPERATOR Unavailable Unavailable Detor, M Keily HEAD GAUGE UNIT OPERATOR Unavailable Unavailable Detor, M Keily HEAD GAUGE UNIT OPERATOR Unavailable Unavailable Detor, M Keily HEAD GAUGE UNIT OPERATOR Unavailable Unavailable Detor, M Keily HEAD GAUGE UNIT OPERATOR Unavailable Unavailable Detor, M Keily HEAD GAUGE UNIT OPERATOR Unavailable Unavailable Detor, M Keily HEAD GAUGE UNIT OPERATOR Unavailable Unavailable Detor, M Keily HEAD GAUGE UNIT OPERATOR Unavailable Unavailable Detor, M Keily HEAD GAUGE UNIT OPERATOR Unavailable Unavailable Detor, M Keily HEAD GAUGE UNIT OPERATOR Unavailable Unavailable Detor, M Keily HEAD GAUGE UNIT OPERATOR Unavailable Unavailable Detor, M Keily HEAD GAUGE UNIT OPERATOR Unavailable Unavailable Detor, M Keily HEAD GAUGE UNIT OPERATOR Unavailable Unavailable Detor, M Keily HEAD GAUGE UNIT OPERATOR Unavailable Unavailable Detor, M Keily HEAD GAUGE UNIT OPERATOR Unavailable Unavailable Detor, M Keily HEAD GAUGE UNIT OPERATOR Unavailable Unavailable Detor, M Keily HEAD GAUGE UNIT OPERATOR Unavailable Unavailable Detor, M Keily HEAD GAUGE UNIT OPERATOR Unavailable Unavailable Detor, M Keily HEAD GAUGE UNIT OPERATOR Unavailable Unavailable Detor, M Keily HEAD GAUGE UNIT OPERATOR Unavailable Unavailable Detor, M Keily HEAD GAUGE UNIT OPERATOR Unavailable Unavailable Detor, M Keily HEAD GAUGE UNIT OPERATOR Unavailable Unavailable Detor, M Keily HEAD GAUGE UNIT OPERATOR Unavailable Unavailable Detor, M Keily HEAD GAUGE UNIT OPERATOR Unavailable Unavailable Detor, M Keily HEAD GAUGE UNIT OPERATOR Unavailable Unavailable Detor, M Keily HEAD GAUGE UNIT OPERATOR Unavailable Unavailable Detor, M Keily HEAD GAUGE UNIT OPERATOR Unavailable Unavailable Detor, M Keily HEAD GAUGE UNIT OPERATOR Unavailable Unavailable Detor, M Keily HEAD GAUGE UNIT OPERATOR Unavailable Unavailable Detor, M Keily HEAD GAUGE UNIT OPERATOR Unavailable Unavailable Detor, M Keily HEAD GAUGE UNIT OPERATOR Unavailable Unavailable Simeon CORRIGAN Unavailable Unavailable Tollhouse, V JENNIFER PA-C Unavailable Unavailable [place]ollhouse, V JENNIFER PA-C Unavailable Unavailable [place]ollhouse, V JENNIFER PA-C Unavailable Unavailable Laurence, V JENNIFER PA-C Unavailable Unavailable [place]oll[place], V JENNIFER PA-C Unavailable Unavailable Laurence, V JENNIFER PA-C Unavailable Unavailable [place], V JENNIFER PA-C Unavailable Unavailable [place], V JENNIFER PA-C Unavailable Unavailable Laurence, V JENNIFER PA-C Unavailable Unavailable [place], V JENNIFER PA-C Unavailable Unavailable [place], V JENNIFER PA-C Unavailable Unavailable Laurence, V JENNIFER PA-C Unavailable Unavailable [place], V JENNIFER PA-C Unavailable Unavailable [place]ollhouse, V JENNIFER PA-C Unavailable Unavailable Godwin, N Azalea COMMUTATOR INSPECTOR Unavailable Unavailable [place], N Azalea COMMUTATOR INSPECTOR Unavailable Unavailable [place], N Azalea COMMUTATOR INSPECTOR Unavailable Unavailable Godwin, N Azalea COMMUTATOR INSPECTOR Unavailable Unavailable [place], N Azalea COMMUTATOR INSPECTOR Unavailable Unavailable [place], N Azalea COMMUTATOR INSPECTOR Unavailable Unavailable Godwin, N Azalea COMMUTATOR INSPECTOR Unavailable Unavailable [place], N Azalea COMMUTATOR INSPECTOR Unavailable Unavailable [place], N Azalea COMMUTATOR INSPECTOR Unavailable Unavailable Godwin, N Azalea COMMUTATOR INSPECTOR Unavailable Unavailable Godwin, N Azalea COMMUTATOR INSPECTOR Unavailable Unavailable [place], N Azalea COMMUTATOR INSPECTOR Unavailable Unavailable Godwin, N Azalea COMMUTATOR INSPECTOR Unavailable Unavailable [place], N Azalea COMMUTATOR INSPECTOR Unavailable Unavailable [place], N Azalea COMMUTATOR INSPECTOR Unavailable Unavailable Godwin, N [place]ale[place] COMMUTATOR INSPECTOR Unavailable Unavailable Godwin, N [place]alea COMMUTATOR INSPECTOR Unavailable Unavailable Godwin, N Azalea COMMUTATOR INSPECTOR Unavailable Unavailable [place], N Azalea COMMUTATOR INSPECTOR Unavailable Unavailable Godwin, N Azalea COMMUTATOR INSPECTOR Unavailable Unavailable [place], N [place]ale[place] COMMUTATOR INSPECTOR Unavailable Unavailable Godwin, N Azalea COMMUTATOR INSPECTOR Unavailable Unavailable Godwin, N Azalea COMMUTATOR INSPECTOR Unavailable Unavailable Godwin, N Azalea COMMUTATOR INSPECTOR Unavailable Unavailable Godwin, N Azalea COMMUTATOR INSPECTOR Unavailable Unavailable Godwin, N [place]ale[place] COMMUTATOR INSPECTOR Unavailable Unavailable Godwin, N Azalea COMMUTATOR INSPECTOR Unavailable Unavailable [place], N Azalea COMMUTATOR INSPECTOR Unavailable Unavailable [place], N Azalea COMMUTATOR INSPECTOR Unavailable Unavailable Godwin, N Azalea COMMUTATOR INSPECTOR Unavailable Unavailable [place], N Azalea COMMUTATOR INSPECTOR Unavailable Unavailable [place], N Azalea COMMUTATOR INSPECTOR Unavailable Unavailable [place], N Azalea COMMUTATOR INSPECTOR Unavailable Unavailable Cooper, L Virginia RPA Unavailable [...] Unavailable Cooper, L Virginia RPA Unavailable Unavailable Palmerton, Chandler Unavailable Unavailable Palmerton, Chandler Unavailable Unavailable Palmerton, Chandler Unavailable Unavailable Palmerton, Chandler Unavailable Unavailable Palmerton, Chandler Unavailable Unavailable Palmerton, Chandler Unavailable Unavailable Palmerton, Chandler Unavailable Unavailable Palmerton, Chandler Unavailable Unavailable Palmerton, Chandler Unavailable Unavailable Palmerton, Chandler Unavailable Unavailable [place]erton, Chandler Unavailable Unavailable [place]erton, Chandler Unavailable Unavailable Palmerton, Chandler Unavailable Unavailable Palmerton, Chandler Unavailable Unavailable Palmerton, Chandler Unavailable Unavailable [place]erton, Chandler Unavailable Unavailable Palmerton, Chandler Unavailable Unavailable Palmerton, Chandler Unavailable Unavailable Palmerton, Chanlder Unavailable Unavailable Palmerton, Chandler Unavailable Unavailable Palmerton, Chandler Unavailable Unavailable Palmerton, Chandler Unavailable Unavailable Palmerton, Chandler Unavailable Unavailable Palmerton, Chandler Unavailable Unavailable Palmerton, Chandler Unavailable Unavailable Palmerton, Chandler Unavailable Unavailable Palmerton, Chandler Unavailable Unavailable Palmerton, Chandler Unavailable Unavailable Palmerton, Chandler Unavailable Unavailable Palmerton, Chandler Unavailable Unavailable Palmerton, Chandler Unavailable Unavailable Palmerton, Chandler Unavailable Unavailable Palmerton, Chandler Unavailable Unavailable Palmerton, Chandler Unavailable Unavailable Palmerton, Chandler Unavailable Unavailable Palmerton, Chandler Unavailable Unavailable Palmerton, Chandler Unavailable Unavailable Palmerton, Chandler Unavailable Unavailable Palmerton, Chandler Unavailable Unavailable Palmerton, Chandler Unavailable Unavailable Palmerton, Chandler Unavailable Unavailable Palmerton, Chandler Unavailable Unavailable Palmerton, Chandler Unavailable Unavailable Palmerton, Chandler Unavailable Unavailable Palmerton, Chandler Unavailable Unavailable Palmerton, Chandler Unavailable Unavailable Palmerton, Chandler Unavailable Unavailable Palmerton, Chandler Unavailable Unavailable Palmerton, Chandler Unavailable Unavailable Palmerton, Chandler Unavailable Unavailable Palmerton, Chandler Unavailable Unavailable Palmerton, Chandler Unavailable Unavailable Palmerton, Chandler Unavailable Unavailable Palmerton, Chandler Unavailable Unavailable Palmerton, Chandler Unavailable Unavailable Palmerton, Chandler Unavailable Unavailable Palmerton, Chandler Unavailable Unavailable Palmerton, Chandler Unavailable Unavailable Palmerton, Chandler Unavailable Unavailable Palmerton, Chandler Unavailable Unavailable Palmerton, Chandler Unavailable Unavailable WetterhahnMauricio MD Unavailable Unavailable [...] is protected by Article 27-F of the [facility] Public Health law. If you continue you may have access to information: Regarding HIV / AIDS; Provided by facilities licensed or operated by the [facility] Office of Mental Health; or Provided by the [facility] Office for People With Developmental Disabilities. If such information is present, then the following [facility] mandated warning applies: This information has [...] law may result in a fine or senior living sentence or both. A general authorization for the release of medical or other information is NOT sufficient authorization for further disc losure. Allergies and Adverse Reactions Type Description Substance Reaction Status Data Source(s ) Propensity to adverse reactions CODEINE Codeine Rash Medium Ac tive [facility] Medium Encounters Encounter Providers Location Date Indications Data Source(s ) Outpatient Attender: JENNIFER BETH.KENNY-SJP.KENNY 10:55:35 AM EDT [facility] Outpatient Attender: JENNIFER LAMAR-SJP.KENNY 12:00:00 AM EDT [facility] Outpatient [id number] [facility] [place] [address] 06/26/2021 12:00:00 AM EDT eCW1 ([facility]) Outpatient SJP.CT-SJP.SYR 06/20/2021 01:01:19 PM EDT [facility] Unknown [address] [facility] [place] [address] 06/20/2021 12:00:00 AM EDT eCW1 ([facility]) Outpatient [address] [facility] [place] [address] 06/19/2021 12:00:00 AM EDT eCW1 ([facility]) Unknown [address] [facility] [place] [address] 05/28/2021 12:00:00 AM EDT eCW1 ([facility]) BF-BF 05/21/2021 06:14:57 PM EDT [facility] Outpatient SJP.KENNY-SJP.KENNY 05/21/2021 12:00:00 AM EDT [facility] Unknown [address] [facility] [place] [address] 05/14/2021 12:00:00 AM EDT eCW1 ([facility]) Outpatient Referrer: Toby MOJICACT-SJP.SYR 04/14 11:34:18 AM EDT [facility] Outpatient Attender: Azalea HUFFPMaria CKENNY-SJP.KENNY 021 12:00:00 AM EDT - 04/28/2021 03:49:03 PM EDT [facility] Outpatient SJRAOUL-SJErin.KENNY 04/28/2021 12:00:00 AM EDT [facility] Inpatient Admitter: Chandler CorriganReferrer: ROWAN Padilla MD ES1-SJ.ANES 04/17/2021 07:21:51 AM EDT [facility] Inpatient Attender: Chandler CorriganAdmitter: Chandler Corrigan ES1 -D4CVS 04/17/2021 05:18:00 AM EDT - 04/23/2021 05:58:00 PM EDT [facility] Patient discharged. Outpatient Attender: Chandler CorriganReferrer: Chandler Corrigan ES1 -SJ.PL 04/14/2021 09:23:36 AM EDT - 04/14/2021 11:59:00 PM EDT [facility] Patient discharged. Outpatient Attender: Chandler CorriganReferrer: Chandler Corrigan MOB -MOB.PAT 04/14/2021 08:39:44 AM EDT - 04/14/2021 10:06:57 AM EDT [facility] Outpatient Referrer: FAITH HARRIS-MOB.PAT 04/14/2021 08:25:17 AM EDT - 04/14/2021 08:25:24 AM EDT [facility] Outpatient Referrer: Keily Block HEAD GAUGE UNIT OPERATOR 04/08/2021 08:33:19 A M EDT [facility] Outpatient Attender: Chandler KIMBALL.CSA 12:00:00 AM EDT - 04/07/2021 03:20:13 PM EDT [facility] Unknown [id number] [facility] [place] [address] 03/04/2021 12:00:00 AM EDT eCW1 ([facility]) Outpatient WILLARD-SJP.KENNY 02/07/2021 11:51:01 AM EDT [facility] Outpatient Attender: JENNIFER LAMAR-SJP.KENNY 01:22:41 PM EDT - 02/06/2021 02:53:39 PM EDT [facility] Outpatient Attender: Virginia Shi/Edis/Kings/Robel fernandez 01/15/2021 01:00:00 PM EDT [facility] ([facility]) Outpatient Attender: JENNIFER BETH.KENNY-SJP.KENNY 11/2020 01:57:32 PM EDT - 01/13/2021 03:27:27 PM EDT [facility] Outpatient Attender: JENNIFER Kenferrer: Mercedes Cuellar MD SJP.KENNY-SJP.KENNY 01/06/2021 02:29:51 PM EDT - 01/06/2021 03:53:36 PM EDT [facility] Outpatient Attender: SUSAN HOUSE MDAdm itter: SUSAN HOUSE MDReferrer: Toby Parish MD ES1-SJ.CVAU 12/10/2020 09:18:00 AM EDT - 12/10/2020 04:58:00 PM EDT [facility] Patient discharged. Outpatient Attender: Toby Parish MD SJP.KENNY-SJP.KENNY 11/12 12:00:00 AM EDT - 12/09/2020 11:50:14 AM EDT [facility] Outpatient [id number] [facility] [place] [address] 12/06/2020 12:00:00 AM EDT eCW1 ([facility]) Outpatient Attender: Virginia Shi/Edis/Kings/Robel fernandez 11/26/2020 01:45:00 PM EDT [facility] ([facility] Unknown [address] [facility] [place] [address] 11/08/2020 12:00:00 AM EST eCW1 ([facility]) Unknown [address] [facility] [place] [address] 11/05/2020 12:00:00 AM EST eCW1 ([facility]) Outpatient [address] [facility] [address] 11/05/2020 12:00:00 AM EST eCW1 ([facility]) Unknown [address] [facility] [place] [address] 11/04/2020 12:00:00 AM EST eCW1 ([facility]) Unknown [address] [facility] [place] [address] 06/25/2020 12:00:00 AM EDT eCW1 ([facility]) Immunizations Vaccine Date Status Description Data Source(s) 207 12/18/2020 12:00:00 AM EDT completed <td I D="[id number]">Covid-19 (Moderna)</td><td>12/18/2020, 11/12/2020</td><td></td> [facility] COVID-19 VACCINE Moderna 12/18/2020 12:00:00 AM EDT completed NYSIIS Vaccine Series Complete: YESThis Data wa s Submitted to [facility] Via [facility]. 207 11/12/2020 12:00:00 AM EST completed <td I D="[id number]">Covid-19 (Moderna)</td><td>12/18/2020, 11/12/2020</td><td></td> [facility] COVID-19 VACCINE Moderna 11/12/2020 12:00:00 AM EST completed NYSIIS Vaccine Series Complete: NOThis Data was Submitted to [facility] Via [employer]. Medications Medication Brand Name Start Date Product [...] activ e oxyCODONE HCl 15 MG eCW1 ([facility]) Acetaminophen 325 MG / Hydrocodone Robinson trate 10 MG Oral Tablet HYDROcodone- Acetaminophen 10-325 MG HYDROcodone-Acetaminophen 10-325 MG 06/26/2021 12:00:0 0 AM EDT 1.0 {tablet_as_needed} active HYDROcodone-Acetaminophen 10- 325 MG eCW1 ([facility]) Oxycodone Hydrochloride 15 MG Oral Tablet oxyCODONE HC l 15 MG oxyCODONE HCl 15 MG 06/26/2021 12:00:00 AM EDT 1.0 {tablet} activ e oxyCODONE HCl 15 MG eCW1 ([facility]) Acetaminophen 325 MG / Hydrocodone Robinson trate 10 MG Oral Tablet HYDROcodone- Acetaminophen 10-325 MG HYDROcodone-Acetaminophen 10-325 MG 06/26/2021 12:00:0 0 AM EDT 1.0 {tablet_as_needed} active HYDROcodone-Acetaminophen 10- 325 MG eCW1 ([facility]) 25 mg 06/20/2021 12:00:00 AM EDT tablet 60 TAKE ONE TABLET BY MOUTH TWICE A DAY TAKE ONE TABLET BY MOUTH TWICE A DAY SOLD: 06/24/2021 [facility] Metoprolol Tartrate 25 MG Oral Tablet Metoprolol Tartrate 25 MG 06/19/2021 12:00:00 AM EDT 1.0 {tablet_with_food} active Metoprolol Tartrate 25 MG eCW1 ([facility]) Metoprolol Tartrate 25 MG Oral Tablet Metoprolol Tartrate 25 MG 06/19/2021 12:00:00 AM EDT 1.0 {tablet_with_food} active Metoprolol Tartrate 25 MG eCW1 ([facility]) Metoprolol Tartrate 25 MG Oral Tablet Metoprolol Tartrate 25 MG 06/19/2021 12:00:00 AM EDT 1.0 {tablet_with_food} active Metoprolol Tartrate 25 MG eCW1 ([facility]) 1 mg 06/13/2021 12:00:00 AM EDT [...] tablet (81 mg total) by mouth daily [facility] Daily Hoa (THERAGRAN) per tablet [id number] 04/24/2021 12:00:00 AM EDT 1 {tbl} Oral active Take 1 tablet by mouth d aily [facility] Folic Acid 1 MG Oral Tablet folic acid (FOLVITE) 1 MG tablet folic acid (FOLVITE) 1 MG tablet 04/24/2021 12:00:00 AM EDT 1 mg Oral active Take 1 tablet (1 mg total) by mouth daily [facility] Warfarin Sodium 2 MG Oral Tablet warfarin (COUMADIN) t ablet 1 mg warfarin (COUMADIN) tablet 1 mg 04/23/2021 05:00:00 PM EDT 1 mg Oral completed 1 mg, Oral, [id number], First dose on Wed04/23/21 at 1700, For 1 dose
For administration and preparation considerations, refer to Hazardous Drugs in the Workplace Policy on Intranet.
[facility] Medication administered onsite Metoprolol Tartrate 25 MG Oral Tablet me toprolol tartrate (LOPRESSOR) tablet 12.5 mg metoprolol tartrate (LOPRESSOR) tablet 12.5 mg 11:00:00 AM EDT 12.5 mg Oral active 12.5 mg, Oral, 2 times daily, First dose on Wed04/23/21 at 1100
Hold for SBP less than 100, HR less than 60
[facility] Medication administered onsite Daily Hoa (THERAGRAN) 1 tablet [id number] 04/23/2021 09:00:00 AM EDT 1 {tbl} Oral active 1 tablet, Oral, Daily, First dose on Wed04/23/21 at 0900, Post-op [facility] Medication administered onsite Folic Acid 1 MG Oral Tablet folic acid (FOLVITE) table t 1 mg folic acid (FOLVITE) tablet 1 mg 04/23/2021 09:00:00 AM EDT 1 mg Oral active 1 mg, Oral, Daily, First dose on Wed04/23/21 at 0900, Post-op [facility] Medication administered onsite Warfarin Sodium 1 MG Oral Tablet warfarin (COUMADIN) 1 MG tablet warfarin (COUMADIN) 1 MG tablet 04/23/2021 12:00:00 AM EDT 1 mg Oral active Take 1 tablet (1 mg total) by mouth daily [facility] Metoprolol Tartrate 25 MG Oral Tablet me toprolol tartrate (LOPRESSOR) 25 MG tablet metoprolol tartrate (LOPRESSOR) 25 MG tablet 04/23/2021 12:0 0:00 AM EDT 12.5 mg Oral active Take 0.5 tablets (12.5 mg total) by mouth daily [facility] ferrous gluconate 324 MG Oral Tablet ferrous gluconate (FERGON) 324 MG tablet ferrous gluconate (FERGON) 324 MG tablet 04/23/2021 12:00:00 AM EDT 324 mg Oral active Take 1 tablet (324 m g total) by mouth daily with breakfast [facility] Acetaminophen 325 MG Oral Tablet acetaminophen (TYLENO L) 325 MG tablet acetaminophen (TYLENOL) 325 MG tablet 04/23/2021 12:00:00 AM EDT 65 0 mg Oral active Take 2 tablets (650 mg total) by mouth every 4 (four) hours as needed for pain [facility] heparin (porcine) injection 5,000 Units [id number] 04/22/20 10:00:00 PM EDT 5000 U Subcutaneous active 5,000 Units , Subcutaneous, Every 8 hours (scheduled), First dose on Wed04/22/21 at 2200, Post-op
Hold for platelet count less than 90,000, INR greater than or equal to 1.7 if receiving coumadin therapy
[facility] Medication administered onsite normal saline flush 0.9 % injection 3 mL [id number] 04/22/2021 09:00:00 PM EDT 3 mL Intravenous active 3 mL , Intravenous, PROTOCOL, First dose on Wed04/22/21 at 2100, Post-op
May convert IV to a saline lock when taking in good p.o. intake (minimally 600 mL).
[facility] Medication administered onsite ferrous gluconate 324 MG Oral Tablet ferrous gluconate (FERGON) tablet 324 mg ferrous gluconate (FERGON) tablet 324 mg 04/22/2021 09:00:00 PM EDT 324 mg Oral active 324 mg, Oral, 2 times daily, First dose on Wed04/22/21 at 2100, Post-op
Start when taking good p.o. intake.
[facility] Medication administered onsite Docusate Sodium 100 MG Oral Capsule docusate sodium (C OLACE) capsule 100 mg docusate sodium (COLACE) capsule 100 mg 04/22/2021 09:00:00 PM EDT 100 mg Oral active 100 mg, Oral, 2 times daily, First dose on Wed04/22/21 at 2100, Post-op
hold for loose stools
[facility] Medication administered onsite Magnesium Chloride 0.52271 MEQ/ML / Pota ssium Chloride 0.0497 MEQ/ML / Sodium Acetate 0.0163 MEQ/ML / Sodium Chloride 0.0899 MEQ/ML / Sodium gluconate 5.02 MG/ML Injectable Solution [Normosol-R] electrolyte-R (NORMOSOL-R/PLASMALYTE-R) solution electrolyte-R (NORMOSOL-R/PLASMALYTE-R) solution 04/22 07:00:00 PM EDT Intravenous active at 1 00 mL/hr, Intravenous, Continuous, Starting on Wed04/22/21 at 1900, PACU & Post-op [facility] Medication administered onsite POLYETHYLENE GLYCOL 3350 142 MG/ML Oral Solution polyethylene glycol (GLYCOLAX) packet 17 g polyethylene glycol (GLYCOLAX) packet 17 g 04/22/2021 07:00:00 PM EDT 17 g Oral active 17 g, Or al, Daily, First dose on Wed04/22/21 at 1900, Post-op
Start 2nd POD and continue until result.
[facility] Medication administered onsite acetaminophen (TYLENOL) 325 MG [...] Wed04/22/21 at 1822, Post-op [Order 2 End] [facility] Medication administered onsite potassium chloride SA (K-DUR,KLOR-CON) CR tablet 10 mEq 6203 704/22/2021 06:22:27 PM EDT 10 meq Oral active 10 mEq, Oral, As needed, Serum K+ 3.9-4.1, Starting on Wed04/22/21 at 1822, Post-op
For serum creatinine (SCR) greater than 1.5
[facility] Medication administered onsite potassium chloride SA (K-DUR,KLOR-CON) CR tablet 20 mEq 6203 704/22/2021 06:22:27 PM EDT 20 meq Oral active 20 mEq, Oral, As needed, Serum K+ 3.5-3.8, Starting on Wed04/22/21 at 1822, Post-op
For serum creatinine (SCR) greater than 1.5
[facility] Medication administered onsite potassium chloride SA (K-DUR,KLOR-CON) CR tablet 20 mEq 6203 04/22/2021 06:22:27 PM EDT 20 meq Oral active 20 mEq, Oral, As needed, Serum K+ 3.9-4.1, Starting on Wed04/22/21 at 1822, Post-op
For serum creatinine (SCR) 0.8 to 1.5
[facility] Medication administered onsite ondansetron (ZOFRAN) injection 4 mg [id number] 04/22/2021 06:22:2 7 PM EDT 4 mg Intravenous active 4 mg, In travenous, Every 6 hours PRN, nausea, vomiting, Starting on Wed04/22/21 at 1822, Post-op
If no response in 15-30 minutes, give metoclopramide 10 mg IV x 1 then q6h prn N/V.
[facility] Medication administered onsite potassium chloride SA (K-DUR,KLOR-CON) CR tablet 40 mEq 6203 704/22/2021 06:22:27 PM EDT 40 meq Oral active 40 mEq, Oral, As needed, Serum K+ 3.5-3.8, Starting on Wed04/22/21 at 1822, Post-op
For serum creatinine (SCR) 0.8 to 1.5
[facility] Medication administered onsite 10 ML Atropine Sulfate [...] or 0.04 mg/kg. Max of 6 doses
[facility] Medication administered onsite magnesium sulfate 1 g in dextrose 5% infusion (premix) [id number] 04/22/2021 06:22:26 PM EDT 1 g Intravenous active 1 g, Intravenous, at 200 mL/hr, As needed, serum Mg 1.9-2.1, Starting on Wed04/22/21 at 1822, Post-op
Give 1 grams magnesium sulfate IV x 1 run over 1 hour For serum creatinine (SCR) greater than 1.5
[facility] Medication administered onsite 50 ML Magnesium Sulfate [...] For serum creatinine (SCR) greater than 1.5
[facility] Medication administered onsite 50 ML Magnesium Sulfate [...] For serum creatinine (SCR) 0.8 to 1.5
[facility] Medication administered onsite 50 ML Magnesium Sulfate [...] For serum creatinine (SCR) 0.8 to 1.5
[facility] Medication administered onsite Bisacodyl 10 MG Rectal Suppository bisacodyl (DULCOLAX ) suppository 10 mg bisacodyl (DULCOLAX) suppository 10 mg 04/22/2021 06:22:26 PM EDT 10 mg Rectal active 10 mg, Rectal, Daily PRN, constipation, Starting on Wed04/22/21 at 1822, Post-op
If polyethylene glycol not effective.
[facility] Medication administered onsite Nitroglycerin 0.4 MG Sublingual Tablet n itroglycerin (NITROSTAT) SL tablet 0.4 mg nitroglycerin (NITROSTAT) SL tablet 0.4 mg 04/22/2021 06:22:26 P M EDT 0.4 mg Sublingual active 0.4 mg, S ublingual, Every 5 min PRN, chest pain, Starting on Wed04/22/21 at 1822, Post-op
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
[facility] Medication administered onsite Aluminum Hydroxide 64 MG/ML Oral Suspens ion aluminum hydroxide (ALTERNAGEL) suspension 15 mL aluminum hydroxide (ALTERNAGEL) suspension 15 mL 04/22 06:22:26 PM EDT 15 mL Oral active 15 mL, Oral, Every 4 hours PRN, for indigestion/ gas, Starting on Wed04/22/21 at 1822, Post-op [facility] Medication administered onsite Albuterol 0.83 MG/ML Inhalant Solution a lbuterol (PROVENTIL) nebulizer solution 2.5 mg albuterol (PROVENTIL) nebulizer solution 2.5 mg 2020 06:22:25 PM EDT 2.5 mg active 2.5 mg, Nebulization, RT every 2 hours as needed, wheezing, shortness of breath, Starting on Wed04/22/21 at 1822, Post-op [facility] Medication administered onsite warfarin (COUMADIN) tablet 3 mg 04/19/2021 05:00:00 PM EDT 3 mg Oral completed 3 mg, Oral, [id number], F irst dose on Wed04/19/21 at 1700, For 1 dose
For administration and preparation considerations, refer to Hazardous Drugs in the Workplace Policy on Intranet.
[facility] Medication administered onsite gabapentin 800 MG Oral Tablet gabapentin (NEURONTIN) t ablet 400 mg gabapentin (NEURONTIN) tablet 400 mg 04/19/2021 03:00:00 PM EDT 400 mg Oral active 400 mg, Oral, 3 times daily, First dose (after last modification) on Wed04/19/21 at 1500 [facility] Medication administered onsite norepinephrine bitartrate (LEVOPHED) 4 m g in sodium chloride (NS) 0.9 % 250 mL infusion 04/19/2021 01:00:00 PM EDT ug/min Intravenous aborted 0-4 mcg/min (0-15 mL/hr), Intravenous, Continuous, Starting on Wed04/19/21 at 1300, Until Wed04/22/21 at 1822, at 0-15 mL/hr [facility] Medication administered onsite Buprenorphine 8 MG / [...] the same time as other po medications
[facility] Medication administered onsite albumin human 5 % bottle 12.5 g [id number] 04/19/2021 12:00:00 PM EDT 12.5 g Intravenous completed Systolic Hypotension 12. 5 g, Intravenous, Once, Indications: Systolic Hypotension, On 04/19/21 at 1200, For 1 dose [facility] Systolic Hypotension Medication administered onsite albumin human 5 % bottle 12.5 g [id number] 04/19/2021 11:00:00 AM EDT 12.5 g Intravenous completed Hypotension 12.5 g, Intr avenous, Once, Indications: Hypotension, On 04/19/21 at 1100, For 1 dose [facility] Hypotension Medication administered onsite POLYETHYLENE GLYCOL 3350 142 MG/ML Oral Solution polyethylene glycol (GLYCOLAX) packet 17 g polyethylene glycol (GLYCOLAX) packet 17 g 04/19/2021 09:00:00 AM EDT 17 g Oral aborted 17 g, Or al, Daily, First dose on 04/19/21 at 0900, PACU & Post-op
Starting 2nd POD, give every day until result
[facility] Medication administered onsite Amiodarone hydrochloride 200 MG Oral Tablet amiodarone (PACERONE) tablet 400 mg amiodarone (PACERONE) tablet 400 mg 04/19/2021 09:00:00 AM EDT 400 mg Oral aborted 400 mg, Oral, Daily, First d ose on 04/19/21 at 0900 [facility] Medication administered onsite Amlodipine 10 MG Oral Tablet amLODIPine (NORVASC) tabl et 10 mg amLODIPine (NORVASC) tablet 10 mg 04/19/2021 09:00:00 AM EDT 10 mg Oral aborted 10 mg, Oral, Daily, First dose on 04/19/21 at 0900 [facility] Medication administered onsite ferrous gluconate 324 MG Oral Tablet ferrous gluconate (FERGON) tablet 324 mg ferrous gluconate (FERGON) tablet 324 mg 04/19/2021 07:00:00 AM EDT 324 mg Oral aborted 324 mg, Oral, 2 times daily before meals, First dose on Wed04/19/21 at 0700, PACU & Post-op
Start POD #2
[facility] Medication administered onsite Amlodipine 10 MG Oral Tablet amLODIPine (NORVASC) tabl et 10 mg amLODIPine (NORVASC) tablet 10 mg 04/19/2021 12:00:00 AM EDT 10 mg Oral completed 10 mg, Oral, Once, On Wed04/19/21 at 0000, For 1 dose [facility] Medication administered onsite Lisinopril 10 MG Oral Tablet lisinopril (PRINIVIL,ZEST RIL) tablet 5 mg lisinopril (PRINIVIL,ZESTRIL) tablet 5 mg 04/18/2021 09:00:00 PM EDT 5 mg Oral completed 5 mg, Oral, Once, On Wed04/18/21 at 2100, For 1 dose [facility] Medication administered onsite Lisinopril 10 MG Oral Tablet lisinopril (PRINIVIL,ZEST RIL) tablet 5 mg lisinopril (PRINIVIL,ZESTRIL) tablet 5 mg 04/18/2021 07:00:00 PM EDT 5 mg Oral aborted 5 mg, Oral, Da lane, First dose on Wed04/18/21 at 1900
Hold for SBP <105
[facility] Medication administered onsite Warfarin Sodium 2 MG Oral Tablet warfarin (COUMADIN) t ablet 2 mg warfarin (COUMADIN) tablet 2 mg 04/18/2021 05:00:00 PM EDT 2 mg Oral completed 2 mg, Oral, WAR17, First dose on Wed04/18/21 at 1700, For 1 dose
For administration and preparation considerations, refer to Hazardous Drugs in the Workplace Policy on Intranet.
[facility] Medication administered onsite albumin human 5 % bottle 12.5 g [id number] 04/18/2021 02:00:00 PM EDT 12.5 g Intravenous completed 12.5 g, Intra venous, Once, Indications: low urine output, On Wed04/18/21 at 1400, For 1 dose [facility] Medication administered onsite 168 HR Buprenorphine 0.01 MG/HR Transder mal Patch buprenorphine (BUTRANS) 10 MCG/HR 2 patch buprenorphine (BUTRANS) 10 MCG/HR 2 patch 04/18/2021 0 9:00:00 AM EDT 2 {patch} Topical active 2 patc h, Topical, Administer over 7 Days, Every 7 days, First dose on Wed04/18/21 at 0900, For 7 days
Apply 2 patches (10mcg/hr per patch) to make dose of 20mcg/hr
[facility] Medication administered onsite Ascorbic Acid 500 MG Oral Tablet ascorbic acid (VITAMI N C) tablet 500 mg ascorbic acid (VITAMIN C) tablet 500 mg 04/18/2021 09:00:00 AM EDT 500 mg Oral active 500 mg, Oral, Daily, First dose on Wed04/18/21 at 0900
Give PO/OG. Start first POD.
[facility] Medication administered onsite Docusate Sodium 100 MG Oral Capsule docusate sodium (C OLACE) capsule 100 mg docusate sodium (COLACE) capsule 100 mg 04/18/2021 09:00:00 AM EDT 100 mg Oral aborted 100 mg, Oral, Daily, First dose on Wed04/18/21 at 0900, PACU & Post-op
Give PO/OG. Start first POD
[facility] Medication administered onsite Folic Acid 1 MG Oral Tablet folic acid (FOLVITE) table t 1 mg folic acid (FOLVITE) tablet 1 mg 04/18/2021 09:00:00 AM EDT 1 mg Oral aborted 1 mg, Oral, Daily, First dose on Wed04/18/21 at 0900, PACU & Post-op
Give PO/OG. Start first POD
[facility] Medication administered onsite normal saline flush 0.9 % injection 3 mL [id number] 04/18/2021 09:00:00 AM EDT 3 mL Intravenous aborted 3 mL , Intravenous, PROTOCOL, First dose on Wed04/18/21 at 0900, PACU & Post-op
May convert to saline lock with minimally 600 ml PO intake on first POD; prior to transfer
[facility] Medication administered onsite Aspirin 81 MG Delayed Release Oral Tablet aspirin EC t ablet 81 mg aspirin EC tablet 81 mg 04/18/2021 09:00:00 AM EDT 81 mg Oral activ e 81 mg, Oral, Daily, First dose on Wed04/18/21 at 0900
Hold for platelet count less than 90,000. If OG tube in place, give non-enteric coated aspirin.
[facility] Medication administered onsite Famotidine 20 MG Oral Tablet famotidine (PEPCID) table t 20 mg famotidine (PEPCID) tablet 20 mg 04/18/2021 09:00:00 AM EDT 20 mg Oral active 20 mg, Oral, Daily, First dose (after last reorder) on Wed04/18/21 at 0900
Start after extubation Dose adjusted per pharmacy renal dosing protocol
[facility] Medication administered onsite heparin (porcine) injection 5,000 Units [id number] 04/18/20 06:00:00 AM EDT 5000 U Subcutaneous aborted 5,000 Units , Subcutaneous, Every 8 hours (scheduled), First dose on Wed04/18/21 at 0600, PACU & Post-op
Start first POD. Hold for platelet count less than 90,000, INR greater than or equal to 1.7 if receiving coumadin therapy.
[facility] Medication administered onsite Amitriptyline Hydrochloride 25 MG Oral T ablet amitriptyline (ELAVIL) tablet 100 mg amitriptyline (ELAVIL) tablet 100 mg 04/17/2021 09:00:00 PM EDT 100 mg Oral active 100 mg, Oral, Nightl y, First dose on Gerri 04/17/21 at 2100 [facility] Medication administered onsite atorvastatin 80 MG Oral Tablet atorvastatin (LIPITOR) tablet 80 mg atorvastatin (LIPITOR) tablet 80 mg 04/17/2021 09:00:00 PM EDT 80 mg Oral active 80 mg, Oral, Nightly, First dose on Wed04/17/21 at 2100 [facility] Medication administered onsite Mupirocin 0.02 MG/MG Topical Ointment mupirocin (BACTR OBAN) 2 % ointment mupirocin (BACTROBAN) 2 % ointment 04/17/2021 09:00:00 PM EDT Nasal completed Nasal, 2 times daily , 7 doses, First dose on Wed04/17/21 at 2100, Last dose on Wed04/20/21 at 2100 [facility] Medication administered onsite 60 ACTUAT mometasone furoate 0.2 MG/ACTU AT Dry Powder Inhaler mometasone furoate (ASMANEX) DPI 220 mcg/inh inhaler mometasone furoate (ASMANEX) DPI 220 mcg /inh inhaler 04/17/2021 08:00:00 PM EDT 1 {puff} Inhalation acti ve 1 puff, Inhalation, 2 times daily, First dose on Wed04/17/21 at 2000 [facility] Medication administered onsite Dexmedetomidine HCl 400 mcg in sodium chloride (NS) 0.9 % 10 0 mL infusion 04/17/2021 07:00:00 PM EDT ug/kg/h Intravenous aborted Post-op, 0.2- 0.7 mcg/kg/hr 64.9 kg (3.245-11.3575 mL/hr, rounded to 3.2-11.4 mL/hr), Intravenous, Continuous, Starting on Wed04/17/21 at 1900, Until Wed04/18/21 at 0539, at 3.2- 11.4 mL/hr [facility] Medication administered onsite ezetimibe 10 MG Oral Tablet ezetimibe (ZETIA) tablet 1 0 mg ezetimibe (ZETIA) tablet 10 mg 04/17/2021 06:00:00 PM EDT 10 mg Oral activ e 10 mg, Oral, Daily, First dose on Wed04/17/21 at 1800 [facility] Medication administered onsite Cefazolin 1000 MG Injection [...] minutes. Use within 1 hour of reconstitution
[facility] Medication administered onsite gabapentin 800 MG Oral Tablet gabapentin (NEURONTIN) t ablet 800 mg gabapentin (NEURONTIN) tablet 800 mg 04/17/2021 03:00:00 PM EDT 800 mg Oral aborted 800 mg, Oral, 3 times daily, First dose on Gerri 04/17/21 at 1500 [facility] Medication administered onsite amiodarone HCl 900 mg in dextrose 5 % 500 mL infusion 04/17/2021 02:00:00 PM EDT mg/min Intravenous aborted 0.5- 1 mg/min (16.6667-33.3333 mL/hr, rounded to 16.7-33.3 mL/hr), Intravenous, Continuous, Starting on Gerri 04/17/21 at 1400, Until 04/19/21 at 0624, at 16.7-33.3 mL/hr [facility] Medication administered onsite 3 ML Amiodarone hydrochloride 50 MG/ML I njection amiodarone (CORDARONE) injection SOLN 150 mg amiodarone (CORDARONE) injection SOLN 150 mg 02:00:00 PM EDT 150 mg Intravenous completed 150 mg, Intravenous, Once, On Gerri 04/17/21 at 1400, For 1 dose
Administer through 0.22 micron filter, mix in 100 mL D5W and infuse over 10 minutes
[facility] Medication administered onsite Ipratropium [place] 0.2 MG/ML Inhalant S olution ipratropium (ATROVENT) 0.02 % nebulizer solution 0.5 mg ipratropium (ATROVENT) 0.02 % nebulizer solution 0.5 mg 04/17/2021 12:00:00 PM EDT 0.5 mg active 0.5 mg, Nebulization, 4 times daily, First dose on Gerri 04/17/21 at 1200 [facility] Medication administered onsite Vitamin B 12 1 MG/ML Injectable Solution cyanocobalami n injection 1,000 mcg cyanocobalamin injection 1,000 mcg 04/17/2021 12:00:00 PM EDT 10 00 ug Subcutaneous completed 1,000 mcg, S ubcutaneous, Once, On Gerri 04/17/21 at 1200, For 1 dose, PACU & Post-op
DEEP SUBCUTANEOUS
[facility] Medication administered onsite Famotidine (PEPCID) injection 20 mg [id number] 04/17/2021 12:00:0 0 PM EDT 20 mg Intravenous aborted 20 mg, I ntravenous, Every 12 hours (scheduled), First dose on Gerri 04/17/21 at 1200, PACU & Post-op
D/C after extubation
[facility] Medication administered onsite niCARdipine (CARDENE) 50 mg/250 ml 0.9% NaCl infusion 04/17/2021 12:00:00 PM EDT mg/h Intravenous aborted PACU & Post-op, 0-15 mg/hr (0-75 mL/hr), Intravenous, Continuous, Starting on Gerri 04/17/21 at 1200, Until 04/19/21 at 1119, at 0-75 mL/hr [facility] Medication administered onsite Magnesium Chloride 0.22759 MEQ/ML / Pota ssium Chloride 0.0497 MEQ/ML [...] intake is 2 liters in 24 hours
[facility] Medication administered onsite propofol (DIPRIVAN) infusion 10 mg/mL [id number] 04/17/2021 12:00 :00 PM EDT ug/kg/min Intravenous [...] OFF 2 HOURS AFTER ADMISSION TO CVICU
[facility] Medication administered onsite Dexmedetomidine HCl 400 mcg in sodium chloride (NS) 0.9 % 10 0 mL infusion 04/17/2021 12:00:00 PM EDT ug/kg/h Intravenous complete d Post-op, 0.2-0.7 mcg/kg/hr 64.9 kg (3.245-11.3575 mL/hr, rounded to 3.2-11.4 mL/hr), Intravenous, Continuous, Starting on Gerri 04/17/21 at 1200, Until Gerri 04/17/21 at 1544, at 3.2- 11.4 mL/hr [facility] Medication administered onsite ondansetron (ZOFRAN) injection 4 mg [id number] 04/17/2021 11:12:1 7 AM EDT 4 mg Intravenous aborted 4 mg, In travenous, Every 6 hours PRN, nausea, vomiting, Starting on Gerri 04/17/21 at 1112, PACU & Post-op [facility] Medication administered onsite potassium chloride 20 mEq in 50 mL IVPB (CRITICAL CARE/PCU O NLY) [id number] 04/17/2021 11:12:17 AM EDT 20 meq Intravenous [...] over 1 hour through a central line
[facility] Medication administered onsite Patient on Coumadin during [...] Heart Valve
Target INR: 2 to 3 [facility] Medication administered onsite magnesium sulfate 1 g in dextrose 5% infusion (premix) 24575 -[id number] 04/17/2021 11:12:16 AM EDT 1 g Intravenous aborted 1 g, Intravenous, Administer over 30 Minutes
As needed, for serum Mg+ 1.9 to 2.1, Starting on Gerri 04/17/21 at 1112, PACU & Post-op
Run over 30 minutes through a central line
[facility] Medication administered onsite 2 ML Midazolam 1 MG/ML Injection midazolam (VERSED) in jection 1 mg midazolam (VERSED) injection 1 mg 04/17/2021 11:12:16 AM EDT 1 mg Intraveno us aborted 1 mg, Intravenous, E very 30 min PRN, anxiety, sedation, Starting on Gerri 04/17/21 at 1112, For 7 days, PACU & Post-op
Target RASS -2 to +1 DISCONTINUE AFTER EXTUBATION
[facility] Medication administered onsite HYDROmorphone (DILAUDID) injection 0.5 mg [id number] 04/17/2021 11:12:16 AM EDT 0.5 mg Intravenous aborted 0.5 mg, Intravenous, Every 5 min PRN, severe pain (7-10), Starting on Gerri 04/17/21 at 1112, For 7 days
Indicated for patients less than 75 years of age and not frail patients. FOR EXTUBATED PATIENTS ONLY. DISCONTINUE 6 HOURS POST EXTUBATION. Maximum dose 2 mg.
[facility] Medication administered onsite fentaNYL Citrate (PF) (SUBLIMAZE) injection 25 mcg [id number] 04/17/2021 11:12:15 AM EDT 25 ug Intravenous aborted 25 mcg, Intravenous, Every 10 min PRN, moderate pain (4-6), Starting on Gerri 04/17/21 at 1112, For 7 days, PACU & Post-op
Maximum 10 doses in a 24-hour period. DISCONTINUE 6 HOURS POST EXTUBATION
[facility] Medication administered onsite HYDROmorphone (DILAUDID) injection 0.5 mg [id number] 04/17/2021 11:12:15 AM EDT 0.5 mg Intravenous aborted 0.5 mg, Intravenous, Every 10 min PRN, severe pain (7-10), Starting on Gerri 04/17/21 at 1112, For 7 days, PACU & Post- op
Indicated for patients less than 75 years of age and not frail patients. FOR INTUBATED PATIENTS ONLY. DISCONTINUE POST EXTUBATION. Maximum dose 3 mg.
[facility] Medication administered onsite Acetaminophen 325 MG Oral [...] mg from all sources in 24 hours."
[facility] Medication administered onsite Metoprolol Tartrate 25 MG Oral Tablet me toprolol tartrate (LOPRESSOR) tablet 12.5 mg metoprolol tartrate (LOPRESSOR) tablet 12.5 mg 021 09:00:00 AM EDT 12.5 mg Oral aborted 12.5 mg, Oral, 2 times daily, First dose on Gerri 04/17/21 at 0900, Pre-op
Hold for HR < 60, or SBP <100
[facility] Medication administered onsite BUPIVACAINE 0.5% (Q-BALL) 330 mL drug or medication 04/17/2021 0 8:00:00 AM EDT 330 mL Topical active 330 mL, Topical, Continuous, Starting on Gerri 04/17/21 at 0800, Intra-op
Please indicate single or double lumen: Single Lumen [facility] Medication administered onsite heparin (porcine) injection 5,000 Units [id number] 04/17/20 21 06:00:00 AM EDT 5000 U Subcutaneous completed 5,000 Uni ts, Subcutaneous, Once, On Gerri 04/17/21 at 0600, For 1 dose, Pre-op
Once on admission. Hold for platelets < 90,000.
[facility] Medication administered onsite 2 % 04/16/2021 12:00:00 [...] tablet (10 mg total) by mouth daily [facility] Furosemide 20 MG Oral Tablet furosemide (LASIX) 20 MG tablet furosemide (LASIX) 20 MG tablet 02/06/2021 12:00:00 AM EDT 20 mg Oral abort ed Take 1 tablet (20 mg total) by mouth daily [facility] 24 HR Nicotine 0.292 MG/HR Transdermal Patch nicotine (NICODERM CQ) 7 MG/24HR nicotine (NICODERM CQ) 7 MG/24HR 02/06/2021 12:00:00 AM EDT 1 {p atch} Transdermal aborted Place 1 patch on t he skin daily [facility] 20 mcg/hour 01/14/2021 12:00:00 AM EDT patch [...] (5 mg total) by mo uth daily [facility] 100 mg 12/26/2020 12:00:00 AM EDT tablet [...] DAILY DOSE = 4 STRIPS SOLD: 12/17/2020 [facility] iopamidol (ISOVUE-370) 76 % [id number] 12/10/2020 01:37:13 PM EDT active As needed, Starting 12/10/20 at 1337, Intra-Procedu re [facility] Medication administered onsite NITROGLYCERIN 0.4 MG/ML IV SOLN [id number] 12/10/2020 12:43:30 PM EDT active As needed, Starting e 12/10 at 1243, Intra-Procedure [facility] Medication administered onsite 1 ML heparin sodium, porcine 1000 UNT/ML Injection hep shanti (porcine) injection heparin (porcine) injection 12/10/2020 12:33:21 PM EDT active As needed, Starting 12/10/20 at 1233, Intra-Procedure [facility] Medication administered onsite lidocaine 1 % injection [id number] 12/10/2020 12:29:18 PM EDT active As needed, Starting e 12/10/20 at 1229, Intra-Procedure [facility] Medication administered onsite 2 ML Midazolam 1 MG/ML Injection midazolam (VERSED) in jection midazolam (VERSED) injection 12/10/2020 12:28:40 PM EDT active As needed, Starting 12/10/20 at 1228, Intra-Procedure [facility] Medication administered onsite fentaNYL Citrate (PF) (SUBLIMAZE) injection [id number] 12/10/2020 12:28:26 PM EDT active As neede d, Starting Wed12/10/20 at 1228, Intra-Procedure [facility] Medication administered onsite sodium chloride 0.9% (NS) infusion [id number] 12/10/2020 10:00:00 AM EDT 100 mL/h Intravenous active at 100 m L/hr, 100 mL/hr, Intravenous, Continuous, Starting Wed12/10/20 at 1000, Pre-op [facility] Medication administered onsite normal saline flush 0.9 % injection 3 mL [id number] 12/10/2020 10:00:00 AM EDT 3 mL Intravenous active 3 mL , Intravenous, Every 8 hours (scheduled), First dose on Wed12/10/20 at 1000, Pre-op
Rapid push positive pressure flushing shall be performed with a 10 cc normal saline syringe to check the PATENCY of a PIV site prior to any infusion therapy initiation unless resistance is met.
[facility] Medication administered onsite 40 mg 12/10/2020 12:00:00 AM EDT tablet 30 TAKE ONE TABLET BY MOUTH ONCE DAILY TAKE ONE TABLET BY MOUTH ONCE DAILY SOLD: 12/14/2020 [employer] Aspirin 81 MG Delayed Release Oral Tablet aspirin EC 8 1 MG EC tablet aspirin EC 81 MG EC tablet 12/09/2020 12:00:00 AM EDT 81 mg Oral ab orted Take 1 tablet (81 mg total) by mouth daily [facility] Furosemide 40 MG Oral Tablet furosemide (LASIX) 40 MG tablet furosemide (LASIX) 40 MG tablet 12/09/2020 12:00:00 AM EDT 40 mg Oral activ e Take 1 tablet (40 mg total) by mouth daily [facility] 100 mg 12/07/2020 12:00:00 AM EDT tablet [...] activ e Atorvastatin Calcium 80 MG eCW1 ([facility]) atorvastatin 80 MG Oral Tablet Atorvastatin Calcium 80 MG Atorvastatin Calcium 80 MG 12/06/2020 12:00:00 AM EDT 1.0 {tablet} activ e Atorvastatin Calcium 80 MG eCW1 ([facility]) atorvastatin 80 MG Oral Tablet Atorvastatin Calcium 80 MG Atorvastatin Calcium 80 MG 12/06/2020 12:00:00 AM EDT 1.0 {tablet} activ e Atorvastatin Calcium 80 MG eCW1 ([facility]) 12 HR Bupropion Hydrochloride 100 MG Ext ended Release Oral Tablet buPROPion HCl ER (SR) 100 MG buPROPion HCl ER (SR) 100 MG 12/06/2020 12:00:00 AM EDT 1.0 {tablet_in_the_morning} active buPROPio n HCl ER (SR) 100 MG eCW1 ([facility]) 12 HR Bupropion Hydrochloride 100 MG Ext ended Release Oral Tablet buPROPion HCl ER (SR) 100 MG buPROPion HCl ER (SR) 100 MG 12/06/2020 12:00:00 AM EDT 1.0 {tablet_in_the_morning} active buPROPio n HCl ER (SR) 100 MG eCW1 ([facility]) 12 HR Bupropion Hydrochloride 100 MG Ext ended Release Oral Tablet buPROPion HCl ER (SR) 100 MG buPROPion HCl ER (SR) 100 MG 12/06/2020 12:00:00 AM EDT 1.0 {tablet_in_the_morning} active buPROPio n HCl ER (SR) 100 MG eCW1 ([facility]) atorvastatin 80 MG Oral Tablet Atorvastatin Calcium 80 MG Atorvastatin Calcium 80 MG 12/06/2020 12:00:00 AM EDT 1.0 {tablet} activ e Atorvastatin Calcium 80 MG eCW1 ([facility]) atorvastatin 80 MG Oral Tablet Atorvastatin Calcium 80 MG Atorvastatin Calcium 80 MG 12/06/2020 12:00:00 AM EDT 1.0 {tablet} activ e Atorvastatin Calcium 80 MG eCW1 ([facility]) 12 HR Bupropion Hydrochloride 100 MG Ext ended Release Oral Tablet buPROPion HCl ER (SR) 100 MG buPROPion HCl ER (SR) 100 MG 12/06/2020 12:00:00 AM EDT 1.0 {tablet_in_the_morning} active buPROPio n HCl ER (SR) 100 MG eCW1 ([facility]) 12 HR Bupropion Hydrochloride 100 MG Ext ended Release Oral Tablet buPROPion (WELLBUTRIN SR) 100 MG 12 hr tablet buPROPion (WELLBUTRIN SR) 100 MG 12 hr tablet 12/06/2020 12:00:00 AM EDT aborted [facility] gabapentin 800 MG Oral Tablet gabapentin (NEURONTIN) 8 00 MG tablet gabapentin (NEURONTIN) 800 MG tablet 12/06/2020 12:00:00 AM EDT 800 mg Oral active Take 800 mg by mouth 3 (three) times a day [facility] atorvastatin 80 MG Oral Tablet atorvastatin (LIPITOR) 80 MG tablet atorvastatin (LIPITOR) 80 MG tablet 12/06/2020 12:00:00 AM EDT 80 mg Oral active Take 80 mg by mouth nightly [facility] Sumatriptan 100 MG Oral Tablet SUMAtriptan (IMITREX) 1 00 MG tablet SUMAtriptan (IMITREX) 100 MG tablet 12/06/2020 12:00:00 AM EDT 100 mg Oral active Take 100 mg by mouth once as needed (at onset of migraine. May repeat dose in 2 hours if needed. MDD : 2 tablets) [facility] albuterol (PROVENTIL HFA;VENTOLIN HFA) 108 (90 Base) M CG/ACT inhaler [id number] 12/06/2020 12:00:00 AM EDT 2 {puff} Inhalation active Inhale 2 puffs every 4 (four) hours as needed for wheezing [facility] 12 HR Bupropion Hydrochloride 100 MG Ext ended Release Oral Tablet buPROPion HCl ER (SR) 100 MG buPROPion HCl ER (SR) 100 MG 12/06/2020 12:00:00 AM EDT 1.0 {tablet_in_the_morning} active buPROPio n HCl ER (SR) 100 MG eCW1 ([facility]) atorvastatin 80 MG Oral Tablet Atorvastatin Calcium 80 MG Atorvastatin Calcium 80 MG 12/06/2020 12:00:00 AM EDT 1.0 {tablet} activ e Atorvastatin Calcium 80 MG eCW1 ([facility]) atorvastatin 80 MG Oral Tablet Atorvastatin Calcium 80 MG Atorvastatin Calcium 80 MG 12/06/2020 12:00:00 AM EDT 1.0 {tablet} activ e Atorvastatin Calcium 80 MG eCW1 ([facility]) 12 HR Bupropion Hydrochloride 100 MG Ext ended Release Oral Tablet BuPROPion HCl ER (SR) 100 MG BuPROPion HCl ER (SR) 100 MG 12/06/2020 12:00:00 AM EDT 1.0 {tablet_in_the_morning} active BuPROPio n HCl ER (SR) 100 MG eCW1 ([facility]) 12 HR Bupropion Hydrochloride 100 MG Ext ended Release Oral Tablet buPROPion HCl ER (SR) 100 MG buPROPion HCl ER (SR) 100 MG 12/06/2020 12:00:00 AM EDT 1.0 {tablet_in_the_morning} active buPROPio n HCl ER (SR) 100 MG eCW1 ([facility]) Amitriptyline Hydrochloride 100 MG Oral Tablet amitriptyline (ELAVIL) 100 MG tablet amitriptyline (ELAVIL) 100 MG tablet 11/25/2020 12:00:00 AM EDT 100 mg Oral active Take 100 mg by mouth nightly [facility] 20 mcg/hour 11/21/2020 12:00:00 AM EST patch [...] the skin every 7 days on Wednesday [facility] 8-2 mg 11/19/2020 12:00:00 AM EST film [...] [facility] SPIRIVA RESPIMAT 2.5 MCG/ACT AERS [id number] 11/06/2020 12:00:00 AM EST 2 {puff} Inhalation active Inhale 2 puffs daily [facility] 28 ACTUAT Fluticasone propionate 0.1 MG/ ACTUAT Dry Powder Inhaler [Flovent] FLOVENT DISKUS 100 MCG/BLIST AEPB FLOVENT DISKUS 100 MCG/BLIST AEPB 11/06/2020 12:00:00 AM EST 1 {puff} Inhalation active Inhale 1 puff 2 (two) times a day [facility] 90 mcg/actuation 11/06/2020 12:00:00 AM EST HFA [...] active Flovent Disku s 100 MCG/BLIST eCW1 ([facility]) Aspirin 81 MG Delayed Release Oral Tablet Aspirin 81 MG 11/05/2020 12:00:00 AM EST 1.0 {tablet} active Aspirin 81 MG eCW1 ([facility]) Aspirin 81 MG Delayed Release Oral Tablet Aspirin 81 MG 11/05/2020 12:00:00 AM EST 1.0 {tablet} active Aspirin 81 MG eCW1 ([facility]) Aspirin 81 MG Delayed Release Oral Tablet Aspirin 81 MG 11/05/2020 12:00:00 AM EST 1.0 {tablet} active Aspirin 81 MG eCW1 ([facility]) Aspirin 81 MG Delayed Release Oral Tablet Aspirin 81 MG 11/05/2020 12:00:00 AM EST 1.0 {tablet} active Aspirin 81 MG eCW1 ([facility]) Aspirin 81 MG Delayed Release Oral Tablet Aspirin 81 MG 11/05/2020 12:00:00 AM EST 1.0 {tablet} active Aspirin 81 MG eCW1 ([facility]) 28 ACTUAT Fluticasone propionate 0.1 MG/ ACTUAT Dry Powder Inhaler [Flovent] Flovent Diskus 100 MCG/BLIST Flovent Diskus 100 MCG/BLIST 11/05/2020 12:00:00 AM EST 1.0 {puff} active Flovent Disku s 100 MCG/BLIST eCW1 ([facility]) 28 ACTUAT tiotropium 0.0025 MG/ACTUAT Me tered Dose Inhaler [Spiriva] Spiriva Respimat 2.5 MCG/ACT Spiriva Respimat 2.5 MCG/ACT 11/05/2020 12:00:00 AM EST 2.0 {puffs} active Spiriva Respimat 2.5 MCG/ACT eCW1 ([facility]) 28 ACTUAT tiotropium 0.0025 MG/ACTUAT Me tered Dose Inhaler [Spiriva] Spiriva Respimat 2.5 MCG/ACT Spiriva Respimat 2.5 MCG/ACT 11/05/2020 12:00:00 AM EST 2.0 {puffs} active Spiriva Respimat 2.5 MCG/ACT eCW1 ([facility]) 28 ACTUAT Fluticasone propionate 0.1 MG/ ACTUAT Dry Powder Inhaler [Flovent] Flovent Diskus 100 MCG/BLIST Flovent Diskus 100 MCG/BLIST 11/05/2020 12:00:00 AM EST 1.0 {puff} active Flovent Disku s 100 MCG/BLIST eCW1 ([facility]) Aspirin 81 MG Delayed Release Oral Tablet Aspirin 81 MG 11/05/2020 12:00:00 AM EST 1.0 {tablet} active Aspirin 81 MG eCW1 ([facility]) Aspirin 81 MG Delayed Release Oral Tablet Aspirin 81 MG 11/05/2020 12:00:00 AM EST 1.0 {tablet} active Aspirin 81 MG eCW1 ([facility]) Aspirin 81 MG Delayed Release Oral Tablet Aspirin 81 MG 11/05/2020 12:00:00 AM EST 1.0 {tablet} active Aspirin 81 MG eCW1 ([facility]) 28 ACTUAT tiotropium 0.0025 MG/ACTUAT Me tered Dose Inhaler [Spiriva] Spiriva Respimat 2.5 MCG/ACT Spiriva Respimat 2.5 MCG/ACT 11/05/2020 12:00:00 AM EST 2.0 {puffs} active Spiriva Respimat 2.5 MCG/ACT eCW1 ([facility]) 28 ACTUAT tiotropium 0.0025 MG/ACTUAT Me tered Dose Inhaler [Spiriva] Spiriva Respimat 2.5 MCG/ACT Spiriva Respimat 2.5 MCG/ACT 11/05/2020 12:00:00 AM EST 2.0 {puffs} active Spiriva Respimat 2.5 MCG/ACT eCW1 ([facility]) 28 ACTUAT Fluticasone propionate 0.1 MG/ ACTUAT Dry Powder Inhaler [Flovent] Flovent Diskus 100 MCG/BLIST Flovent Diskus 100 MCG/BLIST 11/05/2020 12:00:00 AM EST 1.0 {puff} active Flovent Disku s 100 MCG/BLIST eCW1 ([facility]) 20 mcg/hour 10/23/2020 12:00:00 AM EST [...] 1 PATCH PER WEEK SOLD: 07/27/2020 [facility] 8-2 mg 07/02/2020 12:00:00 AM [...] TABLET BY MOUTH EVERY DAY SOLD: 08/27/2020 [facility] gabapentin 800 MG Oral Tablet GABAPENTIN [...] mouth every 8 (eight) hours as needed [facility] Hydrocodone Bitartrate 10 MG / Ibuprofen 200 MG Oral Tablet HYDROcodone- Ibuprofen 10-200 MG TABS HYDROcodone-Ibuprofen 10-200 MG TABS 1 {tbl} Oral aborted Take 1 tablet by mouth 4 (four) times a day as needed (for pain) [facility] Insurance Providers Payer name Policy type / Coverage type Policy ID Covered alliance party ID Covered alliance party's relationship to pedro Policy Pedro Plan Information [facility] () Workers Compensation [id number] Self [id number] [facility] Part B [id number] Self [id number] [facility] () Workers Compensation [id number] Self [id number] [employer] () Workers Compensation [id number] Self [id number] [facility] () Workers Compensation [id number] Self [id number] MEDICARE [id number] Eugenia [id number] MEDICARE [id number] A MEDICARE [id number] MEDICARE [id number] Eugenia [id number] [id number] HUMANA [id number] xxxxxxxxx [id number] HUMANA MEDICARE [id number] xxxxxxxxx [id number] HUMANA [id number] Eugenia [id number] HUMANA MEDICARE [id number] Eugenia [id number] HUMANA MEDICARE [id number] Eugenia [id number] HUMANA [id number] Eugenia [id number] INSURANCE COVID-19 COVID Eugenia C OVID INSURANCE COVID-19 COVID Eugenia C OVID INSURANCE COVID-19 [id number] xOVID 2 [id number] INSURANCE COVID-19 COVID Eugenia C OVID INSURANCE COVID-19 COVID Eugenia C OVID INSURANCE COVID-19 [id number] xOVID 2 [id number] ANSI-Medicare Part B [id number] ANSI-Medicare Part B [id number] ANSI-Medicare Part B [id number] ANSI-Medicare Part B [id number] ANSI-Medicare Part B [id number] ANSI-Medicare Part B [id number] ANSI-Medicare Part B [id number] ANSI-Medicare Part B [id number] ANSI-Medicare Part B [id number] ANSI-Medicare Part B [id number] ANSI-Medicare Part B [id number] MEDICARE C [id number] S [id number] A HUMANA GOLD [id number] SP [id number] Medicare Medicare Primary [id number] Self HUMANA GOLD [id number] SP [id number] [facility] [id number] SP [id number] MEDICARE [id number] SP [id number] A HUMANA PPO [id number] SP [id number] MEDICARE [id number] SP [id number] ANSI-Commercial [id number] ANSI-Medicare Part B [id number] ANSI-Commercial [id number] ANSI-Medicare Part B [id number] ANSI-Medicare Part B [id number] ANSI-Commercial [id number] Medicare [place] Primary [id number] Self 3 [id number] ANSI-Commercial [id number] ANSI-Medicare Part B [id number] ANSI-Medicare Part B [id number] ANSI-Medicare Part B [id number] ANSI-Medicare Part B [id number] ANSI-Medicare Part B [id number] ANSI-Medicare Part B [id number] ANSI-Medicare Part B [id number] ANSI-Medicare Part B [id number] Problems, Conditions, and Diagnoses Code Display Name Description Problem Type Effective Dates Data Source(s) I48.3 Typical atrial flutter Typical atrial flutter Diagnosi s 07/08/2021 03:24:34 PM EDT [facility] Z95.0 Presence of cardiac pacemaker Presence of cardiac pace maker Diagnosis 04/28/2021 02:44:50 PM EDT [facility] R09.89 Other specified symptoms and signs involving the circulatory and respiratory systems Other specified symptoms and signs invol Diagnosis 04/28/2021 02:44:50 PM EDT [facility] F17.200 Nicotine dependence, unspecified, uncomp licated Nicotine dependence, unspecified, uncomp Diagnosis 04/28/2021 02:44:50 PM EDT [facility] E78.00 Pure hypercholesterolemia, unspecified P ure hypercholesterolemia, unspecified Diagnosis 04/28/2021 02:44:50 PM EDT [facility] Z95.2 Presence of prosthetic heart valve Presence of p rosthetic heart valve Diagnosis 04/28/2021 02:44:50 PM EDT [facility] 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 Rheumatic mitral insuff iciency Diagnosis 04/17/2021 05:18:00 AM EDT [facility] U07.1 COVID-19 COVID-19 Diagnosis 04/14/2021 08:25:17 AM ED T [facility] 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 Rheumatic mitral stenosis with insuffici Diagnosis 04/07/2021 02:12:35 PM EDT [facility] I73.9 Peripheral vascular disease, unspecified Peripheral vascular disease, unspecified Diagnosis 01/13/2021 01:57:32 PM EDT [facility] 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 Rheumatic mitral stenosis with insuffici Diagnosis 01/13/2021 01:57:32 PM EDT [facility] R06.02 Shortness of breath Shortness of breath Diagnosis 0 01/06/2021 02:29:51 PM EDT [facility] Z95.2 [id number] H/O mitral valve replacement with mecha nical valve Problem 06/19/2021 12:00:00 AM EDT [facility] ([facility]) I48.3 [id number] Typical atrial flutter Problem 06/19/2021 12 :00:00 AM EDT [facility] ([facility]) Z95.0 [id number] Pacemaker Problem 06/19/2021 12:00:00 AM ED T [facility] ([facility]) Z95.0 Permanent cardiac pacemaker Permanent cardiac pacemake r [id number] 04/28/2021 12:00:00 AM EDT [facility] Z95.2 Mitral valve replacement Mitral valve replacement 6457 200004/26/2021 12:00:00 AM EDT [facility] I05.1 Rheumatic mitral regurgitation Rheumatic mitral regurg itation [id number] 12/09/2020 12:00:00 AM EDT [facility] R09.89 Right carotid bruit Right carotid bruit [id number] 0 12/09/2020 12:00:00 AM EDT [facility] F17.200 Smoker Smoker [id number] 12/09/2020 12:00:00 AM ED T [facility] E78.00 Hypercholesterolemia Hypercholesterolemia [id number] 12/09/2020 12:00:00 AM EDT [facility] I73.9 Peripheral vascular disease Peripheral vascular diseas e [id number] 12/09/2020 12:00:00 AM EDT [facility] R06.02 Shortness of breath Shortness of breath [id number] 0 12/09/2020 12:00:00 AM EDT [facility] 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 Rheumatic mitral stenosis with insufficiency [id number] 12/09/2020 12:00:00 AM EDT [facility] N20.0 [id number] Kidney stones Problem 12/06/2020 12:00:00 AM EDT eCW1 ([facility]) E78.5 [id number] Acquired hyperlipoproteinemia Problem 2020 12:00:00 AM EDT eCW1 ([facility]) I05.2 [id number] Mitral stenosis with insufficiency, rheum atic Problem 12/06/2020 12:00:00 AM EDT eCW1 ([facility]) I73.9 [id number] Claudication of both lower extremities Pr oblem 11/05/2020 12:00:00 AM EST eCW1 ([facility]) Z00.00 [id number] Medicare annual wellness visit, subsequen t Problem 11/05/2020 12:00:00 AM EST eCW1 ([facility]) I73.9 Peripheral vascular disease PAD (peripheral artery dis ease) Problem 11/05/2020 12:00:00 AM EST eCW1 ([facility]) Surgeries/Procedures Procedure Description Date Indications Data Source(s) ECG ROUTINE ECG W/LEAST 12 LDS W/I&R 06/19/2021 12:00: 00 AM EDT eCW1 ([facility]) POCT AMB EKG <td>POCT AMB EKG</td><td>Rou twan</td><td>04/28/2021 3:53 PM EDT</td><td> Mitral valve replacement</td><td> </td> 04/28/2021 03:53:00 PM EDT Mitral valve replacement [facility] Mitral valve replacement XR CHEST PORTABLE <td>XR CHEST PORTABLE</td><t d>Pending Discharge</td><td>04/23/2021 5:03 PM EDT</td><td></td><td> </td> 04/23/2021 05:03:06 PM EDT [facility] XR CHEST PA AND LATERAL <td>XR CHEST PA AND LATERAL</td><td>Timed</td><td>04/23/2021 1:39 PM EDT</td><td></td><td> </td> 04/23/2021 01:39:13 PM EDT [facility] PROTHROMBIN TIME <td>PROTIME-INR</td><td>Rout ine</td><td>04/23/2021 12:12 PM EDT</td><td></td><td> </td> 04/23/2021 12:12:00 PM EDT [facility] BLOOD COUNT COMPLETE AUTOMATED <td>CBC</td><td>Timed</ td><td>04/23/2021 12:12 PM EDT</td><td></td><td> </td> 04/23/2021 12:12:00 PM EDT [facility] MAGNESIUM <td>MAGNESIUM</td><td>Timed< /td><td>04/23/2021 12:12 PM EDT</td><td></td><td> </td> 04/23/2021 12:12:00 PM EDT [facility] BASIC METABOLIC PANEL CALCIUM TOTAL <td>BASIC METABOLI C PANEL</td><td>Timed</td><td>04/23/2021 12:12 PM EDT</td><td></td><td> </td> 04/23/2021 12:12:00 PM EDT [facility] XR CHEST PA AND LATERAL <td>XR CHEST PA AND LATERAL</td><td>Routine</td><td>04/23/2021 8:01 AM EDT</td><td></td><td> </td> 04/23/2021 08:01:02 AM EDT [facility] ECG ROUTINE ECG W/LEAST 12 LDS TRCG ONLY W/O I&R <td>E CG 12- LEAD</td><td>Routine</td><td>04/23/2021 5:45 AM EDT</td><td></td><td></td> 04/23/2021 05:45:32 AM EDT [facility] XR CHEST PORTABLE <td>XR CHEST PORTABLE</td><t d>STAT</td><td>04/22/2021 6:39 PM EDT</td><td></td><td> </td> 04/22/2021 06:39:00 PM EDT [facility] FLUOROSCOPY SPX <1 HOUR PHYSICIAN TIME <td>XR FLUORO P ACEMAKER INSERT</td><td>STAT</td><td>04/22/2021 6:10 PM EDT</td><td></td><td> </td> 04/22/2021 06:10:22 PM EDT [facility] INSERTION, CARDIAC PACEMAKER, BIVENTRICULAR <td>INSERT ION, CARDIAC PACEMAKER, BIVENTRICULAR</td><td></td><td>04/22/2021 5:13 PM EDT</td><td> COMPLETE HEART BLOCK</td><td></td> 04/22/2021 05:13:00 PM EDT - 04/22/2021 06:45:00 PM EDT [facility] BLOOD TYPING ABO <td>TYPE AND SCREEN</td><td> Routine</td><td>04/22/2021 4:09 PM EDT</td><td></td><td> </td> 04/22/2021 04:09:00 PM EDT [facility] COVID/FLU AB/RSV PCR <td>COVID/FLU AB/RSV PCR</td ><td>STAT</td><td>04/22/2021 1:55 PM EDT</td><td></td><td> </td> 04/22/2021 01:55:00 PM EDT [facility] POTASSIUM SERUM PLASMA/WHOLE BLOOD <td>POTASSIUM</td>< td>STAT</td><td>04/22/2021 8:51 AM EDT</td><td></td><td> </td> 04/22/2021 08:51:00 AM EDT [facility] XR CHEST PORTABLE <td>XR CHEST PORTABLE</td><t d>Timed</td><td>04/22/2021 7:05 AM EDT</td><td></td><td> </td> 04/22/2021 07:05:10 AM EDT [facility] BLOOD COUNT COMPLETE AUTOMATED <td>CBC</td><td>Routine </td><td>04/22/2021 3:16 AM EDT</td><td></td><td> </td> 04/22/2021 03:16:00 AM EDT [facility] MAGNESIUM <td>MAGNESIUM</td><td>Routin e</td><td>04/22/2021 3:16 AM EDT</td><td></td><td> </td> 04/22/2021 03:16:00 AM EDT [facility] BASIC METABOLIC PANEL CALCIUM TOTAL <td>BASIC METABOLI C PANEL</td><td>Routine</td><td>04/22/2021 3:16 AM EDT</td><td></td><td> </td> 04/22/2021 03:16:00 AM EDT [facility] PROTHROMBIN TIME <td>PROTIME-INR</td><td>Rout ine</td><td>04/22/2021 3:09 AM EDT</td><td></td><td> </td> 04/22/2021 03:09:00 AM EDT [facility] PROTHROMBIN TIME <td>PROTIME-INR</td><td>Rout ine</td><td>04/21/2021 2:44 AM EDT</td><td></td><td> </td> 04/21/2021 02:44:00 AM EDT [facility] BLOOD COUNT COMPLETE AUTOMATED <td>CBC</td><td>Routine </td><td>04/21/2021 2:44 AM EDT</td><td></td><td> </td> 04/21/2021 02:44:00 AM EDT [facility] BASIC METABOLIC PANEL CALCIUM TOTAL <td>BASIC METABOLI C PANEL</td><td>Routine</td><td>04/21/2021 2:44 AM EDT</td><td></td><td> </td> 04/21/2021 02:44:00 AM EDT [facility] XR CHEST PORTABLE <td>XR CHEST PORTABLE</td><t d>Timed</td><td>04/20/2021 11:57 AM EDT</td><td></td><td> </td> 04/20/2021 11:57:44 AM EDT [facility] POTASSIUM SERUM PLASMA/WHOLE BLOOD <td>POTASSIUM</td><td>Routine</td><td>04/20/2021 11:12 AM EDT</td><td></td><td> </td> 04/20/2021 11:12:00 AM EDT [facility] GLUC BLD GLUC MNTR DEV CLEARED FDA SPEC HOME USE <td>P OCT GLUCOSE</td><td>Routine</td><td>04/20/2021 7:53 AM EDT</td><td></td><td> </td> 04/20/2021 07:53:00 AM EDT [facility] POTASSIUM SERUM PLASMA/WHOLE BLOOD <td>POTASSIUM</td>< td>STAT</td><td>04/20/2021 7:29 AM EDT</td><td></td><td> </td> 04/20/2021 07:29:00 AM EDT [facility] HEPATIC FUNCTION PANEL <td>HEPATIC FUNCTION PANEL</ td><td>Add- On</td><td>04/20/2021 7:29 AM EDT</td><td></td><td> </td> 04/20/2021 07:29:00 AM EDT [facility] PROTHROMBIN TIME <td>PROTIME-INR</td><td>Time d</td><td>04/20/2021 2:26 AM EDT</td><td></td><td> </td> 04/20/2021 02:26:00 AM EDT [facility] BLOOD COUNT COMPLETE AUTOMATED <td>CBC</td><td>Timed</ td><td>04/20/2021 2:26 AM EDT</td><td></td><td> </td> 04/20/2021 02:26:00 AM EDT [facility] MAGNESIUM <td>MAGNESIUM</td><td>Timed< /td><td>04/20/2021 2:26 AM EDT</td><td></td><td> </td> 04/20/2021 02:26:00 AM EDT [facility] CALCIUM IONIZED <td>CALCIUM, IONIZED</td><td >Timed</td><td>04/20/2021 2:26 AM EDT</td><td></td><td> </td> 04/20/2021 02:26:00 AM EDT [facility] BASIC METABOLIC PANEL CALCIUM TOTAL <td>BASIC METABOLI C PANEL</td><td>Timed</td><td>04/20/2021 2:26 AM EDT</td><td></td><td> </td> 04/20/2021 02:26:00 AM EDT [facility] GLUC BLD GLUC MNTR DEV CLEARED FDA SPEC HOME USE <td>P OCT GLUCOSE</td><td>Routine</td><td>04/19/2021 5:56 PM EDT</td><td></td><td> </td> 04/19/2021 05:56:00 PM EDT [facility] XR CHEST PORTABLE <td>XR CHEST PORTABLE</td><t d>Timed</td><td>04/19/2021 1:24 PM EDT</td><td></td><td> </td> 04/19/2021 01:24:15 PM EDT [facility] GLUC BLD GLUC MNTR DEV CLEARED FDA SPEC HOME USE <td>P OCT GLUCOSE</td><td>Routine</td><td>04/19/2021 1:00 PM EDT</td><td></td><td> </td> 04/19/2021 01:00:00 PM EDT [facility] GLUC BLD GLUC MNTR DEV CLEARED FDA SPEC HOME USE <td>P OCT GLUCOSE</td><td>Routine</td><td>04/19/2021 8:24 AM EDT</td><td></td><td> </td> 04/19/2021 08:24:00 AM EDT [facility] BASIC METABOLIC PANEL CALCIUM TOTAL <td>BASIC METABOLI C PANEL</td><td>Timed</td><td>04/19/2021 2:18 AM EDT</td><td></td><td> </td> 04/19/2021 02:18:00 AM EDT [facility] PROTHROMBIN TIME <td>PROTIME-INR</td><td>Time d</td><td>04/19/2021 2:18 AM EDT</td><td></td><td> </td> 04/19/2021 02:18:00 AM EDT [facility] BLOOD COUNT COMPLETE AUTOMATED <td>CBC</td><td>Timed</ td><td>04/19/2021 2:18 AM EDT</td><td></td><td> </td> 04/19/2021 02:18:00 AM EDT [facility] MAGNESIUM <td>MAGNESIUM</td><td>Timed< /td><td>04/19/2021 2:18 AM EDT</td><td></td><td> </td> 04/19/2021 02:18:00 AM EDT [facility] CALCIUM IONIZED <td>CALCIUM, IONIZED</td><td >Timed</td><td>04/19/2021 2:18 AM EDT</td><td></td><td> </td> 04/19/2021 02:18:00 AM EDT [facility] GLUC BLD GLUC MNTR DEV CLEARED FDA SPEC HOME USE <td>P OCT GLUCOSE</td><td>Routine</td><td>04/18/2021 6:40 PM EDT</td><td></td><td> </td> 04/18/2021 06:40:00 PM EDT [facility] GLUC BLD GLUC MNTR DEV CLEARED FDA SPEC HOME USE <td>P OCT GLUCOSE</td><td>Routine</td><td>04/18/2021 12:40 PM EDT</td><td></td><td> </td> 04/18/2021 12:40:00 PM EDT [facility] GLUC BLD GLUC MNTR DEV CLEARED FDA SPEC HOME USE <td>P OCT GLUCOSE</td><td>Routine</td><td>04/18/2021 9:44 AM EDT</td><td></td><td> </td> 04/18/2021 09:44:00 AM EDT [facility] POTASSIUM SERUM PLASMA/WHOLE BLOOD <td>POTASSIUM</td><td>Routine</td><td>04/18/2021 9:40 AM EDT</td><td></td><td> </td> 04/18/2021 09:40:00 AM EDT [facility] MAGNESIUM <td>MAGNESIUM</td><td>Routin e</td><td>04/18/2021 9:40 AM EDT</td><td></td><td> </td> 04/18/2021 09:40:00 AM EDT [facility] GLUC BLD GLUC MNTR DEV CLEARED FDA SPEC HOME USE <td>P OCT GLUCOSE</td><td>Routine</td><td>04/18/2021 6:07 AM EDT</td><td></td><td> </td> 04/18/2021 06:07:00 AM EDT [facility] GLUC BLD GLUC MNTR DEV CLEARED FDA SPEC HOME USE <td>P OCT GLUCOSE</td><td>Routine</td><td>04/18/2021 3:04 AM EDT</td><td></td><td> </td> 04/18/2021 03:04:00 AM EDT [facility] PROTHROMBIN TIME <td>PROTIME-INR</td><td>Time d</td><td>04/18/2021 3:00 AM EDT</td><td></td><td> </td> 04/18/2021 03:00:00 AM EDT [facility] BLOOD COUNT COMPLETE AUTOMATED <td>CBC</td><td>Timed</ td><td>04/18/2021 3:00 AM EDT</td><td></td><td> </td> 04/18/2021 03:00:00 AM EDT [facility] MAGNESIUM <td>MAGNESIUM</td><td>Timed< /td><td>04/18/2021 3:00 AM EDT</td><td></td><td> </td> 04/18/2021 03:00:00 AM EDT [facility] CALCIUM IONIZED <td>CALCIUM, IONIZED</td><td >Timed</td><td>04/18/2021 3:00 AM EDT</td><td></td><td> </td> 04/18/2021 03:00:00 AM EDT [facility] BASIC METABOLIC PANEL CALCIUM TOTAL <td>BASIC METABOLI C PANEL</td><td>Timed</td><td>04/18/2021 3:00 AM EDT</td><td></td><td> </td> 04/18/2021 03:00:00 AM EDT [facility] GLUC BLD GLUC MNTR DEV CLEARED FDA SPEC HOME USE <td>P OCT GLUCOSE</td><td>Routine</td><td>04/18/2021 12:29 AM EDT</td><td></td><td> </td> 04/18/2021 12:29:00 AM EDT [facility] GLUC BLD GLUC MNTR DEV CLEARED FDA SPEC HOME USE <td>P OCT GLUCOSE</td><td>Routine</td><td>04/17/2021 10:02 PM EDT</td><td></td><td> </td> 04/17/2021 10:02:00 PM EDT [facility] BLOOD COUNT COMPLETE AUTOMATED <td>CBC</td><td>STAT</t d><td>04/17/2021 9:03 PM EDT</td><td></td><td> </td> 04/17/2021 09:03:00 PM EDT [facility] POTASSIUM SERUM PLASMA/WHOLE BLOOD <td>POTASSIUM</td><td>Routine</td><td>04/17/2021 9:03 PM EDT</td><td></td><td> </td> 04/17/2021 09:03:00 PM EDT [facility] GLUC BLD GLUC MNTR DEV CLEARED FDA SPEC HOME USE <td>P OCT GLUCOSE</td><td>Routine</td><td>04/17/2021 7:57 PM EDT</td><td></td><td> </td> 04/17/2021 07:57:00 PM EDT [facility] GLUC BLD GLUC MNTR DEV CLEARED FDA SPEC HOME USE <td>P OCT GLUCOSE</td><td>Routine</td><td>04/17/2021 5:57 PM EDT</td><td></td><td> </td> 04/17/2021 05:57:00 PM EDT [facility] POC ARTERIAL BLOOD GAS <td>POC ARTERIAL BLOOD GAS</td><td>Routine</td><td>04/17/2021 5:18 PM EDT</td><td></td><td> </td> 04/17/2021 05:18:00 PM EDT [facility] GLUC BLD GLUC MNTR DEV CLEARED FDA SPEC HOME USE <td>P OCT GLUCOSE</td><td>Routine</td><td>04/17/2021 4:00 PM EDT</td><td></td><td> </td> 04/17/2021 04:00:00 PM EDT [facility] POTASSIUM SERUM PLASMA/WHOLE BLOOD <td>POTASSIUM</td>< td>STAT</td><td>04/17/2021 3:58 PM EDT</td><td></td><td> </td> 04/17/2021 03:58:00 PM EDT [facility] GLUC BLD GLUC MNTR DEV CLEARED FDA SPEC HOME USE <td>P OCT GLUCOSE</td><td>Routine</td><td>04/17/2021 2:28 PM EDT</td><td></td><td> </td> 04/17/2021 02:28:00 PM EDT [facility] GLUC BLD GLUC MNTR DEV CLEARED FDA SPEC HOME USE <td>P OCT GLUCOSE</td><td>Routine</td><td>04/17/2021 1:31 PM EDT</td><td></td><td> </td> 04/17/2021 01:31:00 PM EDT [facility] GLUC BLD GLUC MNTR DEV CLEARED FDA SPEC HOME USE <td>P OCT GLUCOSE</td><td>Routine</td><td>04/17/2021 12:30 PM EDT</td><td></td><td> </td> 04/17/2021 12:30:00 PM EDT [facility] POC CALCIUM BG <td>POC CALCIUM BG</td><td>R outine</td><td>04/17/2021 11:58 AM EDT</td><td></td><td> </td> 04/17/2021 11:58:00 AM EDT [facility] POC ARTERIAL BLOOD GAS <td>POC ARTERIAL BLOOD GAS</td><td>Routine</td><td>04/17/2021 11:52 AM EDT</td><td></td><td> </td> 04/17/2021 11:52:00 AM EDT [facility] XR CHEST PORTABLE <td>XR CHEST PORTABLE</td><t d>STAT</td><td>04/17/2021 11:45 AM EDT</td><td></td><td> </td> 04/17/2021 11:45:26 AM EDT [facility] ECG ROUTINE ECG W/LEAST 12 LDS TRCG ONLY W/O I&R <td>E CG 12- LEAD</td><td>Routine</td><td>04/17/2021 11:19 AM EDT</td><td></td><td></td> 04/17/2021 11:19:23 AM EDT [facility] GLUC BLD GLUC MNTR DEV CLEARED FDA SPEC HOME USE <td>P OCT GLUCOSE</td><td>Routine</td><td>04/17/2021 11:18 AM EDT</td><td></td><td> </td> 04/17/2021 11:18:00 AM EDT [facility] BLOOD COUNT COMPLETE AUTOMATED <td>CBC</td><td>STAT</t d><td>04/17/2021 11:16 AM EDT</td><td></td><td> </td> 04/17/2021 11:16:00 AM EDT [facility] MAGNESIUM <td>MAGNESIUM</td><td>STAT</ td><td>04/17/2021 11:16 AM EDT</td><td></td><td> </td> 04/17/2021 11:16:00 AM EDT [facility] CALCIUM IONIZED <td>CALCIUM, IONIZED</td><td >STAT</td><td>04/17/2021 11:16 AM EDT</td><td></td><td> </td> 04/17/2021 11:16:00 AM EDT [facility] BASIC METABOLIC PANEL CALCIUM TOTAL <td>BASIC METABOLI C PANEL</td><td>STAT</td><td>04/17/2021 11:16 AM EDT</td><td></td><td> </td> 04/17/2021 11:16:00 AM EDT [facility] POC ARTERIAL BLOOD GAS W LYTES <td>POC ARTERIAL BLOOD GAS W LYTES</td><td>Routine</td><td>04/17/2021 10:35 AM EDT</td><td></td><td> </td> 04/17/2021 10:35:00 AM EDT [facility] POC ACT <td>POC ACT</td><td>Routine< /td><td>04/17/2021 10:34 AM EDT</td><td></td><td> </td> 04/17/2021 10:34:00 AM EDT [facility] THROMBOPLASTIN TIME PARTIAL PLASMA/WHOLE BLOOD <td>APTT</td><td>Routine</td><td>04/17/2021 10:32 AM EDT</td><td></td><td> </td> 04/17/2021 10:32:00 AM EDT [facility] PROTHROMBIN TIME <td>PROTIME-INR</td><td>Rout ine</td><td>04/17/2021 10:32 AM EDT</td><td></td><td> </td> 04/17/2021 10:32:00 AM EDT [facility] POC ARTERIAL BLOOD GAS W LYTES <td>POC ARTERIAL BLOOD GAS W LYTES</td><td>Routine</td><td>04/17/2021 9:45 AM EDT</td><td></td><td> </td> 04/17/2021 09:45:00 AM EDT [facility] POC VENOUS BLOOD GAS W LYTES <td>POC VENOUS BLOOD GAS W LYTES</td><td>Routine</td><td>04/17/2021 9:41 AM EDT</td><td></td><td> </td> 04/17/2021 09:41:00 AM EDT [facility] POC ACT <td>POC ACT</td><td>Routine< /td><td>04/17/2021 9:40 AM EDT</td><td></td><td> </td> 04/17/2021 09:40:00 AM EDT [facility] POC VENOUS BLOOD GAS W LYTES <td>POC VENOUS BLOOD GAS W LYTES</td><td>Routine</td><td>04/17/2021 9:12 AM EDT</td><td></td><td> </td> 04/17/2021 09:12:00 AM EDT [facility] POC ACT <td>POC ACT</td><td>Routine< /td><td>04/17/2021 9:11 AM EDT</td><td></td><td> </td> 04/17/2021 09:11:00 AM EDT [facility] POC ARTERIAL BLOOD GAS W LYTES <td>POC ARTERIAL BLOOD GAS W LYTES</td><td>Routine</td><td>04/17/2021 8:44 AM EDT</td><td></td><td> </td> 04/17/2021 08:44:00 AM EDT [facility] POC ACT <td>POC ACT</td><td>Routine< /td><td>04/17/2021 8:43 AM EDT</td><td></td><td> </td> 04/17/2021 08:43:00 AM EDT [facility] LEVEL IV SURG PATHOLOGY GROSS&MICROSCOPIC EXAM <td>[facility] HISTOLOGY</td><td>Routine</td><td>04/17/2021 8:19 AM EDT</td><td></td><td> </td> 04/17/2021 08:19:00 AM EDT [facility] POC ARTERIAL BLOOD GAS W LYTES <td>POC ARTERIAL BLOOD GAS W LYTES</td><td>Routine</td><td>04/17/2021 7:45 AM EDT</td><td></td><td> </td> 04/17/2021 07:45:00 AM EDT [facility] POC ACT <td>POC ACT</td><td>Routine< /td><td>04/17/2021 7:44 AM EDT</td><td></td><td> </td> 04/17/2021 07:44:00 AM EDT [facility] REPAIR OR REPLACEMENT, MITRAL VALVE, MIN IMALLY INVASIVE, RIGHT THORACOTOMY APPROACH, USING HEARTPORT TECHNIQUE <td>REPAIR OR REPLACEMENT, MITRAL VALVE, MINIMALLY INVASIVE, RIGHT THORACOTOMY APPROACH, USING HEARTPORT TECHNIQUE</td><td></td><td>04/17/2021 7:24 AM EDT</td><td> Rheumatic mitral regurgitation</td><td></td> 04/17/2021 07:24:00 AM EDT - 04/17/2021 11:55:00 AM EDT Rheumatic mitral regurgitation [facility] Rheumatic mitral regurgitation ECG TRANSESOPHAG R-T 2D W/PRB IMG ACQUISJ I&R <td>ECHO CARDIOGRAM TRANSESOPHAGEAL</td><td>Routine</td><td>04/17/2021 7:21 AM EDT</td><td></td><td> </td> 04/17/2021 07:21:51 AM EDT [facility] GLUC BLD GLUC MNTR DEV CLEARED FDA SPEC HOME USE <td>P OCT GLUCOSE</td><td>Routine</td><td>04/17/2021 6:27 AM EDT</td><td></td><td> </td> 04/17/2021 06:27:00 AM EDT [facility] BLOOD TYPING ABO <td>PREPARE RBC</td><td>Rout ine</td><td>04/17/2021 12:01 AM EDT</td><td></td><td> </td> 04/17/2021 12:01:00 AM EDT [facility] ECG ROUTINE ECG W/LEAST 12 LDS TRCG ONLY W/O I&R <td>E CG 12- LEAD</td><td>Routine</td><td>04/14/2021 10:03 AM EDT</td><td> Rheumatic mitral regurgitation</td><td></td> 04/14/2021 10:03:21 AM EDT Rheumatic mitral regurgitation [facility] Rheumatic mitral regurgitation URNLS DIP STICK/TABLET RGNT AUTO W/O MICROSCOPY <td>UR INALYSIS W/O MICRO</td><td>Routine</td><td>04/14/2021 10:00 AM EDT</td><td> Rheumatic mitral regurgitation</td><td> </td> 04/14/2021 10:00:00 AM EDT Rheumatic mitral regurgitation [facility] Rheumatic mitral regurgitation ROOM TEMP AB SCREEN <td>ROOM TEMP AB SCREEN</td> <td>Routine</td><td>04/14/2021 9:40 AM EDT</td><td> Rheumatic mitral regurgitation</td><td> </td> 04/14/2021 09:40:00 AM EDT Rheumatic mitral regurgitation [facility] Rheumatic mitral regurgitation NT PRO BNP <td>NT PRO BNP</td><td>Routi ne</td><td>04/14/2021 9:40 AM EDT</td><td> Rheumatic mitral regurgitation</td><td> </td> 04/14/2021 09:40:00 AM EDT Rheumatic mitral regurgitation [facility] Rheumatic mitral regurgitation THROMBOPLASTIN TIME PARTIAL PLASMA/WHOLE BLOOD <td>APTT</td><td>Routine</td><td>04/14/2021 9:40 AM EDT</td><td> Rheumatic mitral regurgitation</td><td> </td> 04/14/2021 09:40:00 AM EDT Rheumatic mitral regurgitation [facility] Rheumatic mitral regurgitation PROTHROMBIN TIME <td>PROTIME-INR</td><td>Rout ine</td><td>04/14/2021 9:40 AM EDT</td><td> Rheumatic mitral regurgitation</td><td> </td> 04/14/2021 09:40:00 AM EDT Rheumatic mitral regurgitation [facility] Rheumatic mitral regurgitation BLOOD COUNT COMPLETE AUTO&AUTO DIFRNTL WBC COUNT <td>C BC AND DIFFERENTIAL</td><td>Routine</td><td>04/14/2021 9:40 AM EDT</td><td> Rheumatic mitral regurgitation</td><td> </td> 04/14/2021 09:40:00 AM EDT Rheumatic mitral regurgitation [facility] Rheumatic mitral regurgitation BLOOD TYPING ABO <td>TYPE AND SCREEN</td><td> Routine</td><td>04/14/2021 9:40 AM EDT</td><td> Rheumatic mitral regurgitation</td><td> </td> 04/14/2021 09:40:00 AM EDT Rheumatic mitral regurgitation [facility] Rheumatic mitral regurgitation HEMOGLOBIN GLYCOSYLATED A1C <td>HEMOGLOBIN A1C</td><td>Routine</td><td>04/14/2021 9:40 AM EDT</td><td> Rheumatic mitral regurgitation</td><td> </td> 04/14/2021 09:40:00 AM EDT Rheumatic mitral regurgitation [facility] Rheumatic mitral regurgitation COMPREHENSIVE METABOLIC PANEL <td>COMPREHENSIVE METABO LIC PANEL</td><td>Routine</td><td>04/14/2021 9:40 AM EDT</td><td> Rheumatic mitral regurgitation</td><td> </td> 04/14/2021 09:40:00 AM EDT Rheumatic mitral regurgitation [facility] Rheumatic mitral regurgitation POC ARTERIAL BLOOD GAS <td>POC ARTERIAL BLOOD GAS</td><td>Routine</td><td>04/14/2021 9:38 AM EDT</td><td></td><td> </td> 04/14/2021 09:38:00 AM EDT [facility] Bronchospasm Evaluation 03/20/2021 12:00:00 AM EDT [facility] ([facility]) Plethysmography Determination Lung Volumes & Per Airway Resi st 03/20/2021 12:00:00 AM EDT [facility] ([facility]) DIFFUSING CAPACITY 03/20/2021 12:00:00 AM EDT [facility] ([facility] ECG ROUTINE ECG W/LEAST 12 LDS W/I&R <td>POCT AMB EKG</td><td>Routine</td><td>02/06/2021 5:47 PM EDT</td><td> Rheumatic mitral stenosis with insufficiency</td><td> </td> 02/06/2021 05:47:00 PM EDT Rheumatic mitral stenosis with insufficiency [facility] Rheumatic mitral stenosis with insuffici ency OFFICE OUTPATIENT VISIT 15 MINUTES 01/15/2021 12:00:00 AM EDT [facility] ([facility] ECG ROUTINE ECG W/LEAST 12 LDS W/I&R <td>POCT AMB EKG</td><td>Routine</td><td>01/06/2021</td><td> Shortness of breath</td><td> </td> 01/06/2021 12:00:00 AM EDT Shortness of breath [facility] Shortness of breath RADEX SPINE ENTIRE SURVEY STD ANTEROPOST&LAT <td>CARDI AC CATHETERIZATION</td><td>Routine</td><td>12/10/2020 1:25 PM EDT</td><td> Shortness of breath Rheumatic mitral regurgitation Rheumatic mitral stenosis with insufficiency Peripheral vascular disease Hypercholesterolemia Smoker Right carotid bruit</td><td> </td> 12/10/2020 05:25:21 PM EDT Right carotid bruitSmokerHypercholestero lemiaPeripheral vascular diseaseRheumatic mitral stenosis with insufficiencyRheumatic mitral regurgitationShortness of breath [facility] Right carotid bruit Smoker Hypercholesterolemia Peripheral vascular disease Rheumatic mitral stenosis with insuffici ency Rheumatic mitral regurgitation Shortness of breath COVID/FLU AB/RSV PCR <td>COVID/FLU AB/RSV PCR</td ><td>STAT</td><td>12/10/2020 9:50 AM EDT</td><td></td><td> </td> 12/10/2020 01:50:00 PM EDT [facility] BLOOD COUNT COMPLETE AUTOMATED <td>CBC</td><td>STAT</t d><td>12/10/2020 9:36 AM EDT</td><td></td><td> </td> 12/10/2020 01:36:00 PM EDT [facility] BASIC METABOLIC PANEL CALCIUM TOTAL <td>BASIC METABOLI C PANEL</td><td>STAT</td><td>12/10/2020 9:36 AM EDT</td><td></td><td> </td> 12/10/2020 01:36:00 PM EDT [facility] ECG ROUTINE ECG W/LEAST 12 LDS W/I&R <td>POCT AMB EKG</td><td>Routine</td><td>12/09/2020 10:59 AM EDT</td><td> Shortness of breath</td><td> </td> 12/09/2020 02:59:00 PM EDT Shortness of breath [facility] Shortness of breath OFFICE OUTPATIENT NEW 30 MINUTES 11/26/2020 12:00:00 A M EDT [facility] ([facility]) Results ID Date Data Source US Duplex, Ext LOWER Veins, Unilat 06/20/2021 12:00:00 AM ED T eCW1 ([facility]) Name Value Range Interpretation Code Description Data Romi rce(s) Supporting Document(s) US Duplex, Ext LOWER Vein s, Unilat [facility]CW ([facility]) ID Date Data Source [id number] 05/21/2021 06:14:57 PM EDT [facility] INFORMATIONPatient MRN Name Date of Age Gend*PT [id number] DarrylAdrian Jesus 1970 50 years M ---PT Location Admission Date/Time Visit ID Attending Provider --- --- --- --- EPI ID CSN Admitting Provider [id number] ---Agree with the proposed plan. Name Value Range Interpretation Code Description Data Romi rce(s) Supporting Document(s) ID Date Data Source [id number] 05/08/2021 05:44:19 PM EDT [facility] INFORMATIONPatient MRN Name Date of Age Gend*PT [id number] Adrian Andrews 1970 50 years M IPPT Location Admission Date/Time Visit ID Attending [id number] 04/17/21 0518 --- --- EPI ID CSN Admitting Provider [id number] Chandler Corrigan MD([id number]) [place] [address] OPERATIVE REPORT OPNAME: ADRIAN ANDREWS#: [id number] #: [id number] ADMISSION DATE: 04/17/2021OB: 1970 SEX: M PT TYPE: I CardACCT #: [id number] CARE PHYSICIAN: MAURICIO CUELLARDATE OF OPERATION: 04/17/2021REOPERATIVE DIAGNOSES:Severe symptomatic mitral stenosis and mitral regurgitation.POSTOPERATIVE DIAGNOSES:Severe symptomatic mitral stenosis and mitral regurgitation.PROCEDURE:Minimally invasive mitral valve replacement consisting of #29 MedtronicMosaic bioprosthetic valve.SURGEON:Chandler Corrigan MDASSISTANT:CARIN Carmona.ANESTHESIA:General endotracheal.ANESTHESIOLOGIST:Rowan Macedo MDINDICATIONS FOR PROCEDURE:Patient is a pleasant 50-year-old gentleman with a possible history ofrheumatic fever in the past, who has developed [place] Heart Associationclass III symptoms and was found tohave evidence of at least moderate mitral stenosis and sehpwmvl-gm-zhxorwriiefp regurgitation. This was clearly a mixed picture [...] the Cardiovascular Intensive CareUnit.KALLIE Valdes/NAVEEN Job #: [id number] DOC #: [id number]: Primary Care Physician Toby Parish MD Name Value Range Interpretation Code Description Data Romi rce(s) Supporting Document(s) ID Date Data Source [id number] 04/23/2021 05:06:19 PM EDT [address] [address]Ns[place]u Name: ADRIAN ANDREWSDOB: 1970Sex: MOrdering Provider: RALPH BENITEZuthberonica Prov: RALPH FRANKLINReferralexsandra Provider: Procedure Performed: / XR CHEST PORTABLEExam Date: 04/23/2021 17:03MRN: [id number] Number: [id number] Class: InpatientAccount #: [id number] for Exam: F/U PneumothoraxTechnique: AP portable view obtained.Comparison: 04/23/2021Findings: Small right apical pneumothorax unchanged compared to prior exam.Small right pleural effusion. Airspace consolidation right lung base likely representing atelectasis. Small amount of atelectasis medial left lung base unchanged.Pacemaker unchanged.IMPRESSION: Small right apical pneumothorax unchanged compared to prior exam.Report electronically signed by: AZALEA BAL On 04/23/2021 5:06 PMWorkstation ID: [id number] Name Value Range Interpretation Code Description Data Romi rce(s) Supporting Document(s) ID Date Data Source [id number] 04/23/2021 03:35:06 PM EDT [facility] INFORMATIONPatient MRN Name Date of Age Gend*PT [id number] Adrian Andrews 1970 50 years M IPPT Location Admission Date/Time Visit ID Attending [id number] 04/17/21 0518 --- Chandler Corrigan MD([id number]) EPI ID CSN Admitting Provider [id number] Chandler Corrigan MD([id number]) Attestation signed by Rachel Drummond MD at 04/23/2021 3:35 PMI saw and evaluated the patient and reviewed the note. I agree with thehistory, physical and medical decision making.Signature: Rachel Drummond MDDate: April 23, 2021Time: 3:34 PM --Surgical Discharge SummaryAdrian Lee University HospitalN: [id number] date: 04/17/2021dmitting Physician: PRESLEY Valdesischarge date and time:Discharge Orders Placed(From admission, onward) NoneDischarge Physician: Ike Arreaga Diagnosis: Rheumatic mitral regurgitationSecondary Diagnoses:Active Hospital Problems Diagnosis Date Noted Rheumatic mitral regurgitation 12/09/2020 Added automatically from request for surgery [id number] Hospital ProblemsNo resolved problems to display.Discharge Medications: [...] with Dr. Corrigan in 1 week, with gill tender Dr. Parish in2-3 weeks, and with PCP [...] rce(s) Supporting Document(s) ID Date Data Source [id number] 04/23/2021 01:43:11 PM EDT [address] [address]Gvvutjp Name: ADRIAN SUMNERB: 1970Sex: MOrdering Provider: ADRIANA MONTEMAYORAuthorizing Prov: ADRIANA MONTEMAYORReferralexsandra Provider: Procedure Performed: / XR CHEST PA AND LATERALExam Date: 04/23/2021 13:39MRN: [id number] Number: [id number] Class: InpatientAccount #: [id number] for Exam: chest tube removal, PTXTechnique: PA [...] AZALEA BAL On 04/23/2021 1:43 PMWorkstation ID: [id number] Name Value Range Interpretation Code Description Data Romi rce(s) Supporting Document(s) ID Date Data Source [id number] 04/23/2021 02:57:39 PM EDT [facility] Name Value Range Interpretation Code Description Data Romi rce(s) Supporting Document(s) MAGNESIUM 2.6 mg/dL (1.7-2.4) H [facility] ID Date Data Source [id number] 04/23/2021 02:57:39 PM EDT [facility] Name Value Range Interpretation Code Description Data Romi rce(s) Supporting Document(s) SODIUM 137 mmol/L (136-145) [facility] POTASSIUM 4.5 mmol/L (3.6-5.2) [facility] CHLORIDE 103 mmol/L (100-108) [facility] CO2 26 mmol/L (22-31) [facility] ANION GAP 8 mmol/L (7-16) [facility] UREA NITROGEN 12 mg/dL (7-24) [facility] CREATININE 1.11 mg/dL (0.80-1.30) [facility] BUN/CREAT RATIO 10.8 RATIO (10.0-20.0) [facility] GLUCOSE 74 mg/dL (70-99) [facility] CALCIUM 8.9 mg/dL (8.4-10.2) [facility] GFR >60 ml/min/1.73m2 (>59) [facility] GFR ( AMER) >60 ml/min/1.73m2 (>59) [facility] GFR INTERPRETATION [facility] --NORMAL KIDNEY FUNCTION OR MILD DISEASE - GFR >OR= 60CHRONIC KIDNEY DISEASE - GFR 15 - 59RENAL FAILURE - GFR <15 Est. GFR calculation based on the MDRDstudy equation, which assumes a steadystate for creatinine. Est. GFR should notbe used for medication dosing. ID Date Data Source [id number] 04/23/2021 02:22:41 PM EDT [facility] Name Value Range Interpretation Code Description Data Romi rce(s) Supporting Document(s) WBC 7.5 10*3/uL (4.1-11.0) [facility] RBC 3.70 10*6/uL (4.60-6.10) L [facility] HGB 11.1 g/dL (13.5-18.0) L [facility] HCT 33.9 % (41.0-53.0) [facility] MCV 91.5 fL (80.0-95.0) [facility] MCH 29.8 pg (27.0-32.0) [facility] MCHC 32.6 g/dL (32.0-36.0) [facility] RDW 15.7 % (10.5-14.5) H [facility] PLT 171 10*3/uL (150-450) [facility] MPV 9.5 fL (7.1-10.7) [facility] ID Date Data Source [id number] 04/23/2021 02:15:53 PM EDT [facility] Name Value Range Interpretation Code Description Data Romi rce(s) Supporting Document(s) PT 13.4 s (9.2-11.9) H [facility] INR 1.30 [facility] SUGGESTED THERAPEUTIC RANGES USING INR F ORSTABILIZED ANTICOAGULATED PATIENTS:STANDARD DOSE THERAPY INR 2.0-3.0 DVT, PE, PREVENT DVT OR EMBOLISMHIGH DOSE THERAPY INR 2.5-3.5 PREVENT EMBOLISM FROM MECHANICAL HEART VALVE ID Date Data Source [id number] 04/23/2021 09:48:43 AM EDT [facility] Name Value Range Interpretation Code Description Data Romi rce(s) Supporting Document(s) EKG [facility] system DRKVZh7rVgJSOfZre8ZbKbMnJEAqUW9pkle9Q0X2lYIuD4UttZFda6dzW0YsN5ZfCIYsVDEXTG1CxUXr jb2 [file] mO+IJMUBfiMTdfF3mYru4sL5v6Op8YjLSluX2AKqTy4G7ockm4NFzRFDy0LpoJ1XdnW1A7NsoqOOk+COMMUTATOR INSPECTOR [file] y2rtI9f5dV1Ccda+CGE77EcKig2K39WNCCDjHn21fAQM1Cjtbx4oozTQPCtQDAQERwZrDCZXPZWBN+Сергей [file] integrity pS1qKtWwjl6uygL+B3vKX8cz9IYpQ0Cv8AD8P3GMunhw2qSbLsRc8sFR7oZaqUsdyaP+ot6bPft3SoXi Wc9dlLe8RfhQQllL+9PI+azUVznrWHoa/Z5t/i3hfLTqyl1dCynbt2K3rbQzuJ3v7TIB0/ls+89EqSJ2 1BU92/r877oG9fM553R00lm/9rby1t+xfxgGsf3Pxj [file] utrOElI818gUZzCnsaoKpMT/s+R+es3teXwjF [file] MDAwMDAgbiAKMDAwMDAwMTQwNiAwMDAwMCBuIAowMD TwEDG0ZgAfWGYnYHNiLF9jMsFgPFFcBRK9ZEsfIHOvYZYhskUPGCFeBQXkHYocANKtIXIwIRDiBVnrRW AzVQTjGNM9KPXgDQGhQH5vHlFgJOZsLOYxHYMwXaJ9MyVpTxXJlLCwbChxdsf8BTutO7l4KRNiPBirGO 4vlrCoJYUjXpemIi6srOK6FQXnBsiDNw8Lj3JcxeH0pkTvZxBpDsLgPelkDUYMXk== ID Date Data Source [id number] 04/23/2021 08:11:59 AM EDT [address] [id number] Name: ADRIAN ANDREWSB: 1970Sex: MOrdering Provider: ALVERTO Sneed Prov: ALVERTO Becker Provider: Procedure Performed: / XR CHEST PA AND LATERALExam Date: 04/23/2021 08:01MRN: [id number] Number: [id number] Class: InpatientAccount #: [id number] for Exam: ATX/effusionsTechnique: PA and lateral views [...] AZALEA PLAZA On 04/23/2021 8:11 AMWorkstation ID: [id number] - [id number] Name Value Range Interpretation Code Description Data Romi rce(s) Supporting Document(s) ID Date Data Source [id number] 04/22/2021 06:41:59 PM EDT [address] [id number] Name: ADRIAN SUMNERB: 1970Sex: MOrdering Provider: ALVERTO Sneed Prov: ALVERTO Becker Provider: Procedure Performed: / XR CHEST PORTABLEExam Date: 04/22/2021 18:39MRN: [id number] Number: [id number] Class: InpatientAccount #: [id number] for Exam: in PACU- s/p PPMTechnique: AP portable view obtained.Comparison: 04/22/2021 0659 hoursFindings: Pacemaker appears be in satisfactory position. No pneumothorax. Right-sided chest tube in place. Mild bibasilar atelectasis. Mediastinum unrema rkable.IMPRESSION: Pacemaker appears to be in satisfactory position. No pneumothorax. Mild bibasilar atelectasis.Report electronically signed by: AZALEA BAL On 04/22/2021 6:41 PMWorkstation ID: [id number] - [id number] Name Value Range Interpretation Code Description Data Romi rce(s) Supporting Document(s) ID Date Data Source [id number] 04/22/2021 06:20:30 PM EDT [facility] NT INFORMATIONPatient MRN Name Date of Age Gend*PT [id number] Adrian Andrews 1970 50 years M IPPT Location Admission Date/Time [facility] --- Chandler Corrigan MD([id number]) EPI ID CSN Admitting Provider [id number] Chandler Corrigan MD([id number])Permanent Pacemaker ImplantationCardiovascular and Thoracic Surgery Operative ReportDate of Procedure: 04/22/2021 Patient's PCP: URI HENDRICKSatient Name: Adrian Andrews 50 years maleDate of :1970MRN: [id number]: [id number]: [facility] [place] Note Date and Time: 04/22/2021 6:17 PMDate of Admission: 04/17/2021 5:18 AMSurgeon(s): Surgeon(s):Gray Negrete Physician:Dr. Chioperative diagnoses:1. Post Mitral Surgery Third Degree AV BlockPostoperative diagnoses:1. Post Mitral Surgery Third Degree AV BlockProcedure:1. DDD Dual Chamber Pacemaker ImplantationSurgeon:Rachel Drummond MDAnesthesia:Peter Provider(s):Anesthesiologist: Nick Senior MD; YUNIOR JenkinsRNA: Mercedes Beltran CRNAEstimated Blood Loss:20 ccStaff:OR Log Sorting Supervisor: Destinee Montemayor RN; Pepper Page RNRadiology Tech: Bernardo Bello Scrub Person: Jcarlos Patricia Nurse: Chayito Montes RNImplants:Medtronic Pacemaker Model Bowers serial # [id number] was placedAtrial Lead Model # 4076-52 Serial Number [id number]: Threshold AF, Jurfmpnuv149 Ohms.Ventricular Lead Model # 4076-58 Serial Number [id number]: Threshold 0.75 V,Impedance 817 Ohms.Description of Procedure:After [...] recovery room in stable condition.Rachel Drummond MD [facility] FACSCardiovascular Thoracic Surgery04/22/2021, 6:17 PM Name Value Range Interpretation Code Description Data Romi rce(s) Supporting Document(s) ID Date Data Source [id number] 04/22/2021 06:13:55 PM EDT [address] [id number] Name: ADRIAN SUMNERB: 1970Sex: MOrdering Provider: RACHEL DRUMMONDAuthorizing Prov: RACHEL DRUMMONDReferring Provider: Procedure Performed: / XR FLUORO PACEMAKER INSERTExam Date: 04/22/2021 18:10MRN: [id number] Number: [id number] Class: InpatientAccount #: [id number] for Exam: heart blockTechnique: Fluoroscopy with no digital spot images obtained.Fluoroscopy time: 103 SecondsNumber of Spot Images:Comparison: NoneFindings: Fluoroscopy performed during pacemaker insertion procedure.IMPRESSION: Fluoroscopy performed during pacemaker insertion procedure. One image obtained.Report electronically signed by: AZALEA BAL On 04/22/2021 6:13 PMWorkstation ID: [id number] Name Value Range Interpretation Code Description Data Romi rce(s) Supporting Document(s) ID Date Data Source [id number] 04/22/2021 04:45:15 PM EDT [facility] NT INFORMATIONPatient MRN Name Date of Age Gend*PT [id number] Adrian Andrews 1970 50 years M IPPT Location Admission Date/Time Visit ID Attending [id number] 04/17/21 0518 --- Chandler Corrigan MD([id number]) EPI ID CSN Admitting Provider [id number] Chandler Corrigan MD([id number])H&P and daily progress notes since admission reviewed. Changes to the patient'scondition since admission have been documented in the progress notes and noted.Rachel Drummond MD4:44 PM Name Value Range Interpretation Code Description Data Romi rce(s) Supporting Document(s) ID Date Data Source [id number] 04/22/2021 06:22:24 PM EDT Geeta Arnold [facility] SPEC EXP DATE 04/25/2021ATI ENT ABO/Rh O NEGATIVEANTIBODY SCREEN NEGATIVETESTING SITE PERFORMED AT [address] [place] [id number] BANK COMMENT BLOOD TYPE CONFIRMED. Name Value Range Interpretation Code Description Data Romi rce(s) Supporting Document(s) TYPE AND SCREEN [facility] [place] [facility] ID Date Data Source [id number] 04/22/2021 01:55:00 PM EDT [facility] Name Value Range Interpretation Code Description Data Romi rce(s) Supporting Document(s) SARS coronavirus 2 RNA [Presence] in Res piratory specimen by LEON with probe detection NOT DETECTED [place]SDOH This lab was reported by [facility]. ID Date Data Source [id number] 04/22/2021 04:27:15 PM EDT [facility] Name Value Range Interpretation Code Description Data Romi rce(s) Supporting Document(s) SPECIMEN DESCRIPTION [facility] INFLUENZA A (NEG) [facility] INFLUENZA B (NEG) [facility] RSV (NEG) [facility] COMMENT [facility] THE [place] FDA HAS MADE THIS TEST AVAILABL EUNDER AN EMERGENCY USE AUTHORIZATION(EUA) FOR THE DETECTION AND/OR DIAGNOSISOF THE VIRUS THAT CAUSES COVID-19.PERFORMED AT [address] [place] [id number] COVID19 RESULT (NDET) [facility] THIS ASSAY AMPLIFIES AND DETECTSTHE TARG ET RNA USING REAL-TIME PCR.TESTING PERFORMED ON [employer] GENEXPERTNEGATIVE 2019_NCOV RT-PCR RESULTS DONOT PRECLUDE 2019_NCOV INFECTION ANDSHOULD NOT BE USED THE SOLE BASISFOR PATIENT MANAGEMENT DECISIONS. FIRST TEST [facility] EMPLOYED IN HLTHCARE [facility] SYMPTOMATIC [facility] DATE OF SYMPT ONSET [facility] HOSPITALIZED [facility] ICU [facility] CONGREGATE CARE SET [facility] ID Date Data Source [id number] 04/22/2021 10:33:39 AM EDT [facility] Name Value Range Interpretation Code Description Data Romi rce(s) Supporting Document(s) POTASSIUM 4.3 mmol/L (3.6-5.2) [facility] ID Date Data Source [id number] 04/22/2021 07:54:56 AM EDT [address] [id number] Name: ADRIAN SUMNERB: 1970Sex: MOrdering Provider: MAURICIO SAUCEDAAuthorimarta Prov: MAURICIO SAUCEDAReferralexsandra Provider: Procedure Performed: / XR CHEST PORTABLEExam Date: 04/22/2021 07:05MRN: [id number] Number: [id number] Class: InpatientAccount #: [id number] for Exam: PneumoniaTechnique: AP portable view obtained.Comparison: [...] AZALEA PLAZA On 04/22/2021 7:54 AMWorkstation ID: [id number] Name Value Range Interpretation Code Description Data Romi rce(s) Supporting Document(s) ID Date Data Source [id number] 04/22/2021 04:41:34 AM EDT [facility] Name Value Range Interpretation Code Description Data Romi rce(s) Supporting Document(s) MAGNESIUM 2.0 mg/dL (1.7-2.4) [facility] ID Date Data Source [id number] 04/22/2021 04:41:34 AM EDT [facility] Name Value Range Interpretation Code Description Data Romi rce(s) Supporting Document(s) SODIUM 139 mmol/L (136-145) [facility] POTASSIUM 4.0 mmol/L (3.6-5.2) [facility] CHLORIDE 107 mmol/L (100-108) [facility] CO2 27 mmol/L (22-31) [facility] ANION GAP 5 mmol/L (7-16) L [facility] UREA NITROGEN 11 mg/dL (7-24) [facility] CREATININE 0.92 mg/dL (0.80-1.30) [facility] BUN/CREAT RATIO 12.0 RATIO (10.0-20.0) [facility] GLUCOSE 89 mg/dL (70-99) [facility] CALCIUM 8.4 mg/dL (8.4-10.2) [facility] GFR >60 ml/min/1.73m2 (>59) [facility] GFR ( AMER) >60 ml/min/1.73m2 (>59) [facility] GFR INTERPRETATION [facility] --NORMAL KIDNEY FUNCTION OR MILD DISEASE - GFR >OR= 60CHRONIC KIDNEY DISEASE - GFR 15 - 59RENAL FAILURE - GFR <15 Est. GFR calculation based on the MDRDstudy equation, which assumes a steadystate for creatinine. Est. GFR should notbe used for medication dosing. ID Date Data Source [id number] 04/22/2021 04:05:45 AM EDT [facility] Name Value Range Interpretation Code Description Data Romi rce(s) Supporting Document(s) WBC 6.9 10*3/uL (4.1-11.0) [facility] [place] RBC 3.27 10*6/uL (4.60-6.10) L [facility] HGB 9.8 g/dL (13.5-18.0) L [facility] HCT 30.0 % (41.0-53.0) L [facility] MCV 91.6 fL (80.0-95.0) [facility] MCH 30.0 pg (27.0-32.0) [facility] MCHC 32.7 g/dL (32.0-36.0) [facility] RDW 15.9 % (10.5-14.5) H [facility] PLT 127 10*3/uL (150-450) L [facility] MPV 8.8 fL (7.1-10.7) [facility] ID Date Data Source [id number] 04/22/2021 04:20:20 AM EDT [facility] Name Value Range Interpretation Code Description Data Romi rce(s) Supporting Document(s) PT 16.2 s (9.2-11.9) H [facility] INR 1.58 [facility] SUGGESTED THERAPEUTIC RANGES USING INR F ORSTABILIZED ANTICOAGULATED PATIENTS:STANDARD DOSE THERAPY INR 2.0-3.0 DVT, PE, PREVENT DVT OR EMBOLISMHIGH DOSE THERAPY INR 2.5-3.5 PREVENT EMBOLISM FROM MECHANICAL HEART VALVE ID Date Data Source [id number] 04/21/2021 04:14:38 AM EDT [facility] Name Value Range Interpretation Code Description Data Romi rce(s) Supporting Document(s) PT 29.8 s (9.2-11.9) H [facility] INR 3.02 [facility] SUGGESTED THERAPEUTIC RANGES USING INR F ORSTABILIZED ANTICOAGULATED PATIENTS:STANDARD DOSE THERAPY INR 2.0-3.0 DVT, PE, PREVENT DVT OR EMBOLISMHIGH DOSE THERAPY INR 2.5-3.5 PREVENT EMBOLISM FROM MECHANICAL HEART VALVE ID Date Data Source [id number] 04/21/2021 04:36:06 AM EDT [facility] Name Value Range Interpretation Code Description Data Romi rce(s) Supporting Document(s) SODIUM 138 mmol/L (136-145) [facility] POTASSIUM 4.2 mmol/L (3.6-5.2) [facility] CHLORIDE 105 mmol/L (100-108) [facility] CO2 26 mmol/L (22-31) [facility] ANION GAP 7 mmol/L (7-16) [facility] UREA NITROGEN 12 mg/dL (7-24) [facility] CREATININE 0.85 mg/dL (0.80-1.30) [facility] BUN/CREAT RATIO 14.1 RATIO (10.0-20.0) [facility] GLUCOSE 98 mg/dL (70-99) [facility] CALCIUM 8.0 mg/dL (8.4-10.2) L [facility] GFR >60 ml/min/1.73m2 (>59) [facility] GFR ( AMER) >60 ml/min/1.73m2 (>59) [facility] GFR INTERPRETATION [facility] --NORMAL KIDNEY FUNCTION OR MILD DISEASE - GFR >OR= 60CHRONIC KIDNEY DISEASE - GFR 15 - 59RENAL FAILURE - GFR <15 Est. GFR calculation based on the MDRDstudy equation, which assumes a steadystate for creatinine. Est. GFR should notbe used for medication dosing. ID Date Data Source [id number] 04/21/2021 04:08:43 AM EDT [facility] Name Value Range Interpretation Code Description Data Romi rce(s) Supporting Document(s) WBC 8.5 10*3/uL (4.1-11.0) [facility] [place] RBC 3.35 10*6/uL (4.60-6.10) L [facility] HGB 10.2 g/dL (13.5-18.0) L [facility] HCT 30.8 % (41.0-53.0) L [facility] MCV 92.1 fL (80.0-95.0) [facility] MCH 30.4 pg (27.0-32.0) [facility] MCHC 33.1 g/dL (32.0-36.0) [facility] RDW 16.5 % (10.5-14.5) H [facility] PLT 126 10*3/uL (150-450) L [facility] MPV 9.1 fL (7.1-10.7) [facility] ID Date Data Source [id number] 04/20/2021 12:04:24 PM EDT [address] [id number] Name: ADRIAN SUMNERB: 1970Sex: MOrdering Provider: RON Renteria Prov: RON Ernst Provider: Procedure Performed: / XR CHEST PORTABLEExam Date: 04/20/2021 11:57MRN: [id number] Number: [id number] Class: InpatientAccount #: [id number] for Exam: ptx, CT to H2O sealTechnique: [...] AZALEA BAL On 04/20/2021 12:04 PMWorkstation ID: [id number] Name Value Range Interpretation Code Description Data Romi rce(s) Supporting Document(s) ID Date Data Source [id number] 04/20/2021 12:37:07 PM EDT [facility] Name Value Range Interpretation Code Description Data Romi rce(s) Supporting Document(s) POTASSIUM 4.4 mmol/L (3.6-5.2) [facility] ID Date Data Source [id number] 04/20/2021 07:54:28 AM EDT [facility] Name Value Range Interpretation Code Description Data Romi rce(s) Supporting Document(s) POC NOVA GLU 115 mg/dL (70-99) H [facility] [place] [facility]FORMED BY [facility] ID Date Data Source [id number] 04/20/2021 09:26:51 AM EDT [facility] Name Value Range Interpretation Code Description Data Romi rce(s) Supporting Document(s) TOTAL PROTEIN 6.6 g/dL (6.4-8.2) [facility] ALBUMIN 3.0 g/dL (3.5-4.6) L [facility] GLOBULIN 3.6 g/dL (2.7-4.3) [facility] ALB/GLOB RATIO 0.8 RATIO [facility] BILIRUBIN,TOTAL 0.4 mg/dL (0.0-1.0) [facility] PLEASE NOTE:Total bilirubin results may be falselyelevated in patients taking Eltrombopag. BILIRUBIN,CONJUGATED 0.2 mg/dL (0.0-0.3) [facility] BILIRUBIN,UNCONJ. 0.2 mg/dL (0.0-0.7) [facility] ALKALINE PHOSPHATASE 77 U/L (45-117) [facility] AST (SGOT) 23 U/L (11-39) [facility] ALT (SGPT) 16 U/L (12-78) [facility] ID Date Data Source [id number] 04/20/2021 08:35:21 AM EDT [facility] Name Value Range Interpretation Code Description Data Romi rce(s) Supporting Document(s) POTASSIUM 3.9 mmol/L (3.6-5.2) [facility] ID Date Data Source [id number] 04/20/2021 03:54:21 AM EDT [facility] Name Value Range Interpretation Code Description Data Romi rce(s) Supporting Document(s) MAGNESIUM 2.4 mg/dL (1.7-2.4) [facility] ID Date Data Source [id number] 04/20/2021 03:54:21 AM EDT [facility] Name Value Range Interpretation Code Description Data Romi rce(s) Supporting Document(s) SODIUM 140 mmol/L (136-145) [facility] POTASSIUM 3.9 mmol/L (3.6-5.2) [facility] CHLORIDE 109 mmol/L (100-108) H [facility] CO2 28 mmol/L (22-31) [facility] ANION GAP 3 mmol/L (7-16) L [facility] UREA NITROGEN 19 mg/dL (7-24) [facility] CREATININE 0.84 mg/dL (0.80-1.30) [facility] BUN/CREAT RATIO 22.6 RATIO (10.0-20.0) H [facility] GLUCOSE 97 mg/dL (70-99) [facility] CALCIUM 7.9 mg/dL (8.4-10.2) L [facility] GFR >60 ml/min/1.73m2 (>59) [facility] GFR ( AMER) >60 ml/min/1.73m2 (>59) [facility] GFR INTERPRETATION [facility] --NORMAL KIDNEY FUNCTION OR MILD DISEASE - GFR >OR= 60CHRONIC KIDNEY DISEASE - GFR 15 - 59RENAL FAILURE - GFR <15 Est. GFR calculation based on the MDRDstudy equation, which assumes a steadystate for creatinine. Est. GFR should notbe used for medication dosing. ID Date Data Source [id number] 04/20/2021 03:35:37 AM EDT [facility] Name Value Range Interpretation Code Description Data Romi rce(s) Supporting Document(s) CALCIUM IONIZED 5.00 mg/dL (4.64-5.28) [facility] IONIZED CALCIUM NORMALIZED TO PH 7.40 AN D 37 DEGREES C. ID Date Data Source [id number] 04/20/2021 03:28:56 AM EDT [facility] Name Value Range Interpretation Code Description Data Romi rce(s) Supporting Document(s) PT 27.7 s (9.2-11.9) H [facility] INR 2.80 [facility] SUGGESTED THERAPEUTIC RANGES USING INR F ORSTABILIZED ANTICOAGULATED PATIENTS:STANDARD DOSE THERAPY INR 2.0-3.0 DVT, PE, PREVENT DVT OR EMBOLISMHIGH DOSE THERAPY INR 2.5-3.5 PREVENT EMBOLISM FROM MECHANICAL HEART VALVE ID Date Data Source [id number] 04/20/2021 02:59:42 AM EDT [facility] Name Value Range Interpretation Code Description Data Romi rce(s) Supporting Document(s) WBC 8.5 10*3/uL (4.1-11.0) [facility] [place] RBC 3.23 10*6/uL (4.60-6.10) L [facility] HGB 9.8 g/dL (13.5-18.0) L [facility] HCT 29.5 % (41.0-53.0) L [facility] MCV 91.2 fL (80.0-95.0) [facility] MCH 30.4 pg (27.0-32.0) [facility] MCHC 33.4 g/dL (32.0-36.0) [facility] RDW 16.1 % (10.5-14.5) H [facility] PLT 115 10*3/uL (150-450) L [facility] MPV 9.0 fL (7.1-10.7) [facility] ID Date Data Source [id number] 04/19/2021 05:57:39 PM EDT [facility] Name Value Range Interpretation Code Description Data Romi rce(s) Supporting Document(s) POC NOVA GLU 105 mg/dL (70-99) H [facility] [place] [facility] BY [facility] ID Date Data Source [id number] 04/19/2021 02:40:19 PM EDT [address] [id number] Name: ADRIAN SUMNERB: 1970Sex: MOrdering Provider: RON Renteria Prov: RON Ernst Provider: Procedure Performed: / XR CHEST PORTABLEExam Date: 04/19/2021 13:24MRN: [id number] Number: [id number] Class: InpatientAccount #: [id number] for Exam: PTX, CT clampedTechnique: AP portable view obtained.Comparison: 04/17/2021Findings: Right-sided chest tubes remain in place. Prichard-Lissett catheter and nasogastric tube endotracheal tube been removed. There is now a large right-sided pneumothorax. Left lung is clear.IMPRESSION: New large right-sided pneumothorax status post chest tube clamping.Findings communicated utilizing critical results protocol.Report electronically signed by: GARCIA BLACKMAN On 04/19/2021 2:40 PMWorkstation ID: [id number] - [id number] Name Value Range Interpretation Code Description Data Romi rce(s) Supporting Document(s) ID Date Data Source [id number] 04/19/2021 01:02:28 PM EDT [facility] Name Value Range Interpretation Code Description Data Romi rce(s) Supporting Document(s) POC NOVA GLU 104 mg/dL (70-99) H [facility] [place] [facility] ID Date Data Source [id number] 04/19/2021 08:26:25 AM EDT [facility] Name Value Range Interpretation Code Description Data Romi rce(s) Supporting Document(s) POC NOVA GLU 109 mg/dL (70-99) H [facility] [place] [facility] ID Date Data Source [id number] 04/19/2021 03:22:11 AM EDT [facility] Name Value Range Interpretation Code Description Data Romi rce(s) Supporting Document(s) CALCIUM IONIZED 4.92 mg/dL (4.64-5.28) [facility] IONIZED CALCIUM NORMALIZED TO PH 7.40 AN D 37 DEGREES C. ID Date Data Source [id number] 04/19/2021 03:18:21 AM EDT [facility] Name Value Range Interpretation Code Description Data Romi rce(s) Supporting Document(s) MAGNESIUM 2.1 mg/dL (1.7-2.4) [facility] ID Date Data Source [id number] 04/19/2021 03:18:21 AM EDT [facility] Name Value Range Interpretation Code Description Data Romi rce(s) Supporting Document(s) SODIUM 134 mmol/L (136-145) L [facility] POTASSIUM 4.4 mmol/L (3.6-5.2) [facility] CHLORIDE 102 mmol/L (100-108) [facility] CO2 26 mmol/L (22-31) [facility] ANION GAP 6 mmol/L (7-16) L [facility] UREA NITROGEN 16 mg/dL (7-24) [facility] CREATININE 0.83 mg/dL (0.80-1.30) [facility] BUN/CREAT RATIO 19.3 RATIO (10.0-20.0) [facility] GLUCOSE 117 mg/dL (70-99) H [facility] CALCIUM 8.3 mg/dL (8.4-10.2) L [facility] GFR >60 ml/min/1.73m2 (>59) [facility] GFR ( AMER) >60 ml/min/1.73m2 (>59) [facility] GFR INTERPRETATION [facility] --NORMAL KIDNEY FUNCTION OR MILD DISEASE - GFR >OR= 60CHRONIC KIDNEY DISEASE - GFR 15 - 59RENAL FAILURE - GFR <15 Est. GFR calculation based on the MDRDstudy equation, which assumes a steadystate for creatinine. Est. GFR should notbe used for medication dosing. ID Date Data Source [id number] 04/19/2021 03:07:30 AM EDT [facility] Name Value Range Interpretation Code Description Data Romi rce(s) Supporting Document(s) PT 13.2 s (9.2-11.9) H [facility] INR 1.27 [facility] SUGGESTED THERAPEUTIC RANGES USING INR F ORSTABILIZED ANTICOAGULATED PATIENTS:STANDARD DOSE THERAPY INR 2.0-3.0 DVT, PE, PREVENT DVT OR EMBOLISMHIGH DOSE THERAPY INR 2.5-3.5 PREVENT EMBOLISM FROM MECHANICAL HEART VALVE ID Date Data Source [id number] 04/19/2021 02:58:50 AM EDT [facility] Name Value Range Interpretation Code Description Data Romi rce(s) Supporting Document(s) WBC 9.3 10*3/uL (4.1-11.0) [facility] [place] RBC 3.49 10*6/uL (4.60-6.10) L [facility] HGB 10.6 g/dL (13.5-18.0) L [facility] HCT 31.8 % (41.0-53.0) L [facility] MCV 91.1 fL (80.0-95.0) [facility] MCH 30.3 pg (27.0-32.0) [facility] MCHC 33.3 g/dL (32.0-36.0) [facility] RDW 16.0 % (10.5-14.5) H [facility] PLT 118 10*3/uL (150-450) L [facility] MPV 9.0 fL (7.1-10.7) [facility] ID Date Data Source [id number] 04/18/2021 06:41:39 PM EDT [facility] Name Value Range Interpretation Code Description Data Romi rce(s) Supporting Document(s) POC NOVA GLU 123 mg/dL (70-99) H [facility] [place] [facility] ID Date Data Source [id number] 04/18/2021 12:41:59 PM EDT [facility] Name Value Range Interpretation Code Description Data Romi rce(s) Supporting Document(s) POC NOVA GLU 121 mg/dL (70-99) H [facility] [place] [facility] ID Date Data Source [id number] 04/18/2021 09:52:51 AM EDT [facility] Name Value Range Interpretation Code Description Data Romi rce(s) Supporting Document(s) POC NOVA GLU 129 mg/dL (70-99) H [facility] [place] [facility] ID Date Data Source [id number] 04/18/2021 11:32:10 AM EDT [facility] Name Value Range Interpretation Code Description Data Romi rce(s) Supporting Document(s) MAGNESIUM 2.5 mg/dL (1.7-2.4) H [facility] ID Date Data Source [id number] 04/18/2021 11:32:10 AM EDT [facility] Name Value Range Interpretation Code Description Data Romi rce(s) Supporting Document(s) POTASSIUM 4.8 mmol/L (3.6-5.2) [facility] ID Date Data Source [id number] 04/18/2021 06:12:19 AM EDT [facility] Name Value Range Interpretation Code Description Data Romi rce(s) Supporting Document(s) POC NOVA GLU 152 mg/dL (70-99) H [facility] [place] [facility] ID Date Data Source [id number] 04/18/2021 03:08:33 AM EDT [facility] Name Value Range Interpretation Code Description Data Romi rce(s) Supporting Document(s) POC NOVA GLU 139 mg/dL (70-99) H [facility] [place] [facility] ID Date Data Source [id number] 04/18/2021 04:50:13 AM EDT [facility] Name Value Range Interpretation Code Description Data Romi rce(s) Supporting Document(s) CALCIUM IONIZED 4.84 mg/dL (4.64-5.28) [facility] IONIZED CALCIUM NORMALIZED TO PH 7.40 AN D 37 DEGREES C. ID Date Data Source [id number] 04/18/2021 04:44:33 AM EDT [facility] Name Value Range Interpretation Code Description Data Romi rce(s) Supporting Document(s) SODIUM 137 mmol/L (136-145) [facility] POTASSIUM 4.1 mmol/L (3.6-5.2) [facility] CHLORIDE 105 mmol/L (100-108) [facility] CO2 24 mmol/L (22-31) [facility] ANION GAP 8 mmol/L (7-16) [facility] UREA NITROGEN 14 mg/dL (7-24) [facility] CREATININE 0.84 mg/dL (0.80-1.30) [facility] BUN/CREAT RATIO 16.7 RATIO (10.0-20.0) [facility] GLUCOSE 121 mg/dL (70-99) H [facility] CALCIUM 7.9 mg/dL (8.4-10.2) L [facility] GFR >60 ml/min/1.73m2 (>59) [facility] GFR ( AMER) >60 ml/min/1.73m2 (>59) [facility] GFR INTERPRETATION [facility] --NORMAL KIDNEY FUNCTION OR MILD DISEASE - GFR >OR= 60CHRONIC KIDNEY DISEASE - GFR 15 - 59RENAL FAILURE - GFR <15 Est. GFR calculation based on the MDRDstudy equation, which assumes a steadystate for creatinine. Est. GFR should notbe used for medication dosing. ID Date Data Source [id number] 04/18/2021 04:44:33 AM EDT [facility] Name Value Range Interpretation Code Description Data Romi rce(s) Supporting Document(s) MAGNESIUM 2.0 mg/dL (1.7-2.4) [facility] ID Date Data Source [id number] 04/18/2021 04:13:28 AM EDT [facility] Name Value Range Interpretation Code Description Data Romi rce(s) Supporting Document(s) PT 12.1 s (9.2-11.9) H [facility] INR 1.16 [facility] SUGGESTED THERAPEUTIC RANGES USING INR F ORSTABILIZED ANTICOAGULATED PATIENTS:STANDARD DOSE THERAPY INR 2.0-3.0 DVT, PE, PREVENT DVT OR EMBOLISMHIGH DOSE THERAPY INR 2.5-3.5 PREVENT EMBOLISM FROM MECHANICAL HEART VALVE ID Date Data Source [id number] 04/18/2021 04:10:04 AM EDT [facility] Name Value Range Interpretation Code Description Data Romi rce(s) Supporting Document(s) WBC 8.1 10*3/uL (4.1-11.0) [facility] RBC 3.49 10*6/uL (4.60-6.10) L [facility] HGB 10.5 g/dL (13.5-18.0) L [facility] HCT 32.0 % (41.0-53.0) L [facility] MCV 91.5 fL (80.0-95.0) [facility] MCH 30.1 pg (27.0-32.0) [facility] MCHC 32.9 g/dL (32.0-36.0) [facility] RDW 15.9 % (10.5-14.5) H [facility] PLT 130 10*3/uL (150-450) L [facility] MPV 8.6 fL (7.1-10.7) [facility] ID Date Data Source [id number] 04/18/2021 12:30:41 AM EDT [facility] Name Value Range Interpretation Code Description Data Romi rce(s) Supporting Document(s) POC NOVA GLU 130 mg/dL (70-99) H [facility]FOR[facility] BY [facility] ID Date Data Source [id number] 04/17/2021 10:03:38 PM EDT [facility] Name Value Range Interpretation Code Description Data Romi rce(s) Supporting Document(s) POC NOVA GLU 122 mg/dL (70-99) H [facility] ID Date Data Source [id number] 04/17/2021 10:32:33 PM EDT [facility] Name Value Range Interpretation Code Description Data Romi rce(s) Supporting Document(s) POTASSIUM 3.9 mmol/L (3.6-5.2) [facility] ID Date Data Source [id number] 04/17/2021 10:20:50 PM EDT [facility] Name Value Range Interpretation Code Description Data Romi rce(s) Supporting Document(s) WBC 7.3 10*3/uL (4.1-11.0) [facility] RBC 3.51 10*6/uL (4.60-6.10) L [facility] HGB 10.5 g/dL (13.5-18.0) L [facility] HCT 32.4 % (41.0-53.0) L [facility] MCV 92.3 fL (80.0-95.0) [facility] MCH 29.9 pg (27.0-32.0) [facility] MCHC 32.4 g/dL (32.0-36.0) [facility] RDW 16.0 % (10.5-14.5) H [facility] PLT 134 10*3/uL (150-450) L [facility] MPV 8.7 fL (7.1-10.7) [facility] ID Date Data Source [id number] 04/17/2021 07:58:36 PM EDT [facility] Name Value Range Interpretation Code Description Data Romi rce(s) Supporting Document(s) POC NOVA GLU 133 mg/dL (70-99) H [facility] ID Date Data Source [id number] 04/17/2021 05:59:37 PM EDT [facility] Name Value Range Interpretation Code Description Data Romi rce(s) Supporting Document(s) POC NOVA GLU 136 mg/dL (70-99) H [facility] ID Date Data Source [id number] 04/17/2021 05:28:31 PM EDT [facility] Name Value Range Interpretation Code Description Data Romi rce(s) Supporting Document(s) POC SOURCE [facility] PUNCTURE SITE [facility] O2 THERAPY [facility] POC FIO2 40 [facility] KB TEST [facility] MODE [facility] PEEP/MAP 8 CM H2O [facility] PRESSURE SUPPORT 8 CM H2O [facility] SP RATE 17 BMP [facility] POC PH 7.37 pH (7.35-7.45) [facility] POC PCO2 40.3 MMHG (32.0-48.0) [facility] POC PO2 60 MMHG (83-108) L [facility] POC SAT O2 90 % (95-99) L [facility] POC BASE DEFICIT 2 MMOL/L (0-2) [facility] POC HCO3 23.1 MMOL/L (21.0-29.0) [facility] POC TOTAL CO2 24 MMOL/L (23.0-32.0) [facility] ID Date Data Source [id number] 04/17/2021 04:02:12 PM EDT [facility] Name Value Range Interpretation Code Description Data Romi rce(s) Supporting Document(s) POC NOVA GLU 131 mg/dL (70-99) H [facility] ID Date Data Source [id number] 04/17/2021 05:41:01 PM EDT [facility] Name Value Range Interpretation Code Description Data Romi rce(s) Supporting Document(s) POTASSIUM 4.6 mmol/L (3.6-5.2) [facility] ID Date Data Source [id number] 04/17/2021 02:30:31 PM EDT [facility] Name Value Range Interpretation Code Description Data Romi rce(s) Supporting Document(s) POC NOVA GLU 131 mg/dL (70-99) H [facility] ID Date Data Source [id number] 04/17/2021 01:32:24 PM EDT [facility] Name Value Range Interpretation Code Description Data Romi rce(s) Supporting Document(s) POC NOVA GLU 112 mg/dL (70-99) H [facility] PERFORMED BY [facility] ID Date Data Source [id number] 04/17/2021 12:32:32 PM EDT [facility] Name Value Range Interpretation Code Description Data Romi rce(s) Supporting Document(s) POC NOVA GLU 115 mg/dL (70-99) H [facility] [place] [facility] ID Date Data Source [id number] 04/17/2021 12:03:59 PM EDT [address] [address]Nasc[place] Name: ADRIAN SUMNERB: 1970Sex: MOrdering Provider: RON Hagenhoantonio Prov: RON LINKRefjosé antonio Provider: Procedure Performed: / XR CHEST PORTABLEExam Date: 04/17/2021 11:45MRN: [id number] Number: [id number] Class: InpatientAccount #: [id number] for Exam: Evaluate for Prichard Lissett catheter placement and/or endotracheal tubeTechnique: AP portable view obtained.Comparison: NoneFindings: The tip of the ET tube is 4.3 cm above the francine. The NG tube is coiled in the esophagus with its tip in the proximal esophagus. The tip of the Prichard-Lissett catheter is in the proximal right pulmonary artery. Right-sided chest tubes are present. There is probable mild interstitial pulmonary edema. The lungs are otherwise clear. No pleural effusion or pneumothorax is seen. The cardiomediastinal silhouette is unremarkable.IMPRESSION: 1. NG tube is coiled in the esophagus. Repositioning is recommended.2. Appropriate positions of ET tube and Prichard-Lissett catheter.3. Probable mild interstitial pulmonary edema.This finding was communicated via the departmental critical results reporting protocol.Report electronically signed by: MERCEDES PEÑA On 04/17/2021 12:03 PMWorkstation ID: [id number] Name Value Range Interpretation Code Description Data Romi rce(s) Supporting Document(s) ID Date Data Source [id number] 04/17/2021 12:03:01 PM EDT [facility] Name Value Range Interpretation Code Description Data Romi rce(s) Supporting Document(s) POC SOURCE [facility] CP BYPASS [facility] POC MIX ABRRY PO2 46 mm[Hg] (35-45) H [facility] POC MIX BARRY SO2 77 % (60-80) [facility] P[facility] HCT 31 % (41.0-53.0) L [facility] ID Date Data Source [id number] 04/17/2021 12:03:01 PM EDT [facility] Name Value Range Interpretation Code Description Data Romi rce(s) Supporting Document(s) POC SOURCE [facility] PUNCTURE SITE [facility] O2 THERAPY [facility] POC FIO2 80 [facility] KB TEST [facility] MODE [facility] TIDAL VOLUME 550 mL [facility] RATE 18 BPM [facility] PEEP/MAP 10 CM H2O [facility] PRESSURE SUPPORT 12 CM H2O [facility] SP RATE 0 BMP [facility] POC PH 7.33 pH (7.35-7.45) L [facility] POC PCO2 51.0 MMHG (32.0-48.0) H [facility] POC PO2 228 MMHG (83-108) H [facility] POC SAT O2 100 % (95-99) H [facility] POC BASE EXCESS 0 MMOL/L (0-3) [facility] POC HCO3 26.8 MMOL/L (21.0-29.0) [facility] POC TOTAL CO2 28 MMOL/L (23.0-32.0) [facility] ID Date Data Source [id number] 04/17/2021 11:30:10 AM EDT [facility] Name Value Range Interpretation Code Description Data Romi rce(s) Supporting Document(s) EKG Health system NTYLMm8yDqAJFbDnb4DlAnRpYJQbWA4vvot2B5T3hRHxT5VitEFay2ndM7CyB8DuPTMaBFRLNU2MrBVb jb2 [file] eILNU4dB8E2gT9KKi7a/1P3bYCWcM8T02cC+SGyAkmmmTRy84VQjLv7p1nl+J Carlos/qCUJO079U2P1/J [file] oFZyZz+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 [file] AwMDAwMDEyOTcgMDAwMDAgbiAKMDAwMDAwMTQwNiAw WDGjUDDkTYijPUVhJJQ8FCHnQHOzJNJdDQ9wZmPaIZDuLHI5QTccSOFdJXJthiWWHZFyXBJpBElmVGFh OCYnEDVoMJfjFZSwPJZpWDH1TPDaAPLqYD5nCdFkGZFuUIUdRYKaGbI9FlOjOuZUhSMnqCjqjix3PKyl I3z3ZJLpINggQL1vqiSmNWHwTvrcYu9sxYH1LYWxSovKQm1Af2KuocI1zlCwSsOsZCe9TghuNWEKDj== ID Date Data Source [id number] 04/17/2021 11:14:48 AM EDT [facility] Name Value Range Interpretation Code Description Data Romi rce(s) Supporting Document(s) &PDF Health system UZPIGm5qEsRRVhTz98/KMThpTBXmq7WiIJsyWBc9JHblXMScF3GcfHshAWJJJwZdZ4FRIOSvZSEiIKih pYy [file] ICAgICAgICAgICAgICAgICAgICAgICAgICAgICAgICAgICAgICAgICAgICAgICAgICAgICAgICAgICAg ICAgICAgICAgICAgDQogICAgICAgICAgICAgICAgIC AgICAgICAgICAgICAgICAgICAgICAgICAgICAgICAgICAgICAgICAgICAgICAgICAgICAgICAgICAgIC AgICAgICAgICAgICAgICAgICAgICAgDQogICAgICAgICAgICAgICAgICAgICAgICAgICAgICAgICAgIC AgICAgICAgICAgICAgICAgICAgICAgICAgICAgICAg ICAgICAgICAgICAgICAgICAgICAgICAgICAgICAgICAgDQogICAgICAgICAgICAgICAgICAgICAgICAg ICAgICAgICAgICAgICAgICAgICAgICAgICAgICAgICAgICAgICAgICAgICAgICAgICAgICAgICAgICAg ICAgICAgICAgICAgICAgDQogICAgICAgICAgICAgIC AgICAgICAgICAgICAgICAgICAgICAgICAgICAgICAgICAgICAgICAgICAgICAgICAgICAgICAgICAgIC AgICAgICAgICAgICAgICAgICAgICAgICAgDQogICAgICAgICAgICAgICAgICAgICAgICAgICAgICAgIC AgICAgICAgICAgICAgICAgICAgICAgICAgICAgICAg ICAgICAgICAgICAgICAgICAgICAgICAgICAgICAgICAgICAgDQogICAgICAgICAgICAgICAgICAgICAg ICAgICAgICAgICAgICAgICAgICAgICAgICAgICAgICAgICAgICAgICAgICAgICAgICAgICAgICAgICAg ICAgICAgICAgICAgICAgICAgDQogICAgICAgICAgIC AgICAgICAgICAgICAgICAgICAgICAgICAgICAgICAgICAgICAgICAgICAgICAgICAgICAgICAgICAgIC AgICAgICAgICAgICAgICAgICAgICAgICAgICAgDQogICAgICAgICAgICAgICAgICAgICAgICAgICAgIC AgICAgICAgICAgICAgICAgICAgICAgICAgICAgICAg ICAgICAgICAgICAgICAgICAgICAgICAgICAgICAgICAgICAgICAgDQogICAgICAgICAgICAgICAgICAg ICAgICAgICAgICAgICAgICAgICAgICAgICAgICAgICAgICAgICAgICAgICAgICAgICAgICAgICAgICAg IGLlMRYaUCYfXEIlWYIsQSGtMZEaRPh0U1dlXUIkKD IuVB1aRUb7Le5+DYlRCcYvYHT7vwInkQ8NWV7lo2LwIJfqYWSlk4GbZZd2DW8ETTWsORfsUI2MWLznft 8OENMyLZCmoKTGv1ywOaKuDHT0INFmNdpyQX1XWARlY4hrfhRlNMJxZOKAQRriEFNGCBanKOOJBR8VUl XvD9QenT80KFHPNw9+SRivwdQwRukXRjEhLJUel5If VHf0EH0DMUAqQEfzWN1UOTXpfL2hDUdgWJ9NRdFaUUWlDWCNGnHpA29osJXvISt3X8KeCgIpQZWmMiga ZXMgPDwvTmFtZXMgWyBdDQogID4+ID4+IBtiGA3FJSzlylQsSULjRg6EYEEkRYL2THLloTLoJfExRAVC LWcjKT4JkMCrEFJ5mX5bFManSQXvELXzF3pTInHskL swAM97fGzjfzFafDDvNZz+Aj1UHC9gc8AkZMk1wdJaIFxxXZC1NSzdVKQxIUFiQKSgFHB1QEV1TTCLRn TdZBLhDCTyJDyhSFOgMCSxut1NWRZpBAZmJBD5QUUoDSFxIJRyOLqgEYGlOYZeYvS8KRDzGVDbXW5VKw QbZJSjCAZaEAtpBERdQYLooq8UDYTqCLAfVzSwUAKr WXIsHVSyDSukBYTmEBByFcWcJRQoTACmXK9CEuFmRYGwMJEwKQfmYAMaSSRdhk6EWINkMDSxDtV8FTAs EXLaDXWsMWayPXIeCLJ3SGF5UPLrMGKqRC2MItIcGICqQPawKpRqZORuPTUaie3LYBEgDRGiLRZrVQFy YKPqCTAwUVphBHDpXRL6ToW6RQGtMRBkXL4MTjZbWF LsXDc9JPWbLKHzLFKodu7BSEKlBPZzXXL9QOAcWRDyIJCqWOqfCZCfQKY0HBYnZWZdBOEwMZ2YQnKcNI PbQAu9MGqmZFCvUJEkbh2UCSLpNMCtEDhqUtDfJZQvFSYuDOsyGGOcKTGwFZO1JEEmHHIfIB4CKoRvHT VlKAZzQLOwYFCbWBZrbt4FDSLiXROdKvH5OtCwBQAx SMUfYWrrGXPfWZSsJBBaUWOvJGAfXN0WOiEfFBVeKeH7EnLpYFOyLBDttf2SBSLxMRAuTkWqITPnBCFh UBXtSRa8wnEqlJOoPFq1NC2SS0TimnVyEaQKJr0Jk780JVFcYCZbCc8MF0sbHh9zTSOkWJQNVx6AUJz0 OqBzVGg2TVX2WYR9QFYpIPs8NDY1VgLnM0F8TSS2Hw I+EHg7CYNlQwQ0VYB3NlMgIDN4XOlbOQkpVKJ2Xnw9MhVmSn5iMQCVPq1+DQpzdGFydHhyZWYNCjIyNj QcBIswIKDXGi9Q ID Date Data Source [id number] 04/17/2021 11:20:26 AM EDT [facility] Name Value Range Interpretation Code Description Data Romi rce(s) Supporting Document(s) POC NOVA GLU 73 mg/dL (70-99) [facility] ID Date Data Source [id number] 04/17/2021 12:39:18 PM EDT [facility] Name Value Range Interpretation Code Description Data Romi rce(s) Supporting Document(s) MAGNESIUM 3.8 mg/dL (1.7-2.4) H [facility] ID Date Data Source [id number] 04/17/2021 12:39:18 PM EDT [facility] Name Value Range Interpretation Code Description Data Romi rce(s) Supporting Document(s) SODIUM 143 mmol/L (136-145) [facility] POTASSIUM 4.4 mmol/L (3.6-5.2) [facility] CHLORIDE 111 mmol/L (100-108) H [facility] CO2 28 mmol/L (22-31) [facility] ANION GAP 4 mmol/L (7-16) L [facility] UREA NITROGEN 16 mg/dL (7-24) [facility] CREATININE 1.20 mg/dL (0.80-1.30) [facility] BUN/CREAT RATIO 13.3 RATIO (10.0-20.0) [facility] GLUCOSE 66 mg/dL (70-99) L [facility] CALCIUM 9.2 mg/dL (8.4-10.2) [facility] GFR >60 ml/min/1.73m2 (>59) [facility] GFR ( AMER) >60 ml/min/1.73m2 (>59) [facility] GFR INTERPRETATION [facility] --NORMAL KIDNEY FUNCTION OR MILD DISEASE - GFR >OR= 60CHRONIC KIDNEY DISEASE - GFR 15 - 59RENAL FAILURE - GFR <15 Est. GFR calculation based on the MDRDstudy equation, which assumes a steadystate for creatinine. Est. GFR should notbe used for medication dosing. ID Date Data Source [id number] 04/17/2021 12:27:17 PM EDT [facility] Name Value Range Interpretation Code Description Data Romi rce(s) Supporting Document(s) CALCIUM IONIZED 5.48 mg/dL (4.64-5.28) H [facility] IONIZED CALCIUM NORMALIZED TO PH 7.40 AN D 37 DEGREES C. ID Date Data Source [id number] 04/17/2021 12:17:31 PM EDT [facility] Name Value Range Interpretation Code Description Data Romi rce(s) Supporting Document(s) WBC 6.1 10*3/uL (4.1-11.0) [facility] RBC 3.03 10*6/uL (4.60-6.10) L [facility] HGB 9.1 g/dL (13.5-18.0) L [facility] HCT 27.6 % (41.0-53.0) L [facility] MCV 91.0 fL (80.0-95.0) [facility] MCH 29.9 pg (27.0-32.0) [facility] MCHC 32.9 g/dL (32.0-36.0) [facility] RDW 15.6 % (10.5-14.5) H [facility] PLT 122 10*3/uL (150-450) L [facility] MPV 8.4 fL (7.1-10.7) [facility] ID Date Data Source [id number] 04/17/2021 10:42:31 AM EDT [facility] Name Value Range Interpretation Code Description Data Romi rce(s) Supporting Document(s) POC SOURCE [facility] CP BYPASS [facility] POC PH 7.19 pH (7.35-7.45) L [facility] POC PCO2 64.2 MMHG (32.0-48.0) H [facility] POC PO2 99 MMHG (83-108) [facility] POC SAT O2 96 % (95-99) [facility] POC BASE DEFICIT 4 MMOL/L (0-2) H [facility] POC HCO3 24.4 MMOL/L (21.0-29.0) [facility] POC TOTAL CO2 26 MMOL/L (23.0-32.0) [facility] POC HCT 29 % (41.0-53.0) L [facility] POC SODIUM 139 MMOL/L (136-145) [facility] POC POTASSIUM 4.1 MMOL/L (3.6-5.2) [facility] POC IONIZED CALCIUM 6.3 MG/DL (4.6-5.3) H [facility] POC GLU 85 MG/DL (70-99) [facility] ID Date Data Source [id number] 04/17/2021 10:42:26 AM EDT [facility] Name Value Range Interpretation Code Description Data Romi rce(s) Supporting Document(s) POC ACT 109 s (80-140) [facility] ID Date Data Source [id number] 04/17/2021 12:24:25 PM EDT [facility] Name Value Range Interpretation Code Description Data Romi rce(s) Supporting Document(s) APTT 24.1 s (22.0-34.3) [facility] ID Date Data Source [id number] 04/17/2021 12:24:25 PM EDT [facility] Name Value Range Interpretation Code Description Data Romi rce(s) Supporting Document(s) PT 13.0 s (9.2-11.9) H [facility] INR 1.25 [facility] SUGGESTED THERAPEUTIC RANGES USING INR F ORSTABILIZED ANTICOAGULATED PATIENTS:STANDARD DOSE THERAPY INR 2.0-3.0 DVT, PE, PREVENT DVT OR EMBOLISMHIGH DOSE THERAPY INR 2.5-3.5 PREVENT EMBOLISM FROM MECHANICAL HEART VALVE ID Date Data Source [id number] 04/17/2021 09:54:59 AM EDT [facility] NT INFORMATIONPatient MRN Name Date of Age Gend*PT [id number] Adrian Andrews 1970 50 years M SDAPT Location Admission Date/Time Visit ID Attending Provider --- --- --- --- EPI ID CSN Admitting Provider [id number] ---AirwayPatient location during procedure: ORUrgency: electiveDifficult airway: [...] rce(s) Supporting Document(s) ID Date Data Source [id number] 04/17/2021 09:49:33 AM EDT [facility] Name Value Range Interpretation Code Description Data Romi rce(s) Supporting Document(s) POC SOURCE [facility] CP BYPASS [facility] POC PH 7.29 pH (7.35-7.45) L [facility] POC PCO2 48.7 MMHG (32.0-48.0) H [facility] POC PO2 306 MMHG (83-108) H [facility] POC SAT O2 100 % (95-99) H [facility] POC BASE DEFICIT 3 MMOL/L (0-2) H [facility] POC HCO3 23.2 MMOL/L (21.0-29.0) [facility] POC TOTAL CO2 25 MMOL/L (23.0-32.0) [facility] POC HCT 26 % (41.0-53.0) L [facility] POC SODIUM 134 MMOL/L (136-145) L [facility] POC POTASSIUM 5.0 MMOL/L (3.6-5.2) [facility] POC IONIZED CALCIUM 5.0 MG/DL (4.6-5.3) [facility] POC GLU 164 MG/DL (70-99) H [facility] ID Date Data Source [id number] 04/17/2021 09:49:28 AM EDT [facility] Name Value Range Interpretation Code Description Data Romi rce(s) Supporting Document(s) POC SOURCE [facility] CP BYPASS [facility] POC VENOUS PH 7.25 pH (7.33-7.43) L [facility] POC VENOUS PCO2 51.9 MM HG (38.0-50.0) H [facility] POC VENOUS PO2 49 MM HG (30-50) [facility] POC VENOUS SO2 77 % (60-85) [facility] POC VENOUS BASE DEFICIT 4 MMOL/L (0-2) H [facility] POC VENOUS HCO3 23.0 MMOL/L (23.0-27.0) [facility] POC VENOUS TOTAL CO2 25 MMOL/L (24-28) [facility] POC HCT 26 % (41.0-53.0) L [facility] POC SODIUM 133 MMOL/L (136-145) L [facility] POC POTASSIUM 5.0 MMOL/L (3.6-5.2) [facility] POC IONIZED CALCIUM 5.1 MG/DL (4.6-5.3) [facility] POC GLU 162 MG/DL (70-99) H [facility] ID Date Data Source [id number] 04/17/2021 09:49:23 AM EDT [facility] Name Value Range Interpretation Code Description Data Romi rce(s) Supporting Document(s) POC ACT 450 s (80-140) H [facility] ID Date Data Source [id number] 04/17/2021 09:16:57 AM EDT [facility] Name Value Range Interpretation Code Description Data Romi rce(s) Supporting Document(s) POC SOURCE [facility] CP BYPASS [facility] POC VENOUS PH 7.27 pH (7.33-7.43) L [facility] POC VENOUS PCO2 43.6 MM HG (38.0-50.0) [facility] POC VENOUS PO2 50 MM HG (30-50) [facility] POC VENOUS SO2 80 % (60-85) [facility] POC VENOUS BASE DEFICIT 7 MMOL/L (0-2) H [facility] POC VENOUS HCO3 19.8 MMOL/L (23.0-27.0) L [facility] POC VENOUS TOTAL CO2 21 MMOL/L (24-28) L [facility] POC HCT 22 % (41.0-53.0) L [facility] POC SODIUM 134 MMOL/L (136-145) L [facility] POC POTASSIUM 5.4 MMOL/L (3.6-5.2) H [facility] POC IONIZED CALCIUM 4.8 MG/DL (4.6-5.3) [facility] POC GLU 132 MG/DL (70-99) H [facility] ID Date Data Source [id number] 04/17/2021 09:23:22 AM EDT [facility] Name Value Range Interpretation Code Description Data Romi rce(s) Supporting Document(s) POC ACT 521 s (80-140) H [facility] ID Date Data Source [id number] 04/17/2021 08:50:23 AM EDT [facility] Name Value Range Interpretation Code Description Data Romi rce(s) Supporting Document(s) POC SOURCE [facility] CP BYPASS [facility] POC PH 7.23 pH (7.35-7.45) L [facility] POC PCO2 54.0 MMHG (32.0-48.0) H [facility] POC PO2 354 MMHG (83-108) H [facility] POC SAT O2 100 % (95-99) H [facility] POC BASE DEFICIT 5 MMOL/L (0-2) H [facility] POC HCO3 22.5 MMOL/L (21.0-29.0) [facility] POC TOTAL CO2 24 MMOL/L (23.0-32.0) [facility] POC HCT 32 % (41.0-53.0) L [facility] POC SODIUM 139 MMOL/L (136-145) [facility] POC POTASSIUM 4.3 MMOL/L (3.6-5.2) [facility] POC IONIZED CALCIUM 5.7 MG/DL (4.6-5.3) H [facility] POC GLU 114 MG/DL (70-99) H [facility] ID Date Data Source [id number] 04/17/2021 09:06:52 AM EDT [facility] Name Value Range Interpretation Code Description Data Romi rce(s) Supporting Document(s) POC ACT 555 s (80-140) H [facility] ID Date Data Source [id number] 04/21/2021 05:07:45 PM EDT [facility] [place], [place] [address]Tel# Surgical Pathology ReportPatient Name: ADRIAN ANDREWS: 1970Accession #:[id number](s) ReceivedA: Mitral valve leafletsClinical Diagnosis and HistoryRheumatic [...] myxoid change. No calcifications orvegetations are identified. Import Customs Clearing Agent sections are submitted as [id number]/skl Reported: 2020Electronically Signed Out By Miller Lloyd MD [facility] [place] [address] [id number] component performed at [facility], Histopathology, [address] [place] [address], [id number].Reported at [facility], [address] [place] [address], [phone]. This report may includeimmunohistochemical or in-situ hybridization results. Testing wasdeveloped and the performance characteristics determined by [facility]Miss[facility] CenterHERCAM[facility] eSKY[employer]pl [facility] as required by CLIA '88. The FDA hasdetermined that approval for specific use is not necessary for clinicaluse. The quality of Hematoxylin and Eosin stains and as applicable, forall immunohistochemical and/or special stains, including positive andnegative controls, were reviewed and considered appropriate.ICD codes I05.2CPT codesA: 89282H Name Value Range Interpretation Code Description Data [facility] Supporting Document(s) ID Date Data Source [id number] 04/17/2021 07:55:57 AM EDT Lab [facility] Name Value Range Interpretation Code Description Data [facility](s) Supporting Document(s) POC SOURCE [facility] CP BYPASS [facility] POC PH 7.27 pH (7.35-7.45) L [facility] POC PCO2 44.8 MMHG (32.0-48.0) [facility] P[facility] PO2 442 MMHG (83-108) H [facility] POC SAT O2 100 % (95-99) H [facility] POC BASE DEFICIT 6 MMOL/L (0-2) H [facility] POC HCO3 20.6 MMOL/L (21.0-29.0) L [facility] POC TOTAL CO2 22 MMOL/L (23.0-32.0) L [facility] PERFOR[facility] BY [facility]FF POC HCT 33 % (41.0-53.0) L [facility] POC SODIUM 139 MMOL/L (136-145) [facility] P[facility] POTASSIUM 4.1 MMOL/L (3.6-5.2) [facility] POC IONIZED CALCIUM 4.9 MG/DL (4.6-5.3) [facility] POC GLU 92 MG/DL (70-99) [facility] PER[facility] ID Date Data Source [id number] 04/17/2021 07:55:52 AM EDT [facility] Name Value Range Interpretation Code Description Data Romi [facility](s) Supporting Document(s) POC ACT 136 s (80-140) [facility] ID Date Data Source [id number] 04/17/2021 07:18:08 AM EDT [facility] NT INFORMATIONPatient MRN Name Date of Age Gend*PT [id number] Adrian Andresw 1970 50 years M SDAPT Location Admission Date/[facility] --- Chandler Corrigan MD([id number]) EPI ID CSN Admitting Provider [id number] Chandler Corrigan MD([id number])H&P reviewed. No changes Name Value Range Interpretation Code Description Data Romi [facility](s) Supporting Document(s) ID Date Data Source [id number] 04/17/2021 06:32:20 AM EDT [facility] Name Value Range Interpretation Code Description Data Romi [facility]ce(s) Supporting Document(s) POC NOVA GLU 94 mg/dL (70-99) [facility] PERFOR[facility] BY [facility] ID Date Data Source [id number] 04/17/2021 12:29:33 PM EDT [facility] GARCIA SPEC EXP DATE 04/18/2021TEST ING SITE PERFORMED AT [address] [place] [address] [id number] NUMBER [id number] COMPONENT TYPE LEUKOPOOR RED CELLSUNIT DIVISION 00STATUS OF UNIT REL FROM ALLOCTRANSFUSION STATUS OK TO TRANSFUSECROSSMATCH RESULT COMPATIBLEUNIT NUMBER [id number] COMPONENT TYPE LEUKOPOOR RED CELLSUNIT DIVISION 00STATUS OF UNIT REL FROM ALLOCTRANSFUSION STATUS OK TO TRANSFUSECROSSMATCH RESULT COMPATIBLE Name Value Range Interpretation Code Description Data Romi rce(s) Supporting Document(s) TRANSFUSE RED CELLS [facility] TESTING SITE PERFORMED AT [address] [place] [address] [id number] ID Date Data Source [id number] 04/16/2021 09:44:31 AM EDT [facility] NT INFORMATIONPatient MRN Name Date of Age Gend*PT [id number] Adrian Andrews 1970 50 years M OPPT Location Admission Date/Time Visit ID Attending Provider --- --- --- Chandler Corrigan MD([id number]) EPI ID CSN Admitting Provider [id number] ---Addended by: JIA MCKEON on: 04/16/2021 09:44 AM Modules accepted: Orders Name Value Range Interpretation Code Description Data Romi rce(s) Supporting Document(s) ID Date Data Source [id number] 04/14/2021 11:55:35 AM EDT [facility] NT INFORMATIONPatient MRN Name Date of Age Gend*PT [id number] Adrian Andrews 1970 50 years M OPPT Location Admission Date/Time Visit ID Attending Provider --- --- --- Chandler Corrigan MD([id number]) EPI ID CSN Admitting Provider [id number] ---HISTORY PHYSICALName: Adrian Andrews : 1970 Sex: male [facility] Physician: Dr. CorriganInformant: The patient who is [...] mean transmitral gradient is 7 and peak mmHg corresponding to moderate mitral stenosis. 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 Roland, [facility] HospitalERGIES:AllergiesAllergen Reactions Codeine RashMEDICATIONS:Prior to Admission medicationsMedication Sig [...] AERS Inhale 2 puffs daily 11/06/20 HistoricalProvider, DILIPUMAtriptan (IMITREX) 100 MG tablet Take 100 mg by mouth once as needed (atonset of migraine. May repeat dose in 2 hours if needed. MDD : 2 tablets)12/06/20 Historical Provider, Iggyspirin EC 81 MG EC tablet Take 1 tablet (81 mg total) by mouth daily Toby Parish MDibuprofen (ADVIL,MOTRIN) 200 MG tablet Take 200 mg by mouth every 8 (eight)hours as needed 8/2/21 Historical Provider, DILIPocial HistoryTobacco Use Smoking status: [...] warm and dry.HEENT: He is normocephalic, atraumatic. Haring conjunctivae. Anicteric sclerae.Pupils are equal, round, reactive [...] Clear to auscultation. No wheezes, rhonchi or crabber ckles.HEART: Rate rhythm regular. No murmur appreciated on exam. Right carotidbruit.ABDOMEN: Bowel sounds positive times four. Soft, non tender. No reboundtenderness. No hepatosplenomegaly. Negative CVAT.GENITAL/RECTAL: Deferred.MUSCLE/SKELETAL: Strength is 5/5. [employer] are equal. Limited range of motion ofleft shoulder.NEUROLOGICALLY: Cranial nerves II through XII are grossly intact.VASCULAR: Pulses are symmetrical. Trace edema.Anesthesia complications: DeniesSteroid use: He denies any oral steroid therapy for three weeks or greaterwithin the last 3 months.[facility] Frailty Scale :: 5/10 Mildly Frail [...] Cigarettes Smoking cessation information givento patient including [facility] quit line. Nicotine replacement products ifindicated by the attending6. Complex regional pain syndromeBased on above medical co morbidities, length of stay may be prolonged greaterthan previously anticipated.ALLERGIES:Codeine04/14/2021 11:55 Redd Mckeon NP*This document or parts of this document, were dictated using [employer] software. A reasonable attempt at proofreading has beenmade to minimize errors. Please call with any questions or corrections. Name Value Range Interpretation Code Description Data Romi rce(s) Supporting Document(s) ID Date Data Source [id number] 04/14/2021 10:27:[address] [facility] ULTR ASOUND CAROTID DUPLEXCLINICAL HISTORY: Pretesting. [...] than 50% ICA stenosis bilaterally.Dictated by: MERCEDES EPÑA on 04/14/2021lectronically Signed by: MERCEDES PEÑA on 04/14/2021 03:16 PMTranscribed by: on 04/14/2021 02:05 PMCDS G code: ,CDS Modifier: ,cc: Name Value Range Interpretation Code Description Data Romi rce(s) Supporting Document(s) ID Date Data Source [id number] 04/14/2021 10:20:00 [address] [facility] CT C HEST WO IV CONTRASTCLINICAL [...] which is not fully included in the zrzza-ky-aezr, the largest measuring 3 mm.IMPRESSION:1. Mild emphysema. No acute pulmonary abnormality.2. Several mildly prominent mediastinal lymph nodes measuring up to 12 mm in short axis, favored to be reactive. Consider follow-up CT in 3 months.3. At least 3 small calculi in the right kidney, not fully included in the xdzpm-jj-rfto.Dictated by: MERCEDES PEÑA on 04/14/2021lectronically Signed by: MERCEDES PEÑA on 04/14/2021 01:56 PMTranscribed by: kulwinder on 04/14/2021 01:56 PMCDS G code: ,CDS Modifier: ,cc: Name Value Range Interpretation Code Description Data Romi rce(s) Supporting Document(s) ID Date Data Source [id number] 04/14/2021 10:19:01 AM EDT [facility] Name Value Range Interpretation Code Description Data Romi rce(s) Supporting Document(s) EKG [facility] system LFBJHk5tKgSOFrQmf7RpLjMdNAJcKS4pwqg0R5Y3iLFzP0KhqDZcs6uqS7BiN0ElLRQbKHEIKI9HnVPg jb2 [file] qBuZLNVkqSZLNVmqydJMlmayNJOlmSzNZGkmSzNZms oECQZqwvAMtVjd7DNfDit4XZc9U1xs/0jSoYdm0eQ+BvnEa1KbMNi6jSElFKnEd8s10TP4Jv7BHzIfb9 I641H1TtVwGKSLqYGgudBIjbkaoGiFMNzgbeTKmftgO6RElzQimBWAtYTd0eBeuXf79tX9LaBFg+plWb 6bk5if4nNjOahLb+rtowe2e31n61EDSyt0Ntkk1akg z1QGdDlRSfyRFQXK+E7V9aq94Z/XEMAeVOKeDUkxAmxQ3hPoiBdNxh2mdUwiUdzifqI/vkMuV/OrPeRy nXzhB71V4hAM9SrbxSjDlPDiSwjwdA6X0ZQw+2UfEmtr5ngA81Nq0yw+Ty1XN2kKTcYbgFa/jYNBAspg 0KWkTD8hYRahlxPIHyliHxmRogeADlcvPl4gfxrWJ2 2owx21hyjfLzeE1vxUmErjgfcdbveYBF7yBRewq3pjquoG0+dLl++Uq+ppE0Nldo/xdOeRZahVUu/K9e 1KwAkM2R98i/SuelbwezSuq+t8i7n+D5zdzk9VeDNRT6t7ZIzBzc7pK6gXkj7dFjZa9L1WCPuXw7V5MH J1nTO/say/wKP9eTzSjPBOVP5zMnYFvw30kFNYAdzx /1djcs99GYzGeXjDML1Ad7awM+ef3OK7FlHnMo4sRP/9L2ym7mIBcrVdsFuGOgqtAODPsF0D50zB+J2O Ga4O095EKsJHRD20Kgxhz8Y0uw9kkB9gikfm6b0wBh1Y7lpU5VF1R7s3WmuMl9Yd4inBre0ohhHCBOac V3y5fhO5vBnH1aRPgCr1eQMKEk1BzPuZN+f8KDq/сергей [file] 5PHl/KxmOz6V0Bb8btI6BV1qK+FYdKfje4RA7rT+Сергей [file] biAKMDAwMDAwMDUyMyAwMDAwMCBuIAowMDAwMDAwNj RmKGXuOGNgCL0tKuCcNANkXDR5XSJpOTMhNZHtlkZBRZVcTEBkDNc9AABxLMFqIFYzAMshXUIgPJClQN O7WBOfLWGrYM5iFyLzDSKeNTZlORAeMCUeWVOjknLQWUPuBDToTPR4LKPeLEDaNGVlCXoyKYFgIJNjUx v7TQQpYSVfHK8nYyCnHPKyKQT0IPAoWJThLHCjsbSK SSXcUFU7Fgx5LuCrOSLqYYHdDGdrGESnBABvJrV0JISaPVYqGM4gLcRrTGByOWB5GaYdBEJbNHAsgrQX EUQkJFVnHYQ2DzOsCLUmXLMrWLisYKCnTDGvSQLzWRE5CTQ6IKFwBpHlJGzwOFVYWGiHQ7FcfcMfCwUC Y1kgMh2sRoIiQBXVA5Xuk9LyAOKqQAKPHq8+JnX3CLY4kNVuQsi3NyMzUmakZNSAFe== ID Date Data Source [id number] 04/15/2021 11:05:37 AM EDT [facility] SPECIMEN DESCRIPTION URINE, COLLE CTION METHOD NOT SPECIFIEDCULTURE RESULTS NO GROWTHREPORT STATUS FINAL 04/15/2021 Name Value Range Interpretation Code Description Data Romi rce(s) Supporting Document(s) ID Date Data Source [id number] 04/14/2021 12:33:31 PM EDT [facility] Name Value Range Interpretation Code Description Data Romi rce(s) Supporting Document(s) COLOR [facility] APPEARANCE [facility] SPEC GRAV URINE 1.020 (1.003-1.030) [facility] PH URINE 6.0 (5.0-7.5) [facility] LEUK ESTERASE (NEG) [facility] NITRITE URINE (NEG) [facility] PROTEIN URINE (NEG) [facility] GLUCOSE URINE (NEG) [facility] KETONE URINE (NEG) [facility] ZAF[facility] UROBILINOGEN 0.2 mg/dL (0-1.0) [facility] BILIRUBIN URINE (NEG) [facility] BLOOD/HGB URINE (NEG) [facility] ID Date Data Source [id number] 04/14/2021 10:42:38 PM EDT [facility] Name Value Range Interpretation Code Description Data Romi rce(s) Supporting Document(s) ROOM TEMP AB SCREEN [facility] ROOM TEMP AB SCREEN NEGATIVE ID Date Data Source [id number] 04/14/2021 09:03:24 PM EDT [facility] SPEC EXP DATE 1PATI ENT ABO/Rh O NEGATIVEANTIBODY SCREEN NEGATIVETESTING SITE PERFORMED AT [address] [place] [address] Name Value Range Interpretation Code Description Data Romi rce(s) Supporting Document(s) TYPE AND SCREEN [facility] ANTIBODY SCREEN NEGATIVE ID Date Data Source [id number] 04/14/2021 12:52:19 PM EDT [facility] Name Value Range Interpretation Code Description Data Romi rce(s) Supporting Document(s) HEMOGLOBIN A1C @ 5.3 % (4.0-6.0) [facility] sunny GARCIA Performed using Siemens Longs immunoassa y.Care must be taken when interpreting VhB7cjznsmvc in patients with a hemoglobin variantor decreased erythrocyte lifespan. Values 5.7 - 6.4% suggest prediabetes.Values >=6.5% are diagnostic for diabetes.REFERENCE: DIABETES CARE 2018: 41(S13-S27). EST AVERAGE GLUCOSE 105 mg/dL [facility] ID Date Data Source [id number] 04/14/2021 12:48:58 PM EDT [facility] Name Value Range Interpretation Code Description Data Romi rce(s) Supporting Document(s) NT PRO BNP 1465 pg/mL (0-125) H [facility] Y ID Date Data Source [id number] 04/14/2021 12:48:58 PM EDT [facility] Name Value Range Interpretation Code Description Data Romi rce(s) Supporting Document(s) SODIUM 139 mmol/L (136-145) [facility] POTASSIUM 4.7 mmol/L (3.6-5.2) [facility] CHLORIDE 112 mmol/L (100-108) H [facility] CO2 19 mmol/L (22-31) L [facility] ANION GAP 8 mmol/L (7-16) [facility] UREA NITROGEN 22 mg/dL (7-24) [facility] CREATININE 1.37 mg/dL (0.80-1.30) H [facility] BUN/CREAT RATIO 16.1 RATIO (10.0-20.0) [facility] GLUCOSE 78 mg/dL (70-99) [facility] CALCIUM 8.2 mg/dL (8.4-10.2) L [facility] TOTAL PROTEIN 6.9 g/dL (6.4-8.2) [facility] ALBUMIN 3.7 g/dL (3.5-4.6) [facility] GLOBULIN 3.2 g/dL (2.7-4.3) [facility] ALB/GLOB RATIO 1.2 RATIO [facility] ALKALINE PHOSPHATASE 118 U/L (45-117) H [facility] BILIRUBIN,TOTAL 0.4 mg/dL (0.0-1.0) [facility] PLEASE NOTE:Total bilirubin results may be falselyelevated in patients taking Eltrombopag. AST (SGOT) 18 U/L (11-39) [facility] ALT (SGPT) 19 U/L (12-78) [facility] GFR 55 ml/min/1.73m2 (>59) L [facility] GFR ( AMER) >60 ml/min/1.73m2 (>59) [facility] GFR INTERPRETATION [facility] --NORMAL KIDNEY FUNCTION OR MILD DISEASE - GFR >OR= 60CHRONIC KIDNEY DISEASE - GFR 15 - 59RENAL FAILURE - GFR <15 Est. GFR calculation based on the MDRDstudy equation, which assumes a steadystate for creatinine. Est. GFR should notbe used for medication dosing. ID Date Data Source [id number] 04/14/2021 12:39:14 PM EDT [facility] Name Value Range Interpretation Code Description Data Romi rce(s) Supporting Document(s) APTT 31.3 s (22.0-34.3) [facility] ID Date Data Source [id number] 04/14/2021 12:39:14 PM EDT [facility] Name Value Range Interpretation Code Description Data Romi rce(s) Supporting Document(s) PT 11.3 s (9.2-11.9) [facility] INR 1.09 [facility] SUGGESTED THERAPEUTIC RANGES USING INR F ORSTABILIZED ANTICOAGULATED PATIENTS:STANDARD DOSE THERAPY INR 2.0-3.0 DVT, PE, PREVENT DVT OR EMBOLISMHIGH DOSE THERAPY INR 2.5-3.5 PREVENT EMBOLISM FROM MECHANICAL HEART VALVE ID Date Data Source [id number] 04/14/2021 12:23:49 PM EDT [facility] Name Value Range Interpretation Code Description Data Romi rce(s) Supporting Document(s) WBC 7.5 10*3/uL (4.1-11.0) [facility] [place] RBC 3.62 10*6/uL (4.60-6.10) L [facility] HGB 11.0 g/dL (13.5-18.0) L [facility] HCT 33.4 % (41.0-53.0) L [facility] MCV 92.2 fL (80.0-95.0) [facility] MCH 30.5 pg (27.0-32.0) [facility] MCHC 33.1 g/dL (32.0-36.0) [facility] RDW 16.3 % (10.5-14.5) H [facility] PLT 200 10*3/uL (150-450) [facility] MPV 8.8 fL (7.1-10.7) [facility] NEUT % 63.1 % (35.0-75.0) [facility] LYMPH % 29.0 % (16.0-52.0) [facility] MONO % 5.8 % (0.0-8.0) [facility] EOS % 1.4 % (0.0-5.0) [facility] BASO % 0.7 % (0.0-4.0) [facility] NEUT # 4.7 10*3/uL (1.8-7.7) [facility] LYMPH # 2.2 10*3/uL (1.2-4.8) [facility] MONO # 0.4 10*3/uL (0.0-0.8) [facility] Eosinophils [#/volume] in Blood by Automated count 0.1 10*3/uL (0.0-0 .5) [facility] BASO # 0.1 10*3/uL (0.0-0.2) [facility] ID Date Data Source [id number] 04/14/2021 09:42:49 AM EDT [facility] Name Value Range Interpretation Code Description Data Romi rce(s) Supporting Document(s) POC SOURCE [facility] PUNCTURE SITE [facility] O2 THERAPY [facility] KB TEST [facility] POC PH 7.27 pH (7.35-7.45) L [facility] POC PCO2 32.7 MMHG (32.0-48.0) [facility] POC PO2 89 MMHG (83-108) [facility] POC SAT O2 96 % (95-99) [facility] POC BASE DEFICIT 11 MMOL/L (0-2) H [facility] POC HCO3 15.1 MMOL/L (21.0-29.0) L [facility] POC TOTAL CO2 16 MMOL/L (23.0-32.0) L [facility] PERFORMED BY [facility] CLIN[facility] STAFF ID Date Data Source [id number] 04/15/2021 10:33:27 AM EDT [facility] Name Value Range Interpretation Code Description Data Romi rce(s) Supporting Document(s) SPECIMEN DESCRIPTION [facility] STAPH SCREEN RESULTS (ONEGSA) A [facility] COMMENT [facility] RIC GENE TO DETECT STAPH AUREUS. (2) [...] [place] This lab was reported by [facility]. ID Date Data Source [id number] 04/15/2021 07:17:38 AM EDT [facility] GARCIA Name Value Range Interpretation Code Description Data Romi rce(s) Supporting Document(s) SPECIMEN DESCRIPTION [facility] COVID 19 RESULT (NDET) [facility] NEGATIVE COVID-19 RESULTS DONOT PRECLUDE COVID-2019 INFECTION ANDSHOULD NOT BE USED THE SOLE BASISFOR PATIENT MANAGEMENT DECISIONS. COMMENT [facility] THE U.S. FDA HAS MADE THIS TEST AVAILABL EUNDER AN EMERGENCY USE AUTHORIZATION(EUA) FOR THE DETECTION AND/OR DIAGNOSISOF THE VIRUS THAT CAUSES COVID-19.THIS ASSAY AMPLIFIES AND DETECTS TARGETDNA USING JUNIOR ADMINISTRATIVE ASSISTANT- MEDIATEDAMPLIFICATIONTESTING PERFORMED ON [employer] FIRST TEST [facility] EMPLOYED IN HLTHCARE Lab [facility] of [facility] SYMPTOMATIC [facility] of RIC DATE OF SYMPT ONSET [facility] HOSPITALIZED [facility] ICU [facility] CONGREGATE CARE SET [facility] R[facility] ID Date Data Source [id number] 04/09/2021 06:14:43 PM EDT [facility]FORMATIONPatient MRN Name Date of Age Gend*PT [id number] Adrian Andrews 1970 50 years M ---PT Location Admission Date/Time Visit ID Attending Provider --- --- --- --- EPI ID CSN Admitting Provider [id number] ---ConsultAssessment/Plan:50-year-old pleasant gentleman referred with most likely [...] education level: NoneOccupational History 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, [address], [address] [place], [address], Jose Valentine MD Received: 02/08/2021 at 08:04:00 AMD : [facility], [address], [place], [address], Danielito Baum M.D.,PhD Name Value Range Interpretation Code Description Data [facility] rce(s) Supporting Document(s) Glucose [Mass/volume] in Serum [...] is approximately 13% higher for peopleidentified as -Gibraltarian. eGFR NON-AFR. CZECH 74 mL/min/1.73m2 > OR = 60 Normal [...] results) [facility] ID Date Data Source [id number] 02/12/2021 02:29:00 PM EDT [facility] FASTING: UNKNOWNReceived: 02/08/2021 at 08:04:00 QPT: [facility], [address], [address] [place], [address], Jose Valentine MD Received: 02/08/2021 at 08:04:00 AMD : [facility], [address], [place], [address], Danielito Baum M.D.,PhD Name Value Range Interpretation Code Description Data Romi rce(s) Supporting Document(s) Natriuretic peptide.B prohormone N-Terminal [Mass/volu me] in Serum or Plasma 578 pg/mL Above high normal [facility] For Heart Failure (HF) diagnosis, refere nce ranges inpatients with dyspnea are based on Shana JL, Et al.Am Inocente Cardiol. 2018;71:9759-5316.18-49 years:<= 300 pg/mL Normal, HF unlikely>= 450 pg/mL High probability of HF50-75 years:<= 300 pg/mL Normal, HF unlikely>= 900 pg/mL High probability of HF>75 years:<= 300 pg/mL Normal, HF unlikely>= 1800 pg/mL High probability of HFFor patients with coronary heart disease, the optimalrisk category cut points for incident HF or CVD (<253 pg/mL men, <372 pg/mL women) are based onGurmeet T, et al. J Am Inocente Cardiol. 2007:50:205-14.For patients with existing HF, the optimal riskcategory cut point for HF progression (<300 pg/mL) isbased on Nick KB, et al. Clin Biochem. 2010;43:1405-10.For additional information, please refer tohttp://education.[employer]/faq/BRM995(This link is being provided for informational/educational purposes only.) Your request to have a duplicate copy faxed has been acknowledged. Queued to: [id number] COLLECTION DATE RECEIVED. WE HAVE USEDTHE DATE THE SPECIMEN WAS [facility] THE COLLECTION DATE. IF THISIS INCORRECT, PLEASE CONTACT CLIENT SERVICES.PHONE NUMBER: [phone] ID Date Data Source [id number] 01/24/2021 12:50:00 PM EDT [facility] Name Value Range Interpretation Code Description Data Romi rce(s) Supporting Document(s) SARS-CoV-2 (COVID-19) RNA [Presence] in Respiratory specimen by LEON with probe detection Not Detected [facility] This lab was ordered by [facility] and reported by [facility]. ID Date Data Source [id number] 12/10/2020 01:26:06 PM EDT [facility] Name Value Range Interpretation Code Description Data Romi rce(s) Supporting Document(s) &PDF Health system LJOJAs6eMiNZDwFs83/LUSawCCXzn7NnVSdjKAu5KAstXEFtF7IedZocBGKJAdUvQ7BKKGTvFJMhZEEa waW CaZ5mrnBXmmhSCb1Raw1EkkVlenklYTzQrEb4TWmNiMT6ter7INKKkDI9snx5JIFV6VQ2TbBj8PIIaT1 IyGTLeOOGux3QaWG8RTL5jsLaoSwY7PM2+XYijUUX9lhOhhD4XAFDuVDzbOur7qtC+H9W79OLUEz9Skg QSTiqrGPIcTRYZSIXmFTWZJEFFDDG6deMK/qVqc4Hh [file] f0myPS7Ld0Cb4Rer35zYs82VIe2rNuyZz2I/Ui+electrical instrument maker/ANY8r2k9zXUjfYHLrGwPj1jfHzIKfA4lbSGLBR [file] K3QyWkSrUemxXpD3DEsyHiFqDsUtMwGmNE2BWm7NYmR4RRJ7yAZmMv0YTmQ7YuTYPrEmZI6YUTk= ID Date Data Source [id number] 12/10/2020 01:27:46 PM EDT [facility] NT INFORMATIONPatient MRN Name Date of Age Gend*PT [id number] Adrian Andrews 1970 50 years M HOPPT Location Admission Date/Time Visit ID Attending Provider12/10/20 09 --- Susan House MD([id number]) EPI ID CSN Admitting Provider [id number] Susan House MD([id number])Pre-Procedure History and Physical:H&P reviewed. The patient was examined and there are no changes to the H&P.Risks/benefits and alternatives explained to patient/ and or family who iswilling to proceed.Specific risks explained include but are not limited to: contrast reaction,contrast induced nephropathy, vascular problems including stroke, MS and evendeath.Signature: Susan House II, MDInterventional CardiologyDate: December 10, 2020Time: 1:26 PM Name Value Range Interpretation Code Description Data Romi rce(s) Supporting Document(s) ID Date Data Source [id number] 12/10/2020 09:50:00 AM EDT [facility] Name Value Range Interpretation Code Description Data Romi rce(s) Supporting Document(s) SARS coronavirus 2 RNA [Presence] in Res piratory specimen by LEON with probe detection NOT DETECTED [place] This lab was reported by [facility]. ID Date Data Source [id number] 12/10/2020 11:03:31 AM EDT [facility] Name Value Range Interpretation Code Description Data Romi rce(s) Supporting Document(s) SPECIMEN DESCRIPTION [facility] INFLUENZA A (NEG) [facility] of [facility] INFLUENZA B (NEG) [facility] of [facility] RSV (NEG) [facility] of [facility] COMMENT [facility] of [facility] THE U.[place]. FDA HAS MADE THIS TEST AVAILABL EUNDER AN EMERGENCY USE AUTHORIZATION(EUA) FOR THE DETECTION AND/OR DIAGNOSISOF THE VIRUS THAT CAUSES COVID-19.PERFORMED AT [address] [place] [address] COVID19 RESULT (NDET) [facility] THIS ASSAY AMPLIFIES AND DETECTSTHE TARG ET RNA USING REAL-TIME PCR.TESTING PERFORMED ON [employer] GENEXPERTNEGATIVE 2019_NCOV RT-PCR RESULTS DONOT PRECLUDE 2019_NCOV INFECTION ANDSHOULD NOT BE USED THE SOLE BASISFOR PATIENT MANAGEMENT DECISIONS. FIRST TEST [facility] RICY EMPLOYED IN HLTHCARE [facility] SYMPTOMATIC [facility] of CN Y DATE OF SYMPT ONSET [facility] HOSPITALIZED [facility] of C [place] ICU [facility] CONGREGATE CARE SET [facility] ID Date Data Source [id number] 12/10/2020 11:11:37 AM EDT [facility] Name Value Range Interpretation Code Description Data Romi rce(s) Supporting Document(s) SODIUM 140 mmol/L (136-145) [facility] POTASSIUM 4.4 mmol/L (3.6-5.2) [facility] CHLORIDE 108 mmol/L (100-108) [facility] CO2 27 mmol/L (22-31) [facility] ANION GAP 5 mmol/L (7-16) L [facility] UREA NITROGEN 7 mg/dL (7-24) [facility] CREATININE 1.40 mg/dL (0.80-1.30) H [facility] BUN/CREAT RATIO 5.0 RATIO (10.0-20.0) L [facility] GLUCOSE 79 mg/dL (70-99) [facility] CALCIUM 8.9 mg/dL (8.4-10.2) [facility] GFR 53 ml/min/1.73m2 (>59) L [facility] GFR ( AMER) >60 ml/min/1.73m2 (>59) [facility] GFR INTERPRETATION [facility] --NORMAL KIDNEY FUNCTION OR MILD DISEASE - GFR >OR= 60CHRONIC KIDNEY DISEASE - GFR 15 - 59RENAL FAILURE - GFR <15 Est. GFR calculation based on the MDRDstudy equation, which assumes a steadystate for creatinine. Est. GFR should notbe used for medication dosing. ID Date Data Source [id number] 12/10/2020 10:59:23 AM EDT [facility] Name Value Range Interpretation Code Description Data Romi rce(s) Supporting Document(s) WBC 5.2 10*3/uL (4.1-11.0) [facility] of [place] RBC 3.93 10*6/uL (4.60-6.10) L [facility] HGB 12.3 g/dL (13.5-18.0) L [facility] HCT 35.5 % (41.0-53.0) L [facility] CN Y PERFORMED AT [address] [place] [address] N [place] [address] MCV 90.3 fL (80.0-95.0) [facility] MCH 31.2 pg (27.0-32.0) [facility] MCHC 34.5 g/dL (32.0-36.0) [facility] RDW 15.2 % (10.5-14.5) H [facility] PLT 205 10*3/uL (150-450) [facility] MPV 8.0 fL (7.1-10.7) [facility] ID Date Data Source LIPID PANEL (CARDIAC RISK) 11/05/2020 12:00:00 AM EST eCW1 ( [facility]) Name Value Range Interpretation Code Description Data Romi rce(s) Supporting Document(s) Cholesterol [Moles/volume] in Serum or Plasma 220 <200 CHOLESTEROL LEVEL eC1 ([facility]) Triglyceride [Mass/volume] in Serum or Plasma by calculation 98 <150 TRIGLYCERIDES LEVEL [facility] ([facility]) 4.313 <5 CHOLESTEROL RISK RATIO eCW ([facility]) Cholesterol in HDL [Moles/volume] in Serum or Plasma 51 >40 HDL CHOLESTEROL eCW1 ([facility]) 169 NON-HDL-C eCW1 ([facility]) Cholesterol in LDL [Mass/volume] in Serum or Plasma by calculation 149 <100 LDL CHOLESTEROL eCW1 ([facility]) ID Date Data Source FREE T4 & TSH PANEL 11/05/2020 12:00:00 AM EST eCW1 ([facility]) Name Value Range Interpretation Code Description Data Romi rce(s) Supporting Document(s) 0.725 0.358-3.740 THYROID STIMULATING HORM ONE eCW1 ([facility]) 0.95 0.76-1.46 FREE T4 eCW1 ([facility]) ID Date Data Source Comprehensive Metabolic Profile (CMP) 11/05/2020 12:00:00 AM EST eCW1 ([facility]) Name Value Range Interpretation Code Description Data Romi rce(s) Supporting Document(s) 73 70-100 GLUCOSE, FASTING eCW1 ([facility]) 7 7-18 BLOOD UREA NITROGEN eCW1 ([facility]) 1.28 0.70-1.30 CREATININE FOR GFR eCW1 ([facility]) 107 98-107 CHLORIDE LEVEL eCW1 ([facility]) > 60.0 >56 GLOMERULAR FILTRATION RATE eCW 1 ([facility]) 138 136-145 SODIUM LEVEL eCW1 ([facility]) 5.4 3.5-5.1 POTASSIUM SERUM eCW1 ([facility]) 14 7-37 AST/SGOT eCW1 ([facility]) 135 45-117 ALKALINE PHOSPHATASE eCW1 ([facility]) 9.3 8.5-10.1 CALCIUM LEVEL eCW1 ([facility]) 26 21-32 CARBON DIOXIDE LEVEL eCW1 ([facility]) 19 12-78 ALT/SGPT eCW1 ([facility]) 7.3 6.4-8.2 TOTAL PROTEIN eCW1 ([facility]) 3.7 3.2-5.2 ALBUMIN eCW1 ([facility]) 1.0 ALBUMIN/GLOBULIN RATIO eCW1 ([facility]) 0.5 0.2-1.0 BILIRUBIN,TOTAL eCW1 ([facility]) ID Date Data Source CBC - Complete Blood Count 11/05/2020 12:00:00 AM EST eCW1 ( [facility]) Name Value Range Interpretation Code Description Data Romi rce(s) Supporting Document(s) 4.30 4.30-6.10 eCW1 ([facility]) 42.0 42.0-52.0 eCW1 ([facility]) 5.6 4.0-10.0 eCW1 ([facility]) 12.7 13.5-17.5 eCW1 ([facility]) 29.5 27.0-33.0 eCW1 ([facility]) 97.7 80.0-96.0 eCW1 ([facility]) 30.2 32.0-36.5 eCW1 ([facility]) 14.6 11.5-14.5 eCW1 ([facility]) 221 150-450 eCW1 ([facility]) Procedure Social History Code Duration Value Status Description Data Source(s ) Smoking 06/26/2021 12:00:00 AM EDT Current Smoker completed Curre nt Smoker eCW1 ([facility]) Smoking 06/26/2021 12:00:00 AM EDT Current Smoker completed Curre nt Smoker eCW1 ([facility]) Smoking 06/25/2021 12:00:00 AM EDT Current Smoker completed Curre nt Smoker eCW1 ([facility]) Alcohol intake 04/26/2021 12:00:00 AM EDT Ex-drinker (finding) comp leted Ex- drinker (finding) [facility] Alcohol intake 04/23/2021 12:00:00 AM EDT Ex-drinker (finding) comp leted Ex- drinker (finding) [facility] Alcohol intake 04/14/2021 12:00:00 AM EDT Ex-drinker (finding) comp leted Ex- drinker (finding) [facility] Alcohol intake 04/07/2021 12:00:00 AM EDT Ex-drinker (finding) comp leted Ex- drinker (finding) [facility] Tobacco use and exposure 02/06/2021 12:00:00 AM EDT Never used co mpleted Never used [facility] Cigarette pack-years 02/06/2021 12:00:00 AM EDT UNK completed [facility] Cigarettes smoked current (pack per day) - Reported 02/07/20 12:00:00 AM EDT UNK completed Health system Smoking 02/06/2021 12:00:00 AM EDT Current every day smoker co mpleted Current every day smoker [facility] Alcohol intake 02/06/2021 12:00:00 AM EDT Ex-drinker (finding) comp leted Ex- drinker (finding) [facility] Alcohol intake 01/06/2021 12:00:00 AM EDT Ex-drinker (finding) comp leted Ex- drinker (finding) [facility] Alcohol intake 12/10/2020 12:00:00 AM EDT Not Currently completed [facility] Cigarette pack-years 12/10/2020 12:00:00 AM EDT UNK completed [facility] Cigarettes smoked current (pack per day) - Reported 12/11/19 12:00:00 AM EDT UNK completed Health system Smoking 12/10/2020 12:00:00 AM EDT Former smoker completed Former smoker [facility] Alcohol intake 12/09/2020 12:00:00 AM EDT Not Currently completed [facility] Cigarette pack-years 12/09/2020 12:00:00 AM EDT UNK completed [facility] Cigarettes smoked current (pack per day) - Reported 12/10/19 12:00:00 AM EDT UNK completed Health system Smoking 12/09/2020 12:00:00 AM EDT Former smoker completed Former smoker [facility] Smoking 12/06/2020 12:00:00 AM EDT Current Smoker completed Curre nt Smoker eCW1 ([facility]) Smoking 12/06/2020 12:00:00 AM EDT Current Smoker completed Curre nt Smoker eCW1 ([facility]) Smoking 12/06/2020 12:00:00 AM EDT Current Smoker completed Curre nt Smoker eCW1 ([facility]) Smoking 12/06/2020 12:00:00 AM EDT Current Smoker completed Curre nt Smoker eCW1 ([facility]) Smoking 11/05/2020 12:00:00 AM EST Current Smoker completed Curre nt Smoker eCW1 ([facility]) Smoking 11/05/2020 12:00:00 AM EST Current Smoker completed Curre nt Smoker eCW1 ([facility]) Smoking 11/05/2020 12:00:00 AM EST Current Smoker completed Curre nt Smoker eCW1 ([facility]) Smoking 11/05/2020 12:00:00 AM EST Current Smoker completed Curre nt Smoker eCW1 ([facility]) 12/09/2020 12:00:00 AM EDT Cigarette Smoker completed Cig arette Smoker [facility] 12/09/2020 12:00:00 AM EDT Current smoker completed Curre nt smoker [facility] 12/09/2020 12:00:00 AM EDT Cigarette Smoker completed Cig arette Smoker [facility] 12/09/2020 12:00:00 AM EDT Current smoker completed Curre nt smoker [facility] Vital Signs ID Date Data Source UNK Name Value Range Interpretation Code Description Data Source(s) Body weight 138.0 [lb_av] 138.0 [lb_av] eCW1 ([facility]) Body height 69 [in_i] 69 [in_i] eCW1 ([facility]) Body mass index (BMI) [Ratio] 20.38 kg/m2 20.38 kg/m2 eCW1 ([facility]) Heart rate 117 /min 117 /min eCW1 ([facility]) Respiratory rate 18 /min 18 /min eCW1 ([facility]) Body temperature 98.0 [degF] 98.0 [degF] eCW1 ( [facility]) Systolic blood pressure 114 mm[Hg] 114 mm[Hg] e CW1 ([facility]) Diastolic blood pressure 64 mm[Hg] 64 mm[Hg] eCW1 ([facility]) Diastolic blood pressure 60 mm[Hg] 60 mm[Hg] eCW1 ([facility]) Body weight 141.4 [lb_av] 141.4 [lb_av] eCW1 ([facility]) Body height 69 [in_i] 69 [in_i] eCW1 ([facility]) Body mass index (BMI) [Ratio] 20.88 kg/m2 20.88 kg/m2 eCW1 ([facility]) Heart rate 130 /min 130 /min eCW1 ([facility]) Respiratory rate 18 /min 18 /min eCW1 ([facility]) Body temperature 98.7 [degF] 98.7 [degF] eCW1 ( [facility]) Systolic blood pressure 110 mm[Hg] 110 mm[Hg] e CW1 ([facility]) Systolic blood pressure 100 mm[Hg] 100 mm[Hg] [facility] Heart rate 72 /min 72 /min [facility] Respiratory rate 16 /min 16 /min [facility] Body height 172.7 cm 172.7 cm [facility] Body weight 60.328 kg 60.328 kg [facility] Body mass index (BMI) [Ratio] 20.22 kg/m2 20.22 kg/m2 [facility] Diastolic blood pressure 60 mm[Hg] 60 mm[Hg] [facility] Systolic blood pressure 101 mm[Hg] 101 mm[Hg] [facility] Diastolic blood pressure 71 mm[Hg] 71 mm[Hg] [facility] Heart rate 69 /min 69 /min [facility] Body temperature 36.94 Yisel 36.94 Yisel [facility] Respiratory rate 18 /min 18 /min [facility] Oxygen saturation in Arterial blood by Pulse oximetry 92 % 92 % [facility] Body weight 61.8 kg 61.8 kg [facility] Body mass index (BMI) [Ratio] 20.12 kg/m2 20.12 kg/m2 [facility] Body height 175.3 cm 175.3 cm [facility] Systolic blood pressure 113 mm[Hg] 113 mm[Hg] [facility] Diastolic blood pressure 64 mm[Hg] 64 mm[Hg] [facility] Heart rate 62 /min 62 /min [facility] Respiratory rate 18 /min 18 /min [facility] Oxygen saturation in Arterial blood by Pulse oximetry 97 % 97 % [facility] Systolic blood pressure 104 mm[Hg] 104 mm[Hg] [facility] Diastolic blood pressure 68 mm[Hg] 68 mm[Hg] [facility] Heart rate 67 /min 67 /min [facility] Respiratory rate 16 /min 16 /min [facility] Oxygen saturation in Arterial blood by Pulse oximetry 99 % 99 % [facility] room air Systolic blood pressure 136 mm[Hg] 136 mm[Hg] [facility] Diastolic blood pressure 90 mm[Hg] 90 mm[Hg] [facility] Heart rate 69 /min 69 /min [facility] Body height 175.3 cm 175.3 cm [facility] Body weight 64.864 kg 64.864 kg [facility] Body mass index (BMI) [Ratio] 21.12 kg/m2 21.12 kg/m2 [facility] Oxygen saturation in Arterial blood by Pulse oximetry 99 % 99 % [facility] Heart rate 86 /min 86 /min [facility] ([facility] ) Squires body weight 160 [lb_av] 160 [lb_av] MEDEN T ([facility]) Body weight 65.318 kg 65.318 kg [facility] ([facility]) Body height 69 [in_i] 69 [in_i] [facility] ([facility]) 5'9" Body weight 144.00 [lb_av] 144.00 [lb_av] [facility] Body mass index (BMI) [Ratio] 21.3 kg/m2 21.3 k g/m2 [facility] ([facility]) Body surface area Derived from formula 1.80 m2 1.80 m2 [facility] ([facility]) Diastolic blood pressure 70 mm[Hg] 70 mm[Hg] [facility] ([facility]) Systolic blood pressure 106 mm[Hg] 106 mm[Hg] [facility] Body height 175.3 cm 175.3 cm [facility] Systolic blood pressure 136 mm[Hg] 136 mm[Hg] [facility] Diastolic blood pressure 80 mm[Hg] 80 mm[Hg] [facility] Heart rate 75 /min 75 /min [facility] Body weight 67.586 kg 67.586 kg [facility] Body mass index (BMI) [Ratio] 22.00 kg/m2 22.00 kg/m2 [facility] Oxygen saturation in Arterial blood by Pulse oximetry 97 % 97 % [facility] Respiratory rate 16 /min 16 /min [facility] Systolic blood pressure 120 mm[Hg] 120 mm[Hg] [facility] Diastolic blood pressure 72 mm[Hg] 72 mm[Hg] [facility] Heart rate 74 /min 74 /min [facility] Body temperature 36.39 Yisel 36.39 Yisel [facility] Oxygen saturation in Arterial blood by Pulse oximetry 99 % 99 % [facility] Body height 175.3 cm 175.3 cm [facility] Body weight 65.318 kg 65.318 kg [facility] Body mass index (BMI) [Ratio] 21.27 kg/m2 21.27 kg/m2 [facility] Systolic blood pressure 152 mm[Hg] 152 mm[Hg] [facility] Diastolic blood pressure 100 mm[Hg] 100 mm[Hg] [facility] Heart rate 81 /min 81 /min [facility] Body height 175.3 cm 175.3 cm [facility] Body weight 65.499 kg 65.499 kg [facility] Body mass index (BMI) [Ratio] 21.32 kg/m2 21.32 kg/m2 [facility] Oxygen saturation in Arterial blood by Pulse oximetry 98 % 98 % [facility] Body weight 143 [lb_av] 143 [lb_av] W1 ([facility]) Body height 69 [in_i] 69 [in_i] eCW1 ([facility]) Body mass index (BMI) [Ratio] 21.12 kg/m2 21.12 kg/m2 [facility] ([facility]) Heart rate 90 /min 90 /min W1 ([facility]) Respiratory rate 18 /min 18 /min W1 ([facility]) Body temperature 97.1 [degF] 97.1 [degF] eCW1 ( [facility]) Systolic blood pressure 144 mm[Hg] 144 mm[Hg] e CW1 ([facility]) Diastolic blood pressure 84 mm[Hg] 84 mm[Hg] eCW1 ([facility]) Systolic blood pressure 142 mm[Hg] 142 mm[Hg] M EDENT ([facility]) Diastolic blood pressure 70 mm[Hg] 70 mm[Hg] MEDENT ([facility]) Body height 69 [in_i] 69 [in_i] MEDENT ([facility]) 5'9" Body weight 143.25 [lb_av] 143.25 [lb_av] MEDEN T ([facility]) Body mass index (BMI) [Ratio] 21.2 kg/m2 21.2 k g/m2 [facility] ([facility]) Squires body weight 160 [lb_av] 160 [lb_av] MEDEN T ([facility]) Body weight 64.978 kg 64.978 kg [facility] ([facility]) Body surface area Derived from formula 1.79 m2 1.79 m2 [facility] ([facility]) Diastolic blood pressure 76 mm[Hg] 76 mm[Hg] eCW1 ([facility]) Systolic blood pressure 128 mm[Hg] 128 mm[Hg] e CW1 ([facility]) Heart rate 85 /min 85 /min eCW1 ([facility]) Respiratory rate 18 /min 18 /min eCW1 ([facility]) Body weight 148 [lb_av] 148 [lb_av] eCW1 ([facility]) Body height 69 [in_i] 69 [in_i] eCW1 ([facility]) Body temperature 97.6 [degF] 97.6 [degF] eCW1 ( [facility]) Body mass index (BMI) [Ratio] 21.85 kg/m2 21.85 kg/m2 eCW1 ([facility]) Patient Treatment Plan of Care Planned Activity Planned Date Details Description Data Source (s) Oxycodone Hydrochloride 15 MG Oral Tablet 06/26/2021 12:00:00 AM ED T eCW1 ([facility]) Acetaminophen 325 MG / Hydrocodone Bitartrate 10 MG Or al Tablet 06/26/2021 12:00:00 AM EDT eCW1 ([facility]) Oxycodone Hydrochloride 15 MG Oral Tablet 06/26/2021 12:00:00 AM ED T eCW1 ([facility]) Acetaminophen 325 MG / Hydrocodone Bitartrate 10 MG Or al Tablet 06/26/2021 12:00:00 AM EDT eCW1 ([facility]) Metoprolol Tartrate 25 MG Oral Tablet 06/19/2021 12:00:00 AM EDT eCW1 ([facility]) Folic Acid 1 MG Oral Tablet 04/24/2021 12:00:00 AM EDT [facility] Daily Hoa (THERAGRAN) per tablet 04/24/2021 12:00:00 AM EDT [facility] Aspirin 81 MG Delayed Release Oral Tablet 04/24/2021 12:00:00 AM ED T [facility] Warfarin Sodium 1 MG Oral Tablet 04/23/2021 12:00:00 AM EDT [facility] Metoprolol Tartrate 25 MG Oral Tablet 04/23/2021 12:00:00 AM EDT [facility] ferrous gluconate 324 MG Oral Tablet 04/23/2021 12:00:00 AM EDT [facility] Acetaminophen 325 MG Oral Tablet 04/23/2021 12:00:00 AM EDT [facility] Docusate Sodium 100 MG Oral Capsule 04/22/2021 09:00:00 PM EDT [facility] POLYETHYLENE GLYCOL 3350 142 MG/ML Oral Solution 04/22/2021 07:00:0 0 PM EDT [facility] ondansetron (ZOFRAN) injection 4 mg 04/22/2021 06:22:27 PM EDT [facility] potassium chloride SA (K-DUR,KLOR-CON) CR tablet 40 mE q 04/22/2021 06:22:27 PM EDT Health system potassium chloride SA (K-DUR,KLOR-CON) CR tablet 20 mE q 04/22/2021 06:22:27 PM EDT Health system potassium chloride SA (K-DUR,KLOR-CON) CR tablet 20 mE q 04/22/2021 06:22:27 PM EDT Health system potassium chloride SA (K-DUR,KLOR-CON) CR tablet 10 mE q 04/22/2021 06:22:27 PM EDT Health system 10 ML Atropine Sulfate 0.1 MG/ML Prefilled Syringe 04/22/2021 06 :22:26 PM EDT [facility] Aluminum Hydroxide 64 MG/ML Oral Suspension 04/22/2021 06:22:26 PM EDT [facility] Bisacodyl 10 MG Rectal Suppository 04/22/2021 06:22:26 PM EDT [facility] Nitroglycerin 0.4 MG Sublingual Tablet 04/22/2021 06:22:26 PM EDT [facility] 50 ML Magnesium Sulfate 40 MG/ML Injection 04/22/2021 06:22:26 PM E DT [facility] 50 ML Magnesium Sulfate 40 MG/ML Injection 04/22/2021 06:22:26 PM E DT [facility] 50 ML Magnesium Sulfate 40 MG/ML Injection 04/22/2021 06:22:26 PM E DT [facility] magnesium sulfate 1 g in dextrose 5% infusion (premix) 04/22/2021 06:22:26 PM EDT Health system Albuterol 0.83 MG/ML Inhalant Solution 04/22/2021 06:22:25 PM EDT [facility] Patient on Coumadin during hospitalizati on. (To order Coumadin on discharge click the don t prescribe button and go to new orders on discharge section. Coumadin can be ordered there. Alternatively, reconcile the pre admission Coumadin dose if it appears on the list below) 04/17/2021 11:12:17 AM EDT [facility] ezetimibe 10 MG Oral Tablet 02/06/2021 12:00:00 AM EDT [facility] 24 HR Nicotine 0.292 MG/HR Transdermal Patch 02/06/2021 12:00:00 AM EDT [facility] Furosemide 20 MG Oral Tablet 02/06/2021 12:00:00 AM EDT [facility] Lisinopril 5 MG Oral Tablet 01/07/2021 12:00:00 AM EDT [facility] Aspirin 81 MG Delayed Release Oral Tablet 12/09/2020 12:00:00 AM ED T [facility] Furosemide 40 MG Oral Tablet 12/09/2020 12:00:00 AM EDT [facility] atorvastatin 80 MG Oral Tablet 12/06/2020 12:00:00 AM EDT eCW1 ([facility]) 12 HR Bupropion Hydrochloride 100 MG Extended Release Oral Tablet 12/06/2020 12:00:00 AM EDT eCW1 ([facility]) atorvastatin 80 MG Oral Tablet 12/06/2020 12:00:00 AM EDT eCW1 ([facility]) 12 HR Bupropion Hydrochloride 100 MG Extended Release Oral Tablet 12/06/2020 12:00:00 AM EDT eCW1 ([facility]) albuterol (PROVENTIL HFA;VENTOLIN HFA) 108 (90 Base) M CG/ACT inhaler 12/06/2020 12:00:00 AM EDT Health system atorvastatin 80 MG Oral Tablet 12/06/2020 12:00:00 AM EDT [facility] gabapentin 800 MG Oral Tablet 12/06/2020 12:00:00 AM EDT [facility] Sumatriptan 100 MG Oral Tablet 12/06/2020 12:00:00 AM EDT [facility] atorvastatin 80 MG Oral Tablet 12/06/2020 12:00:00 AM EDT eCW1 ([facility]) 12 HR Bupropion Hydrochloride 100 MG Extended Release Oral Tablet 12/06/2020 12:00:00 AM EDT eCW1 ([facility]) 12 HR Bupropion Hydrochloride 100 MG Extended Release Oral Tablet 12/06/2020 12:00:00 AM EDT Health system atorvastatin 80 MG Oral Tablet 12/06/2020 12:00:00 AM EDT eCW1 ([facility]) 12 HR Bupropion Hydrochloride 100 MG Extended Release Oral Tablet 12/06/2020 12:00:00 AM EDT eCW1 ([facility]) Amitriptyline Hydrochloride 100 MG Oral Tablet 11/25/2020 12:00:00 AM EDT [facility] 168 HR Buprenorphine 0.02 MG/HR Transdermal Patch 11/21/2020 12: 00:00 AM EST [facility] 28 ACTUAT Fluticasone propionate 0.1 MG/ACTUAT Dry Pow tasneem Inhaler [Flovent] 11/06/2020 12:00:00 AM EST [facility] SPIRIVA RESPIMAT 2.5 MCG/ACT AERS 11/06/2020 12:00:00 AM EST [facility] 28 ACTUAT tiotropium 0.0025 MG/ACTUAT Metered Dose Inh aler [Spiriva] 11/05/2020 12:00:00 AM EST eCW1 ([facility]) 28 ACTUAT Fluticasone propionate 0.1 MG/ACTUAT Dry Pow tasneem Inhaler [Flovent] 11/05/2020 12:00:00 AM EST eCW1 ([facility]) Aspirin 81 MG Delayed Release Oral Tablet 11/05/2020 12:00:00 AM ES T eCW1 ([facility]) 28 ACTUAT tiotropium 0.0025 MG/ACTUAT Metered Dose Inh aler [Spiriva] 11/05/2020 12:00:00 AM EST eCW1 ([facility]) 28 ACTUAT Fluticasone propionate 0.1 MG/ACTUAT Dry Pow tasneem Inhaler [Flovent] 11/05/2020 12:00:00 AM EST eCW1 ([facility]) Aspirin 81 MG Delayed Release Oral Tablet 11/05/2020 12:00:00 AM ES T eCW1 ([facility]) 28 ACTUAT tiotropium 0.0025 MG/ACTUAT Metered Dose Inh aler [Spiriva] 11/05/2020 12:00:00 AM EST eCW1 ([facility]) 28 ACTUAT Fluticasone propionate 0.1 MG/ACTUAT Dry Pow tasneem Inhaler [Flovent] 11/05/2020 12:00:00 AM EST eCW1 ([facility]) Aspirin 81 MG Delayed Release Oral Tablet 11/05/2020 12:00:00 AM ES T eCW1 ([facility]) 28 ACTUAT tiotropium 0.0025 MG/ACTUAT Metered Dose Inh aler [Spiriva] 11/05/2020 12:00:00 AM EST eCW1 ([facility]) 28 ACTUAT Fluticasone propionate 0.1 MG/ACTUAT Dry Pow tasneem Inhaler [Flovent] 11/05/2020 12:00:00 AM EST eCW1 ([facility]) Aspirin 81 MG Delayed Release Oral Tablet 11/05/2020 12:00:00 AM ES T eCW1 ([facility]) Hydrocodone Bitartrate 10 MG / Ibuprofen 200 MG Oral Tablet [facility] Ibuprofen 200 MG Oral Tablet [facility]
--- OUTSIDE RECORDS SUMMARY | 2021-07-09 15:42 | CCD ---
Author Author [facility] Organization [facility] Address Unknown Phone Unavailable Care Team Providers Care Zinc Miner Name Role Phone Eden, Chandler Unavailable Unavailable Eden, Chandler Unavailable Unavailable Eden, Chandler Unavailable Unavailable Eden, Chandler Unavailable Unavailable Eden, Chandler Unavailable Unavailable Eden, Chandler Unavailable Unavailable Eden, Chandler Unavailable Unavailable Eden, Chandler Unavailable Unavailable Eden, Chandler Unavailable Unavailable Eden, Chandler Unavailable Unavailable Eden, Chandler Unavailable Unavailable Eden, Chandler Unavailable Unavailable Eden, Chandler Unavailable Unavailable Eden, Chandler Unavailable Unavailable Eden, Chandler Unavailable Unavailable Eden, Chandler Unavailable Unavailable Eden, Chandler Unavailable Unavailable Eden, Chandler Unavailable Unavailable Eden, Chandler Unavailable Unavailable Eden, Chandler Unavailable Unavailable Eden, Chandler Unavailable Unavailable Eden, Chandler Unavailable Unavailable Eden, Chandler Unavailable Unavailable Eden, Chandler Unavailable Unavailable Eden, Chandler Unavailable Unavailable Eden, Chandler Unavailable Unavailable Eden, Chandler Unavailable Unavailable Eden, Chandler Unavailable Unavailable Eden, Chandler Unavailable Unavailable Eden, Chandler Unavailable Unavailable Eden, Chandler Unavailable Unavailable Eden, Chandler Unavailable Unavailable Eden, Chandler Unavailable Unavailable Eden, Chandler Unavailable Unavailable Eden, Chandler Unavailable Unavailable Eden, Chandler Unavailable Unavailable Eden, Chandler Unavailable Unavailable Eden, Chandler Unavailable Unavailable Eden, Chandler Unavailable Unavailable Eden, Chandler Unavailable Unavailable Eden, Chandler Unavailable Unavailable Eden, Chandler Unavailable Unavailable Eden, Chandler Unavailable Unavailable Eden, Chandler Unavailable Unavailable Eden, Chandler Unavailable Unavailable Eden, Chandler Unavailable Unavailable Eden, Chandler Unavailable Unavailable Eden, Chandler Unavailable Unavailable Eden, Chandler Unavailable Unavailable Eden, Chandler Unavailable Unavailable Eden, Chandler Unavailable Unavailable Eden, Chandler Unavailable Unavailable Eden, Chandler Unavailable Unavailable Eden, Chandler Unavailable Unavailable Eden, Chandler Unavailable Unavailable Eden, Chanlder Unavailable Unavailable Eden, Chandler Unavailable Unavailable Eden, Chandler Unavailable Unavailable Eden, Chandler Unavailable Unavailable Eden, Chandler Unavailable Unavailable Eden, Chandler Unavailable Unavailable LATOYA HOUSE MD Unavailable [...] HOUSE MD Unavailable Unavailable Detor, M Keily VEST BASTER Unavailable Unavailable Detor, M Keily VEST BASTER Unavailable Unavailable Detor, M Keily VEST BASTER Unavailable Unavailable Detor, M Keily VEST BASTER Unavailable Unavailable Detor, M Keily VEST BASTER Unavailable Unavailable Detor, M Keily VEST BASTER Unavailable Unavailable Detor, M Keily VEST BASTER Unavailable Unavailable Detor, M Keily VEST BASTER Unavailable Unavailable Detor, M Keily VEST BASTER Unavailable Unavailable Detor, M Keily VEST BASTER Unavailable Unavailable Detor, M Keily VEST BASTER Unavailable Unavailable Detor, M Keily VEST BASTER Unavailable Unavailable Detor, M Keily VEST BASTER Unavailable Unavailable Detor, M Keily VEST BASTER Unavailable Unavailable Detor, M Keily VEST BASTER Unavailable Unavailable Detor, M Keily VEST BASTER Unavailable Unavailable Detor, M Keily VEST BASTER Unavailable Unavailable Detor, M Keily VEST BASTER Unavailable Unavailable Detor, M Keily VEST BASTER Unavailable Unavailable Detor, M Keily VEST BASTER Unavailable Unavailable Detor, M Keily VEST BASTER Unavailable Unavailable Detor, M Keily VEST BASTER Unavailable Unavailable Detor, M Keily VEST BASTER Unavailable Unavailable Detor, M Keily VEST BASTER Unavailable Unavailable Detor, M Keily VEST BASTER Unavailable Unavailable Detor, M Keily VEST BASTER Unavailable Unavailable Detor, M Keily VEST BASTER Unavailable Unavailable Detor, M Keily VEST BASTER Unavailable Unavailable Detor, M Keily VEST BASTER Unavailable Unavailable Detor, M Keily VEST BASTER Unavailable Unavailable Detor, M Keily VEST BASTER Unavailable Unavailable Detor, M Keily VEST BASTER Unavailable Unavailable Detor, M Keily VEST BASTER Unavailable Unavailable Detor, M Keily VEST BASTER Unavailable Unavailable Detor, M Keily VEST BASTER Unavailable Unavailable Detor, M Keily VEST BASTER Unavailable Unavailable Detor, M Keily VEST BASTER Unavailable Unavailable Simeon CORRIGAN Unavailable Unavailable [place], V JENNIFER PA-C Unavailable Unavailable [place], V JENNIFER PA-C Unavailable Unavailable [place], V JENNIFER PA-C Unavailable Unavailable Laurence, V JENNIFER PA-C Unavailable Unavailable [place], V JENNIFER PA-C Unavailable Unavailable Laurence, V JENNIFER PA-C Unavailable Unavailable [place], V JENNIFER PA-C Unavailable Unavailable [place], V JENNIFER PA-C Unavailable Unavailable Laurence, V JENNIFER PA-C Unavailable Unavailable [place], V JENNIFER PA-C Unavailable Unavailable [place], V JENNIFER PA-C Unavailable Unavailable Laurence, V JENNIFER PA-C Unavailable Unavailable [place], V JENNIFER PA-C Unavailable Unavailable [place], V JENNIFER PA-C Unavailable Unavailable Godwin, N Azalea 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 Unavailable Unavailable [place], N [place] 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 Unavailable Unavailable [place], N [place] 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 Unavailable Unavailable Godwin, N [place] 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 Unavailable Unavailable [place], N [place] 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 Unavailable Unavailable [place], N [place] 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 Unavailable Unavailable Godwin, N [place] 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 Unavailable Unavailable [place], N [place] 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 Unavailable Unavailable [place], N [place] 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 Unavailable Unavailable Godwin, N [place] 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 Unavailable Unavailable Godwin, N [place] 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 Unavailable Unavailable [place], N [place] 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 Unavailable Unavailable Godwin, N [place] 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 Unavailable Unavailable [place], N [place] 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 Unavailable Unavailable [place], N [place] 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 Unavailable Unavailable Godwin, N [place] 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 Unavailable Unavailable Godwni, N [place] 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 Unavailable Unavailable [place], N [place] 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 Unavailable Unavailable [place], N [place] 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 Unavailable Unavailable God[place], N [place] 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 Unavailable Unavailable [place], N [place] 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 Unavailable Unavailable Godwin, N [place] 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 Unavailable Unavailable Godwin, N [place] 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 Unavailable Unavailable Godwin, N [place] 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 Unavailable Unavailable Godwin, N [place] 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 Unavailable Unavailable Godwin, N [place] 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 Unavailable Unavailable Godwin, N [place] 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 Unavailable Unavailable [place], N [place] 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 Unavailable Unavailable [place], N [place] 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 Unavailable Unavailable Godwin, N [place] 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 Unavailable Unavailable [place], N [place] 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 Unavailable Unavailable [place], N [place]alea 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 Unavailable Unavailable [place], N [place] 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 Unavailable Unavailable Cooper, L Virginia RPA Unavailable [...] L [place] RPA Unavailable Unavailable Cooper, L Virginai RPA Unavailable Unavailable Cooper, L [place] RPA Unavailable Unavailable Cooper, L [place] RPA Unavailable Unavailable Cooper, L [place] RPA Unavailable Unavailable Cooper, L [place] RPA Unavailable Unavailable Cooper, L [place] RPA Unavailable Unavailable Cooper, L [place] RPA Unavailable Unavailable Cooper, L [place] RPA Unavailable Unavailable Eden, Chandler Unavailable Unavailable Eden, Chandler Unavailable Unavailable Eden, Chandler Unavailable Unavailable Eden, Chandler Unavailable Unavailable Eden, Chandler Unavailable Unavailable Eden, Chandler Unavailable Unavailable Eden, Chandler Unavailable Unavailable Eden, Chandler Unavailable Unavailable Eden, Chandler Unavailable Unavailable Eden, Chandler Unavailable Unavailable Eden, Chandler Unavailable Unavailable Eden, Chandler Unavailable Unavailable Eden, Chandler Unavailable Unavailable Eden, Chandler Unavailable Unavailable Eden, Chandler Unavailable Unavailable Eden, Chandler Unavailable Unavailable Eden, Chandler Unavailable Unavailable Eden, Chandler Unavailable Unavailable Eden, Chandler Unavailable Unavailable Eden, Chandler Unavailable Unavailable Eden, Chandler Unavailable Unavailable Eden, Chandler Unavailable Unavailable Eden, Chandler Unavailable Unavailable Eden, Chandler Unavailable Unavailable Eden, Chandler Unavailable Unavailable Eden, Chandler Unavailable Unavailable Eden, Chandler Unavailable Unavailable Eden, Chandler Unavailable Unavailable Eden, Chandler Unavailable Unavailable Eden, Chandler Unavailable Unavailable Eden, Chandler Unavailable Unavailable Eden, Chandler Unavailable Unavailable Eden, Chandler Unavailable Unavailable Eden, Chandler Unavailable Unavailable Eden, Chandler Unavailable Unavailable Eden, Chandler Unavailable Unavailable Eden, Chandler Unavailable Unavailable Eden, Chandler Unavailable Unavailable Eden, Chandler Unavailable Unavailable Eden, Chandler Unavailable Unavailable Eden, Chandler Unavailable Unavailable Eden, Chandler Unavailable Unavailable Eden, Chandler Unavailable Unavailable Eden, Chandler Unavailable Unavailable Eden, Chandler Unavailable Unavailable Eden, Chandler Unavailable Unavailable Eden, Chandler Unavailable Unavailable Eden, Chandler Unavailable Unavailable Eden, Chandler Unavailable Unavailable Eden, Chandler Unavailable Unavailable Eden, Chandler Unavailable Unavailable Eden, Chandler Unavailable Unavailable Eden, Chandler Unavailable Unavailable Eden, Chandler Unavailable Unavailable Eden, Chandler Unavailable Unavailable Eden, Chandler Unavailable Unavailable Eden, Chandler Unavailable Unavailable Eden, Chandler Unavailable Unavailable Eden, Chandler Unavailable Unavailable Eden, Chandler Unavailable Unavailable Eden, Chandler Unavailable Unavailable WetterhahnMauricio MD Unavailable Unavailable [...] Unavailable Toby Parish MD Unavailable Unavailable Toby Parihs MD Unavailable Unavailable Re-disclosure Warning The records [...] is protected by Article 27-F of the [facility] Public Health law. If you continue you may have access to information: Regarding HIV / AIDS; Provided by facilities licensed or operated by the [facility] Office of Mental Health; or Provided by the [facility] Office for People With Developmental Disabilities. If such information is present, then the following [facility] mandated warning applies: This information has [...] law may result in a fine or alf sentence or both. A general authorization for the release of medical or other information is NOT sufficient authorization for further disc losure. Allergies and Adverse Reactions Type Description Substance Reaction Status Data Source(s ) Propensity to adverse reactions CODEINE Codeine Rash Medium Ac tive [facility] Medium Encounters Encounter Providers Location Date Indications Data Source(s ) Outpatient Attender: JENNIFER BETH.KENNY-SJP.KENNY 10:55:35 AM EDT [facility] Outpatient Attender: JENNIFER LAMAR-SJP.KENNY 12:00:00 AM EDT [facility] [address] [facility] [address] 06/26/2021 12:00:00 AM EDT eCW1 ([facility]) Outpatient SJP.CT-SJP.SYR 06/20/2021 01:01:19 PM EDT [facility] Unknown [address] [facility] [facility] [address] 06/20/2021 12:00:00 AM EDT eCW1 ([facility]) [place] [address] [facility] [facility] [address] 06/19/2021 12:00:00 AM EDT eCW1 ([facility]) [place] [address] [facility] [address] 05/28/2021 12:00:00 AM EDT eCW1 ([facility]) BF-BF 05/21/2021 06:14:57 PM EDT [facility] Outpatient SJP.KENNY-SJP.KENNY 05/21/2021 12:00:00 AM EDT [facility] [place] [address] [facility] [facility] [address] 05/14/2021 12:00:00 AM EDT eCW1 ([facility]) Outpatient Referrer: Toby MOJICACT-SJP.SYR 04/14 11:34:18 AM EDT [facility] Outpatient Attender: Azalea HUFFPMaria CKENNY-SJP.KENNY 021 12:00:00 AM EDT - 04/28/2021 03:49:03 PM EDT [facility] Outpatient SJRAOUL-SJErin.KENNY 04/28/2021 12:00:00 AM EDT [facility] Inpatient Admitter: Chandler CorriganReferrer: ROWAN Padilla MD ES1-SJ.ANES 04/17/2021 07:21:51 AM EDT [facility] Inpatient Attender: Chandler CorriganAdmitter: Chandler Corrigan ES1 -D4CVS 04/17/2021 05:18:00 AM EDT - 04/23/2021 05:58:00 PM EDT [facility] Patient discharged. Outpatient Attender: Chandler CorriganReferrer: Chandler Corrigan ES1 -SJ.PL 04/14/2021 09:23:36 AM EDT - 04/14/2021 11:59:00 PM EDT [facility] Patient discharged. Outpatient Attender: Chandler CorriganReferrer: Chandler Corrigan MOB -MOB.PAT 04/14/2021 08:39:44 AM EDT - 04/14/2021 10:06:57 AM EDT [facility] Outpatient Referrer: FAITH HARRIS-MOB.PAT 04/14/2021 08:25:17 AM EDT - 04/14/2021 08:25:24 AM EDT [facility] Outpatient Referrer: Keily Block VEST BASTER 04/08/2021 08:33:19 A M EDT [facility] Outpatient Attender: Chandler KIMBALL.CSA 12:00:00 AM EDT - 04/07/2021 03:20:13 PM EDT [facility] Unknown [address] [address] 03/04/2021 12:00:00 AM EDT eCW1 ([facility]) Outpatient WILLARD-SJP.KENNY 02/07/2021 11:51:01 AM EDT [facility] Outpatient Attender: JENNIFER LAMAR-SJP.KENNY 01:22:41 PM EDT - 02/06/2021 02:53:39 PM EDT [facility] Outpatient Attender: Virginia Shi/Edis/Kings/Robel fernandez 01/15/2021 01:00:00 PM EDT [facility] ([facility]) Outpatient Attender: JENNIFER BETH.KENNY-SJP.KENNY 11/2020 01:57:32 PM EDT - 01/13/2021 03:27:27 PM EDT [facility] Outpatient Attender: JENNIFER Kenferrer: Mercedes Cuellar MD SJP.KENNY-SJP.KENNY 01/06/2021 02:29:51 PM EDT - 01/06/2021 03:53:36 PM EDT [facility] Outpatient Attender: SUSAN HOUSE MDAdm itter: SUSAN HOUSE MDReferrer: Toby Parish MD ES1-SJ.CVAU 12/10/2020 09:18:00 AM EDT - 12/10/2020 04:58:00 PM EDT [facility] Patient discharged. Outpatient Attender: Toby Parish MD SJP.KENNY-SJP.KENNY 11/12 12:00:00 AM EDT - 12/09/2020 11:50:14 AM EDT [facility] [address] [address] 12/06/2020 12:00:00 AM EDT eCW1 ([facility]) Outpatient Attender: Virginia Shi/Edsi/Kings/Robel fernandez 11/26/2020 01:45:00 PM EDT [facility] ([facility], ) [place] [address] [address] 11/08/2020 12:00:00 AM EST eCW1 ([facility]) [place] [address] [address] 11/05/2020 12:00:00 AM EST eCW1 ([facility]) Out[place] [address] [address] 11/05/2020 12:00:00 AM EST eCW1 ([facility]) [place] [address] [address] 11/04/2020 12:00:00 AM EST eCW1 ([facility]) Unknown [address] [facility] [address] 06/25/2020 12:00:00 AM EDT eCW1 ([facility]) Immunizations Vaccine Date Status Description Data Source(s) 207 12/18/2020 12:00:00 AM EDT completed <td I D="[id number]">Covid-19 (Moderna)</td><td>12/18/2020, 11/12/2020</td><td></td> [facility] COVID-19 VACCINE Moderna 12/18/2020 12:00:00 AM EDT completed NYSIIS Vaccine Series Complete: YESThis Data wa s Submitted to [facility] Via [employer]. 207 11/12/2020 12:00:00 AM EST completed <td I D="[id number]">Covid-19 (Moderna)</td><td>12/18/2020, 11/12/2020</td><td></td> [facility] COVID-19 VACCINE Moderna 11/12/2020 12:00:00 AM EST completed NYSIIS Vaccine Series Complete: NOThis Data was Submitted to [facility] Via [employer]. Medications Medication Brand Name Start Date Product [...] activ e oxyCODONE HCl 15 MG eCW1 ([facility]) Acetaminophen 325 MG / Hydrocodone Robinson trate 10 MG Oral Tablet HYDROcodone- Acetaminophen 10-325 MG HYDROcodone-Acetaminophen 10-325 MG 06/26/2021 12:00:0 0 AM EDT 1.0 {tablet_as_needed} active HYDROcodone-Acetaminophen 10- 325 MG eCW1 ([facility]) Oxycodone Hydrochloride 15 MG Oral Tablet oxyCODONE HC l 15 MG oxyCODONE HCl 15 MG 06/26/2021 12:00:00 AM EDT 1.0 {tablet} activ e oxyCODONE HCl 15 MG eCW1 ([facility]) Acetaminophen 325 MG / Hydrocodone Robinson trate 10 MG Oral Tablet HYDROcodone- Acetaminophen 10-325 MG HYDROcodone-Acetaminophen 10-325 MG 06/26/2021 12:00:0 0 AM EDT 1.0 {tablet_as_needed} active HYDROcodone-Acetaminophen 10- 325 MG eCW1 ([facility]) 25 mg 06/20/2021 12:00:00 AM EDT tablet 60 TAKE ONE TABLET BY MOUTH TWICE A DAY TAKE ONE TABLET BY MOUTH TWICE A DAY SOLD: 06/24/2021 [facility] Metoprolol Tartrate 25 MG Oral Tablet Metoprolol Tartrate 25 MG 06/19/2021 12:00:00 AM EDT 1.0 {tablet_with_food} active Metoprolol Tartrate 25 MG eCW1 ([facility]) Metoprolol Tartrate 25 MG Oral Tablet Metoprolol Tartrate 25 MG 06/19/2021 12:00:00 AM EDT 1.0 {tablet_with_food} active Metoprolol Tartrate 25 MG eCW1 ([facility]) Metoprolol Tartrate 25 MG Oral Tablet Metoprolol Tartrate 25 MG 06/19/2021 12:00:00 AM EDT 1.0 {tablet_with_food} active Metoprolol Tartrate 25 MG eCW1 ([facility]) 1 mg 06/13/2021 12:00:00 AM EDT [...] TABLET BY MOUTH EVERY DAY SOLD: 06/04/2021 [facility] gabapentin 800 MG Oral Tablet GABAPENTIN [...] tablet (81 mg total) by mouth daily [facility] Daily Hoa (THERAGRAN) per tablet 22085-052-14 04/24/2021 12:00:00 AM EDT 1 {tbl} Oral active Take 1 tablet by mouth d aily [facility] Folic Acid 1 MG Oral Tablet folic acid (FOLVITE) 1 MG tablet folic acid (FOLVITE) 1 MG tablet 04/24/2021 12:00:00 AM EDT 1 mg Oral active Take 1 tablet (1 mg total) by mouth daily [facility] Warfarin Sodium 2 MG Oral Tablet warfarin (COUMADIN) t ablet 1 mg warfarin (COUMADIN) tablet 1 mg 04/23/2021 05:00:00 PM EDT 1 mg Oral completed 1 mg, Oral, [id number], First dose on Wed04/23/21 at 1700, For 1 dose
For administration and preparation considerations, refer to Hazardous Drugs in the Workplace Policy on Intr[employer].
[facility] Medication administered onsite Metoprolol Tartrate 25 MG Oral Tablet me toprolol tartrate (LOPRESSOR) tablet 12.5 mg metoprolol tartrate (LOPRESSOR) tablet 12.5 mg 11:00:00 AM EDT 12.5 mg Oral active 12.5 mg, Oral, 2 times daily, First dose on Wed04/23/21 at 1100
Hold for SBP less than 100, HR less than 60
[facility] Medication administered onsite Daily Hoa (THERAGRAN) 1 tablet 50068-774-02 04/23/2021 09:00:00 AM EDT 1 {tbl} Oral active 1 tablet, Oral, Daily, First dose on Wed04/23/21 at 0900, Post-op [facility] Medication administered onsite Folic Acid 1 MG Oral Tablet folic acid (FOLVITE) table t 1 mg folic acid (FOLVITE) tablet 1 mg 04/23/2021 09:00:00 AM EDT 1 mg Oral active 1 mg, Oral, Daily, First dose on Wed04/23/21 at 0900, Post-op [facility] Medication administered onsite Warfarin Sodium 1 MG Oral Tablet warfarin (COUMADIN) 1 MG tablet warfarin (COUMADIN) 1 MG tablet 04/23/2021 12:00:00 AM EDT 1 mg Oral active Take 1 tablet (1 mg total) by mouth daily [facility] Metoprolol Tartrate 25 MG Oral Tablet me toprolol tartrate (LOPRESSOR) 25 MG tablet metoprolol tartrate (LOPRESSOR) 25 MG tablet 04/23/2021 12:0 0:00 AM EDT 12.5 mg Oral active Take 0.5 tablets (12.5 mg total) by mouth daily [facility] ferrous gluconate 324 MG Oral Tablet ferrous gluconate (FERGON) 324 MG tablet ferrous gluconate (FERGON) 324 MG tablet 04/23/2021 12:00:00 AM EDT 324 mg Oral active Take 1 tablet (324 m g total) by mouth daily with breakfast [facility] Acetaminophen 325 MG Oral Tablet acetaminophen (TYLENO L) 325 MG tablet acetaminophen (TYLENOL) 325 MG tablet 04/23/2021 12:00:00 AM EDT 65 0 mg Oral active Take 2 tablets (650 mg total) by mouth every 4 (four) hours as needed for pain [facility] heparin (porcine) injection 5,000 Units [id number] 04/22/20 10:00:00 PM EDT 5000 U Subcutaneous active 5,000 Units , Subcutaneous, Every 8 hours (scheduled), First dose on Wed04/22/21 at 2200, Post-op
Hold for platelet count less than 90,000, INR greater than or equal to 1.7 if receiving coumadin therapy
[facility] Medication administered onsite normal saline flush 0.9 % injection 3 mL [id number] 04/22/2021 09:00:00 PM EDT 3 mL Intravenous active 3 mL , Intravenous, PROTOCOL, First dose on Wed04/22/21 at 2100, Post-op
May convert IV to a saline lock when taking in good p.o. intake (minimally 600 mL).
[facility] Medication administered onsite ferrous gluconate 324 MG Oral Tablet ferrous gluconate (FERGON) tablet 324 mg ferrous gluconate (FERGON) tablet 324 mg 04/22/2021 09:00:00 PM EDT 324 mg Oral active 324 mg, Oral, 2 times daily, First dose on Wed04/22/21 at 2100, Post-op
Start when taking good p.o. intake.
[facility] Medication administered onsite Docusate Sodium 100 MG Oral Capsule docusate sodium (C OLACE) capsule 100 mg docusate sodium (COLACE) capsule 100 mg 04/22/2021 09:00:00 PM EDT 100 mg Oral active 100 mg, Oral, 2 times daily, First dose on Wed04/22/21 at 2100, Post-op
hold for loose stools
[facility] Medication administered onsite Magnesium Chloride 0.82014 MEQ/ML / Pota ssium Chloride 0.0497 MEQ/ML / Sodium Acetate 0.0163 MEQ/ML / Sodium Chloride 0.0899 MEQ/ML / Sodium gluconate 5.02 MG/ML Injectable Solution [Normosol-R] electrolyte-R (NORMOSOL-R/PLASMALYTE-R) solution electrolyte-R (NORMOSOL-R/PLASMALYTE-R) solution 04/22 07:00:00 PM EDT Intravenous active at 1 00 mL/hr, Intravenous, Continuous, Starting on Wed04/22/21 at 1900, PACU & Post-op [facility] Medication administered onsite POLYETHYLENE GLYCOL 3350 142 MG/ML Oral Solution polyethylene glycol (GLYCOLAX) packet 17 g polyethylene glycol (GLYCOLAX) packet 17 g 04/22/2021 07:00:00 PM EDT 17 g Oral active 17 g, Or al, Daily, First dose on Wed04/22/21 at 1900, Post-op
Start 2nd POD and continue until result.
[facility] Medication administered onsite acetaminophen (TYLENOL) 325 [...] Wed04/22/21 at 1822, Post-op [Order 2 End] [facility] Medication administered onsite potassium chloride SA (K-DUR,KLOR-CON) CR tablet 10 mEq 6203 704/22/2021 06:22:27 PM EDT 10 meq Oral active 10 mEq, Oral, As needed, Serum K+ 3.9-4.1, Starting on Wed04/22/21 at 1822, Post-op
For serum creatinine (SCR) greater than 1.5
[facility] Medication administered onsite potassium chloride SA (K-DUR,KLOR-CON) CR tablet 20 mEq 6203 704/22/2021 06:22:27 PM EDT 20 meq Oral active 20 mEq, Oral, As needed, Serum K+ 3.5-3.8, Starting on Wed04/22/21 at 1822, Post-op
For serum creatinine (SCR) greater than 1.5
[facility] Medication administered onsite potassium chloride SA (K-DUR,KLOR-CON) CR tablet 20 mEq 6203 04/22/2021 06:22:27 PM EDT 20 meq Oral active 20 mEq, Oral, As needed, Serum K+ 3.9-4.1, Starting on Wed04/22/21 at 1822, Post-op
For serum creatinine (SCR) 0.8 to 1.5
[facility] Medication administered onsite ondansetron (ZOFRAN) injection 4 mg [id number] 04/22/2021 06:22:2 7 PM EDT 4 mg Intravenous active 4 mg, In travenous, Every 6 hours PRN, nausea, vomiting, Starting on Wed04/22/21 at 1822, Post-op
If no response in 15-30 minutes, give metoclopramide 10 mg IV x 1 then q6h prn N/V.
[facility] Medication administered onsite potassium chloride SA (K-DUR,KLOR-CON) CR tablet 40 mEq 6203 704/22/2021 06:22:27 PM EDT 40 meq Oral active 40 mEq, Oral, As needed, Serum K+ 3.5-3.8, Starting on Wed04/22/21 at 1822, Post-op
For serum creatinine (SCR) 0.8 to 1.5
[facility] Medication administered onsite 10 ML Atropine [...] or 0.04 mg/kg. Max of 6 doses
[facility] Medication administered onsite magnesium sulfate 1 g in dextrose 5% infusion (premix) 83743 -[id number] 04/22/2021 06:22:26 PM EDT 1 g Intravenous active 1 g, Intravenous, at 200 mL/hr, As needed, serum Mg 1.9-2.1, Starting on Wed04/22/21 at 1822, Post-op
Give 1 grams magnesium sulfate IV x 1 run over 1 hour For serum creatinine (SCR) greater than 1.5
[facility] Medication administered onsite 50 ML Magnesium [...] For serum creatinine (SCR) greater than 1.5
[facility] Medication administered onsite 50 ML Magnesium [...] For serum creatinine (SCR) 0.8 to 1.5
[facility] Medication administered onsite 50 ML Magnesium [...] For serum creatinine (SCR) 0.8 to 1.5
[facility] Medication administered onsite Bisacodyl 10 MG Rectal Suppository bisacodyl (DULCOLAX ) suppository 10 mg bisacodyl (DULCOLAX) suppository 10 mg 04/22/2021 06:22:26 PM EDT 10 mg Rectal active 10 mg, Rectal, Daily PRN, constipation, Starting on Wed04/22/21 at 1822, Post-op
If polyethylene glycol not effective.
[facility] Medication administered onsite Nitroglycerin 0.4 MG Sublingual Tablet n itroglycerin (NITROSTAT) SL tablet 0.4 mg nitroglycerin (NITROSTAT) SL tablet 0.4 mg 04/22/2021 06:22:26 P M EDT 0.4 mg Sublingual active 0.4 mg, S ublingual, Every 5 min PRN, chest pain, Starting on Wed04/22/21 at 1822, Post-op
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 Notify MD/PA/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.
[facility] Medication administered onsite Aluminum Hydroxide 64 MG/ML Oral Suspens ion aluminum hydroxide (ALTERNAGEL) suspension 15 mL aluminum hydroxide (ALTERNAGEL) suspension 15 mL 04/22 06:22:26 PM EDT 15 mL Oral active 15 mL, Oral, Every 4 hours PRN, for indigestion/ gas, Starting on Wed04/22/21 at 1822, Post-op [facility] Medication administered onsite Albuterol 0.83 MG/ML Inhalant Solution a lbuterol (PROVENTIL) nebulizer solution 2.5 mg albuterol (PROVENTIL) nebulizer solution 2.5 mg 2020 06:22:25 PM EDT 2.5 mg active 2.5 mg, Nebulization, RT every 2 hours as needed, wheezing, shortness of breath, Starting on Wed04/22/21 at 1822, Post-op [facility] Medication administered onsite warfarin (COUMADIN) tablet 3 mg 04/19/2021 05:00:00 PM EDT 3 mg Oral completed 3 mg, Oral, WAR17, F irst dose on Wed04/19/21 at 1700, For 1 dose
For administration and preparation considerations, refer to Hazardous Drugs in the Workplace Policy on Intranet.
[facility] Medication administered onsite gabapentin 800 MG Oral Tablet gabapentin (NEURONTIN) t ablet 400 mg gabapentin (NEURONTIN) tablet 400 mg 04/19/2021 03:00:00 PM EDT 400 mg Oral active 400 mg, Oral, 3 times daily, First dose (after last modification) on Wed04/19/21 at 1500 [facility] Medication administered onsite norepinephrine bitartrate (LEVOPHED) 4 m g in sodium chloride (NS) 0.9 % 250 mL infusion 04/19/2021 01:00:00 PM EDT ug/min Intravenous aborted 0-4 mcg/min (0-15 mL/hr), Intravenous, Continuous, Starting on Wed04/19/21 at 1300, Until Wed04/22/21 at 1822, at 0-15 mL/hr [facility] Medication administered onsite Buprenorphine 8 MG [...] the same time as other po medications
[facility] Medication administered onsite albumin human 5 % bottle 12.5 g [id number] 04/19/2021 12:00:00 PM EDT 12.5 g Intravenous completed Systolic Hypotension 12. 5 g, Intravenous, Once, Indications: Systolic Hypotension, On 04/19/21 at 1200, For 1 dose [facility] Systolic Hypotension Medication administered onsite albumin human 5 % bottle 12.5 g [id number] 04/19/2021 11:00:00 AM EDT 12.5 g Intravenous completed Hypotension 12.5 g, Intr avenous, Once, Indications: Hypotension, On 04/19/21 at 1100, For 1 dose [facility] Hypotension Medication administered onsite POLYETHYLENE GLYCOL 3350 142 MG/ML Oral Solution polyethylene glycol (GLYCOLAX) packet 17 g polyethylene glycol (GLYCOLAX) packet 17 g 04/19/2021 09:00:00 AM EDT 17 g Oral aborted 17 g, Or al, Daily, First dose on 04/19/21 at 0900, PACU & Post-op
Starting 2nd POD, give every day until result
[facility] Medication administered onsite Amiodarone hydrochloride 200 MG Oral Tablet amiodarone (PACERONE) tablet 400 mg amiodarone (PACERONE) tablet 400 mg 04/19/2021 09:00:00 AM EDT 400 mg Oral aborted 400 mg, Oral, Daily, First d ose on 04/19/21 at 0900 [facility] Medication administered onsite Amlodipine 10 MG Oral Tablet amLODIPine (NORVASC) tabl et 10 mg amLODIPine (NORVASC) tablet 10 mg 04/19/2021 09:00:00 AM EDT 10 mg Oral aborted 10 mg, Oral, Daily, First dose on 04/19/21 at 0900 [facility] Medication administered onsite ferrous gluconate 324 MG Oral Tablet ferrous gluconate (FERGON) tablet 324 mg ferrous gluconate (FERGON) tablet 324 mg 04/19/2021 07:00:00 AM EDT 324 mg Oral aborted 324 mg, Oral, 2 times daily before meals, First dose on Wed04/19/21 at 0700, PACU & Post-op
Start POD #2
[facility] Medication administered onsite Amlodipine 10 MG Oral Tablet amLODIPine (NORVASC) tabl et 10 mg amLODIPine (NORVASC) tablet 10 mg 04/19/2021 12:00:00 AM EDT 10 mg Oral completed 10 mg, Oral, Once, On Wed04/19/21 at 0000, For 1 dose [facility] Medication administered onsite Lisinopril 10 MG Oral Tablet lisinopril (PRINIVIL,ZEST RIL) tablet 5 mg lisinopril (PRINIVIL,ZESTRIL) tablet 5 mg 04/18/2021 09:00:00 PM EDT 5 mg Oral completed 5 mg, Oral, Once, On Wed04/18/21 at 2100, For 1 dose [facility] Medication administered onsite Lisinopril 10 MG Oral Tablet lisinopril (PRINIVIL,ZEST RIL) tablet 5 mg lisinopril (PRINIVIL,ZESTRIL) tablet 5 mg 04/18/2021 07:00:00 PM EDT 5 mg Oral aborted 5 mg, Oral, Da lane, First dose on Wed04/18/21 at 1900
Hold for SBP <105
[facility] Medication administered onsite Warfarin Sodium 2 MG Oral Tablet warfarin (COUMADIN) t ablet 2 mg warfarin (COUMADIN) tablet 2 mg 04/18/2021 05:00:00 PM EDT 2 mg Oral completed 2 mg, Oral, WAR17, First dose on Wed04/18/21 at 1700, For 1 dose
For administration and preparation considerations, refer to Hazardous Drugs in the Workplace Policy on Intranet.
[facility] Medication administered onsite albumin human 5 % bottle 12.5 g [id number] 04/18/2021 02:00:00 PM EDT 12.5 g Intravenous completed 12.5 g, Intra venous, Once, Indications: low urine output, On Wed04/18/21 at 1400, For 1 dose [facility] Medication administered onsite 168 HR Buprenorphine [...] per patch) to make dose of 20mcg/hr
[facility] Medication administered onsite Ascorbic Acid 500 MG Oral Tablet ascorbic acid (VITAMI N C) tablet 500 mg ascorbic acid (VITAMIN C) tablet 500 mg 04/18/2021 09:00:00 AM EDT 500 mg Oral active 500 mg, Oral, Daily, First dose on Wed04/18/21 at 0900
Give PO/OG. Start first POD.
[facility] Medication administered onsite Docusate Sodium 100 MG Oral Capsule docusate sodium (C OLACE) capsule 100 mg docusate sodium (COLACE) capsule 100 mg 04/18/2021 09:00:00 AM EDT 100 mg Oral aborted 100 mg, Oral, Daily, First dose on Wed04/18/21 at 0900, PACU & Post-op
Give PO/OG. Start first POD
[facility] Medication administered onsite Folic Acid 1 MG Oral Tablet folic acid (FOLVITE) table t 1 mg folic acid (FOLVITE) tablet 1 mg 04/18/2021 09:00:00 AM EDT 1 mg Oral aborted 1 mg, Oral, Daily, First dose on Wed04/18/21 at 0900, PACU & Post-op
Give PO/OG. Start first POD
[facility] Medication administered onsite normal saline flush 0.9 % injection 3 mL [id number] 04/18/2021 09:00:00 AM EDT 3 mL Intravenous aborted 3 mL , Intravenous, PROTOCOL, First dose on Wed04/18/21 at 0900, PACU & Post-op
May convert to saline lock with minimally 600 ml PO intake on first POD; prior to transfer
[facility] Medication administered onsite Aspirin 81 MG Delayed Release Oral Tablet aspirin EC t ablet 81 mg aspirin EC tablet 81 mg 04/18/2021 09:00:00 AM EDT 81 mg Oral activ e 81 mg, Oral, Daily, First dose on Wed04/18/21 at 0900
Hold for platelet count less than 90,000. If OG tube in place, give non-enteric coated aspirin.
[facility] Medication administered onsite Famotidine 20 MG Oral Tablet famotidine (PEPCID) table t 20 mg famotidine (PEPCID) tablet 20 mg 04/18/2021 09:00:00 AM EDT 20 mg Oral active 20 mg, Oral, Daily, First dose (after last reorder) on Wed04/18/21 at 0900
Start after extubation Dose adjusted per pharmacy renal dosing protocol
[facility] Medication administered onsite heparin (porcine) injection 5,000 Units [id number] 04/18/20 06:00:00 AM EDT 5000 U Subcutaneous aborted 5,000 Units , Subcutaneous, Every 8 hours (scheduled), First dose on Wed04/18/21 at 0600, PACU & Post-op
Start first POD. Hold for platelet count less than 90,000, INR greater than or equal to 1.7 if receiving coumadin therapy.
[facility] Medication administered onsite Amitriptyline Hydrochloride 25 MG Oral T ablet amitriptyline (ELAVIL) tablet 100 mg amitriptyline (ELAVIL) tablet 100 mg 04/17/2021 09:00:00 PM EDT 100 mg Oral active 100 mg, Oral, Nightl y, First dose on Gerri 04/17/21 at 2100 [facility] Medication administered onsite atorvastatin 80 MG Oral Tablet atorvastatin (LIPITOR) tablet 80 mg atorvastatin (LIPITOR) tablet 80 mg 04/17/2021 09:00:00 PM EDT 80 mg Oral active 80 mg, Oral, Nightly, First dose on Wed04/17/21 at 2100 [facility] Medication administered onsite Mupirocin 0.02 MG/MG Topical Ointment mupirocin (BACTR OBAN) 2 % ointment mupirocin (BACTROBAN) 2 % ointment 04/17/2021 09:00:00 PM EDT Nasal completed Nasal, 2 times daily , 7 doses, First dose on Wed04/17/21 at 2100, Last dose on Wed04/20/21 at 2100 [facility] Medication administered onsite 60 ACTUAT mometasone furoate 0.2 MG/ACTU AT Dry Powder Inhaler mometasone furoate (ASMANEX) DPI 220 mcg/inh inhaler mometasone furoate (ASMANEX) DPI 220 mcg /inh inhaler 04/17/2021 08:00:00 PM EDT 1 {puff} Inhalation acti ve 1 puff, Inhalation, 2 times daily, First dose on Wed04/17/21 at 2000 [facility] Medication administered onsite Dexmedetomidine HCl 400 mcg in sodium chloride (NS) 0.9 % 10 0 mL infusion 04/17/2021 07:00:00 PM EDT ug/kg/h Intravenous aborted Post-op, 0.2- 0.7 mcg/kg/hr 64.9 kg (3.245-11.3575 mL/hr, rounded to 3.2-11.4 mL/hr), Intravenous, Continuous, Starting on Wed04/17/21 at 1900, Until Wed04/18/21 at 0539, at 3.2- 11.4 mL/hr [facility] Medication administered onsite ezetimibe 10 MG Oral Tablet ezetimibe (ZETIA) tablet 1 0 mg ezetimibe (ZETIA) tablet 10 mg 04/17/2021 06:00:00 PM EDT 10 mg Oral activ e 10 mg, Oral, Daily, First dose on Wed04/17/21 at 1800 [facility] Medication administered onsite Cefazolin 1000 MG [...] minutes. Use within 1 hour of reconstitution
[facility] Medication administered onsite gabapentin 800 MG Oral Tablet gabapentin (NEURONTIN) t ablet 800 mg gabapentin (NEURONTIN) tablet 800 mg 04/17/2021 03:00:00 PM EDT 800 mg Oral aborted 800 mg, Oral, 3 times daily, First dose on Gerri 04/17/21 at 1500 [facility] Medication administered onsite amiodarone HCl 900 mg in dextrose 5 % 500 mL infusion 04/17/2021 02:00:00 PM EDT mg/min Intravenous aborted 0.5- 1 mg/min (16.6667-33.3333 mL/hr, rounded to 16.7-33.3 mL/hr), Intravenous, Continuous, Starting on Gerri 04/17/21 at 1400, Until 04/19/21 at 0624, at 16.7-33.3 mL/hr [facility] Medication administered onsite 3 ML Amiodarone hydrochloride 50 MG/ML I njection amiodarone (CORDARONE) injection SOLN 150 mg amiodarone (CORDARONE) injection SOLN 150 mg 02:00:00 PM EDT 150 mg Intravenous completed 150 mg, Intravenous, Once, On Gerri 04/17/21 at 1400, For 1 dose
Administer through 0.22 micron filter, mix in 100 mL D5W and infuse over 10 minutes
[facility] Medication administered onsite Ipratropium Gering 0.2 MG/ML Inhalant S olution ipratropium (ATROVENT) 0.02 % nebulizer solution 0.5 mg ipratropium (ATROVENT) 0.02 % nebulizer solution 0.5 mg 04/17/2021 12:00:00 PM EDT 0.5 mg active 0.5 mg, Nebulization, 4 times daily, First dose on Gerri 04/17/21 at 1200 [facility] Medication administered onsite Vitamin B 12 1 MG/ML Injectable Solution cyanocobalami n injection 1,000 mcg cyanocobalamin injection 1,000 mcg 04/17/2021 12:00:00 PM EDT 10 00 ug Subcutaneous completed 1,000 mcg, S ubcutaneous, Once, On Gerri 04/17/21 at 1200, For 1 dose, PACU & Post-op
DEEP SUBCUTANEOUS
[facility] Medication administered onsite Famotidine (PEPCID) injection 20 mg [id number] 04/17/2021 12:00:0 0 PM EDT 20 mg Intravenous aborted 20 mg, I ntravenous, Every 12 hours (scheduled), First dose on Gerri 04/17/21 at 1200, PACU & Post-op
D/C after extubation
[facility] Medication administered onsite niCARdipine (CARDENE) 50 mg/250 ml 0.9% NaCl infusion 04/17/2021 12:00:00 PM EDT mg/h Intravenous aborted PACU & Post-op, 0-15 mg/hr (0-75 mL/hr), Intravenous, Continuous, Starting on Gerri 04/17/21 at 1200, Until 04/19/21 at 1119, at 0-75 mL/hr [facility] Medication administered onsite Magnesium Chloride 0.93691 MEQ/ML / Pota ssium Chloride 0.0497 MEQ/ML [...] intake is 2 liters in 24 hours
[facility] Medication administered onsite propofol (DIPRIVAN) infusion 10 mg/mL [id number] 04/17/2021 12:00 :00 PM EDT ug/kg/min Intravenous [...] OFF 2 HOURS AFTER ADMISSION TO CVICU
[facility] Medication administered onsite Dexmedetomidine HCl 400 mcg in sodium chloride (NS) 0.9 % 10 0 mL infusion 04/17/2021 12:00:00 PM EDT ug/kg/h Intravenous complete d Post-op, 0.2-0.7 mcg/kg/hr 64.9 kg (3.245-11.3575 mL/hr, rounded to 3.2-11.4 mL/hr), Intravenous, Continuous, Starting on Gerri 04/17/21 at 1200, Until Gerri 04/17/21 at 1544, at 3.2- 11.4 mL/hr [facility] Medication administered onsite ondansetron (ZOFRAN) injection 4 mg [id number] 04/17/2021 11:12:1 7 AM EDT 4 mg Intravenous aborted 4 mg, In travenous, Every 6 hours PRN, nausea, vomiting, Starting on Gerri 04/17/21 at 1112, PACU & Post-op [facility] Medication administered onsite potassium chloride 20 mEq in 50 mL IVPB (CRITICAL CARE/PCU O NLY) [id number] 04/17/2021 11:12:17 AM EDT 20 meq Intravenous [...] over 1 hour through a central line
[facility] Medication administered onsite Patient on Coumadin [...] Heart Valve
Target INR: 2 to 3 [facility] Medication administered onsite magnesium sulfate 1 g in dextrose 5% infusion (premix) 91365 -108-01 04/17/2021 11:12:16 AM EDT 1 g Intravenous aborted 1 g, Intravenous, Administer over 30 Minutes
As needed, for serum Mg+ 1.9 to 2.1, Starting on Gerri 04/17/21 at 1112, PACU & Post-op
Run over 30 minutes through a central line
[facility] Medication administered onsite 2 ML Midazolam 1 MG/ML Injection midazolam (VERSED) in jection 1 mg midazolam (VERSED) injection 1 mg 04/17/2021 11:12:16 AM EDT 1 mg Intraveno us aborted 1 mg, Intravenous, E very 30 min PRN, anxiety, sedation, Starting on Gerri 04/17/21 at 1112, For 7 days, PACU & Post-op
Target RASS -2 to +1 DISCONTINUE AFTER EXTUBATION
[facility] Medication administered onsite HYDROmorphone (DILAUDID) injection 0.5 mg [id number] 04/17/2021 11:12:16 AM EDT 0.5 mg Intravenous aborted 0.5 mg, Intravenous, Every 5 min PRN, severe pain (7-10), Starting on Gerri 04/17/21 at 1112, For 7 days
Indicated for patients less than 75 years of age and not frail patients. FOR EXTUBATED PATIENTS ONLY. DISCONTINUE 6 HOURS POST EXTUBATION. Maximum dose 2 mg.
[facility] Medication administered onsite fentaNYL Citrate (PF) (SUBLIMAZE) injection 25 mcg [id number] 04/17/2021 11:12:15 AM EDT 25 ug Intravenous aborted 25 mcg, Intravenous, Every 10 min PRN, moderate pain (4-6), Starting on Gerri 04/17/21 at 1112, For 7 days, PACU & Post-op
Maximum 10 doses in a 24-hour period. DISCONTINUE 6 HOURS POST EXTUBATION
[facility] Medication administered onsite HYDROmorphone (DILAUDID) injection 0.5 mg [id number] 04/17/2021 11:12:15 AM EDT 0.5 mg Intravenous aborted 0.5 mg, Intravenous, Every 10 min PRN, severe pain (7-10), Starting on Gerri 04/17/21 at 1112, For 7 days, PACU & Post- op
Indicated for patients less than 75 years of age and not frail patients. FOR INTUBATED PATIENTS ONLY. DISCONTINUE POST EXTUBATION. Maximum dose 3 mg.
[facility] Medication administered onsite Acetaminophen 325 MG [...] mg from all sources in 24 hours."
[facility] Medication administered onsite Metoprolol Tartrate 25 MG Oral Tablet me toprolol tartrate (LOPRESSOR) tablet 12.5 mg metoprolol tartrate (LOPRESSOR) tablet 12.5 mg 021 09:00:00 AM EDT 12.5 mg Oral aborted 12.5 mg, Oral, 2 times daily, First dose on Gerri 04/17/21 at 0900, Pre-op
Hold for HR < 60, or SBP <100
[facility] Medication administered onsite BUPIVACAINE 0.5% (Q-BALL) 330 mL drug or medication 04/17/2021 0 8:00:00 AM EDT 330 mL Topical active 330 mL, Topical, Continuous, Starting on Gerri 04/17/21 at 0800, Intra-op
Please indicate single or double lumen: Single Lumen [facility] Medication administered onsite heparin (porcine) injection 5,000 Units [id number] 04/17/20 21 06:00:00 AM EDT 5000 U Subcutaneous completed 5,000 Uni ts, Subcutaneous, Once, On Gerri 04/17/21 at 0600, For 1 dose, Pre-op
Once on admission. Hold for platelets < 90,000.
[facility] Medication administered onsite 2 % 04/16/2021 [...] DOSE = 1/ 7 DAYS SOLD: 02/12/2021 [facility] 8-2 mg 02/10/2021 12:00:00 AM EDT [...] tablet (10 mg total) by mouth daily [facility] Furosemide 20 MG Oral Tablet furosemide (LASIX) 20 MG tablet furosemide (LASIX) 20 MG tablet 02/06/2021 12:00:00 AM EDT 20 mg Oral abort ed Take 1 tablet (20 mg total) by mouth daily [facility] 24 HR Nicotine 0.292 MG/HR Transdermal Patch nicotine (NICODERM CQ) 7 MG/24HR nicotine (NICODERM CQ) 7 MG/24HR 02/06/2021 12:00:00 AM EDT 1 {p atch} Transdermal aborted Place 1 patch on t he skin daily [facility] 20 mcg/hour 01/14/2021 12:00:00 AM EDT [...] (5 mg total) by mo uth daily [facility] 100 mg 12/26/2020 12:00:00 AM EDT [...] DAILY DOSE = 4 STRIPS SOLD: 12/17/2020 [facility] iopamidol (ISOVUE-370) 76 % 09010 12/10/2020 01:37:13 PM EDT active As needed, Starting 12/10/20 at 1337, Intra-Procedu re [facility] Medication administered onsite NITROGLYCERIN 0.4 MG/ML IV SOLN [id number] 12/10/2020 12:43:30 PM EDT active As needed, Starting e 12/10 at 1243, Intra-Procedure [facility] Medication administered onsite 1 ML heparin sodium, porcine 1000 UNT/ML Injection hep shanti (porcine) injection heparin (porcine) injection 12/10/2020 12:33:21 PM EDT active As needed, Starting 12/10/20 at 1233, Intra-Procedure [facility] Medication administered onsite lidocaine 1 % injection [id number] 12/10/2020 12:29:18 PM EDT active As needed, Starting e 12/10/20 at 1229, Intra-Procedure [facility] Medication administered onsite 2 ML Midazolam 1 MG/ML Injection midazolam (VERSED) in jection midazolam (VERSED) injection 12/10/2020 12:28:40 PM EDT active As needed, Starting 12/10/20 at 1228, Intra-Procedure [facility] Medication administered onsite fentaNYL Citrate (PF) (SUBLIMAZE) injection [id number] 12/10/2020 12:28:26 PM EDT active As neede d, Starting Wed12/10/20 at 1228, Intra-Procedure [facility] Medication administered onsite sodium chloride 0.9% (NS) infusion [id number] 12/10/2020 10:00:00 AM EDT 100 mL/h Intravenous active at 100 m L/hr, 100 mL/hr, Intravenous, Continuous, Starting Wed12/10/20 at 1000, Pre-op [facility] Medication administered onsite normal saline flush 0.9 % injection 3 mL [id number] 12/10/2020 10:00:00 AM EDT 3 mL Intravenous active 3 mL , Intravenous, Every 8 hours (scheduled), First dose on Wed12/10/20 at 1000, Pre-op
Rapid push positive pressure flushing shall be performed with a 10 cc normal saline syringe to check the PATENCY of a PIV site prior to any infusion therapy initiation unless resistance is met.
[facility] Medication administered onsite 40 mg 12/10/2020 12:00:00 AM EDT tablet 30 TAKE ONE TABLET BY MOUTH ONCE DAILY TAKE ONE TABLET BY MOUTH ONCE DAILY SOLD: 12/14/2020 [employer] Aspirin 81 MG Delayed Release Oral Tablet aspirin EC 8 1 MG EC tablet aspirin EC 81 MG EC tablet 12/09/2020 12:00:00 AM EDT 81 mg Oral ab orted Take 1 tablet (81 mg total) by mouth daily [facility] Furosemide 40 MG Oral Tablet furosemide (LASIX) 40 MG tablet furosemide (LASIX) 40 MG tablet 12/09/2020 12:00:00 AM EDT 40 mg Oral activ e Take 1 tablet (40 mg total) by mouth daily [facility] 100 mg 12/07/2020 12:00:00 AM EDT [...] activ e Atorvastatin Calcium 80 MG eCW1 ([facility]) atorvastatin 80 MG Oral Tablet Atorvastatin Calcium 80 MG Atorvastatin Calcium 80 MG 12/06/2020 12:00:00 AM EDT 1.0 {tablet} activ e Atorvastatin Calcium 80 MG eCW1 ([facility]) atorvastatin 80 MG Oral Tablet Atorvastatin Calcium 80 MG Atorvastatin Calcium 80 MG 12/06/2020 12:00:00 AM EDT 1.0 {tablet} activ e Atorvastatin Calcium 80 MG eCW1 ([facility]) 12 HR Bupropion Hydrochloride 100 MG Ext ended Release Oral Tablet buPROPion HCl ER (SR) 100 MG buPROPion HCl ER (SR) 100 MG 12/06/2020 12:00:00 AM EDT 1.0 {tablet_in_the_morning} active buPROPio n HCl ER (SR) 100 MG eCW1 ([facility]) 12 HR Bupropion Hydrochloride 100 MG Ext ended Release Oral Tablet buPROPion HCl ER (SR) 100 MG buPROPion HCl ER (SR) 100 MG 12/06/2020 12:00:00 AM EDT 1.0 {tablet_in_the_morning} active buPROPio n HCl ER (SR) 100 MG eCW1 ([facility]) 12 HR Bupropion Hydrochloride 100 MG Ext ended Release Oral Tablet buPROPion HCl ER (SR) 100 MG buPROPion HCl ER (SR) 100 MG 12/06/2020 12:00:00 AM EDT 1.0 {tablet_in_the_morning} active buPROPio n HCl ER (SR) 100 MG eCW1 ([facility]) atorvastatin 80 MG Oral Tablet Atorvastatin Calcium 80 MG Atorvastatin Calcium 80 MG 12/06/2020 12:00:00 AM EDT 1.0 {tablet} activ e Atorvastatin Calcium 80 MG eCW1 ([facility]) atorvastatin 80 MG Oral Tablet Atorvastatin Calcium 80 MG Atorvastatin Calcium 80 MG 12/06/2020 12:00:00 AM EDT 1.0 {tablet} activ e Atorvastatin Calcium 80 MG eCW1 ([facility]) 12 HR Bupropion Hydrochloride 100 MG Ext ended Release Oral Tablet buPROPion HCl ER (SR) 100 MG buPROPion HCl ER (SR) 100 MG 12/06/2020 12:00:00 AM EDT 1.0 {tablet_in_the_morning} active buPROPio n HCl ER (SR) 100 MG eCW1 ([facility]) 12 HR Bupropion Hydrochloride 100 MG Ext ended Release Oral Tablet buPROPion (WELLBUTRIN SR) 100 MG 12 hr tablet buPROPion (WELLBUTRIN SR) 100 MG 12 hr tablet 12/06/2020 12:00:00 AM EDT aborted [facility] gabapentin 800 MG Oral Tablet gabapentin (NEURONTIN) 8 00 MG tablet gabapentin (NEURONTIN) 800 MG tablet 12/06/2020 12:00:00 AM EDT 800 mg Oral active Take 800 mg by mouth 3 (three) times a day [facility] atorvastatin 80 MG Oral Tablet atorvastatin (LIPITOR) 80 MG tablet atorvastatin (LIPITOR) 80 MG tablet 12/06/2020 12:00:00 AM EDT 80 mg Oral active Take 80 mg by mouth nightly [facility] Sumatriptan 100 MG Oral Tablet SUMAtriptan (IMITREX) 1 00 MG tablet SUMAtriptan (IMITREX) 100 MG tablet 12/06/2020 12:00:00 AM EDT 100 mg Oral active Take 100 mg by mouth once as needed (at onset of migraine. May repeat dose in 2 hours if needed. MDD : 2 tablets) [facility] albuterol (PROVENTIL HFA;VENTOLIN HFA) 108 (90 Base) M CG/ACT inhaler [id number] 12/06/2020 12:00:00 AM EDT 2 {puff} Inhalation active Inhale 2 puffs every 4 (four) hours as needed for wheezing [facility] 12 HR Bupropion Hydrochloride 100 MG Ext ended Release Oral Tablet buPROPion HCl ER (SR) 100 MG buPROPion HCl ER (SR) 100 MG 12/06/2020 12:00:00 AM EDT 1.0 {tablet_in_the_morning} active buPROPio n HCl ER (SR) 100 MG eCW1 ([facility]) atorvastatin 80 MG Oral Tablet Atorvastatin Calcium 80 MG Atorvastatin Calcium 80 MG 12/06/2020 12:00:00 AM EDT 1.0 {tablet} activ e Atorvastatin Calcium 80 MG eCW1 ([facility]) atorvastatin 80 MG Oral Tablet Atorvastatin Calcium 80 MG Atorvastatin Calcium 80 MG 12/06/2020 12:00:00 AM EDT 1.0 {tablet} activ e Atorvastatin Calcium 80 MG eCW1 ([facility]) 12 HR Bupropion Hydrochloride 100 MG Ext ended Release Oral Tablet BuPROPion HCl ER (SR) 100 MG BuPROPion HCl ER (SR) 100 MG 12/06/2020 12:00:00 AM EDT 1.0 {tablet_in_the_morning} active BuPROPio n HCl ER (SR) 100 MG eCW1 ([facility]) 12 HR Bupropion Hydrochloride 100 MG Ext ended Release Oral Tablet buPROPion HCl ER (SR) 100 MG buPROPion HCl ER (SR) 100 MG 12/06/2020 12:00:00 AM EDT 1.0 {tablet_in_the_morning} active buPROPio n HCl ER (SR) 100 MG eCW1 ([facility]) Amitriptyline Hydrochloride 100 MG Oral Tablet amitriptyline (ELAVIL) 100 MG tablet amitriptyline (ELAVIL) 100 MG tablet 11/25/2020 12:00:00 AM EDT 100 mg Oral active Take 100 mg by mouth nightly [facility] 20 mcg/hour 11/21/2020 12:00:00 AM EST [...] the skin every 7 days on Wednesday [facility] 8-2 mg 11/19/2020 12:00:00 AM EST [...] [facility] SPIRIVA RESPIMAT 2.5 MCG/ACT AERS [id number] 11/06/2020 12:00:00 AM EST 2 {puff} Inhalation active Inhale 2 puffs daily [facility] 28 ACTUAT Fluticasone propionate 0.1 MG/ ACTUAT Dry Powder Inhaler [Flovent] FLOVENT DISKUS 100 MCG/BLIST AEPB FLOVENT DISKUS 100 MCG/BLIST AEPB 11/06/2020 12:00:00 AM EST 1 {puff} Inhalation active Inhale 1 puff 2 (two) times a day [facility] 90 mcg/actuation 11/06/2020 12:00:00 AM EST [...] active Flovent Disku s 100 MCG/BLIST eCW1 ([facility]) Aspirin 81 MG Delayed Release Oral Tablet Aspirin 81 MG 11/05/2020 12:00:00 AM EST 1.0 {tablet} active Aspirin 81 MG eCW1 ([facility]) Aspirin 81 MG Delayed Release Oral Tablet Aspirin 81 MG 11/05/2020 12:00:00 AM EST 1.0 {tablet} active Aspirin 81 MG eCW1 ([facility]) Aspirin 81 MG Delayed Release Oral Tablet Aspirin 81 MG 11/05/2020 12:00:00 AM EST 1.0 {tablet} active Aspirin 81 MG eCW1 ([facility]) Aspirin 81 MG Delayed Release Oral Tablet Aspirin 81 MG 11/05/2020 12:00:00 AM EST 1.0 {tablet} active Aspirin 81 MG eCW1 ([facility]) Aspirin 81 MG Delayed Release Oral Tablet Aspirin 81 MG 11/05/2020 12:00:00 AM EST 1.0 {tablet} active Aspirin 81 MG eCW1 ([facility]) 28 ACTUAT Fluticasone propionate 0.1 MG/ ACTUAT Dry Powder Inhaler [Flovent] Flovent Diskus 100 MCG/BLIST Flovent Diskus 100 MCG/BLIST 11/05/2020 12:00:00 AM EST 1.0 {puff} active Flovent Disku s 100 MCG/BLIST eCW1 ([facility]) 28 ACTUAT tiotropium 0.0025 MG/ACTUAT Me tered Dose Inhaler [Spiriva] Spiriva Respimat 2.5 MCG/ACT Spiriva Respimat 2.5 MCG/ACT 11/05/2020 12:00:00 AM EST 2.0 {puffs} active Spiriva Respimat 2.5 MCG/ACT eCW1 ([facility]) 28 ACTUAT tiotropium 0.0025 MG/ACTUAT Me tered Dose Inhaler [Spiriva] Spiriva Respimat 2.5 MCG/ACT Spiriva Respimat 2.5 MCG/ACT 11/05/2020 12:00:00 AM EST 2.0 {puffs} active Spiriva Respimat 2.5 MCG/ACT eCW1 ([facility]) 28 ACTUAT Fluticasone propionate 0.1 MG/ ACTUAT Dry Powder Inhaler [Flovent] Flovent Diskus 100 MCG/BLIST Flovent Diskus 100 MCG/BLIST 11/05/2020 12:00:00 AM EST 1.0 {puff} active Flovent Disku s 100 MCG/BLIST eCW1 ([facility]) Aspirin 81 MG Delayed Release Oral Tablet Aspirin 81 MG 11/05/2020 12:00:00 AM EST 1.0 {tablet} active Aspirin 81 MG eCW1 ([facility]) Aspirin 81 MG Delayed Release Oral Tablet Aspirin 81 MG 11/05/2020 12:00:00 AM EST 1.0 {tablet} active Aspirin 81 MG eCW1 ([facility]) Aspirin 81 MG Delayed Release Oral Tablet Aspirin 81 MG 11/05/2020 12:00:00 AM EST 1.0 {tablet} active Aspirin 81 MG eCW1 ([facility]) 28 ACTUAT tiotropium 0.0025 MG/ACTUAT Me tered Dose Inhaler [Spiriva] Spiriva Respimat 2.5 MCG/ACT Spiriva Respimat 2.5 MCG/ACT 11/05/2020 12:00:00 AM EST 2.0 {puffs} active Spiriva Respimat 2.5 MCG/ACT eCW1 ([facility]) 28 ACTUAT tiotropium 0.0025 MG/ACTUAT Me tered Dose Inhaler [Spiriva] Spiriva Respimat 2.5 MCG/ACT Spiriva Respimat 2.5 MCG/ACT 11/05/2020 12:00:00 AM EST 2.0 {puffs} active Spiriva Respimat 2.5 MCG/ACT eCW1 ([facility]) 28 ACTUAT Fluticasone propionate 0.1 MG/ ACTUAT Dry Powder Inhaler [Flovent] Flovent Diskus 100 MCG/BLIST Flovent Diskus 100 MCG/BLIST 11/05/2020 12:00:00 AM EST 1.0 {puff} active Flovent Disku s 100 MCG/BLIST eCW1 ([facility]) 20 mcg/hour 10/23/2020 12:00:00 AM EST [...] mouth every 8 (eight) hours as needed [facility] Hydrocodone Bitartrate 10 MG / Ibuprofen 200 MG Oral Tablet HYDROcodone- Ibuprofen 10-200 MG TABS HYDROcodone-Ibuprofen 10-200 MG TABS 1 {tbl} Oral aborted Take 1 tablet by mouth 4 (four) times a day as needed (for pain) [facility] Insurance Providers Payer name Policy type / Coverage type Policy ID Covered libertarian ID Covered libertarian's relationship to pedro Policy Pedro Plan Information [facility] () Workers Compensation [id number] Self [id number] [facility] Part B [id number] Self [id number] [facility] () Workers Compensation [id number] Self [id number] [employer] () Workers Compensation [id number] Self [id number] [facility] () Workers Compensation [id number] Self [id number] MEDICARE [id number] Eugenia [id number] MEDICARE [id number] MEDICARE [id number] MEDICARE [id number] Eugenia [id number] HUMANA [id number] xxxxxxxxx [id number] HUMANA MEDICARE [id number] xxxxxxxxx [id number] HUMANA [id number] Eugenia [id number] HUMANA MEDICARE [id number] Eugenia [id number] HUMANA MEDICARE [id number] Eugenia [id number] HUMANA [id number] Eugenia [id number] INSURANCE COVID-19 COVID Eugenia C OVID INSURANCE COVID-19 COVID Eugenia C OVID INSURANCE COVID-19 [id number] xOVID 2 [id number] INSURANCE COVID-19 COVID Eugenia C OVID INSURANCE COVID-19 COVID Eugenia C OVID INSURANCE COVID-19 [id number] xOVID 2 [id number] ANSI-Medicare Part B [id number] ANSI-Medicare Part B [id number] ANSI-Medicare Part B [id number] ANSI-Medicare Part B [id number] ANSI-Medicare Part B [id number] ANSI-Medicare Part B [id number] ANSI-Medicare Part B [id number] ANSI-Medicare Part B [id number] ANSI-Medicare Part B [id number] ANSI-Medicare Part B [id number] ANSI-Medicare Part B [id number] MEDICARE C [id number] S [id number] A HUMANA GOLD [id number] SP [id number] Medicare Medicare Primary [id number] Self HUMANA GOLD [id number] SP [id number] [facility] INSURANCE [facility] [id number] SP [id number] MEDICARE [id number] SP [id number] A HUMANA PPO [id number] SP [id number] MEDICARE [id number] SP [id number] ANSI-Commercial [id number] ANSI-Medicare Part B [id number] ANSI-Commercial [id number] ANSI-Medicare Part B [id number] ANSI-Medicare Part B [id number] ANSI-Commercial [id number] Medicare [place] Primary [id number] Self 3 [id number] ANSI-Commercial [id number] ANSI-Medicare Part B [id number] ANSI-Medicare Part B [id number] ANSI-Medicare Part B [id number] ANSI-Medicare Part B [id number] ANSI-Medicare Part B [id number] ANSI-Medicare Part B [id number] ANSI-Medicare Part B [id number] ANSI-Medicare Part B [id number] Problems, Conditions, and Diagnoses Code Display Name Description Problem Type Effective Dates Data Source(s) I48.3 Typical atrial flutter Typical atrial flutter Diagnosi s 07/08/2021 03:24:34 PM EDT [facility] Z95.0 Presence of cardiac pacemaker Presence of cardiac pace maker Diagnosis 04/28/2021 02:44:50 PM EDT [facility] R09.89 Other specified symptoms and signs involving the circulatory and respiratory systems Other specified symptoms and signs invol Diagnosis 04/28/2021 02:44:50 PM EDT [facility] F17.200 Nicotine dependence, unspecified, uncomp licated Nicotine dependence, unspecified, uncomp Diagnosis 04/28/2021 02:44:50 PM EDT [facility] E78.00 Pure hypercholesterolemia, unspecified P ure hypercholesterolemia, unspecified Diagnosis 04/28/2021 02:44:50 PM EDT [facility] Z95.2 Presence of prosthetic heart valve Presence of p rosthetic heart valve Diagnosis 04/28/2021 02:44:50 PM EDT [facility] 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 Rheumatic mitral insuff iciency Diagnosis 04/17/2021 05:18:00 AM EDT [facility] U07.1 COVID-19 COVID-19 Diagnosis 04/14/2021 08:25:17 AM ED T [facility] 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 Rheumatic mitral stenosis with insuffici Diagnosis 04/07/2021 02:12:35 PM EDT [facility] I73.9 Peripheral vascular disease, unspecified Peripheral vascular disease, unspecified Diagnosis 01/13/2021 01:57:32 PM EDT [facility] 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 Rheumatic mitral stenosis with insuffici Diagnosis 01/13/2021 01:57:32 PM EDT [facility] R06.02 Shortness of breath Shortness of breath Diagnosis 0 01/06/2021 02:29:51 PM EDT [facility] Z95.2 [id number] H/O mitral valve replacement with mecha nical valve Problem 06/19/2021 12:00:00 AM EDT [facility] ([facility]) I48.3 [id number] Typical atrial flutter Problem 06/19/2021 12 :00:00 AM EDT [facility] ([facility]) Z95.0 [id number] Pacemaker Problem 06/19/2021 12:00:00 AM ED T [facility] ([facility]) Z95.0 Permanent cardiac pacemaker Permanent cardiac pacemake r [id number] 04/28/2021 12:00:00 AM EDT [facility] Z95.2 Mitral valve replacement Mitral valve replacement 6457 200004/26/2021 12:00:00 AM EDT [facility] I05.1 Rheumatic mitral regurgitation Rheumatic mitral regurg itation [id number] 12/09/2020 12:00:00 AM EDT [facility] R09.89 Right carotid bruit Right carotid bruit [id number] 0 12/09/2020 12:00:00 AM EDT [facility] F17.200 Smoker Smoker [id number] 12/09/2020 12:00:00 AM ED T [facility] E78.00 Hypercholesterolemia Hypercholesterolemia [id number] 12/09/2020 12:00:00 AM EDT [facility] I73.9 Peripheral vascular disease Peripheral vascular diseas e [id number] 12/09/2020 12:00:00 AM EDT [facility] R06.02 Shortness of breath Shortness of breath [id number] 0 12/09/2020 12:00:00 AM EDT [facility] 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 Rheumatic mitral stenosis with insufficiency [id number] 12/09/2020 12:00:00 AM EDT [facility] N20.0 [id number] Kidney stones Problem 12/06/2020 12:00:00 AM EDT eCW1 ([facility]) E78.5 [id number] Acquired hyperlipoproteinemia Problem 2020 12:00:00 AM EDT eCW1 ([facility]) I05.2 [id number] Mitral stenosis with insufficiency, rheum atic Problem 12/06/2020 12:00:00 AM EDT eCW1 ([facility]) I73.9 [id number] Claudication of both lower extremities Pr oblem 11/05/2020 12:00:00 AM EST eCW1 ([facility]) Z00.00 [id number] Medicare annual wellness visit, subsequen t Problem 11/05/2020 12:00:00 AM EST eCW1 ([facility]) I73.9 Peripheral vascular disease PAD (peripheral artery dis ease) Problem 11/05/2020 12:00:00 AM EST eCW1 ([facility]) Surgeries/Procedures Procedure Description Date Indications Data Source(s) ECG ROUTINE ECG W/LEAST 12 LDS W/I&R 06/19/2021 12:00: 00 AM EDT eCW1 ([facility]) POCT AMB EKG <td>POCT AMB EKG</td><td>Rou twan</td><td>04/28/2021 3:53 PM EDT</td><td> Mitral valve replacement</td><td> </td> 04/28/2021 03:53:00 PM EDT Mitral valve replacement [facility] Mitral valve replacement XR CHEST PORTABLE <td>XR CHEST PORTABLE</td><t d>Pending Discharge</td><td>04/23/2021 5:03 PM EDT</td><td></td><td> </td> 04/23/2021 05:03:06 PM EDT [facility] XR CHEST PA AND LATERAL <td>XR CHEST PA AND LATERAL</td><td>Timed</td><td>04/23/2021 1:39 PM EDT</td><td></td><td> </td> 04/23/2021 01:39:13 PM EDT [facility] PROTHROMBIN TIME <td>PROTIME-INR</td><td>Rout ine</td><td>04/23/2021 12:12 PM EDT</td><td></td><td> </td> 04/23/2021 12:12:00 PM EDT [facility] BLOOD COUNT COMPLETE AUTOMATED <td>CBC</td><td>Timed</ td><td>04/23/2021 12:12 PM EDT</td><td></td><td> </td> 04/23/2021 12:12:00 PM EDT [facility] MAGNESIUM <td>MAGNESIUM</td><td>Timed< /td><td>04/23/2021 12:12 PM EDT</td><td></td><td> </td> 04/23/2021 12:12:00 PM EDT [facility] BASIC METABOLIC PANEL CALCIUM TOTAL <td>BASIC METABOLI C PANEL</td><td>Timed</td><td>04/23/2021 12:12 PM EDT</td><td></td><td> </td> 04/23/2021 12:12:00 PM EDT [facility] XR CHEST PA AND LATERAL <td>XR CHEST PA AND LATERAL</td><td>Routine</td><td>04/23/2021 8:01 AM EDT</td><td></td><td> </td> 04/23/2021 08:01:02 AM EDT [facility] ECG ROUTINE ECG W/LEAST 12 LDS TRCG ONLY W/O I&R <td>E CG 12- LEAD</td><td>Routine</td><td>04/23/2021 5:45 AM EDT</td><td></td><td></td> 04/23/2021 05:45:32 AM EDT [facility] XR CHEST PORTABLE <td>XR CHEST PORTABLE</td><t d>STAT</td><td>04/22/2021 6:39 PM EDT</td><td></td><td> </td> 04/22/2021 06:39:00 PM EDT [facility] FLUOROSCOPY SPX <1 HOUR PHYSICIAN TIME <td>XR FLUORO P ACEMAKER INSERT</td><td>STAT</td><td>04/22/2021 6:10 PM EDT</td><td></td><td> </td> 04/22/2021 06:10:22 PM EDT [facility] INSERTION, CARDIAC PACEMAKER, BIVENTRICULAR <td>INSERT ION, CARDIAC PACEMAKER, BIVENTRICULAR</td><td></td><td>04/22/2021 5:13 PM EDT</td><td> COMPLETE HEART BLOCK</td><td></td> 04/22/2021 05:13:00 PM EDT - 04/22/2021 06:45:00 PM EDT [facility] BLOOD TYPING ABO <td>TYPE AND SCREEN</td><td> Routine</td><td>04/22/2021 4:09 PM EDT</td><td></td><td> </td> 04/22/2021 04:09:00 PM EDT [facility] COVID/FLU AB/RSV PCR <td>COVID/FLU AB/RSV PCR</td ><td>STAT</td><td>04/22/2021 1:55 PM EDT</td><td></td><td> </td> 04/22/2021 01:55:00 PM EDT [facility] POTASSIUM SERUM PLASMA/WHOLE BLOOD <td>POTASSIUM</td>< td>STAT</td><td>04/22/2021 8:51 AM EDT</td><td></td><td> </td> 04/22/2021 08:51:00 AM EDT [facility] XR CHEST PORTABLE <td>XR CHEST PORTABLE</td><t d>Timed</td><td>04/22/2021 7:05 AM EDT</td><td></td><td> </td> 04/22/2021 07:05:10 AM EDT [facility] BLOOD COUNT COMPLETE AUTOMATED <td>CBC</td><td>Routine </td><td>04/22/2021 3:16 AM EDT</td><td></td><td> </td> 04/22/2021 03:16:00 AM EDT [facility] MAGNESIUM <td>MAGNESIUM</td><td>Routin e</td><td>04/22/2021 3:16 AM EDT</td><td></td><td> </td> 04/22/2021 03:16:00 AM EDT [facility] BASIC METABOLIC PANEL CALCIUM TOTAL <td>BASIC METABOLI C PANEL</td><td>Routine</td><td>04/22/2021 3:16 AM EDT</td><td></td><td> </td> 04/22/2021 03:16:00 AM EDT [facility] PROTHROMBIN TIME <td>PROTIME-INR</td><td>Rout ine</td><td>04/22/2021 3:09 AM EDT</td><td></td><td> </td> 04/22/2021 03:09:00 AM EDT [facility] PROTHROMBIN TIME <td>PROTIME-INR</td><td>Rout ine</td><td>04/21/2021 2:44 AM EDT</td><td></td><td> </td> 04/21/2021 02:44:00 AM EDT [facility] BLOOD COUNT COMPLETE AUTOMATED <td>CBC</td><td>Routine </td><td>04/21/2021 2:44 AM EDT</td><td></td><td> </td> 04/21/2021 02:44:00 AM EDT [facility] BASIC METABOLIC PANEL CALCIUM TOTAL <td>BASIC METABOLI C PANEL</td><td>Routine</td><td>04/21/2021 2:44 AM EDT</td><td></td><td> </td> 04/21/2021 02:44:00 AM EDT [facility] XR CHEST PORTABLE <td>XR CHEST PORTABLE</td><t d>Timed</td><td>04/20/2021 11:57 AM EDT</td><td></td><td> </td> 04/20/2021 11:57:44 AM EDT [facility] POTASSIUM SERUM PLASMA/WHOLE BLOOD <td>POTASSIUM</td><td>Routine</td><td>04/20/2021 11:12 AM EDT</td><td></td><td> </td> 04/20/2021 11:12:00 AM EDT [facility] GLUC BLD GLUC MNTR DEV CLEARED FDA SPEC HOME USE <td>P OCT GLUCOSE</td><td>Routine</td><td>04/20/2021 7:53 AM EDT</td><td></td><td> </td> 04/20/2021 07:53:00 AM EDT [facility] POTASSIUM SERUM PLASMA/WHOLE BLOOD <td>POTASSIUM</td>< td>STAT</td><td>04/20/2021 7:29 AM EDT</td><td></td><td> </td> 04/20/2021 07:29:00 AM EDT [facility] HEPATIC FUNCTION PANEL <td>HEPATIC FUNCTION PANEL</ td><td>Add- On</td><td>04/20/2021 7:29 AM EDT</td><td></td><td> </td> 04/20/2021 07:29:00 AM EDT [facility] PROTHROMBIN TIME <td>PROTIME-INR</td><td>Time d</td><td>04/20/2021 2:26 AM EDT</td><td></td><td> </td> 04/20/2021 02:26:00 AM EDT [facility] BLOOD COUNT COMPLETE AUTOMATED <td>CBC</td><td>Timed</ td><td>04/20/2021 2:26 AM EDT</td><td></td><td> </td> 04/20/2021 02:26:00 AM EDT [facility] MAGNESIUM <td>MAGNESIUM</td><td>Timed< /td><td>04/20/2021 2:26 AM EDT</td><td></td><td> </td> 04/20/2021 02:26:00 AM EDT [facility] CALCIUM IONIZED <td>CALCIUM, IONIZED</td><td >Timed</td><td>04/20/2021 2:26 AM EDT</td><td></td><td> </td> 04/20/2021 02:26:00 AM EDT [facility] BASIC METABOLIC PANEL CALCIUM TOTAL <td>BASIC METABOLI C PANEL</td><td>Timed</td><td>04/20/2021 2:26 AM EDT</td><td></td><td> </td> 04/20/2021 02:26:00 AM EDT [facility] GLUC BLD GLUC MNTR DEV CLEARED FDA SPEC HOME USE <td>P OCT GLUCOSE</td><td>Routine</td><td>04/19/2021 5:56 PM EDT</td><td></td><td> </td> 04/19/2021 05:56:00 PM EDT [facility] XR CHEST PORTABLE <td>XR CHEST PORTABLE</td><t d>Timed</td><td>04/19/2021 1:24 PM EDT</td><td></td><td> </td> 04/19/2021 01:24:15 PM EDT [facility] GLUC BLD GLUC MNTR DEV CLEARED FDA SPEC HOME USE <td>P OCT GLUCOSE</td><td>Routine</td><td>04/19/2021 1:00 PM EDT</td><td></td><td> </td> 04/19/2021 01:00:00 PM EDT [facility] GLUC BLD GLUC MNTR DEV CLEARED FDA SPEC HOME USE <td>P OCT GLUCOSE</td><td>Routine</td><td>04/19/2021 8:24 AM EDT</td><td></td><td> </td> 04/19/2021 08:24:00 AM EDT [facility] BASIC METABOLIC PANEL CALCIUM TOTAL <td>BASIC METABOLI C PANEL</td><td>Timed</td><td>04/19/2021 2:18 AM EDT</td><td></td><td> </td> 04/19/2021 02:18:00 AM EDT [facility] PROTHROMBIN TIME <td>PROTIME-INR</td><td>Time d</td><td>04/19/2021 2:18 AM EDT</td><td></td><td> </td> 04/19/2021 02:18:00 AM EDT [facility] BLOOD COUNT COMPLETE AUTOMATED <td>CBC</td><td>Timed</ td><td>04/19/2021 2:18 AM EDT</td><td></td><td> </td> 04/19/2021 02:18:00 AM EDT [facility] MAGNESIUM <td>MAGNESIUM</td><td>Timed< /td><td>04/19/2021 2:18 AM EDT</td><td></td><td> </td> 04/19/2021 02:18:00 AM EDT [facility] CALCIUM IONIZED <td>CALCIUM, IONIZED</td><td >Timed</td><td>04/19/2021 2:18 AM EDT</td><td></td><td> </td> 04/19/2021 02:18:00 AM EDT [facility] GLUC BLD GLUC MNTR DEV CLEARED FDA SPEC HOME USE <td>P OCT GLUCOSE</td><td>Routine</td><td>04/18/2021 6:40 PM EDT</td><td></td><td> </td> 04/18/2021 06:40:00 PM EDT [facility] GLUC BLD GLUC MNTR DEV CLEARED FDA SPEC HOME USE <td>P OCT GLUCOSE</td><td>Routine</td><td>04/18/2021 12:40 PM EDT</td><td></td><td> </td> 04/18/2021 12:40:00 PM EDT [facility] GLUC BLD GLUC MNTR DEV CLEARED FDA SPEC HOME USE <td>P OCT GLUCOSE</td><td>Routine</td><td>04/18/2021 9:44 AM EDT</td><td></td><td> </td> 04/18/2021 09:44:00 AM EDT [facility] POTASSIUM SERUM PLASMA/WHOLE BLOOD <td>POTASSIUM</td><td>Routine</td><td>04/18/2021 9:40 AM EDT</td><td></td><td> </td> 04/18/2021 09:40:00 AM EDT [facility] MAGNESIUM <td>MAGNESIUM</td><td>Routin e</td><td>04/18/2021 9:40 AM EDT</td><td></td><td> </td> 04/18/2021 09:40:00 AM EDT [facility] GLUC BLD GLUC MNTR DEV CLEARED FDA SPEC HOME USE <td>P OCT GLUCOSE</td><td>Routine</td><td>04/18/2021 6:07 AM EDT</td><td></td><td> </td> 04/18/2021 06:07:00 AM EDT [facility] GLUC BLD GLUC MNTR DEV CLEARED FDA SPEC HOME USE <td>P OCT GLUCOSE</td><td>Routine</td><td>04/18/2021 3:04 AM EDT</td><td></td><td> </td> 04/18/2021 03:04:00 AM EDT [facility] PROTHROMBIN TIME <td>PROTIME-INR</td><td>Time d</td><td>04/18/2021 3:00 AM EDT</td><td></td><td> </td> 04/18/2021 03:00:00 AM EDT [facility] BLOOD COUNT COMPLETE AUTOMATED <td>CBC</td><td>Timed</ td><td>04/18/2021 3:00 AM EDT</td><td></td><td> </td> 04/18/2021 03:00:00 AM EDT [facility] MAGNESIUM <td>MAGNESIUM</td><td>Timed< /td><td>04/18/2021 3:00 AM EDT</td><td></td><td> </td> 04/18/2021 03:00:00 AM EDT [facility] CALCIUM IONIZED <td>CALCIUM, IONIZED</td><td >Timed</td><td>04/18/2021 3:00 AM EDT</td><td></td><td> </td> 04/18/2021 03:00:00 AM EDT [facility] BASIC METABOLIC PANEL CALCIUM TOTAL <td>BASIC METABOLI C PANEL</td><td>Timed</td><td>04/18/2021 3:00 AM EDT</td><td></td><td> </td> 04/18/2021 03:00:00 AM EDT [facility] GLUC BLD GLUC MNTR DEV CLEARED FDA SPEC HOME USE <td>P OCT GLUCOSE</td><td>Routine</td><td>04/18/2021 12:29 AM EDT</td><td></td><td> </td> 04/18/2021 12:29:00 AM EDT [facility] GLUC BLD GLUC MNTR DEV CLEARED FDA SPEC HOME USE <td>P OCT GLUCOSE</td><td>Routine</td><td>04/17/2021 10:02 PM EDT</td><td></td><td> </td> 04/17/2021 10:02:00 PM EDT [facility] BLOOD COUNT COMPLETE AUTOMATED <td>CBC</td><td>STAT</t d><td>04/17/2021 9:03 PM EDT</td><td></td><td> </td> 04/17/2021 09:03:00 PM EDT [facility] POTASSIUM SERUM PLASMA/WHOLE BLOOD <td>POTASSIUM</td><td>Routine</td><td>04/17/2021 9:03 PM EDT</td><td></td><td> </td> 04/17/2021 09:03:00 PM EDT [facility] GLUC BLD GLUC MNTR DEV CLEARED FDA SPEC HOME USE <td>P OCT GLUCOSE</td><td>Routine</td><td>04/17/2021 7:57 PM EDT</td><td></td><td> </td> 04/17/2021 07:57:00 PM EDT [facility] GLUC BLD GLUC MNTR DEV CLEARED FDA SPEC HOME USE <td>P OCT GLUCOSE</td><td>Routine</td><td>04/17/2021 5:57 PM EDT</td><td></td><td> </td> 04/17/2021 05:57:00 PM EDT [facility] POC ARTERIAL BLOOD GAS <td>POC ARTERIAL BLOOD GAS</td><td>Routine</td><td>04/17/2021 5:18 PM EDT</td><td></td><td> </td> 04/17/2021 05:18:00 PM EDT [facility] GLUC BLD GLUC MNTR DEV CLEARED FDA SPEC HOME USE <td>P OCT GLUCOSE</td><td>Routine</td><td>04/17/2021 4:00 PM EDT</td><td></td><td> </td> 04/17/2021 04:00:00 PM EDT [facility] POTASSIUM SERUM PLASMA/WHOLE BLOOD <td>POTASSIUM</td>< td>STAT</td><td>04/17/2021 3:58 PM EDT</td><td></td><td> </td> 04/17/2021 03:58:00 PM EDT [facility] GLUC BLD GLUC MNTR DEV CLEARED FDA SPEC HOME USE <td>P OCT GLUCOSE</td><td>Routine</td><td>04/17/2021 2:28 PM EDT</td><td></td><td> </td> 04/17/2021 02:28:00 PM EDT [facility] GLUC BLD GLUC MNTR DEV CLEARED FDA SPEC HOME USE <td>P OCT GLUCOSE</td><td>Routine</td><td>04/17/2021 1:31 PM EDT</td><td></td><td> </td> 04/17/2021 01:31:00 PM EDT [facility] GLUC BLD GLUC MNTR DEV CLEARED FDA SPEC HOME USE <td>P OCT GLUCOSE</td><td>Routine</td><td>04/17/2021 12:30 PM EDT</td><td></td><td> </td> 04/17/2021 12:30:00 PM EDT [facility] POC CALCIUM BG <td>POC CALCIUM BG</td><td>R outine</td><td>04/17/2021 11:58 AM EDT</td><td></td><td> </td> 04/17/2021 11:58:00 AM EDT [facility] POC ARTERIAL BLOOD GAS <td>POC ARTERIAL BLOOD GAS</td><td>Routine</td><td>04/17/2021 11:52 AM EDT</td><td></td><td> </td> 04/17/2021 11:52:00 AM EDT [facility] XR CHEST PORTABLE <td>XR CHEST PORTABLE</td><t d>STAT</td><td>04/17/2021 11:45 AM EDT</td><td></td><td> </td> 04/17/2021 11:45:26 AM EDT [facility] ECG ROUTINE ECG W/LEAST 12 LDS TRCG ONLY W/O I&R <td>E CG 12- LEAD</td><td>Routine</td><td>04/17/2021 11:19 AM EDT</td><td></td><td></td> 04/17/2021 11:19:23 AM EDT [facility] GLUC BLD GLUC MNTR DEV CLEARED FDA SPEC HOME USE <td>P OCT GLUCOSE</td><td>Routine</td><td>04/17/2021 11:18 AM EDT</td><td></td><td> </td> 04/17/2021 11:18:00 AM EDT [facility] BLOOD COUNT COMPLETE AUTOMATED <td>CBC</td><td>STAT</t d><td>04/17/2021 11:16 AM EDT</td><td></td><td> </td> 04/17/2021 11:16:00 AM EDT [facility] MAGNESIUM <td>MAGNESIUM</td><td>STAT</ td><td>04/17/2021 11:16 AM EDT</td><td></td><td> </td> 04/17/2021 11:16:00 AM EDT [facility] CALCIUM IONIZED <td>CALCIUM, IONIZED</td><td >STAT</td><td>04/17/2021 11:16 AM EDT</td><td></td><td> </td> 04/17/2021 11:16:00 AM EDT [facility] BASIC METABOLIC PANEL CALCIUM TOTAL <td>BASIC METABOLI C PANEL</td><td>STAT</td><td>04/17/2021 11:16 AM EDT</td><td></td><td> </td> 04/17/2021 11:16:00 AM EDT [facility] POC ARTERIAL BLOOD GAS W LYTES <td>POC ARTERIAL BLOOD GAS W LYTES</td><td>Routine</td><td>04/17/2021 10:35 AM EDT</td><td></td><td> </td> 04/17/2021 10:35:00 AM EDT [facility] POC ACT <td>POC ACT</td><td>Routine< /td><td>04/17/2021 10:34 AM EDT</td><td></td><td> </td> 04/17/2021 10:34:00 AM EDT [facility] THROMBOPLASTIN TIME PARTIAL PLASMA/WHOLE BLOOD <td>APTT</td><td>Routine</td><td>04/17/2021 10:32 AM EDT</td><td></td><td> </td> 04/17/2021 10:32:00 AM EDT [facility] PROTHROMBIN TIME <td>PROTIME-INR</td><td>Rout ine</td><td>04/17/2021 10:32 AM EDT</td><td></td><td> </td> 04/17/2021 10:32:00 AM EDT [facility] POC ARTERIAL BLOOD GAS W LYTES <td>POC ARTERIAL BLOOD GAS W LYTES</td><td>Routine</td><td>04/17/2021 9:45 AM EDT</td><td></td><td> </td> 04/17/2021 09:45:00 AM EDT [facility] POC VENOUS BLOOD GAS W LYTES <td>POC VENOUS BLOOD GAS W LYTES</td><td>Routine</td><td>04/17/2021 9:41 AM EDT</td><td></td><td> </td> 04/17/2021 09:41:00 AM EDT [facility] POC ACT <td>POC ACT</td><td>Routine< /td><td>04/17/2021 9:40 AM EDT</td><td></td><td> </td> 04/17/2021 09:40:00 AM EDT [facility] POC VENOUS BLOOD GAS W LYTES <td>POC VENOUS BLOOD GAS W LYTES</td><td>Routine</td><td>04/17/2021 9:12 AM EDT</td><td></td><td> </td> 04/17/2021 09:12:00 AM EDT [facility] POC ACT <td>POC ACT</td><td>Routine< /td><td>04/17/2021 9:11 AM EDT</td><td></td><td> </td> 04/17/2021 09:11:00 AM EDT [facility] POC ARTERIAL BLOOD GAS W LYTES <td>POC ARTERIAL BLOOD GAS W LYTES</td><td>Routine</td><td>04/17/2021 8:44 AM EDT</td><td></td><td> </td> 04/17/2021 08:44:00 AM EDT [facility] POC ACT <td>POC ACT</td><td>Routine< /td><td>04/17/2021 8:43 AM EDT</td><td></td><td> </td> 04/17/2021 08:43:00 AM EDT [facility] LEVEL IV SURG PATHOLOGY GROSS&MICROSCOPIC EXAM <td>[facility] HISTOLOGY</td><td>Routine</td><td>04/17/2021 8:19 AM EDT</td><td></td><td> </td> 04/17/2021 08:19:00 AM EDT [facility] POC ARTERIAL BLOOD GAS W LYTES <td>POC ARTERIAL BLOOD GAS W LYTES</td><td>Routine</td><td>04/17/2021 7:45 AM EDT</td><td></td><td> </td> 04/17/2021 07:45:00 AM EDT [facility] POC ACT <td>POC ACT</td><td>Routine< /td><td>04/17/2021 7:44 AM EDT</td><td></td><td> </td> 04/17/2021 07:44:00 AM EDT [facility] REPAIR OR REPLACEMENT, MITRAL VALVE, MIN IMALLY INVASIVE, RIGHT THORACOTOMY APPROACH, USING HEARTPORT TECHNIQUE <td>REPAIR OR REPLACEMENT, MITRAL VALVE, MINIMALLY INVASIVE, RIGHT THORACOTOMY APPROACH, USING HEARTPORT TECHNIQUE</td><td></td><td>04/17/2021 7:24 AM EDT</td><td> Rheumatic mitral regurgitation</td><td></td> 04/17/2021 07:24:00 AM EDT - 04/17/2021 11:55:00 AM EDT Rheumatic mitral regurgitation [facility] Rheumatic mitral regurgitation ECG TRANSESOPHAG R-T 2D W/PRB IMG ACQUISJ I&R <td>ECHO CARDIOGRAM TRANSESOPHAGEAL</td><td>Routine</td><td>04/17/2021 7:21 AM EDT</td><td></td><td> </td> 04/17/2021 07:21:51 AM EDT [facility] GLUC BLD GLUC MNTR DEV CLEARED FDA SPEC HOME USE <td>P OCT GLUCOSE</td><td>Routine</td><td>04/17/2021 6:27 AM EDT</td><td></td><td> </td> 04/17/2021 06:27:00 AM EDT [facility] BLOOD TYPING ABO <td>PREPARE RBC</td><td>Rout ine</td><td>04/17/2021 12:01 AM EDT</td><td></td><td> </td> 04/17/2021 12:01:00 AM EDT [facility] ECG ROUTINE ECG W/LEAST 12 LDS TRCG ONLY W/O I&R <td>E CG 12- LEAD</td><td>Routine</td><td>04/14/2021 10:03 AM EDT</td><td> Rheumatic mitral regurgitation</td><td></td> 04/14/2021 10:03:21 AM EDT Rheumatic mitral regurgitation [facility] Rheumatic mitral regurgitation URNLS DIP STICK/TABLET RGNT AUTO W/O MICROSCOPY <td>UR INALYSIS W/O MICRO</td><td>Routine</td><td>04/14/2021 10:00 AM EDT</td><td> Rheumatic mitral regurgitation</td><td> </td> 04/14/2021 10:00:00 AM EDT Rheumatic mitral regurgitation [facility] Rheumatic mitral regurgitation ROOM TEMP AB SCREEN <td>ROOM TEMP AB SCREEN</td> <td>Routine</td><td>04/14/2021 9:40 AM EDT</td><td> Rheumatic mitral regurgitation</td><td> </td> 04/14/2021 09:40:00 AM EDT Rheumatic mitral regurgitation [facility] Rheumatic mitral regurgitation NT PRO BNP <td>NT PRO BNP</td><td>Routi ne</td><td>04/14/2021 9:40 AM EDT</td><td> Rheumatic mitral regurgitation</td><td> </td> 04/14/2021 09:40:00 AM EDT Rheumatic mitral regurgitation [facility] Rheumatic mitral regurgitation THROMBOPLASTIN TIME PARTIAL PLASMA/WHOLE BLOOD <td>APTT</td><td>Routine</td><td>04/14/2021 9:40 AM EDT</td><td> Rheumatic mitral regurgitation</td><td> </td> 04/14/2021 09:40:00 AM EDT Rheumatic mitral regurgitation [facility] Rheumatic mitral regurgitation PROTHROMBIN TIME <td>PROTIME-INR</td><td>Rout ine</td><td>04/14/2021 9:40 AM EDT</td><td> Rheumatic mitral regurgitation</td><td> </td> 04/14/2021 09:40:00 AM EDT Rheumatic mitral regurgitation [facility] Rheumatic mitral regurgitation BLOOD COUNT COMPLETE AUTO&AUTO DIFRNTL WBC COUNT <td>C BC AND DIFFERENTIAL</td><td>Routine</td><td>04/14/2021 9:40 AM EDT</td><td> Rheumatic mitral regurgitation</td><td> </td> 04/14/2021 09:40:00 AM EDT Rheumatic mitral regurgitation [facility] Rheumatic mitral regurgitation BLOOD TYPING ABO <td>TYPE AND SCREEN</td><td> Routine</td><td>04/14/2021 9:40 AM EDT</td><td> Rheumatic mitral regurgitation</td><td> </td> 04/14/2021 09:40:00 AM EDT Rheumatic mitral regurgitation [facility] Rheumatic mitral regurgitation HEMOGLOBIN GLYCOSYLATED A1C <td>HEMOGLOBIN A1C</td><td>Routine</td><td>04/14/2021 9:40 AM EDT</td><td> Rheumatic mitral regurgitation</td><td> </td> 04/14/2021 09:40:00 AM EDT Rheumatic mitral regurgitation [facility] Rheumatic mitral regurgitation COMPREHENSIVE METABOLIC PANEL <td>COMPREHENSIVE METABO LIC PANEL</td><td>Routine</td><td>04/14/2021 9:40 AM EDT</td><td> Rheumatic mitral regurgitation</td><td> </td> 04/14/2021 09:40:00 AM EDT Rheumatic mitral regurgitation [facility] Rheumatic mitral regurgitation POC ARTERIAL BLOOD GAS <td>POC ARTERIAL BLOOD GAS</td><td>Routine</td><td>04/14/2021 9:38 AM EDT</td><td></td><td> </td> 04/14/2021 09:38:00 AM EDT [facility] Bronchospasm Evaluation 03/20/2021 12:00:00 AM EDT [facility] ([facility]) Plethysmography Determination Lung Volumes & Per Airway Resi st 03/20/2021 12:00:00 AM EDT [facility] ([facility]) DIFFUSING CAPACITY 03/20/2021 12:00:00 AM EDT [facility] ([facility] ) ECG ROUTINE ECG W/LEAST 12 LDS W/I&R <td>POCT AMB EKG</td><td>Routine</td><td>02/06/2021 5:47 PM EDT</td><td> Rheumatic mitral stenosis with insufficiency</td><td> </td> 02/06/2021 05:47:00 PM EDT Rheumatic mitral stenosis with insufficiency [facility] Rheumatic mitral stenosis with insuffici ency OFFICE OUTPATIENT VISIT 15 MINUTES 01/15/2021 12:00:00 AM EDT [facility] ([facility] ECG ROUTINE ECG W/LEAST 12 LDS W/I&R <td>POCT AMB EKG</td><td>Routine</td><td>01/06/2021</td><td> Shortness of breath</td><td> </td> 01/06/2021 12:00:00 AM EDT Shortness of breath [facility] Shortness of breath RADEX SPINE ENTIRE SURVEY STD ANTEROPOST&LAT <td>CARDI AC CATHETERIZATION</td><td>Routine</td><td>12/10/2020 1:25 PM EDT</td><td> Shortness of breath Rheumatic mitral regurgitation Rheumatic mitral stenosis with insufficiency Peripheral vascular disease Hypercholesterolemia Smoker Right carotid bruit</td><td> </td> 12/10/2020 05:25:21 PM EDT Right carotid bruitSmokerHypercholestero lemiaPeripheral vascular diseaseRheumatic mitral stenosis with insufficiencyRheumatic mitral regurgitationShortness of breath [facility] Right carotid bruit Smoker Hypercholesterolemia Peripheral vascular disease Rheumatic mitral stenosis with insuffici ency Rheumatic mitral regurgitation Shortness of breath COVID/FLU AB/RSV PCR <td>COVID/FLU AB/RSV PCR</td ><td>STAT</td><td>12/10/2020 9:50 AM EDT</td><td></td><td> </td> 12/10/2020 01:50:00 PM EDT [facility] BLOOD COUNT COMPLETE AUTOMATED <td>CBC</td><td>STAT</t d><td>12/10/2020 9:36 AM EDT</td><td></td><td> </td> 12/10/2020 01:36:00 PM EDT [facility] BASIC METABOLIC PANEL CALCIUM TOTAL <td>BASIC METABOLI C PANEL</td><td>STAT</td><td>12/10/2020 9:36 AM EDT</td><td></td><td> </td> 12/10/2020 01:36:00 PM EDT [facility] ECG ROUTINE ECG W/LEAST 12 LDS W/I&R <td>POCT AMB EKG</td><td>Routine</td><td>12/09/2020 10:59 AM EDT</td><td> Shortness of breath</td><td> </td> 12/09/2020 02:59:00 PM EDT Shortness of breath [facility] Shortness of breath OFFICE OUTPATIENT NEW 30 MINUTES 11/26/2020 12:00:00 A M EDT [facility] ([facility]) Results ID Date Data Source US Duplex, Ext LOWER Veins, Unilat 06/20/2021 12:00:00 AM ED T eCW1 ([facility]) Name Value Range Interpretation Code Description Data Romi rce(s) Supporting Document(s) US Duplex, Ext LOWER Vein s, Unilat eCW ([facility]) ID Date Data Source [id number] 05/21/2021 06:14:57 PM [facility] [place]FORMATIONPatient MRN Name Date of Age Gend*PT [id number] DarrylAdrian Jesus 1970 50 years M ---PT Location Admission Date/Time Visit ID Attending Provider --- --- --- --- EPI ID CSN Admitting Provider [id number] ---Agree with the proposed plan. Name Value Range Interpretation Code Description Data Romi rce(s) Supporting Document(s) ID Date Data Source [id number] 05/08/2021 05:44:19 PM EDT [facility] [place] INFORMATIONPatient MRN Name Date of Age Gend*PT [id number] Adrian Andrews 1970 50 years M IPPT Location Admission Date/Time Visit ID Attending [id number] 04/17/21 0518 --- --- EPI ID CSN Admitting Provider [id number] Chandler Corrigan MD([id number]) [place] [address] OPERATIVE REPORT OPNAME: ADRIAN ANDREWS#: [id number] #: [id number] ADMISSION DATE: 04/17/2021OB: 1970 SEX: M PT TYPE: I CardACCT #: [id number] CARE PHYSICIAN: MAURICIO CUELLARDATE OF OPERATION: 04/17/2021REOPERATIVE DIAGNOSES:Severe symptomatic mitral stenosis and mitral regurgitation.POSTOPERATIVE DIAGNOSES:Severe symptomatic mitral stenosis and mitral regurgitation.PROCEDURE:Minimally invasive mitral valve replacement consisting of #29 MedtronicMosaic bioprosthetic valve.SURGEON:Chandler Corrigan MDASSISTANT:CARIN Carmona.ANESTHESIA:General endotracheal.ANESTHESIOLOGIST:Rowan Macedo MDINDICATIONS FOR PROCEDURE:Patient is a pleasant 50-year-old gentleman with a possible history ofrheumatic fever in the past, who has developed [place] Heart Associationclass III symptoms and was found tohave evidence of at least moderate mitral stenosis and cbyustaw-ax-nppgsdookhbb regurgitation. This was clearly a mixed picture [...] the Cardiovascular Intensive CareUnit.KALLIE Valdes/NAVEEN Job #: [id number] DOC #: [id number]: Primary Care Physician Toby Parish MD Name Value Range Interpretation Code Description Data Romi rce(s) Supporting Document(s) ID Date Data Source [id number] 04/23/2021 05:06:19 PM EDT [address] [address]Cgjjdbd Name: ADRIAN ANDREWSDOB: 1970Sex: MOrdering Provider: RALPH BENITEZuthberonica Prov: RALPH FRANKLINReferralexsandra Provider: Procedure Performed: / XR CHEST PORTABLEExam Date: 04/23/2021 17:03MRN: [id number] Number: [id number] Class: InpatientAccount #: [id number] for Exam: F/U PneumothoraxTechnique: AP portable view obtained.Comparison: 04/23/2021Findings: Small right apical pneumothorax unchanged compared to prior exam.Small right pleural effusion. Airspace consolidation right lung base likely representing atelectasis. Small amount of atelectasis medial left lung base unchanged.Pacemaker unchanged.IMPRESSION: Small right apical pneumothorax unchanged compared to prior exam.Report electronically signed by: AZALEA BAL On 04/23/2021 5:06 PMWorkstation ID: [id number] - [id number] Name Value Range Interpretation Code Description Data Romi rce(s) Supporting Document(s) ID Date Data Source [id number] 04/23/2021 03:35:06 PM EDT [facility] [place] INFORMATIONPatient MRN Name Date of Age Gend*PT [id number] Adrian Andrews 1970 50 years M IPPT Location Admission Date/Time Visit ID Attending [id number] 04/17/21 0518 --- Chandler Corrigan MD([id number]) EPI ID CSN Admitting Provider [id number] Chandler Corrigan MD([id number]) Attestation signed by Rachel Drummond MD at 04/23/2021 3:35 PMI saw and evaluated the patient and reviewed the note. I agree with thehistory, physical and medical decision making.Signature: Rachel Drummond MDDate: April 23, 2021Time: 3:34 PM --Surgical Discharge SummaryAdrian Lee [facility] HospitalN: [id number] date: 04/17/2021dmitting Physician: PRESLEY Valdesischarge date and time:Discharge Orders Placed(From admission, onward) NoneDischarge Physician: Ike Arreaga Diagnosis: Rheumatic mitral regurgitationSecondary Diagnoses:Active Hospital Problems Diagnosis Date Noted Rheumatic mitral regurgitation 12/09/2020 Added automatically from request for surgery [id number] Hospital ProblemsNo resolved problems to display.Discharge Medications: [...] with Dr. Corrigan in 1 week, with electrical maintenance engineer Dr. Parish in2-3 weeks, and with [...] rce(s) Supporting Document(s) ID Date Data Source [id number] 04/23/2021 01:43:11 PM EDT [address] [address]Lcmrcyd Name: ADRIAN SUMNERB: 1970Sex: MOrdering Provider: ADRIANA MONTEMAYORAuthorizing Prov: ADRIANA MONTEMAYORReferralexsandra Provider: Procedure Performed: / XR CHEST PA AND LATERALExam Date: 04/23/2021 13:39MRN: [id number] Number: [id number] Class: InpatientAccount #: [id number] for Exam: chest tube removal, PTXTechnique: PA [...] AZALEA BAL On 04/23/2021 1:43 PMWorkstation ID: [id number] - [id number] Name Value Range Interpretation Code Description Data Romi rce(s) Supporting Document(s) ID Date Data Source [id number] 04/23/2021 02:57:39 PM EDT [facility] Name Value Range Interpretation Code Description Data Romi rce(s) Supporting Document(s) MAGNESIUM 2.6 mg/dL (1.7-2.4) H [facility] ID Date Data Source [id number] 04/23/2021 02:57:39 PM EDT [facility] Name Value Range Interpretation Code Description Data Romi rce(s) Supporting Document(s) SODIUM 137 mmol/L (136-145) [facility] POTASSIUM 4.5 mmol/L (3.6-5.2) [facility] CHLORIDE 103 mmol/L (100-108) [facility] CO2 26 mmol/L (22-31) [facility] ANION GAP 8 mmol/L (7-16) [facility] UREA NITROGEN 12 mg/dL (7-24) [facility] CREATININE 1.11 mg/dL (0.80-1.30) [facility] BUN/CREAT RATIO 10.8 RATIO (10.0-20.0) [facility] GLUCOSE 74 mg/dL (70-99) [facility] CALCIUM 8.9 mg/dL (8.4-10.2) [facility] GFR >60 ml/min/1.73m2 (>59) [facility] GFR ( AMER) >60 ml/min/1.73m2 (>59) [facility] GFR INTERPRETATION [facility] --NORMAL KIDNEY FUNCTION OR MILD DISEASE - GFR >OR= 60CHRONIC KIDNEY DISEASE - GFR 15 - 59RENAL FAILURE - GFR <15 Est. GFR calculation based on the MDRDstudy equation, which assumes a steadystate for creatinine. Est. GFR should notbe used for medication dosing. ID Date Data Source [id number] 04/23/2021 02:22:41 PM EDT [facility] Name Value Range Interpretation Code Description Data Romi rce(s) Supporting Document(s) WBC 7.5 10*3/uL (4.1-11.0) [facility] RBC 3.70 10*6/uL (4.60-6.10) L [facility] HGB 11.1 g/dL (13.5-18.0) L [facility] HCT 33.9 % (41.0-53.0) L [facility] MCV 91.5 fL (80.0-95.0) [facility] MCH 29.8 pg (27.0-32.0) [facility] MCHC 32.6 g/dL (32.0-36.0) [facility] RDW 15.7 % (10.5-14.5) H [facility] PLT 171 10*3/uL (150-450) [facility] MPV 9.5 fL (7.1-10.7) [facility] ID Date Data Source [id number] 04/23/2021 02:15:53 PM EDT [facility] Name Value Range Interpretation Code Description Data Romi rce(s) Supporting Document(s) PT 13.4 s (9.2-11.9) H [facility] INR 1.30 [facility] SUGGESTED THERAPEUTIC RANGES USING INR F ORSTABILIZED ANTICOAGULATED PATIENTS:STANDARD DOSE THERAPY INR 2.0-3.0 DVT, PE, PREVENT DVT OR EMBOLISMHIGH DOSE THERAPY INR 2.5-3.5 PREVENT EMBOLISM FROM MECHANICAL HEART VALVE ID Date Data Source [id number] 04/23/2021 09:48:43 AM EDT [facility] Name Value Range Interpretation Code Description Data Romi rce(s) Supporting Document(s) EKG [facility] XEYHYb1jFjPVAmNjv1WsKfMjHOMiPI6iidb7F5F8tYXnZ5XhwVZfu9taJ7HhA5ZtBAVnDVMNYP8CuDOw jb2 [file] mO+ZLAAFnjDSzyN7iDra6kF1u3Wc1XaVBrbZ1NCxTi2T1cuev5QKfBIZl2WnaS4QllB9L5KoaiGFa+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 [file] u6zkY8a2aR1Mlmn+TGE05BsVub4K82EFUAOsCg09pMMG2Mwnuc0mpuQFXKaJOGGBPlEiAPJJIEVTX+Сергей [file] of product tJ9rWyGckq3ckiZ+K4fPE9zs6VOhD7Yp8NZ9K2VCfezh2eTaKlNn2bJJ6vJduDokrqI+ot2kKpf9GuLl At4jbRi9BwjGKpzC+9PI+azUVznrWHoa/Z5t/q0cfTOfzf7vNhnxl7B9vhButI3r2PTN0/ls+29UvLP2 1BU92/v887nL5bW383U77ac/9rby1t+roqpSdx4Pgc [file] bciHGfB759cTCuTdwgwEoRZ/s+R+oj5mkLdfQ [file] MDAwMDAgbiAKMDAwMDAwMTQwNiAwMDAwMCBuIAowMD WnEFE0HfTeCREiGEStTR6lGuBoFEEsGFE0ODuhXYBsFAPizzSGXXKfNTAeFOyuDNBuMKUeRUYkWSrjQG VkFAOnRVQ5HSCoHZMmMC2yKyHsKUKvUUGvJNAfAqU6OgQkBxPCePSdnHxskzs6STtuH4h4CTZnGApzJE 0kndFjLXKsMffzJd0agGS9RLCxFraGIe0Xh9KuxeQ3bqZdUlXeCqZrZnhiBGIRNj== ID Date Data Source [id number] 04/23/2021 08:11:59 AM EDT [address] [address]Wlsesjy Name: ADRIAN ANDREWSB: 1970Sex: MOrdering Provider: ALVERTO Sneed Prov: ALVERTO Becker Provider: Procedure Performed: / XR CHEST PA AND LATERALExam Date: 04/23/2021 08:01MRN: [id number] Number: [id number] Class: InpatientAccount #: [id number] for Exam: ATX/effusionsTechnique: PA and lateral views [...] AZALEA PLAZA On 04/23/2021 8:11 AMWorkstation ID: [id number] - [id number] Name Value Range Interpretation Code Description Data Romi rce(s) Supporting Document(s) ID Date Data Source [id number] 04/22/2021 06:41:59 PM EDT [address] [address]Pxwgvmh Name: ADRIAN SUMNERB: 1970Sex: MOrdering Provider: ALVERTO Sneed Prov: ALVERTO Becker Provider: Procedure Performed: / XR CHEST PORTABLEExam Date: 04/22/2021 18:39MRN: [id number] Number: [id number] Class: InpatientAccount #: [id number] for Exam: in PACU- s/p PPMTechnique: AP portable view obtained.Comparison: 04/22/2021 0659 hoursFindings: Pacemaker appears be in satisfactory position. No pneumothorax. Right-sided chest tube in place. Mild bibasilar atelectasis. Mediastinum unrema rkable.IMPRESSION: Pacemaker appears to be in satisfactory position. No pneumothorax. Mild bibasilar atelectasis.Report electronically signed by: AZALEA BAL On 04/22/2021 6:41 PMWorkstation ID: [id number] - [id number] Name Value Range Interpretation Code Description Data Romi rce(s) Supporting Document(s) ID Date Data Source [id number] 04/22/2021 06:20:30 PM [facility] [place] NT INFORMATIONPatient MRN Name Date of Age Gend*PT [id number] Adrian Andrews 1970 50 years M IPPT Location Admission Date/Time Visit ID [facility] 0518 --- Chandler Corrigan MD([id number]) EPI ID CSN Admitting Provider [id number] Chandler Corrigan MD([id number])Permanent Pacemaker ImplantationCardiovascular and Thoracic Surgery Operative ReportDate of Procedure: 04/22/2021 Patient's PCP: URI HENDRICKSatient Name: Adrian Andrews 50 years maleDate of :1970MRN: [id number]: [id number]: [facility] Note Date and Time: 04/22/2021 6:17 PMDate of Admission: 04/17/2021 5:18 AMSurgeon(s): Surgeon(s):Gray Negrete Physician:Dr. Chioperative diagnoses:1. Post Mitral Surgery Third Degree AV BlockPostoperative diagnoses:1. Post Mitral Surgery Third Degree AV BlockProcedure:1. DDD Dual Chamber Pacemaker ImplantationSurgeon:Rachel Drummond MDAnesthesia:Peter Provider(s):Anesthesiologist: Nick Senior MD; YUNIOR JenkinsRNA: Mercedes Beltran CRNAEstimated Blood Loss:20 ccStaff:OR Maintenance Painter: Destinee Montemayor RN; Pepper Page RNRadiology Tech: Bernardo Bello Scrub Person: Jcarlos Patricia Nurse: Chayito Montes RNImplants:Medtronic Pacemaker Model [place] serial # [id number] was placedAtrial Lead Model # 4076-52 Serial Number [id number]: Threshold AF, Gzgiopiwx179 Ohms.Ventricular Lead Model # 4076-58 Serial Number [id number]: Threshold 0.75 V,Impedance 817 Ohms.Description of Procedure:After [...] recovery room in stable condition.Rachel Drummond MD [facility] FACSCardiovascular Thoracic Surgery04/22/2021, 6:17 PM Name Value Range Interpretation Code Description Data Romi rce(s) Supporting Document(s) ID Date Data Source [id number] 04/22/2021 06:13:55 PM EDT [address] [id number] Name: ADRIAN SUMNERB: 1970Sex: MOrdering Provider: RACHEL DRUMMONDAuthorizing Prov: RACHEL DRUMMONDReferring Provider: Procedure Performed: / XR FLUORO PACEMAKER INSERTExam Date: 04/22/2021 18:10MRN: [id number] Number: [id number] Class: InpatientAccount #: [id number] for Exam: heart blockTechnique: Fluoroscopy with no digital spot images obtained.Fluoroscopy time: 103 SecondsNumber of Spot Images:Comparison: NoneFindings: Fluoroscopy performed during pacemaker insertion procedure.IMPRESSION: Fluoroscopy performed during pacemaker insertion procedure. One image obtained.Report electronically signed by: AZALEA BAL On 04/22/2021 6:13 PMWorkstation ID: [id number] Name Value Range Interpretation Code Description Data Romi rce(s) Supporting Document(s) ID Date Data Source [id number] 04/22/2021 04:45:15 PM EDT [facility] [place] INFORMATIONPatient MRN Name Date of Age Gend*PT [id number] Adrian Andrews 1970 50 years M IPPT Location Admission Date/Time Visit ID Attending [id number] 04/17/21 0518 --- Chandler Corrigan MD([id number]) EPI ID CSN Admitting Provider [id number] Chandler Corrigan MD([id number])H&P and daily progress notes since admission reviewed. Changes to the patient'scondition since admission have been documented in the progress notes and noted.Rachel Drummond MD4:44 PM Name Value Range Interpretation Code Description Data Romi rce(s) Supporting Document(s) ID Date Data Source [id number] 04/22/2021 06:22:24 PM EDT Geeta Arnold [facility] SPEC EXP DATE 04/25/2021ATI ENT ABO/Rh O NEGATIVEANTIBODY SCREEN NEGATIVETESTING SITE PERFORMED AT [address] [place] [id number] BANK COMMENT BLOOD TYPE CONFIRMED. Name Value Range Interpretation Code Description Data Romi rce(s) Supporting Document(s) TYPE AND SCREEN [facility] [place] [facility] f RIC ID Date Data Source [id number] 04/22/2021 01:55:00 PM EDT [facility] Name Value Range Interpretation Code Description Data Romi rce(s) Supporting Document(s) SARS coronavirus 2 RNA [Presence] in Res piratory specimen by LEON with probe detection NOT DETECTED [place]SDOH This lab was reported by [facility] [place] [facility]. ID Date Data Source [id number] 04/22/2021 04:27:15 PM EDT [facility] [place] sunny GARCIA Name Value Range Interpretation Code Description Data Romi rce(s) Supporting Document(s) SPECIMEN DESCRIPTION [facility] INFLUENZA A (NEG) [facility] [place] [facility] INFLUENZA B (NEG) [facility] [place] [facility] RSV (NEG) [facility] [place] [facility] COMMENT [facility] [place] [facility] THE [place] FDA HAS MADE THIS TEST AVAILABL EUNDER AN EMERGENCY USE AUTHORIZATION(EUA) FOR THE DETECTION AND/OR DIAGNOSISOF THE VIRUS THAT CAUSES COVID-19.PERFORMED AT [address] [place] [id number] COVID19 RESULT (NDET) [facility] [place] [facility] THIS ASSAY AMPLIFIES AND DETECTSTHE TARG ET RNA USING REAL-TIME PCR.TESTING PERFORMED ON 5minutes GENEXPERTNEGATIVE 2019_NCOV RT-PCR RESULTS DONOT PRECLUDE 2019_NCOV INFECTION ANDSHOULD NOT BE USED THE SOLE BASISFOR PATIENT MANAGEMENT DECISIONS. FIRST TEST [facility] [place] [facility] EMPLOYED IN HLTHCARE [facility] SYMPTOMATIC [facility] [place] [facility] Y DATE OF SYMPT ONSET [facility] HOSPITALIZED [facility] [place] [facility] [place] ICU [facility] [place] [facility] CONGREGATE CARE SET [facility] [place] [facility] ID Date Data Source [id number] 04/22/2021 10:33:39 AM EDT [facility] [place] [facility] GARCIA Name Value Range Interpretation Code Description Data Romi rce(s) Supporting Document(s) POTASSIUM 4.3 mmol/L (3.6-5.2) [facility] [place] [facility] ID Date Data Source [id number] 04/22/2021 07:54:56 AM EDT [address] [id number] Name: ADRIAN SUMNERB: 1970Sex: MOrdering Provider: MAURICIO SAUCEDAAuthorimarta Prov: MAURICIO SAUCEDAReferralexsandra Provider: Procedure Performed: / XR CHEST PORTABLEExam Date: 04/22/2021 07:05MRN: [id number] Number: [id number] Class: InpatientAccount #: [id number] for Exam: PneumoniaTechnique: AP portable view obtained.Comparison: [...] AZALEA PLAZA On 04/22/2021 7:54 AMWorkstation ID: [id number] Name Value Range Interpretation Code Description Data Romi rce(s) Supporting Document(s) ID Date Data Source [id number] 04/22/2021 04:41:34 AM EDT [facility] [place] [facility] Name Value Range Interpretation Code Description Data Romi rce(s) Supporting Document(s) MAGNESIUM 2.0 mg/dL (1.7-2.4) [facility] [place] [facility] ID Date Data Source [id number] 04/22/2021 04:41:34 AM EDT [facility] [place] [facility] Name Value Range Interpretation Code Description Data Romi rce(s) Supporting Document(s) SODIUM 139 mmol/L (136-145) [facility] [place] [facility] POTASSIUM 4.0 mmol/L (3.6-5.2) [facility] [place] [facility] CHLORIDE 107 mmol/L (100-108) [facility] [place] [facility] CO2 27 mmol/L (22-31) [facility] [place] [facility] ANION GAP 5 mmol/L (7-16) L [facility] [place] [facility] UREA NITROGEN 11 mg/dL (7-24) [facility] [place] [facility] CREATININE 0.92 mg/dL (0.80-1.30) [facility] [place] [facility] BUN/CREAT RATIO 12.0 RATIO (10.0-20.0) [facility] GLUCOSE 89 mg/dL (70-99) [facility] [place] [facility] CALCIUM 8.4 mg/dL (8.4-10.2) [facility] [place] [facility] GFR >60 ml/min/1.73m2 (>59) [facility] [place] [facility] GFR ( AMER) >60 ml/min/1.73m2 (>59) [facility] [place] [facility] GFR INTERPRETATION [facility] --NORMAL KIDNEY FUNCTION OR MILD DISEASE - GFR >OR= 60CHRONIC KIDNEY DISEASE - GFR 15 - 59RENAL FAILURE - GFR <15 Est. GFR calculation based on the MDRDstudy equation, which assumes a steadystate for creatinine. Est. GFR should notbe used for medication dosing. ID Date Data Source [id number] 04/22/2021 04:05:45 AM EDT [facility] [place] [facility] Name Value Range Interpretation Code Description Data Romi rce(s) Supporting Document(s) WBC 6.9 10*3/uL (4.1-11.0) [facility] [place] [facility] [place] RBC 3.27 10*6/uL (4.60-6.10) L [facility] [place] [facility] HGB 9.8 g/dL (13.5-18.0) L [facility] [place] [facility] HCT 30.0 % (41.0-53.0) L [facility] [place] [facility] MCV 91.6 fL (80.0-95.0) [facility] [place] [facility] MCH 30.0 pg (27.0-32.0) [facility] [place] [facility] MCHC 32.7 g/dL (32.0-36.0) [facility] [place] [facility] RDW 15.9 % (10.5-14.5) H [facility] [place] [facility] PLT 127 10*3/uL (150-450) L [facility] [place] [facility] MPV 8.8 fL (7.1-10.7) [facility] [place] [facility] ID Date Data Source [id number] 04/22/2021 04:20:20 AM EDT [facility] [place] [facility] Name Value Range Interpretation Code Description Data Romi rce(s) Supporting Document(s) PT 16.2 s (9.2-11.9) H [facility] [place] [facility] INR 1.58 [facility] [place] [facility] SUGGESTED THERAPEUTIC RANGES USING INR F ORSTABILIZED ANTICOAGULATED PATIENTS:STANDARD DOSE THERAPY INR 2.0-3.0 DVT, PE, PREVENT DVT OR EMBOLISMHIGH DOSE THERAPY INR 2.5-3.5 PREVENT EMBOLISM FROM MECHANICAL HEART VALVE ID Date Data Source [id number] 04/21/2021 04:14:38 AM EDT [facility] [place] [facility] Name Value Range Interpretation Code Description Data Romi rce(s) Supporting Document(s) PT 29.8 s (9.2-11.9) H [facility] [place] [facility] INR 3.02 [facility] [place] [facility] SUGGESTED THERAPEUTIC RANGES USING INR F ORSTABILIZED ANTICOAGULATED PATIENTS:STANDARD DOSE THERAPY INR 2.0-3.0 DVT, PE, PREVENT DVT OR EMBOLISMHIGH DOSE THERAPY INR 2.5-3.5 PREVENT EMBOLISM FROM MECHANICAL HEART VALVE ID Date Data Source [id number] 04/21/2021 04:36:06 AM EDT [facility] [place] [facility] Name Value Range Interpretation Code Description Data Romi rce(s) Supporting Document(s) SODIUM 138 mmol/L (136-145) [facility] [place] [facility] POTASSIUM 4.2 mmol/L (3.6-5.2) [facility] [place] [facility] CHLORIDE 105 mmol/L (100-108) [facility] [place] [facility] CO2 26 mmol/L (22-31) [facility] [place] [facility] ANION GAP 7 mmol/L (7-16) [facility] [place] [facility] UREA NITROGEN 12 mg/dL (7-24) [facility] [place] [facility] CREATININE 0.85 mg/dL (0.80-1.30) [facility] [place] [facility] BUN/CREAT RATIO 14.1 RATIO (10.0-20.0) [facility] GLUCOSE 98 mg/dL (70-99) [facility] [place] [facility] CALCIUM 8.0 mg/dL (8.4-10.2) L [facility] [place] [facility] GFR >60 ml/min/1.73m2 (>59) [facility] [place] [facility] GFR ( AMER) >60 ml/min/1.73m2 (>59) [facility] [place] [facility] GFR INTERPRETATION [facility] --NORMAL KIDNEY FUNCTION OR MILD DISEASE - GFR >OR= 60CHRONIC KIDNEY DISEASE - GFR 15 - 59RENAL FAILURE - GFR <15 Est. GFR calculation based on the MDRDstudy equation, which assumes a steadystate for creatinine. Est. GFR should notbe used for medication dosing. ID Date Data Source [id number] 04/21/2021 04:08:43 AM EDT [facility] [place] [facility] Name Value Range Interpretation Code Description Data Romi rce(s) Supporting Document(s) WBC 8.5 10*3/uL (4.1-11.0) [facility] [place] [facility] [place] RBC 3.35 10*6/uL (4.60-6.10) L [facility] [place] [facility] HGB 10.2 g/dL (13.5-18.0) L [facility] [place] [facility] HCT 30.8 % (41.0-53.0) L [facility] [place] [facility] MCV 92.1 fL (80.0-95.0) [facility] [place] [facility] MCH 30.4 pg (27.0-32.0) [facility] [place] [facility] MCHC 33.1 g/dL (32.0-36.0) [facility] [place] [facility] RDW 16.5 % (10.5-14.5) H [facility] [place] [facility] PLT 126 10*3/uL (150-450) L [facility] [place] [facility] MPV 9.1 fL (7.1-10.7) [facility] [place] [facility] ID Date Data Source [id number] 04/20/2021 12:04:24 PM EDT [address] [id number] Name: ADRIAN SUMNERB: 1970Sex: MOrdering Provider: RON Renteria Prov: RON Ernst Provider: Procedure Performed: / XR CHEST PORTABLEExam Date: 04/20/2021 11:57MRN: [id number] Number: [id number] Class: InpatientAccount #: [id number] for Exam: ptx, CT to H2O sealTechnique: [...] AZALEA BAL On 04/20/2021 12:04 PMWorkstation ID: [id number] Name Value Range Interpretation Code Description Data Romi rce(s) Supporting Document(s) ID Date Data Source [id number] 04/20/2021 12:37:07 PM EDT [facility] [place] [facility] Name Value Range Interpretation Code Description Data Romi rce(s) Supporting Document(s) POTASSIUM 4.4 mmol/L (3.6-5.2) [facility] [place] [facility] ID Date Data Source [id number] 04/20/2021 07:54:28 AM EDT [facility] [place] [facility] Name Value Range Interpretation Code Description Data Romi rce(s) Supporting Document(s) POC NOVA GLU 115 mg/dL (70-99) H [facility] [place] [facility] [place] [facility]FOR[facility] ID Date Data Source [id number] 04/20/2021 09:26:51 AM EDT [facility] [place] [facility] Name Value Range Interpretation Code Description Data Romi rce(s) Supporting Document(s) TOTAL PROTEIN 6.6 g/dL (6.4-8.2) [facility] [place] [facility] ALBUMIN 3.0 g/dL (3.5-4.6) L [facility] [place] [facility] GLOBULIN 3.6 g/dL (2.7-4.3) [facility] [place] [facility] ALB/GLOB RATIO 0.8 RATIO [facility] [place] [facility] BILIRUBIN,TOTAL 0.4 mg/dL (0.0-1.0) [facility] [place] [facility] PLEASE NOTE:Total bilirubin results may be falselyelevated in patients taking Eltrombopag. BILIRUBIN,CONJUGATED 0.2 mg/dL (0.0-0.3) [facility] BILIRUBIN,UNCONJ. 0.2 mg/dL (0.0-0.7) [facility] [place] [facility] ALKALINE PHOSPHATASE 77 U/L (45-117) [facility] AST (SGOT) 23 U/L (11-39) [facility] [place] [facility] ALT (SGPT) 16 U/L (12-78) [facility] [place] [facility] ID Date Data Source [id number] 04/20/2021 08:35:21 AM EDT [facility] [place] [facility] Name Value Range Interpretation Code Description Data Romi rce(s) Supporting Document(s) POTASSIUM 3.9 mmol/L (3.6-5.2) [facility] [place] [facility] ID Date Data Source [id number] 04/20/2021 03:54:21 AM EDT [facility] [place] [facility] Name Value Range Interpretation Code Description Data Romi rce(s) Supporting Document(s) MAGNESIUM 2.4 mg/dL (1.7-2.4) [facility] [place] [facility] ID Date Data Source [id number] 04/20/2021 03:54:21 AM EDT [facility] [place] [facility] Name Value Range Interpretation Code Description Data Romi rce(s) Supporting Document(s) SODIUM 140 mmol/L (136-145) [facility] [place] [facility] POTASSIUM 3.9 mmol/L (3.6-5.2) [facility] [place] [facility] CHLORIDE 109 mmol/L (100-108) H [facility] [place] [facility] CO2 28 mmol/L (22-31) [facility] [place] [facility] ANION GAP 3 mmol/L (7-16) L [facility] [place] [facility] UREA NITROGEN 19 mg/dL (7-24) [facility] [place] [facility] CREATININE 0.84 mg/dL (0.80-1.30) [facility] [place] [facility] BUN/CREAT RATIO 22.6 RATIO (10.0-20.0) H [facility] GLUCOSE 97 mg/dL (70-99) [facility] [place] [facility] CALCIUM 7.9 mg/dL (8.4-10.2) L [facility] [place] [facility] GFR >60 ml/min/1.73m2 (>59) [facility] [place] [facility] GFR ( AMER) >60 ml/min/1.73m2 (>59) [facility] [place] [facility] GFR INTERPRETATION [facility] --NORMAL KIDNEY FUNCTION OR MILD DISEASE - GFR >OR= 60CHRONIC KIDNEY DISEASE - GFR 15 - 59RENAL FAILURE - GFR <15 Est. GFR calculation based on the MDRDstudy equation, which assumes a steadystate for creatinine. Est. GFR should notbe used for medication dosing. ID Date Data Source [id number] 04/20/2021 03:35:37 AM EDT [facility] [place] [facility] Name Value Range Interpretation Code Description Data Romi rce(s) Supporting Document(s) CALCIUM IONIZED 5.00 mg/dL (4.64-5.28) [facility] IONIZED CALCIUM NORMALIZED TO PH 7.40 AN D 37 DEGREES C. ID Date Data Source [id number] 04/20/2021 03:28:56 AM EDT [facility] [place] [facility] Name Value Range Interpretation Code Description Data Romi rce(s) Supporting Document(s) PT 27.7 s (9.2-11.9) H [facility] [place] [facility] INR 2.80 [facility] [place] [facility] SUGGESTED THERAPEUTIC RANGES USING INR F ORSTABILIZED ANTICOAGULATED PATIENTS:STANDARD DOSE THERAPY INR 2.0-3.0 DVT, PE, PREVENT DVT OR EMBOLISMHIGH DOSE THERAPY INR 2.5-3.5 PREVENT EMBOLISM FROM MECHANICAL HEART VALVE ID Date Data Source [id number] 04/20/2021 02:59:42 AM EDT [facility] [place] [facility] Name Value Range Interpretation Code Description Data Romi rce(s) Supporting Document(s) WBC 8.5 10*3/uL (4.1-11.0) [facility] [place] [facility] [place] RBC 3.23 10*6/uL (4.60-6.10) L [facility] [place] [facility] HGB 9.8 g/dL (13.5-18.0) L [facility] [place] [facility] HCT 29.5 % (41.0-53.0) L [facility] [place] [facility] MCV 91.2 fL (80.0-95.0) [facility] [place] [facility] MCH 30.4 pg (27.0-32.0) [facility] [place] [facility] MCHC 33.4 g/dL (32.0-36.0) [facility] [place] [facility] RDW 16.1 % (10.5-14.5) H [facility] [place] [facility] PLT 115 10*3/uL (150-450) L [facility] [place] [facility] MPV 9.0 fL (7.1-10.7) [facility] [place] [facility] ID Date Data Source [id number] 04/19/2021 05:57:39 PM EDT [facility] [place] [facility] Name Value Range Interpretation Code Description Data Romi rce(s) Supporting Document(s) POC NOVA GLU 105 mg/dL (70-99) H [facility] [place] [facility] [place] [facility] ID Date Data Source [id number] 04/19/2021 02:40:19 PM EDT [address] [id number] Name: ADRIAN SUMNERB: 1970Sex: MOrdering Provider: RON Renteria Prov: RON Ernst Provider: Procedure Performed: / XR CHEST PORTABLEExam Date: 04/19/2021 13:24MRN: [id number] Number: [id number] Class: InpatientAccount #: [id number] for Exam: PTX, CT clampedTechnique: AP portable view obtained.Comparison: 04/17/2021Findings: Right-sided chest tubes remain in place. [place] catheter and nasogastric tube endotracheal tube been removed. There is now a large right-sided pneumothorax. Left lung is clear.IMPRESSION: New large right-sided pneumothorax status post chest tube clamping.Findings communicated utilizing critical results protocol.Report electronically signed by: GARCIA BLACKMAN On 04/19/2021 2:40 PMWorkstation ID: [id number] - [id number] Name Value Range Interpretation Code Description Data Romi rce(s) Supporting Document(s) ID Date Data Source [id number] 04/19/2021 01:02:28 PM EDT [facility] [place] [facility] Name Value Range Interpretation Code Description Data Romi rce(s) Supporting Document(s) POC NOVA GLU 104 mg/dL (70-99) H [facility] [place] [facility] [place] [facility] ID Date Data Source [id number] 04/19/2021 08:26:25 AM EDT [facility] [place] [facility] Name Value Range Interpretation Code Description Data Ormi rce(s) Supporting Document(s) POC NOVA GLU 109 mg/dL (70-99) H [facility] [place] [facility] [place] [facility] ID Date Data Source [id number] 04/19/2021 03:22:11 AM EDT [facility] [place] [facility] Name Value Range Interpretation Code Description Data Romi rce(s) Supporting Document(s) CALCIUM IONIZED 4.92 mg/dL (4.64-5.28) [facility] IONIZED CALCIUM NORMALIZED TO PH 7.40 AN D 37 DEGREES C. ID Date Data Source [id number] 04/19/2021 03:18:21 AM EDT [facility] [place] [facility] Name Value Range Interpretation Code Description Data Romi rce(s) Supporting Document(s) MAGNESIUM 2.1 mg/dL (1.7-2.4) [facility] [place] [facility] ID Date Data Source [id number] 04/19/2021 03:18:21 AM EDT [facility] [place] [facility] Name Value Range Interpretation Code Description Data Romi rce(s) Supporting Document(s) SODIUM 134 mmol/L (136-145) L [facility] [place] [facility] POTASSIUM 4.4 mmol/L (3.6-5.2) [facility] [place] [facility] CHLORIDE 102 mmol/L (100-108) [facility] [place] [facility] CO2 26 mmol/L (22-31) [facility] [place] [facility] ANION GAP 6 mmol/L (7-16) L [facility] [place] [facility] UREA NITROGEN 16 mg/dL (7-24) [facility] [place] [facility] CREATININE 0.83 mg/dL (0.80-1.30) [facility] [place] [facility] BUN/CREAT RATIO 19.3 RATIO (10.0-20.0) [facility] GLUCOSE 117 mg/dL (70-99) H [facility] [place] [facility] CALCIUM 8.3 mg/dL (8.4-10.2) L [facility] [place] [facility] GFR >60 ml/min/1.73m2 (>59) [facility] [place] [facility] GFR ( AMER) >60 ml/min/1.73m2 (>59) [facility] [place] [facility] GFR INTERPRETATION [facility] --NORMAL KIDNEY FUNCTION OR MILD DISEASE - GFR >OR= 60CHRONIC KIDNEY DISEASE - GFR 15 - 59RENAL FAILURE - GFR <15 Est. GFR calculation based on the MDRDstudy equation, which assumes a steadystate for creatinine. Est. GFR should notbe used for medication dosing. ID Date Data Source [id number] 04/19/2021 03:07:30 AM EDT [facility] [place] [facility] GARCIA Name Value Range Interpretation Code Description Data Romi rce(s) Supporting Document(s) PT 13.2 s (9.2-11.9) H [facility] [place] [facility] INR 1.27 [facility] [place] [facility] SUGGESTED THERAPEUTIC RANGES USING INR F ORSTABILIZED ANTICOAGULATED PATIENTS:STANDARD DOSE THERAPY INR 2.0-3.0 DVT, PE, PREVENT DVT OR EMBOLISMHIGH DOSE THERAPY INR 2.5-3.5 PREVENT EMBOLISM FROM MECHANICAL HEART VALVE ID Date Data Source [id number] 04/19/2021 02:58:50 AM EDT [facility] [place] [facility] GARCIA Name Value Range Interpretation Code Description Data Romi rce(s) Supporting Document(s) WBC 9.3 10*3/uL (4.1-11.0) [facility] [place] [facility] [place] RBC 3.49 10*6/uL (4.60-6.10) L [facility] [place] [facility] HGB 10.6 g/dL (13.5-18.0) L [facility] [place] [facility] HCT 31.8 % (41.0-53.0) L [facility] [place] [facility] MCV 91.1 fL (80.0-95.0) [facility] [place] [facility] MCH 30.3 pg (27.0-32.0) [facility] [place] [facility] MCHC 33.3 g/dL (32.0-36.0) [facility] [place] [facility] RDW 16.0 % (10.5-14.5) H [facility] [place] [facility] PLT 118 10*3/uL (150-450) L [facility] [place] [facility] MPV 9.0 fL (7.1-10.7) [facility] [place] [facility] ID Date Data Source [id number] 04/18/2021 06:41:39 PM EDT [facility] [place] [facility] Name Value Range Interpretation Code Description Data Romi rce(s) Supporting Document(s) POC NOVA GLU 123 mg/dL (70-99) H [facility] [place] [facility] [place] [facility] ID Date Data Source [id number] 04/18/2021 12:41:59 PM EDT [facility] [place] [facility] Name Value Range Interpretation Code Description Data Romi rce(s) Supporting Document(s) POC NOVA GLU 121 mg/dL (70-99) H [facility] [place] [facility] [place] [facility] ID Date Data Source [id number] 04/18/2021 09:52:51 AM EDT [facility] [place] [facility] Name Value Range Interpretation Code Description Data Romi rce(s) Supporting Document(s) POC NOVA GLU 129 mg/dL (70-99) H [facility] [place] [facility] [place] [facility] ID Date Data Source [id number] 04/18/2021 11:32:10 AM EDT [facility] [place] [facility] Name Value Range Interpretation Code Description Data Romi rce(s) Supporting Document(s) MAGNESIUM 2.5 mg/dL (1.7-2.4) H [facility] [place] [facility] ID Date Data Source [id number] 04/18/2021 11:32:10 AM EDT [facility] [place] [facility] Name Value Range Interpretation Code Description Data Romi rce(s) Supporting Document(s) POTASSIUM 4.8 mmol/L (3.6-5.2) [facility] [place] [facility] ID Date Data Source [id number] 04/18/2021 06:12:19 AM EDT [facility] [place] [facility] Name Value Range Interpretation Code Description Data Romi rce(s) Supporting Document(s) POC NOVA GLU 152 mg/dL (70-99) H [facility] [place] [facility] [place] [facility] ID Date Data Source [id number] 04/18/2021 03:08:33 AM EDT [facility] [place] [facility] Name Value Range Interpretation Code Description Data Romi rce(s) Supporting Document(s) POC NOVA GLU 139 mg/dL (70-99) H [facility] [place] [facility] [place] [facility] ID Date Data Source [id number] 04/18/2021 04:50:13 AM EDT [facility] [place] [facility] Name Value Range Interpretation Code Description Data Romi rce(s) Supporting Document(s) CALCIUM IONIZED 4.84 mg/dL (4.64-5.28) [facility] IONIZED CALCIUM NORMALIZED TO PH 7.40 AN D 37 DEGREES C. ID Date Data Source [id number] 04/18/2021 04:44:33 AM EDT [facility] [place] [facility] Name Value Range Interpretation Code Description Data Romi rce(s) Supporting Document(s) SODIUM 137 mmol/L (136-145) [facility] [place] [facility] POTASSIUM 4.1 mmol/L (3.6-5.2) [facility] [place] [facility] CHLORIDE 105 mmol/L (100-108) [facility] [place] [facility] CO2 24 mmol/L (22-31) [facility] [place] [facility] ANION GAP 8 mmol/L (7-16) [facility] [place] [facility] UREA NITROGEN 14 mg/dL (7-24) [facility] [place] [facility] CREATININE 0.84 mg/dL (0.80-1.30) [facility] [place] [facility] BUN/CREAT RATIO 16.7 RATIO (10.0-20.0) [facility] GLUCOSE 121 mg/dL (70-99) H [facility] [place] [facility] CALCIUM 7.9 mg/dL (8.4-10.2) L [facility] [place] [facility] GFR >60 ml/min/1.73m2 (>59) [facility] [place] [facility] GFR ( AMER) >60 ml/min/1.73m2 (>59) [facility] [place] [facility] GFR INTERPRETATION [facility] --NORMAL KIDNEY FUNCTION OR MILD DISEASE - GFR >OR= 60CHRONIC KIDNEY DISEASE - GFR 15 - 59RENAL FAILURE - GFR <15 Est. GFR calculation based on the MDRDstudy equation, which assumes a steadystate for creatinine. Est. GFR should notbe used for medication dosing. ID Date Data Source [id number] 04/18/2021 04:44:33 AM EDT [facility] [place] [facility] Name Value Range Interpretation Code Description Data Romi rce(s) Supporting Document(s) MAGNESIUM 2.0 mg/dL (1.7-2.4) [facility] [place] [facility] ID Date Data Source [id number] 04/18/2021 04:13:28 AM EDT [facility] [place] [facility] Name Value Range Interpretation Code Description Data Romi rce(s) Supporting Document(s) PT 12.1 s (9.2-11.9) H [facility] [place] [facility] INR 1.16 [facility] [place] [facility] SUGGESTED THERAPEUTIC RANGES USING INR F ORSTABILIZED ANTICOAGULATED PATIENTS:STANDARD DOSE THERAPY INR 2.0-3.0 DVT, PE, PREVENT DVT OR EMBOLISMHIGH DOSE THERAPY INR 2.5-3.5 PREVENT EMBOLISM FROM MECHANICAL HEART VALVE ID Date Data Source [id number] 04/18/2021 04:10:04 AM EDT [facility] [place] [facility] Name Value Range Interpretation Code Description Data Romi rce(s) Supporting Document(s) WBC 8.1 10*3/uL (4.1-11.0) [facility] [place] [facility] [place] RBC 3.49 10*6/uL (4.60-6.10) L [facility] [place] [facility] HGB 10.5 g/dL (13.5-18.0) L [facility] [place] [facility] HCT 32.0 % (41.0-53.0) L [facility] [place] [facility] MCV 91.5 fL (80.0-95.0) [facility] [place] [facility] MCH 30.1 pg (27.0-32.0) [facility] [place] [facility] MCHC 32.9 g/dL (32.0-36.0) [facility] [place] [facility] RDW 15.9 % (10.5-14.5) H [facility] [place] [facility] PLT 130 10*3/uL (150-450) L [facility] [place] [facility] MPV 8.6 fL (7.1-10.7) [facility] [place] [facility] ID Date Data Source [id number] 04/18/2021 12:30:41 AM EDT [facility] [place] [facility] Name Value Range Interpretation Code Description Data Romi rce(s) Supporting Document(s) POC NOVA GLU 130 mg/dL (70-99) H [facility] [place] [facility] [place] [facility] ID Date Data Source [id number] 04/17/2021 10:03:38 PM EDT [facility] Name Value Range Interpretation Code Description Data Romi rce(s) Supporting Document(s) POC NOVA GLU 122 mg/dL (70-99) H [facility]IN[facility] STAFF ID Date Data Source [id number] 04/17/2021 10:32:33 PM EDT [facility] Name Value Range Interpretation Code Description Data Romi rce(s) Supporting Document(s) POTASSIUM 3.9 mmol/L (3.6-5.2) [facility] ID Date Data Source [id number] 04/17/2021 10:20:50 PM EDT [facility] Name Value Range Interpretation Code Description Data Romi rce(s) Supporting Document(s) WBC 7.3 10*3/uL (4.1-11.0) [facility] RBC 3.51 10*6/uL (4.60-6.10) L [facility] HGB 10.5 g/dL (13.5-18.0) L [facility] HCT 32.4 % (41.0-53.0) L [facility] MCV 92.3 fL (80.0-95.0) [facility] MCH 29.9 pg (27.0-32.0) [facility] MCHC 32.4 g/dL (32.0-36.0) [facility] RDW 16.0 % (10.5-14.5) H [facility] PLT 134 10*3/uL (150-450) L [facility] MPV 8.7 fL (7.1-10.7) [facility] ID Date Data Source [id number] 04/17/2021 07:58:36 PM EDT [facility] Name Value Range Interpretation Code Description Data Romi rce(s) Supporting Document(s) POC NOVA GLU 133 mg/dL (70-99) H [facility] [place] [facility] [place] [facility] CLINICAL STAFF ID Date Data Source [id number] 04/17/2021 05:59:37 PM EDT [facility] [place] [facility] Name Value Range Interpretation Code Description Data Romi rce(s) Supporting Document(s) POC NOVA GLU 136 mg/dL (70-99) [facility] [place] [facility] [place] [facility] CLINICAL STAFF ID Date Data Source [id number] 04/17/2021 05:28:31 PM EDT [facility] [place] [facility] Name Value Range Interpretation Code Description Data Romi rce(s) Supporting Document(s) POC SOURCE [facility] [place] [facility] PUNCTURE SITE [facility] [place] [facility] O2 THERAPY [facility] [place] [facility] POC FIO2 40 [facility] [place] [facility] KB TEST [facility] [place] [facility] MODE [facility] [place] [facility] PEEP/MAP 8 CM H2O [facility] [place] [facility] PRESSURE SUPPORT 8 CM H2O [facility] [place] [facility] SP RATE 17 BMP [facility] [place] [facility] POC PH 7.37 pH (7.35-7.45) [facility] [place] [facility] POC PCO2 40.3 MMHG (32.0-48.0) [facility] [place] [facility] POC PO2 60 MMHG (83-108) L [facility] [place] [facility] POC SAT O2 90 % (95-99) L [facility] [place] [facility] POC BASE DEFICIT 2 MMOL/L (0-2) [facility] [place] [facility] POC HCO3 23.1 MMOL/L (21.0-29.0) [facility] [place] [facility] POC TOTAL CO2 24 MMOL/L (23.0-32.0) [facility] [place] [facility] CLINICAL STAFF ID Date Data Source [id number] 04/17/2021 04:02:12 PM EDT [facility] [place] [facility] Name Value Range Interpretation Code Description Data Romi rce(s) Supporting Document(s) POC NOVA GLU 131 mg/dL (70-99) [facility] [place] [facility] [place] [facility] CLINICAL STAFF ID Date Data Source [id number] 04/17/2021 05:41:01 PM EDT [facility] [place] [facility] Name Value Range Interpretation Code Description Data Romi rce(s) Supporting Document(s) POTASSIUM 4.6 mmol/L (3.6-5.2) [facility] [place] [facility] ID Date Data Source [id number] 04/17/2021 02:30:31 PM EDT [facility] [place] [facility] Name Value Range Interpretation Code Description Data Romi rce(s) Supporting Document(s) POC NOVA GLU 131 mg/dL (70-99) [facility] [place] [facility] [place] [facility] CLINICAL STAFF ID Date Data Source [id number] 04/17/2021 01:32:24 PM EDT [facility] [place] [facility] Name Value Range Interpretation Code Description Data Romi rce(s) Supporting Document(s) POC NOVA GLU 112 mg/dL (70-99) H [facility] [place] [facility] [place] [facility] CLINICAL STAFF ID Date Data Source [id number] 04/17/2021 12:32:32 PM EDT [facility] [place] [facility] Name Value Range Interpretation Code Description Data Romi rce(s) Supporting Document(s) POC NOVA GLU 115 mg/dL (70-99) [facility] [place] [facility] [place] [facility] CLINICAL STAFF ID Date Data Source [id number] 04/17/2021 12:03:59 PM EDT [address] [address] Name: ADRIAN SUMNERB: 1970Sex: MOrdering Provider: RON Hagenhoantonio Prov: RON LINKRefjosé antonio Provider: Procedure Performed: / XR CHEST PORTABLEExam Date: 04/17/2021 11:45MRN: [id number] Number: [id number] Class: InpatientAccount #: [id number] Exam: Evaluate for [place] Lissett catheter placement and/or endotracheal tubeTechnique: AP portable view obtained.Comparison: NoneFindings: The tip of the ET tube is 4.3 cm above the francine. The NG tube is coiled in the esophagus with its tip in the proximal esophagus. The tip of the [place]-Lissett catheter is in the proximal right pulmonary artery. Right-sided chest tubes are present. There is probable mild interstitial pulmonary edema. The lungs are otherwise clear. No pleural effusion or pneumothorax is seen. The cardiomediastinal silhouette is unremarkable.IMPRESSION: 1. NG tube is coiled in the esophagus. Repositioning is recommended.2. Appropriate positions of ET tube and [place]-Lissett catheter.3. Probable mild interstitial pulmonary edema.This finding was communicated via the departmental critical results reporting protocol.Report electronically signed by: MERCEDES PEÑA On 04/17/2021 12:03 PMWorkstation ID: [id number] Name Value Range Interpretation Code Description Data Romi rce(s) Supporting Document(s) ID Date Data Source [id number] 04/17/2021 12:03:01 PM EDT [facility] [place] [facility] Name Value Range Interpretation Code Description Data Romi rce(s) Supporting Document(s) POC SOURCE [facility] [place] [facility] CP BYPASS [facility] [place] [facility] POC MIX BARRY PO2 46 mm[Hg] (35-45) H [facility] [place] [facility] POC MIX BARRY SO2 77 % (60-80) [facility] [place] [facility] POC HCT 31 % (41.0-53.0) L [facility] [place] [facility] ID Date Data Source [id number] 04/17/2021 12:03:01 PM EDT [facility] [place] [facility] Name Value Range Interpretation Code Description Data Romi rce(s) Supporting Document(s) POC SOURCE [facility] [place] [facility] PUNCTURE SITE [facility] [place] [facility] O2 THERAPY [facility] [place] [facility] POC FIO2 80 [facility] [place] [facility] KB TEST [facility] [place] [facility] MODE [facility] [place] [facility] TIDAL VOLUME 550 mL [facility] [place] [facility] RATE 18 BPM [facility] [place] [facility] PEEP/MAP 10 CM H2O [facility] [place] [facility] PRESSURE SUPPORT 12 CM H2O [facility] [place] [facility] SP RATE 0 BMP [facility] [place] [facility] POC PH 7.33 pH (7.35-7.45) L [facility] [place] [facility] POC PCO2 51.0 MMHG (32.0-48.0) [facility] [place] [facility] POC PO2 228 MMHG (83-108) H [facility] [place] [facility] POC SAT O2 100 % (95-99) H [facility] [place] [facility] POC BASE EXCESS 0 MMOL/L (0-3) [facility] [place] [facility] POC HCO3 26.8 MMOL/L (21.0-29.0) [facility] [place] [facility] POC TOTAL CO2 28 MMOL/L (23.0-32.0) [facility] [place] [facility] [facility] CLINICAL STAFF ID Date Data Source [id number] 04/17/2021 11:30:10 AM EDT [facility] Name Value Range Interpretation Code Description Data Roim rce(s) Supporting Document(s) EKG [facility] OEREOq4mWtKHPbMre2YnQiLqHEBwZC7cgpw4I7C5wDDtO3CcoOZma6ysV5LoJ4IlKRBjMGJBSX0KcZCn jb2 [file] nOMDL3pO1M4xX1DMw4x/1L7rOTKoC8E17gJ+WPbLexxqGRo55CNqZx0y9ty+J Carlos/zJWBG508E1C5/J [file] operator [file] AwMDAwMDEyOTcgMDAwMDAgbiAKMDAwMDAwMTQwNiAw HUJkODNrQOhpAMYwKGR9LAZfXHZtLUSiXJ2oIiGyFFXwLWA0YOueGYRwMWMuqiEBUEOsTADpPRejYGKw MYDpHPMtZNinBOQqERBlNXP0CNMjRINtFV3nFnExYFZkQVGdANSiWhK4TjBjIoXCnKTloFqpfku8PKfx I6u2TLXyHFohJK6oltJfHBEqBuqoTq5znTJ3UQDdFlpMAx3Ca9CmgsR1ijUhCkQbPUu0XqwlZQJQSt== ID Date Data Source [id number] 04/17/2021 11:14:48 AM EDT [facility] Name Value Range Interpretation Code Description Data Romi rce(s) Supporting Document(s) &PDF [facility] LRIKTc7pNtMLBqRq02/WGMpaLBSdv4OdMCptBHm1TJcpCJDmZ3ZuvWbcCANTRfUdW9MSNQPaEBUmBZix pYy [file] ICAgICAgICAgICAgICAgICAgICAgICAgICAgICAgICAgICAgICAgICAgICAgICAgICAgICAgICAgICAg ICAgICAgICAgICAgDQogICAgICAgICAgICAgICAgIC AgICAgICAgICAgICAgICAgICAgICAgICAgICAgICAgICAgICAgICAgICAgICAgICAgICAgICAgICAgIC AgICAgICAgICAgICAgICAgICAgICAgDQogICAgICAgICAgICAgICAgICAgICAgICAgICAgICAgICAgIC AgICAgICAgICAgICAgICAgICAgICAgICAgICAgICAg ICAgICAgICAgICAgICAgICAgICAgICAgICAgICAgICAgDQogICAgICAgICAgICAgICAgICAgICAgICAg ICAgICAgICAgICAgICAgICAgICAgICAgICAgICAgICAgICAgICAgICAgICAgICAgICAgICAgICAgICAg ICAgICAgICAgICAgICAgDQogICAgICAgICAgICAgIC AgICAgICAgICAgICAgICAgICAgICAgICAgICAgICAgICAgICAgICAgICAgICAgICAgICAgICAgICAgIC AgICAgICAgICAgICAgICAgICAgICAgICAgDQogICAgICAgICAgICAgICAgICAgICAgICAgICAgICAgIC AgICAgICAgICAgICAgICAgICAgICAgICAgICAgICAg ICAgICAgICAgICAgICAgICAgICAgICAgICAgICAgICAgICAgDQogICAgICAgICAgICAgICAgICAgICAg ICAgICAgICAgICAgICAgICAgICAgICAgICAgICAgICAgICAgICAgICAgICAgICAgICAgICAgICAgICAg ICAgICAgICAgICAgICAgICAgDQogICAgICAgICAgIC AgICAgICAgICAgICAgICAgICAgICAgICAgICAgICAgICAgICAgICAgICAgICAgICAgICAgICAgICAgIC AgICAgICAgICAgICAgICAgICAgICAgICAgICAgDQogICAgICAgICAgICAgICAgICAgICAgICAgICAgIC AgICAgICAgICAgICAgICAgICAgICAgICAgICAgICAg ICAgICAgICAgICAgICAgICAgICAgICAgICAgICAgICAgICAgICAgDQogICAgICAgICAgICAgICAgICAg ICAgICAgICAgICAgICAgICAgICAgICAgICAgICAgICAgICAgICAgICAgICAgICAgICAgICAgICAgICAg BSRmZWYiMWUaTWVyBTUgVUNpJANlOMz3R5qfQGKwGR LvPF4gSZe1Bl3+CHyGMjSyBJO1niGshI9YFO1ua6ZpXXqdYOBww3IeJEu1ZO1IUCPeOEznLB4VBKbpok 6LLWBtIRUnoTJYr5opYfTbDXJ6OZEkGelsHB8PHJKxS2dkshUqLFUhMFLBJEheABHWISbiJNGXGS9KPz IrE5GbuF64FIYSXz0+SGscvnJaFyiYBkGrKVSwm4Wh DFn6ER6ZZFOpVEsaSC5EAREofI1wMAcrWH1BRxBfMXOaBRRGRqXxT34jsTOdZBu4O9LhFgVwRATtUzha ZXMgPDwvTmFtZXMgWyBdDQogID4+ID4+WTnqQF1PEUigpmJmXSJaSb2RHSUzISS1XPFbvZIwJoIzAZYJ TAktDV8HkCXoIJF2cX0uPZvmWUVhQRYjG4zBSsFilV mgQI32tCxfejIpsESgEGl+Ij9WAR1ox3LfGNt7snGyIFjtXPP5COafAQYqHCFwNAGgHJG0JDD3FNHNWz WcHXHbQIOdAXokFLDpSCStwi9YRJUvJTWhVJA8VZNsAYIiKFIkHYkiFFXdCKAuVaO4MQUxUSXoMR7VVg BuRXKxKVKwQXjmRNAxYCEcoa9AUQNwEVQtMtRqLAJp UODhRFLnKAtgYGAuUOQlEwEgTOUwKXXmZS7WEiGlFKVkNEIfETqdVPLwTJElbe8TNZWlGFNcPmW6DVJf CVFiTWCeGMigAJOeJBD4JOL8TFBtMVUdIY4HVdKlWMOtUWikQvRtRDKbZIXbwg0ZSSGyBVLkQFTdVEXd ADBsYFXyVMkkJSPvHOM8NgK9XQLiRXYxRL7AEyEpBX DdUEd0CIRyHIVmPWHloh0OWVXxMMIwADK0NHQwOVCnQMTdPJzyHFPnKJW1ZIFaAVAqFMWoRR4NTkAzRJ AzCAt7WPjwKYUxXOSaez4SFEGxFAFvHZisWfBhSIVzHIRhEJriBIUaQUJzQFS9UBNsQEEiCG0UJjVnNT JnZKXyYJXrNZNdEUMssh2ROHOhLKDqAyV5FpWqJRLm BJVnJUqaUDWvWHUkZNQsZCBsAEMaTW8HFzGbNWHyOvY7SyOfWKKnDDOqzs5BXOWeSEClKtBgUPXhGQQb ATUoZMp8rpDgaKFeDTs1YS4MN0MftuOqUzUOKy8Ej689EBMxTOTuLs8LW2jpSd2aZLOwEYKTWe0SNQy5 IoFaWEk6MRG7KUT6TTJrLFc9JBB8UiIuT3T3LBS0Hw I+CYo5AOIeHxR6FUG7EfCgVNA9QCxmKHyuFAP1Mpf5BxNyTt9iVNPTXh8+DQpzdGFydHhyZWYNCjIyNj TbEToaPXDYUs4F ID Date Data Source [id number] 04/17/2021 11:20:26 AM EDT [facility] [place] [facility] Name Value Range Interpretation Code Description Data Romi rce(s) Supporting Document(s) POC NOVA GLU 73 mg/dL (70-99) [facility] [place] [facility] [place] [facility] CLINICAL STAFF ID Date Data Source [id number] 04/17/2021 12:39:18 PM EDT [facility] [place] [facility] Name Value Range Interpretation Code Description Data Romi rce(s) Supporting Document(s) MAGNESIUM 3.8 mg/dL (1.7-2.4) H [facility] [place] [facility] ID Date Data Source [id number] 04/17/2021 12:39:18 PM EDT [facility] [place] [facility] Name Value Range Interpretation Code Description Data Romi rce(s) Supporting Document(s) SODIUM 143 mmol/L (136-145) [facility] [place] [facility] POTASSIUM 4.4 mmol/L (3.6-5.2) [facility] [place] [facility] CHLORIDE 111 mmol/L (100-108) H [facility] [place] [facility] CO2 28 mmol/L (22-31) [facility] [place] [facility] ANION GAP 4 mmol/L (7-16) L [facility] [place] [facility] UREA NITROGEN 16 mg/dL (7-24) [facility] [place] [facility] CREATININE 1.20 mg/dL (0.80-1.30) [facility] [place] [facility] BUN/CREAT RATIO 13.3 RATIO (10.0-20.0) [facility] [place] [facility] GLUCOSE 66 mg/dL (70-99) L [facility] [place] [facility] CALCIUM 9.2 mg/dL (8.4-10.2) [facility] [place] [facility] GFR >60 ml/min/1.73m2 (>59) [facility] [place] [facility] GFR ( AMER) >60 ml/min/1.73m2 (>59) [facility] [place] [facility] GFR INTERPRETATION [facility] --NORMAL KIDNEY FUNCTION OR MILD DISEASE - GFR >OR= 60CHRONIC KIDNEY DISEASE - GFR 15 - 59RENAL FAILURE - GFR <15 Est. GFR calculation based on the MDRDstudy equation, which assumes a steadystate for creatinine. Est. GFR should notbe used for medication dosing. ID Date Data Source [id number] 04/17/2021 12:27:17 PM EDT [facility] [place] [facility] Name Value Range Interpretation Code Description Data Romi rce(s) Supporting Document(s) CALCIUM IONIZED 5.48 mg/dL (4.64-5.28) H [facility] [place] IONIZED CALCIUM NORMALIZED TO PH 7.40 AN D 37 DEGREES C. ID Date Data Source [id number] 04/17/2021 12:17:31 PM EDT [facility] [place] [facility] Name Value Range Interpretation Code Description Data Romi rce(s) Supporting Document(s) WBC 6.1 10*3/uL (4.1-11.0) [facility] [place] [facility] [place] RBC 3.03 10*6/uL (4.60-6.10) L [facility] [place] [facility] HGB 9.1 g/dL (13.5-18.0) L [facility] [place] [facility] HCT 27.6 % (41.0-53.0) L [facility] [place] [facility] MCV 91.0 fL (80.0-95.0) [facility] [place] [facility] MCH 29.9 pg (27.0-32.0) [facility] [place] [facility] MCHC 32.9 g/dL (32.0-36.0) [facility] [place] [facility] RDW 15.6 % (10.5-14.5) [facility] [place] [facility] PLT 122 10*3/uL (150-450) L [facility] [place] [facility] MPV 8.4 fL (7.1-10.7) [facility] [place] [facility] ID Date Data Source [id number] 04/17/2021 10:42:31 AM EDT [facility] [place] [facility] Name Value Range Interpretation Code Description Data Romi rce(s) Supporting Document(s) POC SOURCE [facility] [place] [facility] CP BYPASS [facility] [place] [facility] POC PH 7.19 pH (7.35-7.45) L [facility] [place] [facility] POC PCO2 64.2 MMHG (32.0-48.0) [facility] [place] [facility] POC PO2 99 MMHG (83-108) [facility] [place] [facility] POC SAT O2 96 % (95-99) [facility] [place] [facility] POC BASE DEFICIT 4 MMOL/L (0-2) H [facility] [place] [facility] POC HCO3 24.4 MMOL/L (21.0-29.0) [facility] [place] [facility] POC TOTAL CO2 26 MMOL/L (23.0-32.0) [facility] [place] [facility] CLINICAL STAFF POC HCT 29 % (41.0-53.0) L [facility] [place] [facility] POC SODIUM 139 MMOL/L (136-145) [facility] [place] [facility] POC POTASSIUM 4.1 MMOL/L (3.6-5.2) [facility] [place] [facility] POC IONIZED CALCIUM 6.3 MG/DL (4.6-5.3) H [facility] POC GLU 85 MG/DL (70-99) [facility] [place] [facility] [place] [facility] ID Date Data Source [id number] 04/17/2021 10:42:26 AM EDT [facility] [place] [facility] Name Value Range Interpretation Code Description Data Romi rce(s) Supporting Document(s) POC ACT 109 s (80-140) [facility] [place] [facility] CLINICAL STAFF ID Date Data Source [id number] 04/17/2021 12:24:25 PM EDT [facility] [place] [facility] Name Value Range Interpretation Code Description Data Romi rce(s) Supporting Document(s) APTT 24.1 s (22.0-34.3) [facility] [place] [facility] ID Date Data Source [id number] 04/17/2021 12:24:25 PM EDT [facility] [place] [facility] Name Value Range Interpretation Code Description Data Romi rce(s) Supporting Document(s) PT 13.0 s (9.2-11.9) H [facility] [place] [facility] INR 1.25 [facility] [place] [facility] SUGGESTED THERAPEUTIC RANGES USING INR F ORSTABILIZED ANTICOAGULATED PATIENTS:STANDARD DOSE THERAPY INR 2.0-3.0 DVT, PE, PREVENT DVT OR EMBOLISMHIGH DOSE THERAPY INR 2.5-3.5 PREVENT EMBOLISM FROM MECHANICAL HEART VALVE ID Date Data Source [id number] 04/17/2021 09:54:59 AM EDT [facility] [place] [facility] INFORMATIONPatient MRN Name Date of Age Gend*PT [id number] Adrian Andrews 1970 50 years M SDAPT Location Admission Date/Time Visit ID Attending Provider --- --- --- --- EPI ID CSN Admitting Provider [id number] ---AirwayPatient location during procedure: ORUrgency: electiveDifficult airway: [...] rce(s) Supporting Document(s) ID Date Data Source [id number] 04/17/2021 09:49:33 AM EDT [facility] [place] [facility] Name Value Range Interpretation Code Description Data Romi rce(s) Supporting Document(s) POC SOURCE [facility] [place] [facility] CP BYPASS [facility] [place] [facility] POC PH 7.29 pH (7.35-7.45) L [facility] [place] [facility] POC PCO2 48.7 MMHG (32.0-48.0) H [facility] [place] [facility] POC PO2 306 MMHG (83-108) H [facility] [place] [facility] POC SAT O2 100 % (95-99) H [facility] [place] [facility] POC BASE DEFICIT 3 MMOL/L (0-2) H [facility] [place] [facility] POC HCO3 23.2 MMOL/L (21.0-29.0) [facility] [place] [facility] POC TOTAL CO2 25 MMOL/L (23.0-32.0) [facility] [place] [facility] CLINICAL STAFF POC HCT 26 % (41.0-53.0) L [facility] [place] [facility] POC SODIUM 134 MMOL/L (136-145) L [facility] [place] [facility] POC POTASSIUM 5.0 MMOL/L (3.6-5.2) [facility] [place] [facility] POC IONIZED CALCIUM 5.0 MG/DL (4.6-5.3) [facility] POC GLU 164 MG/DL (70-99) H [facility] [place] [facility] [place] [facility] ID Date Data Source [id number] 04/17/2021 09:49:28 AM EDT [facility] [place] [facility] Name Value Range Interpretation Code Description Data Romi rce(s) Supporting Document(s) POC SOURCE [facility] [place] [facility] CP BYPASS [facility] [place] [facility] POC VENOUS PH 7.25 pH (7.33-7.43) L [facility] [place] [facility] POC VENOUS PCO2 51.9 MM HG (38.0-50.0) H [facility] POC [facility] PO2 49 MM HG (30-50) [facility] [place] [facility] POC VENOUS SO2 77 % (60-85) [facility] [place] [facility] POC VENOUS BASE DEFICIT 4 MMOL/L (0-2) H [facility] POC VENOUS HCO3 23.0 MMOL/L (23.0-27.0) [facility] POC [facility]EN[facility] TOTAL CO2 25 MMOL/L (24-28) [facility] CLINICAL STAFF POC HCT 26 % (41.0-53.0) L [facility] [place] [facility] POC SODIUM 133 MMOL/L (136-145) L [facility] [place] [facility] POC POTASSIUM 5.0 MMOL/L (3.6-5.2) [facility] [place] [facility] POC IONIZED CALCIUM 5.1 MG/DL (4.6-5.3) [facility] POC GLU 162 MG/DL (70-99) H [facility] [place] [facility] [place] [facility] ID Date Data Source [id number] 04/17/2021 09:49:23 AM EDT [facility] [place] [facility] Name Value Range Interpretation Code Description Data Romi rce(s) Supporting Document(s) POC ACT 450 s (80-140) H [facility] [place] [facility] CLINICAL STAFF ID Date Data Source [id number] 04/17/2021 09:16:57 AM EDT [facility] [place] [facility] Name Value Range Interpretation Code Description Data Romi rce(s) Supporting Document(s) POC SOURCE [facility] [place] [facility] CP BYPASS [facility] [place] [facility] POC VENOUS PH 7.27 pH (7.33-7.43) L [facility] [place] [facility] POC VENOUS PCO2 43.6 MM HG (38.0-50.0) [facility] POC [facility]ENOUS PO2 50 MM HG (30-50) [facility] [place] [facility] POC VENOUS SO2 80 % (60-85) [facility] [place] [facility] POC VENOUS BASE DEFICIT 7 MMOL/L (0-2) H [facility] POC VENOUS HCO3 19.8 MMOL/L (23.0-27.0) L [facility] POC [facility]EN[facility] TOTAL CO2 21 MMOL/L (24-28) L [facility] CLINICAL STAFF POC HCT 22 % (41.0-53.0) L [facility] [place] [facility] POC SODIUM 134 MMOL/L (136-145) L [facility] [place] [facility] POC POTASSIUM 5.4 MMOL/L (3.6-5.2) H [facility] [place] [facility] POC IONIZED CALCIUM 4.8 MG/DL (4.6-5.3) [facility] POC GLU 132 MG/DL (70-99) H [facility] [place] [facility] [place] [facility] ID Date Data Source [id number] 04/17/2021 09:23:22 AM EDT [facility] [place] [facility] Name Value Range Interpretation Code Description Data Romi rce(s) Supporting Document(s) POC ACT 521 s (80-140) H [facility] [place] [facility] CLINICAL STAFF ID Date Data Source [id number] 04/17/2021 08:50:23 AM EDT [facility] [place] [facility] Name Value Range Interpretation Code Description Data Romi rce(s) Supporting Document(s) POC SOURCE [facility] [place] [facility] CP BYPASS [facility] [place] [facility] POC PH 7.23 pH (7.35-7.45) L [facility] [place] [facility] POC PCO2 54.0 MMHG (32.0-48.0) H [facility] [place] [facility] POC PO2 354 MMHG (83-108) H [facility] [place] [facility] POC SAT O2 100 % (95-99) H [facility] [place] [facility] POC BASE DEFICIT 5 MMOL/L (0-2) H [facility] [place] [facility] POC HCO3 22.5 MMOL/L (21.0-29.0) [facility] [place] [facility] POC TOTAL CO2 24 MMOL/L (23.0-32.0) [facility] [place] [facility] CLINICAL STAFF POC HCT 32 % (41.0-53.0) L [facility] [place] [facility] POC SODIUM 139 MMOL/L (136-145) [facility] [place] [facility] POC POTASSIUM 4.3 MMOL/L (3.6-5.2) [facility] [place] [facility] POC IONIZED CALCIUM 5.7 MG/DL (4.6-5.3) H [facility] POC GLU 114 MG/DL (70-99) H [facility] [place] [facility] [place] [facility] ID Date Data Source [id number] 04/17/2021 09:06:52 AM EDT [facility] [place] [facility] Name Value Range Interpretation Code Description Data Romi rce(s) Supporting Document(s) POC ACT 555 s (80-140) H [facility] [place] [facility] CLINICAL STAFF ID Date Data Source [id number] 04/21/2021 05:07:45 PM EDT [facility] [place] [facility] [place], [place] [address]Tel# Surgical Pathology ReportPatient Name: ADRIAN ANDREWS: 1970Accession #:[id number](s) ReceivedA: Mitral valve leafletsClinical Diagnosis and HistoryRheumatic [...] myxoid change. No calcifications orvegetations are identified. [employer] sections are submitted as [id number] Reported: 2020Electronically Signed Out By Miller Lloyd MD [facility] [place] [address] [id number] component performed at [facility], Histopathology, [address] [place] [address], [phone].Reported at [facility], [address] [place] [address], [phone]. This report may includeimmunohistochemical or in-situ hybridization results. Testing wasdeveloped and the performance characteristics determined by [facility] as required by CLIA '88. The FDA hasdetermined that approval for specific use is not necessary for clinicaluse. The quality of Hematoxylin and Eosin stains and as applicable, forall immunohistochemical and/or special stains, including positive andnegative controls, were reviewed and considered appropriate.ICD codes I05.2CPT codesA: 96311Y Name Value Range Interpretation Code Description Data [facility] Supporting Document(s) ID Date Data Source [id number] 04/17/2021 07:55:57 AM EDT Lab [facility] Name Value Range Interpretation Code Description Data [facility](s) Supporting Document(s) POC SOURCE [facility] [place] [facility] CP BYPASS [facility] [place] [facility] POC PH 7.27 pH (7.35-7.45) L [facility] [place] [facility] POC PCO2 44.8 MMHG (32.0-48.0) [facility] [place] [facility] POC PO2 442 MMHG (83-108) H [facility] [place] [facility] POC SAT O2 100 % (95-99) H [facility] [place] [facility] POC BASE DEFICIT 6 MMOL/L (0-2) H [facility] [place] [facility] POC HCO3 20.6 MMOL/L (21.0-29.0) L [facility] [place] [facility] POC TOTAL CO2 22 MMOL/L (23.0-32.0) L [facility] [place] [facility] CLINICAL STAFF POC HCT 33 % (41.0-53.0) L [facility] [place] [facility] POC SODIUM 139 MMOL/L (136-145) [facility] [place] [facility] POTASSIUM 4.1 MMOL/L (3.6-5.2) [facility] [place] [facility] P[facility] IONIZED CALCIUM 4.9 MG/DL (4.6-5.3) [facility] P[facility] GLU 92 MG/DL (70-99) [facility] [place] [facility] [place] [facility] ID Date Data Source [id number] 04/17/2021 07:55:52 AM EDT [facility] [place] [facility] Name Value Range Interpretation Code Description Data Romi rce(s) Supporting Document(s) POC ACT 136 s (80-140) [facility] [place] [facility] CLIN[facility] STAFF ID Date Data Source [id number] 04/17/2021 07:18:08 AM [facility]T [facility] [place] INFORMATIONPatient MRN Name Date of Age Gend*PT [id number] Adrian Andrews 1970 50 years M SDAPT Location Admission Date/Time Visit ID [facility] 0518 --- Chandler Corrigan MD([id number]) EPI ID CSN Admitting Provider [id number] Chandler Corrigan MD([id number])H&P reviewed. No changes Name Value Range Interpretation Code Description Data Romi rce(s) Supporting Document(s) ID Date Data Source [id number] 04/17/2021 06:32:20 AM EDT [facility] [place] [facility] Name Value Range Interpretation Code Description Data Romi rce(s) Supporting Document(s) POC NOVA GLU 94 mg/dL (70-99) [facility] [place] [facility] ID Date Data Source [id number] 04/17/2021 12:29:33 PM EDT [facility] [place] [facility] GARCIA SPEC EXP DATE 04/18/2021TEST ING SITE PERFORMED AT [address] [place] [id number] NUMBER [id number] COMPONENT TYPE LEUKOPOOR RED CELLSUNIT DIVISION 00STATUS OF UNIT REL FROM ALLOCTRANSFUSION STATUS OK TO TRANSFUSECROSSMATCH RESULT COMPATIBLEUNIT NUMBER [id number] COMPONENT TYPE LEUKOPOOR RED CELLSUNIT DIVISION 00STATUS OF UNIT REL FROM ALLOCTRANSFUSION STATUS OK TO TRANSFUSECROSSMATCH RESULT COMPATIBLE Name Value Range Interpretation Code Description Data Romi rce(s) Supporting Document(s) TRANSFUSE RED CELLS [facility] TESTING SITE PERFORMED AT [address] [place] [id number] ID Date Data Source [id number] 04/16/2021 09:44:31 AM EDT [facility] NT INFORMATIONPatient MRN Name Date of Age Gend*PT [id number] Adrian Andrews 1970 50 years M OPPT Location Admission Date/Time Visit ID Attending Provider --- --- --- Chandler Corrigan MD([id number]) EPI ID CSN Admitting Provider [id number] ---Addended by: JIA MCKEON on: 04/16/2021 09:44 AM Modules accepted: Orders Name Value Range Interpretation Code Description Data Romi rce(s) Supporting Document(s) ID Date Data Source [id number] 04/14/2021 11:55:35 AM EDT [facility] NT INFORMATIONPatient MRN Name Date of Age Gend*PT [id number] Adrian Andrews 1970 50 years M OPPT Location Admission Date/Time Visit ID Attending Provider --- --- --- Chandler Corrigan MD([id number]) EPI ID CSN Admitting Provider [id number] ---HISTORY PHYSICALName: Adrian Andrews : 1970 Sex: male Care Provider[facility] Physician: Dr. CorriganInformant: The patient [...] mean transmitral gradient is 7 and peak mhrucrsx34 mmHg corresponding to moderate mitral stenosis. 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 Roland, [facility] HospitalERGIES:AllergiesAllergen Reactions Codeine RashMEDICATIONS:Prior to Admission medicationsMedication [...] warm and dry.HEENT: He is normocephalic, atraumatic. [place] conjunctivae. Anicteric sclerae.Pupils are equal, round, reactive [...] Clear to auscultation. 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 No murmur appreciated on exam. Right carotidbruit.ABDOMEN: Bowel sounds positive times four. Soft, non tender. No reboundtenderness. No hepatosplenomegaly. Negative CVAT.GENITAL/RECTAL: Deferred.MUSCLE/SKELETAL: Strength is 5/5. Mechanical Energy Engineer are equal. Limited range of motion ofleft shoulder.NEUROLOGICALLY: Cranial nerves II through XII are grossly intact.VASCULAR: Pulses are symmetrical. Trace edema.Anesthesia complications: DeniesSteroid use: He denies any oral steroid therapy for three weeks or greaterwithin the last 3 months.[facility] Frailty Scale :: 5/10 Mildly Frail (more [...] Cigarettes Smoking cessation information givento patient including [facility] quit line. Nicotine replacement products ifindicated by the attending6. Complex regional pain syndromeBased on above medical co morbidities, length of stay may be prolonged greaterthan previously anticipated.ALLERGIES:Codeine04/14/2021 11:55 Redd Mckeon NP*This document or parts of this document, were dictated using DecisionView software. A reasonable attempt at proofreading has beenmade to minimize errors. Please call with any questions or corrections. Name Value Range Interpretation Code Description Data Romi rce(s) Supporting Document(s) ID Date Data Source [id number] 04/14/2021 10:27:00 AM EDT [facility]TR [facility] CAROTID DUPLEXCLINICAL HISTORY: Pretesting. Repair [...] rce(s) Supporting Document(s) ID Date Data Source [id number] 04/14/2021 10:20:00 AM EDT [facility] HEST WO IV CONTRASTCLINICAL HISTORY: [...] which is not fully included in the turxh-jj-teas, the largest measuring 3 mm.IMPRESSION:1. Mild emphysema. No acute pulmonary abnormality.2. Several mildly prominent mediastinal lymph nodes measuring up to 12 mm in short axis, favored to be reactive. Consider follow-up CT in 3 months.3. At least 3 small calculi in the right kidney, not fully included in the ilelb-ly-pcaq.Dictated by: MERCEDES PEÑA on 04/14/2021lectronically Signed by: MERCEDES PEÑA on 04/14/2021 01:56 PMTranscribed by: kulwinder on 04/14/2021 01:56 PMCDS G code: ,CDS Modifier: ,cc: Name Value Range Interpretation Code Description Data Romi rce(s) Supporting Document(s) ID Date Data Source [id number] 04/14/2021 10:19:01 AM EDT [facility] Name Value Range Interpretation Code Description Data Romi rce(s) Supporting Document(s) EKG [facility] ILBVHt6cFzLBDjPjx4VxIlVpGOYtHU7hckh1Z1F3qVXwC6TgzCVry4ecH4KuO9LtOFQlWAGVZD7ZcBCt jb2 [file] qBuZLNVkqSZLNVmqydJMlmayNJOlmSzNZGkmSzNZms bEJORatbNYbMdt0SMxElj7IHg5F9ba/0aKxGeb1jE+NzdMi8YdBEe8dGFzKFvWk5v81AX4Vp5DAwCba3 U504P5KdRxHOFJjCTxugHMadbpfUzCKUxahsUPhvpsE3FLwjFhgCSFcVCf3lJrfIo96hX9MgIYk+plWb 9yl3ua3fXvCixWy+dxvsu3j42r53EVPgt4Kvzi2zxg u1SSzYqCQqjENKXA+G5R2pb36G/EYMCiAZAcZKuvZpzF9lLvgNyPkc5hlLxbTuomuuA/vkMuV/OrPeRy vZsyH76T4nLN3NosxYwXwWWbLezvrJ1N2UUm+2XyFpix3aqU39If2iq+Ln2EG4qOWtJswWq/jYNBAspg 1LKmNX3eASccbnFSGfjlVlyYwixMKrscPt9imhqWR2 4yfj11hxibCflO8abEvVffhowfwpeIVO5kETrdo2begimT0+dLl++Uq+syY4Utyt/xdOeRZahVUu/K9e 5EiYzS6W14i/SuelbwezSuq+t8i7n+K6icqn1LxTEVU1h9AJqJta6nS5zPtf0cYcCj4Y6ZYOjTn3C0KC J1nTO/say/cIA4aLxRoVRGXS3wZfGIgt02iXLHLyod /7genk36EWiIxBfMSV7Kf6inA+ug5ZD6ViSuKf5wEI/4A4jv7fSOjyZrtFiXYzrhMWJAdR8U29tT+J2O Bu9W868JPfSQMO05Eoeon1U0ih1fyH4xhbmj3n0bQi0N5nrL3RY3T4o1AgoCy1Pz7soJve4kvwLHMDao N8z1qeL0dKyR7jZHiMa8oQXOLk6PjFqIJ+f8KDq/сергей [file] 5PHl/HixQc0B4Dk5spH4FV6aM+BDcMivo3KT1aE+Сергей [file] biAKMDAwMDAwMDUyMyAwMDAwMCBuIAowMDAwMDAwNj RgXXRwULBlLO2aYwStOZRaJGC4GOYjHUCeRWKojnVTAGOtZMZaSYl3XVJpDZRfWPYxGXucIHPmUREkJE W7VJOnCLMxGT3xEsVsLXHjQXIvBJQoVWLsVRQhbwZIGKUjFBFeDRG6SRHsLPVzMIPtSUwkDXSyGJGjOp q3JEAjWUDkKB3fTbCfCLGjTDY7ODZmFVRxFTYcpuPH NLYrNQN8Zok6XqGmCRKaVPCqSIcoRFPdLXQiThO1CSSpKEAlCT9eXiWgBDCeNGF5SxRkMADeVXWndnWZ IPWjGFDiHWU7KcDwDIVhEVDqLRuoBXFzAHJcSSOjUKV4FVC1VHRtLbUhYPrtKWPBEVqUN7IbesUoLpDU K3coPz9cNsYtXGLZQ6Wjn1QbDIXsBLXQNa5+CxO2RMJ6uJRsBke1IcRsWyjpZIIYQc== ID Date Data Source [id number] 04/15/2021 11:05:37 AM EDT [facility] [place] [facility] SPECIMEN DESCRIPTION URINE, COLLE CTION METHOD NOT SPECIFIEDCULTURE RESULTS NO GROWTHREPORT STATUS FINAL 04/15/2021 Name Value Range Interpretation Code Description Data Romi rce(s) Supporting Document(s) ID Date Data Source [id number] 04/14/2021 12:33:31 PM EDT [facility] [place] [facility] Name Value Range Interpretation Code Description Data Romi rce(s) Supporting Document(s) COLOR [facility] [place] [facility] APPEARANCE [facility] [place] [facility] SPEC GRAV URINE 1.020 (1.003-1.030) [facility] PH URINE 6.0 (5.0-7.5) [facility] [place] [facility] LEUK ESTERASE (NEG) [facility] [place] [facility] NITRITE URINE (NEG) [facility] [place] [facility] PROTEIN URINE (NEG) [facility] [place] [facility] GLUCOSE URINE (NEG) [facility] [place] [facility] KETONE URINE (NEG) [facility] [place] [facility] ZAFAR UROBILINOGEN 0.2 mg/dL (0-1.0) [facility] [place] [facility] BILIRUBIN URINE (NEG) [facility] [place] [facility] BLOOD/HGB URINE (NEG) [facility] [place] [facility] ID Date Data Source [id number] 04/14/2021 10:42:38 PM EDT [facility] [place] [facility] Name Value Range Interpretation Code Description Data Romi rce(s) Supporting Document(s) ROOM TEMP AB SCREEN [facility] ROOM TEMP AB SCREEN NEGATIVE ID Date Data Source [id number] 04/14/2021 09:03:24 PM EDT [facility] [place] [facility] SPEC EXP DATE 1PATI ENT ABO/Rh O NEGATIVEANTIBODY SCREEN NEGATIVETESTING SITE PERFORMED AT [address] [place] [id number] Name Value Range Interpretation Code Description Data Romi rce(s) Supporting Document(s) TYPE AND SCREEN [facility] [place] [facility] ANTIBODY SCREEN NEGATIVE ID Date Data Source [id number] 04/14/2021 12:52:19 PM EDT [facility] [place] [facility] Name Value Range Interpretation Code Description Data Romi rce(s) Supporting Document(s) HEMOGLOBIN A1C @ 5.3 % (4.0-6.0) [facility] [place] sunny GARCIA Performed using Siemens [place] immunoassa y.Care must be taken when interpreting YfJ0mdyplnnl in patients with a hemoglobin variantor decreased erythrocyte lifespan. Values 5.7 - 6.4% suggest prediabetes.Values >=6.5% are diagnostic for diabetes.REFERENCE: DIABETES CARE 2018: 41(S13-S27). EST AVERAGE GLUCOSE 105 mg/dL [facility] ID Date Data Source [id number] 04/14/2021 12:48:58 PM EDT [facility] [place] [facility] Name Value Range Interpretation Code Description Data Romi rce(s) Supporting Document(s) NT PRO BNP 1465 pg/mL (0-125) H [facility] [place] [facility] RIC Y ID Date Data Source [id number] 04/14/2021 12:48:58 PM EDT [facility] [place] [facility] Name Value Range Interpretation Code Description Data Romi rce(s) Supporting Document(s) SODIUM 139 mmol/L (136-145) [facility] [place] [facility] POTASSIUM 4.7 mmol/L (3.6-5.2) [facility] [place] [facility] CHLORIDE 112 mmol/L (100-108) H [facility] [place] [facility] CO2 19 mmol/L (22-31) L [facility] [place] [facility] ANION GAP 8 mmol/L (7-16) [facility] [place] [facility] UREA NITROGEN 22 mg/dL (7-24) [facility] [place] [facility] CREATININE 1.37 mg/dL (0.80-1.30) H [facility] [place] [facility] BUN/CREAT RATIO 16.1 RATIO (10.0-20.0) [facility] GLUCOSE 78 mg/dL (70-99) [facility] [place] [facility] CALCIUM 8.2 mg/dL (8.4-10.2) L [facility] [place] [facility] TOTAL PROTEIN 6.9 g/dL (6.4-8.2) [facility] [place] [facility] ALBUMIN 3.7 g/dL (3.5-4.6) [facility] [place] [facility] GLOBULIN 3.2 g/dL (2.7-4.3) [facility] [place] [facility] ALB/GLOB RATIO 1.2 RATIO [facility] [place] [facility] ALKALINE PHOSPHATASE 118 U/L (45-117) H [facility] BILIRUBIN,TOTAL 0.4 mg/dL (0.0-1.0) [facility] [place] [facility] PLEASE NOTE:Total bilirubin results may be falselyelevated in patients taking Eltrombopag. AST (SGOT) 18 U/L (11-39) [facility] [place] [facility] ALT (SGPT) 19 U/L (12-78) [facility] [place] [facility] GFR 55 ml/min/1.73m2 (>59) L [facility] [place] [facility] GFR ( AMER) >60 ml/min/1.73m2 (>59) [facility] [place] [facility] GFR INTERPRETATION [facility] --NORMAL KIDNEY FUNCTION OR MILD DISEASE - GFR >OR= 60CHRONIC KIDNEY DISEASE - GFR 15 - 59RENAL FAILURE - GFR <15 Est. GFR calculation based on the MDRDstudy equation, which assumes a steadystate for creatinine. Est. GFR should notbe used for medication dosing. ID Date Data Source [id number] 04/14/2021 12:39:14 PM EDT [facility] [place] [facility] Name Value Range Interpretation Code Description Data Romi rce(s) Supporting Document(s) APTT 31.3 s (22.0-34.3) [facility] [place] [facility] ID Date Data Source [id number] 04/14/2021 12:39:14 PM EDT [facility] [place] [facility] Name Value Range Interpretation Code Description Data Romi rce(s) Supporting Document(s) PT 11.3 s (9.2-11.9) [facility] [place] [facility] INR 1.09 [facility] [place] [facility] SUGGESTED THERAPEUTIC RANGES USING INR F ORSTABILIZED ANTICOAGULATED PATIENTS:STANDARD DOSE THERAPY INR 2.0-3.0 DVT, PE, PREVENT DVT OR EMBOLISMHIGH DOSE THERAPY INR 2.5-3.5 PREVENT EMBOLISM FROM MECHANICAL HEART VALVE ID Date Data Source [id number] 04/14/2021 12:23:49 PM EDT [facility] [place] [facility] Name Value Range Interpretation Code Description Data Romi rce(s) Supporting Document(s) WBC 7.5 10*3/uL (4.1-11.0) [facility] [place] [facility] [place] RBC 3.62 10*6/uL (4.60-6.10) L [facility] [place] [facility] HGB 11.0 g/dL (13.5-18.0) L [facility] [place] [facility] HCT 33.4 % (41.0-53.0) L [facility] [place] [facility] MCV 92.2 fL (80.0-95.0) [facility] [place] [facility] MCH 30.5 pg (27.0-32.0) [facility] [place] [facility] MCHC 33.1 g/dL (32.0-36.0) [facility] [place] [facility] RDW 16.3 % (10.5-14.5) H [facility] [place] [facility] PLT 200 10*3/uL (150-450) [facility] [place] [facility] MPV 8.8 fL (7.1-10.7) [facility] [place] [facility] NEUT % 63.1 % (35.0-75.0) [facility] [place] [facility] LYMPH % 29.0 % (16.0-52.0) [facility] [place] [facility] MONO % 5.8 % (0.0-8.0) [facility] [place] [facility] EOS % 1.4 % (0.0-5.0) [facility] [place] [facility] BASO % 0.7 % (0.0-4.0) [facility] [place] [facility] NEUT # 4.7 10*3/uL (1.8-7.7) [facility] [place] [facility] LYMPH # 2.2 10*3/uL (1.2-4.8) [facility] [place] [facility] MONO # 0.4 10*3/uL (0.0-0.8) [facility] [place] [facility] Eosinophils [#/volume] in Blood by Automated count 0.1 10*3/uL (0.0-0 .5) [facility] [place] [facility] BASO # 0.1 10*3/uL (0.0-0.2) [facility] [place] [facility] ID Date Data Source [id number] 04/14/2021 09:42:49 AM EDT [facility] [place] [facility] Name Value Range Interpretation Code Description Data Romi rce(s) Supporting Document(s) POC SOURCE [facility] [place] [facility] PUNCTURE SITE [facility] [place] [facility] O2 THERAPY [facility] [place] [facility] KB TEST [facility] [place] [facility] POC PH 7.27 pH (7.35-7.45) L [facility] [place] [facility] POC PCO2 32.7 MMHG (32.0-48.0) [facility] [place] [facility] POC PO2 89 MMHG (83-108) [facility] [place] [facility] POC SAT O2 96 % (95-99) [facility] [place] [facility] POC BASE DEFICIT 11 MMOL/L (0-2) H [facility] [place] [facility] POC HCO3 15.1 MMOL/L (21.0-29.0) L [facility] [place] [facility] POC TOTAL CO2 16 MMOL/L (23.0-32.0) L [facility] [place] [facility] PERFORMED BY [facility] CLINICAL STAFF ID Date Data Source [id number] 04/15/2021 10:33:27 AM EDT [facility] [place] [facility] Name Value Range Interpretation Code Description Data Romi rce(s) Supporting Document(s) SPECIMEN DESCRIPTION [facility] STAPH SCREEN RESULTS (ONEGSA) A [facility] COMMENT [facility] [place] RIC GENE TO DETECT STAPH AUREUS. (2) [...] [place] This lab was reported by [facility] [place] [facility]. ID Date Data Source [id number] 04/15/2021 07:17:38 AM EDT [facility] [place] [facility] GARCIA Name Value Range Interpretation Code Description Data Romi rce(s) Supporting Document(s) SPECIMEN DESCRIPTION [facility] COVID 19 RESULT (NDET) [facility] [place] o f [facility] NEGATIVE COVID-19 RESULTS DONOT PRECLUDE COVID-2019 INFECTION ANDSHOULD NOT BE USED THE SOLE BASISFOR PATIENT MANAGEMENT DECISIONS. COMMENT [facility] [place] [facility] THE U.S. FDA HAS MADE THIS TEST AVAILABL EUNDER AN EMERGENCY USE AUTHORIZATION(EUA) FOR THE DETECTION AND/OR DIAGNOSISOF THE VIRUS THAT CAUSES COVID-19.THIS ASSAY AMPLIFIES AND DETECTS TARGETDNA USING PHLEBOTOMY SUPERVISOR- MEDIATEDAMPLIFICATIONTESTING PERFORMED ON iwoca FIRST TEST [facility] [place] [facility] EMPLOYED IN HLTHCARE [facility] of [facility] SYMPTOMATIC [facility] [place] [facility] RIC DATE OF SYMPT ONSET [facility] HOSPITALIZED [facility] [place] [facility] ICU [facility] [place] [facility] CONGREGATE CARE SET [facility] [place] RIC ID Date Data Source [id number] 04/09/2021 06:14:43 PM EDT [facility] INFORMATIONPatient MRN Name Date of Age Gend*PT [id number] Adrian Andrews 1970 50 years M ---PT Location Admission Date/Time Visit ID Attending Provider --- --- --- --- EPI ID CSN Admitting Provider [id number] ---ConsultAssessment/Plan:50-year-old pleasant gentleman referred with most likely [...] None Highest education level: NoneOccupational History 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 Smoking status: Current Every [...] Social Gatherings with Friends and Family: Attends Congregational Services: Active Member of Clubs or Organizations: [...] rce(s) Supporting Document(s) ID Date Data Source [id number] 02/12/2021 02:29:00 PM EDT [facility] FASTING: UNKNOWNReceived: 02/08/2021 at 08:04:00 QPT: [facility], [address], [address] [place], [address], Jose Valentine MD Received: 02/08/2021 at 08:04:00 AMD : [facility], [address], [place], [address], Danielito Baum M.D.,PhD Name Value Range Interpretation Code Description Data [facility] rce(s) Supporting Document(s) Glucose [Mass/volume] in Serum [...] is approximately 13% higher for peopleidentified as -Fijian. eGFR NON-AFR. IVORIAN 74 mL/min/1.73m2 > OR = 60 Normal [...] results) [facility] ID Date Data Source [id number] 02/12/2021 02:29:00 PM EDT [facility] FASTING: UNKNOWNReceived: 02/08/2021 at 08:04:00 QPT: [facility], [address], [address] [place], [address], Jose Valentine MD Received: 02/08/2021 at 08:04:00 AMD : [facility], [address], [place], [address], Danielito Baum M.D.,PhD Name Value Range Interpretation Code Description Data Romi rce(s) Supporting Document(s) Natriuretic peptide.B prohormone N-Terminal [Mass/volu me] in Serum or Plasma 578 pg/mL Above high normal [facility] For Heart Failure (HF) diagnosis, refere nce ranges inpatients with dyspnea are based on Shana JL, Et al.Am Inocente Cardiol. 2018;71:0301-4867.18-49 years:<= 300 pg/mL Normal, HF unlikely>= 450 [...] Clin Biochem. 2010;43:1405-10.For additional information, please refer [email or web address].Spazzles/faq/[email or web address](This link is being provided for informational/educational purposes only.) Your request to have a duplicate copy faxed has been acknowledged. Queued to: [id number] COLLECTION DATE RECEIVED. WE HAVE USEDTHE DATE THE SPECIMEN WAS [facility]CE[facility] THE COLLECTION DATE. IF THISIS INCORRECT, PLEASE CONTACT CLIENT SERVICES.PHONE NUMBER: [phone] ID Date Data Source [id number] 01/24/2021 12:50:00 PM EDT [facility] Name Value Range Interpretation Code Description Data Romi rce(s) Supporting Document(s) SARS-CoV-2 (COVID-19) RNA [Presence] in Respiratory specimen by LEON with probe detection Not Detected [place] This lab was ordered by [facility] and reported by [employer]. ID Date Data Source [id number] 12/10/2020 01:26:06 PM EDT [facility] Name Value Range Interpretation Code Description Data Romi rce(s) Supporting Document(s) &PDF [facility] KTQEYa6gWyDOHtNc53/ITExhYLFmu5BlNCiiDPv6HNkuFBRwB1RaxKjySBEPRsYfK3XJFXPpRAYfVORm waW EaD7amgXNsepBUb6Lzu8UpsVfduybHEqDuXh8DGgXfWU7ial4TULZaZQ5qtz9ZUNO7BP8IjEw3JPOaM5 SoMTQwRKQxr6DwYR7CCQ5mhGklBzT3BB6+XDwzUVK5ruPhqJ3QQPBnHGjaCjf5ygW+Y5Z00PHMUa8Isr FIEsrkDCUcJULXPJEhSBGEJFMXFTH4huUO/iOrc3Ka [file] V6IpSoMsKjntTkY1AIxuPmUdRoZdCjLxFN0XZm8ZToB3STV1iNAjOt0VLiC5WuNITrYkDO1ONGo= ID Date Data Source [id number] 12/10/2020 01:27:46 PM EDT [facility] INFORMATIONPatient MRN Name Date of Age Gend*PT [id number] Adrian Andrews 1970 50 years M HOPPT Location Admission Date/Time Visit ID Attending Provider12/10/20 09 --- Susan House MD([id number]) EPI ID CSN Admitting Provider [id number] Susan House MD([id number])Pre-Procedure History and Physical:H&P reviewed. The patient was examined and there are no changes to the H&P.Risks/benefits and alternatives explained to patient/ and or family who iswilling to proceed.Specific risks explained include but are not limited to: contrast reaction,contrast induced nephropathy, vascular problems including stroke, OK and evendeath.Signature: Susan House II, MDInterventional CardiologyDate: December 10, 2020Time: 1:26 PM Name Value Range Interpretation Code Description Data Romi rce(s) Supporting Document(s) ID Date Data Source [id number] 12/10/2020 09:50:00 AM EDT [facility] Name Value Range Interpretation Code Description Data Romi rce(s) Supporting Document(s) SARS coronavirus 2 RNA [Presence] in Res piratory specimen by LEON with probe detection NOT DETECTED [place] This lab was reported by [facility] [place] [facility]. ID Date Data Source [id number] 12/10/2020 11:03:31 AM EDT [facility] [place] [facility] Name Value Range Interpretation Code Description Data Romi rce(s) Supporting Document(s) SPECIMEN DESCRIPTION [facility] INFLUENZA A (NEG) [facility] [place] of [facility] INFLUENZA B (NEG) [facility] [place] of [facility] RSV (NEG) [facility] [place] of [facility] COMMENT [facility] [place] of [facility] THE U.S. FDA HAS MADE THIS TEST AVAILABL EUNDER AN EMERGENCY USE AUTHORIZATION(EUA) FOR THE DETECTION AND/OR DIAGNOSISOF THE VIRUS THAT CAUSES COVID-19.PERFORMED AT [address] [place] [address] COVID19 RESULT (NDET) [facility] [place] [facility] THIS ASSAY AMPLIFIES AND DETECTSTHE TARG ET RNA USING REAL-TIME PCR.TESTING PERFORMED ON 5minutes GENEXPERTNEGATIVE 2019_NCOV RT-PCR RESULTS DONOT PRECLUDE 2019_NCOV INFECTION ANDSHOULD NOT BE USED THE SOLE BASISFOR PATIENT MANAGEMENT DECISIONS. FIRST TEST [facility] [place] [facility] EMPLOYED IN HLTHCARE [facility] SYMPTOMATIC [facility] [place] [facility] CN Y DATE OF SYMPT ONSET [facility] HOSPITALIZED [facility] [place] [facility] [place] ICU [facility] [place] [facility] CONGREGATE CARE SET [facility] [place] [facility] ID Date Data Source [id number] 12/10/2020 11:11:37 AM EDT [facility] [place] [facility] Name Value Range Interpretation Code Description Data Romi rce(s) Supporting Document(s) SODIUM 140 mmol/L (136-145) [facility] [place] [facility] POTASSIUM 4.4 mmol/L (3.6-5.2) [facility] [place] [facility] CHLORIDE 108 mmol/L (100-108) [facility] [place] [facility] CO2 27 mmol/L (22-31) [facility] [place] [facility] ANION GAP 5 mmol/L (7-16) L [facility] [place] [facility] UREA NITROGEN 7 mg/dL (7-24) [facility] [place] [facility] CREATININE 1.40 mg/dL (0.80-1.30) H [facility] [place] [facility] BUN/CREAT RATIO 5.0 RATIO (10.0-20.0) L [facility] [place] [facility] GLUCOSE 79 mg/dL (70-99) [facility] [place] [facility] CALCIUM 8.9 mg/dL (8.4-10.2) [facility] [place] [facility] GFR 53 ml/min/1.73m2 (>59) L [facility] [place] [facility] GFR ( AMER) >60 ml/min/1.73m2 (>59) [facility] [place] [facility] GFR INTERPRETATION [facility] --NORMAL KIDNEY FUNCTION OR MILD DISEASE - GFR >OR= 60CHRONIC KIDNEY DISEASE - GFR 15 - 59RENAL FAILURE - GFR <15 Est. GFR calculation based on the MDRDstudy equation, which assumes a steadystate for creatinine. Est. GFR should notbe used for medication dosing. ID Date Data Source [id number] 12/10/2020 10:59:23 AM EDT [facility] [place] [facility] Name Value Range Interpretation Code Description Data Romi rce(s) Supporting Document(s) WBC 5.2 10*3/uL (4.1-11.0) [facility] [place] of [place] RBC 3.93 10*6/uL (4.60-6.10) L [facility] [place] [facility] HGB 12.3 g/dL (13.5-18.0) L [facility] [place] [facility] HCT 35.5 % (41.0-53.0) L [facility] [place] [facility] Y PERFORMED AT [address] [place] [address] N [place] [address] MCV 90.3 fL (80.0-95.0) [facility] [place] [facility] MCH 31.2 pg (27.0-32.0) [facility] [place] [facility] MCHC 34.5 g/dL (32.0-36.0) [facility] [place] [facility] RDW 15.2 % (10.5-14.5) H [facility] [place] [facility] PLT 205 10*3/uL (150-450) [facility] [place] [facility] MPV 8.0 fL (7.1-10.7) [facility] [place] [facility] ID Date Data Source LIPID PANEL (CARDIAC RISK) 11/05/2020 12:00:00 AM EST eCW1 ( [facility]) Name Value Range Interpretation Code Description Data Romi rce(s) Supporting Document(s) Cholesterol [Moles/volume] in Serum or Plasma 220 <200 CHOLESTEROL LEVEL eC1 ([facility]) Triglyceride [Mass/volume] in Serum or Plasma by calculation 98 <150 TRIGLYCERIDES LEVEL [facility] ([facility]) 4.313 <5 CHOLESTEROL RISK RATIO eCW ([facility]) Cholesterol in HDL [Moles/volume] in Serum or Plasma 51 >40 HDL CHOLESTEROL eCW1 ([facility]) 169 NON-HDL-C eCW1 ([facility]) Cholesterol in LDL [Mass/volume] in Serum or Plasma by calculation 149 <100 LDL CHOLESTEROL eCW1 ([facility]) ID Date Data Source FREE T4 & TSH PANEL 11/05/2020 12:00:00 AM EST eCW1 ([facility]) Name Value Range Interpretation Code Description Data Romi rce(s) Supporting Document(s) 0.725 0.358-3.740 THYROID STIMULATING HORM ONE eCW1 ([facility]) 0.95 0.76-1.46 FREE T4 eCW1 ([facility]) ID Date Data Source Comprehensive Metabolic Profile (CMP) 11/05/2020 12:00:00 AM EST eCW1 ([facility]) Name Value Range Interpretation Code Description Data Romi rce(s) Supporting Document(s) 73 70-100 GLUCOSE, FASTING eCW1 ([facility]) 7 7-18 BLOOD UREA NITROGEN eCW1 ([facility]) 1.28 0.70-1.30 CREATININE FOR GFR eCW1 ([facility]) 107 98-107 CHLORIDE LEVEL eCW1 ([facility]) > 60.0 >56 GLOMERULAR FILTRATION RATE eCW 1 ([facility]) 138 136-145 SODIUM LEVEL eCW1 ([facility]) 5.4 3.5-5.1 POTASSIUM SERUM eCW1 ([facility]) 14 7-37 AST/SGOT eCW1 ([facility]) 135 45-117 ALKALINE PHOSPHATASE eCW1 ([facility]) 9.3 8.5-10.1 CALCIUM LEVEL eCW1 ([facility]) 26 21-32 CARBON DIOXIDE LEVEL eCW1 ([facility]) 19 12-78 ALT/SGPT eCW1 ([facility]) 7.3 6.4-8.2 TOTAL PROTEIN eCW1 ([facility]) 3.7 3.2-5.2 ALBUMIN eCW1 ([facility]) 1.0 ALBUMIN/GLOBULIN RATIO eCW1 ([facility]) 0.5 0.2-1.0 BILIRUBIN,TOTAL eCW1 ([facility]) ID Date Data Source CBC - Complete Blood Count 11/05/2020 12:00:00 AM EST eCW1 ( [facility]) Name Value Range Interpretation Code Description Data Romi rce(s) Supporting Document(s) 4.30 4.30-6.10 eCW1 ([facility]) 42.0 42.0-52.0 eCW1 ([facility]) 5.6 4.0-10.0 eCW1 ([facility]) 12.7 13.5-17.5 eCW1 ([facility]) 29.5 27.0-33.0 eCW1 ([facility]) 97.7 80.0-96.0 eCW1 ([facility]) 30.2 32.0-36.5 eCW1 ([facility]) 14.6 11.5-14.5 eCW1 ([facility]) [id number] eCW1 ([facility]) Procedure Social History Code Duration Value Status Description Data Source(s ) Smoking 06/26/2021 12:00:00 AM EDT Current Smoker completed Curre nt Smoker eCW1 ([facility]) Smoking 06/26/2021 12:00:00 AM EDT Current Smoker completed Curre nt Smoker eCW1 ([facility]) Smoking 06/25/2021 12:00:00 AM EDT Current Smoker completed Curre nt Smoker eCW1 ([facility]) Alcohol intake 04/26/2021 12:00:00 AM EDT Ex-drinker (finding) comp leted Ex- drinker (finding) [facility] Alcohol intake 04/23/2021 12:00:00 AM EDT Ex-drinker (finding) comp leted Ex- drinker (finding) [facility] Alcohol intake 04/14/2021 12:00:00 AM EDT Ex-drinker (finding) comp leted Ex- drinker (finding) [facility] Alcohol intake 04/07/2021 12:00:00 AM EDT Ex-drinker (finding) comp leted Ex- drinker (finding) [facility] Tobacco use and exposure 02/06/2021 12:00:00 AM EDT Never used co mpleted Never used [facility] Cigarette pack-years 02/06/2021 12:00:00 AM EDT UNK completed [facility] Cigarettes smoked current (pack per day) - Reported 02/07/20 12:00:00 AM EDT UNK completed [facility] Smoking 02/06/2021 12:00:00 AM EDT Current every day smoker co mpleted Current every day smoker [facility] Alcohol intake 02/06/2021 12:00:00 AM EDT Ex-drinker (finding) comp leted Ex- drinker (finding) [facility] Alcohol intake 01/06/2021 12:00:00 AM EDT Ex-drinker (finding) comp leted Ex- drinker (finding) [facility] Alcohol intake 12/10/2020 12:00:00 AM EDT Not Currently completed [facility] Cigarette pack-years 12/10/2020 12:00:00 AM EDT UNK completed [facility] Cigarettes smoked current (pack per day) - Reported 12/11/19 12:00:00 AM EDT UNK completed [facility] Smoking 12/10/2020 12:00:00 AM EDT Former smoker completed Former smoker [facility] Alcohol intake 12/09/2020 12:00:00 AM EDT Not Currently completed [facility] Cigarette pack-years 12/09/2020 12:00:00 AM EDT UNK completed [facility] Cigarettes smoked current (pack per day) - Reported 12/10/19 12:00:00 AM EDT UNK completed [facility] Smoking 12/09/2020 12:00:00 AM EDT Former smoker completed Former smoker [facility] Smoking 12/06/2020 12:00:00 AM EDT Current Smoker completed Curre nt Smoker eCW1 ([facility]) Smoking 12/06/2020 12:00:00 AM EDT Current Smoker completed Curre nt Smoker eCW1 ([facility]) Smoking 12/06/2020 12:00:00 AM EDT Current Smoker completed Curre nt Smoker eCW1 ([facility]) Smoking 12/06/2020 12:00:00 AM EDT Current Smoker completed Curre nt Smoker eCW1 ([facility]) Smoking 11/05/2020 12:00:00 AM EST Current Smoker completed Curre nt Smoker eCW1 ([facility]) Smoking 11/05/2020 12:00:00 AM EST Current Smoker completed Curre nt Smoker eCW1 ([facility]) Smoking 11/05/2020 12:00:00 AM EST Current Smoker completed Curre nt Smoker eCW1 ([facility]) Smoking 11/05/2020 12:00:00 AM EST Current Smoker completed Curre nt Smoker eCW1 ([facility]) 12/09/2020 12:00:00 AM EDT Cigarette Smoker completed Cig arette Smoker [facility] 12/09/2020 12:00:00 AM EDT Current smoker completed Curre nt smoker [facility] 12/09/2020 12:00:00 AM EDT Cigarette Smoker completed Cig arette Smoker [facility] 12/09/2020 12:00:00 AM EDT Current smoker completed Curre nt smoker [facility] Vital Signs ID Date Data Source UNK Name Value Range Interpretation Code Description Data Source(s) Body weight 138.0 [lb_av] 138.0 [lb_av] eCW1 ([facility]) Body height 69 [in_i] 69 [in_i] eCW1 ([facility]) Body mass index (BMI) [Ratio] 20.38 kg/m2 20.38 kg/m2 eCW1 ([facility]) Heart rate 117 /min 117 /min eCW1 ([facility]) Respiratory rate 18 /min 18 /min eCW1 ([facility]) Body temperature 98.0 [degF] 98.0 [degF] eCW1 ( [facility]) Systolic blood pressure 114 mm[Hg] 114 mm[Hg] e CW1 ([facility]) Diastolic blood pressure 64 mm[Hg] 64 mm[Hg] eCW1 ([facility]) Diastolic blood pressure 60 mm[Hg] 60 mm[Hg] eCW1 ([facility]) Body weight 141.4 [lb_av] 141.4 [lb_av] eCW1 ([facility]) Body height 69 [in_i] 69 [in_i] eCW1 ([facility]) Body mass index (BMI) [Ratio] 20.88 kg/m2 20.88 kg/m2 eCW1 ([facility]) Heart rate 130 /min 130 /min eCW1 ([facility]) Respiratory rate 18 /min 18 /min eCW1 ([facility]) Body temperature 98.7 [degF] 98.7 [degF] eCW1 ( [facility]) Systolic blood pressure 110 mm[Hg] 110 mm[Hg] e CW1 ([facility]) Systolic blood pressure 100 mm[Hg] 100 mm[Hg] [facility] Diastolic blood pressure 60 mm[Hg] 60 mm[Hg] [facility] Heart rate 72 /min 72 /min [facility] Respiratory rate 16 /min 16 /min [facility] Body height 172.7 cm 172.7 cm [facility] Body weight 60.328 kg 60.328 kg [facility] Body mass index (BMI) [Ratio] 20.22 kg/m2 20.22 kg/m2 [facility] Body temperature 36.[address] [facility] Systolic blood pressure 101 mm[Hg] 101 mm[Hg] [facility] Diastolic blood pressure 71 mm[Hg] 71 mm[Hg] [facility] Heart rate 69 /min 69 /min [facility] Respiratory rate 18 /min 18 /min [facility] Oxygen saturation in Arterial blood by Pulse oximetry 92 % 92 % [facility] Body weight 61.8 kg 61.8 kg [facility] Body mass index (BMI) [Ratio] 20.12 kg/m2 20.12 kg/m2 [facility] Body height 175.3 cm 175.3 cm [facility] Systolic blood pressure 113 mm[Hg] 113 mm[Hg] [facility] Diastolic blood pressure 64 mm[Hg] 64 mm[Hg] [facility] Heart rate 62 /min 62 /min [facility] Respiratory rate 18 /min 18 /min [facility] Oxygen saturation in Arterial blood by Pulse oximetry 97 % 97 % [facility] Systolic blood pressure 104 mm[Hg] 104 mm[Hg] [facility] Diastolic blood pressure 68 mm[Hg] 68 mm[Hg] [facility] Heart rate 67 /min 67 /min [facility] Respiratory rate 16 /min 16 /min [facility] Oxygen saturation in Arterial blood by Pulse oximetry 99 % 99 % [facility] room air Systolic blood pressure 136 mm[Hg] 136 mm[Hg] [facility] Diastolic blood pressure 90 mm[Hg] 90 mm[Hg] [facility] Heart rate 69 /min 69 /min [facility] Body height 175.3 cm 175.3 cm [facility] Body weight 64.864 kg 64.864 kg [facility] Body mass index (BMI) [Ratio] 21.12 kg/m2 21.12 kg/m2 [facility] Oxygen saturation in Arterial blood by Pulse oximetry 99 % 99 % [facility] Heart rate 86 /min 86 /min [facility] ([facility], ) Body height 69 [in_i] 69 [in_i] [facility] ([facility], ) 5'9" Body weight 144.00 [lb_av] 144.00 [lb_av] MEDEN T ([facility]) Body mass index (BMI) [Ratio] 21.3 kg/m2 21.3 k g/m2 [facility] ([facility]) [place] body weight 160 [lb_av] 160 [lb_av] [facility] Body weight 65.318 kg 65.318 kg [facility] ([facility]) Body surface area Derived from formula 1.80 m2 1.80 m2 [facility] ([facility]) Diastolic blood pressure 70 mm[Hg] 70 mm[Hg] [facility] ([facility]) Systolic blood pressure 106 mm[Hg] 106 mm[facility] Systolic blood pressure 136 mm[Hg] 136 mm[Hg] [facility] Diastolic blood pressure 80 mm[Hg] 80 mm[Hg] [facility] Heart rate 75 /min 75 /min [facility] Body height 175.3 cm 175.3 cm [facility] Body weight 67.586 kg 67.586 kg [facility] Body mass index (BMI) [Ratio] 22.00 kg/m2 22.00 kg/m2 [facility] Oxygen saturation in Arterial blood by Pulse oximetry 97 % 97 % [facility] Respiratory rate 16 /min 16 /min [facility] Systolic blood pressure 120 mm[Hg] 120 mm[Hg] [facility] Diastolic blood pressure 72 mm[Hg] 72 mm[Hg] [facility] Heart rate 74 /min 74 /min [facility] Body temperature 36.[address] [facility] Oxygen saturation in Arterial blood by Pulse oximetry 99 % 99 % [facility] Body height 175.3 cm 175.3 cm [facility] Body weight 65.318 kg 65.318 kg [facility] Body mass index (BMI) [Ratio] 21.27 kg/m2 21.27 kg/m2 [facility] Systolic blood pressure 152 mm[Hg] 152 mm[Hg] [facility] Diastolic blood pressure 100 mm[Hg] 100 mm[Hg] [facility] Heart rate 81 /min 81 /min [facility] Body height 175.3 cm 175.3 cm [facility] Body weight 65.499 kg 65.499 kg [facility] Body mass index (BMI) [Ratio] 21.32 kg/m2 21.32 kg/m2 [facility] Oxygen saturation in Arterial blood by Pulse oximetry 98 % 98 % [facility] Body weight 143 [lb_av] 143 [lb_av] W1 ([facility]) Body height 69 [in_i] 69 [in_i] eCW1 ([facility]) Body mass index (BMI) [Ratio] 21.12 kg/m2 21.12 kg/m2 [facility] ([facility]) Heart rate 90 /min 90 /min W1 ([facility]) Respiratory rate 18 /min 18 /min W1 ([facility]) Body temperature 97.1 [degF] 97.1 [degF] eCW1 ( [facility]) Systolic blood pressure 144 mm[Hg] 144 mm[Hg] e CW1 ([facility]) Diastolic blood pressure 84 mm[Hg] 84 mm[Hg] eCW1 ([facility]) Systolic blood pressure 142 mm[Hg] 142 mm[Hg] M EDENT ([facility]) Diastolic blood pressure 70 mm[Hg] 70 mm[Hg] MEDENT ([facility]) Body height 69 [in_i] 69 [in_i] MEDENT ([facility]) 5'9" Body weight 143.25 [lb_av] 143.25 [lb_av] MEDEN T ([facility]) Body mass index (BMI) [Ratio] 21.2 kg/m2 21.2 k g/m2 [facility] ([facility]) [place] body weight 160 [lb_av] 160 [lb_av] MEDEN T ([facility]) Body weight 64.978 kg 64.978 kg [facility] ([facility]) Body surface area Derived from formula 1.79 m2 1.79 m2 [facility] ([facility]) Systolic blood pressure 128 mm[Hg] 128 mm[Hg] e CW1 ([facility]) Diastolic blood pressure 76 mm[Hg] 76 mm[Hg] eCW1 ([facility]) Heart rate 85 /min 85 /min eCW1 ([facility]) Respiratory rate 18 /min 18 /min eCW1 ([facility]) Body weight 148 [lb_av] 148 [lb_av] eCW1 ([facility]) Body height 69 [in_i] 69 [in_i] eCW1 ([facility]) Body temperature 97.6 [degF] 97.6 [degF] eCW1 ( [facility]) Body mass index (BMI) [Ratio] 21.85 kg/m2 21.85 kg/m2 eCW1 ([facility]) Patient Treatment Plan of Care Planned Activity Planned Date Details Description Data Source (s) Oxycodone Hydrochloride 15 MG Oral Tablet 06/26/2021 12:00:00 AM ED T eCW1 ([facility]) Acetaminophen 325 MG / Hydrocodone Bitartrate 10 MG Or al Tablet 06/26/2021 12:00:00 AM EDT eCW1 ([facility]) Oxycodone Hydrochloride 15 MG Oral Tablet 06/26/2021 12:00:00 AM ED T eCW1 ([facility]) Acetaminophen 325 MG / Hydrocodone Bitartrate 10 MG Or al Tablet 06/26/2021 12:00:00 AM EDT eCW1 ([facility]) Metoprolol Tartrate 25 MG Oral Tablet 06/19/2021 12:00:00 AM EDT eCW1 ([facility]) Folic Acid 1 MG Oral Tablet 04/24/2021 12:00:00 AM EDT [facility] Daily Hoa (THERAGRAN) per tablet 04/24/2021 12:00:00 AM EDT [facility] Aspirin 81 MG Delayed Release Oral Tablet 04/24/2021 12:00:00 AM ED T [facility] Warfarin Sodium 1 MG Oral Tablet 04/23/2021 12:00:00 AM EDT [facility] Metoprolol Tartrate 25 MG Oral Tablet 04/23/2021 12:00:00 AM EDT [facility] ferrous gluconate 324 MG Oral Tablet 04/23/2021 12:00:00 AM EDT [facility] Acetaminophen 325 MG Oral Tablet 04/23/2021 12:00:00 AM EDT [facility] Docusate Sodium 100 MG Oral Capsule 04/22/2021 09:00:00 PM EDT [facility] POLYETHYLENE GLYCOL 3350 142 MG/ML Oral Solution 04/22/2021 07:00:0 0 PM EDT [facility] ondansetron (ZOFRAN) injection 4 mg 04/22/2021 06:22:27 PM EDT [facility] potassium chloride SA (K-DUR,KLOR-CON) CR tablet 40 mE q 04/22/2021 06:22:27 PM EDT [facility] potassium chloride SA (K-DUR,KLOR-CON) CR tablet 20 mE q 04/22/2021 06:22:27 PM EDT [facility] potassium chloride SA (K-DUR,KLOR-CON) CR tablet 20 mE q 04/22/2021 06:22:27 PM EDT [facility] potassium chloride SA (K-DUR,KLOR-CON) CR tablet 10 mE q 04/22/2021 06:22:27 PM EDT [facility] 10 ML Atropine Sulfate 0.1 MG/ML Prefilled Syringe 04/22/2021 06 :22:26 PM EDT [facility] Aluminum Hydroxide 64 MG/ML Oral Suspension 04/22/2021 06:22:26 PM EDT [facility] Bisacodyl 10 MG Rectal Suppository 04/22/2021 06:22:26 PM EDT [facility] Nitroglycerin 0.4 MG Sublingual Tablet 04/22/2021 06:22:26 PM EDT [facility] 50 ML Magnesium Sulfate 40 MG/ML Injection 04/22/2021 06:22:26 PM E DT [facility] 50 ML Magnesium Sulfate 40 MG/ML Injection 04/22/2021 06:22:26 PM E DT [facility] 50 ML Magnesium Sulfate 40 MG/ML Injection 04/22/2021 06:22:26 PM E DT [facility] magnesium sulfate 1 g in dextrose 5% infusion (premix) 04/22/2021 06:22:26 PM EDT [facility] Albuterol 0.83 MG/ML Inhalant Solution 04/22/2021 06:22:25 PM EDT [facility] Patient on Coumadin during hospitalizati on. (To order Coumadin on discharge click the don t prescribe button and go to new orders on discharge section. Coumadin can be ordered there. Alternatively, reconcile the pre admission Coumadin dose if it appears on the list below) 04/17/2021 11:12:17 AM EDT [facility] ezetimibe 10 MG Oral Tablet 02/06/2021 12:00:00 AM EDT [facility] 24 HR Nicotine 0.292 MG/HR Transdermal Patch 02/06/2021 12:00:00 AM EDT [facility] Furosemide 20 MG Oral Tablet 02/06/2021 12:00:00 AM EDT [facility] Lisinopril 5 MG Oral Tablet 01/07/2021 12:00:00 AM EDT [facility] Aspirin 81 MG Delayed Release Oral Tablet 12/09/2020 12:00:00 AM ED T [facility] Furosemide 40 MG Oral Tablet 12/09/2020 12:00:00 AM EDT [facility] atorvastatin 80 MG Oral Tablet 12/06/2020 12:00:00 AM EDT eCW1 ([facility]) 12 HR Bupropion Hydrochloride 100 MG Extended Release Oral Tablet 12/06/2020 12:00:00 AM EDT eCW1 ([facility]) atorvastatin 80 MG Oral Tablet 12/06/2020 12:00:00 AM EDT eCW1 ([facility]) 12 HR Bupropion Hydrochloride 100 MG Extended Release Oral Tablet 12/06/2020 12:00:00 AM EDT eCW1 ([facility]) albuterol (PROVENTIL HFA;VENTOLIN HFA) 108 (90 Base) M CG/ACT inhaler 12/06/2020 12:00:00 AM EDT [facility] atorvastatin 80 MG Oral Tablet 12/06/2020 12:00:00 AM EDT [facility] gabapentin 800 MG Oral Tablet 12/06/2020 12:00:00 AM EDT [facility] Sumatriptan 100 MG Oral Tablet 12/06/2020 12:00:00 AM EDT [facility] atorvastatin 80 MG Oral Tablet 12/06/2020 12:00:00 AM EDT eCW1 ([facility]) 12 HR Bupropion Hydrochloride 100 MG Extended Release Oral Tablet 12/06/2020 12:00:00 AM EDT eCW1 ([facility]) 12 HR Bupropion Hydrochloride 100 MG Extended Release Oral Tablet 12/06/2020 12:00:00 AM EDT [facility] atorvastatin 80 MG Oral Tablet 12/06/2020 12:00:00 AM EDT eCW1 ([facility]) 12 HR Bupropion Hydrochloride 100 MG Extended Release Oral Tablet 12/06/2020 12:00:00 AM EDT eCW1 ([facility]) Amitriptyline Hydrochloride 100 MG Oral Tablet 11/25/2020 12:00:00 AM EDT [facility] 168 HR Buprenorphine 0.02 MG/HR Transdermal Patch 11/21/2020 12: 00:00 AM EST [facility] 28 ACTUAT Fluticasone propionate 0.1 MG/ACTUAT Dry Pow tasneem Inhaler [Flovent] 11/06/2020 12:00:00 AM EST [facility] SPIRIVA RESPIMAT 2.5 MCG/ACT AERS 11/06/2020 12:00:00 AM EST [facility] 28 ACTUAT tiotropium 0.0025 MG/ACTUAT Metered Dose Inh aler [Spiriva] 11/05/2020 12:00:00 AM EST eCW1 ([facility]) 28 ACTUAT Fluticasone propionate 0.1 MG/ACTUAT Dry Pow tasneem Inhaler [Flovent] 11/05/2020 12:00:00 AM EST eCW1 ([facility]) Aspirin 81 MG Delayed Release Oral Tablet 11/05/2020 12:00:00 AM ES T eCW1 ([facility]) 28 ACTUAT tiotropium 0.0025 MG/ACTUAT Metered Dose Inh aler [Spiriva] 11/05/2020 12:00:00 AM EST eCW1 ([facility]) 28 ACTUAT Fluticasone propionate 0.1 MG/ACTUAT Dry Pow tasneem Inhaler [Flovent] 11/05/2020 12:00:00 AM EST eCW1 ([facility]) Aspirin 81 MG Delayed Release Oral Tablet 11/05/2020 12:00:00 AM ES T eCW1 ([facility]) 28 ACTUAT tiotropium 0.0025 MG/ACTUAT Metered Dose Inh aler [Spiriva] 11/05/2020 12:00:00 AM EST eCW1 ([facility]) 28 ACTUAT Fluticasone propionate 0.1 MG/ACTUAT Dry Pow tasneem Inhaler [Flovent] 11/05/2020 12:00:00 AM EST eCW1 ([facility]) Aspirin 81 MG Delayed Release Oral Tablet 11/05/2020 12:00:00 AM ES T eCW1 ([facility]) 28 ACTUAT tiotropium 0.0025 MG/ACTUAT Metered Dose Inh aler [Spiriva] 11/05/2020 12:00:00 AM EST eCW1 ([facility]) 28 ACTUAT Fluticasone propionate 0.1 MG/ACTUAT Dry Pow tasneem Inhaler [Flovent] 11/05/2020 12:00:00 AM EST eCW1 ([facility]) Aspirin 81 MG Delayed Release Oral Tablet 11/05/2020 12:00:00 AM ES T eCW1 ([facility]) Hydrocodone Bitartrate 10 MG / Ibuprofen 200 MG Oral Tablet [facility] Ibuprofen 200 MG Oral Tablet [facility]
--- NOTE | 2021-07-09 15:57 | HPEPDOC ---
[facility] Medical History & Physical Date of Admission Jul 09, 2021 Date of Service: Jul 09, 2021 History and Physical CHIEF COMPLAINT: Palpitations HISTORY OF PRESENT ILLNESS: 50-year-old male presents for 5 to 6-week history of worsening palpitations shortness of breath and generalized malaise. Roughly 2 months ago he underwent mitral valve replacement he states for 1 week after his mitral valve replacement he was lethargic recovering from his surgery. However the following week he states he felt good with no medical complaints. Since that time he has slowly been deteriorating as per patient. He also notes poor oral intake. In the emergency room he denies chest pain, headaches, abdominal pain, nausea, vomiting, diarrhea. PAST MEDICAL HISTORY: #Atrial flutter #recent mitral valve replacement 2 months ago - [facility] SOCIAL HISTORY: 15-lsvo-sncb smoking history. Patient states he quit 2 months ago. Denies alcohol or illicit drug use. FAMILY HISTORY: Father: from [place] and infection related to GSW from [place] war. Mother: Patient states she has cardiac history, details unknown. ALLERGIES: Please see below. REVIEW OF SYSTEMS: Negative except as per HPI. HOME MEDICATIONS: Please see below. PHYSICAL EXAMINATION: Vital Signs: reviewed General: NAD, sitting comfortably at edge of bed HEENT: NC/AT, EOMI Neck: supple, no masses Chest: lungs CTA B/L Heart: +S1S2, tachycardic Abd: soft, NT, ND, +BS Ext: no edema Skin: no rashes MSK: full ROM at large joints Neuro: no gross focal deficits Psych: AAOx3 LABORATORY DATA: See below. MICROBIOLOGY: Please see below. A/P: 50yo male presents for several week history of worsening palpitations, malaise and shortness of breath. Patient had a mitral valve replacement roughly 8 weeks ago. In the ED he is found to be in atrial flutter with rapid ventricular rate. #a flutter/RVR - start anticoagulation - coumadin, bridging with lovenox - lopressor for rate control - cardiology c/s pending - discussed over telephone #HLD - continue statin therapy #COPD - continue respiratory treatments #cluster migraines - continue gabapentin, amitriptyline #chronic pain/regional complex pain syndrome #medical non-compliance - complicates care #DVT prophylaxis - as above - on therapeutic lovenox/coumadin Vital Signs Vital Signs Date Time Temp Pulse Resp B/P (MAP) Pulse Ox O2 Delivery O2 Flow Rate FiO2 07/09/21 15:27 125 115/50 07/09/21 15:06 16 99 Room Air 07/09/21 13:47 97.4 Laboratory Data Labs 24H Laboratory Tests 2 07/09/21 14:15: Immature Granulocyte % (Auto) 0.3, Neutrophils (%) (Auto) 58.9, Lymphocytes (%) (Auto) 33.7, Monocytes (%) (Auto) 5.6, Eosinophils (%) (Auto) 0.7, Basophils (%) (Auto) 0.8, Neutrophils # (Auto) 5.6, Lymphocytes # (Auto) 3.2, Monocytes # (Auto) 0.5, Eosinophils # (Auto) 0.1, Basophils # (Auto) 0.1, Nucleated Red Blood Cells % (auto) 0.0, Prothrombin Time 15.6H, Prothromb Time International Ratio 1.19, Activated Partial Thromboplast Time 37.1, Anion Gap 3L, Glomerular Filtration Rate 49.6L, Calcium Level 9.7, Total Creatine Kinase 48, Creatine Kinase MB 2.3, Creatine Kinase MB Relative Index 4.79H, Troponin I < 0.02# CBC/BMP Laboratory Tests 07/09/21 14:15 Home Medications Scheduled Amitriptyline HCl (Amitriptyline HCl) 100 Mg Tablet, 100 MG PO QHS Atorvastatin Calcium (Atorvastatin Calcium) 80 Mg Tablet, 80 MG PO DAILY Diltiazem HCl (Cardizem) 30 Mg Tablet, 30 MG PO TID Ferrous Gluconate (Ferrous Gluconate) 324 Mg Tablet, 324 MG PO DAILY Fluticasone Propionate (Flovent Diskus) 100 Mcg Blst.w.dev, 1 PUFF INH BID Gabapentin (Gabapentin) 800 Mg Tablet, 800 MG PO TID Hydrocodone/Acetaminophen (Hydrocodone-Acetamin 10-325 mg) 1 Each Tablet, 1 TAB PO TID Metoprolol Tartrate (Metoprolol Tartrate) 25 Mg Tablet, 25 MG PO BID Oxycodone Hcl (Oxycodone HCl) 15 Mg Tablet, 15 MG PO BID Tiotropium [place] (Spiriva Respimat) 4 Gm Mist.inhal, 2 PUFF INH DAILY Warfarin Sodium (Warfarin Sodium) 1 Mg Tablet, 1 MG PO DAILY Scheduled PRN Sumatriptan Succinate (Sumatriptan Succinate) 100 Mg Tablet, 100 MG PO DAILY PRN for HEADACHE Allergies Coded Allergies: codeine (Verified Allergy, Intermediate, rash, 01/29/21) A-FIB/CHADSVASC A-FIB History Current/History of A-Fib/PAF?: Yes Current PO Anticoag Therapy: Yes AZALEA JOLLY MD Jul 09, 2021 15:57
[2021-07-09 16:58] LABS: RSV AMPLIFICATION NEGATIVE (NEGATIVE)
[2021-07-09] MEDS ORDERED: CARD40TA PO (17:19)
[2021-07-09] MEDS ORDERED: FERR325T3 PO (17:19)
[2021-07-09] MEDS ORDERED: HOME MED LIST COMPLETE! XX SCH (17:20)
[2021-07-09] MEDS: WARFARIN SOD 5MG TAB PO SCH (17:34)
[2021-07-09] MEDS: ENOXAPARIN 60MG/0.6ML SYRINGE (J1650 PER 10MG) SC SCH (17:34)
[2021-07-09 17:53] VITALS: BP 121/75
[2021-07-09] MEDS ORDERED: SUMAtriptan SUCCINATE 25 MG TAB PO PRN (19:05)
[2021-07-09 20:00] VITALS: BP 121/71
[2021-07-09] MEDS: FLUTICASONE HFA 110 MCG 12 GM INHALER (FLOVENT) INH SCH (20:00)
[2021-07-09] MEDS: AMITRIPTYLINE 50 MG TAB PO SCH (20:09)
[2021-07-09] MEDS: GABAPENTIN 400MG CAP PO SCH (20:09)
[2021-07-09] MEDS: METOPROLOL TART 50 MG TAB PO SCH (22:00)
[2021-07-10] VITALS (12 sets, daily range): BP systolic 82–128; BP diastolic 50–131
[2021-07-10] MEDS ORDERED: NORCO, ANEXSIA 5/325MG TABLET (HYDROcodone/ACETAMINOPHEN) PO ONE (00:45)
[2021-07-10 05:48] LABS: HEMATOCRIT 46.4 % (42.0-52.0); HEMOGLOBIN 14.1 g/dl (13.5-17.5); MEAN CORPUSCULAR HEMOGLOBIN 27.9 pg (27.0-33.0); MEAN CORPUSCULAR HGB CONC 30.4 g/dl (32.0-36.5); MEAN CORPUSCULAR VOLUME 91.9 fl (80.0-96.0); PLATELET COUNT, AUTOMATED 222 10^3/uL (150-450); RED BLOOD COUNT 5.05 10^6/uL (4.30-6.10); WHITE BLOOD COUNT 9.4 10^3/uL (4.0-10.0)
[2021-07-10 05:57] LABS: INR 1.29; PROTHROMBIN TIME 16.5 SECONDS (12.7-14.5)
[2021-07-10] MEDS: METOPROLOL TART 50 MG TAB PO SCH ×2 (05:57→13:48)
[2021-07-10] MEDS: ENOXAPARIN 60MG/0.6ML SYRINGE (J1650 PER 10MG) SC SCH ×2 (05:58→16:54)
[2021-07-10] MEDS ORDERED: AMIODARONE HCL 150 MG in IV 1 EA IV STA (06:17)
[2021-07-10 06:21] LABS: BLOOD UREA NITROGEN 20 MG/DL (7-18); CARBON DIOXIDE LEVEL 19 MEQ/L (21-32); CHLORIDE LEVEL 114 MEQ/L (98-107); CREATININE FOR GFR 1.13 MG/DL (0.70-1.30); GLOMERULAR FILTRATION RATE > 60.0 (>56); GLUCOSE, FASTING 83 MG/DL (70-100); POTASSIUM SERUM 4.7 MEQ/L (3.5-5.1); SODIUM LEVEL 139 MEQ/L (136-145)
[2021-07-10] MEDS: TIOTROPIUM INHALER/CAPSULE (SPIRIVA) INH SCH (08:00)
[2021-07-10] MEDS: FLUTICASONE HFA 110 MCG 12 GM INHALER (FLOVENT) INH SCH ×2 (08:00→20:00)
[2021-07-10] MEDS: FERROUS GLUCONATE 324 MG TAB PO SCH (08:08)
[2021-07-10] MEDS: ATORVASTATIN 20 MG TAB PO SCH (08:08)
[2021-07-10] MEDS: GABAPENTIN 400MG CAP PO SCH ×3 (08:09→20:26)
--- NOTE | 2021-07-10 09:58 | IPNPDOC ---
Text Note Date of Service The patient was seen on 07/10/21. NOTE Subjective: Patient seen and examined at bedside. Patient tachycardic and hypotensive this morning. Amiodarone was administered. This morning patient notes shortness of breath. Denies chest pain. Objective: Vital Signs: reviewed General: NAD, lying comfortably in bed HEENT: NC/AT, EOMI Neck: supple, no masses Chest: lungs CTA B/L Heart: +S1S2, tachycardic Abd: soft, NT, ND, +BS Ext: no edema Skin: no rashes MSK: full ROM at large joints Neuro: no gross focal deficits Psych: AAOx3 A/P: 50yo male presents for several week history of worsening palpitations, malaise and shortness of breath. Patient had a mitral valve replacement roughly 8 weeks ago. #a flutter/RVR - continue anticoagulation - coumadin, bridging with lovenox - lopressor for rate control - cardiology c/s pending #HLD - continue statin therapy #COPD - continue respiratory treatments #cluster migraines - continue gabapentin, amitriptyline #chronic pain/regional complex pain syndrome #medical non-compliance - complicates care #DVT prophylaxis - as above - on therapeutic lovenox/coumadin VS,Fishbone, I+O VS, Fishbone, I+O Laboratory Tests 07/09/21 14:15 07/10/21 05:10 Vital Signs Date Time Temp Pulse Resp B/P (MAP) Pulse Ox O2 Delivery O2 Flow Rate FiO2 07/10/21 08:00 97.1 66 20 97/55 (69) 92 Room Air I&O- Last 24 Hours up to 6 AM 07/10/21 06:00 Intake Total 0 ml Balance 0 ml AZALEA JOLLY MD Jul 10, 2021 09:58
[2021-07-10] MEDS: oxyCODONE 5MG TAB PO SCH ×2 (10:37→20:29)
[2021-07-10] MEDS ORDERED: AMIODARONE HCL 150 MG in IV 1 EA IV ONE (13:15)
[2021-07-10] MEDS: PERCOCET 5MG/325MG TAB PO PRN ×2 (13:33→18:47)
[2021-07-10 16:37] LABS: HEMATOCRIT 49.4 % (42.0-52.0); HEMOGLOBIN 14.9 g/dl (13.5-17.5); MEAN CORPUSCULAR HEMOGLOBIN 28.5 pg (27.0-33.0); MEAN CORPUSCULAR HGB CONC 30.2 g/dl (32.0-36.5); MEAN CORPUSCULAR VOLUME 94.5 fl (80.0-96.0); PLATELET COUNT, AUTOMATED 260 10^3/uL (150-450); RED BLOOD COUNT 5.23 10^6/uL (4.30-6.10); WHITE BLOOD COUNT 9.1 10^3/uL (4.0-10.0)
[2021-07-10] MEDS: WARFARIN SOD 5MG TAB PO SCH (16:54)
[2021-07-10 17:05] LABS: CALCIUM LEVEL 9.6 MG/DL (8.5-10.1); CREATININE FOR GFR 1.4 MG/DL (0.70-1.30); GLOMERULAR FILTRATION RATE 56.7 (>56); POTASSIUM SERUM 4.3 MEQ/L (3.5-5.1)
[2021-07-10 17:38] LABS: MB/CK RELATIVE INDEX 4.08 (< OR =4); TROPONIN I 0.03 NG/ML (< 0.10)
[2021-07-10] MEDS ORDERED: DIGOXIN 0.25 MG TAB PO ONE (18:30)
--- NOTE | 2021-07-10 20:08 | ECGEPIP ---
[facility] - ED Test Date: 2021-07-09 Pat Name: PRINCESS MONTES Department: Room: - Gender: Male Campaign Consultant: MITALI : 1970 Requested By: Noelle Whitmore Order Number: [id number] Reading MD: Noelle Whitmore Measurements Intervals [place] Rate: 139 P: 256 [place]: QRS: 83 QRSD: 76 T: 100 QT: 360 QTc: 547 Interpretive Statements Atrial flutter with 2:1 AV conduction Septal infarct , age undetermined decreased rate 07/08/21 Electronically Signed on 07-10-2021 20:08:08 EDT by Noelle Whitmore
[2021-07-10] MEDS: AMITRIPTYLINE 50 MG TAB PO SCH (20:26)
[2021-07-10] MEDS ORDERED: METOPROLOL SUCC (TopROL XL) 100MG *XL* TAB PO SCH (21:00)
[2021-07-11 00:20] VITALS: BP 92/66
[2021-07-11 04:00] VITALS: BP 106/70
[2021-07-11 06:08] LABS: INR 1.79; PROTHROMBIN TIME 21.2 SECONDS (12.7-14.5)
[2021-07-11] MEDS: ENOXAPARIN 60MG/0.6ML SYRINGE (J1650 PER 10MG) SC SCH (06:11)
--- NOTE | 2021-07-11 07:20 | CR ---
CONSULTATION DATE: 07/10/2021 REFERRING PHYSICIAN: AZALEA JOLLY M.D. INDICATION: Atrial flutter. HISTORY OF PRESENT ILLNESS: Mr. Andrews is known to me. 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 The procedure was complicated by development of complete heart block and permanent pacemaker was implanted on April 22, 2021. The patient was discharged home on anticoagulation and was seen in follow-up in our office about 10 days after discharge when he was feeling well. He subsequently called our office earlier this week because of feeling of profound fatigue and exertional intolerance. He was found to be in atrial flutter with 2:1 conduction and ventricular rate approximately 150 beats per minute. He was referred to the Emergency Room where he was seen the day before yesterday but it appeared that he signed out AMA after getting somewhat mixed messages from the Emergency Room staff and probably as a consequence of misunderstanding. He came to our office again on the day of this current admission to be found yet again with atrial flutter with 2:1 conduction and rapid ventricular response. He had profound exertional intolerance. He said he was not able to tolerate more than walking from one room to the other without feeling extremely short of breath. He had no near syncopal episodes. He also did not have any PND, orthopnea or resting symptoms. The evaluation in the Emergency Room revealed essentially normal blood work but he was quite tachycardic. After discussion between me and Dr. Jolly he was given metoprolol 50 mg q. 8 hours, was put on Lovenox because his INR is completely subtherapeutic and overnight his heart rate slowed down some but only after he received intravenous amiodarone. This morning, the patient tells me he is feeling well at rest which is unchanged but with minimal activity he still gets rapidly short of breath. Review of telemetry tracing confirms that he was intermittently tachycardic with 2:1 conduction but there were even prolonged episodes of time when he starts to slow down to conduction 4:1. There were no long pauses. I certainly did not see any evidence for ventricular pacing. There were no ventricular arrhythmias. PAST MEDICAL HISTORY: 1. History of combined mitral valve disease as outlined above with history of mitral valve replacement on April 17. He received Medtronic mosaic 29 mm bioprosthesis using minimally invasive approach. 2. History of severe spinal disease with chronic pain and use of narcotics. 3. Nonobstructive carotid artery disease. 4. Complex regional pain syndrome of left lower extremity. 5. COPD. 6. Dyslipidemia. 7. Migraines. 8. History of nephrolithiasis. 9. History of PVD. PAST SURGICAL HISTORY: 1. Appendectomy. 2. Mitral valve replacement as above. 3. Femur fracture surgery as a child. 4. Inguinal hernia repair. 5. Spinal cord stimulator implant. 6. Multiple lithotripsies. FAMILY HISTORY: Father of a heart attack, mother of a heart disease also. SOCIAL HISTORY: The patient is . He has two children. 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 He smokes a pack of cigarettes a day. No history of significant alcohol use or drug use. REVIEW OF SYSTEMS: He denies any recent fever, chills, nausea, vomiting, or diarrhea. No ramu chest discomfort. No syncope or near syncope. No bleeding. He had significant exertional intolerance. PHYSICAL EXAMINATION: VITAL SIGNS: Blood pressure 92/50, heart rate varying from 70s to 150, averaging around 100 beats per minute. He is afebrile, saturation 92% on room air. Weight was recorded at only 57.4 kg. GENERAL: Alert, oriented and appropriate. NECK: His JVP does not look elevated. No goiter. He has a faint bilateral carotid bruit. LUNGS: Clear with good air movement. No wheezing, crackles or rhonchi. HEART: Regular tachycardia. I do not appreciate any distinct murmur. There is a right lateral thoracotomy scar that is well-healed. ABDOMEN: Very slim, no obvious tenderness or rebound, nor is there any organomegaly. EXTREMITIES: Very of edema, peripheral pulses are palpable. No trophic defects. NEUROLOGIC: Intact. LABORATORY DATA: As of this morning, basic metabolic panel: Sodium 137, potassium is 4.3, BUN 19, creatinine 1.4 for a GFR of 57 and glucose of 76. Two sets of cardiac enzymes were negative. TSH was 1.9. INR on admission was 1.l2, is 1.29 today and CBC was normal. EKG revealed atrial flutter with rapid ventricular response and imaging revealed no convincing evidence for congestive heart failure and history of valve replacement and pacemaker placement was confirmed. ASSESSMENT AND PLAN: Mr. Andrews is a 50-year-old slim man who underwent mitral valve replacement for severe rheumatic mitral valve disease approximately three months ago. At some point he developed atrial flutter with rapid ventricular response. The onset is unclear but it is probable that it has been at least several weeks ago. He was on an outpatient basis on relatively low dose of metoprolol 25 mg twice a day which clearly was not accomplishing any results. Because he is not effectively anticoagulated, it is not safe to proceed directly with cardioversion. Even with transesophageal echocardiogram in the presence of relatively new valve, I am somewhat reluctant because I believe that the risk of thrombotic complication is relatively high. Consequently, my preferred choice would be to accomplish better rate control, use Lovenox until we achieve a therapeutic INR and then proceed with elective cardioversion down the road. If we are not able to accomplish this under any circumstances, then ROBERT guided cardioversion can be pursued sometime next week. So far, he has been receiving metoprolol 50 t.i.d. but his blood pressure has been soft. There has been some improvement in heart rate after he improved with IV Amiodarone but I am reluctant to continue the medication because it can actually cause him to cardiovert into sinus rhythm which at this point is not desirable. Consequently, I made some changes in his medications. Will start him on Digoxin, I gave him initially 0.5 mg tonight, then 0.25 mg tomorrow and then 0.125 mg daily. This may not be sufficient loading dose but because he is of very small stature and has a mild degree of renal insufficiency I believe that it will be satisfactory. I am also going to change his metoprolol to extended release which hopefully will eliminate holding some of his doses. If this should not be sufficient, then the Digoxin can be boosted as another 0.25 mg tomorrow evening. Hopefully, this will be sufficiently effective in controlling his rate. Fortunately, we have pacemaker in place and consequently we do not have to be particularly afraid of bradycardia. I explained to the patient that it may take several more days before the goal is accomplished and that he needs to be patient. As far as the remaining problems are concerned, I do not believe that he is in any ramu congestive heart failure. At least, I do not appreciate any signs of volume overloaded state. As far as pain management is concerned, I will leave that to the primary team.
[2021-07-11 07:43] LABS: HEMATOCRIT 43.8 % (42.0-52.0); HEMOGLOBIN 13.1 g/dl (13.5-17.5); MEAN CORPUSCULAR HEMOGLOBIN 28.1 pg (27.0-33.0); MEAN CORPUSCULAR HGB CONC 29.9 g/dl (32.0-36.5); PLATELET COUNT, AUTOMATED 196 10^3/uL (150-450); RED BLOOD COUNT 4.66 10^6/uL (4.30-6.10); WHITE BLOOD COUNT 7.1 10^3/uL (4.0-10.0)
[2021-07-11 08:00] VITALS: BP 124/83
[2021-07-11] MEDS: FLUTICASONE HFA 110 MCG 12 GM INHALER (FLOVENT) INH SCH (08:00)
[2021-07-11] MEDS: TIOTROPIUM INHALER/CAPSULE (SPIRIVA) INH SCH (08:00)
[2021-07-11 08:05] LABS: CALCIUM LEVEL 8.9 MG/DL (8.5-10.1); CK-MB VALUE MASS 2.1 NG/ML (<3.6); CREATININE FOR GFR 1.35 MG/DL (0.70-1.30); GLOMERULAR FILTRATION RATE 59.1 (>56); MB/CK RELATIVE INDEX 5.53 (< OR =4); POTASSIUM SERUM 4.2 MEQ/L (3.5-5.1); TROPONIN I 0.04 NG/ML (< 0.10)
[2021-07-11] MEDS ORDERED: DIGOXIN 0.25 MG TAB PO ONE (09:00)
[2021-07-11] MEDS: ATORVASTATIN 20 MG TAB PO SCH (09:35)
[2021-07-11] MEDS: oxyCODONE 5MG TAB PO SCH (09:35)
[2021-07-11] MEDS: FERROUS GLUCONATE 324 MG TAB PO SCH (09:35)
[2021-07-11] MEDS: GABAPENTIN 400MG CAP PO SCH (09:36)
[2021-07-11] MEDS ORDERED: DIGO0.123 PO (10:41)
[2021-07-11] MEDS ORDERED: JANT5TAB PO (10:41)
[2021-07-11] MEDS ORDERED: METO1TAB33 PO (10:41)
[2021-07-11] MEDS: PERCOCET 5MG/325MG TAB PO PRN (10:44)
--- NOTE | 2021-07-11 11:40 | DS.PDOC ---
Discharge Summary General Date of Admission Jul 09, 2021 at 14:54 Date of Discharge 07/11/21 Discharge Summary PROCEDURES PERFORMED DURING STAY: [None]. DISCHARGE DIAGNOSES: #a flutter/RVR #HLD #COPD #cluster migraines #chronic pain/regional complex pain syndrome #medical non-compliance COMPLICATIONS/CHIEF COMPLAINT: Atrial Flutter With Rapid Ventricular Response. HPI/Hospital Course: Patient presented for worsening palpitations and shortness of breath. He has a history of recent mitral valve replacement roughly 2 months ago. The week immediately following his mitral valve replacement he was recovering. The following week he stated stated that he was feeling much better. However over the last 4 weeks he states he has been feeling worse, complaining of worsening shortness of breath and palpitations. Patient was admitted for further evaluation and treatment of his a flutter with rapid ventricular rate. Patient was seen in consultation by cardiology. His rate was controlled with beta-blockers, amiodarone and digoxin. His Coumadin dosing was increased as he was subtherapeutic on admission, and bridged with Lovenox. Patient was very anxious to return home, stating he would leave [facility]. Case was discussed with cardiology Dr. Syed and Dr. Parish with recommendations for discharge home and follow-up in their office on Wednesday. DISCHARGE MEDICATIONS: Please see below. ALLERGIES: Please see below. PHYSICAL EXAMINATION ON DISCHARGE: Vital Signs: reviewed General: NAD, lying comfortably in bed HEENT: NC/AT, EOMI Neck: supple, no masses Chest: lungs CTA B/L Heart: +S1S2, RRR Abd: soft, NT, ND, +BS Ext: no edema Skin: no rashes MSK: full ROM at large joints Neuro: no gross focal deficits Psych: AAOx3 LABORATORY DATA: Please see below. ACTIVITY: [As tolerated]. DISCHARGE INSTRUCTIONS: 1. Follow-up with cardiology as directed on July 14. 2. Follow up INR with cardiology. DISCHARGE CONDITION: [Stable]. TIME SPENT ON DISCHARGE: 35 minutes. Vital Signs/I&Os Vital Signs Date Time Temp Pulse Resp B/P (MAP) Pulse Ox O2 Delivery O2 Flow Rate FiO2 07/11/21 11:14 18 07/11/21 10:44 100 07/11/21 09:36 105 07/11/21 08:00 97.4 124/83 (97) Room Air I&O- Last 24 Hours up to 6 AM 07/11/21 06:00 Intake Total 1180 ml Balance 1180 ml Laboratory Data Labs 24H Laboratory Tests 2 07/10/21 16:13: Nucleated Red Blood Cells % (auto) 0.0, Anion Gap 5L, Glomerular Filtration Rate 56.7, Calcium Level 9.6, Total Creatine Kinase 49, Creatine Kinase MB 2.0, Creatine Kinase MB Relative Index 4.08H, Troponin I 0.03# 07/11/21 05:20: Nucleated Red Blood Cells % (auto) 0.0, Anion Gap 1L, Glomerular Filtration Rate 59.1, Calcium Level 8.9, Total Creatine Kinase 38L, Creatine Kinase MB 2.1, Creatine Kinase MB Relative Index 5.53H, Troponin I 0.04# 07/11/21 05:21: Prothrombin Time 21.2H, Prothromb Time International Ratio 1.79 CBC/BMP Laboratory Tests 07/10/21 16:13 07/11/21 05:20 Discharge Medications Scheduled Amitriptyline HCl (Amitriptyline HCl) 100 Mg Tablet, 100 MG PO QHS, (Reported) Atorvastatin Calcium (Atorvastatin Calcium) 80 Mg Tablet, 80 MG PO DAILY, (Reported) Digoxin (Digoxin) 125 Mcg Tablet, 0.125 MG PO DAILY Ferrous Gluconate (Ferrous Gluconate) 324 Mg Tablet, 324 MG PO DAILY, (Reported) Fluticasone Propionate (Flovent Diskus) 100 Mcg Blst.w.dev, 1 PUFF INH BID, (Reported) Gabapentin (Gabapentin) 800 Mg Tablet, 800 MG PO TID, (Reported) Hydrocodone/Acetaminophen (Hydrocodone-Acetamin 10-325 mg) 1 Each Tablet, 1 TAB PO TID, (Reported) Metoprolol Succinate (Metoprolol Succinate) 100 Mg Tab.er.24h, 100 MG PO QHS Oxycodone Hcl (Oxycodone HCl) 15 Mg Tablet, 15 MG PO BID, (Reported) Tiotropium [place] (Spiriva Respimat) 4 Gm Mist.inhal, 2 PUFF INH DAILY, (Reported) Warfarin Sodium (Jantoven) 5 Mg Tablet, 5 MG PO DAILY@1700 Scheduled PRN Sumatriptan Succinate (Sumatriptan Succinate) 100 Mg Tablet, 100 MG PO DAILY PRN for HEADACHE, (Reported) Allergies Coded Allergies: codeine (Verified Allergy, Intermediate, rash, 01/29/21) AZALEA JOLLY MD Jul 11, 2021 11:40
[2021-07-12] MEDS ORDERED: DIGOXIN 0.125 MG TAB PO SCH (09:00)
--- NOTE | 2021-07-12 14:38 | ECHO ---
ECHOCARDIOGRAM DATE OF PROCEDURE: 07/10/2021 Age: 50 Gender: Male Height: Weight: REFERRING PROVIDER: Molina Sanchez N.P. PATIENT LOCATION: Room 3216. REASON FOR THE TESTING: Abnormal EKG. MEASUREMENTS: 2D Measurements IVS 1.0 cm LVEDP 4.6 cm LVPW 0.94 cm LA 4.4 cm Aorta 3.1 cm IVC 1.8 cm Doppler Measurements: Peak velocity across the aortic valve 1.4 m/sec Peak velocity across the LVOT 1.0 m/sec Mitral E 1.4 Maximum tricuspid valve velocity 2.4 m/sec 2D COMMENTS: 1. Normal left ventricular size and wall thickness, but with a severely depressed global left ventricular systolic function with a left ventricular ejection fraction (LVEF) estimated between 25-30%. There was global hypokinesis. 2. Mildly dilated left atrium. The right atrium was thought to appear to be enlarged. Normal right ventricle. 3. The atrial septum appeared to be normal without evidence of defect or shunt. 4. Normal aortic root. 5. Trace to small pericardial effusion noted. No evidence of cardiac tamponade. 6. Mildly calcified aortic valve with normal leaflet excursion. Bioprosthetic mitral valve noted with normal function. Normal tricuspid valve. The pulmonic valve and proximal pulmonary artery branches were not well visualized. 7. The inferior vena cava appeared to be mildly enlarged. Central venous pressure is probably elevated. DOPPLER: Only mild tricuspid regurgitation detected. The calculated pulmonary artery systolic pressure varies between 30-40 mmHg. There was no evidence of mitral regurgitation. IMPRESSION: 1. Severe global left ventricular systolic dysfunction. Assessment of the left ventricular diastolic function was limited in view of the underlying atrial fibrillation. 2. Aortic valve sclerosis without stenosis or aortic regurgitation. 3. Mild tricuspid regurgitation with mild pulmonary hypertension and dilated right atrium. 4. Bioprosthetic mitral valve without evidence of mitral regurgitation or significant stenosis. The left atrium is mildly enlarged. 5. A small pericardial effusion was noted. No evidence of cardiac tamponade. 6. Patient, during the test, was in atrial fibrillation with a controlled ventricular rate.
--- NOTE | 2021-07-12 17:33 | ECGEPIP ---
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
== END 2021-07-11 12:17 | disposition home or self-care (01) | DRG 309 ==
LOC: M ED 13:47 → M ED INP 14:54 → ENRESERV 17:06 → M PCU 17:53
PROVIDERS: ADMIT Internal Medicine; ATTEND Internal Medicine
DX: I48.92 Unspecified atrial flutter (principal); G90.522 Complex regional pain syndrome I of left lower limb; J44.9 Chronic obstructive pulmonary disease, unspecified; E78.5 Hyperlipidemia, unspecified; G44.009 Cluster headache syndrome, unspecified, not intractable; Z79.899 Other long term (current) drug therapy; Z79.01 Long term (current) use of anticoagulants; Z95.1 Presence of aortocoronary bypass graft; Z88.5 Allergy status to narcotic agent; Z87.891 Personal history of nicotine dependence; Z91.19 Patient's noncompliance with other medical treatment and regimen; Z95.3 Presence of xenogenic heart valve; Z95.0 Presence of cardiac pacemaker; I44.2 Atrioventricular block, complete; Z90.49 Acquired absence of other specified parts of digestive tract

== ENCOUNTER 2021-08-06 13:26 | Inpatient (IN) | payer OTHER ==
[~2021-08-06] VITALS: Ht 175.3 cm; Wt 55.5 kg
[~2021-08-06 13:26] MED LIST changes: +DIGO0.123 PO; +FERR325T3 PO; +FERR32TA PO; +HYDR-3719 PO; +JANT5TAB PO; -LISI-898 PO; +LISI5TAB11 PO; +METO1TAB33 PO; +OXYC-1 PO; +WARF4TAB52 PO
[2021-08-06 14:08] LABS: BASO # 0.1 10^3/uL (0.0-0.2); BASO % 0.8 % (0.0-1.0); EOS # 0.1 10^3/uL (0.0-0.5); EOS % 1.1 % (0.0-3.0); HEMATOCRIT 53.4 % (42.0-52.0); HEMOGLOBIN 16.2 g/dl (13.5-17.5); LYMPH # 3.7 10^3/uL (1.5-5.0); LYMPH % 41.1 % (24.0-44.0); MEAN CORPUSCULAR HEMOGLOBIN 28.1 pg (27.0-33.0); MEAN CORPUSCULAR HGB CONC 30.3 g/dl (32.0-36.5); MEAN CORPUSCULAR VOLUME 92.5 fl (80.0-96.0); MONO # 0.8 10^3/uL (0.0-0.8); MONO % 8.6 % (2.0-8.0); NEUTROPHILS # 4.4 10^3/uL (1.5-8.5); NEUTROPHILS % 48.1 % (36.0-66.0); PLATELET COUNT, AUTOMATED 248 10^3/uL (150-450); RED BLOOD COUNT 5.77 10^6/uL (4.30-6.10); WHITE BLOOD COUNT 9.1 10^3/uL (4.0-10.0)
[2021-08-06 14:42] LABS: CALCIUM LEVEL 9.5 MG/DL (8.5-10.1); CREATININE FOR GFR 1.44 MG/DL (0.70-1.30); GLOMERULAR FILTRATION RATE 54.8 (>56); POTASSIUM SERUM 4.2 MEQ/L (3.5-5.1)
[2021-08-06 15:26] LABS: THYROID STIMULATING HORMONE 3.29 uIU/ML (0.358-3.740)
[2021-08-06 16:09] LABS: INR 1.46; PROTHROMBIN TIME 18.2 SECONDS (12.7-14.5)
[2021-08-06 16:28] LABS: RSV AMPLIFICATION NEGATIVE (NEGATIVE)
[2021-08-06 16:32] LABS: DIGOXIN LEVEL 0.2 NG/ML (0.5-2.0); THYROID STIMULATING HORMONE 2.07 uIU/ML (0.358-3.740)
[2021-08-06] MEDS ORDERED: WARFARIN SOD 5MG TAB PO ONE (17:00)
[2021-08-06] MEDS ORDERED: DIGOXIN INJ 0.5 MG/2 ML AMP (J1160) IV ONE (17:40)
[2021-08-06] MEDS ORDERED: SUMAtriptan SUCCINATE 25 MG TAB PO PRN (18:30)
[2021-08-06] MEDS ORDERED: METO1TAB33 PO (18:33)
[2021-08-06] MEDS ORDERED: DIGO0.123 PO (18:33)
[2021-08-06] MEDS ORDERED: WARF-18 PO (18:33)
[2021-08-06] MEDS ORDERED: HOME MED LIST COMPLETE! XX SCH (18:35)
[2021-08-06] MEDS ORDERED: ISOVUE-370 76% 100ML VIAL As Ordered ONE (19:51)
[2021-08-06] MEDS ORDERED: FERROUS GLUCONATE 324 MG TAB PO SCH (21:00)
[2021-08-06] MEDS ORDERED: ATORVASTATIN 20 MG TAB PO SCH (21:00)
[2021-08-06] MEDS ORDERED: METOPROLOL SUCC (TopROL XL) 100MG *XL* TAB PO SCH (21:00)
[2021-08-06] MEDS ORDERED: AMITRIPTYLINE 50 MG TAB PO SCH (21:00)
[2021-08-06 21:26] VITALS: BP 135/73
[2021-08-06] MEDS: oxyCODONE 5MG TAB PO SCH (21:26)
[2021-08-06 21:55] VITALS: BP 131/93
[2021-08-06] MEDS: GABAPENTIN 400MG CAP PO SCH (22:35)
[2021-08-06] MEDS: NORCO, ANEXSIA 5/325MG TABLET (HYDROcodone/ACETAMINOPHEN) PO PRN (22:36)
[2021-08-07] VITALS: BP 100/60
[2021-08-07 04:00] VITALS: BP 121/87
[2021-08-07 06:07] LABS: HEMATOCRIT 47.8 % (42.0-52.0); HEMOGLOBIN 14.7 g/dl (13.5-17.5); MEAN CORPUSCULAR HEMOGLOBIN 28.4 pg (27.0-33.0); MEAN CORPUSCULAR HGB CONC 30.8 g/dl (32.0-36.5); MEAN CORPUSCULAR VOLUME 92.3 fl (80.0-96.0); PLATELET COUNT, AUTOMATED 200 10^3/uL (150-450); RED BLOOD COUNT 5.18 10^6/uL (4.30-6.10); WHITE BLOOD COUNT 6.9 10^3/uL (4.0-10.0)
[2021-08-07 06:29] LABS: BLOOD UREA NITROGEN 13 MG/DL (7-18); CARBON DIOXIDE LEVEL 23 MEQ/L (21-32); CHLORIDE LEVEL 107 MEQ/L (98-107); CREATININE FOR GFR 1.28 MG/DL (0.70-1.30); GLOMERULAR FILTRATION RATE > 60.0 (>56); GLUCOSE, FASTING 74 MG/DL (70-100); POTASSIUM SERUM 4.3 MEQ/L (3.5-5.1); SODIUM LEVEL 139 MEQ/L (136-145)
[2021-08-07 06:32] LABS: INR 1.54; PROTHROMBIN TIME 18.9 SECONDS (12.7-14.5)
[2021-08-07] MEDS ORDERED: FLUBLOK(EGG FREE)(QUAD)INFLUENZA VACC 0.5ML SYRINGE 18YRS & OLDER IM SCH (06:40)
[2021-08-07 08:00] VITALS: BP 123/80
[2021-08-07] MEDS: GABAPENTIN 400MG CAP PO SCH ×2 (08:33→15:15)
[2021-08-07] MEDS: oxyCODONE 5MG TAB PO SCH (08:33)
[2021-08-07] MEDS ORDERED: ENTRESTO 24-26MG TABLET (SACUBITRIL/VALSARTAN) PO SCH (09:00)
[2021-08-07] MEDS ORDERED: DIGOXIN 0.125 MG TAB PO SCH (09:00)
[2021-08-07 12:00] VITALS: BP 102/68
[2021-08-07] MEDS: NORCO, ANEXSIA 5/325MG TABLET (HYDROcodone/ACETAMINOPHEN) PO PRN (12:24)
[2021-08-07] MEDS ORDERED: PILL CUTTER 1 EACH XX PRN (13:15)
[2021-08-07] MEDS: APIXABAN 5 MG TAB (ELIQUIS) PO SCH ×2 (13:16→17:01)
[2021-08-07 16:00] VITALS: BP 102/59
[2021-08-07] MEDS ORDERED: METO1TAB32 PO (17:07)
[2021-08-07] MEDS ORDERED: ELIQ5TAB PO (17:07)
[2021-08-07] MEDS ORDERED: DIGO0.253 PO (17:07)
[2021-08-07] MEDS ORDERED: METOPROLOL SUCC *XL* 25MG TAB (TopROL *XL*) PO SCH (21:00)
[2021-08-08] MEDS ORDERED: DIGOXIN 0.25 MG TAB PO SCH (09:00)
[2021-08-08] MEDS ORDERED: ENTR1TAB PO (14:53)
== END 2021-08-07 18:15 | disposition home or self-care (01) | DRG 309 ==
LOC: M ED 13:26 → M ED INP 18:17 → ENRESERV 20:55 → M PCU 22:01
PROVIDERS: ADMIT Internal Medicine; ATTEND Internal Medicine
DX: I48.3 Typical atrial flutter (principal); I50.42 Chronic combined systolic (congestive) and diastolic (congestive) heart failure; G90.50 Complex regional pain syndrome I, unspecified; E78.5 Hyperlipidemia, unspecified; J44.9 Chronic obstructive pulmonary disease, unspecified; N18.9 Chronic kidney disease, unspecified; I44.2 Atrioventricular block, complete; Z95.3 Presence of xenogenic heart valve; Z90.49 Acquired absence of other specified parts of digestive tract; Z87.442 Personal history of urinary calculi; Z87.891 Personal history of nicotine dependence; Z91.14 Patient's other noncompliance with medication regimen; Z20.822 Contact with and (suspected) exposure to COVID-19; Z79.01 Long term (current) use of anticoagulants; Z79.899 Other long term (current) drug therapy; Z79.891 Long term (current) use of opiate analgesic; Z88.5 Allergy status to narcotic agent; Z95.0 Presence of cardiac pacemaker

== ENCOUNTER → 2021-09-25 | Outpatient (CLI) | payer OTHER ==
[~2021-09-25] MED LIST changes: +DIGO0.253 PO; +ELIQ5TAB PO; +ENTR1TAB PO; +METO1TAB32 PO; +WARF-18 PO
== END ==
LOC: M SOG 14:21
PROVIDERS: ATTEND Orthopaedic Surgery
DX: M25.512 Pain in left shoulder (principal)

== ENCOUNTER 2022-07-27 23:26 | Inpatient (IN) | payer OTHER ==
[~2022-07-27] VITALS: Ht 175.3 cm; Wt 60.2 kg
[2022-07-28] MEDS ORDERED: KETOROLAC 30 MG/ML 1ML VIAL IV ONE (02:00)
[2022-07-28] MEDS ORDERED: KETOROLAC 60MG 2ML VIAL IM ONE (03:00)
[2022-07-28] MEDS ORDERED: NORCO, ANEXSIA 5/325MG TABLET (HYDROcodone/ACETAMINOPHEN) PO ONE (03:10)
[2022-07-28 03:32] LABS: BASO % 0.3 % (0.0-1.0); EOS # 0.1 10^3/uL (0.0-0.5); EOS % 0.4 % (0.0-3.0); HEMOGLOBIN 14.2 g/dl (13.5-17.5); LYMPH # 2.7 10^3/uL (1.5-5.0); MEAN CORPUSCULAR HEMOGLOBIN 31.1 pg (27.0-33.0); MEAN CORPUSCULAR HGB CONC 32.3 g/dl (32.0-36.5); MEAN CORPUSCULAR VOLUME 96.5 fl (80.0-96.0); MONO # 0.9 10^3/uL (0.0-0.8); MONO % 7.1 % (2.0-8.0); NEUTROPHILS # 9.3 10^3/uL (1.5-8.5); NEUTROPHILS % 70.8 % (36.0-66.0); PLATELET COUNT, AUTOMATED 191 10^3/uL (150-450); RED BLOOD COUNT 4.56 10^6/uL (4.30-6.10); WHITE BLOOD COUNT 13.1 10^3/uL (4.0-10.0)
[2022-07-28 04:17] LABS: CK-MB VALUE MASS 1.2 NG/ML (<3.6); MB/CK RELATIVE INDEX 1.88 (< OR =4)
[2022-07-28 04:34] LABS: ALBUMIN 3.7 GM/DL (3.2-5.2); BILIRUBIN,TOTAL 0.3 MG/DL (0.2-1.0); CALCIUM LEVEL 8.8 MG/DL (8.5-10.1); CREATININE FOR GFR 2.62 MG/DL (0.70-1.30); GLOMERULAR FILTRATION RATE 27.4 (>56); MAGNESIUM LEVEL 1.7 MG/DL (1.8-2.4); TOTAL PROTEIN 7.4 GM/DL (6.4-8.2)
[2022-07-28 04:55] LABS: THYROID STIMULATING HORMONE 0.637 uIU/ML (0.358-3.740); THYROXINE (T4) 10.6 UG/DL (4.5-12.0)
[2022-07-28] MEDS ORDERED: NS 1,000 ML IV ONE ×2 (05:05)
[2022-07-28] MEDS ORDERED: LR 1,000 ML IV ONE (05:35)
[2022-07-28] MEDS ORDERED: PERCOCET 5MG/325MG TAB PO PRN (05:35)
[2022-07-28] MEDS ORDERED: ACETAMINOPHEN TAB 650MG DOSE (2X325MG) PO PRN (05:35)
[2022-07-28] MEDS ORDERED: ALBU8.5H INH (06:07)
[2022-07-28] MEDS ORDERED: METO200T28 PO (06:07)
[2022-07-28] MEDS ORDERED: SPIR1AER INH (06:07)
[2022-07-28] MEDS ORDERED: HOME MED LIST COMPLETE! XX SCH (06:10)
[2022-07-28 06:56] VITALS: BP 138/86
[2022-07-28] MEDS ORDERED: MAG SULF 1GM/100ML (MAG RUN) 1 GM in IV 1 EA IV ONE (07:00)
[2022-07-28 07:53] LABS: HEMOGLOBIN A1c 5.3 %
[2022-07-28 08:15] LABS: CHOLESTEROL LEVEL 207 MG/DL (<200); CHOLESTEROL RISK RATIO 8.625 (<5); HDL CHOLESTEROL 24 MG/DL (>40); NON-HDL-C 183 MG/DL; TRIGLYCERIDES LEVEL 452 MG/DL (<150)
[2022-07-28 08:23] LABS: INR 1.14; PROTHROMBIN TIME 14.9 SECONDS (12.5-14.5)
[2022-07-28] MEDS: APIXABAN 5 MG TAB (ELIQUIS) PO SCH ×2 (08:49→20:06)
[2022-07-28] MEDS: PERCOCET 5MG/325MG TAB PO PRN ×2 (08:49→16:31)
[2022-07-28 09:16] LABS: BASO % 0.4 % (0.0-1.0); EOS # 0.1 10^3/uL (0.0-0.5); EOS % 0.5 % (0.0-3.0); HEMOGLOBIN 13.5 g/dl (13.5-17.5); MEAN CORPUSCULAR HEMOGLOBIN 31.1 pg (27.0-33.0); MEAN CORPUSCULAR HGB CONC 31.4 g/dl (32.0-36.5); MEAN CORPUSCULAR VOLUME 99.1 fl (80.0-96.0); MONO % 8.9 % (2.0-8.0); NEUTROPHILS # 7.1 10^3/uL (1.5-8.5); NEUTROPHILS % 62.8 % (36.0-66.0); PLATELET COUNT, AUTOMATED 162 10^3/uL (150-450); RED BLOOD COUNT 4.34 10^6/uL (4.30-6.10); WHITE BLOOD COUNT 11.3 10^3/uL (4.0-10.0)
[2022-07-28 09:31] LABS: ALBUMIN 3.4 GM/DL (3.2-5.2); ALT/SGPT 18 U/L (12-78); BILIRUBIN,TOTAL 0.4 MG/DL (0.2-1.0); BLOOD UREA NITROGEN 53 MG/DL (7-18); CALCIUM LEVEL 8.5 MG/DL (8.5-10.1); CARBON DIOXIDE LEVEL 17 MEQ/L (21-32); CHLORIDE LEVEL 110 MEQ/L (98-107); CREATININE FOR GFR 2.34 MG/DL (0.70-1.30); GLOMERULAR FILTRATION RATE 31.2 (>56); GLUCOSE, FASTING 98 MG/DL (70-100); MAGNESIUM LEVEL 1.9 MG/DL (1.8-2.4); POTASSIUM SERUM 3.8 MEQ/L (3.5-5.1); SODIUM LEVEL 135 MEQ/L (136-145); TOTAL PROTEIN 6.4 GM/DL (6.4-8.2)
[2022-07-28] MEDS ORDERED: SUMAtriptan SUCCINATE 25 MG TAB PO PRN (09:40)
[2022-07-28] MEDS: FERROUS GLUCONATE 324 MG TAB PO SCH (10:35)
[2022-07-28] MEDS: GABAPENTIN 300 MG CAP PO SCH ×3 (10:35→20:06)
[2022-07-28] MEDS: METOPROLOL SUCC (TopROL XL) 100MG *XL* TAB PO SCH (10:36)
[2022-07-28 14:00] VITALS: BP 122/85
[2022-07-28] MEDS: FENOFIBRATE 48MG TABLET (TRICOR) PO SCH (14:22)
[2022-07-28 14:37] LABS: APPEARANCE, URINE MANUAL CLEAR (CLEAR); BILIRUBIN, URINE MANUAL NEGATIVE (NEGATIVE); BLOOD URINE MANUAL NEGATIVE (NEGATIVE); COLOR, URINE MANUAL YELLOW (YELLOW); GLUCOSE, URINE (UA) MANUAL NEGATIVE (NEGATIVE); KETONE, URINE MANUAL NEGATIVE (NEGATIVE); LEUKOCYTE ESTERASE, URINE MAN NEGATIVE (NEGATIVE); NITRITE, URINE MANUAL NEGATIVE (NEGATIVE); PROTEIN, URINE MANUAL 1+ mg/dL (NEGATIVE); UROBILINOGEN, URINE MANUAL NORMAL (NORMAL)
[2022-07-28 15:32] LABS: CREATININE,RANDOM URINE 134.7 MG/DL; TOTAL PROTEIN,RANDOM URINE 49.1 MG/DL (0.0-14.0)
[2022-07-28 16:02] LABS: RBC, URINE 0-1 /hpf (0-3); SQUAMOUS EPITHELIAL CELL URINE SMALL AMOUNT /hpf (SMALL AMT)
[2022-07-28 16:03] LABS: BACTERIA, URINE SMALL AMOUNT
[2022-07-28] MEDS: ASPIRIN 81MG ENTERIC TABLET PO SCH (20:06)
[2022-07-28] MEDS ORDERED: AMITRIPTYLINE 50 MG TAB PO SCH (21:00)
[2022-07-28] MEDS ORDERED: ATORVASTATIN 20 MG TAB PO SCH (21:00)
[2022-07-28 22:00] VITALS: BP 105/55
[2022-07-29 06:00] VITALS: BP 136/95
[2022-07-29 06:02] LABS: HEMATOCRIT 43.4 % (42.0-52.0); HEMOGLOBIN 13.8 g/dl (13.5-17.5); MEAN CORPUSCULAR HEMOGLOBIN 31.2 pg (27.0-33.0); MEAN CORPUSCULAR HGB CONC 31.8 g/dl (32.0-36.5); MEAN CORPUSCULAR VOLUME 98.2 fl (80.0-96.0); PLATELET COUNT, AUTOMATED 133 10^3/uL (150-450); RED BLOOD COUNT 4.42 10^6/uL (4.30-6.10); WHITE BLOOD COUNT 7.3 10^3/uL (4.0-10.0)
[2022-07-29 06:49] LABS: BLOOD UREA NITROGEN 30 MG/DL (9-23); CALCIUM LEVEL 8.8 MG/DL (8.5-10.1); CARBON DIOXIDE LEVEL 22 MMOL/L (20-31); CHLORIDE LEVEL 112 MMOL/L (98-107); CREATININE FOR GFR 1.22 MG/DL (0.70-1.30); GLOMERULAR FILTRATION RATE > 60.0 (>56); GLUCOSE, FASTING 95 MG/DL (60-100); MAGNESIUM LEVEL 1.8 MG/DL (1.8-2.4); POTASSIUM SERUM 4.4 MMOL/L (3.5-5.1); SODIUM LEVEL 142 MMOL/L (136-145)
[2022-07-29] MEDS ORDERED: oxyCODONE 5MG TAB PO PRN (08:05)
[2022-07-29] MEDS ORDERED: AUGMENTIN 875 MG TAB PO SCH (09:00)
[2022-07-29 09:08] VITALS: BP 126/83
[2022-07-29 09:15] VITALS: BP 126/83
[2022-07-29] MEDS: ASPIRIN 81MG ENTERIC TABLET PO SCH (09:39)
[2022-07-29 09:41] VITALS: BP 126/83
[2022-07-29] MEDS: METOPROLOL SUCC (TopROL XL) 100MG *XL* TAB PO SCH (09:41)
[2022-07-29] MEDS: GABAPENTIN 300 MG CAP PO SCH (09:42)
[2022-07-29] MEDS: FERROUS GLUCONATE 324 MG TAB PO SCH (09:42)
[2022-07-29] MEDS: APIXABAN 5 MG TAB (ELIQUIS) PO SCH (09:42)
[2022-07-29] MEDS: FENOFIBRATE 48MG TABLET (TRICOR) PO SCH (09:43)
[2022-07-29 09:53] VITALS: BP 126/83
[2022-07-29] MEDS ORDERED: AMOX875T2 PO (11:39)
[2022-07-29] MEDS ORDERED: ASPI81TAEC PO (11:39)
[2022-07-29] MEDS ORDERED: ELIQ5TAB PO (11:39)
[2022-07-29] MEDS ORDERED: FENO48TA8 PO (11:39)
[2022-07-29] MEDS ORDERED: OXYC1TAB23 PO (12:24)
[2022-07-29] MEDS: PERCOCET 5MG/325MG TAB PO PRN (14:14)
== END 2022-07-29 14:17 | disposition home or self-care (01) | DRG 683 ==
LOC: M ED 23:26 → M ED INP 07-28 05:33 → ENRESERV 07-28 05:55 → M MSPAV 07-28 07:00
PROVIDERS: ADMIT Family Medicine; ATTEND Internal Medicine
PROC: B246ZZZ Ultrasonography of Right and Left Heart (ICD-10-PCS; principal; 2022-07-28)
DX: N17.9 Acute kidney failure, unspecified (principal); I50.22 Chronic systolic (congestive) heart failure; I48.0 Paroxysmal atrial fibrillation; Z95.0 Presence of cardiac pacemaker; I34.2 Nonrheumatic mitral (valve) stenosis; Z95.2 Presence of prosthetic heart valve; J44.9 Chronic obstructive pulmonary disease, unspecified; K21.9 Gastro-esophageal reflux disease without esophagitis; M54.9 Dorsalgia, unspecified; G89.29 Other chronic pain; F17.210 Nicotine dependence, cigarettes, uncomplicated; R55 Syncope and collapse; S92.532A Displaced fracture of distal phalanx of left lesser toe(s), initial encounter for closed fracture; W01.0XXA Fall on same level from slipping, tripping and stumbling without subsequent striking against object, initial encounter; Y92.9 Unspecified place or not applicable; E86.0 Dehydration; E78.5 Hyperlipidemia, unspecified; E78.1 Pure hyperglyceridemia; G43.909 Migraine, unspecified, not intractable, without status migrainosus; F39 Unspecified mood [affective] disorder; Z79.01 Long term (current) use of anticoagulants; Z79.899 Other long term (current) drug therapy; Z79.891 Long term (current) use of opiate analgesic; Z88.5 Allergy status to narcotic agent

== ENCOUNTER → 2022-08-11 | Outpatient (CLI) | payer OTHER ==
[~2022-08-11] MED LIST changes: +AMOX875T2 PO; +ASPI81TAEC PO; +FENO48TA8 PO; +HYDR-4517 PO; +METO200T28 PO; +OXYC1TAB23 PO; +SPIR1AER INH
== END ==
LOC: M SOG 08:58
PROVIDERS: ATTEND Orthopaedic Surgery
DX: M79.672 Pain in left foot (principal)

== ENCOUNTER 2022-08-12 03:05 | Inpatient (IN) | payer OTHER ==
[~2022-08-12] VITALS: Ht 175.3 cm; Wt 65.9 kg
[~2022-08-12 03:05] MED LIST changes: -HYDR-4517 PO
[2022-08-12 03:38] LABS: HEMATOCRIT 49.7 % (42.0-52.0); HEMOGLOBIN 15.8 g/dl (13.5-17.5); MEAN CORPUSCULAR HEMOGLOBIN 31.2 pg (27.0-33.0); MEAN CORPUSCULAR HGB CONC 31.8 g/dl (32.0-36.5); MEAN CORPUSCULAR VOLUME 98.2 fl (80.0-96.0); PLATELET COUNT, AUTOMATED 240 10^3/uL (150-450); RED BLOOD COUNT 5.06 10^6/uL (4.30-6.10); WHITE BLOOD COUNT 12.6 10^3/uL (4.0-10.0)
[2022-08-12] MEDS ORDERED: ISOVUE-370 76% 100ML VIAL As Ordered ONE (04:07)
[2022-08-12 04:08] LABS: CARBON DIOXIDE LEVEL 23 MMOL/L (20-31); CHLORIDE LEVEL 105 MMOL/L (98-107); POTASSIUM SERUM 3.8 MMOL/L (3.5-5.1); SODIUM LEVEL 137 MMOL/L (136-145)
[2022-08-12 04:09] LABS: ALBUMIN 4.5 G/DL (3.2-5.2)
[2022-08-12 04:14] LABS: BLOOD UREA NITROGEN 21 MG/DL (9-23); CALCIUM LEVEL 9.5 MG/DL (8.5-10.1); ETHYL ALCOHOL (ETHANOL) 0.003 % (0.000-0.010); GLUCOSE, FASTING 169 MG/DL (60-100)
[2022-08-12 04:14] LABS: RSV AMPLIFICATION NEGATIVE (NEGATIVE)
[2022-08-12 04:15] LABS: ALKALINE PHOSPHATASE 135 U/L (46-116)
[2022-08-12 04:16] LABS: ACETAMINOPHEN LEVEL < 2.0 UG/ML (10.0-20.0); ALT/SGPT 31 U/L (7.0-40); AST/SGOT 30 U/L (<34); BILIRUBIN,DIRECT 0.2 MG/DL (<0.4); BILIRUBIN,TOTAL 0.6 MG/DL (0.3-1.2); CREATININE FOR GFR 1.66 MG/DL (0.70-1.30); GLOMERULAR FILTRATION RATE 46.4 (>56); SALICYLATE LEVEL < 3.0 MG/DL (<30); TOTAL PROTEIN 8.3 G/DL (5.7-8.2)
[2022-08-12 04:50] LABS: AMPHETAMINES LEVEL URINE NEGATIVE (NEGATIVE); BENZODIAZEPINES URINE NEGATIVE (NEGATIVE); CANNABINOIDS URINE NEGATIVE (NEGATIVE); PHENCYCLIDINE URINE NEGATIVE (NEGATIVE)
[2022-08-12 04:51] LABS: BARBITURATES URINE NEGATIVE (NEGATIVE); COCAINE METABOLITE URINE NEGATIVE (NEGATIVE); METHADONE URINE NEGATIVE (NEGATIVE); OPIATES URINE NEGATIVE (NEGATIVE)
[2022-08-12] MEDS ORDERED: ELIQ5TAB PO (05:13)
[2022-08-12] MEDS ORDERED: HOME MED LIST COMPLETE! XX SCH (05:15)
[2022-08-12] MEDS ORDERED: CALCIUM GLUCONATE 1,000MG/10ML VIAL (100MG/ML) (J0610) IV ONE (05:40)
[2022-08-12] MEDS ORDERED: PERCOCET 5MG/325MG TAB PO ONE (06:05)
[2022-08-12] MEDS: NICOTINE 21MG/24HR 1 EA TRANSDERMAL TD SCH (09:00)
[2022-08-12] MEDS ORDERED: OXYC-1 PO (14:34)
[2022-08-12] MEDS ORDERED: HYDR-4517 PO (14:34)
[2022-08-12] MEDS ORDERED: MAALOX 30 ML SUSP *UDC PO PRN (14:45)
[2022-08-12] MEDS ORDERED: ALBUTEROL 90 MCG/ACT 8GM HFA INHALER INH PRN (14:45)
[2022-08-12] MEDS ORDERED: MOM 30ML SUSPENSION UDC PO PRN (14:45)
[2022-08-12] MEDS ORDERED: IBUPROFEN 400MG TAB PO PRN (14:45)
[2022-08-12] MEDS ORDERED: SUMAtriptan SUCCINATE 25 MG TAB PO PRN (14:50)
[2022-08-12] MEDS ORDERED: oxyCODONE 5MG TAB PO ONE (14:50)
[2022-08-12] MEDS ORDERED: GABAPENTIN 400MG CAP PO SCH (16:00)
[2022-08-12] MEDS: GABAPENTIN 400MG CAP PO SCH ×2 (16:00→20:45)
[2022-08-12 17:00] VITALS: BP 132/99
[2022-08-12] MEDS: APIXABAN 5 MG TAB (ELIQUIS) PO SCH (20:45)
[2022-08-12] MEDS: oxyCODONE 5MG TAB PO PRN (20:45)
[2022-08-12] MEDS: AMITRIPTYLINE 50 MG TAB PO SCH (20:53)
[2022-08-12] MEDS: SUMAtriptan SUCCINATE 25 MG TAB PO PRN (20:54)
[2022-08-12] MEDS: METOPROLOL SUCC (TopROL XL) 100MG *XL* TAB PO SCH (20:54)
[2022-08-12] MEDS ORDERED: APIXABAN 5 MG TAB (ELIQUIS) PO SCH (21:00)
[2022-08-12] MEDS ORDERED: METOPROLOL SUCC (TopROL XL) 100MG *XL* TAB PO SCH (21:00)
[2022-08-12] MEDS ORDERED: AMITRIPTYLINE 50 MG TAB PO SCH (21:00)
[2022-08-13 06:28] VITALS: BP 113/72
[2022-08-13] MEDS ORDERED: METOPROLOL SUCC (TopROL XL) 100MG *XL* TAB PO SCH (09:00)
[2022-08-13] MEDS: APIXABAN 5 MG TAB (ELIQUIS) PO SCH ×2 (09:00→21:00)
[2022-08-13] MEDS: NICOTINE 21MG/24HR 1 EA TRANSDERMAL TD SCH (09:00)
[2022-08-13] MEDS: DULoxetine 20 MG CAP (CYMBALTA) PO SCH (09:00)
[2022-08-13] MEDS: GABAPENTIN 400MG CAP PO SCH ×3 (09:00→21:27)
[2022-08-13] MEDS: oxyCODONE 5MG TAB PO PRN ×2 (09:11→21:29)
[2022-08-13] MEDS: NORCO, ANEXSIA 5/325MG TABLET (HYDROcodone/ACETAMINOPHEN) PO PRN (13:10)
[2022-08-13 18:16] VITALS: BP 134/80
[2022-08-13 18:17] VITALS: BP 134/80
[2022-08-13] MEDS: SUMAtriptan SUCCINATE 25 MG TAB PO PRN (19:56)
[2022-08-13] MEDS: CIPRODEX OTIC SUSP 7.5ML AD SCH (21:00)
[2022-08-13] MEDS: AMITRIPTYLINE 50 MG TAB PO SCH (21:27)
[2022-08-13] MEDS: METOPROLOL SUCC (TopROL XL) 100MG *XL* TAB PO SCH (21:27)
[2022-08-14] MEDS: GABAPENTIN 400MG CAP PO SCH ×3 (09:00→20:48)
[2022-08-14] MEDS: APIXABAN 5 MG TAB (ELIQUIS) PO SCH ×2 (09:00→20:50)
[2022-08-14] MEDS: DULoxetine 20 MG CAP (CYMBALTA) PO SCH (09:00)
[2022-08-14] MEDS: CIPRODEX OTIC SUSP 7.5ML AD SCH ×2 (09:00→20:50)
[2022-08-14] MEDS: NICOTINE 21MG/24HR 1 EA TRANSDERMAL TD SCH (09:00)
[2022-08-14] MEDS: oxyCODONE 5MG TAB PO PRN ×2 (09:03→20:51)
[2022-08-14] MEDS: NORCO, ANEXSIA 5/325MG TABLET (HYDROcodone/ACETAMINOPHEN) PO PRN ×2 (13:03→18:33)
[2022-08-14 18:11] VITALS: BP 100/65
[2022-08-14] MEDS: SUMAtriptan SUCCINATE 25 MG TAB PO PRN (20:50)
[2022-08-14] MEDS: AMITRIPTYLINE 50 MG TAB PO SCH (20:50)
[2022-08-14] MEDS: METOPROLOL SUCC (TopROL XL) 100MG *XL* TAB PO SCH (20:50)
[2022-08-15 06:00] VITALS: BP 121/86
[2022-08-15] MEDS: NICOTINE 21MG/24HR 1 EA TRANSDERMAL TD SCH (09:00)
[2022-08-15] MEDS: APIXABAN 5 MG TAB (ELIQUIS) PO SCH ×2 (09:00→20:34)
[2022-08-15] MEDS: CIPRODEX OTIC SUSP 7.5ML AD SCH ×3 (09:00→20:34)
[2022-08-15] MEDS: DULoxetine 20 MG CAP (CYMBALTA) PO SCH (09:00)
[2022-08-15] MEDS: GABAPENTIN 400MG CAP PO SCH ×3 (09:08→21:05)
[2022-08-15] MEDS: oxyCODONE 5MG TAB PO PRN ×2 (09:11→21:06)
[2022-08-15] MEDS: NORCO, ANEXSIA 5/325MG TABLET (HYDROcodone/ACETAMINOPHEN) PO PRN ×2 (13:04→18:36)
[2022-08-15 18:17] VITALS: BP 128/58
[2022-08-15] MEDS: METOPROLOL SUCC (TopROL XL) 100MG *XL* TAB PO SCH (21:05)
[2022-08-15] MEDS: AMITRIPTYLINE 50 MG TAB PO SCH (21:05)
[2022-08-15] MEDS: hydrOXYzine 50 MG TAB PO PRN (23:13)
[2022-08-16 06:57] VITALS: BP 121/73
[2022-08-16] MEDS: APIXABAN 5 MG TAB (ELIQUIS) PO SCH ×2 (08:46→20:13)
[2022-08-16] MEDS: DULoxetine 20 MG CAP (CYMBALTA) PO SCH (08:46)
[2022-08-16] MEDS: NICOTINE 21MG/24HR 1 EA TRANSDERMAL TD SCH (08:47)
[2022-08-16] MEDS: GABAPENTIN 400MG CAP PO SCH ×3 (08:48→20:15)
[2022-08-16] MEDS: CIPRODEX OTIC SUSP 7.5ML AD SCH ×2 (08:49→20:13)
[2022-08-16] MEDS: oxyCODONE 5MG TAB PO PRN ×2 (09:08→18:04)
[2022-08-16] MEDS: hydrOXYzine 50 MG TAB PO PRN ×2 (13:42→20:15)
[2022-08-16] MEDS: NORCO, ANEXSIA 5/325MG TABLET (HYDROcodone/ACETAMINOPHEN) PO PRN ×2 (13:44→21:23)
[2022-08-16 18:00] VITALS: BP 113/71
[2022-08-16] MEDS: AMITRIPTYLINE 50 MG TAB PO SCH (20:15)
[2022-08-16 20:17] VITALS: BP 126/75
[2022-08-16] MEDS: METOPROLOL SUCC (TopROL XL) 100MG *XL* TAB PO SCH (20:17)
[2022-08-17 06:53] VITALS: BP 142/86
[2022-08-17] MEDS: APIXABAN 5 MG TAB (ELIQUIS) PO SCH (08:07)
[2022-08-17] MEDS: DULoxetine 20 MG CAP (CYMBALTA) PO SCH (08:07)
[2022-08-17] MEDS: NICOTINE 21MG/24HR 1 EA TRANSDERMAL TD SCH (08:08)
[2022-08-17] MEDS: CIPRODEX OTIC SUSP 7.5ML AD SCH (08:08)
[2022-08-17] MEDS: oxyCODONE 5MG TAB PO PRN (08:12)
[2022-08-17] MEDS: GABAPENTIN 400MG CAP PO SCH (08:12)
[2022-08-17] MEDS: hydrOXYzine 50 MG TAB PO PRN (08:12)
[2022-08-17] MEDS ORDERED: GABA800T4 PO (09:42)
[2022-08-17] MEDS ORDERED: METO200T28 PO (09:42)
[2022-08-17] MEDS ORDERED: AMIT100TA PO (09:42)
[2022-08-17] MEDS ORDERED: ELIQ5TAB PO (09:42)
[2022-08-17] MEDS ORDERED: SUMA100T2 PO (09:42)
[2022-08-17] MEDS ORDERED: OXYC-1 PO (09:42)
[2022-08-17] MEDS ORDERED: ALBU8.5H INH (09:42)
[2022-08-17] MEDS ORDERED: HYDR-4517 PO (09:43)
[2022-08-17] MEDS ORDERED: NICO21PAT TD (09:43)
[2022-08-17] MEDS ORDERED: CIPR7.5D2 AD (09:43)
== END 2022-08-17 10:55 | disposition home or self-care (01) | DRG 881 ==
LOC: M ED 03:05 → M ED INP 14:44 → M PSY 16:54
PROVIDERS: ADMIT Psychiatry & Neurology Psychiatry; ATTEND Psychiatry & Neurology Psychiatry
DX: F32.A Depression, unspecified (principal); G90.522 Complex regional pain syndrome I of left lower limb; I44.2 Atrioventricular block, complete; F12.10 Cannabis abuse, uncomplicated; F17.200 Nicotine dependence, unspecified, uncomplicated; M54.50 Low back pain, unspecified; K21.9 Gastro-esophageal reflux disease without esophagitis; G43.909 Migraine, unspecified, not intractable, without status migrainosus; I73.9 Peripheral vascular disease, unspecified; H60.91 Unspecified otitis externa, right ear; E78.2 Mixed hyperlipidemia; S92.352D Displaced fracture of fifth metatarsal bone, left foot, subsequent encounter for fracture with routine healing; J44.9 Chronic obstructive pulmonary disease, unspecified; N18.9 Chronic kidney disease, unspecified; I48.0 Paroxysmal atrial fibrillation; Z87.442 Personal history of urinary calculi; Z91.52 Personal history of nonsuicidal self-harm; Z95.3 Presence of xenogenic heart valve; Z95.0 Presence of cardiac pacemaker; Z79.01 Long term (current) use of anticoagulants; Z79.899 Other long term (current) drug therapy; Z88.5 Allergy status to narcotic agent

== ENCOUNTER → 2022-09-01 | Outpatient (CLI) | payer OTHER ==
[~2022-09-01] MED LIST changes: +CIPR7.5D2 AD; +HYDR-4517 PO; +NICO21PAT TD
== END ==
LOC: M SOG 09:00
PROVIDERS: ATTEND Orthopaedic Surgery
DX: S92.352D Displaced fracture of fifth metatarsal bone, left foot, subsequent encounter for fracture with routine healing (principal); W18.30XD Fall on same level, unspecified, subsequent encounter

== ENCOUNTER 2022-09-04 03:55 | Inpatient (IN) | payer OTHER ==
[~2022-09-04] VITALS: Ht 175.3 cm; Wt 59.7 kg
[2022-09-04] MEDS ORDERED: NS 1,000 ML IV ONE (04:50)
[2022-09-04 04:56] LABS: BASO % 0.4 % (0.0-1.0); EOS # 0.1 10^3/uL (0.0-0.5); EOS % 0.8 % (0.0-3.0); HEMATOCRIT 43.8 % (42.0-52.0); HEMOGLOBIN 13.7 g/dl (13.5-17.5); LYMPH # 3.6 10^3/uL (1.5-5.0); LYMPH % 33.6 % (24.0-44.0); MEAN CORPUSCULAR HGB CONC 31.3 g/dl (32.0-36.5); MEAN CORPUSCULAR VOLUME 99.1 fl (80.0-96.0); MONO % 9.6 % (2.0-8.0); NEUTROPHILS % 55.3 % (36.0-66.0); PLATELET COUNT, AUTOMATED 190 10^3/uL (150-450); RED BLOOD COUNT 4.42 10^6/uL (4.30-6.10); WHITE BLOOD COUNT 10.8 10^3/uL (4.0-10.0)
[2022-09-04 05:19] LABS: CALCIUM LEVEL 9.4 MG/DL (8.5-10.1); CK-MB VALUE MASS 1.3 NG/ML (<3.6); CREATININE FOR GFR 2.26 MG/DL (0.70-1.30); GLOMERULAR FILTRATION RATE 32.5 (>56); MB/CK RELATIVE INDEX 1.42 (< OR =4); POTASSIUM SERUM 3.8 MMOL/L (3.5-5.1)
[2022-09-04 05:20] LABS: THYROID STIMULATING HORMONE 2.248 uIU/ML (0.55-4.78)
[2022-09-04 05:30] LABS: RSV AMPLIFICATION NEGATIVE (NEGATIVE)
[2022-09-04] MEDS ORDERED: LIDOCAINE 1% MDV 20ML VIAL SC ONE (06:25)
[2022-09-04] MEDS: NS 1,000 ML IV SCH ×2 (07:57→16:33)
[2022-09-04] MEDS ORDERED: cefTRIAXone SOD 1 GM in D5W MINI-BAG PLUS 50 ML IV ONE (08:15)
[2022-09-04] MEDS ORDERED: MORPHINE 4 MG/ML 1ML VIAL IV ONE (09:35)
[2022-09-04] MEDS ORDERED: AMIT100TA PO (09:42)
[2022-09-04] MEDS ORDERED: OXYC-1 PO (09:42)
[2022-09-04] MEDS ORDERED: VENTAER INH (09:42)
[2022-09-04] MEDS ORDERED: HYDR-4517 PO (09:42)
[2022-09-04] MEDS ORDERED: SUMA100T2 PO (09:42)
[2022-09-04] MEDS ORDERED: ELIQ5TAB PO (09:42)
[2022-09-04] MEDS ORDERED: GABA800T4 PO (09:42)
[2022-09-04] MEDS ORDERED: HOME MED LIST COMPLETE! XX SCH (09:45)
[2022-09-04] MEDS ORDERED: SUMAtriptan SUCCINATE 25 MG TAB PO PRN (10:20)
[2022-09-04] MEDS ORDERED: ALBUTEROL 90 MCG/ACT 8GM HFA INHALER INH PRN ×2 (10:20→10:40)
[2022-09-04] MEDS ORDERED: ACETAMINOPHEN TAB 650MG DOSE (2X325MG) PO PRN (10:20)
[2022-09-04 12:03] LABS: TOTAL PROTEIN 5.5 GM/DL (6.4-8.2)
[2022-09-04] MEDS: APIXABAN 5 MG TAB (ELIQUIS) PO SCH ×2 (12:37→21:52)
[2022-09-04] MEDS ORDERED: GABAPENTIN 400MG CAP PO SCH (16:00)
[2022-09-04] MEDS: GABAPENTIN 300 MG CAP PO SCH ×2 (16:32→21:52)
[2022-09-04] MEDS: oxyCODONE 5MG TAB PO PRN (20:11)
[2022-09-04] MEDS ORDERED: AMITRIPTYLINE 50 MG TAB PO SCH (21:00)
[2022-09-05] MEDS ORDERED: hydrOXYzine 50 MG TAB PO ONE (03:00)
[2022-09-05] MEDS ORDERED: NORCO, ANEXSIA 5/325MG TABLET (HYDROcodone/ACETAMINOPHEN) PO ONE (04:20)
[2022-09-05] MEDS: NS 1,000 ML IV SCH (04:29)
[2022-09-05 08:42] VITALS: BP 133/65
[2022-09-05] MEDS: GABAPENTIN 300 MG CAP PO SCH (08:44)
[2022-09-05] MEDS: APIXABAN 5 MG TAB (ELIQUIS) PO SCH (08:44)
[2022-09-05] MEDS: oxyCODONE 5MG TAB PO PRN (08:45)
[2022-09-05 08:47] LABS: HEMATOCRIT 39.2 % (42.0-52.0); HEMOGLOBIN 12.1 g/dl (13.5-17.5); MEAN CORPUSCULAR HEMOGLOBIN 31.2 pg (27.0-33.0); MEAN CORPUSCULAR HGB CONC 30.9 g/dl (32.0-36.5); PLATELET COUNT, AUTOMATED 132 10^3/uL (150-450); RED BLOOD COUNT 3.88 10^6/uL (4.30-6.10); WHITE BLOOD COUNT 6.3 10^3/uL (4.0-10.0)
[2022-09-05 09:12] LABS: MAGNESIUM LEVEL 1.5 MG/DL (1.8-2.4)
[2022-09-05 09:19] LABS: ALBUMIN 2.8 G/DL (3.2-5.2); ALKALINE PHOSPHATASE 100 U/L (46-116); ALT/SGPT 18 U/L (7.0-40); AST/SGOT 24 U/L (<34); BILIRUBIN,TOTAL 0.3 MG/DL (0.3-1.2); BLOOD UREA NITROGEN 15 MG/DL (9-23); CALCIUM LEVEL 8.7 MG/DL (8.5-10.1); CARBON DIOXIDE LEVEL 20 MMOL/L (20-31); CHLORIDE LEVEL 115 MMOL/L (98-107); CREATININE FOR GFR 1.18 MG/DL (0.70-1.30); GLOMERULAR FILTRATION RATE > 60.0 (>56); GLUCOSE, FASTING 88 MG/DL (60-100); POTASSIUM SERUM 4.9 MMOL/L (3.5-5.1); SODIUM LEVEL 141 MMOL/L (136-145); TOTAL PROTEIN 5.5 G/DL (5.7-8.2)
[2022-09-05] MEDS ORDERED: HYDR-4517 PO ×2 (10:20→10:48)
[2022-09-05] MEDS ORDERED: ACET1TAB55 PO ×2 (10:20→10:48)
[2022-09-05] MEDS ORDERED: GABA-282 PO ×2 (10:20→10:48)
[2022-09-05] MEDS ORDERED: LEVO1TAB40 PO ×2 (10:20→10:48)
[2022-09-05] MEDS ORDERED: OXYC-1 PO (10:48)
[2022-09-05] MEDS ORDERED: MAGNESIUM OXIDE 400MG TAB (MAG-OX) PO ONE (11:00)
[2022-09-05] MEDS ORDERED: cefTRIAXone SOD 2 GM in D5W MINI-BAG PLUS 50 ML IV SCH (12:00)
== END 2022-09-05 11:28 | disposition home or self-care (01) | DRG 312 ==
LOC: M ED 03:55 → M ED INP 10:20
PROVIDERS: ADMIT Family Medicine; ATTEND Family Medicine
DX: I95.1 Orthostatic hypotension (principal); I50.22 Chronic systolic (congestive) heart failure; N39.0 Urinary tract infection, site not specified; F17.210 Nicotine dependence, cigarettes, uncomplicated; I48.91 Unspecified atrial fibrillation; J44.9 Chronic obstructive pulmonary disease, unspecified; F32.A Depression, unspecified; G89.4 Chronic pain syndrome; Z95.0 Presence of cardiac pacemaker; Z95.3 Presence of xenogenic heart valve

== ENCOUNTER 2022-11-20 21:08 | Emergency (ER) | payer OTHER ==
[~2022-11-20] VITALS: Ht 175.3 cm; Wt 64.6 kg
[~2022-11-20 21:08] MED LIST changes: +ACET1TAB55 PO; +GABA-282 PO; +LEVO1TAB40 PO; +VENTAER INH
[2022-11-20 21:53] LABS: BASO % 0.5 % (0.0-1.0); EOS # 0.1 10^3/uL (0.0-0.5); EOS % 0.8 % (0.0-3.0); HEMATOCRIT 43.9 % (42.0-52.0); HEMOGLOBIN 13.6 g/dl (13.5-17.5); LYMPH % 24.6 % (24.0-44.0); MEAN CORPUSCULAR HEMOGLOBIN 30.2 pg (27.0-33.0); MEAN CORPUSCULAR VOLUME 97.3 fl (80.0-96.0); MONO # 0.5 10^3/uL (0.0-0.8); MONO % 6.2 % (2.0-8.0); NEUTROPHILS # 5.6 10^3/uL (1.5-8.5); NEUTROPHILS % 67.7 % (36.0-66.0); PLATELET COUNT, AUTOMATED 206 10^3/uL (150-450); RED BLOOD COUNT 4.51 10^6/uL (4.30-6.10); WHITE BLOOD COUNT 8.3 10^3/uL (4.0-10.0)
[2022-11-20] MEDS ORDERED: KETOROLAC 30 MG/ML 1ML VIAL IV ONE (21:55)
[2022-11-20] MEDS ORDERED: ONDANSETRON 4MG 2ML VIAL IV ONE (21:55)
[2022-11-20] MEDS ORDERED: NS 1,000 ML IV ONE (21:55)
[2022-11-20 22:11] LABS: LIPASE 32 U/L (12-53)
[2022-11-20 22:18] LABS: ALBUMIN 3.6 G/DL (3.2-5.2); ALKALINE PHOSPHATASE 138 U/L (46-116); ALT/SGPT 18 U/L (7.0-40); AST/SGOT 27 U/L (<34); BILIRUBIN,DIRECT 0.1 MG/DL (<0.4); BILIRUBIN,TOTAL 0.4 MG/DL (0.3-1.2); BLOOD UREA NITROGEN 16 MG/DL (9-23); CALCIUM LEVEL 8.8 MG/DL (8.5-10.1); CARBON DIOXIDE LEVEL 26 MMOL/L (20-31); CHLORIDE LEVEL 107 MMOL/L (98-107); CREATININE FOR GFR 1.22 MG/DL (0.70-1.30); GLOMERULAR FILTRATION RATE > 60.0 (>56); GLUCOSE, FASTING 96 MG/DL (60-100); POTASSIUM SERUM 4.9 MMOL/L (3.5-5.1); SODIUM LEVEL 139 MMOL/L (136-145); TOTAL PROTEIN 6.8 G/DL (5.7-8.2)
[2022-11-21] MEDS ORDERED: MORPHINE 4 MG/ML 1ML VIAL IV PRN (00:15)
[2022-11-21] MEDS ORDERED: PANTOPRAZOLE 40MG VIAL IV ONE (00:15)
[2022-11-21] MEDS: GASTROGRAFIN SOLUTION 30ML PO SCH ×2 (00:43→01:20)
[2022-11-21 01:00] VITALS: BP 173/89
[2022-11-21] MEDS ORDERED: ISOVUE-370 76% 100ML VIAL As Ordered ONE (01:37)
[2022-11-21] MEDS ORDERED: CARA1TAB6 PO (02:33)
[2022-11-21] MEDS ORDERED: PEPC1TAB5 PO (02:33)
[2022-11-21] MEDS ORDERED: OMEP40CA4 PO (02:33)
[2022-11-21] MEDS ORDERED: SUCRALFATE 1 GM TAB PO ONE (02:35)
[2022-11-21] MEDS ORDERED: FAMOTIDINE 20 MG TAB PO ONE (02:35)
== END 2022-11-21 02:43 | disposition home or self-care (01) ==
LOC: M ED 21:08
DX: R10.13 Epigastric pain (principal); I25.10 Atherosclerotic heart disease of native coronary artery without angina pectoris; I10 Essential (primary) hypertension; F17.200 Nicotine dependence, unspecified, uncomplicated; Z79.899 Other long term (current) drug therapy; Z88.5 Allergy status to narcotic agent
CPT/HCPCS: 36415; 74176; 74177; 80048; 80076; 81001; 83690; 85025; 96374; 96375; 99284; C9113; J2270; J2405; Q9963; Q9967

== ENCOUNTER → 2022-12-16 | Outpatient (REF) | payer OTHER ==
[~2022-12-16] MED LIST changes: +CARA1TAB6 PO; +OMEP40CA4 PO; +PEPC1TAB5 PO
[2022-12-16 18:50] LABS: BASO # 0.1 10^3/uL (0.0-0.2); BASO % 0.6 % (0.0-1.0); EOS # 0.2 10^3/uL (0.0-0.5); EOS % 2.2 % (0.0-3.0); HEMATOCRIT 39.8 % (42.0-52.0); HEMOGLOBIN 12.2 g/dl (13.5-17.5); LYMPH # 2.4 10^3/uL (1.5-5.0); LYMPH % 27.5 % (24.0-44.0); MEAN CORPUSCULAR HEMOGLOBIN 30.6 pg (27.0-33.0); MEAN CORPUSCULAR HGB CONC 30.7 g/dl (32.0-36.5); MEAN CORPUSCULAR VOLUME 99.7 fl (80.0-96.0); MONO # 0.6 10^3/uL (0.0-0.8); MONO % 6.8 % (2.0-8.0); NEUTROPHILS # 5.3 10^3/uL (1.5-8.5); NEUTROPHILS % 62.7 % (36.0-66.0); PLATELET COUNT, AUTOMATED 175 10^3/uL (150-450); RED BLOOD COUNT 3.99 10^6/uL (4.30-6.10); WHITE BLOOD COUNT 8.5 10^3/uL (4.0-10.0)
[2022-12-16 19:17] LABS: ALBUMIN 3.6 G/DL (3.2-5.2); BILIRUBIN,TOTAL 0.2 MG/DL (0.3-1.2); CALCIUM LEVEL 8.7 MG/DL (8.5-10.1); CHOLESTEROL RISK RATIO 3.17 (<5); CREATININE FOR GFR 1.53 MG/DL (0.70-1.30); GLOMERULAR FILTRATION RATE 50.7 (>56); HDL CHOLESTEROL 47.8 MG/DL (>40); NON-HDL-C 104.2 MG/DL; POTASSIUM SERUM 4.6 MMOL/L (3.5-5.1); TOTAL PROTEIN 6.5 G/DL (5.7-8.2)
[2022-12-18 23:07] LABS: PSA TOTAL 0.7 ng/mL (0.0-4.0)
== END ==
LOC: M LAB REF 16:27
PROVIDERS: ATTEND Nurse Practitioner Family
DX: R93.89 Abnormal findings on diagnostic imaging of other specified body structures (principal); N17.9 Acute kidney failure, unspecified; R89.9 Unspecified abnormal finding in specimens from other organs, systems and tissues; I10 Essential (primary) hypertension

== ENCOUNTER → 2023-02-05 | Outpatient (CLI) | payer OTHER | LOC: M RAD 10:31 | PROVIDERS: ATTEND Nurse Practitioner Family | DX: R93.89 Abnormal findings on diagnostic imaging of other specified body structures (principal) | CPT/HCPCS: 78306; A9503 ==

== ENCOUNTER → 2023-09-17 | Outpatient (REF) | payer OTHER ==
[2023-09-17 20:36] LABS: CREATININE, URINE 101.4 MG/DL; MAU/CREAT RATIO 22.6 MCG/MG (0.0-30.0)
== END ==
LOC: M LAB REF 19:27
PROVIDERS: ATTEND Nurse Practitioner Family
DX: R94.4 Abnormal results of kidney function studies (principal)

== ENCOUNTER → 2023-11-12 | Outpatient (REF) | payer OTHER ==
[2023-11-12 17:50] LABS: BASO % 0.5 % (0.0-1.0); EOS # 0.1 10^3/uL (0.0-0.5); EOS % 1.6 % (0.0-3.0); HEMATOCRIT 46.5 % (42.0-52.0); HEMOGLOBIN 14.5 g/dl (13.5-17.5); LYMPH # 2.6 10^3/uL (1.5-5.0); MEAN CORPUSCULAR HEMOGLOBIN 30.7 pg (27.0-33.0); MEAN CORPUSCULAR HGB CONC 31.2 g/dl (32.0-36.5); MEAN CORPUSCULAR VOLUME 98.3 fl (80.0-96.0); MONO # 0.6 10^3/uL (0.0-0.8); MONO % 7.5 % (2.0-8.0); NEUTROPHILS # 4.1 10^3/uL (1.5-8.5); NEUTROPHILS % 55.3 % (36.0-66.0); PLATELET COUNT, AUTOMATED 193 10^3/uL (150-450); RED BLOOD COUNT 4.73 10^6/uL (4.30-6.10); WHITE BLOOD COUNT 7.4 10^3/uL (4.0-10.0)
[2023-11-12 18:07] LABS: ALBUMIN 3.9 G/DL (3.2-5.2); BILIRUBIN,TOTAL 0.3 MG/DL (0.3-1.2); CALCIUM LEVEL 8.8 MG/DL (8.5-10.1); CREATININE FOR GFR 1.54 MG/DL (0.70-1.30); GLOMERULAR FILTRATION RATE 50.2 (>56); POTASSIUM SERUM 4.9 MMOL/L (3.5-5.1); TOTAL PROTEIN 6.9 G/DL (5.7-8.2)
== END ==
LOC: M LAB REF 16:30
PROVIDERS: ATTEND Family Medicine Addiction Medicine
DX: N18.9 Chronic kidney disease, unspecified (principal)

== ENCOUNTER 2023-12-04 16:52 | Emergency (ER) | payer OTHER ==
[~2023-12-04] VITALS: Ht 175.3 cm; Wt 63.8 kg
[2023-12-04] MEDS ORDERED: ALBU8.5H (17:08)
[2023-12-04] MEDS ORDERED: AMLO1TAB24 (17:08)
[2023-12-04] MEDS ORDERED: GABA600T4 (17:08)
[2023-12-04] MEDS ORDERED: FLUTISP (17:08)
[2023-12-04] MEDS ORDERED: OXYC-1 (17:08)
[2023-12-04 17:34] LABS: BASO % 0.6 % (0.0-1.0); EOS # 0.1 10^3/uL (0.0-0.5); EOS % 1.2 % (0.0-3.0); HEMATOCRIT 42.5 % (42.0-52.0); HEMOGLOBIN 13.9 g/dl (13.5-17.5); LYMPH # 2.2 10^3/uL (1.5-5.0); MEAN CORPUSCULAR HGB CONC 32.7 g/dl (32.0-36.5); MEAN CORPUSCULAR VOLUME 94.9 fl (80.0-96.0); MONO # 0.5 10^3/uL (0.0-0.8); MONO % 7.2 % (2.0-8.0); NEUTROPHILS # 3.7 10^3/uL (1.5-8.5); NEUTROPHILS % 56.8 % (36.0-66.0); PLATELET COUNT, AUTOMATED 223 10^3/uL (150-450); RED BLOOD COUNT 4.48 10^6/uL (4.30-6.10); WHITE BLOOD COUNT 6.5 10^3/uL (4.0-10.0)
[2023-12-04 18:08] LABS: CK-MB VALUE MASS < 1.0 NG/ML (<3.6)
[2023-12-04 18:09] LABS: LIPASE 49 U/L (12-53)
[2023-12-04 18:10] LABS: CPK CREATINE PHOSPHOKINASE 84 U/L (46-171); MB/CK RELATIVE INDEX 1.19 (< OR =4)
[2023-12-04 18:11] LABS: ALBUMIN 3.8 G/DL (3.2-5.2); ALKALINE PHOSPHATASE 119 U/L (46-116); ALT/SGPT 14 U/L (7.0-40); AST/SGOT 16 U/L (<34); BILIRUBIN,DIRECT 0.1 MG/DL (<0.4); BILIRUBIN,TOTAL 0.3 MG/DL (0.3-1.2); BLOOD UREA NITROGEN 17 MG/DL (9-23); CALCIUM LEVEL 9.3 MG/DL (8.5-10.1); CARBON DIOXIDE LEVEL 27 MMOL/L (20-31); CHLORIDE LEVEL 112 MMOL/L (98-107); CREATININE FOR GFR 1.45 MG/DL (0.70-1.30); GLOMERULAR FILTRATION RATE 53.8 (>56); GLUCOSE, FASTING 93 MG/DL (60-100); POTASSIUM SERUM 5.3 MMOL/L (3.5-5.1); SODIUM LEVEL 140 MMOL/L (136-145); TOTAL PROTEIN 6.9 G/DL (5.7-8.2)
[2023-12-04 18:12] LABS: FREE T4 1.06 NG/DL (0.89-1.76)
[2023-12-04] MEDS: oxyCODONE 5MG TAB PO ONE (18:22)
[2023-12-04 19:08] LABS: CK-MB VALUE MASS < 1.0 NG/ML (<3.6); MAGNESIUM LEVEL 1.8 MG/DL (1.8-2.4)
[2023-12-04 19:09] LABS: CPK CREATINE PHOSPHOKINASE 82 U/L (46-171); MB/CK RELATIVE INDEX 1.21 (< OR =4)
[2023-12-04 20:00] VITALS: BP 121/75; TEMP 97.6; O2SAT 95
== END 2023-12-04 20:00 | disposition home or self-care (01) ==
LOC: M ED 16:52
DX: R07.9 Chest pain, unspecified (principal); I48.91 Unspecified atrial fibrillation; I10 Essential (primary) hypertension; N20.0 Calculus of kidney; F17.210 Nicotine dependence, cigarettes, uncomplicated; Z88.8 Allergy status to other drugs, medicaments and biological substances; Z79.51 Long term (current) use of inhaled steroids; Z79.899 Other long term (current) drug therapy

== ENCOUNTER → 2024-03-24 | Outpatient (REF) | payer OTHER ==
[~2024-03-24] MED LIST changes: +ALBU8.5H; +AMLO1TAB24; +FLUTISP; +GABA600T4; +METO200T15 PO; -METO200T28 PO; +OXYC-1
[2024-03-24 17:47] LABS: APPEARANCE, URINE CLEAR (CLEAR); BACTERIA, URINE AUTO NEGATIVE (NEGATIVE); BILIRUBIN, URINE AUTO NEGATIVE (NEGATIVE); BLOOD, URINE BLOOD NEGATIVE (NEGATIVE); COLOR, URINE YELLOW (YELLOW); GLUCOSE, URINE (UA) AUTO NEGATIVE (NEGATIVE); KETONE, URINE AUTO NEGATIVE (NEGATIVE); LEUKOCYTE ESTERASE, URINE AUTO NEGATIVE (NEGATIVE); NITRITE, URINE AUTO NEGATIVE (NEGATIVE); PROTEIN, URINE AUTO NEGATIVE (NEGATIVE); RBC, URINE AUTO 0 /HPF (0-3); SPECIFIC GRAVITY URINE AUTO 1.012 (1.002-1.035); SQUAMOUS EPITHELIAL CELL UR AU 0 /HPF (0-6); UROBILINOGEN, URINE AUTO 0.2 mg/dL (0.0-2.0); WBC, URINE AUTO 0 /HPF (0-3)
== END ==
LOC: M SMT 16:48
PROVIDERS: ATTEND Physician Assistant
DX: N23 Unspecified renal colic (principal)

== ENCOUNTER 2025-01-09 02:01 | Emergency (ER) | payer OTHER ==
[~2025-01-09] VITALS: Ht 175.3 cm; Wt 59.4 kg
[~2025-01-09 02:01] MED LIST changes: +GABA-1172 PO; +GABA-1490; +GABA-1635 PO; -GABA-282 PO; -GABA600T4; -GABA800T4 PO
[2025-01-09 02:02] VITALS: BP 195/98; TEMP 97.8; O2SAT 98
== END 2025-01-09 04:39 | disposition left against medical advice (07) ==
LOC: M ED 02:01
DX: Z53.21 Procedure and treatment not carried out due to patient leaving prior to being seen by health care provider (principal)

== ENCOUNTER → 2025-03-21 | Outpatient (REF) | payer OTHER | LOC: M LABSMT 14:59 | PROVIDERS: ATTEND Physician Assistant | DX: Z53.9 Procedure and treatment not carried out, unspecified reason (principal) ==